=== PATIENT | male | born 1985 | race Caucasian/White ===

== ENCOUNTER 2016-10-23 11:15 | Emergency (ER) | payer OTHER ==
[~2016-10-23] VITALS: Ht 180.3 cm; Wt 77.6 kg
[2016-10-23 11:24] VITALS: BP 143/85; PULSE 116; TEMP 36.8; O2SAT 96; Ht 180.3 cm; Wt 77.6 kg
[2016-10-23] MEDS ORDERED: NVLGI/PEN SQ (11:38)
--- NOTE | 2016-10-23 12:49 | EMERGENCY ROOM VISIT NOTE ---
ED Visit Note First contact with patient: 12:10 31-year-old male with an abscess on the right side of his neck which has been draining. The patient was fully evaluated by Joe Almanzar PA-C. Please see his note. I also independently evaluated the patient. The abscess/cyst appears to be deflated. There is some persistent drainage. I do not believe it requires further I&D at this time. The patient has been on antibiotics. A culture was obtained. We will await results of the culture prior to starting another antibiotic. The patient should follow-up with ENT if it continues to drain or gets any bigger.
--- NOTE | 2016-10-23 17:57 | EMERGENCY ROOM VISIT NOTE ---
History First contact with patient: 12:10 Chief Complaint: BLEEDING Stated Complaint: BOIL/CYST WILL NOT STOP BLEEDING Nursing Triage Summary: Patient has an abcess, right side of neck. STarted draining approximately one week ago. [facility] Site draining purulent sangenous drainage. History of Present Illness The patient is a 31 year old white male who presents to the Emergency Room with complaints of a draining wound on his right lower neck. Patient states he has had a cyst over his right lower neck for at least 2 years. It was rather large. Last week it decompressed and was painful. He states he was seen at an urgent care clinic and was placed on Bactrim. The skin opened over the cyst and he states a large amount of pus drained from the area. At this point will not stop draining. He states he finished his antibiotics approximately one week ago. He was at work today and the wound would not stop draining. His boss sent him to the ED for evaluation and stated he could not work with a draining wound. He does work at a [employer]. No other complaints at this point. He has not seen any surgeon for excision. Review of Systems REVIEW OF SYSTEM: HEENT: No dizziness, visual problems, hearing loss, or tinnitus. There is no difficulty swallowing and no oral lesions are present. PULMONARY: No cough, shortness of breath, sputum production or hemoptysis. CARDIOVASCULAR: No chest pain, palpitations, shortness of breath or peripheral edema. GASTROINTESTINAL: No diarrhea, constipation, nausea, vomiting, or abdominal pain. GENITOURINARY: No dysuria, frequency, urgency or nocturia. NEUROLOGIC: No weakness, muscle tenderness, epilepsy or history of neurological problems. MUSCULOSKELETAL: No history of joint tenderness/swelling. No history of arthritis or arthralgias. SKIN: No rashes or lesions. PSYCHIATRIC: Positive history of depression ENDOCRINE: No history of thyroid disorders, or abnormal hair growth. Past Medical/Surgical History Medical Problems: (1) Dental Disorder Nos (2) Diabetes (3) Hypertension (4) Major depressive disorder, recurrent episode (5) Male Genital Dis Nos (6) Rectal & Anal Hemorrhage Family History Cancer Diabetes mellitus Heart disease Hypertension Kidney disease Kidney stones Seizures Social History Smoking Status: Current Every Day Smoker Smokeless Tobacco Use: No Drug Use: marijuana Marital Status: single Housing Status: lives with family Occupation Status: employed Current/Historical Medications Scheduled Insulin Aspart (Novolog Flexpen), Unknown Dose SQ TID Insulin Glargine (Lantus Solostar), 15 UNITS SQ AMPM Allergies Coded Allergies: Codeine (Verified Adverse Reaction, Intermediate, BECOMES VERY AGGRESSIVE , 10/23/16) Physical Exam Vital Signs Date Time Temp Pulse Resp B/P Pulse Ox O2 Delivery O2 Flow Rate FiO2 10/23/16 11:24 36.8 116 20 143/85 96 Room Air Pain Rating (0-10): 4.0 Physical Exam Gen.: Well-developed, well-nourished, young white male, in obvious discomfort. No acute distress. Laying on a bed. Alert and oriented. Skin:Warm and dry with good turgor. No rashes. No erythema. He has a punctate opening over his right lower neck. There is bloody purulent drainage oozing from the area. It is slowly expressible. There is induration of the skin around the opening. Mild ecchymosis as well. Cyst wall is palpable. The patient is not diaphoretic. No abrasions. Musculoskeletal: Patient has full range of motion of his neck and right shoulder. Medical Decision & Procedures ED Course Patient was educated regarding today's findings. Conservative care measures were discussed. The sebaceous cyst has ruptured. There is only a small amount of resistant drainage. A pressure dressing was applied. It is close to the carotid vasculature. He will likely require the cyst wall to be excised, but this will need to be done by general surgery or ENT. I do not think opening it up further in the ED is necessary at this point. He may continue to express the small amount of purulent drainage. He may return to work if he can keep the area covered and dry. I do not think antibiotics are necessary at this point as it is are draining, almost entirely decompressed, and he was on antibiotics last week. Wound culture was obtained to see if this is consistent with MRSA. Patient was seen in conjunction with Dr. Schultz, who also evaluated the patient and concurred with today's diagnosis and treatment plan. Medical Decision Possibility of sebaceous cyst, fistula, cellulitis, and retained foreign body were considered. Impression Primary Impression: Sebaceous cyst Departure Information Dispostion Home / Self-Care Condition GOOD Referrals Shereen Nieto M.D. Forms HOME CARE DOCUMENTATION FORM, MOTRIN USE, TYLENOL USE, IMPORTANT VISIT INFORMATION Patient Instructions My [facility] Additional Instructions Warm moist compresses to the neck several times per day to promote drainage Follow-up with ENT to discuss excision Tylenol and Motrin every 6 hours as needed for discomfort Patient may return to work today as long as the wound is covered and is no external drainage
[2016-12-11] MEDS ORDERED: NCDT21 TD (14:56)
[2016-12-11] MEDS ORDERED: NVLGIPEN SC (14:56)
[2017-04-02] MEDS ORDERED: INSDGIPEN SQ (11:38)
[2017-04-04] MEDS ORDERED: NICO21DI4 EXT (13:06)
[2017-04-04] MEDS ORDERED: NVLGI7030 SC (13:06)
== END 2016-10-23 13:13 | disposition home or self-care (01) ==
LOC: C.EDB 11:17 → C.EDC 13:13
DX: L72.3 Sebaceous cyst (principal); E11.9 Type 2 diabetes mellitus without complications; I10 Essential (primary) hypertension; F32.9 Major depressive disorder, single episode, unspecified; Z83.3 Family history of diabetes mellitus; Z82.49 Family history of ischemic heart disease and other diseases of the circulatory system; Z82.0 Family history of epilepsy and other diseases of the nervous system; F17.210 Nicotine dependence, cigarettes, uncomplicated; Z79.4 Long term (current) use of insulin

== ENCOUNTER 2016-12-09 20:33 | Inpatient (IN) | payer OTHER ==
[~2016-12-09] VITALS: Ht 180.3 cm; Wt 79.0 kg
[~2016-12-09 20:33] MED LIST: NVLGI/PEN SQ
[2016-12-09] MEDS ORDERED: SODIUM CHLORIDE 0.9% 1000ML 2,000 ML IV STA (20:52)
--- NOTE | 2016-12-09 21:12 | DIAGNOSTIC IMAGING REPORT ---
CHEST ONE VIEW PORTABLE CLINICAL HISTORY: Mood Disorder COMPARISON STUDY: 06/18/2016 FINDINGS: The cardiac and mediastinal contours are normal. There is no evidence of focal pulmonary consolidation. There is no evidence of failure. No pleural effusions are visualized.[ IMPRESSION: No active disease in the chest. Electronically signed by: Ramon Keyes M.D. 12/09/2016 9:11 PM Dictated Date/Time: 12/09/2016 9:10 PM
[2016-12-09] MEDS ORDERED: NVLGI/PEN SQ (21:16)
[2016-12-09 21:36] LABS: ISTAT CARBON DIOXIDE 23 mEq/l (24-31); ISTAT CHLORIDE 89 mEq/L (101-112); ISTAT CREATININE 1.1 mg/dl (0.6-1.3); ISTAT HEMATOCRIT 44 % (42-52); ISTAT IONIZED CALCIUM 1.14 mmol/l (1.12-1.32); ISTAT SODIUM 128 mEq/L (135-144)
[2016-12-09] MEDS ORDERED: INSULIN IV INFUSION PROTOCOL STA ×2 (21:46→22:58)
[2016-12-09 21:57] LABS: BUN/CREATININE RATIO 8.5 (10-20); CALCIUM 8.2 mg/dl (8.5-10.1); CREATININE 1.7 mg/dl (0.60-1.40); POTASSIUM 4.3 mmol/L (3.5-5.1); THYROID STIMULATING HORMONE 1.08 uIu/ml (0.300-4.500)
[2016-12-09] MEDS ORDERED: INSULIN IV INFUSION PROTOCOL SCH (22:00)
[2016-12-09] MEDS ORDERED: MODERATE STRESS LEVEL ONE (22:00)
[2016-12-09] MEDS ORDERED: INSULIN HUMAN REGULAR IV BOLUS 4 UNIT in SYRINGE 0 ML IV STA (22:02)
[2016-12-09] MEDS ORDERED: INSULIN REGULAR 250 UNITS in SODIUM CHLORIDE 0.9% 250ML 250 ML IV STA (22:03)
[2016-12-09 22:09] LABS: BETA-HYDROXYBUTYRATE 31.18 mg/dL (0.2-2.81)
[2016-12-09 22:13] LABS: URINE APPEARANCE CLEAR (CLEAR); URINE BILIRUBIN NEG (NEG); URINE COLOR YELLOW; URINE NITRITE NEG (NEG); URINE PH 5.5 (4.5-7.5); UROBILINOGEN NEG (NEG)
[2016-12-09 22:17] LABS: MANUAL MICROSCOPIC REQUIRED? NO; REVIEW REQ? NO
[2016-12-09 22:22] LABS: VEN BLD GAS O2 SATURATION < 60.0 %; VEN BLOOD GAS BASE EXCESS 0.1 mmol/L; VENOUS BLOOD GAS PCO2 51 mmHg (38.0-50.0); VENOUS BLOOD GAS PO2 22 mmHg
[2016-12-09 22:28] LABS: BENZODIAZEPINE, URINE NEG (NEG); COCAINE,URINE NEG (NEG); PHENCYCLIDINE, URINE NEG (NEG)
[2016-12-09] MEDS ORDERED: PENDING NSS+20mEq KCL IVF SCH (23:00)
[2016-12-09] MEDS ORDERED: DC ALL PREVIOUSLY ORDERED DIABETES MEDS ONE (23:00)
[2016-12-09] MEDS ORDERED: DKA GOAL RANGE 150-250 mg/dl 1 EA ONE (23:00)
[2016-12-09] MEDS ORDERED: PHARMACY GLYCEMIC MGMT CONSULT PRN (23:00)
[2016-12-09] MEDS ORDERED: SEVERE STRESS LEVEL ONE (23:00)
[2016-12-09] MEDS ORDERED: PENDING D5 1/2NS+20mEq KCL IVF SCH (23:00)
--- NOTE | 2016-12-09 23:02 | History and Physical ---
History & Physical Date & Time of Service: Dec 09, 2016 at 23:02 Chief Complaint: Doesn't Want To Live Anymore, Needs Help Primary Care Physician: Kylah Orellana D.O. History of Present Illness Source: patient this is 31 yo M with hx of Type 1 DM diagnosed approx 3 yrs back on Lantus and NovoLog insulin -poorly controlled BSG ( A1C ~13 ) hx of depression and anxiety disorder, presented to ED with suicidal ideation - severe depression " life is not worth living any more " pt has been going through very stressful times -having financial crisis as he is responsible to pay for child support of 5 young children mentions his Pay check has been Zero , has been able to visit the kids also could not asked for custody rights as he can not afford to pay for the court visits He has been feeling very down in past 2 weeks, having crying spells, stopped taking his insulins , binging on sugary food and drinks -in order to get into Diabetic Coma has been having nausea /vomiting , blurred vision , increased thirst , increased urination , severe acid reflux symptoms in the ED BSG elevated > 900 , with increased anion gap , acute renal failure , metabolic acidosis pt given iV fluids bolus , started on insulin gtt during my interview pt mentions of feeling much better -abdominal pain , cramps , nausea , headache has improved feels very depressed and hopeless, crying says that he tried to asencio his depression for past 2 weeks , now can not get out of it , does not feel there is any thing in life worth living for pt denies of any drug overdose , alcohol binging Past Medical/Surgical History Medical Problems: (1) Diabetes Status: Chronic (2) Hypertension Status: Chronic Family History Cancer Diabetes mellitus Heart disease Hypertension Kidney disease Kidney stones Seizures Social History Smoking Status: Never Smoker Drug Use: marijuana Marital Status: single Housing status: lives with family Occupational Status: employed Immunizations History of Influenza Vaccine: Unknown History of Tetanus Vaccine?: Unknown History of Pneumococcal: Unknown Multi-Drug Resistant Organisms History of MDRO: No Allergies Coded Allergies: Codeine (Verified Adverse Reaction, Intermediate, BECOMES VERY AGGRESSIVE , 12/09/16) Home Medications Scheduled Insulin Aspart (Novolog Flexpen), 1 DOSE SQ SLIDING SCALE Insulin Glargine (Lantus Solostar), 15 UNITS SQ AMPM Review of Systems Constitutional: + chills, + fatigue, + fever, + sweats, + weakness, + weight loss Eyes: + diplopia, + worsening of vision Respiratory: + dyspnea at rest, + dyspnea on exertion, + shortness of breath Cardiovascular: + chest pain, + palpitations Abdomen: + nausea, + pain, + vomiting Musculoskeletal: + calf pain, + joint pain, + muscle pain Genitourinary - Male: + urinary frequency Neurologic: + balance problems, + numbness/tingling, + vertigo, + weakness Psychiatric: + anhedonism, + anxiety, + depression symptoms, + insomnia, + problem reported (suicidial ideation ) Endocrine: + excessive thirst, + fatigue Physical Exam Vital Signs Date Time Temp Pulse Resp B/P Pulse Ox O2 Delivery O2 Flow Rate FiO2 12/09/16 22:34 61 18 130/72 98 Room Air 12/09/16 20:37 36.5 91 20 145/91 100 Room Air General Appearance: + moderate distress (depressed , very tearful ) Head: normocephalic, atraumatic Eyes: sclerae normal Neck: no JVD Respiratory/Chest: chest non-tender, lungs clear, normal breath sounds, no respiratory distress Cardiovascular: regular rate, rhythm Abdomen/GI: non tender, soft Extremities/Musculoskelatal: normal capillary refill, no pedal edema 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: alert, oriented x 3, + pertinent finding (depressed ) Skin: normal color, warm/dry, no rash Diagnostics Laboratory Results Results Past 24 Hours Test 12/09/16 20:09 12/09/16 20:49 12/09/16 21:10 12/09/16 21:22 Range/Units Sodium Level 128 136-145 mmol/L Potassium Level 4.3 3.5-5.1 mmol/L Chloride Level 89 98-107 mmol/L Carbon Dioxide Level 25 21-32 mmol/L Anion Gap 14.0 21.0 16-25 mmol/L Blood Urea Nitrogen 14 7-18 mg/dl Creatinine 1.70 0.60-1.40 mg/dl Est Creatinine Clear Calc Drug Dose 68.3 ml/min Estimated GFR () 61.8 Estimated GFR (Non- 53.3 BUN/Creatinine Ratio 8.5 10-20 Random Glucose 928 70-99 mg/dl Calcium Level 8.2 8.5-10.1 mg/dl Total Bilirubin 0.6 0.2-1 mg/dl Direct Bilirubin 0.1 0-0.2 mg/dl Aspartate Amino Transf (AST/SGOT) 12 15-37 U/L Alanine Aminotransferase (ALT/SGPT) 20 12-78 U/L Alkaline Phosphatase 96 45-117 U/L Total Protein 6.6 6.4-8.2 gm/dl Albumin 3.8 3.4-5.0 gm/dl Beta-Hydroxybutyric Acid 31.18 0.2-2.81 mg/dL Thyroid Stimulating Hormone (TSH) 1.080 0.300-4.500 uIu/ml Ethyl Alcohol mg/dL < 3.0 0-3 mg/dl Bedside Glucose > 600 70-99 mg/dl Urine Color YELLOW Urine Appearance CLEAR CLEAR Urine pH 5.5 4.5-7.5 Urine Specific [place] 1.030 1.000-1.030 Urine Protein NEG NEG Urine Glucose (UA) 3+ NEG Urine Ketones 1+ NEG Urine Occult Blood NEG NEG Urine Nitrite NEG NEG Urine Bilirubin NEG NEG Urine Urobilinogen NEG NEG Urine Leukocyte Esterase NEG NEG Urine Opiates Screen NEG NEG Urine Methadone, Qualitative NEG NEG Urine Barbiturates NEG NEG Urine Phencyclidine (PCP) Level NEG NEG Ur Amphetamine/Methamphetamine NEG NEG MDMA (Ecstasy) Screen NEG NEG Urine Benzodiazepines Screen NEG NEG Urine Cocaine Metabolite NEG NEG Urine Marijuana (THC) POS NEG Bedside Hemoglobin 15.0 14.0-18.0 g/dl Bedside Hematocrit 44 42-52 % Bedside Sodium 128 135-144 mEq/L Bedside Potassium 4.3 3.3-5.0 mEq/L Bedside Chloride 89 101-112 mEq/L Bedside Total CO2 23 24-31 mEq/l Bedside Blood Urea Nitrogen 15 7-18 mg/dl Bedside Creatinine 1.1 0.6-1.3 mg/dl Bedside Glucose (other) > 700 70-99 mg/dl Bedside Ionized Calcium (Andrwe) 1.14 1.12-1.32 mmol/l Test 12/09/16 22:08 12/09/16 22:15 Range/Units Venous Blood pH 7.34 7.36-7.41 Venous Blood Partial Pressure CO2 51 38.0-50.0 mmHg Venous Blood Partial Pressure O2 22 mmHg Venous Blood HCO3 27 mmol/L Venous Blood Oxygen Saturation < 60.0 % Venous Blood Base Excess 0.1 mmol/L Bedside Glucose > 600 70-99 mg/dl CXR normal Normal EKG Impression Assessment and Plan DKA /TYPE 1 DM VERY POORLY CONTROLLED has not been taking insulin intentionally for past 2 weeks eating and drinking food and drink with high sugar content -with intention to get into diabetic coma presented with DKA , elevated anion gap , elevated beta hydroxybutyrate , positive urine ketone , BSG > 900 started on IV insulin gtt IV fluid bolus given due to severe dehydration , vol loss cont IV fluid NSS with 20 Kcl to prevent hypokalemia with insulin infusion Lab work : PRP , MG. phos will be followed q 4hrs as per DKA protocol Hb A1 c > 13 ( showing baseline poor control ) recreational assistant consulted pharmacy consulted for glycemic management ACUTE KIDNEY INJURY : Due to above cont IVF follow PRP DEPRESSION /SUICIDAL IDEATION does not follow with psychiatry as out pt Psych consult requested pt will benefit with SSRI Tx will defer to Psychiatry if pt meets criteria for in patient psych admission FULL CODE Resuscitation Status FULL RESUSCITATION VTE Prophylaxis VTE Risk Assessment Done? Y/N: Yes Risk Level: Moderate Given or contraindicated: Unfractionated heparin SQ
[2016-12-09] MEDS ORDERED: ONDANSETRON INJ 2 MG/ML 2 ML VIAL IV PRN (23:15)
[2016-12-09] MEDS ORDERED: ACETAMINOPHEN 325 MG TAB PO PRN (23:15)
[2016-12-09] MEDS ORDERED: MAGNESIUM HYDROXIDE SUSP 30 ML UDC PO PRN (23:15)
[2016-12-09] MEDS ORDERED: POLYETHYLENE (MIRALAX) 17 GM PACK PO PRN (23:15)
[2016-12-09] MEDS ORDERED: ALUMINUM/MAGNESIUM/SIMETH (MAALOX MAX) 30 ML UDC PO PRN (23:15)
[2016-12-09] MEDS ORDERED: LORAZEPAM 2 MG/ML 1 ML VIAL IV PRN (23:15)
[2016-12-09 23:40] LABS: HEMATOCRIT 41.2 % (42-52); MEAN CELL VOLUME 87.7 fL (80-100); MEAN CORPUSCULAR HEMOGLOBIN 33.6 pg (25-34); MEAN CORPUSCULAR HGB CONC 38.3 g/dl (32-36); MEAN PLATELET VOLUME 9.6 fL (7.4-10.4); PLATELET COUNT 133 K/uL (130-400); WHITE BLOOD COUNT 2.64 K/uL (4.8-10.8)
[2016-12-09 23:47] LABS: BASO % 0.8 %; BASO ABS # 0.02 K/uL (0-0.2); COMPLETE YES; EOS % 2.3 %; LYMPH % 24.6 %; LYMPH ABS # 0.65 K/uL (1.2-3.4); MONO % 8.7 %; NEUT % 63.6 %
[2016-12-10 00:20] VITALS: BP 130/72; PULSE 90; TEMP 37; O2SAT 99; BMI 24.5
[2016-12-10] MEDS ORDERED: SODIUM CHLORIDE 0.9% 1000ML 1,000 ML IV SCH (00:30)
[2016-12-10] MEDS ORDERED: GLUCAGON FOR INJ 1 MG VIAL SQ PRN (00:45)
[2016-12-10] MEDS ORDERED: GLUCOSE 40% GEL 15 GM TUBE PO PRN (00:45)
[2016-12-10] MEDS ORDERED: DEXTROSE 50% 50 ML SYR IV PRN (00:45)
[2016-12-10] MEDS ORDERED: GLUCOSE 10 TABS/TUBE PO PRN (00:45)
--- NOTE | 2016-12-10 01:19 | EMERGENCY ROOM VISIT NOTE ---
History Report prepared by Jennifer: Shyann Mejia Under the Supervision of: Dr. Henrry Ch D.O. First contact with patient: 20:40 Chief Complaint: MENTAL HEALTH EVALUATION Stated Complaint: DOESN'T WANT TO LIVE ANYMORE, NEEDS HELP History of Present Illness The patient is a 31 year old male who presents to the Emergency Room with complaints of constant depression and suicidal thoughts beginning 2 weeks ago. The patient states that he has been dealing with depression for the last 10 years by himself and recently his depression has worsened and he has realized that he needs help dealing with it. He reports that he has not seen anyone for his depression since his dad when he was 14. He states that he is a type I diabetic and has been trying to put himself into a diabetic coma over the last 2 weeks. The patient notes that he is struggling with money and paying child support and does not have the money to buy test strips. He complains of chest pressure beginning this morning about 12 hours ago that lasted a short period of time. He notes that he has been having heart burn lately. He denies any visual or auditory hallucinations, headache, fevers, shortness of breath, nausea , vomiting, diarrhea, pain with urination, drug or alcohol use, and melena. He notes suicidal ideation. Source of History: patient Onset: 2 weeks Position: other (mental health) Quality: other (depression) Timing: constant Associated Symptoms: + chest pain, No SOB, No diarrhea, No fevers, No headache, No melena, No nausea, No urinary symptoms, No vomiting Note: Pt has suicidal ideation. He denies any visual or auditory hallucinations, drug or alcohol use. Review of Systems See HPI for pertinent positives & negatives. A total of 10 systems reviewed and were otherwise negative. Past Medical & Surgical Medical Problems: (1) Dental Disorder Nos (2) Diabetes (3) Hypertension (4) Major depressive disorder, recurrent episode (5) Male Genital Dis Nos (6) Rectal & Anal Hemorrhage Family History Cancer Diabetes mellitus Heart disease Hypertension Kidney disease Kidney stones Seizures Social History Smoking Status: Current Every Day Smoker Drug Use: marijuana Marital Status: single Housing Status: lives with family Occupation Status: employed Current/Historical Medications Scheduled Insulin Aspart (Novolog Flexpen), 1 DOSE SQ SLIDING SCALE Insulin Glargine (Lantus Solostar), 15 UNITS SQ AMPM Allergies Coded Allergies: Codeine (Verified Adverse Reaction, Intermediate, BECOMES VERY AGGRESSIVE , 12/09/16) Physical Exam Vital Signs Date Time Temp Pulse Resp B/P Pulse Ox O2 Delivery O2 Flow Rate FiO2 12/09/16 22:34 61 18 130/72 98 Room Air 12/09/16 20:37 36.5 91 20 145/91 100 Room Air Physical Exam GENERAL: sitting up in bed, alert, well appearing, well nourished, no distress, non-toxic EYE EXAM: normal conjunctiva OROPHARYNX: no exudate, no erythema, lips, buccal mucosa, and tongue normal and mucous membranes are moist NECK: supple, no nuchal rigidity, no adenopathy, non-tender LUNGS: Clear to auscultation. Normal chest wall mechanics HEART: no murmurs, S1 normal and S2 normal ABDOMEN: abdomen soft, non-tender, normo-active bowel sounds, no masses, no rebound or guarding. BACK: Back is symmetrical on inspection and there is no deformity, no midline tenderness, no CVA tenderness. SKIN: no rashes and no bruising UPPER EXTREMITIES: upper extremities are grossly normal. LOWER EXTREMITIES: No pitting edema. NEURO EXAM: Normal sensorium, cranial nerves II-XII grossly intact, normal speech, no gross weakness of arms, no gross weakness of legs. PSYCH: Admits to suicidal ideations with a plan, denies auditory and visual hallucinations Medical Decision & Procedures ER Provider Diagnostic Interpretation: Radiology results as stated below per my review and the radiologist's interpretation: CHEST ONE VIEW PORTABLE FINDINGS: The cardiac and mediastinal contours are normal. There is no evidence of focal pulmonary consolidation. There is no evidence of failure. No pleural effusions are visualized. IMPRESSION: No active disease in the chest. Electronically signed by: Ramon Keyes M.D. 12/09/2016 9:11 PM Dictated Date/Time: 12/09/2016 9:10 PM Laboratory Results 12/09/16 20:09 Red Blood Count 4.70, Mean Corpuscular Volume 87.7, Mean Corpuscular Hemoglobin 33.6, Mean Corpuscular Hemoglobin Concent 38.3, Mean Platelet Volume 9.6, Neutrophils (%) (Auto) 63.6, Lymphocytes (%) (Auto) 24.6, Monocytes (%) (Auto) 8.7, Eosinophils (%) (Auto) 2.3, Basophils (%) (Auto) 0.8, Neutrophils # (Auto) 1.68, Lymphocytes # (Auto) 0.65, Monocytes # (Auto) 0.23, Eosinophils # (Auto) 0.06, Basophils # (Auto) 0.02 Test 12/09/16 20:09 12/09/16 21:10 12/09/16 21:22 12/09/16 22:08 White Blood Count 2.64 K/uL (4.8-10.8) Red Blood Count 4.70 M/uL (4.7-6.1) Hemoglobin 15.8 g/dL (14.0-18.0) Hematocrit 41.2 % (42-52) Mean Corpuscular Volume 87.7 fL (80-100) Mean Corpuscular Hemoglobin 33.6 pg (25-34) Mean Corpuscular Hemoglobin Concent 38.3 g/dl (32-36) Platelet Count 133 K/uL (130-400) Mean Platelet Volume 9.6 fL (7.4-10.4) Neutrophils (%) (Auto) 63.6 % Lymphocytes (%) (Auto) 24.6 % Monocytes (%) (Auto) 8.7 % Eosinophils (%) (Auto) 2.3 % Basophils (%) (Auto) 0.8 % Neutrophils # (Auto) 1.68 K/uL (1.4-6.5) Lymphocytes # (Auto) 0.65 K/uL (1.2-3.4) Monocytes # (Auto) 0.23 K/uL (0.11-0.59) Eosinophils # (Auto) 0.06 K/uL (0-0.5) Basophils # (Auto) 0.02 K/uL (0-0.2) RDW Standard Deviation 40.6 fL (36.4-46.3) RDW Coefficient of Variation 12.6 % (11.5-14.5) Immature Granulocyte % (Auto) 0.0 % Immature Granulocyte # (Auto) 0.00 K/uL (0.00-0.02) Red Blood Cell Morphology Unremarkable Est Creatinine Clear Calc Drug Dose 68.3 ml/min Total Bilirubin 0.6 mg/dl (0.2-1) Direct Bilirubin 0.1 mg/dl (0-0.2) Aspartate Amino Transf (AST/SGOT) 12 U/L (15-37) Alanine Aminotransferase (ALT/SGPT) 20 U/L (12-78) Alkaline Phosphatase 96 U/L (45-117) Total Protein 6.6 gm/dl (6.4-8.2) Albumin 3.8 gm/dl (3.4-5.0) Beta-Hydroxybutyric Acid 31.18 mg/dL (0.2-2.81) Thyroid Stimulating Hormone (TSH) 1.080 uIu/ml (0.300-4.500) Ethyl Alcohol mg/dL < 3.0 mg/dl (0-3) Urine Color YELLOW Urine Appearance CLEAR (CLEAR) Urine pH 5.5 (4.5-7.5) Urine Specific [place] 1.030 (1.000-1.030) Urine Protein NEG (NEG) Urine Glucose (UA) 3+ (NEG) Urine Ketones 1+ (NEG) Urine Occult Blood NEG (NEG) Urine Nitrite NEG (NEG) Urine Bilirubin NEG (NEG) Urine Urobilinogen NEG (NEG) Urine Leukocyte Esterase NEG (NEG) Urine Opiates Screen NEG (NEG) Urine Methadone, Qualitative NEG (NEG) Urine Barbiturates NEG (NEG) Urine Phencyclidine (PCP) Level NEG (NEG) Ur Amphetamine/Methamphetamine NEG (NEG) MDMA (Ecstasy) Screen NEG (NEG) Urine Benzodiazepines Screen NEG (NEG) Urine Cocaine Metabolite NEG (NEG) Urine Marijuana (THC) POS (NEG) Bedside Hemoglobin 15.0 g/dl (14.0-18.0) Bedside Hematocrit 44 % (42-52) Bedside Sodium 128 mEq/L (135-144) Bedside Potassium 4.3 mEq/L (3.3-5.0) Bedside Chloride 89 mEq/L (101-112) Bedside Total CO2 23 mEq/l (24-31) Bedside Blood Urea Nitrogen 15 mg/dl (7-18) Bedside Creatinine 1.1 mg/dl (0.6-1.3) Bedside Glucose (other) > 700 mg/dl (70-99) Bedside Ionized Calcium (Andrew) 1.14 mmol/l (1.12-1.32) Venous Blood pH 7.34 (7.36-7.41) Venous Blood Partial Pressure CO2 51 mmHg (38.0-50.0) Venous Blood Partial Pressure O2 22 mmHg Venous Blood HCO3 27 mmol/L Venous Blood Oxygen Saturation < 60.0 % Venous Blood Base Excess 0.1 mmol/L Laboratory results per my review. Medications Administered Medications (Trade) Dose Ordered Sig/Isac Route Start Time Stop Time Status Last Admin Dose Admin Sodium Chloride 2,000 ml @ 999 mls/hr Q2H1M STAT IV 12/09/16 20:52 12/09/16 22:52 DC 12/09/16 20:52 999 MLS/HR Insulin Human Regular 4 unit/ Syringe 4 ml @ 1 mls/min NOW STAT IV 12/09/16 22:02 12/09/16 22:05 DC 12/09/16 22:18 1 MLS/MIN Insulin Human Regular/Sodium Chloride (novoLIN-R/Nss 250ml) 252.5 ml @ 0 mls/hr NOW STAT IV 12/09/16 22:03 12/09/16 22:04 DC 12/09/16 22:19 4 MLS/HR ED Course ED COURSE: Vital signs were reviewed and normal The patients medical record was reviewed The above diagnostic studies were performed and reviewed. ED treatments and interventions as stated above. 2039: The patient was evaluated in room A7. A complete history and physical examination was performed. 2051: Sodium Chloride 2000 ml @ 999 mls/hr IV. 2145: Insulin Human Regular 1 ea NA. 2158: I spoke to the patient and updated him. 2199: Insulin Human Regular 1 ea NA, Insulin Protocol Moderate Stress Level 1 ea NA, Insulin Human Regular 4 unit/Syringe 4ml @ 1mls/min IV, Insulin Human Regular 250units/Sodium Chloride 252.5 ml @ 0mls/hr. 5: I reviewed the patient's case with Dr. Abdi will evaluate the patient for further management. 0000: Upon reevaluation, the patient is hemodynamically stable.I discussed my findings with the patient and he understands and agrees with the treatment plan. Based on the patients age, coexisting illnesses, exam and lab findings the decision to treat as an inpatient was made. The patient remained stable while under my care. The patient will be evaluated for further management. Medical Decision Differential diagnosis: Etiologies such as mood disorder, infection, hypoglycemia, electrolyte abnormalities, cardiac sources, intracerebral event, toxicologic, neurologic, as well as others were entertained. Patient is a 31-year-old male who presents the ER with suicidal ideations and a plan to go into a diabetic coma. He is type I diabetic and stop taking his insulin yesterday. Labs show a leukocytosis of 2.6. BSG was greater than 700. Sodium is slightly low at 128 but corrected is normal. Potassium is normal at 4.3. Lab glucose was 900. Patient did have ketones in his urine. VBG shows a slight acidosis at 7.34. He was placed on a insulin drip and bolus and given 2 L normal saline. He was updated bedside. He is agreeable to admission and will need evaluation by psychiatry for his suicidal ideations. Consults Time Called: [phone] Consulting Physician: Dr. Jni England Returned Call: [phone] I reviewed the patient's case with Dr. Abdi of [facility]. She will evaluate the patient for further management. Impression Primary Impression: Suicidal ideation Additional Impression: Hyperglycemia Scribe Attestation The scribe's documentation has been prepared under my direction and personally reviewed by me in its entirety. I confirm that the note above accurately reflects all work, treatment, procedures, and medical decision making performed by me. Departure Information Dispostion Being Evaluated By Hospitalist Referrals Kylah Orellana D.O. (PCP) Patient Instructions [facility] Problem Qualifiers
[2016-12-10 01:31] LABS: BUN/CREATININE RATIO 15.1 (10-20); CALCIUM 8.1 mg/dl (8.5-10.1); CREATININE 1.1 mg/dl (0.60-1.40); PHOSPHORUS 3.1 mg/dl (2.5-4.9); POTASSIUM 3.3 mmol/L (3.5-5.1)
[2016-12-10] MEDS ORDERED: NSS + 20MEQ KCL 1000ML 1,000 ML IV SCH (02:00)
[2016-12-10] MEDS ORDERED: NURSING VERBAL MED ORDER ONE ×2 (02:00→03:30)
[2016-12-10 02:23] LABS: BETA-HYDROXYBUTYRATE 14.03 mg/dL (0.2-2.81)
[2016-12-10] MEDS: D5W AND 1/2NSS + 20MEQ KCL 1,000 ML IV SCH ×3 (03:37→19:27)
[2016-12-10 04:00] VITALS: BP 114/69; PULSE 73; TEMP 36.5; O2SAT 97
[2016-12-10 04:52] LABS: BUN/CREATININE RATIO 17.1 (10-20); CALCIUM 8.3 mg/dl (8.5-10.1); CREATININE 0.81 mg/dl (0.60-1.40); MAGNESIUM 1.9 mg/dl (1.8-2.4)
[2016-12-10 04:54] LABS: INR 0.9 (0.9-1.1); PROTHROMBIN TIME (PATIENT) 9.8 SECONDS (9.0-12.0)
[2016-12-10 04:58] LABS: BETA-HYDROXYBUTYRATE 11.68 mg/dL (0.2-2.81); CHOLESTEROL/HDL RATIO 6.7; PHOSPHORUS 3.8 mg/dl (2.5-4.9)
[2016-12-10 05:13] LABS: HEMATOCRIT 36.4 % (42-52); MEAN CELL VOLUME 84.5 fL (80-100); MEAN CORPUSCULAR HEMOGLOBIN 33.4 pg (25-34); MEAN CORPUSCULAR HGB CONC 39.6 g/dl (32-36); MEAN PLATELET VOLUME 8.9 fL (7.4-10.4); PLATELET COUNT 129 K/uL (130-400); RED BLOOD COUNT 4.31 M/uL (4.7-6.1); WHITE BLOOD COUNT 4.28 K/uL (4.8-10.8)
[2016-12-10 05:57] LABS: ESTIMATED AVERAGE GLUCOSE 329 mg/dl; HA1C FLAG Normal (Normal)
[2016-12-10] MEDS ORDERED: POTASSIUM CHLORIDE 10 MEQ TABCR PO STA (06:11)
[2016-12-10 08:00] VITALS: BP 114/69; PULSE 83; TEMP 37; O2SAT 100
[2016-12-10] MEDS ORDERED: PNEUMOCOCCAL POLYSACCHARIDES 25 MCG/0.5 ML VIAL/SYR IM. ONE (08:00)
[2016-12-10] MEDS ORDERED: PNEUMOCOCCAL ADMINISTRATION CHARGE ONE (08:00)
[2016-12-10] MEDS ORDERED: INSULIN ASPART 100 UNITS/ML 3 ML PEN SC SCH ×2 (08:00→09:00)
[2016-12-10] MEDS: INSULIN GLARGINE SOLOSTAR 100 UNITS/ML 3 ML PEN SC SCH ×2 (08:03→20:12)
[2016-12-10] MEDS: PANTOprazole SOD 40 MG TAB PO SCH (08:05)
[2016-12-10] MEDS ORDERED: HEPARIN SOD 5000 UNIT/0.5 ML CARP SQ SCH (09:00)
--- NOTE | 2016-12-10 09:10 | Pharmacy Progress Note ---
Glycemic Control Intl Consult Date of Service Dec 10, 2016. Scope Glycemic Pharmacist consulted by Dr Abdi on 12/09/16 for glycemic control and to write orders per [facility] inpatient glycemic control protocol Objective Weight (Kilograms): 79.000 Accuchecks BSG (last 24hrs): Test 12/09/16 20:09 12/09/16 20:49 12/09/16 22:15 12/09/16 23:21 Random Glucose 928 mg/dl (70-99) Bedside Glucose > 600 mg/dl (70-99) > 600 mg/dl (70-99) 567 mg/dl (70-99) Test 12/10/16 00:38 12/10/16 00:54 12/10/16 01:29 12/10/16 02:22 Bedside Glucose 377 mg/dl (70-99) 336 mg/dl (70-99) 291 mg/dl (70-99) Random Glucose 395 mg/dl (70-99) Test 12/10/16 03:21 12/10/16 04:27 12/10/16 05:24 12/10/16 06:23 Bedside Glucose 250 mg/dl (70-99) 151 mg/dl (70-99) 135 mg/dl (70-99) Random Glucose 191 mg/dl (70-99) Test 12/10/16 07:44 12/10/16 08:44 Bedside Glucose 171 mg/dl (70-99) Laboratory Data (last 24hrs) Test 12/09/16 20:09 12/09/16 21:22 12/10/16 00:54 12/10/16 04:27 Anion Gap 14.0 mmol/L 21.0 mmol/L 11.0 mmol/L 10.0 mmol/L BUN/Creatinine Ratio 8.5 15.1 17.1 Blood Urea Nitrogen 14 mg/dl 17 mg/dl 14 mg/dl Creatinine 1.70 mg/dl 1.10 mg/dl 0.81 mg/dl Hemoglobin A1c 13.1 % Potassium Level 4.3 mmol/L 3.3 mmol/L 3.0 mmol/L Sodium Level 128 mmol/L 137 mmol/L 141 mmol/L White Blood Count 2.64 K/uL 4.28 K/uL Red Blood Count 4.70 M/uL Hemoglobin 15.8 g/dL Hematocrit 41.2 % Mean Corpuscular Volume 87.7 fL Mean Corpuscular Hemoglobin 33.6 pg Mean Corpuscular Hemoglobin Concent 38.3 g/dl Platelet Count 133 K/uL Mean Platelet Volume 9.6 fL Neutrophils (%) (Auto) 63.6 % Lymphocytes (%) (Auto) 24.6 % Monocytes (%) (Auto) 8.7 % Eosinophils (%) (Auto) 2.3 % Basophils (%) (Auto) 0.8 % Neutrophils # (Auto) 1.68 K/uL Lymphocytes # (Auto) 0.65 K/uL Monocytes # (Auto) 0.23 K/uL Eosinophils # (Auto) 0.06 K/uL Basophils # (Auto) 0.02 K/uL Recent Pertinent Medications Outpatient Anti-diabetic Regimen: * NovoLog * Lantus 15 units SQ BID The patient is currently receiving: * IV insulin infusion * severe protocol * Goal range 150-250mg/dL * NovoLog PC and HS for coverage of meals Risk Factors for Insulin Resistance: * IVF: NSS --> NS+20mEq KCl --> D51/2NS+20mEq KCl * Diet: T2DM * Elevated A1c Assessment & Plan ASSESSMENT: * ADA & AACE recommend a goal blood sugar range 140-180 mg/dl for the majority of critically ill & non-critically ill patients. However, more stringent targets may be selected in individual cases. 12/10/16 * 31 y/o type I diabetic (x ~3 years) who also suffers from depression and anxiety. * Recently stopped taking insulins and eating poorly to induce diabetic coma. * A1c elevated * patient feels hypoglycemic when BSG 117mg/dL per RN * BSG on admit ~900mg/dL, anion gap open, BHA elevated * Insulin infusion began in ED * Currently, BSGs WNL and gap closed * Time to transition off of insulin and to SQ basal/bolus insulin - utilize both weight based dosing as well as home regimen for dose calculation PLAN FOR INPATIENT GLYCEMIC CONTROL: * Insulin infusion currently active * Decrease goal range to 140-180mg/dL until transition complete * Overlap insulin infusion and SQ insulin for ~6 hours * Begin Lantus SQ BID * 5 units if BSG is below 120mg/dL * 10 units if BSG is 120-160mg/dL * 15 units if BSG is above 160mg/dL * Begin NovoLog AC and HS * Correction factor: 30mg/dL/unit * Carb ratio: 1 unit per 10 g of CHO consumed * Goal range: 140-180mg/dL while in ICU and also for elevated A1c (lower BSG feels hypoglycemic) * A1c current * added to discharge instructions RECOMMENDATIONS FOR DISCHARGE: * awaited * Please note that the plan above was derived based on current level of insulin resistance and hospital stress. These recommendations are appropriate for inpatient admission only. Plan of care upon discharge will need to be reassessed to avoid potential outpatient hypo/hyperglycemia. Thank you.
[2016-12-10 09:22] LABS: BUN/CREATININE RATIO 15.3 (10-20); CALCIUM 8.1 mg/dl (8.5-10.1); CREATININE 0.79 mg/dl (0.60-1.40); MAGNESIUM 1.8 mg/dl (1.8-2.4); POTASSIUM 3.4 mmol/L (3.5-5.1)
[2016-12-10 10:20] VITALS: Ht 180.3 cm; Wt 79.0 kg
[2016-12-10] MEDS ORDERED: PANTOprazole INJ 40 MG in SYRINGE 0 ML IV SCH (11:00)
[2016-12-10] MEDS: INSULIN ASPART 100 UNITS/ML 3 ML PEN SC SCH ×3 (11:00→21:39)
[2016-12-10] MEDS ORDERED: INSULIN REGULAR 250 UNITS in SODIUM CHLORIDE 0.9% 250ML 250 ML IV SCH (11:30)
[2016-12-10 12:00] VITALS: BP 118/59; PULSE 93; O2SAT 95; O2SAT 97
[2016-12-10 12:39] LABS: BUN/CREATININE RATIO 11.6 (10-20); CALCIUM 8.4 mg/dl (8.5-10.1); CREATININE 0.9 mg/dl (0.60-1.40); PHOSPHORUS 3.8 mg/dl (2.5-4.9); POTASSIUM 4.2 mmol/L (3.5-5.1)
[2016-12-10] MEDS: HEPARIN SOD 5000 UNIT/0.5 ML CARP SQ SCH ×2 (15:09→20:15)
[2016-12-10 16:58] LABS: BUN/CREATININE RATIO 14.7 (10-20); CALCIUM 8.4 mg/dl (8.5-10.1); CREATININE 0.78 mg/dl (0.60-1.40); MAGNESIUM 1.9 mg/dl (1.8-2.4); POTASSIUM 3.8 mmol/L (3.5-5.1)
--- NOTE | 2016-12-10 17:00 | Psychiatric Consultation ---
Consultation Date of Consultation Dec 10, 2016. Identifying Data Yosvany Gonzalez is a 31-year-old male who currently lives with various friends in [place]. He was admitted to medical floor for significantly elevated blood glucose after purposely stopping his insulin and eating inappropriate foods as a suicide attempt. Chief Complaint "It's all still hopeless". History of Present Illness patient known to me from a previous consultation in June 2016. Stressors are essentially the same, unable to support himself/find stable housing on amount he is able to make working (now at a [employer]). He has admitted to multiple staff (302 petitioning statement from nurse informatics educator on chart) that he has been suicidal with plan to from uncontrolled diabetes. glucose >900 on presentation, HGbA1C historically >13. Past Psychiatric History Current OP Treatment: no current treatment ([facility] referral in fall, unclear follow through) Prior OP Treatment: no prior treatment Prior Psych Hospitalizations: other (while in (basic), see consult) Suicide Attempts: Yes (kife to throat but denies now attempt, states wanted out of when found out sib ) Past Medication Trials historically declines Past Medical/Surgical History (1) DKA (diabetic ketoacidoses) (2) GERD (gastroesophageal reflux disease) (3) Hypertension Allergies Allergies: Coded Allergies: Codeine (Verified Adverse Reaction, Intermediate, BECOMES VERY AGGRESSIVE , 12/09/16) Home Medications Scheduled Insulin Aspart (Novolog Flexpen), 1 DOSE SQ SLIDING SCALE Insulin Glargine (Lantus Solostar), 15 UNITS SQ AMPM Family History Cancer Diabetes mellitus Heart disease Hypertension Kidney disease Kidney stones Seizures History of Suicide: Yes (biological sister commited suicide in college, little details known) Alcohol Use Alcohol Use In Past 12 Months: Yes (denies recent but hx of binge drinking) Smoking Use Smoking Status: Current Every Day Smoker Substance History regular MJ use Personal History Lives in: [place] area Education: graduated from high school, other Work History: [employer] Children: 5 preschool age children from 4 different women (including twin girls ) Spiritual Affiliation: Riley Review of Systems Psych: denies symptoms other than stated above Constitutional: denied Cardiovascular: denied GI: denied Neurologic: denied Remainder of 10 body systems also reviewed and denied other than noted above. Examination Vital Signs Vital Signs Past 12 Hours Date Time Temp Pulse Resp B/P Pulse Ox O2 Delivery O2 Flow Rate FiO2 4/7/17 12:00 97 Room Air 12/10/16 12:00 93 20 118/59 95 Room Air 12/10/16 08:00 Room Air 12/10/16 08:00 37.0 83 16 114/69 100 Room Air Laboratory Results Last 24 Hours Test 12/09/16 20:09 12/09/16 20:49 12/09/16 21:10 12/09/16 21:22 White Blood Count 2.64 K/uL Red Blood Count 4.70 M/uL Hemoglobin 15.8 g/dL Hematocrit 41.2 % Mean Corpuscular Volume 87.7 fL Mean Corpuscular Hemoglobin 33.6 pg Mean Corpuscular Hemoglobin Concent 38.3 g/dl Platelet Count 133 K/uL Mean Platelet Volume 9.6 fL Neutrophils (%) (Auto) 63.6 % Lymphocytes (%) (Auto) 24.6 % Monocytes (%) (Auto) 8.7 % Eosinophils (%) (Auto) 2.3 % Basophils (%) (Auto) 0.8 % Neutrophils # (Auto) 1.68 K/uL Lymphocytes # (Auto) 0.65 K/uL Monocytes # (Auto) 0.23 K/uL Eosinophils # (Auto) 0.06 K/uL Basophils # (Auto) 0.02 K/uL RDW Standard Deviation 40.6 fL RDW Coefficient of Variation 12.6 % Immature Granulocyte % (Auto) 0.0 % Immature Granulocyte # (Auto) 0.00 K/uL Red Blood Cell Morphology Unremarkable Prothrombin Time 9.8 SECONDS Prothromb Time International Ratio 0.9 Sodium Level 128 mmol/L Potassium Level 4.3 mmol/L Chloride Level 89 mmol/L Carbon Dioxide Level 25 mmol/L Anion Gap 14.0 mmol/L 21.0 mmol/L Blood Urea Nitrogen 14 mg/dl Creatinine 1.70 mg/dl Est Creatinine Clear Calc Drug Dose 68.3 ml/min Estimated GFR () 61.8 Estimated GFR (Non- 53.3 BUN/Creatinine Ratio 8.5 Random Glucose 928 mg/dl Estimated Average Glucose 329 mg/dl Hemoglobin A1c 13.1 % Calcium Level 8.2 mg/dl Total Bilirubin 0.6 mg/dl Direct Bilirubin 0.1 mg/dl Aspartate Amino Transf (AST/SGOT) 12 U/L Alanine Aminotransferase (ALT/SGPT) 20 U/L Alkaline Phosphatase 96 U/L Total Protein 6.6 gm/dl Albumin 3.8 gm/dl Beta-Hydroxybutyric Acid 31.18 mg/dL Thyroid Stimulating Hormone (TSH) 1.080 uIu/ml Ethyl Alcohol mg/dL < 3.0 mg/dl Bedside Glucose > 600 mg/dl Urine Color YELLOW Urine Appearance CLEAR Urine pH 5.5 Urine Specific [place] 1.030 Urine Protein NEG Urine Glucose (UA) 3+ Urine Ketones 1+ Urine Occult Blood NEG Urine Nitrite NEG Urine Bilirubin NEG Urine Urobilinogen NEG Urine Leukocyte Esterase NEG Urine Opiates Screen NEG Urine Methadone, Qualitative NEG Urine Barbiturates NEG Urine Phencyclidine (PCP) Level NEG Ur Amphetamine/Methamphetamine NEG MDMA (Ecstasy) Screen NEG Urine Benzodiazepines Screen NEG Urine Cocaine Metabolite NEG Urine Marijuana (THC) POS Bedside Hemoglobin 15.0 g/dl Bedside Hematocrit 44 % Bedside Sodium 128 mEq/L Bedside Potassium 4.3 mEq/L Bedside Chloride 89 mEq/L Bedside Total CO2 23 mEq/l Bedside Blood Urea Nitrogen 15 mg/dl Bedside Creatinine 1.1 mg/dl Bedside Glucose (other) > 700 mg/dl Bedside Ionized Calcium (Andrew) 1.14 mmol/l Test 12/09/16 22:08 12/09/16 22:15 12/09/16 23:21 12/10/16 00:38 Venous Blood pH 7.34 Venous Blood Partial Pressure CO2 51 mmHg Venous Blood Partial Pressure O2 22 mmHg Venous Blood HCO3 27 mmol/L Venous Blood Oxygen Saturation < 60.0 % Venous Blood Base Excess 0.1 mmol/L Bedside Glucose > 600 mg/dl 567 mg/dl 377 mg/dl Test 12/10/16 00:54 12/10/16 01:29 12/10/16 02:22 12/10/16 03:21 Venous Blood pH 7.40 Sodium Level 137 mmol/L Potassium Level 3.3 mmol/L Chloride Level 99 mmol/L Carbon Dioxide Level 27 mmol/L Anion Gap 11.0 mmol/L Blood Urea Nitrogen 17 mg/dl Creatinine 1.10 mg/dl Est Creatinine Clear Calc Drug Dose 105.5 ml/min Estimated GFR () 104.6 Estimated GFR (Non- 90.2 BUN/Creatinine Ratio 15.1 Random Glucose 395 mg/dl Calcium Level 8.1 mg/dl Phosphorus Level 3.1 mg/dl Magnesium Level 2.0 mg/dl Beta-Hydroxybutyric Acid 14.03 mg/dL Chemistry Specimen Hemolysis Bedside Glucose 336 mg/dl 291 mg/dl 250 mg/dl Test 12/10/16 04:27 12/10/16 05:24 12/10/16 06:23 12/10/16 07:44 White Blood Count 4.28 K/uL Red Blood Count 4.31 M/uL Hemoglobin 14.4 g/dL Hematocrit 36.4 % Mean Corpuscular Volume 84.5 fL Mean Corpuscular Hemoglobin 33.4 pg Mean Corpuscular Hemoglobin Concent 39.6 g/dl RDW Standard Deviation 37.9 fL RDW Coefficient of Variation 12.3 % Platelet Count 129 K/uL Mean Platelet Volume 8.9 fL Venous Blood pH 7.41 Sodium Level 141 mmol/L Potassium Level 3.0 mmol/L Chloride Level 104 mmol/L Carbon Dioxide Level 27 mmol/L Anion Gap 10.0 mmol/L Blood Urea Nitrogen 14 mg/dl Creatinine 0.81 mg/dl Est Creatinine Clear Calc Drug Dose 143.2 ml/min Estimated GFR () 139.2 Estimated GFR (Non- 120.1 BUN/Creatinine Ratio 17.1 Random Glucose 191 mg/dl Calcium Level 8.3 mg/dl Phosphorus Level 3.8 mg/dl Magnesium Level 1.9 mg/dl Triglycerides Level 373 mg/dl Cholesterol Level 167 mg/dl HDL Cholesterol 25 mg/dl LDL Cholesterol, Calculated 67 mg/dl VLDL Cholesterol, Calculated 75 mg/dl Cholesterol/HDL Ratio 6.7 Beta-Hydroxybutyric Acid 11.68 mg/dL Bedside Glucose 151 mg/dl 135 mg/dl 171 mg/dl Test 12/10/16 08:44 12/10/16 09:09 12/10/16 09:56 12/10/16 10:36 Venous Blood pH 7.46 Sodium Level 140 mmol/L Potassium Level 3.4 mmol/L Chloride Level 104 mmol/L Carbon Dioxide Level 28 mmol/L Anion Gap 8.0 mmol/L Blood Urea Nitrogen 12 mg/dl Creatinine 0.79 mg/dl Est Creatinine Clear Calc Drug Dose 146.9 ml/min Estimated GFR () 140.6 Estimated GFR (Non- 121.3 BUN/Creatinine Ratio 15.3 Random Glucose 230 mg/dl Calcium Level 8.1 mg/dl Phosphorus Level 4.0 mg/dl Magnesium Level 1.8 mg/dl Beta-Hydroxybutyric Acid 1.47 mg/dL Bedside Glucose 174 mg/dl 117 mg/dl 85 mg/dl Test 12/10/16 11:03 12/10/16 11:30 12/10/16 11:59 12/10/16 12:03 Bedside Glucose 89 mg/dl 103 mg/dl 207 mg/dl Venous Blood pH 7.46 Sodium Level 141 mmol/L Potassium Level 4.2 mmol/L Chloride Level 104 mmol/L Carbon Dioxide Level 31 mmol/L Anion Gap 6.0 mmol/L Blood Urea Nitrogen 10 mg/dl Creatinine 0.90 mg/dl Est Creatinine Clear Calc Drug Dose 128.9 ml/min Estimated GFR () 133.3 Estimated GFR (Non- 115.0 BUN/Creatinine Ratio 11.6 Random Glucose 198 mg/dl Calcium Level 8.4 mg/dl Phosphorus Level 3.8 mg/dl Magnesium Level 2.0 mg/dl Beta-Hydroxybutyric Acid 1.70 mg/dL Test 12/10/16 13:04 12/10/16 14:56 12/10/16 16:04 12/10/16 16:16 Bedside Glucose 328 mg/dl 357 mg/dl 279 mg/dl Venous Blood pH 7.50 Mental Examination During interview pt is: alert and oriented Appearance: appropriately groomed Eye contact is: fair Motor behavior is: no abnormal motor movements Speech: normal in rate, rhythm & volume Affect: mood congruent, depressed Mood is: depressed Thought process: clear, coherent Thought content: reality based without delusions Suicidal thought are: present, Plan: present, Intent: present (though no intent here in hospital, wants help) Homicidal thoughts are: denied Hallucinations: denies auditory, denies visual Cognition: attention grossly intact, language grossly intact Intelligence estimated to be: average Insight: poor Judgement: poor Impression / Recommendations Impression 31 yo male with poorly controlled diabetes at baseline presents in DKA from purposely stopping insulin and altering diet as a suicide attempt Risk Factors Assessment Access to guns: No Recommendations (1) Major depressive disorder, recurrent episode inpatient psych admit is necessary when medically cleared, ideally at a hospital based facility for support for diabetes care consultation he is currently agreeable to a 201, there is a petitioning statement on chart and if he would attempt to leave AMA he should be held pending notification of [facility] for 302 proceedings
--- NOTE | 2016-12-10 17:31 | Progress Note ---
Medicine Progress Note Date & Time of Visit: Dec 10, 2016 at 17:11. Subjective Patient seen and examined. Requesting nicotine patch. Denies any complaints. Objective Last 8 Hrs Date Time Temp Pulse Resp B/P Pulse Ox O2 Delivery O2 Flow Rate FiO2 12/10/16 12:00 97 Room Air 12/10/16 12:00 93 20 118/59 95 Room Air Physical Exam: General-awake; alert; NAD Eyes-EOMI; no scleral icterus Neck-no stridor; trachea midline Lungs-CTA bilaterally; no wheezes/crackles Heart-RRR; no m/r/g Abdomen-soft; NTND; nBS Extremities-no c/c/e; no deformity Neuro-no focal deficits Laboratory Results: Last 24 Hours Test 12/09/16 20:09 12/09/16 20:49 12/09/16 21:10 12/09/16 21:22 White Blood Count 2.64 K/uL Red Blood Count 4.70 M/uL Hemoglobin 15.8 g/dL Hematocrit 41.2 % Mean Corpuscular Volume 87.7 fL Mean Corpuscular Hemoglobin 33.6 pg Mean Corpuscular Hemoglobin Concent 38.3 g/dl Platelet Count 133 K/uL Mean Platelet Volume 9.6 fL Neutrophils (%) (Auto) 63.6 % Lymphocytes (%) (Auto) 24.6 % Monocytes (%) (Auto) 8.7 % Eosinophils (%) (Auto) 2.3 % Basophils (%) (Auto) 0.8 % Neutrophils # (Auto) 1.68 K/uL Lymphocytes # (Auto) 0.65 K/uL Monocytes # (Auto) 0.23 K/uL Eosinophils # (Auto) 0.06 K/uL Basophils # (Auto) 0.02 K/uL RDW Standard Deviation 40.6 fL RDW Coefficient of Variation 12.6 % Immature Granulocyte % (Auto) 0.0 % Immature Granulocyte # (Auto) 0.00 K/uL Red Blood Cell Morphology Unremarkable Prothrombin Time 9.8 SECONDS Prothromb Time International Ratio 0.9 Sodium Level 128 mmol/L Potassium Level 4.3 mmol/L Chloride Level 89 mmol/L Carbon Dioxide Level 25 mmol/L Anion Gap 14.0 mmol/L 21.0 mmol/L Blood Urea Nitrogen 14 mg/dl Creatinine 1.70 mg/dl Est Creatinine Clear Calc Drug Dose 68.3 ml/min Estimated GFR () 61.8 Estimated GFR (Non- 53.3 BUN/Creatinine Ratio 8.5 Random Glucose 928 mg/dl Estimated Average Glucose 329 mg/dl Hemoglobin A1c 13.1 % Calcium Level 8.2 mg/dl Total Bilirubin 0.6 mg/dl Direct Bilirubin 0.1 mg/dl Aspartate Amino Transf (AST/SGOT) 12 U/L Alanine Aminotransferase (ALT/SGPT) 20 U/L Alkaline Phosphatase 96 U/L Total Protein 6.6 gm/dl Albumin 3.8 gm/dl Beta-Hydroxybutyric Acid 31.18 mg/dL Thyroid Stimulating Hormone (TSH) 1.080 uIu/ml Ethyl Alcohol mg/dL < 3.0 mg/dl Bedside Glucose > 600 mg/dl Urine Color YELLOW Urine Appearance CLEAR Urine pH 5.5 Urine Specific [place] 1.030 Urine Protein NEG Urine Glucose (UA) 3+ Urine Ketones 1+ Urine Occult Blood NEG Urine Nitrite NEG Urine Bilirubin NEG Urine Urobilinogen NEG Urine Leukocyte Esterase NEG Urine Opiates Screen NEG Urine Methadone, Qualitative NEG Urine Barbiturates NEG Urine Phencyclidine (PCP) Level NEG Ur Amphetamine/Methamphetamine NEG MDMA (Ecstasy) Screen NEG Urine Benzodiazepines Screen NEG Urine Cocaine Metabolite NEG Urine Marijuana (THC) POS Bedside Hemoglobin 15.0 g/dl Bedside Hematocrit 44 % Bedside Sodium 128 mEq/L Bedside Potassium 4.3 mEq/L Bedside Chloride 89 mEq/L Bedside Total CO2 23 mEq/l Bedside Blood Urea Nitrogen 15 mg/dl Bedside Creatinine 1.1 mg/dl Bedside Glucose (other) > 700 mg/dl Bedside Ionized Calcium (Andrew) 1.14 mmol/l Test 12/09/16 22:08 12/09/16 22:15 12/09/16 23:21 12/10/16 00:38 Venous Blood pH 7.34 Venous Blood Partial Pressure CO2 51 mmHg Venous Blood Partial Pressure O2 22 mmHg Venous Blood HCO3 27 mmol/L Venous Blood Oxygen Saturation < 60.0 % Venous Blood Base Excess 0.1 mmol/L Bedside Glucose > 600 mg/dl 567 mg/dl 377 mg/dl Test 12/10/16 00:54 12/10/16 01:29 12/10/16 02:22 12/10/16 03:21 Venous Blood pH 7.40 Sodium Level 137 mmol/L Potassium Level 3.3 mmol/L Chloride Level 99 mmol/L Carbon Dioxide Level 27 mmol/L Anion Gap 11.0 mmol/L Blood Urea Nitrogen 17 mg/dl Creatinine 1.10 mg/dl Est Creatinine Clear Calc Drug Dose 105.5 ml/min Estimated GFR () 104.6 Estimated GFR (Non- 90.2 BUN/Creatinine Ratio 15.1 Random Glucose 395 mg/dl Calcium Level 8.1 mg/dl Phosphorus Level 3.1 mg/dl Magnesium Level 2.0 mg/dl Beta-Hydroxybutyric Acid 14.03 mg/dL Chemistry Specimen Hemolysis Bedside Glucose 336 mg/dl 291 mg/dl 250 mg/dl Test 12/10/16 04:27 12/10/16 05:24 12/10/16 06:23 12/10/16 07:44 White Blood Count 4.28 K/uL Red Blood Count 4.31 M/uL Hemoglobin 14.4 g/dL Hematocrit 36.4 % Mean Corpuscular Volume 84.5 fL Mean Corpuscular Hemoglobin 33.4 pg Mean Corpuscular Hemoglobin Concent 39.6 g/dl RDW Standard Deviation 37.9 fL RDW Coefficient of Variation 12.3 % Platelet Count 129 K/uL Mean Platelet Volume 8.9 fL Venous Blood pH 7.41 Sodium Level 141 mmol/L Potassium Level 3.0 mmol/L Chloride Level 104 mmol/L Carbon Dioxide Level 27 mmol/L Anion Gap 10.0 mmol/L Blood Urea Nitrogen 14 mg/dl Creatinine 0.81 mg/dl Est Creatinine Clear Calc Drug Dose 143.2 ml/min Estimated GFR () 139.2 Estimated GFR (Non- 120.1 BUN/Creatinine Ratio 17.1 Random Glucose 191 mg/dl Calcium Level 8.3 mg/dl Phosphorus Level 3.8 mg/dl Magnesium Level 1.9 mg/dl Triglycerides Level 373 mg/dl Cholesterol Level 167 mg/dl HDL Cholesterol 25 mg/dl LDL Cholesterol, Calculated 67 mg/dl VLDL Cholesterol, Calculated 75 mg/dl Cholesterol/HDL Ratio 6.7 Beta-Hydroxybutyric Acid 11.68 mg/dL Bedside Glucose 151 mg/dl 135 mg/dl 171 mg/dl Test 12/10/16 08:44 12/10/16 09:09 12/10/16 09:56 12/10/16 10:36 Venous Blood pH 7.46 Sodium Level 140 mmol/L Potassium Level 3.4 mmol/L Chloride Level 104 mmol/L Carbon Dioxide Level 28 mmol/L Anion Gap 8.0 mmol/L Blood Urea Nitrogen 12 mg/dl Creatinine 0.79 mg/dl Est Creatinine Clear Calc Drug Dose 146.9 ml/min Estimated GFR () 140.6 Estimated GFR (Non- 121.3 BUN/Creatinine Ratio 15.3 Random Glucose 230 mg/dl Calcium Level 8.1 mg/dl Phosphorus Level 4.0 mg/dl Magnesium Level 1.8 mg/dl Beta-Hydroxybutyric Acid 1.47 mg/dL Bedside Glucose 174 mg/dl 117 mg/dl 85 mg/dl Test 12/10/16 11:03 12/10/16 11:30 12/10/16 11:59 12/10/16 12:03 Bedside Glucose 89 mg/dl 103 mg/dl 207 mg/dl Venous Blood pH 7.46 Sodium Level 141 mmol/L Potassium Level 4.2 mmol/L Chloride Level 104 mmol/L Carbon Dioxide Level 31 mmol/L Anion Gap 6.0 mmol/L Blood Urea Nitrogen 10 mg/dl Creatinine 0.90 mg/dl Est Creatinine Clear Calc Drug Dose 128.9 ml/min Estimated GFR () 133.3 Estimated GFR (Non- 115.0 BUN/Creatinine Ratio 11.6 Random Glucose 198 mg/dl Calcium Level 8.4 mg/dl Phosphorus Level 3.8 mg/dl Magnesium Level 2.0 mg/dl Beta-Hydroxybutyric Acid 1.70 mg/dL Test 12/10/16 13:04 12/10/16 14:56 12/10/16 16:04 12/10/16 16:16 Bedside Glucose 328 mg/dl 357 mg/dl 279 mg/dl Venous Blood pH 7.50 Sodium Level 138 mmol/L Potassium Level 3.8 mmol/L Chloride Level 102 mmol/L Carbon Dioxide Level 27 mmol/L Anion Gap 9.0 mmol/L Blood Urea Nitrogen 12 mg/dl Creatinine 0.78 mg/dl Est Creatinine Clear Calc Drug Dose 148.8 ml/min Estimated GFR () 141.4 Estimated GFR (Non- 122.0 BUN/Creatinine Ratio 14.7 Random Glucose 283 mg/dl Calcium Level 8.4 mg/dl Phosphorus Level 3.0 mg/dl Magnesium Level 1.9 mg/dl Date/Time Source Procedure Growth Status 12/10/16 00:00 Nasal MRSA DNA Surveillance Screen - Final Specimen Negative for MRSA by DNA Probe Complete Assessment & Plan DKA /TYPE 1 DM VERY POORLY CONTROLLED - patient had not been taking insulin intentionally - presented with DKA: elevated anion gap, elevated beta hydroxybutyrate, BSG > 900 - started on IV insulin gtt and IVF's - transition insulin gtt to sq - HbA1c > 13 - clinical nurse educator consulted - pharmacy consulted for glycemic management ACUTE KIDNEY INJURY - due to above - resolved DEPRESSION /SUICIDAL IDEATION - Psych consulted - plan for inpatient admission when medically stable TOBACCO ABUSE - nicotine patch - smoking cessation counseling DVT prophylaxis with heparin sq Consultants: Psychiatry Current Inpatient Medications: Current Inpatient Medications Medications (Trade) Dose Ordered Sig/Isac Route Start Time Stop Time Status Last Admin Dose Admin Miscellaneous Information (Consult Glycemic Management Pharmacy) 1 ea UD PRN N/A 12/09/16 23:00 01/08/17 22:59 Acetaminophen (Tylenol Tab) 650 mg Q4H PRN PO 12/09/16 23:15 01/08/17 23:14 Al Hydrox/Mg Hydrox/Simethicone (Maalox Max Susp) 15 ml Q4H PRN PO 12/09/16 23:15 01/08/17 23:14 Magnesium Hydroxide (Milk Of Magnesia Susp) 30 ml Q12H PRN PO 12/09/16 23:15 01/08/17 23:14 Ondansetron HCl (Zofran Inj) 4 mg Q6H PRN IV 12/09/16 23:15 01/08/17 23:14 Polyethylene 17 gm 17 gm DAILY PRN PO 12/09/16 23:15 01/08/17 23:14 Insulin Human Regular/Sodium Chloride (novoLIN-R/Nss 250ml) 252.5 ml @ 0 mls/hr DAILY@1130 IV 12/10/16 11:30 01/09/17 11:29 Glucose (Glucose 40% Gel) UD PRN PO 12/10/16 00:45 01/09/17 00:44 Glucose (Glucose Chew Tab) 1 tabs UD PRN PO 12/10/16 00:45 01/09/17 00:44 Dextrose (Dextrose 50% 50ML Syringe) 50 ml UD PRN IV 12/10/16 00:45 01/09/17 00:44 Glucagon 1 mg 1 mg UD PRN SQ 12/10/16 00:45 01/09/17 00:44 Potassium Chloride/Dextrose/ Sod Cl (D5W And 1/2nss + 20meq KCl) 1,000 ml @ 125 mls/hr Q8H IV 12/10/16 03:45 01/09/17 03:44 12/10/16 11:48 125 MLS/HR Insulin Glargine (Lantus Solostar Pen) SEE PROTOCOL BID SC 12/10/16 09:00 01/09/17 08:59 12/10/16 08:03 10 UNIT Pantoprazole Sodium (Protonix Tab) 40 mg QAM PO 12/10/16 09:00 01/09/17 08:59 12/10/16 08:05 40 MG Heparin Sodium (Porcine) (Heparin Sq 5000 Unit/0.5ml) 5,000 unit Q8 SQ 12/10/16 14:00 01/09/17 13:59 12/10/16 15:09 5,000 UNIT Insulin Aspart (novoLOG ASPART) SLIDING SCALE ACHS SC 12/10/16 11:00 01/09/17 10:59 12/10/16 16:10 4 UNITS Insulin Aspart (novoLOG ASPART) SLIDING SCALE 0000,0400 SC 12/11/16 00:00 01/10/17 00:00 Nicotine (Nicoderm Cq 21MG Patch) 1 patch QAM TD 12/10/16 17:00 01/09/17 16:59 Miscellaneous (Remove Nicoderm Patch) 1 ea HS N/A 12/10/16 21:00 01/09/17 20:59
[2016-12-10] MEDS: NICOTINE 21 MG/24 HR TDSY TD SCH (19:25)
[2016-12-10 20:33] LABS: BUN/CREATININE RATIO 16.6 (10-20); CALCIUM 8.3 mg/dl (8.5-10.1); CREATININE 0.73 mg/dl (0.60-1.40); MAGNESIUM 1.8 mg/dl (1.8-2.4); POTASSIUM 3.8 mmol/L (3.5-5.1)
[2016-12-10 20:34] LABS: PHOSPHORUS 3.1 mg/dl (2.5-4.9)
[2016-12-10 23:18] VITALS: BP_SYST 113; BP_SYST 117; BP_DIAS 76; BP_DIAS 77; PULSE 85; TEMP 36.7; O2SAT 96; O2SAT 98
[2016-12-11] MEDS: INSULIN ASPART 100 UNITS/ML 3 ML PEN SC SCH ×5 (00:27→17:34)
[2016-12-11] MEDS ORDERED: INSULIN REGULAR 5 UNITS in SYRINGE 0 ML IV SCH (05:00)
[2016-12-11] MEDS: HEPARIN SOD 5000 UNIT/0.5 ML CARP SQ SCH ×2 (05:55→13:40)
[2016-12-11 07:58] LABS: BUN/CREATININE RATIO 15.9 (10-20); CALCIUM 8.1 mg/dl (8.5-10.1); CREATININE 0.75 mg/dl (0.60-1.40); MAGNESIUM 1.9 mg/dl (1.8-2.4); POTASSIUM 3.4 mmol/L (3.5-5.1)
[2016-12-11 08:00] LABS: PHOSPHORUS 4.5 mg/dl (2.5-4.9)
[2016-12-11 08:08] VITALS: BP 125/82; PULSE 77; TEMP 36.4; O2SAT 99
[2016-12-11] MEDS: NICOTINE 21 MG/24 HR TDSY TD SCH (08:17)
[2016-12-11] MEDS: INSULIN GLARGINE SOLOSTAR 100 UNITS/ML 3 ML PEN SC SCH (08:17)
[2016-12-11 08:34] LABS: MEAN CELL VOLUME 86.8 fL (80-100); MEAN CORPUSCULAR HEMOGLOBIN 33.2 pg (25-34); MEAN CORPUSCULAR HGB CONC 38.3 g/dl (32-36); PLATELET COUNT 134 K/uL (130-400); RED BLOOD COUNT 4.61 M/uL (4.7-6.1); WHITE BLOOD COUNT 3.64 K/uL (4.8-10.8)
[2016-12-11] MEDS: PANTOprazole SOD 40 MG TAB PO SCH (08:49)
--- NOTE | 2016-12-11 10:07 | Pharmacy Progress Note ---
Glycemic Control: Progress Nt Date of Service Dec 11, 2016. Scope Glycemic Pharmacist consulted by Dr Abdi on 12/11/16 for glycemic control and to write orders per [facility] inpatient glycemic control protocol. Objective Accuchecks BSG (last 24hrs): Test 12/10/16 10:36 12/10/16 11:03 12/10/16 11:30 12/10/16 11:59 Bedside Glucose 85 mg/dl (70-99) 89 mg/dl (70-99) 103 mg/dl (70-99) 207 mg/dl (70-99) Test 12/10/16 12:03 12/10/16 13:04 12/10/16 14:56 12/10/16 16:04 Random Glucose 198 mg/dl (70-99) Bedside Glucose 328 mg/dl (70-99) 357 mg/dl (70-99) 279 mg/dl (70-99) Test 12/10/16 16:16 12/10/16 19:59 12/10/16 20:00 12/10/16 21:09 Random Glucose 283 mg/dl (70-99) 195 mg/dl (70-99) Bedside Glucose 192 mg/dl (70-99) 127 mg/dl (70-99) Test 12/11/16 00:16 12/11/16 04:51 12/11/16 06:49 12/11/16 07:49 Bedside Glucose 197 mg/dl (70-99) 371 mg/dl (70-99) 263 mg/dl (70-99) Random Glucose 294 mg/dl (70-99) Laboratory Data (last 24hrs) Test 12/10/16 12:03 12/10/16 16:16 12/10/16 19:59 12/11/16 06:49 Anion Gap 6.0 mmol/L 9.0 mmol/L 8.0 mmol/L 8.0 mmol/L BUN/Creatinine Ratio 11.6 14.7 16.6 15.9 Blood Urea Nitrogen 10 mg/dl 12 mg/dl 12 mg/dl 12 mg/dl Creatinine 0.90 mg/dl 0.78 mg/dl 0.73 mg/dl 0.75 mg/dl Potassium Level 4.2 mmol/L 3.8 mmol/L 3.8 mmol/L 3.4 mmol/L Sodium Level 141 mmol/L 138 mmol/L 141 mmol/L 141 mmol/L White Blood Count 3.64 K/uL HbA1c: Test 12/09/16 20:09 Hemoglobin A1c 13.1 % (4.5-5.6) H Recent Pertinent Medications Outpatient Anti-diabetic Regimen: * NovoLog * Lantus 15 units SQ BID Risk Factors for Insulin Resistance: * Diet: T2DM * Elevated A1c Assessment & Plan ASSESSMENT: * ADA & AACE recommend a goal blood sugar range 140-180 mg/dl for the majority of critically ill & non-critically ill patients. However, more stringent targets may be selected in individual cases. 12/10/16 * 31 y/o type I diabetic (x ~3 years) who also suffers from depression and anxiety. * Recently stopped taking insulins and eating poorly to induce diabetic coma. * A1c elevated * patient feels hypoglycemic when BSG 117mg/dL per RN * BSG on admit ~900mg/dL, anion gap open, BHA elevated * Insulin infusion began in ED * Currently, BSGs WNL and gap closed * Time to transition off of insulin and to SQ basal/bolus insulin - utilize both weight based dosing as well as home regimen for dose calculation 12/11/16 * Pt remains difficult to manage * During transition off of drip yesterday patient felt symptomatic at euglycemic BSGs * He then ate 2 trays for lunch which were not covered, and then insulin drip had to be turned back on * Overnight BSGs remained elevated and dextrose containing fluids were discontinued * At this point, I feel this patient's goal is to be <250 mg/dL * Fasting and Lunch BSG were the same, 263 mg/dL * Patient will receive increased doses of Lantus today and I will slightly tighten Novolog further * It will be important to not make adjustments too rapidly to avoid patient feeling hypoglycemic PLAN FOR INPATIENT GLYCEMIC CONTROL: * Continue Lantus SQ BID * 5 units if BSG is below 120mg/dL * 10 units if BSG is 120-160mg/dL * 15 units if BSG is above 160mg/dL * Tighten NovoLog AC and HS * Correction factor: 25 mg/dL/unit * Carb ratio: 1 unit per 9 g of CHO consumed * Goal range: 140-180mg/dL while in ICU and also for elevated A1c (lower BSG feels hypoglycemic) * A1c current * added to discharge instructions RECOMMENDATIONS FOR DISCHARGE: * awaited * Please note that the plan above was derived based on current level of insulin resistance and hospital stress. These recommendations are appropriate for inpatient admission only. Plan of care upon discharge will need to be reassessed to avoid potential outpatient hypo/hyperglycemia. Thank you.
[2016-12-11] MEDS ORDERED: NVLGIPEN SC (14:56)
[2016-12-11] MEDS ORDERED: NCDT21 TD (14:56)
--- NOTE | 2016-12-11 14:59 | Discharge Instructions ---
Discharge Instructions Date of Service Dec 11, 2016. Admission Reason for Admission: DKA Discharge Discharge Diagnosis / Problem: Diabetic ketoacidosis Discharge Goals Goal(s): Improve disease control Activity Recommendations Activity Level: Up Ad Sherron . Additional Information Patient informed of condition: Yes Advance Directives: No DNR: No Level of Care: Other (Inpatient mental health) Communicable Disease: No Prognosis: Improving Morrell Catheter: No Instructions / Follow-Up Instructions / Follow-Up Please follow up with Family Medicine Dr. Orellana within one week of discharge from the hospital. Patient's current goal glucose range is 150-250 given that his blood sugars have been uncontrolled for so long. Would recommend slowly improving glucose control with insulin titration over time as patient currently perceives "normal " glucoses as hypoglycemia. Current Hospital Diet Patient's current hospital diet: Diabetes Type 2 Diet Discharge Diet Recommended Diet: Diabetes Type 1 Diet Pending Studies Studies pending at discharge: no Laboratory Results Hemoglobin A1c Test 12/09/16 20:09 Range/Units Estimated Average Glucose 329 mg/dl Hemoglobin A1c 13.1 H 4.5-5.6 % Lipid Panel Test 12/10/16 04:27 Range/Units Triglycerides Level 373 H 0-150 mg/dl Cholesterol Level 167 0-200 mg/dl HDL Cholesterol 25 mg/dl Cholesterol/HDL Ratio 6.7 LDL Cholesterol, Calculated 67 mg/dl Medical Emergencies . Who to Call and When: Medical Emergencies: If at any time you feel your situation is an emergency, please call 911 immediately. . Non-Emergent Contact Non-Emergency issues call your: Primary Care Provider . . "Provider Documentation" section prepared by Donna Cohen. Core Measure Problem Core Measures: None
[2016-12-11 16:19] VITALS: BP 125/82; PULSE 77; TEMP 36.4; O2SAT 99
--- NOTE | 2016-12-11 18:43 | Discharge Summary ---
Discharge Summary Date of Service Dec 11, 2016. Discharge Summary Admission Date: Dec 09, 2016 at 22:58 Discharge Date: Dec 11, 2016 Discharge Disposition: Acute care mental health Principal Diagnosis: Type 1 DM with DKA Secondary Diagnoses/Problems: Depression Consultations: Psychiatry Medication Reconciliation New Medications: Insulin Aspart (Novolog Flexpen) 100 Units/Ml Inj 0 UNITS SC ACHS for 30 Days Goal 140 - 180 Correction Factor of 25 mg/dL/unit CHO ratio of 1 unit per 9 gm CHO Nicotine (Nicotine) 1 Patch Tdsy 1 PATCH TD QAM for 30 Days Continued Medications: Insulin Glargine (Lantus Solostar) 100 Unit/Ml Inj 15 UNITS SQ AMPM, PEN Discontinued Medications: Insulin Aspart (Novolog Flexpen) 100 Units/Ml Inj 1 DOSE SQ SLIDING SCALE Admission Information HPI (per Admitting provider): this is 31 yo M with hx of Type 1 DM diagnosed approx 3 yrs back on Lantus and NovoLog insulin -poorly controlled BSG ( A1C ~13 ) hx of depression and anxiety disorder, presented to ED with suicidal ideation - severe depression " life is not worth living any more " pt has been going through very stressful times -having financial crisis as he is responsible to pay for child support of 5 young children mentions his Pay check has been Zero , has been able to visit the kids also could not asked for custody rights as he can not afford to pay for the court visits He has been feeling very down in past 2 weeks, having crying spells, stopped taking his insulins , binging on sugary food and drinks -in order to get into Diabetic Coma has been having nausea /vomiting , blurred vision , increased thirst , increased urination , severe acid reflux symptoms in the ED BSG elevated > 900 , with increased anion gap , acute renal failure , metabolic acidosis pt given iV fluids bolus , started on insulin gtt during my interview pt mentions of feeling much better -abdominal pain , cramps , nausea , headache has improved feels very depressed and hopeless, crying says that he tried to asencio his depression for past 2 weeks , now can not get out of it , does not feel there is any thing in life worth living for pt denies of any drug overdose , alcohol binging Physical Exam (per Admitting): General Appearance: + moderate distress (depressed , very tearful ) Head: normocephalic, atraumatic Eyes: sclerae normal Neck: no JVD Respiratory/Chest: chest non-tender, lungs clear, normal breath sounds, no respiratory distress Cardiovascular: regular rate, rhythm Abdomen/GI: non tender, soft Extremities/Musculoskelatal: normal capillary refill, no pedal edema 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: alert, oriented x 3, + pertinent finding (depressed ) Skin: normal color, warm/dry, no rash Hospital Course Patient has a h/o poorly controlled type 1 DM and presented in DKA due to medication noncompliance. Patient was started on IVF's and insulin drip. This was transitioned to sq insulin. A1c was >13. educator senior clinical was consulted. For the time being, current glucose goal is 150-250 as patient symptomatically cannot tolerate lower glucoses. Over time glucose goal can be tightened. Patient had JESSIE on admission, due to DKA, that resolved with IVF's. Psychiatry was consulted for depression, suicidal ideation and planned for inpatient admission. Patient was given a nicotine patch and counseled on smoking cessation. Patient deemed medically stable for discharge to inpatient mental health. PE on discharge: General- awake; alert; NAD Eyes- EOMI; no scleral icterus Neck- no stridor; trachea midline Lungs- CTA bilaterally; no wheezes/crackles Heart- RRR; no m/r/g Abdomen- soft; NTND; nBS Back- no gross abnormalities Extremities- no c/c/e; no deformity Neuro- no focal deficits Skin- no appreciable rash or bruise . Total time spent on discharge = This includes examination of the patient, discharge planning, medication reconciliation, and communication with other providers. Discharge Instructions Discharge Instructions Date of Service Dec 11, 2016. Admission Reason for Admission: DKA Discharge Discharge Diagnosis / Problem: Diabetic ketoacidosis Discharge Goals Goal(s): Improve disease control Activity Recommendations Activity Level: Up Ad Sherron . Additional Information Patient informed of condition: Yes Advance Directives: No DNR: No Level of Care: Other (Inpatient mental health) Communicable Disease: No Prognosis: Improving Morrell Catheter: No Instructions / Follow-Up Instructions / Follow-Up Please follow up with Family Medicine Dr. Orellana within one week of discharge from the hospital. Patient's current goal glucose range is 150-250 given that his blood sugars have been uncontrolled for so long. Would recommend slowly improving glucose control with insulin titration over time as patient currently perceives "normal " glucoses as hypoglycemia. Current Hospital Diet Patient's current hospital diet: Diabetes Type 2 Diet Discharge Diet Recommended Diet: Diabetes Type 1 Diet Pending Studies Studies pending at discharge: no Laboratory Results Hemoglobin A1c Test 12/09/16 20:09 Range/Units Estimated Average Glucose 329 mg/dl Hemoglobin A1c 13.1 H 4.5-5.6 % Lipid Panel Test 12/10/16 04:27 Range/Units Triglycerides Level 373 H 0-150 mg/dl Cholesterol Level 167 0-200 mg/dl HDL Cholesterol 25 mg/dl Cholesterol/HDL Ratio 6.7 LDL Cholesterol, Calculated 67 mg/dl Medical Emergencies . Who to Call and When: Medical Emergencies: If at any time you feel your situation is an emergency, please call 911 immediately. . Non-Emergent Contact Non-Emergency issues call your: Primary Care Provider . . "Provider Documentation" section prepared by Donna Cohen. Core Measure Problem Core Measures: None Additional Copies To Kylah Orellana D.O.
[2017-04-02] MEDS ORDERED: INSDGIPEN SQ (11:38)
[2017-04-04] MEDS ORDERED: NICO21DI4 EXT (13:06)
[2017-04-04] MEDS ORDERED: NVLGI7030 SC (13:06)
== END 2016-12-11 17:40 | DRG 638 ==
LOC: ENRESERVTM → ENRESERVDT → C.EDB 20:34 → C.MSICU 22:58 → C.MS4W 12-10 19:06
PROVIDERS: ADMIT Hospitalist; ATTEND Internal Medicine
DX: E10.10 Type 1 diabetes mellitus with ketoacidosis without coma (principal); N17.9 Acute kidney failure, unspecified; F33.9 Major depressive disorder, recurrent, unspecified; R45.851 Suicidal ideations; E10.65 Type 1 diabetes mellitus with hyperglycemia; Z91.120 Patient's intentional underdosing of medication regimen due to financial hardship; F17.200 Nicotine dependence, unspecified, uncomplicated; Z83.3 Family history of diabetes mellitus; Z82.49 Family history of ischemic heart disease and other diseases of the circulatory system; Z84.1 Family history of disorders of kidney and ureter; Z82.0 Family history of epilepsy and other diseases of the nervous system

== ENCOUNTER 2017-04-02 15:06 | Inpatient (IN) | payer OTHER ==
[~2017-04-02] VITALS: Ht 180.3 cm; Wt 76.1 kg
[~2017-04-02 15:06] MED LIST changes: +INSDGIPEN SQ; +NCDT21 TD; -NVLGI/PEN SQ; +NVLGIPEN SC
[2017-04-02] MEDS ORDERED: ONDANSETRON INJ 2 MG/ML 2 ML VIAL IV STA (15:34)
[2017-04-02] MEDS ORDERED: SODIUM CHLORIDE 0.9% 1000ML 2,000 ML IV STA (15:34)
[2017-04-02 15:49] LABS: URINE APPEARANCE CLEAR (CLEAR); URINE BILIRUBIN NEG (NEG); URINE COLOR YELLOW; URINE NITRITE NEG (NEG); URINE SPECIFIC GRAVITY 1.035 (1.000-1.030); UROBILINOGEN NEG (NEG)
[2017-04-02 15:52] LABS: MANUAL MICROSCOPIC REQUIRED? NO; REVIEW REQ? NO
[2017-04-02 15:58] LABS: VEN BLOOD GAS BASE EXCESS -14.6 mmol/L
--- NOTE | 2017-04-02 16:01 | EMERGENCY ROOM VISIT NOTE ---
History Report prepared by Jennifer: Reina Nugent Under the Supervision of: Dr. Rufino Raymundo D.O. First contact with patient: 15:29 Chief Complaint: HYPERGLYCEMIA Stated Complaint: DIABETIC,HIGH BSG History of Present Illness The patient is a 31 year old male who presents to the Emergency Room with complaints of persistent hyperglycemia starting 2 weeks ago. The patient was diagnosed with diabetes 2 years ago. He has not had access to any insulin for the past 2 weeks as he waits for his insurance paperwork to be processed. His blood sugar today was in the 290s. He has been drinking a lot of water to try and flush his system. He reports some fever, chills, and nausea. He is feeling run down. He denies any vomiting. He does not have any other medical problems or previous surgeries. He admits to tobacco use. He denies any alcohol use. Source of History: patient Onset: 2 weeks ago Position: other (global) Symptom Intensity: blood sugar 290s Quality: other (hyperglycemia) Timing: other (persistent) Associated Symptoms: + fevers, + chills, + nausea, No vomiting Review of Systems See HPI for pertinent positives & negatives. A total of 10 systems reviewed and were otherwise negative. Past Medical & Surgical Medical Problems: (1) Dental Disorder Nos (2) Diabetes (3) Hypertension (4) Major depressive disorder, recurrent episode (5) Male Genital Dis Nos (6) Rectal & Anal Hemorrhage Family History Cancer Diabetes mellitus Heart disease Hypertension Kidney disease Kidney stones Seizures Social History Smoking Status: Current Every Day Smoker Drug Use: marijuana Marital Status: single Housing Status: lives with family Occupation Status: employed Current/Historical Medications Scheduled Insulin Aspart (Novolog Flexpen), 1 DOSE SC UD Insulin Glargine (Lantus Solostar), 15 UNITS SQ AMPM Allergies Coded Allergies: Codeine (Verified Adverse Reaction, Intermediate, BECOMES VERY AGGRESSIVE , 12/09/16) Physical Exam Vital Signs Date Time Temp Pulse Resp B/P (MAP) Pulse Ox O2 Delivery O2 Flow Rate FiO2 04/02/17 15:18 36.4 87 18 123/72 99 Room Air Physical Exam GENERAL: Patient is awake, alert, and in no acute distress. Patient is resting comfortably and showing no signs of anxiety EYES: The conjunctivae are clear. The pupils are round and reactive. EARS, NOSE, MOUTH AND THROAT: The nose is without any evidence of any deformity. Mucous membranes are moist tongue is midline NECK: The neck is nontender and supple. RESPIRATORY: Normal respiratory effort is noted there is no evidence of wheezing rhonchi or rales CARDIOVASCULAR: Tachycardic rate and regular rhythm noted there no murmurs rubs or gallops normal S1 normal S2 GASTROINTESTINAL: The abdomen is soft. Bowel sounds are present in all quadrants. Abdomen is nontender MUSCULOSKELETAL/EXTREMITIES: There is no evidence of gross deformity full range of motion is noted in the hips and shoulders SKIN: There is no obvious evidence of any rash. There are no petechiae, pallor or cyanosis noted. NEUROLOGIC: Patient is awake alert and oriented x3 strength is symmetric patellar reflexes are 2+ bilaterally Medical Decision & Procedures ER Provider Diagnostic Interpretation: X-ray results as stated below per interpretation by me and the radiologist. CHEST ONE VIEW PORTABLE CLINICAL HISTORY: ABDOMINAL PAIN/GI COMPARISON STUDY: Chest radiograph December 09, 2016. FINDINGS: Lung volumes are normal. No pneumothorax or pleural effusion is present. Cardiac size is normal. Mediastinal contours are normal. There is no evidence of pulmonary edema. IMPRESSION: No acute cardiopulmonary findings. Electronically signed by: Luiz Davey M.D. 04/02/2017 5:02 PM Dictated Date/Time: 04/02/2017 5:02 PM Laboratory Results 04/02/17 15:33 Red Blood Count 5.53, Mean Corpuscular Volume 91.0, Mean Corpuscular Hemoglobin 34.0, Mean Corpuscular Hemoglobin Concent 37.4, Neutrophils (%) (Auto) 66.3, Lymphocytes (%) (Auto) 21.2, Monocytes (%) (Auto) 8.6, Eosinophils (%) (Auto) 3.6, Basophils (%) (Auto) 0.0, Neutrophils # (Auto) 3.91, Lymphocytes # (Auto) 1.25, Monocytes # (Auto) 0.51, Eosinophils # (Auto) 0.21, Basophils # (Auto) 0.00 04/02/17 15:33 Test 04/02/17 15:33 04/02/17 15:35 04/02/17 15:41 White Blood Count 5.90 K/uL (4.8-10.8) Red Blood Count 5.53 M/uL (4.7-6.1) Hemoglobin 18.8 g/dL (14.0-18.0) Hematocrit 50.3 % (42-52) Mean Corpuscular Volume 91.0 fL (80-100) Mean Corpuscular Hemoglobin 34.0 pg (25-34) Mean Corpuscular Hemoglobin Concent 37.4 g/dl (32-36) Platelet Count 203 K/uL (130-400) Neutrophils (%) (Auto) 66.3 % Lymphocytes (%) (Auto) 21.2 % Monocytes (%) (Auto) 8.6 % Eosinophils (%) (Auto) 3.6 % Basophils (%) (Auto) 0.0 % Neutrophils # (Auto) 3.91 K/uL (1.4-6.5) Lymphocytes # (Auto) 1.25 K/uL (1.2-3.4) Monocytes # (Auto) 0.51 K/uL (0.11-0.59) Eosinophils # (Auto) 0.21 K/uL (0-0.5) Basophils # (Auto) 0.00 K/uL (0-0.2) Immature Granulocyte % (Auto) 0.3 % Immature Granulocyte # (Auto) 0.02 K/uL (0.00-0.02) Prothrombin Time 9.7 SECONDS (9.0-12.0) Prothromb Time International Ratio 0.9 (0.9-1.1) Anion Gap 18.0 mmol/L (3-11) Estimated GFR () 94.1 Estimated GFR (Non- 81.2 BUN/Creatinine Ratio 11.5 (10-20) Calcium Level 8.5 mg/dl (8.5-10.1) Total Bilirubin 1.0 mg/dl (0.2-1) Direct Bilirubin 0.2 mg/dl (0-0.2) Aspartate Amino Transf (AST/SGOT) 14 U/L (15-37) Alanine Aminotransferase (ALT/SGPT) 35 U/L (12-78) Alkaline Phosphatase 135 U/L (45-117) Total Protein 7.5 gm/dl (6.4-8.2) Albumin 4.2 gm/dl (3.4-5.0) Lipase 97 U/L (73-393) Beta-Hydroxybutyric Acid 101.50 mg/dL (0.2-2.81) Urine Color YELLOW Urine Appearance CLEAR (CLEAR) Urine pH 5.0 (4.5-7.5) Urine Specific [place] 1.035 (1.000-1.030) Urine Protein 1+ (NEG) Urine Glucose (UA) 3+ (NEG) Urine Ketones 4+ (NEG) Urine Occult Blood NEG (NEG) Urine Nitrite NEG (NEG) Urine Bilirubin NEG (NEG) Urine Urobilinogen NEG (NEG) Urine Leukocyte Esterase NEG (NEG) Urine WBC (Auto) 1-5 /hpf (0-5) Urine RBC (Auto) 0-4 /hpf (0-4) Urine Hyaline Casts (Auto) 1-5 /lpf (0-5) Urine Epithelial Cells (Auto) 5-10 /lpf (0-5) Urine Bacteria (Auto) NEG (NEG) Venous Blood pH 7.25 (7.36-7.41) Venous Blood Partial Pressure CO2 25 mmHg (38.0-50.0) Venous Blood Partial Pressure O2 80 mmHg Venous Blood HCO3 11 mmol/L Venous Blood Oxygen Saturation 95.0 % Venous Blood Base Excess -14.6 mmol/L Laboratory results per my review. Medications Administered Medications (Trade) Dose Ordered Sig/Isac Route Start Time Stop Time Status Last Admin Dose Admin Ondansetron HCl (Zofran Inj) 4 mg NOW STAT IV 04/02/17 15:34 04/02/17 15:35 DC 04/02/17 16:03 4 MG Sodium Chloride 2,000 ml @ 999 mls/hr Q2H1M STAT IV 04/02/17 15:34 04/02/17 17:34 DC 04/02/17 16:03 999 MLS/HR ED Course 1531: The patient was evaluated in room C2B. A complete history and physical examination were performed. 1534: NSS 2000 ml @ 999 mls/hr IV, Zofran Inj 4 mg IV. 1606: Upon reevaluation, the patient is resting comfortably. I discussed results and treatment plan with him. He verbalizes agreement and understanding. The patient will be evaluated for further management and care. 1609: I discussed the patient's case with Dr. Espinosa, [facility] hospitalist. The patient will be evaluated for further management. Medical Decision Prior records/ancillary studies reviewed and summarized above. Nursing notes reviewed. The patient's history was concerning for weakness. Differential diagnosis: Etiologies such as metabolic, infection, hypo/hyperglycemia, electrolyte abnormalities, cardiac sources, intracerebral event, toxicologic, neurologic, as well as others were entertained. The patient is a 31-year-old male who presented to the emergency department for an evaluation of elevated blood sugar. The patient has not been compliant with his insulin over the last 2 weeks because of concerns insurance issues. The patient has been trying to increase his fluid intake but appears to have laboratory values consistent with DKA. The patient was treated with IV fluids in the emergency department. I discussed the patient's laboratory and radiographic studies with him. I discussed his case with the on-call [facility] hospitalist. They've agreed to evaluate the patient in the emergency department for further management and disposition. Medication Reconcilliation Current Medication List: was personally reviewed by me Blood Pressure Screening Patient's blood pressure: Normal blood pressure Blood pressure disposition: Did not require urgent referral Consults Time Called: 1607 Consulting Physician: Dr. Espinosa, [facility]ist Returned Call: 1609 I discussed the patient's case with him. The patient will be evaluated for further management. Impression Primary Impression: DKA (diabetic ketoacidoses) Additional Impression: Noncompliance with medications Scribe Attestation The scribe's documentation has been prepared under my direction and personally reviewed by me in its entirety. I confirm that the note above accurately reflects all work, treatment, procedures, and medical decision making performed by me. Departure Information Dispostion Being Evaluated By Hospitalist Referrals Kylah Orellana D.O. (PCP) Patient Instructions My [facility] Problem Qualifiers Primary Impression: DKA (diabetic ketoacidoses) Diabetes mellitus type: type 1 Diabetes mellitus complication detail: without coma Qualified Codes: E10.10 - Type 1 diabetes mellitus with ketoacidosis without coma
[2017-04-02] MEDS ORDERED: NVLGI/PEN SC (16:03)
[2017-04-02 16:05] LABS: ALT/SGPT 35 U/L (12-78); AST/SGOT 14 U/L (15-37); BLOOD UREA NITROGEN 14 mg/dl (7-18); BUN/CREATININE RATIO 11.5 (10-20); CALCIUM 8.5 mg/dl (8.5-10.1); CARBON DIOXIDE 14 mmol/L (21-32); CHLORIDE 102 mmol/L (98-107); GLUCOSE 291 mg/dl (70-99); POTASSIUM 4.4 mmol/L (3.5-5.1); SODIUM 134 mmol/L (136-145)
[2017-04-02 16:07] LABS: ALKALINE PHOSPHATASE 135 U/L (45-117)
[2017-04-02 16:14] LABS: HEMATOCRIT 50.3 % (42-52); MEAN CORPUSCULAR HGB CONC 37.4 g/dl (32-36); PLATELET COUNT 203 K/uL (130-400); RED BLOOD COUNT 5.53 M/uL (4.7-6.1)
[2017-04-02 16:16] LABS: COMPLETE YES; EOS % 3.6 %; IG% 0.3 %; LYMPH % 21.2 %; LYMPH ABS # 1.25 K/uL (1.2-3.4); MONO % 8.6 %; NEUT % 66.3 %
[2017-04-02] MEDS ORDERED: PHARMACY GLYCEMIC MGMT CONSULT SCH (16:33)
[2017-04-02] MEDS ORDERED: INSULIN IV INFUSION PROTOCOL STA ×2 (16:36→16:41)
[2017-04-02] MEDS ORDERED: ACETAMINOPHEN 325 MG TAB PO PRN (16:45)
[2017-04-02] MEDS ORDERED: ONDANSETRON INJ 2 MG/ML 2 ML VIAL IV PRN (16:45)
[2017-04-02] MEDS ORDERED: MODERATE STRESS LEVEL ONE (16:45)
[2017-04-02] MEDS ORDERED: INSULIN PROTOCOL GOAL RANGE ONE (16:45)
[2017-04-02] MEDS ORDERED: PANTOprazole SOD 40 MG TAB PO ONE (16:51)
--- NOTE | 2017-04-02 17:03 | DIAGNOSTIC IMAGING REPORT ---
CHEST ONE VIEW PORTABLE CLINICAL HISTORY: ABDOMINAL PAIN/GI COMPARISON STUDY: Chest radiograph December 09, 2016. FINDINGS: Lung volumes are normal. No pneumothorax or pleural effusion is present. Cardiac size is normal. Mediastinal contours are normal. There is no evidence of pulmonary edema. IMPRESSION: No acute cardiopulmonary findings. Electronically signed by: Luiz Davey M.D. 04/02/2017 5:02 PM Dictated Date/Time: 04/02/2017 5:02 PM
[2017-04-02] MEDS ORDERED: INSULIN HUMAN REGULAR IV BOLUS 2 UNIT in SYRINGE 0 ML IV STA (17:22)
[2017-04-02] MEDS ORDERED: GLUCAGON FOR INJ 1 MG VIAL SQ PRN (17:30)
[2017-04-02] MEDS ORDERED: GLUCOSE 40% GEL 15 GM TUBE PO PRN (17:30)
[2017-04-02] MEDS ORDERED: DEXTROSE 50% 50 ML SYR IV PRN (17:30)
[2017-04-02] MEDS ORDERED: GLUCOSE 10 TABS/TUBE PO PRN (17:30)
[2017-04-02 17:41] LABS: INR 0.9 (0.9-1.1); PROTHROMBIN TIME (PATIENT) 9.7 SECONDS (9.0-12.0)
[2017-04-02] MEDS: INSULIN REGULAR 250 UNITS in SODIUM CHLORIDE 0.9% 250ML 250 ML IV SCH (17:55)
[2017-04-02] MEDS: INSULIN ASPART 100 UNITS/ML 3 ML PEN SC SCH ×2 (18:10→21:00)
--- NOTE | 2017-04-02 18:19 | HISTORY & PHYSICAL EXAMINATION ---
DATE OF ADMISSION: 04/02/2017 PRIMARY CARE PHYSICIAN: CHIEF COMPLAINT: Nausea and vomiting, polyuria, polydipsia for the last few days. HISTORY OF PRESENT COMPLAINT: He is 31-year-old male with significant past medical history of insulin-dependent diabetes, apparently ran out his insurance for the last 2 weeks and he has not been using his insulin for the last 2 weeks. He did not call his primary care doctor's office for these. He has been complaining of weakness, tiredness, polyuria, polydipsia, for the last few days and today he could not take it anymore. He did have some chills but no documented fever, nausea but no vomiting and no problem with his bowel habit. He did not have any numbness and/or tingling in the extremities, but he was so weak that he was feeling almost passing out at home. No chest pain, shortness of breath, palpitations. No cough or phlegm. In the ER, he was hemodynamically stable without fever and/or tachycardia or hypotension and his blood sugar noted to be 290 with a low bicarbonate of 14 and pH of 7.2. From that point, he was admitted to telemetry unit for continuation of care. PAST MEDICAL HISTORY: Significant for insulin-dependent diabetes. PAST SURGICAL HISTORY: Nothing significant. FAMILY HISTORY: Significant that maternal side does have diabetes. SOCIAL HISTORY: He is single. He has 5 children. He smokes about half a pack per day for the last many years. He does not drink and he has a fulltime work. ALLERGIES: CODEINE. MEDICATIONS: As per the Epic note, he has been on Tylenol 2 tablets 650 mg every 4 hours as needed, ibuprofen 600 mg every 6 hours as needed, insulin Lantus 15 units every night at bedtime and in the morning and NovoLog FlexPen 5 units 3 times daily. REVIEW OF SYSTEMS: Other systemic unremarkable except those are mentioned in H&P. PHYSICAL EXAMINATION: GENERAL: On examination in the Emergency Room, he was not having any acute distress. He was feeling thirsty and generally weak, in no apparent distress. VITAL SIGNS: Temperature 36.4, pulse was 87, blood pressure 132/72, saturation 99% on room air. HEENT: Unremarkable. NECK: Supple. No JVD, no bruit. CHEST: Clear to auscultation bilaterally. HEART: S1, S2 regular. ABDOMEN: Soft, benign, nontender, no organomegaly. Bowel sounds present. EXTREMITIES: Negative for any edema. MUSCULOSKELETAL: Did not show any acute arthritis involving any joint. CENTRAL NERVOUS SYSTEM: He is alert, awake, oriented x3. No focal sensory and/or motor deficit appreciated. LABORATORY DATA: Noted today white count was 5.90, H&H 18.8/50.3, platelets was 203; normal differential. Chemistry: Sodium 134, potassium 4.4, chloride 102, carbon dioxide 14, anion gap 18, BUN 14 and creatinine 1.2. LFTs unremarkable. Blood glucose 290 and beta hydroxybutyric acid was 101.50. UA examination - ketones 4+. IMAGING DATA: EKG pending. Chest x-ray unremarkable. Venous blood gas - pH 7.25, pCO2 25 and pO2 80. IMPRESSION AND PLAN: 1. Diabetic ketoacidosis. We will admit the patient to telemetry unit. He is not having any infective cause for diabetic ketoacidosis. He ran out his insulin and has not been taking for the last 2 weeks. Will start with intravenous insulin and give adequate fluid with an electrolyte replacement. We will check his PRP, magnesium and phosphate every 4 hours and go from there. I will restart his usual insulin from tomorrow. 2. Gastrointestinal prophylaxis with Protonix. 3. Deep venous thrombosis prophylaxis with subcutaneous heparin. 4. Code status: He will be a full code. In my clinical judgment, the beneficiary meets criteria as per CMS for 2-midnight stay in the hospital. Of note, his hemoglobin A1c noted in the Epic chart was 12.3, as of July of last year. RENEE
[2017-04-02 18:31] VITALS: BP 115/70; PULSE 85; TEMP 36.5; O2SAT 100; BMI 22.6
[2017-04-02] MEDS ORDERED: INSULIN ASPART 100 UNITS/ML 3 ML PEN SC SCH (19:00)
[2017-04-02 19:12] VITALS: BP 112/66; PULSE 79; TEMP 36.4; O2SAT 100
[2017-04-02] MEDS: NSS + 20MEQ KCL 1000ML 1,000 ML IV SCH (19:26)
--- NOTE | 2017-04-02 19:29 | Pharmacy Progress Note ---
Glycemic Control Intl Consult Date of Service Apr 02, 2017. Scope Glycemic Pharmacist consulted by Dr Espinosa on 04/02/17 for glycemic control and to write orders per [facility] inpatient glycemic control protocol Objective Weight (Kilograms): 73.500 Accuchecks BSG (last 24hrs): Test 04/02/17 15:24 04/02/17 15:33 04/02/17 17:09 04/02/17 18:19 Bedside Glucose 290 mg/dl (70-99) 267 mg/dl (70-99) 236 mg/dl (70-99) Random Glucose 291 mg/dl (70-99) Laboratory Data (last 24hrs) Test 04/02/17 15:33 Anion Gap 18.0 mmol/L BUN/Creatinine Ratio 11.5 Blood Urea Nitrogen 14 mg/dl Creatinine 1.20 mg/dl Potassium Level 4.4 mmol/L Sodium Level 134 mmol/L White Blood Count 5.90 K/uL Red Blood Count 5.53 M/uL Hemoglobin 18.8 g/dL Hematocrit 50.3 % Mean Corpuscular Volume 91.0 fL Mean Corpuscular Hemoglobin 34.0 pg Mean Corpuscular Hemoglobin Concent 37.4 g/dl Platelet Count 203 K/uL Neutrophils (%) (Auto) 66.3 % Lymphocytes (%) (Auto) 21.2 % Monocytes (%) (Auto) 8.6 % Eosinophils (%) (Auto) 3.6 % Basophils (%) (Auto) 0.0 % Neutrophils # (Auto) 3.91 K/uL Lymphocytes # (Auto) 1.25 K/uL Monocytes # (Auto) 0.51 K/uL Eosinophils # (Auto) 0.21 K/uL Basophils # (Auto) 0.00 K/uL HbA1c 13.1% 12/09/16 Recent Pertinent Medications Outpatient Anti-diabetic Regimen: * Lantus 15 units SQ BID * Novolog TID w/ meals * A1c = 13.1 % 12/09/16 Risk Factors for Insulin Resistance: * Diet: ordered Clear Liquid diet Assessment & Plan ASSESSMENT: 04/02/17 * Type 1 diabetic known to the Glycemic Service from prior admissions for DKA * He is admitted today with DKA secondary to losing insurance coverage and not taking his insulin therapy for ~ 2 weeks * Labs on admit: Glu 291, AG 18, Bicarb 14, BOHB 101.5, pH 7.25 * Discussed case w/ Hospitalist, the plan is to begin IV insulin drip per protocol: moderate stress, goal BSG 140 - 220mg/dL * Plan is to continue the insulin drip until ketoacidosis resolves and patient able to tolerate a diet * Will begin a reduced dose of Lantus this evening to allow for a smoother transition to SQ regimen when appropriate. This will be given with the insulin drip. DO NOT DISCONTINUE THE INSULIN DRIP UNTIL INSTRUCTED TO DO SO BY PHARMACY CONSULT PLEASE. * Of note, this patient has been difficult to control on prior admissions due to c/o hypoglycemic symptoms despite having BSGs in the non-hypoglycemic range. Will likely try to maintain BSGs in upper 100's. Will check A1c with next lab draw to determine where his BSGs typically reside. * If BSGs drop below 140 and insulin drip is on hold for > 1 hour, will likely need to add dextrose to maintenance IVFs to allow for continued insulin administration until ketoacidosis resolves. PLAN FOR INPATIENT GLYCEMIC CONTROL: * Starting IV insulin infusion per moderate stress protocol * Goal Range 140 - 220 mg/dl * Basal insulin with LANTUS 7 units SQ BID (continue this reduced dose with the insulin drip) * Prandial Insulin with NOVOLOG * Nutritional / Prandial insulin per carb ratio of 1 unit per 9 grams CHO consumed * Add dextrose to maintenance IVFs if insulin calculator instructs RN to hold insulin drip for more than 1 hr and ketoacidosis is not yet resolved * Please note that the plan above was derived based on current level of insulin resistance and hospital stress. These recommendations are appropriate for inpatient admission only. Plan of care upon discharge will need to be reassessed to avoid potential outpatient hypo/hyperglycemia. Thank you.
[2017-04-02 20:45] LABS: BUN/CREATININE RATIO 11.1 (10-20); CALCIUM 7.6 mg/dl (8.5-10.1); POTASSIUM 3.9 mmol/L (3.5-5.1)
[2017-04-02] MEDS: INSULIN GLARGINE SOLOSTAR 100 UNITS/ML 3 ML PEN SC SCH (21:00)
[2017-04-02] MEDS: HEPARIN SOD 5000 UNIT/0.5 ML CARP SQ SCH (22:00)
[2017-04-02 23:33] VITALS: BP 114/69; PULSE 74; TEMP 36.5; O2SAT 99
[2017-04-03 00:26] LABS: BUN/CREATININE RATIO 10.1 (10-20); CALCIUM 7.6 mg/dl (8.5-10.1); POTASSIUM 3.7 mmol/L (3.5-5.1)
[2017-04-03] MEDS: NSS + 20MEQ KCL 1000ML 1,000 ML IV SCH (01:10)
[2017-04-03 02:51] VITALS: BP 103/63; PULSE 71; TEMP 36.9; O2SAT 98
[2017-04-03] MEDS ORDERED: D5W AND 1/2NSS + 40MEQ KCL 1,000 ML IV SCH (03:45)
[2017-04-03 04:40] LABS: BUN/CREATININE RATIO 8.9 (10-20); CALCIUM 7.7 mg/dl (8.5-10.1); POTASSIUM 3.7 mmol/L (3.5-5.1)
[2017-04-03] MEDS: HEPARIN SOD 5000 UNIT/0.5 ML CARP SQ SCH ×3 (05:45→20:28)
[2017-04-03 06:34] LABS: BUN/CREATININE RATIO 9.5 (10-20); CREATININE 0.91 mg/dl (0.60-1.40); POTASSIUM 3.7 mmol/L (3.5-5.1)
[2017-04-03 07:39] VITALS: BP 116/79; PULSE 78; TEMP 36.7; O2SAT 99
[2017-04-03] MEDS: INSULIN REGULAR 250 UNITS in SODIUM CHLORIDE 0.9% 250ML 250 ML IV SCH ×4 (08:20→13:17)
[2017-04-03] MEDS: INSULIN GLARGINE SOLOSTAR 100 UNITS/ML 3 ML PEN SC SCH ×2 (08:58→20:45)
--- NOTE | 2017-04-03 08:58 | Pharmacy Progress Note ---
Glycemic Control Progress Note Date of Service Apr 03, 2017. Scope Glycemic Pharmacist consulted for glycemic control to write orders per [facility] inpatient glycemic control protocol. Objective Accuchecks BSG (last 24hrs): Test 04/02/17 15:24 04/02/17 15:33 04/02/17 17:09 04/02/17 18:19 Bedside Glucose 290 mg/dl (70-99) 267 mg/dl (70-99) 236 mg/dl (70-99) Random Glucose 291 mg/dl (70-99) Test 04/02/17 19:16 04/02/17 20:10 04/02/17 20:16 04/02/17 21:16 Bedside Glucose 249 mg/dl (70-99) 215 mg/dl (70-99) 190 mg/dl (70-99) Random Glucose 205 mg/dl (70-99) Test 04/02/17 22:20 04/02/17 23:41 04/03/17 00:18 04/03/17 02:22 Bedside Glucose 167 mg/dl (70-99) 155 mg/dl (70-99) 100 mg/dl (70-99) Random Glucose 142 mg/dl (70-99) Test 04/03/17 03:40 04/03/17 04:00 04/03/17 04:02 04/03/17 05:21 Bedside Glucose 87 mg/dl (70-99) 140 mg/dl (70-99) 150 mg/dl (70-99) Random Glucose 132 mg/dl (70-99) Test 04/03/17 05:47 04/03/17 06:29 04/03/17 08:19 Random Glucose 141 mg/dl (70-99) Bedside Glucose 157 mg/dl (70-99) 296 mg/dl (70-99) HbA1c: Test 04/03/17 04:00 Recent Pertinent Medications The patient is currently receiving: * Insulin drip per moderate stress protocol * Basal insulin: Lantus 7 units every 12 hours * Correctional Insulin: Novolog Correction per scale ACHS Goal Range: Low 140 mg/dL - High 220 mg/dL * Prandial insulin: Per carb ratio of 1 unit per 9 grams CHO consumed Outpatient Anti-Diabetic Meds Basal Insulin Bolus Insulin Assessment & Plan ASSESSMENT: * See progress note from 04/03/17 for more background info, in short: * 31 yo T1DM M known to pharmacy from prior admissions, in DKA admitted overnight due to loss of insurance coverage/not taking home insulin for ~2 weeks. * Pt receiving IV insulin drip + low dose SQ Lantus BID to aid in smoother transition * Labs look appropriate for transition to SQ insulin this AM and MD agrees: pt no longer with N/V, tolerating diet and looking to go home tomorrow * Plan to transition starting at 1000 today * D/C dextrose containing fluids * D/C insulin drip in 6 hours * Give additional dose of Lantus to = 15 units and continue dosing BID tonight * If BSGs do not respond appropriately, consider increasing to Lantus 18 units BID * Additional overnight checks given Type 1 diabetes and transition from drip PLAN FOR INPATIENT GLYCEMIC CONTROL: * Continue insulin drip per moderate stress protocol until ~1600 today * Goal Range 140 - 220 mg/dl * Basal insulin: Increase * Lantus 15 units BID * Consider 18 units BID if necessary * Bolus insulin * NovoLog per scale ACHS + 00,04 * Goal Range: Low 140 mg/dL - High 180 mg/dL * Correction Factor: 25 mg/dL/unit * Nutritional / Prandial insulin per carb ratio of 1 unit per 9 grams CHO consumed * If BSGs do not respond to regimen, consider CF20 and CR8 * Please note that the plan above was derived based on current level of insulin resistance and hospital stress. These recommendations are appropriate for inpatient admission only. Plan of care upon discharge will need to be reassessed to avoid potential outpatient hypo/hyperglycemia. Thank you.
[2017-04-03] MEDS: INSULIN ASPART 100 UNITS/ML 3 ML PEN SC SCH ×4 (09:37→20:44)
[2017-04-03] MEDS: PANTOprazole SOD 40 MG TAB PO SCH (09:37)
[2017-04-03] MEDS ORDERED: INSULIN GLARGINE SOLOSTAR 100 UNITS/ML 3 ML PEN SC ONE (10:15)
--- NOTE | 2017-04-03 10:29 | Progress Note ---
Internal Med Progress Note Date of Service: Apr 03, 2017. Provider Documentation: SUBJECTIVE: The patient was seen and examined Much improved Denies any Nausea,vomiting,No palpitation,sob Weakness is better and asking for solid food OBJECTIVE: Vital Signs-as noted below Exam: General-No distress at rest Eyes-Normal ENT-normal Neck-supple Lungs-clear to ausucltate bilaterally Heart-Regular,no murmur Abdomen-Benign,no masses,bowel sound present Extremities-No edema Neuro-AAOx3 Lab data as noted below. ASSESSMENT & PLAN: Diabetic ketoacidosis. Due to not taking Insulin for the last 2 weeks Presented with typical symptoms of DKA No Infection was noted Received Insulin drip and IVF with electrolytes replacement Clinically much better SQ Insulin solid food started Appreciate Pharmacy input Likely home tomorrow Gastrointestinal prophylaxis with Protonix. Deep venous thrombosis prophylaxis with subcutaneous heparin. Code status: He will be a full code. DISPOSITION Likely discharge tomorrow Vital Signs: Date Time Temp Pulse Resp B/P (MAP) Pulse Ox O2 Delivery O2 Flow Rate FiO2 04/03/17 07:39 36.7 78 17 116/79 (91) 99 Room Air 04/03/17 04:00 Room Air 04/03/17 02:51 36.9 71 16 103/63 (76) 98 Room Air 04/03/17 00:01 Room Air 04/02/17 23:33 36.5 74 19 114/69 (84) 99 Room Air 04/02/17 20:00 Room Air 04/02/17 19:12 36.4 79 18 112/66 (81) 100 Room Air 04/02/17 18:31 36.5 85 18 115/70 100 Room Air 04/02/17 18:12 36.4 78 18 126/77 99 04/02/17 18:12 78 18 126/77 99 Room Air 04/02/17 17:20 81 18 121/71 99 Room Air 04/02/17 15:18 36.4 87 18 123/72 99 Room Air Lab Results: Results Past 24 Hours Test 04/02/17 15:24 04/02/17 15:33 04/02/17 15:35 04/02/17 15:41 Range/Units Bedside Glucose 290 70-99 mg/dl White Blood Count 5.90 4.8-10.8 K/uL Red Blood Count 5.53 4.7-6.1 M/uL Hemoglobin 18.8 14.0-18.0 g/dL Hematocrit 50.3 42-52 % Mean Corpuscular Volume 91.0 80-100 fL Mean Corpuscular Hemoglobin 34.0 25-34 pg Mean Corpuscular Hemoglobin Concent 37.4 32-36 g/dl Platelet Count 203 130-400 K/uL Neutrophils (%) (Auto) 66.3 % Lymphocytes (%) (Auto) 21.2 % Monocytes (%) (Auto) 8.6 % Eosinophils (%) (Auto) 3.6 % Basophils (%) (Auto) 0.0 % Neutrophils # (Auto) 3.91 1.4-6.5 K/uL Lymphocytes # (Auto) 1.25 1.2-3.4 K/uL Monocytes # (Auto) 0.51 0.11-0.59 K/uL Eosinophils # (Auto) 0.21 0-0.5 K/uL Basophils # (Auto) 0.00 0-0.2 K/uL Immature Granulocyte % (Auto) 0.3 % Immature Granulocyte # (Auto) 0.02 0.00-0.02 K/uL Prothrombin Time 9.7 9.0-12.0 SECONDS Prothromb Time International Ratio 0.9 0.9-1.1 Sodium Level 134 136-145 mmol/L Potassium Level 4.4 3.5-5.1 mmol/L Chloride Level 102 98-107 mmol/L Carbon Dioxide Level 14 21-32 mmol/L Anion Gap 18.0 3-11 mmol/L Blood Urea Nitrogen 14 7-18 mg/dl Creatinine 1.20 0.60-1.40 mg/dl Estimated GFR () 94.1 Estimated GFR (Non- 81.2 BUN/Creatinine Ratio 11.5 10-20 Random Glucose 291 70-99 mg/dl Calcium Level 8.5 8.5-10.1 mg/dl Total Bilirubin 1.0 0.2-1 mg/dl Direct Bilirubin 0.2 0-0.2 mg/dl Aspartate Amino Transf (AST/SGOT) 14 15-37 U/L Alanine Aminotransferase (ALT/SGPT) 35 12-78 U/L Alkaline Phosphatase 135 45-117 U/L Total Protein 7.5 6.4-8.2 gm/dl Albumin 4.2 3.4-5.0 gm/dl Lipase 97 73-393 U/L Beta-Hydroxybutyric Acid 101.50 0.2-2.81 mg/dL Urine Color YELLOW Urine Appearance CLEAR CLEAR Urine pH 5.0 4.5-7.5 Urine Specific [place] 1.035 1.000-1.030 Urine Protein 1+ NEG Urine Glucose (UA) 3+ NEG Urine Ketones 4+ NEG Urine Occult Blood NEG NEG Urine Nitrite NEG NEG Urine Bilirubin NEG NEG Urine Urobilinogen NEG NEG Urine Leukocyte Esterase NEG NEG Urine WBC (Auto) 1-5 0-5 /hpf Urine RBC (Auto) 0-4 0-4 /hpf Urine Hyaline Casts (Auto) 1-5 0-5 /lpf Urine Epithelial Cells (Auto) 5-10 0-5 /lpf Urine Bacteria (Auto) NEG NEG Venous Blood pH 7.25 7.36-7.41 Venous Blood Partial Pressure CO2 25 38.0-50.0 mmHg Venous Blood Partial Pressure O2 80 mmHg Venous Blood HCO3 11 mmol/L Venous Blood Oxygen Saturation 95.0 % Venous Blood Base Excess -14.6 mmol/L Test 04/02/17 17:09 04/02/17 18:19 04/02/17 19:16 04/02/17 20:10 Range/Units Bedside Glucose 267 236 249 70-99 mg/dl Sodium Level 135 136-145 mmol/L Potassium Level 3.9 3.5-5.1 mmol/L Chloride Level 107 98-107 mmol/L Carbon Dioxide Level 17 21-32 mmol/L Anion Gap 11.0 3-11 mmol/L Blood Urea Nitrogen 11 7-18 mg/dl Creatinine 1.00 0.60-1.40 mg/dl Est Creatinine Clear Calc Drug Dose 113.3 ml/min Estimated GFR () 117.4 Estimated GFR (Non- 101.3 BUN/Creatinine Ratio 11.1 10-20 Random Glucose 205 70-99 mg/dl Calcium Level 7.6 8.5-10.1 mg/dl Test 04/02/17 20:16 04/02/17 21:16 04/02/17 22:20 04/02/17 23:41 Range/Units Bedside Glucose 215 190 167 70-99 mg/dl Sodium Level 139 136-145 mmol/L Potassium Level 3.7 3.5-5.1 mmol/L Chloride Level 108 98-107 mmol/L Carbon Dioxide Level 22 21-32 mmol/L Anion Gap 9.0 3-11 mmol/L Blood Urea Nitrogen 10 7-18 mg/dl Creatinine 1.00 0.60-1.40 mg/dl Est Creatinine Clear Calc Drug Dose 113.3 ml/min Estimated GFR () 117.4 Estimated GFR (Non- 101.3 BUN/Creatinine Ratio 10.1 10-20 Random Glucose 142 70-99 mg/dl Calcium Level 7.6 8.5-10.1 mg/dl Test 04/03/17 00:18 04/03/17 02:22 04/03/17 03:40 04/03/17 04:00 Range/Units Bedside Glucose 155 100 87 70-99 mg/dl Sodium Level 142 136-145 mmol/L Potassium Level 3.7 3.5-5.1 mmol/L Chloride Level 113 98-107 mmol/L Carbon Dioxide Level 23 21-32 mmol/L Anion Gap 6.0 3-11 mmol/L Blood Urea Nitrogen 9 7-18 mg/dl Creatinine 1.00 0.60-1.40 mg/dl Est Creatinine Clear Calc Drug Dose 113.3 ml/min Estimated GFR () 117.4 Estimated GFR (Non- 101.3 BUN/Creatinine Ratio 8.9 10-20 Random Glucose 132 70-99 mg/dl Calcium Level 7.7 8.5-10.1 mg/dl Test 04/03/17 04:02 04/03/17 05:21 04/03/17 05:47 04/03/17 06:29 Range/Units Bedside Glucose 140 150 157 70-99 mg/dl Sodium Level 141 136-145 mmol/L Potassium Level 3.7 3.5-5.1 mmol/L Chloride Level 112 98-107 mmol/L Carbon Dioxide Level 23 21-32 mmol/L Anion Gap 6.0 3-11 mmol/L Blood Urea Nitrogen 9 7-18 mg/dl Creatinine 0.91 0.60-1.40 mg/dl Est Creatinine Clear Calc Drug Dose 127.1 ml/min Estimated GFR () 131.5 Estimated GFR (Non- 113.5 BUN/Creatinine Ratio 9.5 10-20 Random Glucose 141 70-99 mg/dl Calcium Level 8.0 8.5-10.1 mg/dl Test 04/03/17 08:19 04/03/17 09:19 Range/Units Bedside Glucose 296 335 70-99 mg/dl
[2017-04-03 11:36] VITALS: BP 110/71; PULSE 77; TEMP 36.6; O2SAT 98
[2017-04-03] MEDS ORDERED: NURSING VERBAL MED ORDER ONE (13:00)
[2017-04-03 13:38] LABS: BUN/CREATININE RATIO 6.8 (10-20); CALCIUM 8.1 mg/dl (8.5-10.1); CREATININE 1.2 mg/dl (0.60-1.40); POTASSIUM 3.6 mmol/L (3.5-5.1)
[2017-04-03] MEDS: NICOTINE 21 MG/24 HR TDSY EXT SCH (13:46)
[2017-04-03 15:17] VITALS: BP 110/75; PULSE 78; TEMP 36.5; O2SAT 100
[2017-04-03] MEDS ORDERED: DC IV INSULIN INFUSION ONE (16:00)
[2017-04-03 19:20] VITALS: BP 115/76; PULSE 74; TEMP 36.6; O2SAT 99
[2017-04-04] VITALS: BP 100/65; PULSE 67; TEMP 36.4; O2SAT 96
[2017-04-04] MEDS: INSULIN ASPART 100 UNITS/ML 3 ML PEN SC SCH ×4 (00:03→11:29)
[2017-04-04 04:10] VITALS: BP 116/74; PULSE 70; TEMP 36.5; O2SAT 99
[2017-04-04] MEDS: HEPARIN SOD 5000 UNIT/0.5 ML CARP SQ SCH (05:19)
[2017-04-04 06:39] LABS: ESTIMATED AVERAGE GLUCOSE 326 mg/dl; HA1C FLAG Normal (Normal)
[2017-04-04 06:51] LABS: BUN/CREATININE RATIO 11.3 (10-20); CALCIUM 8.4 mg/dl (8.5-10.1); CREATININE 0.78 mg/dl (0.60-1.40); MAGNESIUM 1.8 mg/dl (1.8-2.4); PHOSPHORUS 3.9 mg/dl (2.5-4.9); POTASSIUM 3.1 mmol/L (3.5-5.1)
[2017-04-04 07:12] VITALS: BP 97/59; PULSE 80; TEMP 36.6; O2SAT 100
[2017-04-04] MEDS: PANTOprazole SOD 40 MG TAB PO SCH (07:35)
[2017-04-04] MEDS: NICOTINE 21 MG/24 HR TDSY EXT SCH (07:36)
[2017-04-04] MEDS: INSULIN GLARGINE SOLOSTAR 100 UNITS/ML 3 ML PEN SC SCH (08:08)
[2017-04-04] MEDS ORDERED: POTASSIUM CHLORIDE 10 MEQ TABCR PO ONE (08:45)
--- NOTE | 2017-04-04 10:17 | Pharmacy Progress Note ---
Glycemic: Assessment & Plan Date of Service Apr 04, 2017. Assessment & Plan ASSESSMENT: * 31 yo Type 1 diabetic male well known to pharmacy from previous admissions/ glycemic consults * Pt initiated on IV insulin infusion 04/02 for DKA and transitioned to SQ basal bolus 04/03. * Per previous admissions and last 24hr BSG data; pt seems to do well with ~ 60 units of insulin per day. * Ideally, we would like this to be in a 50%:50% distribution of basal: prandial insulin. However, pt has no insurance and will need most affordable insulin regimen possible. * [employer] brand insulin {ReliOn} comes in NPH, Regular, and mixed NPH/Regular in a 70/30 distribution * Recommend using the premixed insulin to help decrease cost and complexity of calculating meal coverage and mixing insulins prior to administration. DISCHARGE RECOMMENDATIONS: * ReliOn (NPH/Regular) 70/30 insulin as it is ~ $25/vial delgadillo sanchez. At dosing below patient should only require 2 vials/month. * Inject 40 units SQ daily with breakfast * Inject 20 units SQ daily with dinner * Patient will need Rx for: * ReliOn 70/30 insulin 40 units SQ daily in AM with breakfast and 20 units daily in PM with dinner * Insulin syringes * Test strips {corresponding to his meter} * Lancets * Please note that the plan above was derived based on current level of insulin resistance and hospital stress. These recommendations are appropriate for inpatient admission only. Plan of care upon discharge will need to be reassessed to avoid potential outpatient hypo/hyperglycemia.
--- NOTE | 2017-04-04 10:48 | Progress Note ---
Internal Med Progress Note Date of Service: Apr 04, 2017. Provider Documentation: SUBJECTIVE: The patient was seen and examined Much improved Denies any Nausea,vomiting,No palpitation,sob Weakness is better and asking for solid food Denies any symptoms Tolerating solid food and ambulating well Wants to go home today OBJECTIVE: Vital Signs-as noted below Exam: General-No distress at rest Eyes-Normal ENT-normal Neck-supple Lungs-clear to ausucltate bilaterally Heart-Regular,no murmur Abdomen-Benign,no masses,bowel sound present Extremities-No edema Neuro-AAOx3 Lab data as noted below. ASSESSMENT & PLAN: Diabetic ketoacidosis. Due to not taking Insulin for the last 2 weeks Presented with typical symptoms of DKA No Infection was noted Received Insulin drip and IVF with electrolytes replacement Clinically much better SQ Insulin as ordered and solid food started-04/03/17 Appreciate Pharmacy input and recommendation Medically stable to be discharged today Gastrointestinal prophylaxis with Protonix. Can try Tums as an OP Tobacco Use disorder Started on Nicotine Patch Advised to quit smoking Deep venous thrombosis prophylaxis with subcutaneous heparin. Code status: He will be a full code. DISPOSITION Discharge today Vital Signs: Date Time Temp Pulse Resp B/P (MAP) Pulse Ox O2 Delivery O2 Flow Rate FiO2 04/04/17 08:00 Room Air 04/04/17 07:12 36.6 80 18 97/59 (72) 100 Room Air 04/04/17 04:10 36.5 70 16 116/74 (88) 99 Room Air 04/04/17 04:00 Room Air 04/04/17 00:00 36.4 67 16 100/65 (77) 96 Room Air 04/03/17 23:59 Room Air 04/03/17 20:00 Room Air 04/03/17 19:20 36.6 74 16 115/76 (89) 99 Room Air 04/03/17 16:00 Room Air 04/03/17 15:17 36.5 78 17 110/75 (87) 100 Room Air 04/03/17 12:00 Room Air 04/03/17 11:36 36.6 77 18 110/71 (84) 98 Room Air Lab Results: Results Past 24 Hours Test 04/03/17 11:17 04/03/17 12:46 04/03/17 13:06 04/03/17 14:29 Range/Units Bedside Glucose 231 316 258 70-99 mg/dl Sodium Level 139 136-145 mmol/L Potassium Level 3.6 3.5-5.1 mmol/L Chloride Level 105 98-107 mmol/L Carbon Dioxide Level 25 21-32 mmol/L Anion Gap 9.0 3-11 mmol/L Blood Urea Nitrogen 8 7-18 mg/dl Creatinine 1.20 0.60-1.40 mg/dl Est Creatinine Clear Calc Drug Dose 96.4 ml/min Estimated GFR () 94.1 Estimated GFR (Non- 81.2 BUN/Creatinine Ratio 6.8 06-24 Random Glucose 267 70-99 mg/dl Calcium Level 8.1 8.5-10.1 mg/dl Test 04/03/17 15:38 04/03/17 20:24 04/03/17 23:01 04/04/17 00:02 Range/Units Bedside Glucose 196 215 207 195 70-99 mg/dl Test 04/04/17 04:26 04/04/17 05:49 04/04/17 06:57 Range/Units Bedside Glucose 159 193 70-99 mg/dl Sodium Level 143 136-145 mmol/L Potassium Level 3.1 3.5-5.1 mmol/L Chloride Level 109 98-107 mmol/L Carbon Dioxide Level 25 21-32 mmol/L Anion Gap 9.0 3-11 mmol/L Blood Urea Nitrogen 9 7-18 mg/dl Creatinine 0.78 0.60-1.40 mg/dl Est Creatinine Clear Calc Drug Dose 148.8 ml/min Estimated GFR () 141.4 Estimated GFR (Non- 122.0 BUN/Creatinine Ratio 11.3 06-24 Random Glucose 177 70-99 mg/dl Calcium Level 8.4 8.5-10.1 mg/dl Phosphorus Level 3.9 2.5-4.9 mg/dl Magnesium Level 1.8 1.8-2.4 mg/dl
[2017-04-04 11:30] VITALS: BP 111/70; PULSE 85; TEMP 36.5; O2SAT 97
[2017-04-04 11:45] VITALS: Ht 180.3 cm; Wt 76.1 kg
[2017-04-04] MEDS ORDERED: NVLGI7030 SC (13:06)
[2017-04-04] MEDS ORDERED: NICO21DI4 EXT (13:06)
--- NOTE | 2017-04-04 13:09 | Discharge Instructions ---
Discharge Instructions Date of Service Apr 04, 2017. Admission Reason for Admission: DKA Discharge Discharge Diagnosis / Problem: Diabetic Ketoacidosis Discharge Goals Goal(s): Prevent Disease Progression Activity Recommendations Activity Limitations: resume your previous activity . Instructions / Follow-Up Instructions / Follow-Up Dr Ellis on 04/07/17 at 12:45PM Current Hospital Diet Patient's current hospital diet: Diabetes Type 1 Diet Discharge Diet Recommended Diet: Diabetes Type 1 Diet Pending Studies Studies pending at discharge: no Laboratory Results Hemoglobin A1c Test 04/03/17 04:00 Range/Units Estimated Average Glucose 326 mg/dl Hemoglobin A1c 13.0 H 4.5-5.6 % Medical Emergencies . Who to Call and When: Medical Emergencies: If at any time you feel your situation is an emergency, please call 911 immediately. . Non-Emergent Contact Non-Emergency issues call your: Primary Care Provider . Past History Medical & Surgical History: (1) Tobacco abuse disorder (2) DKA (diabetic ketoacidoses) . "Provider Documentation" section prepared by Luisa Espinosa. . VTE Core Measure Inpt VTE Proph given/why not?: Unfractionated heparin SQ
[2017-04-04 13:25] VITALS: BP 111/70; PULSE 85; TEMP 36.5; O2SAT 97
--- NOTE | 2017-04-04 17:36 | Discharge Summary ---
Discharge Summary Date of Service Apr 04, 2017. Discharge Summary Admission Date: Apr 02, 2017 at 16:39 Discharge Date: Apr 04, 2017 Discharge Disposition: Home Principal Diagnosis: Diabetic Ketoacidosis, Insulin Dependent Diabetes Secondary Diagnoses/Problems: Please see H&P and Hospital Progress note Medication Reconciliation New Medications: Insulin Aspart 70/30 (Novolog Mix 70/30) Susp 0 SC UD for 30 Days, #1 BTL 40 Units in AM with Breakfast and 20units in PM with Dinner Nicotine (Nicoderm Cq) 21 Mg/24 Hr Dis 1 PATCH EXT QAM for 30 Days, #30 Discontinued Medications: Insulin Aspart (Novolog Flexpen) 100 Units/Ml Inj 1 DOSE SC UD CARBOHYDRATE COVERAGE DIRECTED BY SLIDING SCALE Insulin Glargine (Lantus Solostar) 100 Unit/Ml Inj 15 UNITS SQ AMPM, PEN Admission Information HPI (per Admitting provider): DATE OF ADMISSION: 04/02/2017 PRIMARY CARE PHYSICIAN: CHIEF COMPLAINT: Nausea and vomiting, polyuria, polydipsia for the last few days. HISTORY OF PRESENT COMPLAINT: He is 31-year-old male with significant past medical history of insulin-dependent diabetes, apparently ran out his insurance for the last 2 weeks and he has not been using his insulin for the last 2 weeks. He did not call his primary care doctor's office for these. He has been complaining of weakness, tiredness, polyuria, polydipsia, for the last few days and today he could not take it anymore. He did have some chills but no documented fever, nausea but no vomiting and no problem with his bowel habit. He did not have any numbness and/or tingling in the extremities, but he was so weak that he was feeling almost passing out at home. No chest pain, shortness of breath, palpitations. No cough or phlegm. In the ER, he was hemodynamically stable without fever and/or tachycardia or hypotension and his blood sugar noted to be 290 with a low bicarbonate of 14 and pH of 7.2. From that point, he was admitted to telemetry unit for continuation of care. PAST MEDICAL HISTORY: Significant for insulin-dependent diabetes. PAST SURGICAL HISTORY: Nothing significant. FAMILY HISTORY: Significant that maternal side does have diabetes. SOCIAL HISTORY: He is single. He has 5 children. He smokes about half a pack per day for the last many years. He does not drink and he has a fulltime work. ALLERGIES: CODEINE. MEDICATIONS: As per the Epic note, he has been on Tylenol 2 tablets 650 mg every 4 hours as needed, ibuprofen 600 mg every 6 hours as needed, insulin Lantus 15 units every night at bedtime and in the morning and NovoLog FlexPen 5 units 3 times daily. REVIEW OF SYSTEMS: Other systemic unremarkable except those are mentioned in H&P. PHYSICAL EXAMINATION: GENERAL: On examination in the Emergency Room, he was not having any acute distress. He was feeling thirsty and generally weak, in no apparent distress. VITAL SIGNS: Temperature 36.4, pulse was 87, blood pressure 132/72, saturation 99% on room air. HEENT: Unremarkable. NECK: Supple. No JVD, no bruit. CHEST: Clear to auscultation bilaterally. HEART: S1, S2 regular. ABDOMEN: Soft, benign, nontender, no organomegaly. Bowel sounds present. EXTREMITIES: Negative for any edema. MUSCULOSKELETAL: Did not show any acute arthritis involving any joint. CENTRAL NERVOUS SYSTEM: He is alert, awake, oriented x3. No focal sensory and/or motor deficit appreciated. LABORATORY DATA: Noted today white count was 5.90, H&H 18.8/50.3, platelets was 203; normal differential. Chemistry: Sodium 134, potassium 4.4, chloride 102, carbon dioxide 14, anion gap 18, BUN 14 and creatinine 1.2. LFTs unremarkable. Blood glucose 290 and beta hydroxybutyric acid was 101.50. UA examination - ketones 4+. IMAGING DATA: EKG pending. Chest x-ray unremarkable. Venous blood gas - pH 7.25, pCO2 25 and pO2 80. IMPRESSION AND PLAN: 1. Diabetic ketoacidosis. We will admit the patient to telemetry unit. He is not having any infective cause for diabetic ketoacidosis. He ran out his insulin and has not been taking for the last 2 weeks. Will start with intravenous insulin and give adequate fluid with an electrolyte replacement. We will check his PRP, magnesium and phosphate every 4 hours and go from there. I will restart his usual insulin from tomorrow. 2. Gastrointestinal prophylaxis with Protonix. 3. Deep venous thrombosis prophylaxis with subcutaneous heparin. 4. Code status: He will be a full code. In my clinical judgment, the beneficiary meets criteria as per CMS for 2-midnight stay in the hospital. Of note, his hemoglobin A1c noted in the Epic chart was 12.3, as of July of last year. Hospital Course Diabetic ketoacidosis. Due to not taking Insulin for the last 2 weeks Presented with typical symptoms of DKA No Infection was noted Received Insulin drip and IVF with electrolytes replacement Clinically much better SQ Insulin as ordered and solid food started-04/03/17 Appreciate Pharmacy input and recommendation Medically stable to be discharged today Gastrointestinal prophylaxis with Protonix. Can try Tums as an OP Tobacco Use disorder Started on Nicotine Patch Advised to quit smoking Deep venous thrombosis prophylaxis with subcutaneous heparin. Code status: He will be a full code. DISPOSITION Discharge today Total time spent on discharge = 35 minutes This includes examination of the patient, discharge planning, medication reconciliation, and communication with other providers. Discharge Instructions Date of Service Apr 04, 2017. Admission Reason for Admission: DKA Discharge Discharge Diagnosis / Problem: Diabetic Ketoacidosis Discharge Goals Goal(s): Prevent Disease Progression Activity Recommendations Activity Limitations: resume your previous activity . Instructions / Follow-Up Instructions / Follow-Up Dr Ellis on 04/07/17 at 12:45PM Current Hospital Diet Patient's current hospital diet: Diabetes Type 1 Diet Discharge Diet Recommended Diet: Diabetes Type 1 Diet Pending Studies Studies pending at discharge: no Laboratory Results Hemoglobin A1c Test 04/03/17 04:00 Range/Units Estimated Average Glucose 326 mg/dl Hemoglobin A1c 13.0 H 4.5-5.6 % Medical Emergencies . Who to Call and When: Medical Emergencies: If at any time you feel your situation is an emergency, please call 911 immediately. . Non-Emergent Contact Non-Emergency issues call your: Primary Care Provider . Past History Medical & Surgical History: (1) Tobacco abuse disorder (2) DKA (diabetic ketoacidoses) . "Provider Documentation" section prepared by Luisa Espinosa. . VTE Core Measure Inpt VTE Proph given/why not?: Unfractionated heparin SQ <Electronically signed by Luisa Espinosa M.D.> Signed: 04/04/17 4853 Additional Copies To Kylah Orellana D.O.
== END 2017-04-04 14:19 | disposition home or self-care (01) | DRG 639 ==
LOC: C.EDB 15:07 → C.2T 16:39 → ENRESERV 17:03
PROVIDERS: ADMIT Internal Medicine; ATTEND Internal Medicine
DX: E13.10 Other specified diabetes mellitus with ketoacidosis without coma (principal); I10 Essential (primary) hypertension; Z91.14 Patient's other noncompliance with medication regimen; Z79.4 Long term (current) use of insulin

== ENCOUNTER 2017-06-26 12:25 | Inpatient (IN) | payer OTHER ==
[~2017-06-26] VITALS: Ht 180.3 cm; Wt 79.1 kg
[~2017-06-26 12:25] MED LIST changes: -INSDGIPEN SQ; -NCDT21 TD; +NICO21DI4 EXT; -NVLGIPEN SC
[2017-06-26] MEDS ORDERED: ACETAMINOPHEN 500 MG TAB PO STA (13:33)
[2017-06-26] MEDS ORDERED: ONDANSETRON INJ 2 MG/ML 2 ML VIAL IV PRN ×2 (13:45→16:00)
[2017-06-26] MEDS ORDERED: SODIUM CHLORIDE 0.9% 1000ML 1,000 ML IV ONE ×2 (13:45)
--- NOTE | 2017-06-26 13:45 | EMERGENCY ROOM VISIT NOTE ---
History First contact with patient: 13:19 Chief Complaint: FLU LIKE SX Stated Complaint: FLU SYMPTOMS, VOMIT, COLD, ACHY History of Present Illness The patient is a 32 year old male who presents to the Emergency Room with complaints of flulike symptoms for the last 24 hours. The patient reports severe body aches, headache, and mild nonproductive cough and vomiting. He denies any abdominal pain or diarrhea. The patient is a late onset type I diabetic. His sugars have been running in the 300s for the last 24 hours. He did not receive a flu shot this year. He denies any significant sore throat. Review of Systems 10 system review performed and negative unless noted in HPI or below Past Medical/Surgical History Medical Problems: (1) Dental Disorder Nos (2) Diabetes (3) Hypertension (4) Major depressive disorder, recurrent episode (5) Male Genital Dis Nos (6) Rectal & Anal Hemorrhage (7) Tobacco abuse disorder Family History Cancer Diabetes mellitus Heart disease Hypertension Kidney disease Kidney stones Seizures Social History Smoking Status: Current Every Day Smoker Drug Use: marijuana Marital Status: single Housing Status: lives with family Occupation Status: employed Current/Historical Medications Scheduled Insulin Aspart (Novolog Flexpen), Unknown Dose SC TID Insulin Glargine (Lantus Solostar), Unknown Dose SC BID Physical Exam Vital Signs Date Time Temp Pulse Resp B/P (MAP) Pulse Ox O2 Delivery O2 Flow Rate FiO2 06/26/17 14:59 36.4 90 132/70 99 Room Air 06/26/17 14:51 87 20 139/70 99 Room Air 06/26/17 12:41 36.7 113 16 127/76 98 Room Air Physical Exam VITALS: Vitals are noted on the nurse's note and reviewed by myself. Vital signs stable. GENERAL: 32-year-old male, ill in appearance, nondiaphoretic, SKIN: The skin was warm and moist HEAD: Normocephalic atraumatic. EARS: External auditory canals clear, right tympanic membrane is erythematous. There is a purulent effusion noted. Left external auditory canal is erythematous. Left tympanic membrane is pearly swain without effusion. EYES: Pupils equal round and reactive to light and accommodation. Conjunctivae without injection, sclerae without icterus. Extraocular movements intact. MOUTH: Mucous membranes dry Tonsils are not enlarged. Pharynx mildly erythematous.. Uvula midline. Airway patent. Tongue does not deviate. NECK: Supple without nuchal rigidity. Lymphadenopathy noted in anterior cervical chain bilaterally. Cervical spine is nontender. No JVD. HEART: Tachycardic, regular rhythm without murmurs gallops or rubs. LUNGS: Clear to auscultation bilaterally without wheezes, rales or rhonchi. No accessory muscle use. ABDOMEN: Positive bowel sounds x 4.Soft, mild tenderness to palpation in the left upper quadrant, without organomegaly. No guarding or rebound tenderness. MUSCULOSKELETAL: No muscle atrophy, erythema, or edema noted. Strength 5/5 throughout. NEURO: Patient was alert and oriented to person place and time. Normal sensation to touch. No focal neurological deficits. Medical Decision & Procedures ER Provider Diagnostic Interpretation: CXR IMPRESSION: No active disease in the chest. Electronically signed by: Ramon Keyes M.D. 06/26/2017 2:31 PM Laboratory Results 06/26/17 13:35 Red Blood Count 5.32, Mean Corpuscular Volume 91.0, Mean Corpuscular Hemoglobin 33.5, Mean Corpuscular Hemoglobin Concent 36.8, Mean Platelet Volume 9.4, Neutrophils (%) (Auto) 77.9, Lymphocytes (%) (Auto) 8.9, Monocytes (%) (Auto) 11.3, Eosinophils (%) (Auto) 0.7, Basophils (%) (Auto) 0.7, Neutrophils # (Auto ) 4.55, Lymphocytes # (Auto) 0.52, Monocytes # (Auto) 0.66, Eosinophils # (Auto ) 0.04, Basophils # (Auto) 0.04 Test 06/26/17 13:35 06/26/17 13:45 06/26/17 13:49 06/26/17 15:30 White Blood Count 5.84 K/uL (4.8-10.8) Red Blood Count 5.32 M/uL (4.7-6.1) Hemoglobin 17.8 g/dL (14.0-18.0) Hematocrit 48.4 % (42-52) Mean Corpuscular Volume 91.0 fL (80-100) Mean Corpuscular Hemoglobin 33.5 pg (25-34) Mean Corpuscular Hemoglobin Concent 36.8 g/dl (32-36) Platelet Count 200 K/uL (130-400) Mean Platelet Volume 9.4 fL (7.4-10.4) Neutrophils (%) (Auto) 77.9 % Lymphocytes (%) (Auto) 8.9 % Monocytes (%) (Auto) 11.3 % Eosinophils (%) (Auto) 0.7 % Basophils (%) (Auto) 0.7 % Neutrophils # (Auto) 4.55 K/uL (1.4-6.5) Lymphocytes # (Auto) 0.52 K/uL (1.2-3.4) Monocytes # (Auto) 0.66 K/uL (0.11-0.59) Eosinophils # (Auto) 0.04 K/uL (0-0.5) Basophils # (Auto) 0.04 K/uL (0-0.2) RDW Standard Deviation 41.9 fL (36.4-46.3) RDW Coefficient of Variation 12.5 % (11.5-14.5) Immature Granulocyte % (Auto) 0.5 % Immature Granulocyte # (Auto) 0.03 K/uL (0.00-0.02) Magnesium Level 1.9 mg/dl (1.8-2.4) Total Bilirubin 0.9 mg/dl (0.2-1) Aspartate Amino Transf (AST/SGOT) 15 U/L (15-37) Alanine Aminotransferase (ALT/SGPT) 31 U/L (12-78) Alkaline Phosphatase 117 U/L (45-117) Total Protein 7.8 gm/dl (6.4-8.2) Albumin 4.3 gm/dl (3.4-5.0) Globulin 3.5 gm/dl (2.5-4.0) Albumin/Globulin Ratio 1.2 (0.9-2) Lipase 98 U/L (73-393) Lyme Disease IgG Antibody NEG (NEG) Lyme Disease IgM Antibody NEG (NEG) Influenza Type A (RT-PCR) Neg for Influ A (NEG) Influenza Type B (RT-PCR) Neg for Influ B (NEG) Venous Blood pH 7.25 (7.36-7.41) Venous Blood Partial Pressure CO2 28 mmHg (38.0-50.0) Venous Blood Partial Pressure O2 44 mmHg Venous Blood HCO3 12 mmol/L Venous Blood Oxygen Saturation 76.9 % Venous Blood Base Excess -13.7 mEq/L Urine Color YELLOW Urine Appearance CLEAR (CLEAR) Urine pH 5.0 (4.5-7.5) Urine Specific [place] 1.032 (1.000-1.030) Urine Protein 1+ (NEG) Urine Glucose (UA) 3+ (NEG) Urine Ketones 4+ (NEG) Urine Occult Blood NEG (NEG) Urine Nitrite NEG (NEG) Urine Bilirubin NEG (NEG) Urine Urobilinogen NEG (NEG) Urine Leukocyte Esterase NEG (NEG) Urine WBC (Auto) 1-5 /hpf (0-5) Urine RBC (Auto) 0-4 /hpf (0-4) Urine Hyaline Casts (Auto) 0 /lpf (0-5) Urine Epithelial Cells (Auto) 10-20 /lpf (0-5) Urine Bacteria (Auto) NEG (NEG) Medications Administered Medications (Trade) Dose Ordered Sig/Isac Route Start Time Stop Time Status Last Admin Dose Admin Acetaminophen (Tylenol Tab) 1,000 mg NOW STAT PO 06/26/17 13:33 06/26/17 13:39 DC 06/26/17 13:50 1,000 MG Sodium Chloride 1,000 ml @ 999 mls/hr Q1H1M ONCE IV 06/26/17 13:45 06/26/17 14:45 DC 06/26/17 13:49 999 MLS/HR Sodium Chloride 1,000 ml @ 999 mls/hr Q1H1M ONCE IV 06/26/17 13:45 06/26/17 14:45 DC 06/26/17 14:00 999 MLS/HR Ondansetron HCl (Zofran Inj) 4 mg Q2H PRN IV 06/26/17 13:45 06/26/17 18:08 DC 06/26/17 13:49 4 MG Insulin Human Regular (novoLIN-R U-100 PER UNIT) 8 units NOW STAT IV 06/26/17 14:36 06/26/17 14:38 DC 06/26/17 15:01 8 UNITS ED Course Patient was seen and examined Vital signs including blood pressure were reviewed medications list was verified with patient Labs were obtained, and a saline lock was established the patient was given Zofran 4 mg IV and Tylenol 1 g po. He was hydrated with 2 L of normal saline bolus The patient was given insulin 8 units IV. The patient was reassessed and slightly more comfortable. The nausea was better. We discussed the results of his workup. He voiced understanding and was in agreement with admission. [facility] to [facility] the patient for further workup and treatment. Medical Decision Differential diagnosis: Bronchitis, pneumonia, strep pharyngitis, viral pharyngitis, influenza , DKA, otitis media, other viral syndrome This patient is a 32-year-old male that presents to emergency department with complaints of body aches, mild cough and vomiting. On exam, he does appear ill. His workup revealed no leukocytosis. Chest x-ray was clear. He does appear to be in DKA with his blood sugars being over 400, and anion gap and metabolic acidosis. The patient was hydrated with 2 L of normal saline in the emergency department. He was also given IV insulin. I do not think that he is stable enough to be discharged home. He will need to be admitted for further workup and treatment. This chart was completed in part utilizing [employer] Speech Voice Recognition software. Attempts were made to minimize the grammatical errors, random word insertions, pronoun errors and incomplete sentences. Any formal questions or concerns about the content, text or information contained within the body of this dictation should be directly addressed to the provider for clarification. Medication Reconcilliation Current Medication List: was personally reviewed by me Impression Primary Impression: DKA (diabetic ketoacidoses) Departure Information Referrals Kylah Orellana D.O. (PCP) Patient Instructions [facility]
[2017-06-26 13:53] LABS: BASO % 0.7 %; BASO ABS # 0.04 K/uL (0-0.2); COMPLETE YES; EOS % 0.7 %; HEMATOCRIT 48.4 % (42-52); IG% 0.5 %; LYMPH % 8.9 %; LYMPH ABS # 0.52 K/uL (1.2-3.4); MEAN CORPUSCULAR HEMOGLOBIN 33.5 pg (25-34); MEAN CORPUSCULAR HGB CONC 36.8 g/dl (32-36); MEAN PLATELET VOLUME 9.4 fL (7.4-10.4); MONO % 11.3 %; NEUT % 77.9 %; PLATELET COUNT 200 K/uL (130-400); RED BLOOD COUNT 5.32 M/uL (4.7-6.1); WHITE BLOOD COUNT 5.84 K/uL (4.8-10.8)
[2017-06-26 14:09] LABS: VEN BLD GAS O2 SATURATION 76.9 %; VEN BLOOD GAS BASE EXCESS -13.7 mEq/L
[2017-06-26 14:32] LABS: ALB/GLOB RATIO 1.2 (0.9-2); BUN/CREATININE RATIO 9.6 (10-20); CALCIUM 8.5 mg/dl (8.5-10.1); CREATININE 1.32 mg/dl (0.60-1.40); MAGNESIUM 1.9 mg/dl (1.8-2.4); POTASSIUM 4.7 mmol/L (3.5-5.1)
--- NOTE | 2017-06-26 14:33 | DIAGNOSTIC IMAGING REPORT ---
CHEST 2 VIEWS ROUTINE CLINICAL HISTORY: cough FLULIKE SYMPTOMS. VOMITING. MAY LEADS. COMPARISON STUDY: 04/02/2017 FINDINGS: The cardiac and mediastinal contours are normal. There is no evidence of focal pulmonary consolidation. There is no evidence of failure. No pleural effusions are visualized.[ IMPRESSION: No active disease in the chest. Electronically signed by: Ramon Keyes M.D. 06/26/2017 2:31 PM Dictated Date/Time: 06/26/2017 2:31 PM
[2017-06-26] MEDS ORDERED: NVLGI/PEN SC (14:35)
[2017-06-26] MEDS ORDERED: INSDGIPEN SC (14:35)
[2017-06-26] MEDS ORDERED: NovoLIN-R INSULIN PER UNIT CHARGE IV STA (14:36)
[2017-06-26 14:59] LABS: BETA-HYDROXYBUTYRATE 104.79 mg/dL (0.2-2.81)
[2017-06-26 15:44] LABS: URINE APPEARANCE CLEAR (CLEAR); URINE BILIRUBIN NEG (NEG); URINE COLOR YELLOW; URINE NITRITE NEG (NEG); URINE SPECIFIC GRAVITY 1.032 (1.000-1.030); UROBILINOGEN NEG (NEG)
[2017-06-26 15:45] LABS: INFLUENZA A PCR Neg for Influ A (NEG); INFLUENZA B PCR Neg for Influ B (NEG)
[2017-06-26] MEDS ORDERED: SODIUM CHLORIDE 0.9% 1000ML 1,000 ML IV SCH (15:47)
[2017-06-26 15:49] LABS: MANUAL MICROSCOPIC REQUIRED? NO; REVIEW REQ? NO
--- NOTE | 2017-06-26 15:57 | History and Physical ---
History & Physical Date & Time of Service: Jun 26, 2017 at 15:57 Chief Complaint: Flu Symptoms, Vomit, Cold, Achy Primary Care Physician: No Doctor, Assigned History of Present Illness Source: patient 32 yo M with hx of Type 1 DM . poorly compliant with insulin regimen , presents to ED with complain of nausea , vomiting , abdominal pain , generalized body ache pt is a very poor historian -mentions he has been following instructions for low carb diet, taking his insulin yesterday morning he felt -nauseated, weak , having abdominal pain , fatigue - had to go to work , thinks that he took his insulin ( takes Lantus 10-15 U BID and Novolog 1: 10 unit could not tell me the range of the sliding scale ) checked his Blood sugar it was in 280 this morning -he felt worse , having generalized abdominal pain , nausea . vomiting , chills , severe fatigue . body ache arrived to ED , found to be in DKA , BSG > 350 with elevated anion gap of 22 , Beta Hydroxybutyrate > 100 pt started on IV insulin gtt , given IV fluid 1 liter bolus and continued IV Fluid resuscitation per DKA protocol repeat Lab shows: improved AG to 18 . BSG improved ~200 ; bicarb level improved 11-> 13 pt feels much better ,nausea has resolved, minimum abdominal discomfort finished dinner no fever or chills no complains of generalized body ache or pain Past Medical/Surgical History Medical Problems: (1) Diabetes Status: Chronic (2) Hypertension Status: Chronic Family History Cancer Diabetes mellitus Heart disease Hypertension Kidney disease Kidney stones Seizures Social History Smoking Status: Current Every Day Smoker Drug Use: marijuana Marital Status: single Housing status: lives with family Occupational Status: employed Immunizations History of Influenza Vaccine: Unknown History of Tetanus Vaccine?: Unknown History of Pneumococcal: Unknown Multi-Drug Resistant Organisms History of MDRO: No Allergies Coded Allergies: Methyl Salicylate (Unverified Allergy, Unknown, HIVES, "FEELS LIKE FIRE ON MY SKIN", 06/26/17) Codeine (Verified Adverse Reaction, Intermediate, BECOMES VERY AGGRESSIVE , 06/26/17) Home Medications Scheduled Insulin Aspart (Novolog Flexpen), Unknown Dose SC TID Insulin Glargine (Lantus Solostar), Unknown Dose SC BID Review of Systems Constitutional: + chills, + sweats, + weakness, + fatigue Abdomen: + pain, + nausea, + vomiting Musculoskeletal: + joint pain, + muscle pain Neurologic: + weakness, + numbness/tingling, + vertigo Physical Exam Vital Signs Date Time Temp Pulse Resp B/P (MAP) Pulse Ox O2 Delivery O2 Flow Rate FiO2 06/26/17 14:59 36.4 90 132/70 99 Room Air 06/26/17 14:51 87 20 139/70 99 Room Air 06/26/17 12:41 36.7 113 16 127/76 98 Room Air General Appearance: no apparent distress Head: normocephalic, atraumatic Eyes: normal inspection, PERRL, EOMI, sclerae normal ENT: hearing grossly normal, TMs normal Neck: supple, no adenopathy, thyroid normal, no carotid bruits, trachea midline Respiratory/Chest: chest non-tender, lungs clear, normal breath sounds, no respiratory distress Cardiovascular: regular rate, rhythm, no edema Abdomen/GI: normal bowel sounds, non tender, soft Extremities/Musculoskelatal: normal capillary refill, no pedal edema, normal range of motion 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: no motor/sensory deficits, alert, normal mood/affect, oriented x 3 Skin: normal color, warm/dry, no rash Diagnostics Laboratory Results Results Past 24 Hours Test 06/26/17 12:47 06/26/17 13:35 06/26/17 13:45 06/26/17 13:49 Range/Units Bedside Glucose 396 70-99 mg/dl White Blood Count 5.84 4.8-10.8 K/uL Red Blood Count 5.32 4.7-6.1 M/uL Hemoglobin 17.8 14.0-18.0 g/dL Hematocrit 48.4 42-52 % Mean Corpuscular Volume 91.0 80-100 fL Mean Corpuscular Hemoglobin 33.5 25-34 pg Mean Corpuscular Hemoglobin Concent 36.8 32-36 g/dl Platelet Count 200 130-400 K/uL Mean Platelet Volume 9.4 7.4-10.4 fL Neutrophils (%) (Auto) 77.9 % Lymphocytes (%) (Auto) 8.9 % Monocytes (%) (Auto) 11.3 % Eosinophils (%) (Auto) 0.7 % Basophils (%) (Auto) 0.7 % Neutrophils # (Auto) 4.55 1.4-6.5 K/uL Lymphocytes # (Auto) 0.52 1.2-3.4 K/uL Monocytes # (Auto) 0.66 0.11-0.59 K/uL Eosinophils # (Auto) 0.04 0-0.5 K/uL Basophils # (Auto) 0.04 0-0.2 K/uL RDW Standard Deviation 41.9 36.4-46.3 fL RDW Coefficient of Variation 12.5 11.5-14.5 % Immature Granulocyte % (Auto) 0.5 % Immature Granulocyte # (Auto) 0.03 0.00-0.02 K/uL Sodium Level 129 136-145 mmol/L Potassium Level 4.7 3.5-5.1 mmol/L Chloride Level 96 98-107 mmol/L Carbon Dioxide Level 11 21-32 mmol/L Anion Gap 22.0 3-11 mmol/L Blood Urea Nitrogen 13 7-18 mg/dl Creatinine 1.32 0.60-1.40 mg/dl Est Creatinine Clear Calc Drug Dose 85.6 ml/min Estimated GFR () 83.3 Estimated GFR (Non- 71.9 BUN/Creatinine Ratio 9.6 10-20 Random Glucose 377 70-99 mg/dl Calcium Level 8.5 8.5-10.1 mg/dl Magnesium Level 1.9 1.8-2.4 mg/dl Total Bilirubin 0.9 0.2-1 mg/dl Aspartate Amino Transf (AST/SGOT) 15 15-37 U/L Alanine Aminotransferase (ALT/SGPT) 31 12-78 U/L Alkaline Phosphatase 117 45-117 U/L Total Protein 7.8 6.4-8.2 gm/dl Albumin 4.3 3.4-5.0 gm/dl Globulin 3.5 2.5-4.0 gm/dl Albumin/Globulin Ratio 1.2 0.9-2 Lipase 98 73-393 U/L Beta-Hydroxybutyric Acid 104.79 0.2-2.81 mg/dL Influenza Type A (RT-PCR) Neg for Influ A NEG Influenza Type B (RT-PCR) Neg for Influ B NEG Venous Blood pH 7.25 7.36-7.41 Venous Blood Partial Pressure CO2 28 38.0-50.0 mmHg Venous Blood Partial Pressure O2 44 mmHg Venous Blood HCO3 12 mmol/L Venous Blood Oxygen Saturation 76.9 % Venous Blood Base Excess -13.7 mEq/L Test 06/26/17 15:30 06/26/17 15:46 06/26/17 15:47 Range/Units Urine Color YELLOW Urine Appearance CLEAR CLEAR Urine pH 5.0 4.5-7.5 Urine Specific [place] 1.032 1.000-1.030 Urine Protein 1+ NEG Urine Glucose (UA) 3+ NEG Urine Ketones 4+ NEG Urine Occult Blood NEG NEG Urine Nitrite NEG NEG Urine Bilirubin NEG NEG Urine Urobilinogen NEG NEG Urine Leukocyte Esterase NEG NEG Urine WBC (Auto) 1-5 0-5 /hpf Urine RBC (Auto) 0-4 0-4 /hpf Urine Hyaline Casts (Auto) 0 0-5 /lpf Urine Epithelial Cells (Auto) 10-20 0-5 /lpf Urine Bacteria (Auto) NEG NEG CXR normal Impression Assessment and Plan DKA : hx of type 1 DM with poor compliance presented with weakness, fatigue , generalized body ache found to be in DKA with BSG > 400 with elevated anion gap given IV Insulin in ER pt will be started on on IV insulin infusion cont to monitor PRP /Mg/phos /VBG check q 4 hrs till DKA /anion gap resolved pharmacy consulted for glycemic management peer educator consulted METABOLIC ACIDOSIS : due to above cont IV insulin gtt IVF monitor electrolytes Q 4hrs till Metabolic acidosis /anion gap corrected HYPONATREMIA : due to elevated blood sugar cont correction of DKA with IV insulin infusion IVF with NSS TOBACCO ABUSE DISORDER : Smokes 1/2 pk cig a day since age 18 pt is counselled regarding risk for early NC /stroke, end stage renal failure with Type 1 DM and smoking pt verbalized understanding planning to quit nicotine patch ordered FULL CODE DVT PROPHYLAXIS : sub q heparin DISPOSITION : expected to be discharged home when medically stable Level of Care Telemetry Resuscitation Status FULL RESUSCITATION VTE Prophylaxis VTE Risk Assessment Done? Y/N: Yes Risk Level: Moderate Given or contraindicated: Unfractionated heparin SQ Additional Copies To Kylah Orellana D.O.
[2017-06-26] MEDS ORDERED: PENDING NSS+20mEq KCL IVF SCH (16:00)
[2017-06-26] MEDS ORDERED: SEVERE STRESS LEVEL ONE (16:00)
[2017-06-26] MEDS ORDERED: ALUMINUM/MAGNESIUM/SIMETH (MAALOX MAX) 30 ML UDC PO PRN (16:00)
[2017-06-26] MEDS ORDERED: ACETAMINOPHEN 325 MG TAB PO PRN (16:00)
[2017-06-26] MEDS ORDERED: PENDING D5NS+20mEq KCL IVF SCH (16:00)
[2017-06-26] MEDS ORDERED: DKA GOAL RANGE 150-250 mg/dl 1 EA ONE (16:00)
[2017-06-26] MEDS ORDERED: MAGNESIUM HYDROXIDE SUSP 30 ML UDC PO PRN (16:00)
[2017-06-26 16:20] VITALS: BMI 22.8
[2017-06-26 16:44] LABS: LYME DISEASE AB IGM NEG (NEG)
[2017-06-26 16:45] LABS: LYME DISEASE AB IGG NEG (NEG)
[2017-06-26] MEDS ORDERED: GLUCOSE 10 TABS/TUBE PO PRN ×2 (17:00→19:45)
[2017-06-26] MEDS ORDERED: DEXTROSE 50% 50 ML SYR IV PRN ×2 (17:00→19:45)
[2017-06-26] MEDS ORDERED: GLUCAGON FOR INJ 1 MG VIAL SQ PRN ×2 (17:00→19:45)
[2017-06-26] MEDS ORDERED: INSULIN IV INFUSION PROTOCOL SCH (17:00)
[2017-06-26] MEDS ORDERED: GLUCOSE 40% GEL 15 GM TUBE PO PRN ×2 (17:00→19:45)
[2017-06-26 17:40] VITALS: BP 122/73; PULSE 92; TEMP 36.6; O2SAT 98
[2017-06-26 18:16] VITALS: O2SAT 98
[2017-06-26] MEDS ORDERED: PHARMACY GLYCEMIC MGMT CONSULT PRN (18:23)
[2017-06-26] MEDS ORDERED: INSULIN HUMAN REGULAR IV BOLUS 3 UNIT in SYRINGE 0 ML IV ONE (18:30)
[2017-06-26] MEDS ORDERED: INSULIN HUMAN REGULAR IV BOLUS 2 UNIT in SYRINGE 0 ML IV ONE (18:30)
[2017-06-26 18:32] LABS: BUN/CREATININE RATIO 8.9 (10-20); CALCIUM 7.9 mg/dl (8.5-10.1); CREATININE 1.15 mg/dl (0.60-1.40); PHOSPHORUS 2.1 mg/dl (2.5-4.9)
[2017-06-26] MEDS: INSULIN REGULAR 250 UNITS in SODIUM CHLORIDE 0.9% 250ML 250 ML IV SCH ×2 (18:42→21:50)
[2017-06-26 19:43] LABS: INR 0.9 (0.9-1.1)
[2017-06-26 19:54] VITALS: BP 118/75; PULSE 97; TEMP 36.7; O2SAT 98
[2017-06-26 20:00] VITALS: O2SAT 98
[2017-06-26 20:45] LABS: BUN/CREATININE RATIO 8.6 (10-20); CALCIUM 7.4 mg/dl (8.5-10.1); CREATININE 1.2 mg/dl (0.60-1.40); POTASSIUM 3.8 mmol/L (3.5-5.1)
[2017-06-26] MEDS ORDERED: INSULIN HUMAN REGULAR SC SCH (21:00)
[2017-06-26] MEDS: HEPARIN SOD 5000 UNIT/0.5 ML CARP SQ SCH (21:00)
[2017-06-26] MEDS: POT PHOSPHATE MONOBASIC W/ SOD TAB PO SCH ×2 (21:00→21:07)
[2017-06-26] MEDS: NICOTINE 21 MG/24 HR TDSY TD SCH (21:09)
[2017-06-26] MEDS: D5NSS + 20MEQ KCL 1,000 ML IV SCH (21:42)
[2017-06-26 22:52] VITALS: BP 102/62; PULSE 88; TEMP 36.8; O2SAT 98
[2017-06-27] VITALS (10 sets, daily range): BP systolic 112–125; BP diastolic 66–81; PULSE 83–193; TEMP 36.6–36.9; O2SAT 96–99; Ht 180.3 cm; Wt 79.1 kg
[2017-06-27 00:24] LABS: BUN/CREATININE RATIO 7.5 (10-20); CALCIUM 7.5 mg/dl (8.5-10.1); CREATININE 1.25 mg/dl (0.60-1.40); POTASSIUM 3.8 mmol/L (3.5-5.1)
[2017-06-27] MEDS: D5NSS + 20MEQ KCL 1,000 ML IV SCH ×3 (04:38→18:23)
[2017-06-27 04:51] LABS: BUN/CREATININE RATIO 8.4 (10-20); CALCIUM 7.7 mg/dl (8.5-10.1); CREATININE 1.27 mg/dl (0.60-1.40); POTASSIUM 3.7 mmol/L (3.5-5.1)
[2017-06-27 04:52] LABS: BETA-HYDROXYBUTYRATE 22.96 mg/dL (0.2-2.81)
[2017-06-27] MEDS: HEPARIN SOD 5000 UNIT/0.5 ML CARP SQ SCH ×2 (07:38→21:00)
[2017-06-27 07:49] LABS: ESTIMATED AVERAGE GLUCOSE 318 mg/dl; HA1C FLAG Normal (Normal)
[2017-06-27] MEDS: NICOTINE 21 MG/24 HR TDSY TD SCH (07:49)
[2017-06-27] MEDS: POT PHOSPHATE MONOBASIC W/ SOD TAB PO SCH ×4 (07:49→21:43)
[2017-06-27] MEDS: INSULIN ASPART 100 UNITS/ML 3 ML PEN SC SCH ×5 (07:52→21:00)
[2017-06-27 08:45] LABS: BUN/CREATININE RATIO 8.9 (10-20); CREATININE 1.2 mg/dl (0.60-1.40); POTASSIUM 3.6 mmol/L (3.5-5.1)
[2017-06-27 12:46] LABS: CALCIUM 8.1 mg/dl (8.5-10.1); CREATININE 1.15 mg/dl (0.60-1.40); POTASSIUM 3.5 mmol/L (3.5-5.1)
[2017-06-27] MEDS ORDERED: INSULIN GLARGINE SOLOSTAR 100 UNITS/ML 3 ML PEN SC ONE (14:15)
--- NOTE | 2017-06-27 14:52 | Pharmacy Progress Note ---
Glycemic Control Intl Consult Date of Service Jun 27, 2017. Scope Glycemic Pharmacist consulted by Dr Abdi on 06/26/17 for glycemic control and to write orders per [facility] inpatient glycemic control protocol. Objective Weight (Kilograms): 79.100 Accuchecks BSG (last 24hrs): Test 06/26/17 14:58 06/26/17 16:11 06/26/17 17:50 06/26/17 18:04 Bedside Glucose 297 mg/dl (70-99) 265 mg/dl (70-99) 235 mg/dl (70-99) Random Glucose 244 mg/dl (70-99) Test 06/26/17 19:49 06/26/17 20:19 06/26/17 20:45 06/26/17 21:41 Bedside Glucose 236 mg/dl (70-99) 248 mg/dl (70-99) 203 mg/dl (70-99) Random Glucose 246 mg/dl (70-99) Test 06/26/17 22:49 06/26/17 23:44 06/26/17 23:59 06/27/17 00:45 Bedside Glucose 213 mg/dl (70-99) 221 mg/dl (70-99) 217 mg/dl (70-99) Random Glucose 233 mg/dl (70-99) Test 06/27/17 02:30 06/27/17 04:25 06/27/17 04:28 06/27/17 06:33 Bedside Glucose 219 mg/dl (70-99) 214 mg/dl (70-99) 218 mg/dl (70-99) Random Glucose 226 mg/dl (70-99) Test 06/27/17 08:05 06/27/17 08:59 06/27/17 10:07 06/27/17 10:55 Random Glucose 276 mg/dl (70-99) Bedside Glucose 332 mg/dl (70-99) 233 mg/dl (70-99) 189 mg/dl (70-99) Test 06/27/17 12:00 06/27/17 12:05 06/27/17 13:12 06/27/17 14:11 Random Glucose 195 mg/dl (70-99) Bedside Glucose 221 mg/dl (70-99) 209 mg/dl (70-99) 174 mg/dl (70-99) Laboratory Data (last 24hrs) Test 06/26/17 18:04 06/26/17 20:19 06/26/17 23:59 06/27/17 04:25 Anion Gap 18.0 mmol/L 17.0 mmol/L 15.0 mmol/L 12.0 mmol/L BUN/Creatinine Ratio 8.9 8.6 7.5 8.4 Blood Urea Nitrogen 10 mg/dl 10 mg/dl 9 mg/dl 11 mg/dl Creatinine 1.15 mg/dl 1.20 mg/dl 1.25 mg/dl 1.27 mg/dl Potassium Level 4.0 mmol/L 3.8 mmol/L 3.8 mmol/L 3.7 mmol/L Sodium Level 133 mmol/L 136 mmol/L 138 mmol/L 141 mmol/L Test 06/27/17 08:05 06/27/17 12:00 Anion Gap 8.0 mmol/L 7.0 mmol/L BUN/Creatinine Ratio 8.9 9.0 Blood Urea Nitrogen 11 mg/dl 10 mg/dl Creatinine 1.20 mg/dl 1.15 mg/dl Potassium Level 3.6 mmol/L 3.5 mmol/L Sodium Level 139 mmol/L 139 mmol/L HbA1c Test 06/26/17 13:35 Hemoglobin A1c 12.7 % (4.5-5.6) H Recent Pertinent Medications Outpatient Anti-diabetic Regimen: * Lantus 10-15 units SQ BID (depending on fasting BSG) * Novolog TID sliding scale (for BSG > 250mg/dL, carb ratio 1:10) * A1c = 12.7 % (06/26/17) Risk Factors for Insulin Resistance: * IVF: D5NS + 20mEq KCl @ 150mL/hr * Diet: Type 1 diabetic diet Assessment & Plan ASSESSMENT: * Patient is a 32yo diabetic male, known to pharmacy glycemic management service from past admissions. * Patient was diagnosed w/ Type 1 DM ~2-3 years ago. This is his 3rd admission this year for DKA. * Patient's labs have improved since admission last evening: * A --> 8 mmoL/L * CO2: 11 --> 24 mmoL/L * pH: 7.28 --> 7.4 * BHBA: 105 --> 23 mg/dL * Although labs are improved, patient remains hyperglycemic on the drip, at rates of 2.5-3 units/hr. * Lantus dose ordered, but expect that patient may need to continue on drip overnight until BSGs are consistently within goal range. PLAN FOR INPATIENT GLYCEMIC CONTROL: * Continue IV insulin infusion -- will begin to add Lantus now to make the transition to SQ insulin easier, when appropriate * Goal Range 110 - 180 mg/dl * LANTUS 10 units SQ x1 dose now * When BSGs have improved enough to stop insulin infusion (i.e. BSGs consistently within goal range) - Lantus 10-15 units SQ BID * Correctional Insulin with NOVOLOG per scale ACHS or Q6hrs while NPO * As per insulin infusion adjustment calculator * When converted to SQ insulin: - Goal Range: Low 110 mg/dL - High 150 mg/dL - Correction Factor: 25 mg/dL/unit - Nutritional / Prandial insulin per carb ratio of 1 unit per 8 grams CHO consumed * Please note that the plan above was derived based on current level of insulin resistance and hospital stress. These recommendations are appropriate for inpatient admission only. Plan of care upon discharge will need to be reassessed to avoid potential outpatient hypo/hyperglycemia. Thank you.
[2017-06-27 14:56] LABS: URINE APPEARANCE CLEAR (CLEAR); URINE BILIRUBIN NEG (NEG); URINE COLOR YELLOW; URINE NITRITE NEG (NEG); URINE SPECIFIC GRAVITY 1.031 (1.000-1.030); UROBILINOGEN NEG (NEG); ZZUR CULT IF INDIC CLEAN CATCH NO
[2017-06-27 15:08] LABS: MANUAL MICROSCOPIC REQUIRED? NO; REVIEW REQ? NO
--- NOTE | 2017-06-27 17:49 | Progress Note ---
Internal Med Progress Note Date of Service: Jun 27, 2017. Provider Documentation: SUBJECTIVE: no complain of nausea , vomiting no abdominal pain or discomfort feel fine . tolerating diet well on IV insulin gtt OBJECTIVE: Vital Signs-as noted below Exam: General-no sign of distress Eyes-sclera non icteric ENT-nad Neck-no thyromegaly , no carotid bruit , neck supple Lungs-CTA ,no wheeze or rales Heart-regular s1/S2 Abdomen-soft, non tender Extremities-macular rash in torso and back -no itching , no bullous lesion noted Neuro-AAO x3, no focal deficit Lab data as noted below. ASSESSMENT & PLAN: DKA /TYPE 1 DM hx of type 1 DM with poor compliance presented with weakness, fatigue , generalized body ache found to be in DKA with BSG > 400 with elevated anion gap symptom improved with IV insulin infusion and IV fluid Hb A1 C > 12 -showing poor compliance pharmacy consulted for glycemic management -appreciate input senior health educator consulted pt will benefit with out pt diabetic clinic and endocrine clinic follow up METABOLIC ACIDOSIS : due to above resolved with IV insulin gtt SKIN RASH : has macular , pain less rash in abdomen and back can not tell the duration of the rash no itching or drainage ,no bullous lesion noted pt very anxious for the rash dermatology eval requested HYPONATREMIA : due to elevated blood sugar resolved TOBACCO ABUSE DISORDER : Smokes 1/2 pk cig a day since age 18 pt is counselled regarding risk for early [place] /stroke, end stage renal failure with Type 1 DM and smoking pt verbalized understanding planning to quit nicotine patch ordered FULL CODE DVT PROPHYLAXIS : sub q heparin DISPOSITION : expected to be discharged home when medically stable Vital Signs: Date Time Temp Pulse Resp B/P (MAP) Pulse Ox O2 Delivery O2 Flow Rate FiO2 06/27/17 17:36 98 06/27/17 17:33 36.6 193 18 123/81 (95) 98 Room Air 06/27/17 16:47 36.6 93 16 96 06/27/17 16:00 Room Air 06/27/17 15:00 36.6 93 16 120/74 (89) 96 Room Air 06/27/17 12:00 Room Air 06/27/17 11:26 36.7 85 16 117/78 (91) 98 06/27/17 08:00 Room Air 06/27/17 07:36 36.9 83 18 116/66 (83) 97 06/27/17 04:00 97 Room Air 06/27/17 03:19 36.9 84 19 125/71 (89) 97 Room Air 06/27/17 00:00 98 Room Air 06/26/17 22:52 36.8 88 19 102/62 (75) 98 Room Air 06/26/17 20:00 98 Room Air 06/26/17 19:54 36.7 97 18 118/75 (89) 98 Room Air Lab Results: Results Past 24 Hours Test 06/26/17 19:49 06/26/17 20:19 06/26/17 20:45 06/26/17 21:41 Range/Units Bedside Glucose 236 248 203 70-99 mg/dl Venous Blood pH 7.34 7.36-7.41 Sodium Level 136 136-145 mmol/L Potassium Level 3.8 3.5-5.1 mmol/L Chloride Level 105 98-107 mmol/L Carbon Dioxide Level 14 21-32 mmol/L Anion Gap 17.0 3-11 mmol/L Blood Urea Nitrogen 10 7-18 mg/dl Creatinine 1.20 0.60-1.40 mg/dl Est Creatinine Clear Calc Drug Dose 94.2 ml/min Estimated GFR () 93.5 Estimated GFR (Non- 80.7 BUN/Creatinine Ratio 8.6 10-20 Random Glucose 246 70-99 mg/dl Calcium Level 7.4 8.5-10.1 mg/dl Test 06/26/17 22:49 06/26/17 23:44 06/26/17 23:59 06/27/17 00:45 Range/Units Bedside Glucose 213 221 217 70-99 mg/dl Venous Blood pH 7.35 7.36-7.41 Sodium Level 138 136-145 mmol/L Potassium Level 3.8 3.5-5.1 mmol/L Chloride Level 105 98-107 mmol/L Carbon Dioxide Level 18 21-32 mmol/L Anion Gap 15.0 3-11 mmol/L Blood Urea Nitrogen 9 7-18 mg/dl Creatinine 1.25 0.60-1.40 mg/dl Est Creatinine Clear Calc Drug Dose 90.4 ml/min Estimated GFR () 89.0 Estimated GFR (Non- 76.8 BUN/Creatinine Ratio 7.5 10-20 Random Glucose 233 70-99 mg/dl Calcium Level 7.5 8.5-10.1 mg/dl Test 06/27/17 02:30 06/27/17 04:25 06/27/17 04:28 06/27/17 06:33 Range/Units Bedside Glucose 219 214 218 70-99 mg/dl Venous Blood pH 7.36 7.36-7.41 Sodium Level 141 136-145 mmol/L Potassium Level 3.7 3.5-5.1 mmol/L Chloride Level 108 98-107 mmol/L Carbon Dioxide Level 21 21-32 mmol/L Anion Gap 12.0 3-11 mmol/L Blood Urea Nitrogen 11 7-18 mg/dl Creatinine 1.27 0.60-1.40 mg/dl Est Creatinine Clear Calc Drug Dose 89.0 ml/min Estimated GFR () 87.3 Estimated GFR (Non- 75.3 BUN/Creatinine Ratio 8.4 10-20 Random Glucose 226 70-99 mg/dl Calcium Level 7.7 8.5-10.1 mg/dl Beta-Hydroxybutyric Acid 22.96 0.2-2.81 mg/dL Test 06/27/17 08:05 06/27/17 08:59 06/27/17 10:00 06/27/17 10:07 Range/Units Venous Blood pH 7.40 7.36-7.41 Sodium Level 139 136-145 mmol/L Potassium Level 3.6 3.5-5.1 mmol/L Chloride Level 108 98-107 mmol/L Carbon Dioxide Level 24 21-32 mmol/L Anion Gap 8.0 3-11 mmol/L Blood Urea Nitrogen 11 7-18 mg/dl Creatinine 1.20 0.60-1.40 mg/dl Est Creatinine Clear Calc Drug Dose 94.2 ml/min Estimated GFR () 93.5 Estimated GFR (Non- 80.7 BUN/Creatinine Ratio 8.9 10-20 Random Glucose 276 70-99 mg/dl Calcium Level 8.0 8.5-10.1 mg/dl Bedside Glucose 332 233 70-99 mg/dl Urine Color YELLOW Urine Appearance CLEAR CLEAR Urine pH 6.0 4.5-7.5 Urine Specific [place] 1.031 1.000-1.030 Urine Protein NEG NEG Urine Glucose (UA) 3+ NEG Urine Ketones 2+ NEG Urine Occult Blood NEG NEG Urine Nitrite NEG NEG Urine Bilirubin NEG NEG Urine Urobilinogen NEG NEG Urine Leukocyte Esterase NEG NEG Test 06/27/17 10:55 06/27/17 12:00 06/27/17 12:05 06/27/17 13:12 Range/Units Bedside Glucose 189 221 209 70-99 mg/dl Venous Blood pH 7.46 7.36-7.41 Sodium Level 139 136-145 mmol/L Potassium Level 3.5 3.5-5.1 mmol/L Chloride Level 106 98-107 mmol/L Carbon Dioxide Level 26 21-32 mmol/L Anion Gap 7.0 3-11 mmol/L Blood Urea Nitrogen 10 7-18 mg/dl Creatinine 1.15 0.60-1.40 mg/dl Est Creatinine Clear Calc Drug Dose 98.3 ml/min Estimated GFR () 98.4 Estimated GFR (Non- 84.9 BUN/Creatinine Ratio 9.0 10-20 Random Glucose 195 70-99 mg/dl Calcium Level 8.1 8.5-10.1 mg/dl Test 06/27/17 14:11 06/27/17 15:03 06/27/17 16:02 06/27/17 18:01 Range/Units Bedside Glucose 174 161 164 166 70-99 mg/dl
[2017-06-27] MEDS: INSULIN REGULAR 250 UNITS in SODIUM CHLORIDE 0.9% 250ML 250 ML IV SCH ×2 (20:11→22:26)
[2017-06-28] MEDS: INSULIN REGULAR 250 UNITS in SODIUM CHLORIDE 0.9% 250ML 250 ML IV SCH ×7 (00:15→14:09)
[2017-06-28] MEDS: D5NSS + 20MEQ KCL 1,000 ML IV SCH ×2 (01:21→07:51)
[2017-06-28 07:16] VITALS: BP 106/71; PULSE 78; TEMP 36.6; O2SAT 99
[2017-06-28 07:20] LABS: BLOOD UREA NITROGEN 9 mg/dl (7-18); BUN/CREATININE RATIO 16.1 (10-20); CALCIUM 7.9 mg/dl (8.5-10.1); CARBON DIOXIDE 27 mmol/L (21-32); CHLORIDE 111 mmol/L (98-107); CREATININE 0.55 mg/dl (0.60-1.40); GLUCOSE 129 mg/dl (70-99); PHOSPHORUS 3.9 mg/dl (2.5-4.9); POTASSIUM 3.2 mmol/L (3.5-5.1); SODIUM 145 mmol/L (136-145)
[2017-06-28 07:43] VITALS: O2SAT 99
[2017-06-28] MEDS: HEPARIN SOD 5000 UNIT/0.5 ML CARP SQ SCH (07:51)
[2017-06-28] MEDS: POT PHOSPHATE MONOBASIC W/ SOD TAB PO SCH ×3 (07:51→17:04)
[2017-06-28] MEDS: NICOTINE 21 MG/24 HR TDSY TD SCH (07:52)
[2017-06-28] MEDS ORDERED: INSULIN GLARGINE SOLOSTAR 100 UNITS/ML 3 ML PEN SC ONE (08:00)
[2017-06-28] MEDS: INSULIN ASPART 100 UNITS/ML 3 ML PEN SC SCH ×2 (08:32→12:19)
[2017-06-28 11:03] VITALS: BP 169/81; PULSE 101; TEMP 37.5; O2SAT 95
[2017-06-28 11:19] VITALS: BP 126/79; PULSE 76; TEMP 36.5; O2SAT 98
--- NOTE | 2017-06-28 12:49 | Pharmacy Progress Note ---
Glycemic: Assessment & Plan Date of Service Jun 28, 2017. Assessment & Plan Outpatient Anti-diabetic Regimen: * Lantus 10-15 units SQ BID (depending on fasting BSG) * Novolog TID sliding scale (for BSG > 250mg/dL, carb ratio 1:10) * A1c = 12.7 % (06/26/17) * As evidenced w/ A1c, patient is poorly compliant with outpatient regimen ASSESSMENT: * Lantus was initiated yesterday, with drip continuation. Drip continues at ~ 1.4 units/hr, even after a couple of Lantus doses. * Will continue the drip until it is held per the infusion adjustment calculator. * Once drip is off, nursing to notify pharmacy. * Would recommend switching IVF to a non-dextrose containing formula once insulin infusion is discontinued. PLAN FOR INPATIENT GLYCEMIC CONTROL: * Continue IV insulin infusion, until instructed to HOLD by calculator * Goal Range 110 - 180 mg/dl * LANTUS 15 units SQ BID * give 1/2 dose for BSG less than 110mg/dL * Correctional Insulin with NOVOLOG per scale ACHS or Q6hrs while NPO * As per insulin infusion adjustment calculator * When converted to SQ insulin: - Goal Range: Low 110 mg/dL - High 150 mg/dL - Correction Factor: 25 mg/dL/unit - Nutritional / Prandial insulin per carb ratio of 1 unit per 8 grams CHO consumed * Please note that the plan above was derived based on current level of insulin resistance and hospital stress. These recommendations are appropriate for inpatient admission only. Plan of care upon discharge will need to be reassessed to avoid potential outpatient hypo/hyperglycemia. Thank you.
[2017-06-28] MEDS ORDERED: POTASSIUM CHLORIDE 10 MEQ TABCR PO ONE (13:15)
[2017-06-28] MEDS ORDERED: hydrOXYzine HCL 25 MG TAB PO STA (14:17)
[2017-06-28] MEDS ORDERED: SODIUM CHLOR 0.45% + 20MEQ KCL 1,000 ML IV SCH (14:30)
[2017-06-28 15:24] VITALS: BP 116/78; PULSE 82; TEMP 36.4; O2SAT 99
[2017-06-28] MEDS ORDERED: INSULIN ASPART 100 UNITS/ML 3 ML PEN SC SCH (16:30)
--- NOTE | 2017-06-28 17:40 | Progress Note ---
Subjective Date of Service: Jun 28, 2017. Subjective Pt evaluation today including: conversation w/ patient, physical exam, lab review, review of studies, review of inpatient medication list Saw/examined the patient in room 262 Very eager to go home States his symptoms have resolved; he is now eating with no nausea, which was the symptom that brought him in He states he has been under a lot of stress recently and because of that, he feels like his sugars are not controlled States he will stay compliant with his regimen Problem List Medical Problems: (1) DKA (diabetic ketoacidoses) Status: Acute (2) Noncompliance with medication regimen Status: Acute (3) Noncompliance with medications Status: Acute (4) Sebaceous cyst Status: Acute Review of Systems Constitutional: No fever, No chills Respiratory: No cough, No sputum, No shortness of breath Cardiac: No chest pain Abdomen: No pain, No nausea (resolved), No vomiting, No diarrhea Heme: No abnormal bleeding/bruising Medications Current Inpatient Medications Medications (Trade) Dose Ordered Sig/Isac Route Start Time Stop Time Status Last Admin Dose Admin Miscellaneous Information (Consult Glycemic Management Pharmacy) 1 ea UD PRN N/A 06/26/17 18:23 07/26/17 18:22 Heparin Sodium (Porcine) (Heparin Sq 5000 Unit/0.5ml) 5,000 unit Q12 SQ 06/26/17 21:00 07/26/17 20:59 Acetaminophen (Tylenol Tab) 650 mg Q4H PRN PO 06/26/17 16:00 07/26/17 15:59 Al Hydrox/Mg Hydrox/Simethicone (Maalox Max Susp) 15 ml Q4H PRN PO 06/26/17 16:00 07/26/17 15:59 Magnesium Hydroxide (Milk Of Magnesia Susp) 30 ml Q12H PRN PO 06/26/17 16:00 07/26/17 15:59 Ondansetron HCl (Zofran Inj) 4 mg Q6H PRN IV 06/26/17 16:00 07/26/17 15:59 Glucose (Glucose 40% Gel) 15-30 GRAMS 15 GRAMS... UD PRN PO 06/26/17 17:00 07/26/17 16:59 Glucose (Glucose Chew Tab) 4-8 Tablets 4 Tabl... UD PRN PO 06/26/17 17:00 07/26/17 16:59 Dextrose (Dextrose 50% 50ML Syringe) 25-50ML OF 50% DW IV FOR... UD PRN IV 06/26/17 17:00 07/26/17 16:59 Glucagon (Glucagon Inj) 1 mg UD PRN SQ 06/26/17 17:00 07/26/17 16:59 Potassium/ Phosphorus/Sodium (Phospha 250 Neutral 155-852-130 Mg) 1 tab QID PO 06/26/17 19:00 07/26/17 18:59 06/28/17 17:04 1 TAB Nicotine (Nicoderm Cq 21MG Patch) 1 patch QAM TD 06/26/17 19:45 07/26/17 19:44 06/28/17 07:52 1 PATCH Miscellaneous (Remove Nicoderm Patch) 1 ea HS N/A 06/27/17 21:00 07/27/17 20:59 06/27/17 21:09 1 EA Insulin Glargine (Lantus Solostar Pen) 15 units BID SC 06/28/17 21:00 07/28/17 20:59 Potassium Chloride/Sodium Chloride 1,000 ml @ 125 mls/hr Q8H IV 06/28/17 14:30 07/28/17 14:29 06/28/17 14:41 125 MLS/HR Insulin Aspart (novoLOG ASPART) SLIDING SCALE ACHS DE 06/28/17 16:30 07/28/17 16:29 06/28/17 17:06 2 UNITS Insulin Aspart (novoLOG ASPART) SLIDING SCALE DAILY@0000,0400 DE 06/29/17 00:00 07/29/17 00:00 Objective Vital Signs Date Time Temp Pulse Resp B/P (MAP) Pulse Ox O2 Delivery O2 Flow Rate FiO2 06/28/17 16:00 Room Air 06/28/17 15:24 36.4 82 18 116/78 (91) 99 06/28/17 11:19 36.5 76 15 126/79 (95) 98 Room Air 06/28/17 11:03 37.5 101 27 169/81 (110) 95 Nasal Cannula 3.0 06/28/17 08:00 Room Air 06/28/17 07:43 99 Room Air 06/28/17 07:16 36.6 78 16 106/71 (83) 99 Room Air 06/28/17 00:00 Room Air 06/27/17 23:19 36.7 94 20 112/75 (87) 99 Room Air 06/27/17 17:36 98 06/27/17 17:33 36.6 193 18 123/81 (95) 98 Room Air Physical Exam General Appearance: no apparent distress Respiratory/Chest: chest non-tender, lungs clear, normal breath sounds, no respiratory distress, no accessory muscle use Cardiovascular: regular rate, rhythm, no edema, no murmur Abdomen: normal bowel sounds, non tender, soft Extremities: normal inspection, no pedal edema 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iatric: no motor/sensory deficits, alert, normal mood/affect Laboratory Results Last 24 Hours Test 06/27/17 18:01 06/27/17 20:08 06/27/17 21:03 06/27/17 22:23 Bedside Glucose 166 mg/dl 187 mg/dl 166 mg/dl 140 mg/dl Test 06/27/17 23:05 06/28/17 00:05 06/28/17 01:09 06/28/17 02:03 Bedside Glucose 145 mg/dl 191 mg/dl 220 mg/dl 154 mg/dl Test 06/28/17 03:00 06/28/17 04:09 06/28/17 05:05 06/28/17 06:30 Bedside Glucose 141 mg/dl 138 mg/dl 133 mg/dl Sodium Level 145 mmol/L Potassium Level 3.2 mmol/L Chloride Level 111 mmol/L Carbon Dioxide Level 27 mmol/L Anion Gap 7.0 mmol/L Blood Urea Nitrogen 9 mg/dl Creatinine 0.55 mg/dl Est Creatinine Clear Calc Drug Dose 209.1 ml/min Estimated GFR () > 150.0 Estimated GFR (Non- 139.8 BUN/Creatinine Ratio 16.1 Random Glucose 129 mg/dl Calcium Level 7.9 mg/dl Phosphorus Level 3.9 mg/dl Magnesium Level 2.0 mg/dl Test 06/28/17 07:02 06/28/17 08:59 06/28/17 10:05 06/28/17 11:11 Bedside Glucose 124 mg/dl 212 mg/dl 152 mg/dl 141 mg/dl Test 06/28/17 11:49 06/28/17 13:05 06/28/17 14:02 06/28/17 14:58 Bedside Glucose 121 mg/dl 187 mg/dl 200 mg/dl 172 mg/dl Test 06/28/17 16:01 Bedside Glucose 128 mg/dl Assessment and Plan This is a 32 year old male with a PMH of Type 1 DM, tobacco use disorder presents with diabetic ketoacidosis DKA in the setting of DM1 seems to have a hx. of non-compliance Ha1c >12% given IV insulin infusion, IVFs now transitioned back to home regimen, Lantus 15 units BID and Novolog urged to stay compliant with medications close outpatient PCP follow-up should have an hub lead as outpatient Skin Rash possibly fungal in nature will try ketoconazole cream for now outpatient PCP follow-up Hyponatremia - resolved improved with IVFs Tobacco Use Disorder counseled on cessation nicotine patch DVT ppx subq heparin FULL CODE
[2017-06-28 17:42] VITALS: BP 116/78; PULSE 82; TEMP 36.4; O2SAT 99
[2017-06-28] MEDS ORDERED: INSDGIPEN SC (17:43)
[2017-06-28] MEDS ORDERED: NICO21DI4 TD (17:43)
[2017-06-28] MEDS ORDERED: NZRCR EXT (17:43)
[2017-06-28] MEDS ORDERED: KETOCONAZOLE 2% CR 15 GM TUBE EXT PRN (17:45)
--- NOTE | 2017-06-28 17:47 | Discharge Instructions ---
Discharge Instructions Date of Service Jun 28, 2017. Admission Reason for Admission: Dka (Diabetic Ketoacidoses) Discharge Discharge Diagnosis / Problem: DKA, Type 1 diabetes Discharge Goals Goal(s): Decrease discomfort, Improve function, Diagnostic testing, Therapeutic intervention Activity Recommendations Activity Limitations: resume your previous activity . Instructions / Follow-Up Instructions / Follow-Up Please follow-up with your primary care physician - you will get a phone call with a date/time * You will be on Lantus 15 units twice a day and continue the Novolog carb ratio you were already doing * Please stop smoking - you are given a script for a nicotine patch if you need it Current Hospital Diet Patient's current hospital diet: Diabetes Type 1 Diet Discharge Diet Recommended Diet: Diabetes Type 1 Diet Pending Studies Studies pending at discharge: no Laboratory Results Hemoglobin A1c Test 06/26/17 13:35 Range/Units Estimated Average Glucose 318 mg/dl Hemoglobin A1c 12.7 H 4.5-5.6 % Medical Emergencies . Who to Call and When: Medical Emergencies: If at any time you feel your situation is an emergency, please call 911 immediately. . Non-Emergent Contact Non-Emergency issues call your: Primary Care Provider . . "Provider Documentation" section prepared by Markus Mancia. . VTE Core Measure Inpt VTE Proph given/why not?: Unfractionated heparin SQ
--- NOTE | 2017-06-28 17:50 | Discharge Summary ---
Discharge Summary Date of Service Jun 28, 2017. Discharge Summary Admission Date: Jun 26, 2017 at 15:44 Discharge Date: Jun 28, 2017 Discharge Disposition: Home Principal Diagnosis: DKA Type 1 Diabetes, uncontrolled Tobacco use disorder Medication Reconciliation New Medications: Insulin Glargine (Lantus Solostar) 100 Unit/Ml Inj 15 UNITS SC BID for 30 Days, #5 PEN Ketoconazole (Ketoconazole) 45 Appln/15 Gm Cr 1 APPLN EXT BID PRN for rash for 30 Days, #1 TUBE Nicotine (Nicoderm Cq) 21 Mg/24 Hr Dis 21 MG TD QAM for 30 Days, #1 BOX Continued Medications: Insulin Aspart (Novolog Flexpen) 100 Units/Ml Inj Unknown Dose SC TID PER SLIDING SCALE, 10:1 Discontinued Medications: Insulin Glargine (Lantus Solostar) 100 Unit/Ml Inj Unknown Dose SC BID, PEN PER SC, 10:1 Admission Information HPI (per Admitting provider): 32 yo M with hx of Type 1 DM . poorly compliant with insulin regimen , presents to ED with complain of nausea , vomiting , abdominal pain , generalized body ache pt is a very poor historian -mentions he has been following instructions for low carb diet, taking his insulin yesterday morning he felt -nauseated, weak , having abdominal pain , fatigue - had to go to work , thinks that he took his insulin ( takes Lantus 10-15 U BID and Novolog 1: 10 unit could not tell me the range of the sliding scale ) checked his Blood sugar it was in 280 this morning -he felt worse , having generalized abdominal pain , nausea . vomiting , chills , severe fatigue . body ache arrived to ED , found to be in DKA , BSG > 350 with elevated anion gap of 22 , Beta Hydroxybutyrate > 100 pt started on IV insulin gtt , given IV fluid 1 liter bolus and continued IV Fluid resuscitation per DKA protocol repeat Lab shows: improved AG to 18 . BSG improved ~200 ; bicarb level improved 11-> 13 pt feels much better ,nausea has resolved, minimum abdominal discomfort finished dinner no fever or chills no complains of generalized body ache or pain Physical Exam (per Admitting): General Appearance: no apparent distress Head: normocephalic, atraumatic Eyes: normal inspection, PERRL, EOMI, sclerae normal ENT: hearing grossly normal, TMs normal Neck: supple, no adenopathy, thyroid normal, no carotid bruits, trachea midline Respiratory/Chest: chest non-tender, lungs clear, normal breath sounds, no respiratory distress Cardiovascular: regular rate, rhythm, no edema Abdomen/GI: normal bowel sounds, non tender, soft Extremities/Musculoskelatal: normal capillary refill, no pedal edema, normal range of motion 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: no motor/sensory deficits, alert, normal mood/affect, oriented x 3 Skin: normal color, warm/dry, no rash Hospital Course This is a 32 year old male with a PMH of Type 1 DM, tobacco use disorder presents with diabetic ketoacidosis DKA in the setting of DM1 seems to have a hx. of non-compliance Ha1c >12% given IV insulin infusion, IVFs now transitioned back to home regimen, Lantus 15 units BID and Novolog urged to stay compliant with medications close outpatient PCP follow-up should have an crop duster helper as outpatient Skin Rash possibly fungal in nature will try ketoconazole cream for now outpatient PCP follow-up Hyponatremia - resolved improved with IVFs Tobacco Use Disorder counseled on cessation nicotine patch DVT ppx subq heparin FULL CODE Total time spent on discharge = 35 minutes This includes examination of the patient, discharge planning, medication reconciliation, and communication with other providers. Discharge Instructions Please follow-up with your primary care physician - you will get a phone call with a date/time * You will be on Lantus 15 units twice a day and continue the Novolog carb ratio you were already doing * Please stop smoking - you are given a script for a nicotine patch if you need it
--- NOTE | 2017-06-28 19:39 | DERMATOLOGY CONSULTATION ---
DATE OF CONSULTATION: 06/28/2017 CHIEF COMPLAINT: Rash. HISTORY OF PRESENT ILLNESS: The patient is a pleasant 32-year-old male with a history of type 1 diabetes, who was admitted from the Emergency Department to [facility] for diabetic ketoacidosis. He had an unrelated complaint while admitted, which was a red scaly rash in his abdomen that they also found on his back. It is asymptomatic. Speaking to patient, it has been present about 6 months. He has been asymptomatic for that course. He was unaware that it was even on his back and he has not used any medications to treat it. The patient is currently doing better from his diabetes standpoint and is due to be discharged shortly. PAST MEDICAL HISTORY: Type 1 diabetes, hypertension. FAMILY HISTORY: Diabetes, heart disease, hypertension, kidney disease, kidney stones, and seizures. SOCIAL HISTORY: Smoking status, every day smoker. Occasional marijuana use. Single, lives with family and he is employed at [employer]. ALLERGIES: METHYL SALICYLATE AND CODEINE. HOME MEDICATIONS: NovoLog insulin and Lantus insulin. REVIEW OF SYSTEMS: The patient currently feels well overall without any systemic complaints. He is due to go home shortly. The rash is asymptomatic, not itchy, not stinging. PHYSICAL EXAMINATION GENERAL: Well-appearing male in no acute distress, oriented x3, good mood. SKIN: Limited skin exam performed per patient request of face, neck, chest, back, abdomen, upper extremities bilaterally including arms, forearms, hands, fingers. He has type 1-2 skin. He has pinkish scaly patches on his upper chest, his abdomen and on the V of his back consistent with tinea versicolor. IMPRESSION AND PLAN: Tinea versicolor, discussed with patient. Printed out information for him to take home on this disorder. I spoke to his primary team and recommend they send him home with ketaconazole cream and after use twice a day to involve all of these areas for the next 2 weeks. I did discuss this can be recurrent and he may wish to use Selsun Blue as a body wash during the treatment time and then once a week to prevent recurrence. I will sign off for now. Thank you for the consultation. Please do not hesitate to call me with any further questions. RENEE
[2017-06-28] MEDS ORDERED: INSULIN GLARGINE SOLOSTAR 100 UNITS/ML 3 ML PEN SC SCH (21:00)
[2017-06-29] MEDS ORDERED: INSULIN ASPART 100 UNITS/ML 3 ML PEN SC SCH
== END 2017-06-28 18:34 | disposition home or self-care (01) | DRG 638 ==
LOC: C.EDB 12:26 → C.2T 15:44 → CANBEDREQ 16:14 → ENRESERV 17:07 → C.MS2W 06-27 17:25
PROVIDERS: ADMIT Hospitalist; ATTEND Hospitalist
DX: E10.10 Type 1 diabetes mellitus with ketoacidosis without coma (principal); E87.1 Hypo-osmolality and hyponatremia; B36.0 Pityriasis versicolor; I10 Essential (primary) hypertension; F17.210 Nicotine dependence, cigarettes, uncomplicated; Z91.14 Patient's other noncompliance with medication regimen; Z83.3 Family history of diabetes mellitus; Z82.49 Family history of ischemic heart disease and other diseases of the circulatory system; Z84.1 Family history of disorders of kidney and ureter

== ENCOUNTER 2017-08-08 12:55 | Emergency (ER) | payer OTHER ==
[~2017-08-08] VITALS: Ht 180.3 cm; Wt 79.0 kg
[~2017-08-08 12:55] MED LIST changes: +INSDGIPEN SC; -NICO21DI4 EXT; +NICO21DI4 TD; +NVLGI/PEN SC; +NZRCR EXT
[2017-08-08 12:57] VITALS: TEMP 36.7; Ht 180.3 cm; Wt 79.0 kg
[2017-08-08] MEDS ORDERED: SODIUM CHLORIDE 0.9% 1000ML 2,000 ML IV STA (13:41)
--- NOTE | 2017-08-08 13:55 | EMERGENCY ROOM VISIT NOTE ---
History First contact with patient: 13:24 Chief Complaint: VOMITING Stated Complaint: VOMITING - DIARRHEA Nursing Triage Summary: pt reports he is a diabetic out of diabetic supplies no script until seen on . has tea having dioarrhea and vomiting for past 3 days , vomiting has now stopped but diarrhea continues History of Present Illness The patient is a 32 year old male who presents to the Emergency Room with complaints of vomiting, diarrhea, and body aches for the past 3 days. He states his vomiting has somewhat improved and he has been able to tolerate oral fluids, but he continues to have diarrhea several times a day. He reports chills, but no known fevers. He is a type I diabetic diagnosed proximally 3 years ago, and states that he recently ran out of his insulin 4 days ago. He states that he was trying to get an appointment with his PCP, but was not able to get in until 08/22, and states that they did not give him refills on his insulin. Patient was recently admitted to the hospital for []DKA at the end of June, and states that he was supposed to have a follow-up appointment in July, but he was unable to get off of work and so he missed that appointment. He does report some possible sick contacts at work with similar symptoms. He denies any headaches, vision changes, confusion, chest pain, shortness of breath, cough, sore throat, back pain, abdominal pain, blood in his vomit or stool, dysuria or hematuria. He states he has been peeing frequently, states he has been trying to push fluids to stay hydrated. Review of Systems A complete 10 point review of systems was reviewed with the patient with pertinent positives and negatives as per history of present illness. All else were negative. Past Medical/Surgical History Medical Problems: (1) Dental Disorder Nos (2) Diabetes (3) Hypertension (4) Major depressive disorder, recurrent episode (5) Male Genital Dis Nos (6) Rectal & Anal Hemorrhage (7) Tobacco abuse disorder Family History Cancer Diabetes mellitus Heart disease Hypertension Kidney disease Kidney stones Seizures Social History Smoking Status: Current Every Day Smoker Drug Use: marijuana Marital Status: single Housing Status: lives with family Occupation Status: employed Current/Historical Medications Scheduled Insulin Aspart (Novolog Flexpen), Unknown Dose SC TID Insulin Glargine (Lantus Solostar), 15 UNITS SC BID Mirtazapine (Remeron), 0.5 TAB PO QPM Allergies Reviewed in chart Physical Exam Vital Signs Date Time Temp Pulse Resp B/P (MAP) Pulse Ox O2 Delivery O2 Flow Rate FiO2 08/08/17 17:45 80 18 122/69 96 08/08/17 15:42 87 18 125/63 96 Room Air 08/08/17 14:11 90 08/08/17 12:57 36.7 108 18 119/79 96 Room Air Physical Exam CONSTITUTIONAL: No acute distress, nontoxic appearing. Dehydrated. Alert and oriented X 4 with normal affect. HEENT: Normocephalic, atraumatic. Pupils equal, round and reactive to light, EOMI. TMs normal. Pharynx normal. Dry mucous membranes. NECK: Supple, full active range of motion without discomfort. No cervical adenopathy. RESPIRATORY: Clear to auscultation bilaterally with no wheezing, crackles, rhonchi or stridor. Equal expansion bilaterally. CARDIOVASCULAR: Tachycardic. Regular rhythm with no murmurs, rubs or gallops. Normal peripheral perfusion. No edema. GASTROINTESTINAL: Soft, nontender, nondistended. Hyperactive bowel sounds present in all quadrants. MUSCULOSKELETAL: Full range of motion of all joints without discomfort. INTEGUMENTARY: No rash or other significant dermatologic conditions noted. NEUROLOGIC: Cranial nerves II-XII grossly intact. No focal neurologic deficits noted. Normal strength, normal sensation, normal speech, normal gait, normal balance. Medical Decision & Procedures ER Provider Diagnostic Interpretation: CHEST 2 VIEWS ROUTINE CLINICAL HISTORY: Diabetic ketoacidosis. Vomiting and diarrhea. COMPARISON STUDY: Chest radiograph June 26, 2017. FINDINGS: Lung volumes are normal. There is no consolidation or evidence of pulmonary edema. No pneumothorax or pleural effusion is noted. Cardiomediastinal silhouette is normal. IMPRESSION: No acute cardiopulmonary findings. Laboratory Results 08/08/17 13:50 Red Blood Count 4.77, Mean Corpuscular Volume 89.5, Mean Corpuscular Hemoglobin 34.4, Mean Corpuscular Hemoglobin Concent 38.4, Neutrophils (%) (Auto) 65.4, Lymphocytes (%) (Auto) 18.5, Monocytes (%) (Auto) 12.7, Eosinophils (%) (Auto) 2.6, Basophils (%) (Auto) 0.6, Neutrophils # (Auto) 3.03, Lymphocytes # (Auto) 0.86, Monocytes # (Auto) 0.59, Eosinophils # (Auto) 0.12, Basophils # (Auto) 0.03 08/08/17 13:50 08/08/17 15:36 Test 08/08/17 13:50 08/08/17 14:10 08/08/17 15:36 08/08/17 16:35 White Blood Count 4.64 K/uL (4.8-10.8) Red Blood Count 4.77 M/uL (4.7-6.1) Hemoglobin 16.4 g/dL (14.0-18.0) Hematocrit 42.7 % (42-52) Mean Corpuscular Volume 89.5 fL (80-100) Mean Corpuscular Hemoglobin 34.4 pg (25-34) Mean Corpuscular Hemoglobin Concent 38.4 g/dl (32-36) Platelet Count 141 K/uL (130-400) Neutrophils (%) (Auto) 65.4 % Lymphocytes (%) (Auto) 18.5 % Monocytes (%) (Auto) 12.7 % Eosinophils (%) (Auto) 2.6 % Basophils (%) (Auto) 0.6 % Neutrophils # (Auto) 3.03 K/uL (1.4-6.5) Lymphocytes # (Auto) 0.86 K/uL (1.2-3.4) Monocytes # (Auto) 0.59 K/uL (0.11-0.59) Eosinophils # (Auto) 0.12 K/uL (0-0.5) Basophils # (Auto) 0.03 K/uL (0-0.2) Immature Granulocyte % (Auto) 0.2 % Immature Granulocyte # (Auto) 0.01 K/uL (0.00-0.02) Red Blood Cell Morphology Unremarkable Urine Color YELLOW Urine Appearance CLEAR (CLEAR) Urine pH 5.0 (4.5-7.5) Urine Specific [employer] 1.040 (1.000-1.030) Urine Protein NEG (NEG) Urine Glucose (UA) 3+ (NEG) Urine Ketones 1+ (NEG) Urine Occult Blood NEG (NEG) Urine Nitrite NEG (NEG) Urine Bilirubin NEG (NEG) Urine Urobilinogen NEG (NEG) Urine Leukocyte Esterase NEG (NEG) Anion Gap 10.0 mmol/L (3-11) Est Creatinine Clear Calc Drug Dose 111.6 ml/min Estimated GFR () 112.5 Estimated GFR (Non- 97.0 BUN/Creatinine Ratio 17.6 (10-20) Calcium Level 8.1 mg/dl (8.5-10.1) Total Bilirubin 0.9 mg/dl (0.2-1) Alanine Aminotransferase (ALT/SGPT) 30 U/L (12-78) Alkaline Phosphatase 114 U/L (45-117) Total Protein 6.5 gm/dl (6.4-8.2) Albumin 3.6 gm/dl (3.4-5.0) Lipase 135 U/L (73-393) Venous Blood pH 7.37 (7.36-7.41) Venous Blood Partial Pressure CO2 48 mmHg (38.0-50.0) Venous Blood Partial Pressure O2 47 mmHg Venous Blood HCO3 27 mmol/L Venous Blood Oxygen Saturation 81.6 % Venous Blood Base Excess 1.1 mEq/L Lactic Acid Level 0.5 mmol/L (0.4-2.0) Direct Bilirubin 0.1 mg/dl (0-0.2) Aspartate Amino Transf (AST/SGOT) 14 U/L (15-37) Beta-Hydroxybutyric Acid 43.54 mg/dL (0.2-2.81) Bedside Glucose 511 mg/dl (70-99) Medications Administered Medications (Trade) Dose Ordered Sig/Isac Route Start Time Stop Time Status Last Admin Dose Admin Sodium Chloride 2,000 ml @ 999 mls/hr Q2H1M STAT IV 08/08/17 13:41 08/08/17 15:41 DC 08/08/17 14:00 999 MLS/HR Insulin Human Regular (novoLIN-R) 10 units NOW STAT SC 08/08/17 14:56 08/08/17 14:59 DC 08/08/17 15:40 10 UNITS Insulin Human Regular (novoLIN-R U-100 PER UNIT) 6 units NOW ONCE SQ 08/08/17 16:42 08/08/17 17:09 DC 08/08/17 17:18 6 UNITS Medical Decision CC: Patient presenting with complaint of vomiting, diarrhea, body aches Interpretation of Labs: No leukocytosis, no anemia, significant hyperglycemia, hyponatremia most likely secondary to the hyperglycemia, no other significant electrolyte abnormalities, normal renal function, normal liver enzymes and lipase. Serum ketones mildly elevated. Lactic acid within normal limits. VBG shows pH within normal limits. UA specific gravity and positive for small ketones, no infection. Differential Diagnosis: Includes, but not limited to DKA, hyperglycemia, dehydration, other electrolyte abnormality, UTI, gastroenteritis, food poisoning , among others. Medication Reconciliation: I attest that I have personally reviewed the patient' s current medication list. Vital signs review: I reviewed the patient's vital signs and interpret them as follows: T: Afebrile; BP: Normotensive; HR: Tachycardic; RR: Within normal limits; Pulse Ox: Within normal limits on room air. Blood pressure screening: The patient was found to have normal blood pressure on screening and does not require follow-up for repeat blood pressure check. Summary: Patient was evaluated at bedside, history and physical exam performed. Patient is alert and oriented, in no acute distress, resting calmly in the stretcher. Patient appears moderately dehydrated and is noted to be tachycardic. Bedside glucose measurement too high to read. Orders were placed at bedside for labs, UA and culture, IV fluid bolus, EKG, chest x-ray to evaluate for DKA. Patient discussed with Dr. Caro, who agrees with my assessment and plan. Labs reviewed as above, significant hyperglycemia and evidence of dehydration, but no acidosis or significant ketosis. EKG normal sinus rhythm with no acute ischemic changes and no peaked T waves. Chest x-ray unremarkable. Patient was given subcutaneous insulin, with some improvement and downtrending of his blood glucose. He has not had any persistent vomiting or diarrhea while in the emergency department. He is tolerating PO fluids well. His vitals have remained stable. Given how well the patient is appearing and is relatively stable lab values, I feel that he can be safely discharged home. Leslie with case management was involved, and was able to arrange sooner follow- up appointment for the patient in 2 days. He was strongly urged to keep this appointment to establish care and continue management of his diabetes, as well as get refills of his insulin. The patient verbalizes understanding of this plan, and was comfortable with discharge. Patient was also given return precautions should his symptoms worsen, he verbalized understanding. Patient was discharged home in stable condition and ambulatory. Head Trauma GCS Score: 15 Medication Reconcilliation Current Medication List: was personally reviewed by me Blood Pressure Screening Patient's blood pressure: Normal blood pressure Impression Primary Impression: Hyperglycemia Additional Impression: Nausea, vomiting, and diarrhea Departure Information Dispostion Home / Self-Care Condition GOOD Referrals No Doctor, Assigned (PCP) Patient Instructions ED Dehydration, ED Diet Vomiting Diarrhea, ED Hyperglycemia Diabetic, My [facility] Additional Instructions You have been treated in the Emergency Department today for Dehydration. Laboratory results have ruled out any emergent reasons for further evaluation or admission. It is ESSENTIAL that you maintain adequate hydration with oral fluids, especially while you are having diarrhea and increased amounts of urination. Water is the ideal replacement for lost fluids. You should initially sip at the water to help facilitate increased intestinal absorption rate and to decrease the possibility of nausea/vomiting. Avoid foods and drinks that are high in sugar, as this will make her blood sugar levels or worse. You have been scheduled for an appointment on August 10 at 12: 45PM. Please keep this appointment to follow up on management of your diabetes and have refills of your medications. Return to the Emergency Department if your current symptoms worsen, including abdominal pain, severe vomiting or diarrhea, fevers >101.5, increased thirst, weakness, dizziness or passing out, confusion, sluggishness, or decreased urine output. Work Instructions Return To Work: 1 day [employer]
[2017-08-08 14:18] LABS: URINE APPEARANCE CLEAR (CLEAR); URINE BILIRUBIN NEG (NEG); URINE COLOR YELLOW; URINE NITRITE NEG (NEG); UROBILINOGEN NEG (NEG)
[2017-08-08 14:22] LABS: MANUAL MICROSCOPIC REQUIRED? NO; REVIEW REQ? NO
[2017-08-08] MEDS ORDERED: MIRT15TA3 PO (14:41)
[2017-08-08 14:42] LABS: VEN BLD GAS O2 SATURATION 81.6 %; VEN BLOOD GAS BASE EXCESS 1.1 mEq/L
[2017-08-08 14:52] LABS: HEMATOCRIT 42.7 % (42-52); MEAN CELL VOLUME 89.5 fL (80-100); MEAN CORPUSCULAR HEMOGLOBIN 34.4 pg (25-34); MEAN CORPUSCULAR HGB CONC 38.4 g/dl (32-36); PLATELET COUNT 141 K/uL (130-400); RED BLOOD COUNT 4.77 M/uL (4.7-6.1); WHITE BLOOD COUNT 4.64 K/uL (4.8-10.8)
[2017-08-08] MEDS ORDERED: INSULIN HUMAN REGULAR SC STA ×2 (14:56→16:42)
--- NOTE | 2017-08-08 15:13 | DIAGNOSTIC IMAGING REPORT ---
CHEST 2 VIEWS ROUTINE CLINICAL HISTORY: Diabetic ketoacidosis. Vomiting and diarrhea. COMPARISON STUDY: Chest radiograph June 26, 2017. FINDINGS: Lung volumes are normal. There is no consolidation or evidence of pulmonary edema. No pneumothorax or pleural effusion is noted. Cardiomediastinal silhouette is normal. IMPRESSION: No acute cardiopulmonary findings. Electronically signed by: Luiz Davey M.D. 08/08/2017 3:11 PM Dictated Date/Time: 08/08/2017 3:11 PM
[2017-08-08 15:24] LABS: ALKALINE PHOSPHATASE 114 U/L (45-117); ALT/SGPT 30 U/L (12-78); BLOOD UREA NITROGEN 18 mg/dl (7-18); BUN/CREATININE RATIO 17.6 (10-20); CALCIUM 8.1 mg/dl (8.5-10.1); CARBON DIOXIDE 26 mmol/L (21-32); CHLORIDE 90 mmol/L (98-107); CREATININE 1.03 mg/dl (0.60-1.40); GLUCOSE 664 mg/dl (70-99); SODIUM 126 mmol/L (136-145)
[2017-08-08] MEDS ORDERED: NovoLIN-R INSULIN PER UNIT CHARGE ONE (15:38)
[2017-08-08 15:41] LABS: BASO % 0.6 %; BASO ABS # 0.03 K/uL (0-0.2); COMPLETE YES; EOS % 2.6 %; IG% 0.2 %; LYMPH % 18.5 %; LYMPH ABS # 0.86 K/uL (1.2-3.4); MONO % 12.7 %; NEUT % 65.4 %
[2017-08-08 16:36] LABS: POTASSIUM 4.2 mmol/L (3.5-5.1)
[2017-08-08 16:42] LABS: BETA-HYDROXYBUTYRATE 43.54 mg/dL (0.2-2.81)
[2017-08-08] MEDS ORDERED: NovoLIN-R INSULIN PER UNIT CHARGE SQ ONE (16:42)
[2017-08-08 17:45] VITALS: BP 122/69; PULSE 80; O2SAT 96
== END 2017-08-08 18:02 | disposition home or self-care (01) ==
LOC: C.EDB 12:56 → C.EDA 18:02
DX: E10.65 Type 1 diabetes mellitus with hyperglycemia (principal); R11.2 Nausea with vomiting, unspecified; R19.7 Diarrhea, unspecified; R52 Pain, unspecified; E10.9 Type 1 diabetes mellitus without complications; Z91.138 Patient's unintentional underdosing of medication regimen for other reason; R35.0 Frequency of micturition; I10 Essential (primary) hypertension; F32.9 Major depressive disorder, single episode, unspecified; Z79.899 Other long term (current) drug therapy; Z87.19 Personal history of other diseases of the digestive system; Z82.0 Family history of epilepsy and other diseases of the nervous system; Z82.49 Family history of ischemic heart disease and other diseases of the circulatory system; Z83.3 Family history of diabetes mellitus; Z84.1 Family history of disorders of kidney and ureter; F17.200 Nicotine dependence, unspecified, uncomplicated

== ENCOUNTER 2017-09-17 20:50 | Inpatient (IN) | payer OTHER ==
[~2017-09-17] VITALS: Ht 180.3 cm; Wt 80.9 kg
[~2017-09-17 20:50] MED LIST changes: +MIRT15TA3 PO; -NICO21DI4 TD; -NZRCR EXT
[2017-09-17] MEDS ORDERED: ONDANSETRON INJ 2 MG/ML 2 ML VIAL IV STA (21:22)
[2017-09-17] MEDS ORDERED: SODIUM CHLORIDE 0.9% 1000ML 2,000 ML IV STA (21:22)
--- NOTE | 2017-09-17 21:24 | EMERGENCY ROOM VISIT NOTE ---
History Report prepared by [place]: Maryann Luis Under the Supervision of: Dr. Rufino Raymundo D.O. First contact with patient: 21:17 Chief Complaint: ABDOMINAL PAIN Stated Complaint: PAIN IN JOINTS,STOMACH MOSTLY ON LEFT Nursing Triage Summary: pt c/o constipation, took mag citrate feels dehydrated, all joint hurt and abd pain thinks he is in dka bsg was 243 History of Present Illness The patient is a 32 year old male who presents to the Emergency Room with complaints of persistent abdominal pain for the past 5 days. He rates his discomfort as an 8/10. He reports he had been taking an antidepressant that made him "extremely constipated" recently. He drank a bottle of Magnesium Citrate and the next morning woke up with severe abdominal pain. The patient admits to a history of type 1 diabetes. His last BSG was 243. He has been nauseous for the past few days, but has not vomited. He has never undergone abdominal surgery before. He also complains of back pain. 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 A total of 10 systems reviewed and were otherwise negative. Past Medical & Surgical Medical Problems: (1) Dental Disorder Nos (2) Diabetes (3) Hypertension (4) Major depressive disorder, recurrent episode (5) Male Genital Dis Nos (6) Rectal & Anal Hemorrhage (7) Tobacco abuse disorder Family History Cancer Diabetes mellitus Heart disease Hypertension Kidney disease Kidney stones Seizures Social History Smoking Status: Current Every Day Smoker Drug Use: marijuana Marital Status: single Housing Status: lives with family Occupation Status: employed Current/Historical Medications Scheduled Insulin Aspart (Novolog Flexpen), 1 DOSE SC TIDM Insulin Glargine (Basaglar Kwikpen), 15 UNITS SC AMPM Trazodone Hcl (Trazodone), 50 MG PO HS Allergies Coded Allergies: Methyl Salicylate (Unverified Allergy, Unknown, HIVES, "FEELS LIKE FIRE ON MY SKIN", 08/08/17) Codeine (Verified Adverse Reaction, Intermediate, BECOMES VERY AGGRESSIVE , 08/08/17) Physical Exam Vital Signs Date Time Temp Pulse Resp B/P (MAP) Pulse Ox O2 Delivery O2 Flow Rate FiO2 09/17/17 22:34 83 18 142/83 99 Room Air 09/17/17 21:05 36.4 92 18 128/85 99 Room Air Physical Exam GENERAL: Patient is awake, alert, very anxious appearing and appears to be in significant pain. EYES: The conjunctivae are clear. The pupils are round and reactive. EARS, NOSE, MOUTH AND THROAT: The nose is without any evidence of any deformity. Mucous membranes are dry, tongue is midline NECK: The neck is nontender and supple. RESPIRATORY: Normal respiratory effort is noted there is no evidence of wheezing rhonchi or rales CARDIOVASCULAR: Heart sounds are tachycardic but regular. No definite murmur noted to auscultation. GASTROINTESTINAL: The abdomen is moderately distended and diffusely tender. No specific guarding or rigidity noted. PELVIS: The Pelvis is stable. No tenderness to palpation is noted. BACK: Bilateral CVA tenderness to percussion. No midline tenderness noted. ROM appeared intact. MUSCULOSKELETAL/EXTREMITIES: There is no evidence of gross deformity full range of motion is noted in the hips and shoulders SKIN: There is no obvious evidence of any rash. There are no petechiae, pallor or cyanosis noted. NEUROLOGIC: Patient is awake alert and oriented x3 strength is symmetric patellar reflexes are 2+ bilaterally Medical Decision & Procedures ER Provider Diagnostic Interpretation: Radiology results as stated below per my review and radiologist interpretation: CHEST ONE VIEW PORTABLE CLINICAL HISTORY: ABDOMINAL PAIN/GI pain COMPARISON STUDY: No previous studies for comparison. FINDINGS: The bones soft tissues and hemidiaphragms are normal. The cardiomediastinal silhouette is normal. The lungs are clear. The pulmonary vasculature is normal. IMPRESSION: Negative chest. The above report was generated using voice recognition software. It may contain grammatical, syntax or spelling errors. Electronically signed by: Milo Souza M.D. 09/17/2017 9:50 PM ABD/PELVIS NO IV OR ORAL CONT CT DOSE: 367.54 mGy.cm HISTORY: Pain lower pain, flank pain TECHNIQUE: Multiaxial CT images of the abdomen and pelvis were performed without contrast. A dose lowering technique was utilized adhering to the principles of ALARA. COMPARISON STUDY: None. FINDINGS: Lung bases are clear. Liver spleen and pancreas appear unremarkable. There is an increase in gastric content. Kidneys are negative for calcification or hydronephrosis. Small bowel is complex fluid filled. The colonic pattern is unremarkable. There is no free fluid within the pelvic cul-de-sac. Bladder is midline. The appendix is normal IMPRESSION: 1. Mild small bowel enteritis. 2. Otherwise negative study. The above report was generated using voice recognition software. It may contain grammatical, syntax or spelling errors. Electronically signed by: Milo Souza M.D. 09/17/2017 10:04 PM Laboratory Results 09/17/17 21:10 Red Blood Count 5.14, Mean Corpuscular Volume 86.6, Mean Corpuscular Hemoglobin 33.9, Mean Corpuscular Hemoglobin Concent 39.1, Mean Platelet Volume 9.6, Neutrophils (%) (Auto) 68.9, Lymphocytes (%) (Auto) 18.7, Monocytes (%) (Auto) 10.7, Eosinophils (%) (Auto) 1.2, Basophils (%) (Auto) 0.3, Neutrophils # (Auto ) 4.01, Lymphocytes # (Auto) 1.09, Monocytes # (Auto) 0.62, Eosinophils # (Auto ) 0.07, Basophils # (Auto) 0.02 09/17/17 21:10 Test 09/17/17 21:10 09/17/17 21:20 09/17/17 21:34 09/17/17 22:05 White Blood Count 5.82 K/uL (4.8-10.8) Red Blood Count 5.14 M/uL (4.7-6.1) Hemoglobin 17.4 g/dL (14.0-18.0) Hematocrit 44.5 % (42-52) Mean Corpuscular Volume 86.6 fL (80-100) Mean Corpuscular Hemoglobin 33.9 pg (25-34) Mean Corpuscular Hemoglobin Concent 39.1 g/dl (32-36) Platelet Count 175 K/uL (130-400) Mean Platelet Volume 9.6 fL (7.4-10.4) Neutrophils (%) (Auto) 68.9 % Lymphocytes (%) (Auto) 18.7 % Monocytes (%) (Auto) 10.7 % Eosinophils (%) (Auto) 1.2 % Basophils (%) (Auto) 0.3 % Neutrophils # (Auto) 4.01 K/uL (1.4-6.5) Lymphocytes # (Auto) 1.09 K/uL (1.2-3.4) Monocytes # (Auto) 0.62 K/uL (0.11-0.59) Eosinophils # (Auto) 0.07 K/uL (0-0.5) Basophils # (Auto) 0.02 K/uL (0-0.2) RDW Standard Deviation 37.5 fL (36.4-46.3) RDW Coefficient of Variation 11.8 % (11.5-14.5) Immature Granulocyte % (Auto) 0.2 % Immature Granulocyte # (Auto) 0.01 K/uL (0.00-0.02) Red Blood Cell Morphology Unremarkable Anion Gap 12.0 mmol/L (3-11) Est Creatinine Clear Calc Drug Dose 91.7 ml/min Estimated GFR () 89.0 Estimated GFR (Non- 76.8 BUN/Creatinine Ratio 11.7 (10-20) Calcium Level 8.5 mg/dl (8.5-10.1) Total Bilirubin 0.9 mg/dl (0.2-1) Direct Bilirubin 0.1 mg/dl (0-0.2) Aspartate Amino Transf (AST/SGOT) 11 U/L (15-37) Alanine Aminotransferase (ALT/SGPT) 19 U/L (12-78) Alkaline Phosphatase 92 U/L (45-117) Total Protein 6.7 gm/dl (6.4-8.2) Albumin 3.8 gm/dl (3.4-5.0) Lipase 122 U/L (73-393) Beta-Hydroxybutyric Acid 34.15 mg/dL (0.2-2.81) Bedside Glucose > 600 mg/dl (70-99) Venous Blood pH 7.40 (7.36-7.41) Venous Blood Partial Pressure CO2 36 mmHg (38.0-50.0) Venous Blood Partial Pressure O2 46 mmHg Venous Blood HCO3 22 mmol/L Venous Blood Oxygen Saturation 83.2 % Venous Blood Base Excess -2.7 mEq/L Urine Color YELLOW Urine Appearance CLEAR (CLEAR) Urine pH 5.5 (4.5-7.5) Urine Specific [place] 1.036 (1.000-1.030) Urine Protein NEG (NEG) Urine Glucose (UA) 3+ (NEG) Urine Ketones 2+ (NEG) Urine Occult Blood NEG (NEG) Urine Nitrite NEG (NEG) Urine Bilirubin NEG (NEG) Urine Urobilinogen NEG (NEG) Urine Leukocyte Esterase NEG (NEG) Laboratory results per my review. Medications Administered Medications (Trade) Dose Ordered Sig/Isac Route Start Time Stop Time Status Last Admin Dose Admin Ondansetron HCl (Zofran Inj) 4 mg NOW STAT IV 09/17/17 21:22 09/17/17 21:23 DC 09/17/17 21:30 4 MG Sodium Chloride 2,000 ml @ 999 mls/hr Q2H1M STAT IV 09/17/17 21:22 09/17/17 23:22 DC 09/17/17 21:30 999 MLS/HR Ketorolac Tromethamine (Toradol Inj) 30 mg NOW STAT IV 09/17/17 22:21 09/17/17 22:22 DC 09/17/17 22:29 30 MG Acetaminophen (Tylenol Tab) 1,000 mg NOW STAT PO 09/17/17 22:21 09/17/17 22:22 DC 09/17/17 22:29 1,000 MG Insulin Human Regular (novoLIN-R U-100 PER UNIT) 4 units NOW STAT IV 09/17/17 22:50 09/17/17 22:51 DC 09/17/17 23:06 4 UNITS ED Course 2118: The patient was evaluated in room B2. A complete history and physical examination were performed. 2121: NSS 200 ml @ 999 mls/hr IV, Zofran 4 mg IV. 2220: Nursing informed me the patient would like more medication for pain. 2221: Tylenol 1000 mg PO, Toradol 30 mg IV. 2250: Novolin-R 100 per unit 4 units IV. 2332: I discussed the patients case with Dr. Kim, [facility] Hospitalist. The patient will be further evaluated. Medical Decision Prior records/ancillary studies reviewed. Triage Nursing notes reviewed. The patient's history was concerning for abdominal pain. Differential diagnosis: Etiologies such as appendicitis, diverticulitis, PUD, biliary pathology, UTI, pancreatitis, obstruction, mesenteric ischemia, aortic pathology, infections, inflammatory bowel disease, renal colic, as well as others were entertained. The patient is a 32-year-old male who has a history of insulin-dependent diabetes who presented to the emergency department for an evaluation of abdominal pain. The patient was found have hyperglycemia with a significant level of beta hydroxybutyrate. The patient does not have acidosis at this time. The patient was treated with IV fluids and IV insulin. The patient was reevaluated multiple times. His condition appears to be significantly improved however he does have continued abdominal pain and I'm concerned that he would not be over manage this episode of hyperglycemia at home. He does have a history of diabetic ketoacidosis and I feel that if he were to try to manage this at home he may return in worsening condition and in DKA. I discussed the patient's laboratory and radiographic studies with him. I also discussed his case with the on-call [facility] [address] hospitalist. They've agreed to evaluate the patient in the emergency department for further management and disposition. Medication Reconcilliation Current Medication List: was personally reviewed by me Blood Pressure Screening Patient's blood pressure: Elevated blood pressure Blood pressure disposition: Elevated BP felt to be situational Consults Time Called: 2331 [facility]ing Phys[facility] Returned Call: [phone] I discussed the patients case with Carmel Prather. The patient will be further evaluated. Impression Primary Impression: Hyperglycemia Additional Impressions: Abdominal pain Dehydration Scribe Attestation The scribe's documentation has been prepared under my direction and personally reviewed by me in its entirety. I confirm that the note above accurately reflects all work, treatment, procedures, and medical decision making performed by me. Departure Information Dispostion Being Evaluated By Hospitalist Referrals Kylah Orellana D.O. (PCP) Patient Instructions My [facility] Problem Qualifiers
[2017-09-17] MEDS ORDERED: TRAZ50TA35 PO (21:41)
[2017-09-17] MEDS ORDERED: INSU100I23 SC (21:41)
--- NOTE | 2017-09-17 21:51 | DIAGNOSTIC IMAGING REPORT ---
CHEST ONE VIEW PORTABLE CLINICAL HISTORY: ABDOMINAL PAIN/GI pain COMPARISON STUDY: No previous studies for comparison. FINDINGS: The bones soft tissues and hemidiaphragms are normal. The cardiomediastinal silhouette is normal. The lungs are clear. The pulmonary vasculature is normal. IMPRESSION: Negative chest. The above report was generated using voice recognition software. It may contain grammatical, syntax or spelling errors. Electronically signed by: Milo Souza M.D. 09/17/2017 9:50 PM Dictated Date/Time: 09/17/2017 9:50 PM
[2017-09-17 21:58] LABS: ALBUMIN 3.8 gm/dl (3.4-5.0); CALCIUM 8.5 mg/dl (8.5-10.1); CREATININE 1.25 mg/dl (0.60-1.40); POTASSIUM 4.4 mmol/L (3.5-5.1); TOTAL PROTEIN 6.7 gm/dl (6.4-8.2)
--- NOTE | 2017-09-17 22:05 | DIAGNOSTIC IMAGING REPORT ---
ABD/PELVIS NO IV OR ORAL CONT CT DOSE: 367.54 mGy.cm HISTORY: Pain lower pain, flank pain TECHNIQUE: Multiaxial CT images of the abdomen and pelvis were performed without contrast. A dose lowering technique was utilized adhering to the principles of ALARA. COMPARISON STUDY: None. FINDINGS: Lung bases are clear. Liver spleen and pancreas appear unremarkable. There is an increase in gastric content. Kidneys are negative for calcification or hydronephrosis. Small bowel is complex fluid filled. The colonic pattern is unremarkable. There is no free fluid within the pelvic cul-de-sac. Bladder is midline. The appendix is normal IMPRESSION: 1. Mild small bowel enteritis. 2. Otherwise negative study. The above report was generated using voice recognition software. It may contain grammatical, syntax or spelling errors. Electronically signed by: Milo Souza M.D. 09/17/2017 10:04 PM Dictated Date/Time: 09/17/2017 10:01 PM
[2017-09-17] MEDS ORDERED: ACETAMINOPHEN 500 MG TAB PO STA (22:21)
[2017-09-17] MEDS ORDERED: KETOROLAC TROMETHAMINE 30 MG/ML VIAL IV STA (22:21)
[2017-09-17] MEDS ORDERED: NovoLIN-R INSULIN PER UNIT CHARGE IV STA (22:50)
[2017-09-17 23:14] LABS: HEMATOCRIT 44.5 % (42-52); HEMOGLOBIN 17.4 g/dL (14.0-18.0); MEAN CELL VOLUME 86.6 fL (80-100); MEAN CORPUSCULAR HEMOGLOBIN 33.9 pg (25-34); MEAN CORPUSCULAR HGB CONC 39.1 g/dl (32-36); MEAN PLATELET VOLUME 9.6 fL (7.4-10.4); PLATELET COUNT 175 K/uL (130-400); RED CELL DISTRIBUTION WIDTH CV 11.8 % (11.5-14.5); RED CELL DISTRIBUTION WIDTH SD 37.5 fL (36.4-46.3); WHITE BLOOD COUNT 5.82 K/uL (4.8-10.8)
[2017-09-17 23:16] LABS: BASO % 0.3 %; BASO ABS # 0.02 K/uL (0-0.2); EOS % 1.2 %; EOS ABS # 0.07 K/uL (0-0.5); IG# 0.01 K/uL (0.00-0.02); LYMPH % 18.7 %; LYMPH ABS # 1.09 K/uL (1.2-3.4); MONO % 10.7 %; MONO ABS # 0.62 K/uL (0.11-0.59); NEUT % 68.9 %; NEUT ABS # 4.01 K/uL (1.4-6.5)
[2017-09-18] VITALS (7 sets, daily range): BP systolic 110–139; BP diastolic 69–83; PULSE 81–90; TEMP 36.4–37; O2SAT 96–99; BMI 24.8
[2017-09-18] MEDS ORDERED: PHARMACY GLYCEMIC MGMT CONSULT PRN (00:06)
[2017-09-18] MEDS ORDERED: INSULIN IV INFUSION PROTOCOL STA (00:12)
[2017-09-18] MEDS ORDERED: SENNA 8.6 MG TAB PO STA (00:14)
[2017-09-18] MEDS ORDERED: DOCUSATE SODIUM 100 MG CAP PO ONE (00:15)
[2017-09-18] MEDS ORDERED: MODERATE STRESS LEVEL STA (00:20)
--- NOTE | 2017-09-18 00:21 | History and Physical ---
History & Physical Date & Time of Service: Sep 18, 2017 at 00:15 Chief Complaint: Pain In Joints,Stomach Mostly On Left Primary Care Physician: Kylah Orellana D.O. History of Present Illness Source: patient 32 year old M who reports of late onset Type 1 diabetes made last year, with FH of diabetes Type 2 of his mother, who presents to the ED with abdominal pain and found to have serum glucose over 600. Patient was given 4 units Regular insulin IV and presented to hospitalist physician for admission of hyperglycemia with lab evidence of mild DKA. Patient seen and examined at bedside. Generally well appearing. Speaking in full sentences. Reports of having constipation x 3 days. Reports pain of lower abdomen towards bladder. Denies dysuria. Past Medical/Surgical History Medical Problems: (1) Diabetes Status: Chronic (2) Hypertension Status: Chronic Family History Cancer Diabetes mellitus Heart disease Hypertension Kidney disease Kidney stones Seizures Social History Smoking Status: Current Every Day Smoker Drug Use: marijuana Marital Status: single Housing status: lives with family Occupational Status: employed Immunizations History of Influenza Vaccine: Unknown History of Tetanus Vaccine?: Unknown History of Pneumococcal: Unknown Multi-Drug Resistant Organisms History of MDRO: No Allergies Coded Allergies: Methyl Salicylate (Unverified Allergy, Unknown, HIVES, "FEELS LIKE FIRE ON MY SKIN", 08/08/17) Codeine (Verified Adverse Reaction, Intermediate, BECOMES VERY AGGRESSIVE , 08/08/17) Home Medications Scheduled Insulin Aspart (Novolog Flexpen), 1 DOSE SC TIDM Insulin Glargine (Basaglar Kwikpen), 15 UNITS SC AMPM Trazodone Hcl (Trazodone), 50 MG PO HS Review of Systems Constitutional: No fever, No weakness Eyes: No worsening of vision, No eye pain ENT: No hearing loss, No nasal symptoms, No sore throat, No trouble swallowing Respiratory: No cough, No sputum, No wheezing, No shortness of breath, No dyspnea on exertion, No dyspnea at rest, No hemoptysis, No problem reported Cardiovascular: No chest pain, No edema, No palpitations Abdomen: + pain, + constipation, No nausea, No vomiting, No diarrhea Musculoskeletal: No joint pain, No muscle pain, No swelling, No calf pain, No problem reported Genitourinary - Male: No dysuria Neurologic: No paralysis, No numbness/tingling Endocrine: No fatigue Hematologic / Lymphatic: No abnormal bleeding/bruising Integumentary: No rash, No itch Physical Exam Vital Signs Date Time Temp Pulse Resp B/P (MAP) Pulse Ox O2 Delivery O2 Flow Rate FiO2 09/17/17 22:34 83 18 142/83 99 Room Air 09/17/17 21:05 36.4 92 18 128/85 99 Room Air General Appearance: WD/WN, no apparent distress Head: normocephalic, atraumatic Eyes: normal inspection, EOMI, sclerae normal ENT: normal ENT inspection, hearing grossly normal, pharynx normal Neck: supple, no adenopathy, no JVD, trachea midline Respiratory/Chest: chest non-tender, lungs clear, normal breath sounds, no respiratory distress, no accessory muscle use Cardiovascular: regular rate, rhythm, no edema, no JVD, no murmur, normal peripheral pulses Abdomen/GI: normal bowel sounds, soft, no organomegaly, no pulsatile mass, + pertinent finding (no acute tenderness on palpation but patient reports lower abdomen feels some discomfort when palpated) Back: normal inspection, no muscle spasm, normal range of motion Extremities/Musculoskelatal: normal inspection, no calf tenderness, no pedal edema, normal range of motion, non-tender 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: writing tutor II-XII nml as tested, no motor/sensory deficits, alert, normal mood/affect, oriented x 3 Skin: normal color, warm/dry, no rash Diagnostics Laboratory Results Results Past 24 Hours Test 09/17/17 21:10 09/17/17 21:20 09/17/17 21:34 09/17/17 22:05 Range/Units White Blood Count 5.82 4.8-10.8 K/uL Red Blood Count 5.14 4.7-6.1 M/uL Hemoglobin 17.4 14.0-18.0 g/dL Hematocrit 44.5 42-52 % Mean Corpuscular Volume 86.6 80-100 fL Mean Corpuscular Hemoglobin 33.9 25-34 pg Mean Corpuscular Hemoglobin Concent 39.1 32-36 g/dl Platelet Count 175 130-400 K/uL Mean Platelet Volume 9.6 7.4-10.4 fL Neutrophils (%) (Auto) 68.9 % Lymphocytes (%) (Auto) 18.7 % Monocytes (%) (Auto) 10.7 % Eosinophils (%) (Auto) 1.2 % Basophils (%) (Auto) 0.3 % Neutrophils # (Auto) 4.01 1.4-6.5 K/uL Lymphocytes # (Auto) 1.09 1.2-3.4 K/uL Monocytes # (Auto) 0.62 0.11-0.59 K/uL Eosinophils # (Auto) 0.07 0-0.5 K/uL Basophils # (Auto) 0.02 0-0.2 K/uL RDW Standard Deviation 37.5 36.4-46.3 fL RDW Coefficient of Variation 11.8 11.5-14.5 % Immature Granulocyte % (Auto) 0.2 % Immature Granulocyte # (Auto) 0.01 0.00-0.02 K/uL Red Blood Cell Morphology Unremarkable Sodium Level 127 136-145 mmol/L Potassium Level 4.4 3.5-5.1 mmol/L Chloride Level 94 98-107 mmol/L Carbon Dioxide Level 21 21-32 mmol/L Anion Gap 12.0 3-11 mmol/L Blood Urea Nitrogen 15 7-18 mg/dl Creatinine 1.25 0.60-1.40 mg/dl Est Creatinine Clear Calc Drug Dose 91.7 ml/min Estimated GFR () 89.0 Estimated GFR (Non- 76.8 BUN/Creatinine Ratio 11.7 10-20 Random Glucose 637 70-99 mg/dl Calcium Level 8.5 8.5-10.1 mg/dl Total Bilirubin 0.9 0.2-1 mg/dl Direct Bilirubin 0.1 0-0.2 mg/dl Aspartate Amino Transf (AST/SGOT) 11 15-37 U/L Alanine Aminotransferase (ALT/SGPT) 19 12-78 U/L Alkaline Phosphatase 92 45-117 U/L Total Protein 6.7 6.4-8.2 gm/dl Albumin 3.8 3.4-5.0 gm/dl Lipase 122 73-393 U/L Beta-Hydroxybutyric Acid 34.15 0.2-2.81 mg/dL Bedside Glucose > 600 70-99 mg/dl Venous Blood pH 7.40 7.36-7.41 Venous Blood Partial Pressure CO2 36 38.0-50.0 mmHg Venous Blood Partial Pressure O2 46 mmHg Venous Blood HCO3 22 mmol/L Venous Blood Oxygen Saturation 83.2 % Venous Blood Base Excess -2.7 mEq/L Urine Color YELLOW Urine Appearance CLEAR CLEAR Urine pH 5.5 4.5-7.5 Urine Specific [place] 1.036 1.000-1.030 Urine Protein NEG NEG Urine Glucose (UA) 3+ NEG Urine Ketones 2+ NEG Urine Occult Blood NEG NEG Urine Nitrite NEG NEG Urine Bilirubin NEG NEG Urine Urobilinogen NEG NEG Urine Leukocyte Esterase NEG NEG Impression Assessment and Plan Hyperglycemia / DKA due to history of Type 1 diabetes (as per patient was late onset) -admission serum glucose > 600 -given 4 units regular insulin IV in the ER -pharmacy glycemic consult requested to start IV insulin -IV fluids -q2 hour fingerstick glucose for now -recheck electrolytes if need to replete serum potassium while patient is on IV insulin therapy -patient reports that at home he is on short acting insulin 15 to 20 units with his meals on average and usually takes long acting insulin 15 units in the AM and 15 units at night -likely will need adjustments to home medication regimen upon discharge Constipation / Abdominal pain -Mild small bowel enteritis on CT abdomen -give senna/colace -abdominal pain may improve when glucose controlled and constipation improves History of Depression -Patient is no longer taking Venlafaxine 37.5 mg because he believes this medication for causing constipation - hold Venlafaxine Patient reports he takes Trazodone for sleep - continue for now Patient reports allergy to codeine which makes him combative Patient denies recent substance use, used marijuana in the past but no longer DVT ppx Full Code PCP: Dr. Nelson Telemetry monitoring for now. Can discontinue telemetry once glucose is controlled and no gross electrolyte abnormalities or cardiac events Level of Care Telemetry Resuscitation Status FULL RESUSCITATION VTE Prophylaxis VTE Risk Assessment Done? Y/N: Yes Risk Level: Moderate
[2017-09-18] MEDS ORDERED: GLUCOSE 10 TABS/TUBE PO PRN (00:30)
[2017-09-18] MEDS ORDERED: GLUCOSE 40% GEL 15 GM TUBE PO PRN (00:30)
[2017-09-18] MEDS ORDERED: DEXTROSE 50% 50 ML SYR IV PRN (00:30)
[2017-09-18] MEDS ORDERED: GLUCAGON FOR INJ 1 MG VIAL SQ PRN (00:30)
[2017-09-18] MEDS ORDERED: ACETAMINOPHEN 325 MG TAB PO PRN (01:00)
[2017-09-18] MEDS: INSULIN REGULAR 250 UNITS in SODIUM CHLORIDE 0.9% 250ML 250 ML IV SCH ×7 (01:52→13:37)
[2017-09-18 02:32] LABS: CREATININE 0.97 mg/dl (0.60-1.40)
[2017-09-18 02:33] LABS: ALBUMIN 3.2 gm/dl (3.4-5.0); CALCIUM 7.5 mg/dl (8.5-10.1); TOTAL PROTEIN 5.8 gm/dl (6.4-8.2)
[2017-09-18] MEDS ORDERED: DKA GOAL RANGE 150-250 mg/dl 1 EA ONE (02:45)
[2017-09-18] MEDS ORDERED: SODIUM CHLORIDE 0.9% 1000ML 1,000 ML IV SCH (03:00)
[2017-09-18 08:41] LABS: ALBUMIN 3.1 gm/dl (3.4-5.0); CREATININE 0.86 mg/dl (0.60-1.40); POTASSIUM 3.2 mmol/L (3.5-5.1)
[2017-09-18 08:44] LABS: TOTAL PROTEIN 5.8 gm/dl (6.4-8.2)
[2017-09-18] MEDS: INSULIN ASPART 100 UNITS/ML 3 ML PEN SC SCH ×4 (08:56→20:54)
[2017-09-18] MEDS ORDERED: INSULIN PROTOCOL GOAL RANGE ONE (09:00)
[2017-09-18] MEDS: SENNA 8.6 MG TAB PO SCH (09:00)
[2017-09-18] MEDS: DOCUSATE SODIUM 100 MG CAP PO SCH ×2 (09:00→20:02)
[2017-09-18 09:28] LABS: HEMATOCRIT 42.5 % (42-52); HEMOGLOBIN 15.7 g/dL (14.0-18.0); MEAN CELL VOLUME 87.3 fL (80-100); MEAN CORPUSCULAR HEMOGLOBIN 32.2 pg (25-34); MEAN CORPUSCULAR HGB CONC 36.9 g/dl (32-36); PLATELET COUNT 165 K/uL (130-400); WHITE BLOOD COUNT 4.31 K/uL (4.8-10.8)
[2017-09-18 09:31] LABS: BASO % 0.2 %; BASO ABS # 0.01 K/uL (0-0.2); EOS % 5.3 %; EOS ABS # 0.23 K/uL (0-0.5); IG# 0.02 K/uL (0.00-0.02); LYMPH % 36.9 %; LYMPH ABS # 1.59 K/uL (1.2-3.4); MONO % 11.1 %; MONO ABS # 0.48 K/uL (0.11-0.59); NEUT ABS # 1.98 K/uL (1.4-6.5)
--- NOTE | 2017-09-18 10:02 | Pharmacy Progress Note ---
Glycemic Control Intl Consult Date of Service Sep 18, 2017. Scope Glycemic Pharmacist consulted for glycemic control and to write orders per [facility] inpatient glycemic control protocol Objective Weight (Kilograms): 80.700 Accuchecks BSG (last 24hrs): Test 09/17/17 21:10 09/17/17 21:20 09/17/17 22:45 09/18/17 01:36 Random Glucose 637 mg/dl (70-99) 416 mg/dl (70-99) Bedside Glucose > 600 mg/dl (70-99) 559 mg/dl (70-99) Test 09/18/17 02:30 09/18/17 03:36 09/18/17 04:30 09/18/17 05:33 Bedside Glucose 383 mg/dl (70-99) 354 mg/dl (70-99) 289 mg/dl (70-99) 275 mg/dl (70-99) Test 09/18/17 06:33 09/18/17 07:00 09/18/17 07:33 09/18/17 08:42 Bedside Glucose 266 mg/dl (70-99) 194 mg/dl (70-99) 307 mg/dl (70-99) Random Glucose 222 mg/dl (70-99) Laboratory Data (last 24hrs) Test 09/17/17 21:10 09/18/17 01:36 09/18/17 07:00 Anion Gap 12.0 mmol/L 11.0 mmol/L 8.0 mmol/L BUN/Creatinine Ratio 11.7 16.7 14.9 Blood Urea Nitrogen 15 mg/dl 16 mg/dl 13 mg/dl Creatinine 1.25 mg/dl 0.97 mg/dl 0.86 mg/dl Potassium Level 4.4 mmol/L 4.0 mmol/L 3.2 mmol/L Sodium Level 127 mmol/L 132 mmol/L 137 mmol/L White Blood Count 5.82 K/uL 4.31 K/uL Red Blood Count 5.14 M/uL 4.87 M/uL Hemoglobin 17.4 g/dL 15.7 g/dL Hematocrit 44.5 % 42.5 % Mean Corpuscular Volume 86.6 fL 87.3 fL Mean Corpuscular Hemoglobin 33.9 pg 32.2 pg Mean Corpuscular Hemoglobin Concent 39.1 g/dl 36.9 g/dl Platelet Count 175 K/uL 165 K/uL Mean Platelet Volume 9.6 fL Neutrophils (%) (Auto) 68.9 % 46.0 % Lymphocytes (%) (Auto) 18.7 % 36.9 % Monocytes (%) (Auto) 10.7 % 11.1 % Eosinophils (%) (Auto) 1.2 % 5.3 % Basophils (%) (Auto) 0.3 % 0.2 % Neutrophils # (Auto) 4.01 K/uL 1.98 K/uL Lymphocytes # (Auto) 1.09 K/uL 1.59 K/uL Monocytes # (Auto) 0.62 K/uL 0.48 K/uL Eosinophils # (Auto) 0.07 K/uL 0.23 K/uL Basophils # (Auto) 0.02 K/uL 0.01 K/uL HbA1c * A1c = 12.7 % (06/26/17) Recent Pertinent Medications Outpatient Anti-diabetic Regimen: * Lantus 10-15 units SQ BID (depending on fasting BSG) * Novolog TID sliding scale (for BSG > 250mg/dL, carb ratio 1:10) * Questionable compliance with the above regimen The patient is currently receiving: * IV insulin infusion per protocol. * Goal range = 150 - 250 mg/dl for DKA * Prandial insulin: Per carb ratio as determined by IV insulin infusion drip rate Assessment & Plan ASSESSMENT: * Type 1 diabetic (vs NYDIA?) known to the Glycemic Service from prior admissions , recurrent DKA * Patient was diagnosed w/ Type 1 DM in November 2014 when he was 29 years old. After his diagnosis he has had 5 admissions to [facility] for DKA; 4 of which have been in the last year. * Patient admitted with mild DKA and abdominal pain last evening * Patient's labs have improved since admission last evening: * A --> 8 mmoL/L * CO2: 21 --> 25 mmoL/L * pH: 7.4 --> not repeated, WNL * BHBA: 34.15 --> N/A (resolved) * K+ 4.4 --> 4 --> 3.2 L Will change fluids to incorporate potassium to prevent further drop in K+. Will add 40meq KCL to IVF * NA+ 127 L --> 132 L --> 137 Will change fluids to 1/2 NSS * Plan is to continue the insulin drip until ketoacidosis resolves and patient able to tolerate a diet * Will initiate SQ basal bolus insulin regimen similar to previous admissions and titrate based on BSG trends. * Will overlap IV insulin infusion and SQ Lantus until drip held per calculator or 6 hours after the first lantus dose is given, whichever happens sooner. * Of note, this patient has been difficult to control on prior admissions due to c/o hypoglycemic symptoms despite having BSGs in the non-hypoglycemic range. Will likely try to maintain BSGs in upper 100's. Last A1c was 06/26/17. Will check A1c with next lab draw to determine where his BSGs typically reside. PLAN FOR INPATIENT GLYCEMIC CONTROL: * Change fluids to 1/2 NSS + 40meq KCL @ 100 ml/hr * Since Potassium replacement is necessary, it is preferred to use 0.45% NaCl, if possible, to maintain isotonic solution (hypertonic fluid will not correct hyperosmolality) * Pt is tolerating PO - may not need to add dextrose to IVF. Will reassess if D5 needed based on lab trends and IV insulin infusion rate. D5W is necessary to allow continued insulin administration until ketonemia is controlled while at the same time avoiding hypoglycemia * Start to transition off of IV insulin infusion per protocol * Lower Goal Range from 150 - 250 to 140 - 180 mg/dl. * Basal insulin * Lantus 30 units SQ x 1 dose with lunch {this is the full 24hr dose}, then, continue outpatient dosing of Lantus 15 units SQ BID * Will use "scale" based Lantus dose for this evening to prevent under/ overdosage. * Bolus insulin * NovoLog per scale ACHS or Q6hrs while NPO * Goal Range: Low 120 mg/dL - High 150 mg/dL * Correction Factor: 20 mg/dL/unit * Nutritional / Prandial insulin per carb ratio of 1 unit per 7 grams CHO consumed * Please note that the plan above was derived based on current level of insulin resistance and hospital stress. These recommendations are appropriate for inpatient admission only. Plan of care upon discharge will need to be reassessed to avoid potential outpatient hypo/hyperglycemia. Thank you.
[2017-09-18] MEDS: POTASSIUM CHLORIDE INJ 40 MEQ in SODIUM CHLORIDE 0.45% 1000ML 1,000 ML IV SCH ×2 (10:11→20:02)
[2017-09-18] MEDS ORDERED: INSULIN GLARGINE SOLOSTAR 100 UNITS/ML 3 ML PEN SC SCH ×3 (11:00→21:00)
[2017-09-18] MEDS ORDERED: DC IV INSULIN INFUSION ONE (17:00)
[2017-09-18] MEDS ORDERED: TRAZODONE HCL 50 MG TAB PO SCH (21:00)
--- NOTE | 2017-09-18 23:29 | Progress Note ---
Medicine Progress Note Date & Time of Visit: Sep 18, 2017 at 16:30 . Subjective CC: Follow-up visit for DKA. HPI: Admitted last night with blood sugar of 637 + DKA. Placed on insulin infusion. Pharmacy consulted for glycemic management. Feels today. Blood sugars improved. Abdominal pain improved; no nausea, vomiting. ROS: General- no fever, no chills Resp- no cough; no shortness of breath Cardiac- no chest pain, no edema GI- as noted above in HPI - no dysuria . Objective Last 8 Hrs Date Time Temp Pulse Resp B/P (MAP) Pulse Ox O2 Delivery O2 Flow Rate FiO2 09/18/17 18:58 37.0 82 18 128/70 (89) 99 Room Air 09/18/17 16:00 Room Air 09/18/17 15:01 37.0 83 18 130/83 (99) 98 Room Air 09/18/17 12:00 Room Air 09/18/17 11:49 36.9 81 16 139/79 (99) 98 Room Air Physical Exam: General- no distress Lungs- clear Cardiovascular- RRR, no gallop; no JVD; no pretibial edema Abdomen- + BS, soft, nontender Extremities- no cyanosis; no calf tenderness Neuro- alert . Laboratory Results: Last 24 Hours Test 09/17/17 21:10 09/17/17 21:20 09/17/17 21:34 09/17/17 22:05 White Blood Count 5.82 K/uL Red Blood Count 5.14 M/uL Hemoglobin 17.4 g/dL Hematocrit 44.5 % Mean Corpuscular Volume 86.6 fL Mean Corpuscular Hemoglobin 33.9 pg Mean Corpuscular Hemoglobin Concent 39.1 g/dl Platelet Count 175 K/uL Mean Platelet Volume 9.6 fL Neutrophils (%) (Auto) 68.9 % Lymphocytes (%) (Auto) 18.7 % Monocytes (%) (Auto) 10.7 % Eosinophils (%) (Auto) 1.2 % Basophils (%) (Auto) 0.3 % Neutrophils # (Auto) 4.01 K/uL Lymphocytes # (Auto) 1.09 K/uL Monocytes # (Auto) 0.62 K/uL Eosinophils # (Auto) 0.07 K/uL Basophils # (Auto) 0.02 K/uL RDW Standard Deviation 37.5 fL RDW Coefficient of Variation 11.8 % Immature Granulocyte % (Auto) 0.2 % Immature Granulocyte # (Auto) 0.01 K/uL Red Blood Cell Morphology Unremarkable Sodium Level 127 mmol/L Potassium Level 4.4 mmol/L Chloride Level 94 mmol/L Carbon Dioxide Level 21 mmol/L Anion Gap 12.0 mmol/L Blood Urea Nitrogen 15 mg/dl Creatinine 1.25 mg/dl Est Creatinine Clear Calc Drug Dose 91.7 ml/min Estimated GFR () 89.0 Estimated GFR (Non- 76.8 BUN/Creatinine Ratio 11.7 Random Glucose 637 mg/dl Calcium Level 8.5 mg/dl Total Bilirubin 0.9 mg/dl Direct Bilirubin 0.1 mg/dl Aspartate Amino Transf (AST/SGOT) 11 U/L Alanine Aminotransferase (ALT/SGPT) 19 U/L Alkaline Phosphatase 92 U/L Total Protein 6.7 gm/dl Albumin 3.8 gm/dl Lipase 122 U/L Beta-Hydroxybutyric Acid 34.15 mg/dL Bedside Glucose > 600 mg/dl Venous Blood pH 7.40 Venous Blood Partial Pressure CO2 36 mmHg Venous Blood Partial Pressure O2 46 mmHg Venous Blood HCO3 22 mmol/L Venous Blood Oxygen Saturation 83.2 % Venous Blood Base Excess -2.7 mEq/L Urine Color YELLOW Urine Appearance CLEAR Urine pH 5.5 Urine Specific Power 1.036 Urine Protein NEG Urine Glucose (UA) 3+ Urine Ketones 2+ Urine Occult Blood NEG Urine Nitrite NEG Urine Bilirubin NEG Urine Urobilinogen NEG Urine Leukocyte Esterase NEG Test 09/17/17 22:45 09/18/17 01:36 09/18/17 02:30 09/18/17 03:36 Bedside Glucose 559 mg/dl 383 mg/dl 354 mg/dl Sodium Level 132 mmol/L Potassium Level 4.0 mmol/L Chloride Level 101 mmol/L Carbon Dioxide Level 20 mmol/L Anion Gap 11.0 mmol/L Blood Urea Nitrogen 16 mg/dl Creatinine 0.97 mg/dl Est Creatinine Clear Calc Drug Dose 118.1 ml/min Estimated GFR () 120.9 Estimated GFR (Non- 104.3 BUN/Creatinine Ratio 16.7 Random Glucose 416 mg/dl Calcium Level 7.5 mg/dl Total Bilirubin 0.5 mg/dl Aspartate Amino Transf (AST/SGOT) 11 U/L Alanine Aminotransferase (ALT/SGPT) 18 U/L Alkaline Phosphatase 84 U/L Total Protein 5.8 gm/dl Albumin 3.2 gm/dl Globulin 2.6 gm/dl Albumin/Globulin Ratio 1.2 Beta-Hydroxybutyric Acid 36.17 mg/dL Test 09/18/17 04:30 09/18/17 05:33 09/18/17 06:33 09/18/17 07:00 Bedside Glucose 289 mg/dl 275 mg/dl 266 mg/dl White Blood Count 4.31 K/uL Red Blood Count 4.87 M/uL Hemoglobin 15.7 g/dL Hematocrit 42.5 % Mean Corpuscular Volume 87.3 fL Mean Corpuscular Hemoglobin 32.2 pg Mean Corpuscular Hemoglobin Concent 36.9 g/dl Platelet Count 165 K/uL Neutrophils (%) (Auto) 46.0 % Lymphocytes (%) (Auto) 36.9 % Monocytes (%) (Auto) 11.1 % Eosinophils (%) (Auto) 5.3 % Basophils (%) (Auto) 0.2 % Neutrophils # (Auto) 1.98 K/uL Lymphocytes # (Auto) 1.59 K/uL Monocytes # (Auto) 0.48 K/uL Eosinophils # (Auto) 0.23 K/uL Basophils # (Auto) 0.01 K/uL Immature Granulocyte % (Auto) 0.5 % Immature Granulocyte # (Auto) 0.02 K/uL Red Blood Cell Morphology Unremarkable Sodium Level 137 mmol/L Potassium Level 3.2 mmol/L Chloride Level 104 mmol/L Carbon Dioxide Level 25 mmol/L Anion Gap 8.0 mmol/L Blood Urea Nitrogen 13 mg/dl Creatinine 0.86 mg/dl Est Creatinine Clear Calc Drug Dose 133.7 ml/min Estimated GFR () 134.9 Estimated GFR (Non- 116.4 BUN/Creatinine Ratio 14.9 Random Glucose 222 mg/dl Calcium Level 8.0 mg/dl Magnesium Level 2.0 mg/dl Total Bilirubin 0.4 mg/dl Aspartate Amino Transf (AST/SGOT) 6 U/L Alanine Aminotransferase (ALT/SGPT) 16 U/L Alkaline Phosphatase 74 U/L Total Protein 5.8 gm/dl Albumin 3.1 gm/dl Globulin 2.7 gm/dl Albumin/Globulin Ratio 1.2 Test 09/18/17 07:33 09/18/17 08:42 09/18/17 09:32 09/18/17 10:32 Bedside Glucose 194 mg/dl 307 mg/dl 331 mg/dl 240 mg/dl Test 09/18/17 11:34 09/18/17 12:36 09/18/17 13:34 09/18/17 14:37 Bedside Glucose 196 mg/dl 208 mg/dl 164 mg/dl 124 mg/dl Test 09/18/17 14:55 09/18/17 15:12 09/18/17 15:30 09/18/17 15:45 Bedside Glucose 99 mg/dl 113 mg/dl 114 mg/dl 116 mg/dl Test 09/18/17 16:02 09/18/17 16:20 Bedside Glucose 135 mg/dl 140 mg/dl Assessment & Plan DM TYPE 1 / DKA Blood sugars improving with insulin infusion. Precipitating etiology uncertain. Pharmacy consulted for management. Anticipate transition to SQ insulin later. Ongoing education / support. ABDOMINAL PAIN Resolved. VTE PROPHYLAXIS Not indicated. Very low risk of VTE per IMPROVE VTE risk model. Ambulate. DISPOSITION Expected discharge to home. Family Medicine follow-up with Dr. Orellana. . Current Inpatient Medications: Current Inpatient Medications Medications (Trade) Dose Ordered Sig/Isac Route Start Time Stop Time Status Last Admin Dose Admin Miscellaneous Information (Consult Glycemic Management Pharmacy) 1 ea DAILY PRN N/A 09/18/17 00:06 10/18/17 00:05 Senna (Senokot Tab) 8.6 mg QAM PO 09/18/17 09:00 10/18/17 08:59 Docusate Sodium (coLACE CAP) 100 mg BID PO 09/18/17 09:00 10/18/17 08:59 Glucose (Glucose 40% Gel) 15-30 GRAMS 15 GRAMS... UD PRN PO 09/18/17 00:30 10/18/17 00:29 Glucose (Glucose Chew Tab) 4-8 Tablets 4 Tabl... UD PRN PO 09/18/17 00:30 10/18/17 00:29 Dextrose (Dextrose 50% 50ML Syringe) 25-50ML OF 50% DW IV FOR... UD PRN IV 09/18/17 00:30 10/18/17 00:29 Glucagon (Glucagon Inj) 1 mg UD PRN SQ 09/18/17 00:30 10/18/17 00:29 Trazodone HCl (Desyrel Tab) 50 mg HS PO 09/18/17 21:00 10/18/17 20:59 Acetaminophen (Tylenol Tab) 325 mg Q4H PRN PO 09/18/17 01:00 10/18/17 00:59 Potassium Chloride 40 meq/ Sodium Chloride 1,020 ml @ 100 mls/hr [id number] IV 09/18/17 09:30 10/18/17 09:29 09/18/17 10:11 100 MLS/HR Insulin Aspart (novoLOG ASPART) SLIDING SCALE ACHS NE 09/18/17 16:30 10/18/17 16:29 09/18/17 17:13 5 UNITS Insulin Glargine (Lantus Solostar Pen) see protocol text TODAY@2100 NE 09/18/17 21:00 09/18/17 23:59 Insulin Aspart (novoLOG ASPART) SLIDING SCALE TODAY@0000,0400 NE 09/19/17 00:00 09/19/17 04:01
[2017-09-19] MEDS: INSULIN ASPART 100 UNITS/ML 3 ML PEN SC SCH ×4 (04:00→12:55)
[2017-09-19 04:36] VITALS: BP 124/75; PULSE 72; TEMP 36.5; O2SAT 96
[2017-09-19] MEDS: POTASSIUM CHLORIDE INJ 40 MEQ in SODIUM CHLORIDE 0.45% 1000ML 1,000 ML IV SCH (05:12)
[2017-09-19 06:33] LABS: CALCIUM 8.2 mg/dl (8.5-10.1); CREATININE 0.75 mg/dl (0.60-1.40); POTASSIUM 3.3 mmol/L (3.5-5.1)
[2017-09-19 06:53] VITALS: BP 125/75; PULSE 73; TEMP 36.8; O2SAT 96
[2017-09-19 07:09] LABS: HEMOGLOBIN A1C 10.7 % (4.5-5.6)
[2017-09-19 08:00] VITALS: O2SAT 96
[2017-09-19] MEDS ORDERED: POLYETHYLENE (MIRALAX) 17 GM PACK PO PRN (08:00)
[2017-09-19] MEDS: SENNA 8.6 MG TAB PO SCH (08:22)
[2017-09-19] MEDS: DOCUSATE SODIUM 100 MG CAP PO SCH (08:22)
[2017-09-19] MEDS ORDERED: INSULIN GLARGINE SOLOSTAR 100 UNITS/ML 3 ML PEN SC SCH (09:00)
--- NOTE | 2017-09-19 10:07 | Pharmacy Progress Note ---
Pharmacy Glycemic Short Note 2 Date of Service Sep 19, 2017. OUTPATIENT ANTIDIABETIC REGIMEN: * Lantus 10-15 units SQ BID (depending on fasting BSG) * Novolog TID sliding scale (for BSG > 250mg/dL, carb ratio 1:10) * Questionable compliance with the above regimen Item Value Date Time Insulin Dosing Bedside Glucose 275 mg/dl H 09/18/17 0533 IV insulin infusion Bedside Glucose 266 mg/dl H 09/18/17 0633 IV insulin infusion Bedside Glucose 194 mg/dl H 09/18/17 0733 IV insulin infusion Bedside Glucose 307 mg/dl H 09/18/17 0842 IV insulin infusion + 6 units Novolog CHO Coverage Bedside Glucose 331 mg/dl H 09/18/17 0932 IV insulin infusion Bedside Glucose 240 mg/dl H 09/18/17 1032 IV insulin infusion Bedside Glucose 196 mg/dl H 09/18/17 1134 Lantus 30 units + IV insulin infusion Bedside Glucose 208 mg/dl H 09/18/17 1236 IV insulin infusion + 3 units Novolog CHO Coverage Bedside Glucose 164 mg/dl H 09/18/17 1334 IV insulin infusion Bedside Glucose 124 mg/dl H 09/18/17 1437 HOLD/STOP IV insulin infusion per calc Bedside Glucose 99 mg/dl 09/18/17 1455 Bedside Glucose 113 mg/dl H 09/18/17 1512 Bedside Glucose 114 mg/dl H 09/18/17 1530 Bedside Glucose 116 mg/dl H 09/18/17 1545 Bedside Glucose 135 mg/dl H 09/18/17 1602 Bedside Glucose 140 mg/dl H 09/18/17 1620 5 units Novolog CHO Coverage Bedside Glucose 187 mg/dl H 09/18/17 1958 Lantus 10 units + 2 units Novolog CHO Coverage Bedside Glucose 166 mg/dl H 09/19/17 0009 Bedside Glucose 121 mg/dl H 09/19/17 0412 Bedside Glucose 151 mg/dl H 09/19/17 0709 Lantus 30 units + 2 units Novolog CHO Coverage ASSESSMENT: * Type 1 diabetic (vs NYDIA?) known to the Glycemic Service from prior admissions , recurrent DKA * Patient was diagnosed w/ Type 1 DM in November 2014 when he was 29 years old. After his diagnosis he has had 5 admissions to [facility] for DKA; 4 of which have been in the last year. * Patient admitted with mild DKA and abdominal pain ---> DKA now resolved with IV insulin infusion with transition to SQ basal bolus regimen 09/18/17 * Patient has received 56 units of SQ insulin + IV insulin infusion over the past 24hrs * 40 units of basal insulin --> increased dose needed for increase insulin resistance with DKA * 16 units of prandial coverage * Typically patient does well with ~ 60 units of insulin per day * Of note, this patient has been difficult to control on prior admissions due to c/o hypoglycemic symptoms despite having BSGs in the non-hypoglycemic range. Will likely try to maintain BSGs in upper 100's. PLAN FOR INPATIENT GLYCEMIC CONTROL: SQ basal bolus based on an estimated total daily dose of ~ 60 units/day * Basal insulin * Lantus 30 units SQ daily in AM * Will try to keep dosing Q24hrs rather than Q12hrs to help simplify insulin regimen and possibly increase outpatient compliance * Bolus insulin * NovoLog per scale ACHS or Q6hrs while NPO * Goal Range: Low 120 mg/dL - High 150 mg/dL * Correction Factor: 20 mg/dL/unit * Nutritional / Prandial insulin per carb ratio of 1 unit per 7 grams CHO consumed PLAN FOR DISCHARGE: * A1c slightly improved from 12.7% in June to 10.7% yesterday. * Recommend continuing SQ basal bolus insulin regimen with Lantus + Novolog per total daily dose ~ 60 units * Lantus 30 units SQ daily in AM * NovoLog 10 units with meals three times daily - Only give 2-5 units with a meal if it is a "low carb meal" i.e. less than 20g Carbohydrate
[2017-09-19 12:00] VITALS: O2SAT 96; Ht 180.3 cm; Wt 80.9 kg
[2017-09-19] MEDS ORDERED: POTASSIUM CHLORIDE 20 MEQ TABCR PO ONE (12:15)
[2017-09-19 15:12] VITALS: BP 128/79; PULSE 86; TEMP 36.8; O2SAT 96
[2017-09-19] MEDS ORDERED: INSU32MI13 (15:29)
[2017-09-19] MEDS ORDERED: POTA-65 PO (15:29)
--- NOTE | 2017-09-19 15:39 | Discharge Instructions ---
Discharge Instructions Date of Service Sep 19, 2017. Admission Reason for Admission: DKA . Discharge Discharge Diagnosis / Problem: DKA Discharge Goals Goal(s): Improve disease control Activity Recommendations Activity Limitations: resume your previous activity . Instructions / Follow-Up Instructions / Follow-Up APPOINTMENTS: [facility] 09/22/2017 6:15 PM [facility] 10/10/2017 9:20 AM Kylah Orellana, DO OTHER INSTRUCTIONS: Prescription for needles sent to your Pharmacy. Continue Lantus or Basaglar 15 units twice a day. NovoLog 10 units with regular meals 2-5 units with low carb meals (less than 20 grams of carb0. MiraLax 2-3 times a day as needed for constipation. Your potassium level was low. Take potassium chloride pills twice a day for 3 days. Seek medical attention if you have: * blood sugars that are consistently too high or too low * blurred vision * extreme thirst, increased urination * temperature above 101 * chest pain or trouble breathing * abdominal pain, nausea, vomiting, diarrhea * any unanswered questions or concerns Call 911 if symptoms are severe. Call if you have any questions or problems. My cell # is [phone]. You can also reach a [facility] hospitalist on duty at [facility] 24 hours a day by calling [phone]. Please take good care of yourself. Cornelius Kelsey . Current Hospital Diet Patient's current hospital diet: Diabetes Type 1 Diet Discharge Diet Recommended Diet: Diabetes Type 1 Diet Pending Studies Studies pending at discharge: no Laboratory Results Hemoglobin A1c Test 09/19/17 05:44 Range/Units Estimated Average Glucose 260 mg/dl Hemoglobin A1c 10.7 H 4.5-5.6 % Medical Emergencies . Who to Call and When: Medical Emergencies: If at any time you feel your situation is an emergency, please call 911 immediately. . Non-Emergent Contact Non-Emergency issues call your: Primary Care Provider, Hospital Doctor . . "Provider Documentation" section prepared by Cornelius Kelsey. . VTE Core Measure Inpt VTE Proph given/why not?: Treatment not indicated
[2017-09-19 15:43] VITALS: BP 128/79; PULSE 86; TEMP 36.8; O2SAT 96
--- NOTE | 2017-09-19 20:30 | Progress Note ---
Medicine Progress Note Date & Time of Visit: Sep 19, 2017 at 15:21 . Subjective Feels much better. Blood sugars improved. Transitioned to SQ insulin. Spent time with Diabetes Team discussing optimal management. Abdominal pain, constipation resolved. . Objective Last 8 Hrs Date Time Temp Pulse Resp B/P (MAP) Pulse Ox O2 Delivery O2 Flow Rate FiO2 09/19/17 15:12 36.8 86 20 128/79 (95) 96 Room Air 09/19/17 12:00 96 Room Air 09/19/17 08:00 96 Room Air Physical Exam: General- no distress Lungs- clear Cardiovascular- RRR, no gallop; no JVD; no pretibial edema Abdomen- + BS, soft, nontender Extremities- no cyanosis; no calf tenderness Neuro- alert . Laboratory Results: Last 24 Hours Test 09/18/17 15:30 09/18/17 15:45 09/18/17 16:02 09/18/17 16:20 Bedside Glucose 114 mg/dl 116 mg/dl 135 mg/dl 140 mg/dl Test 09/18/17 19:58 09/19/17 00:09 09/19/17 04:12 09/19/17 05:44 Bedside Glucose 187 mg/dl 166 mg/dl 121 mg/dl Sodium Level 140 mmol/L Potassium Level 3.3 mmol/L Chloride Level 106 mmol/L Carbon Dioxide Level 31 mmol/L Anion Gap 3.0 mmol/L Blood Urea Nitrogen 9 mg/dl Creatinine 0.75 mg/dl Est Creatinine Clear Calc Drug Dose 153.3 ml/min Estimated GFR () 142.7 Estimated GFR (Non- 123.1 BUN/Creatinine Ratio 12.4 Random Glucose 130 mg/dl Estimated Average Glucose 260 mg/dl Hemoglobin A1c 10.7 % Calcium Level 8.2 mg/dl Test 09/19/17 07:09 09/19/17 11:39 Bedside Glucose 151 mg/dl 208 mg/dl Assessment & Plan DM TYPE 1 / DKA Presented with random glucose of 637, BHB 34, AG 12. Experiencing abdominal pain and constipation. No other apparent precipitating factors. Hgb A1C 10.7 (high, but improved since 06/26/17 when it was 12.7). DKA managed per protocol with insulin infusion and IV fluids / electrolytes. Pharmacy consulted to assist with management. Blood sugars improved. Transitioned from IV to SQ insulin. Ongoing education / support. ABDOMINAL PAIN Resolved. VTE PROPHYLAXIS Not indicated. Very low risk of VTE per IMPROVE VTE risk model. Ambulate. DISPOSITION Discharge to home. Follow-up with [facility]. Family Medicine follow-up with Dr. Orellana. . Current Inpatient Medications: Current Inpatient Medications Medications (Trade) Dose Ordered Sig/Isac Route Start Time Stop Time Status Last Admin Dose Admin Miscellaneous Information (Consult Glycemic Management Pharmacy) 1 ea DAILY PRN N/A 09/18/17 00:06 10/18/17 00:05 Senna (Senokot Tab) 8.6 mg QAM PO 09/18/17 09:00 10/18/17 08:59 Docusate Sodium (coLACE CAP) 100 mg BID PO 09/18/17 09:00 10/18/17 08:59 Glucose (Glucose 40% Gel) 15-30 GRAMS 15 GRAMS... UD PRN PO 09/18/17 00:30 10/18/17 00:29 Glucose (Glucose Chew Tab) 4-8 Tablets 4 Tabl... UD PRN PO 09/18/17 00:30 10/18/17 00:29 Dextrose (Dextrose 50% 50ML Syringe) 25-50ML OF 50% DW IV FOR... UD PRN IV 09/18/17 00:30 10/18/17 00:29 Glucagon (Glucagon Inj) 1 mg UD PRN SQ 09/18/17 00:30 10/18/17 00:29 Trazodone HCl (Desyrel Tab) 50 mg HS PO 09/18/17 21:00 10/18/17 20:59 09/18/17 20:51 50 MG Acetaminophen (Tylenol Tab) 325 mg Q4H PRN PO 09/18/17 01:00 10/18/17 00:59 Insulin Aspart (novoLOG ASPART) SLIDING SCALE ACHS SC 09/18/17 16:30 10/18/17 16:29 09/19/17 12:55 6 UNITS Insulin Glargine (Lantus Solostar Pen) 30 units DAILY SC 09/19/17 09:00 10/19/17 08:59 09/19/17 08:26 30 UNITS Polyethylene (Miralax Powder Packet) 17 gm TID PRN PO 09/19/17 08:00 10/19/17 07:59
--- NOTE | 2017-09-20 03:41 | Discharge Summary ---
Discharge Summary Date of Service Sep 20, 2017. Discharge Summary Admission Date: Sep 17, 2017 at 23:53 Discharge Date: Sep 19, 2017 Discharge Disposition: Home Principal Diagnosis: diabetes ketoacidosis OTHER ACUTE DIAGNOSES: dehydration hyponatremia (pseudohyponatremia) hypokalemia . Secondary Diagnoses/Problems: Chronic Medical Problems: (1) Diabetes mellitus type 1 Status: Chronic (2) Hypertension Status: Chronic . Procedures: CT abdomen and pelvis . Consultations: Pharmacy / Diabetes Education . Pending Studies/Follow-Up: Please check basic metabolic profile at time of f/u clinic visit. . Medication Reconciliation New Medications: Insulin Pen Needle (Bd Pen Needle/Mirtha/Ultra) 1 Mis Mis BOX UD, #1 12 Refills BD mirtha insulin pen needles. Potassium Chloride (Potassium Chloride ER) 20 Meq Tab 20 MEQ PO BID, #6 TAB Continued Medications: Insulin Aspart (Novolog Flexpen) 100 Units/Ml Inj 1 DOSE SC TIDM New dose 09/19/17: 10 units with normal meal. 2-5 units with low carb meal. Insulin Glargine (Basaglar Kwikpen) 100 Unit/Ml Inj 15 UNITS SC AMPM Trazodone Hcl (Trazodone) 50 Mg Tab 50 MG PO HS, TAB Admission Information HPI (per Admitting provider): 32 year old M who reports of late onset Type 1 diabetes made last year, with FH of diabetes Type 2 of his mother, who presents to the ED with abdominal pain and found to have serum glucose over 600. Patient was given 4 units Regular insulin IV and presented to hospitalist physician for admission of hyperglycemia with lab evidence of mild DKA. Patient seen and examined at bedside. Generally well appearing. Speaking in full sentences. Reports of having constipation x 3 days. Reports pain of lower abdomen towards bladder. Denies dysuria. . Physical Exam (per Admitting): General Appearance: WD/WN, no apparent distress Head: normocephalic, atraumatic Eyes: normal inspection, EOMI, sclerae normal ENT: normal ENT inspection, hearing grossly normal, pharynx normal Neck: supple, no adenopathy, no JVD, trachea midline Respiratory/Chest: chest non-tender, lungs clear, normal breath sounds, no respiratory distress, no accessory muscle use Cardiovascular: regular rate, rhythm, no edema, no JVD, no murmur, normal peripheral pulses Abdomen/GI: normal bowel sounds, soft, no organomegaly, no pulsatile mass, + pertinent finding (no acute tenderness on palpation but patient reports lower abdomen feels some discomfort when palpated) Back: normal inspection, no muscle spasm, normal range of motion Extremities/Musculoskelatal: normal inspection, no calf tenderness, no pedal edema, normal range of motion, non-tender 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: sustainability specialist II-XII nml as tested, no motor/sensory deficits, alert , normal mood/affect, oriented x 3 Skin: normal color, warm/dry, no rash Hospital Course DM TYPE 1 / DKA Presented with random glucose of 637, BHB 34, AG 12. Experiencing abdominal pain and constipation. No other apparent precipitating factors. Hgb A1C 10.7 (high, but improved since 06/26/17 when it was 12.7). DKA managed per protocol with insulin infusion and IV fluids / electrolytes. Pharmacy consulted to assist with management. Blood sugars improved. Transitioned from IV to SQ insulin. Insulin regimen adjusted as noted. Ongoing education / support. DEHYDRATION Secondary to DKA. Received IV fluids. HYPONATREMIA Serum Na 127 at time of admission. Na corrected for hyperglycemia = 135. Therefore, hyponatremia was pseudohyponatremia due to hyperglycemia. Na day of discharge was 140. HYPOKALEMIA Serum K as low as 3.2 secondary to DKA / insulin infusion. Received IV and oral replacement. Recheck in clinic. ABDOMINAL PAIN Patient experiencing constipation at home and was taking mag citrate. Had abdominal pain at time of admission. CT demonstrated "mild small bowel enteritis." Symptoms resolved by discharge. VTE PROPHYLAXIS Not indicated. Very low risk of VTE per IMPROVE VTE risk model. Ambulate. DISPOSITION Discharge to home. Follow-up with [facility]. Family Medicine follow-up with Dr. Orellana. . Total time spent on discharge = 40 min. This includes examination of the patient, discharge planning, medication reconciliation, and communication with other providers. . Discharge Instructions Date of Service Sep 19, 2017. Admission Reason for Admission: DKA . Discharge Discharge Diagnosis / Problem: DKA Discharge Goals Goal(s): Improve disease control Activity Recommendations Activity Limitations: resume your previous activity . Instructions / Follow-Up Instructions / Follow-Up APPOINTMENTS: [facility] 09/22/2017 6:15 PM [facility] 10/10/2017 9:20 AM Kylah Orellana, DO OTHER INSTRUCTIONS: Prescription for needles sent to your Pharmacy. Continue Lantus or Basaglar 15 units twice a day. NovoLog 10 units with regular meals 2-5 units with low carb meals (less than 20 grams of carb0. MiraLax 2-3 times a day as needed for constipation. Your potassium level was low. Take potassium chloride pills twice a day for 3 days. Seek medical attention if you have: * blood sugars that are consistently too high or too low * blurred vision * extreme thirst, increased urination * temperature above 101 * chest pain or trouble breathing * abdominal pain, nausea, vomiting, diarrhea * any unanswered questions or concerns Call 911 if symptoms are severe. Call if you have any questions or problems. My cell # is [phone]. You can also reach a [facility] hospitalist on duty at [facility] 24 hours a day by calling [phone]. Please take good care of yourself. Cornelius Kelsey . Current Hospital Diet Patient's current hospital diet: Diabetes Type 1 Diet Discharge Diet Recommended Diet: Diabetes Type 1 Diet Pending Studies Studies pending at discharge: no Laboratory Results Hemoglobin A1c Test 09/19/17 05:44 Range/Units Estimated Average Glucose 260 mg/dl Hemoglobin A1c 10.7 H 4.5-5.6 % Medical Emergencies . Who to Call and When: Medical Emergencies: If at any time you feel your situation is an emergency, please call 911 immediately. . Non-Emergent Contact Non-Emergency issues call your: Primary Care Provider, Hospital Doctor . . "Provider Documentation" section prepared by Cornelius Kelsey. . VTE Core Measure Inpt VTE Proph given/why not?: Treatment not indicated .
== END 2017-09-19 16:52 | disposition home or self-care (01) | DRG 639 ==
LOC: C.EDB 20:52 → UNDOADMIN 23:49 → C.MED 23:49 → ENRESERV 09-18 01:16
PROVIDERS: ADMIT Hospitalist; ATTEND Hospitalist
DX: E10.10 Type 1 diabetes mellitus with ketoacidosis without coma (principal); E86.0 Dehydration; E87.6 Hypokalemia; I10 Essential (primary) hypertension; K59.00 Constipation, unspecified; Z79.4 Long term (current) use of insulin; Z79.899 Other long term (current) drug therapy; F17.200 Nicotine dependence, unspecified, uncomplicated; Z88.5 Allergy status to narcotic agent; Z83.3 Family history of diabetes mellitus

== ENCOUNTER 2018-01-20 14:02 | Emergency (ER) | payer OTHER ==
[~2018-01-20] VITALS: Ht 180.3 cm; Wt 77.0 kg
[~2018-01-20 14:02] MED LIST changes: -INSDGIPEN SC; +INSU100I23 SC; +INSU32MI13; -MIRT15TA3 PO; +POTA-65 PO; +TRAZ50TA35 PO
[2018-01-20 14:05] VITALS: TEMP 36.3; Ht 180.3 cm; Wt 77.0 kg
[2018-01-20] MEDS ORDERED: KETOROLAC TROMETHAMINE 30 MG/ML VIAL IV STA (14:13)
[2018-01-20] MEDS ORDERED: SODIUM CHLORIDE 0.9% 1000ML 2,000 ML IV STA (14:13)
--- NOTE | 2018-01-20 14:23 | EMERGENCY ROOM VISIT NOTE ---
History Report prepared by Jennifer: Evan Purdy Under the Supervision of: Dr. Doug Rico M.D. First contact with patient: 14:09 Chief Complaint: SHORTNESS OF BREATH Stated Complaint: CHEST PAIN,SOB, PAIN RADIATING DOWN ARM History of Present Illness The patient is a 32 year old male who presents to the Emergency Room with complaints of constant chest pain beginning this morning. The patient states that he woke up with chest pain at 0830. He notes that he felt fine last night before he went to sleep. He also complains of SOB and lightheadedness. He reports that his pain worsens when he lies down. He denies any fever, chills, cough, nausea, vomiting, diarrhea, and urinary symptoms. The patient states that he has not experienced similar symptoms in the past. He notes that he has a history of type 1 diabetes and has been having difficulty keeping his blood sugar below 300 for the last week. He reports that his ketones were also elevated a few days ago but has since normalized. The patient states that he has been in DKA in the past, and notes that his current symptoms do not feel similar. He reports that he takes insulin and trazodone. The patient states that he has no history of blood clots. He notes that he has a family history of heart attacks. He reports that he smokes half a pack of cigarettes a day but does not drink alcohol. The patient states that he also goes through a half a gram of marijuana a week and only smokes every 2-3 days. [place] Source of History: patient Onset: this morning at 0830 Position: chest Timing: constant Modifying Factors (Worsening): other (lying down) Associated Symptoms: + SOB, No fevers, No chills, No cough, No nausea, No vomiting, No diarrhea, No urinary symptoms Note: The patient also complains of lightheadedness. Review of Systems See HPI for pertinent positives and negatives. A total of ten systems were reviewed and were otherwise negative. Past Medical & Surgical Medical Problems: (1) Dental Disorder Nos (2) Diabetes (3) Hypertension (4) Major depressive disorder, recurrent episode (5) Male Genital Dis Nos (6) Rectal & Anal Hemorrhage (7) Tobacco abuse disorder Family History Cancer Diabetes mellitus FH: heart attack Heart disease Hypertension Kidney disease Kidney stones Seizures Social History Smoking Status: Current Every Day Smoker Alcohol Use: none Drug Use: marijuana Marital Status: single Housing Status: lives with family Occupation Status: employed Current/Historical Medications Scheduled Insulin Aspart (Novolog Flexpen), 1 DOSE SC TIDM Insulin Glargine (Basaglar Kwikpen), 15 UNITS SC AMPM Potassium Chloride (Potassium Chloride ER), 20 MEQ PO BID Trazodone Hcl (Trazodone), 50 MG PO HS Scheduled PRN Ibuprofen Tab (Motrin), 800 MG PO Q8H PRN for Pain Durable Medical Equipment Insulin Pen Needle (Bd Pen Needle/Cyndi/Ultra), BOX UD Allergies Coded Allergies: Methyl Salicylate (Unverified Allergy, Unknown, HIVES, "FEELS LIKE FIRE ON MY SKIN", 01/20/18) Codeine (Verified Adverse Reaction, Intermediate, BECOMES VERY AGGRESSIVE , 01/20/18) Physical Exam Vital Signs Date Time Temp Pulse Resp B/P (MAP) Pulse Ox O2 Delivery O2 Flow Rate FiO2 01/20/18 19:07 75 16 125/72 98 Room Air 01/20/18 17:59 88 16 143/91 98 Room Air 01/20/18 16:00 76 16 132/76 98 Room Air 01/20/18 15:11 98 Room Air 01/20/18 15:02 80 16 124/82 98 Room Air 01/20/18 14:51 87 01/20/18 14:46 99 Room Air 01/20/18 14:05 36.3 101 16 124/72 100 Room Air Physical Exam GENERAL: Awake, alert, fatigued appearing, uncomfortable appearing, in no distress HENT: Normocephalic, atraumatic. Oropharynx unremarkable. Dry cracked mucous membranes. EYES: Normal conjunctiva. Sclera non-icteric. NECK: Supple. No nuchal rigidity. FROM. No JVD. RESPIRATORY: Clear to auscultation. CARDIAC: Regular rate, normal rhythm. Extremities warm and well perfused. Pulses equal. ABDOMEN: Soft, non-distended. No rebound or guarding. No masses. Mild epigastric discomfort but no discrete tenderness. RECTAL: Deferred. MUSCULOSKELETAL: Chest examination reveals no tenderness. The back is symmetrical on inspection without obvious abnormality. There is no CVA tenderness to palpation. No joint edema. LOWER EXTREMITIES: Calves are equal size bilaterally and non-tender. No edema. No discoloration. NEURO: Normal sensorium. No sensory or motor deficits noted. SKIN: No rash or jaundice noted. Medical Decision & Procedures ER Provider Diagnostic Interpretation: Radiology results as stated below per my review and radiologist interpretation: CHEST ONE VIEW PORTABLE FINDINGS: The lungs are clear. Cardiac silhouette is normal in size. No pleural effusions. No pneumothorax. IMPRESSION: No acute process. Electronically signed by: Wesley Valdez M.D. 01/20/2018 2:36 PM Laboratory Results 01/20/18 14:29 Red Blood Count 5.06, Mean Corpuscular Volume 86.4, Mean Corpuscular Hemoglobin 32.4, Mean Corpuscular Hemoglobin Concent 37.5, Neutrophils (%) (Auto) 60.8, Lymphocytes (%) (Auto) 26.4, Monocytes (%) (Auto) 9.8, Eosinophils (%) (Auto) 2.4, Basophils (%) (Auto) 0.3, Neutrophils # (Auto) 2.24, Lymphocytes # (Auto) 0.97, Monocytes # (Auto) 0.36, Eosinophils # (Auto) 0.09, Basophils # (Auto) 0.01 01/20/18 17:56 Test 01/20/18 14:29 01/20/18 14:36 01/20/18 15:58 01/20/18 16:49 White Blood Count 3.68 K/uL (4.8-10.8) Red Blood Count 5.06 M/uL (4.7-6.1) Hemoglobin 16.4 g/dL (14.0-18.0) Hematocrit 43.7 % (42-52) Mean Corpuscular Volume 86.4 fL (80-100) Mean Corpuscular Hemoglobin 32.4 pg (25-34) Mean Corpuscular Hemoglobin Concent 37.5 g/dl (32-36) Platelet Count 181 K/uL (130-400) Neutrophils (%) (Auto) 60.8 % Lymphocytes (%) (Auto) 26.4 % Monocytes (%) (Auto) 9.8 % Eosinophils (%) (Auto) 2.4 % Basophils (%) (Auto) 0.3 % Neutrophils # (Auto) 2.24 K/uL (1.4-6.5) Lymphocytes # (Auto) 0.97 K/uL (1.2-3.4) Monocytes # (Auto) 0.36 K/uL (0.11-0.59) Eosinophils # (Auto) 0.09 K/uL (0-0.5) Basophils # (Auto) 0.01 K/uL (0-0.2) Immature Granulocyte % (Auto) 0.3 % Immature Granulocyte # (Auto) 0.01 K/uL (0.00-0.02) Red Blood Cell Morphology Unremarkable Prothrombin Time 10.0 SECONDS (9.0-12.0) Prothromb Time International Ratio 1.0 (0.9-1.1) Total Bilirubin 1.6 mg/dl (0.2-1) Direct Bilirubin 0.3 mg/dl (0-0.2) Aspartate Amino Transf (AST/SGOT) 12 U/L (15-37) Alanine Aminotransferase (ALT/SGPT) 18 U/L (12-78) Alkaline Phosphatase 80 U/L (45-117) Troponin I < 0.015 ng/ml (0-0.045) Total Protein 7.2 gm/dl (6.4-8.2) Albumin 4.3 gm/dl (3.4-5.0) Lipase 81 U/L (73-393) Beta-Hydroxybutyric Acid 56.50 mg/dL (0.2-2.81) Ethyl Alcohol mg/dL < 3.0 mg/dl (0-3) Bedside Hemoglobin 16.0 g/dl (14.0-18.0) Bedside Hematocrit 47 % (42-52) Bedside Sodium 133 mEq/L (135-144) Bedside Potassium 4.5 mEq/L (3.3-5.0) Bedside Chloride 97 mEq/L (101-112) Bedside Total CO2 18 mEq/l (24-31) Bedside Blood Urea Nitrogen 16 mg/dl (7-18) Bedside Creatinine 0.8 mg/dl (0.6-1.3) Bedside Glucose (other) 362 mg/dl (70-99) Bedside Ionized Calcium (Andrew) 1.10 mmol/l (1.12-1.32) Urine Color YELLOW Urine Appearance CLEAR (CLEAR) Urine pH 5.5 (4.5-7.5) Urine Specific [place] 1.036 (1.000-1.030) Urine Protein NEG (NEG) Urine Glucose (UA) 3+ (NEG) Urine Ketones 4+ (NEG) Urine Occult Blood NEG (NEG) Urine Nitrite NEG (NEG) Urine Bilirubin NEG (NEG) Urine Urobilinogen NEG (NEG) Urine Leukocyte Esterase NEG (NEG) Bedside Glucose 319 mg/dl (70-99) Test 01/20/18 17:56 Venous Blood pH 7.36 (7.36-7.41) Venous Blood Partial Pressure CO2 43 mmHg (38.0-50.0) Venous Blood Partial Pressure O2 29 mmHg Venous Blood HCO3 24 mmol/L Venous Blood Oxygen Saturation < 60.0 % Venous Blood Base Excess -1.6 mEq/L Anion Gap 10.0 mmol/L (3-11) Est Creatinine Clear Calc Drug Dose 121.0 ml/min Estimated GFR () 124.0 Estimated GFR (Non- 107.0 BUN/Creatinine Ratio 14.8 (10-20) Calcium Level 7.6 mg/dl (8.5-10.1) Laboratory results reviewed by me Medications Administered Medications (Trade) Dose Ordered Sig/Isac Route Start Time Stop Time Status Last Admin Dose Admin Sodium Chloride 2,000 ml @ 999 mls/hr Q2H1M STAT IV 01/20/18 14:13 01/20/18 16:13 DC 01/20/18 15:02 999 MLS/HR Ketorolac Tromethamine (Toradol Inj) 15 mg NOW STAT IV 01/20/18 14:13 01/20/18 14:20 DC 01/20/18 14:45 15 MG Sodium Chloride 1,000 ml @ 999 mls/hr Q1H1M STAT IV 01/20/18 16:41 01/20/18 17:41 DC 01/20/18 16:51 999 MLS/HR Insulin Aspart (novoLOG ASPART) 10 units NOW STAT SC 01/20/18 17:02 01/20/18 17:03 DC 01/20/18 17:02 10 UNITS ECG Per My Interpretation Indication: chest pain Rate (beats per minute): 78 Rhythm: normal sinus Findings: no acute ischemic change, other (Normal axis, diffuse early repolarization) Comparison ECG Date: 08/08/2017 Change: no significant change Change: EKG #2: Normal sinus, 81, normal axis, diffuse early repolarization, no acute ischemia. ED Course 1412: The patient was evaluated in room B9. A complete history and physical exam was performed. Medical Decision I reviewed the patient's past medical history, medications, and the nursing notes as described above. Differential diagnosis: Etiologies such as appendicitis, diverticulitis, PUD, biliary pathology, UTI, pancreatitis, obstruction, mesenteric ischemia, aortic pathology, infections, inflammatory bowel disease, renal colic, cardiac ischemia, aortic dissection, pulmonary embolism, pneumonia, pneumothorax, musculoskeletal, pericarditis, myocarditis, esophageal rupture, gastrointestinal, as well as others were entertained. The patient is a 32-year-old gentleman with a past medical history of insulin- dependent diabetes who presents emergency department with constant chest pain since this morning per hpi. Denies any recent viral symptoms. While the patient is in no acute distress, afebrile stable vital signs. He has mild epigastric discomfort but no discrete tenderness. Does report increased pressure when he lies flat there is improved when he sits up. EKG demonstrates diffuse early repolarization with question Spodick's sign that could be consistent with pericarditis however repeat EKG and review of prior EKGs demonstrate similar morphology. Bedside echo unremarkable with no pericardial effusion and grossly normal LV and RV function. Chest x-ray negative. Initial labs demonstrate mild alkalemia likely from the patient's hyperventilation on arrival. Bicarb 18 anion gap was 17 in the setting of glucose in the 350s with ketones in the 50s. However, despite the patient's hyperglycemia appears to have ketosis without ketoacidosis. Patient feeling improved with resolution of chest pain after initial IV fluids and Toradol. Discussed with the patient the option for admission or if repeat lab work is reassuring we could consider outpatient management. Patient preferred the latter. Given subcu insulin and additional IV fluids. Repeat VBG reassuring with pH of 7.35 and CO2 of 43 with no base deficit. Repeat BMP also reassuring with Agap cleared and bicarb 22. Glucose 280. Patient feeling additionally improved. While patient's symptoms of CP did appear positional he denied any burning sensation. Moreover, given his EKG appears unchanged from his baseline and his symptoms completed resolved with IVF and single dose of toradol, pericarditis less likely. Patient's symptoms most likely related to dehydration with ketosis provoked by his recently elevated glucose. Findings and plan for follow-up reviewed with patient. Patient agreeable and d/c'd per discharge instructions. Medication Reconcilliation Current Medication List: was personally reviewed by me Blood Pressure Screening Patient's blood pressure: Elevated blood pressure Blood pressure disposition: Elevated BP felt to be situational Impression Primary Impression: Hyperglycemia, unspecified Additional Impressions: Dehydration Chest pain Scribe Attestation The scribe's documentation has been prepared under my direction and personally reviewed by me in its entirety. I confirm that the note above accurately reflects all work, treatment, procedures, and medical decision making performed by me. Departure Information Dispostion Home / Self-Care Prescriptions Ibuprofen Tab (MOTRIN) 800 Mg Tab 800 MG PO Q8H Y for Pain for 7 Days, #21 TAB Prov: Doug Rico M.D. 01/20/18 Referrals Kylah Orellana D.O. (PCP) Patient Instructions ED Chest Pain Atypical Unkn Cause, ED Chest Pain Pericarditis, ED Dehydration, ED Hyperglycemia Diabetic, My [facility] Additional Instructions Please follow up with your primary care physician in the next 1-3 days for re- evaluation to discuss improved glucose control. Your symptoms are most likely due to dehydration likely provoked by your recently elevated glucose. While pericarditis was considered, this seems unlikely given your resolution of symptoms with hydration. Otherwise, your exam, EKG, chest xray, and lab results did not show signs of an emergent condition at this time. Acetaminophen or ibuprofen for pain and fevers as needed. Drink plenty of fluids to ensure hydration. Return to the emergency department for worsening symptoms as described in the accompanying instructions. Problem Qualifiers
--- NOTE | 2018-01-20 14:37 | DIAGNOSTIC IMAGING REPORT ---
CHEST ONE VIEW PORTABLE HISTORY: Atypical CHEST PAIN COMPARISON: Chest 09/17/2017. FINDINGS: The lungs are clear. Cardiac silhouette is normal in size. No pleural effusions. No pneumothorax. IMPRESSION: No acute process. Electronically signed by: Wesley Valdez M.D. 01/20/2018 2:36 PM Dictated Date/Time: 01/20/2018 2:33 PM
[2018-01-20 14:50] LABS: ISTAT CREATININE 0.8 mg/dl (0.6-1.3); ISTAT IONIZED CALCIUM 1.1 mmol/l (1.12-1.32); ISTAT POTASSIUM 4.5 mEq/L (3.3-5.0)
[2018-01-20 15:11] VITALS: O2SAT 98
[2018-01-20 15:45] LABS: HEMATOCRIT 43.7 % (42-52); HEMOGLOBIN 16.4 g/dL (14.0-18.0); MEAN CELL VOLUME 86.4 fL (80-100); MEAN CORPUSCULAR HEMOGLOBIN 32.4 pg (25-34); MEAN CORPUSCULAR HGB CONC 37.5 g/dl (32-36); PLATELET COUNT 181 K/uL (130-400); WHITE BLOOD COUNT 3.68 K/uL (4.8-10.8)
[2018-01-20 15:47] LABS: BASO % 0.3 %; BASO ABS # 0.01 K/uL (0-0.2); EOS % 2.4 %; EOS ABS # 0.09 K/uL (0-0.5); IG# 0.01 K/uL (0.00-0.02); LYMPH % 26.4 %; LYMPH ABS # 0.97 K/uL (1.2-3.4); MONO % 9.8 %; MONO ABS # 0.36 K/uL (0.11-0.59); NEUT % 60.8 %; NEUT ABS # 2.24 K/uL (1.4-6.5)
[2018-01-20 15:55] LABS: ALBUMIN 4.3 gm/dl (3.4-5.0); ALKALINE PHOSPHATASE 80 U/L (45-117); ALT/SGPT 18 U/L (12-78); AST/SGOT 12 U/L (15-37); BLOOD UREA NITROGEN 15 mg/dl (7-18); CARBON DIOXIDE 18 mmol/L (21-32); CREATININE 1.03 mg/dl (0.60-1.40); GLUCOSE 359 mg/dl (70-99); LIPASE 81 U/L (73-393); POTASSIUM 4.3 mmol/L (3.5-5.1); SODIUM 132 mmol/L (136-145); TOTAL PROTEIN 7.2 gm/dl (6.4-8.2)
[2018-01-20] MEDS ORDERED: SODIUM CHLORIDE 0.9% 1000ML 1,000 ML IV STA (16:41)
[2018-01-20] MEDS ORDERED: INSULIN ASPART 100 UNITS/ML 3 ML PEN SC STA (17:02)
[2018-01-20] MEDS ORDERED: NovoLOG PER UNIT CHARGE ONE (17:17)
[2018-01-20 19:05] LABS: CALCIUM 7.6 mg/dl (8.5-10.1); CREATININE 0.95 mg/dl (0.60-1.40); POTASSIUM 4.3 mmol/L (3.5-5.1)
[2018-01-20 19:07] VITALS: BP 125/72; PULSE 75; O2SAT 98
[2018-01-20] MEDS ORDERED: IBUP-1451 PO (19:22)
== END 2018-01-20 19:44 | disposition home or self-care (01) ==
LOC: C.EDB 14:04
DX: E10.65 Type 1 diabetes mellitus with hyperglycemia (principal); E86.0 Dehydration; R07.9 Chest pain, unspecified; Z79.4 Long term (current) use of insulin; Z79.899 Other long term (current) drug therapy; Z82.49 Family history of ischemic heart disease and other diseases of the circulatory system; F17.210 Nicotine dependence, cigarettes, uncomplicated; F12.90 Cannabis use, unspecified, uncomplicated; I10 Essential (primary) hypertension; F32.9 Major depressive disorder, single episode, unspecified; Z80.9 Family history of malignant neoplasm, unspecified; Z83.3 Family history of diabetes mellitus; Z84.1 Family history of disorders of kidney and ureter; Z82.0 Family history of epilepsy and other diseases of the nervous system; Z88.5 Allergy status to narcotic agent; Z88.8 Allergy status to other drugs, medicaments and biological substances

== ENCOUNTER 2018-04-15 08:18 | Emergency (ER) | payer OTHER ==
[~2018-04-15] VITALS: Ht 180.3 cm; Wt 81.1 kg
[2018-04-15 08:20] VITALS: TEMP 37; Ht 180.3 cm; Wt 81.1 kg
[2018-04-15 09:29] LABS: CALCIUM 8.6 mg/dl (8.5-10.1); CREATININE 1.04 mg/dl (0.60-1.40); POTASSIUM 4.4 mmol/L (3.5-5.1)
[2018-04-15] MEDS ORDERED: NovoLIN-R INSULIN PER UNIT CHARGE IV STA (10:16)
[2018-04-15] MEDS ORDERED: SODIUM CHLORIDE 0.9% 1000ML 1,000 ML IV ONE (10:30)
--- NOTE | 2018-04-15 11:34 | DIAGNOSTIC IMAGING REPORT ---
CT SCAN OF THE BRAIN WITHOUT IV CONTRAST CLINICAL HISTORY: Hyperglycemia. Facial palsy. COMPARISON STUDY: No priors. TECHNIQUE: Unenhanced axial CT scan of the brain is performed from the vertex to the skull base. A dose lowering technique was utilized adhering to the principles of ALARA. CT DOSE: 537.48 mGy.cm FINDINGS: Brain parenchyma: The brain parenchyma is normal in appearance. There is no hemorrhage, mass effect, or evidence of acute territorial ischemia by CT criteria. Dietz-white matter is preserved. No extra-axial fluid collection is seen. Ventricles, sulci, cisterns: Normal in configuration. Intracranial vasculature: The visualized intracranial vasculature at the skull base is normal in appearance. Calvarium: Unremarkable. Sinuses and mastoids: The visualized paranasal sinuses are clear. The mastoid air cells are well pneumatized. Orbits: The bony orbits are grossly intact. A metallic foreign body/BB is seen posterior to the right orbit in the right maxillary antrum. IMPRESSION: 1. No acute intracranial abnormality. 2. A metallic foreign body/BB is seen posterior to the right orbit/right maxillary antrum. Electronically signed by: Beltran Lema M.D. 04/15/2018 11:32 AM Dictated Date/Time: 04/15/2018 11:30 AM
[2018-04-15] MEDS ORDERED: VALA1TAB31 PO (13:14)
[2018-04-15 13:32] VITALS: BP 132/85; PULSE 85; O2SAT 100
--- NOTE | 2018-04-15 18:10 | EMERGENCY ROOM VISIT NOTE ---
ED Visit Note First contact with patient: 08:25 Chief Complaint: Left ear pain. History of Present Illness: Mr. Moscoso is a 32-year-old white male who ambulates into the ED complaining of left ear pain and left-sided facial paralysis. Historically patient reports she is a type I diabetic for many years. Looking at his previous medical record he is not well controlled. Patient reports he has been having ongoing left ear pain for approximately 1 month. He reports during this time he noted some mild decrease in hearing so he felt his ear was impacted. He has been cleaning out his ears with Q-tips on a daily basis. Then approximately 1.5 days ago he started noticing that his tongue was having tingling sensations on the left. Then yesterday when he awoke he noted a he had difficulty closing his eyes and blinking, a left-sided facial droop at the level of the mouth. Currently he is complaining of left ear pain as a throbbing sensation. He rates his discomfort 5/10. Initially his pain was radiating in the postauricular area but now it is rating down the lateral neck inferior to the ear. He has not identified any aggravating or alleviating factors related to the pain. He has not taken any medication for his pain or facial paralysis. Additionally he reports she remembers approximately 5 months ago he had an embedded in his skin which he took out with tweezers. He denies fevers, chills, sweats, skin eruptions, skin color changes, headache, dizziness, lightheadedness, ear drainage, visual changes, hearing changes, difficulty speaking, difficulty swallowing, sore throat, painful talking, drooling, neck pain/stiffness, cough, wheezing, shortness of breath, nausea, vomiting, extremity weakness/numbness/tingling. Review of Systems: As noted above in history of present illness. All body systems were reviewed and found to be negative as noted above. Past Medical History: As previously noted and hypertension Current Medications: Trazodone, insulin. Allergies to Medications: Codeine, methyl salicylate. Social History: Patient is currently employed; he feels safe in his home environment; he admits to tobacco use and denies alcohol use. Physical Examination: Vital Signs: Date Time Temp Pulse Resp B/P (MAP) Pulse Ox O2 Delivery O2 Flow Rate FiO2 04/15/18 13:32 85 18 132/85 100 04/15/18 11:36 74 18 128/86 100 Room Air 04/15/18 09:53 78 16 133/83 99 Room Air 04/15/18 08:20 37.0 96 18 148/90 100 Room Air GENERAL: 32-year-old female in mild distress due to symptoms, nontoxic-appearing , afebrile and hemodynamically stable. NEUROLOGICAL: Awake, alert and oriented to person, place and time. Answering questions appropriately and following commands. Normal gait. Good hand eye coordination. SKIN: Warm, dry and pink. No soft tissue eruptions or trauma noted. HEENT: Atraumatic and normocephalic. Inability to wrinkle his forehead on the left side of his face, left eyelid is drooping and he cannot hold it shut against resistance, left sided facial droop of the mouth. PERRLA. EOMI without nystagmus. Sclera white and conjunctiva pink. No external ear tenderness. No tragal tenderness. Auditory canal is mildly erythematous and edematous. Tympanic membranes were completely visualized and there was no sign erythema or edema. He was able to distinguish light sensations to all dermatomes of the face. No drainage from naris. No malocclusion. No intraoral trauma. No deviation of the tongue. No obvious signs of dental disease. Airway is patent. Speech is clear. No cervical lymphadenopathy. No carotid bruits. Trachea midline. No jugular venous distention. BACK: No tenderness over the bony cervical length spine. Full range of motion of the cervical spine. THORAX: Lungs sounds are clear to auscultation and equal bilaterally with symmetrical chest wall. No crepitus, tenderness, subcutaneous air or deformities noted. ABDOMEN: Flat, soft and nontender. Positive bowel sounds in all quadrants. No guarding, rigidity or organomegaly. EXTREMITIES: Moves all extremities well on command and with purpose. All distal neurovascular statuses are intact and equal bilaterally. ED Course: Patient is assessed as noted above. Patient's medication list was reviewed. Laboratory Testing: Test 04/15/18 08:54 04/15/18 08:55 04/15/18 11:35 04/15/18 12:16 Range/Units Bedside Glucose 428 192 138 70-99 mg/dl Sodium Level 135 136-145 mmol/L Potassium Level 4.4 3.5-5.1 mmol/L Chloride Level 103 98-107 mmol/L Carbon Dioxide Level 28 21-32 mmol/L Anion Gap 5.0 3-11 mmol/L Blood Urea Nitrogen 15 7-18 mg/dl Creatinine 1.04 0.60-1.40 mg/dl Est Creatinine Clear Calc Drug Dose 110.6 ml/min Estimated GFR () 111.1 Estimated GFR (Non- 95.9 BUN/Creatinine Ratio 14.4 10-20 Random Glucose 422 70-99 mg/dl Calcium Level 8.6 8.5-10.1 mg/dl Beta-Hydroxybutyric Acid 0.61 0.2-2.81 mg/dL Lyme Disease IgG Antibody NEG NEG Lyme Disease IgM Antibody NEG NEG Test 04/15/18 13:04 Range/Units Bedside Glucose 126 70-99 mg/dl Head CT: Was reviewed by myself and read by the radiologist and shows no acute intracranial abnormalities and a metal foreign body; BB posterior to the right orbit. An IV lock was initiated and patient received a liter of fluid and 7 units of regular insulin for his hyperglycemia. Patient was reassessed multiple times during his stay in the emergency department. Patient's case was reviewed with Dr. Silver, we agreed on diagnostic approach, treatment, disposition and plan. Patient and family members were educated about today's findings and instructed on his treatment plan; he verbalized understanding and agreement with this plan. Clinical Impression: Garcia's palsy. Hyperglycemia. Decision-Making: Initially my differential diagnosis I considered Garcia's palsy, CVA, TIA, facial nerve paralysis, Lyme's disease exacerbation and other causes. Disposition: Patient discharged home in stable condition accompanied by multiple family members; prior to departure he was reassessed and subjectively reported he was feeling much better. Plan: Patient was encouraged to continue his current medications as prescribed and to check his blood sugar daily for 5 times a day. Patient was given a prescription for Valtrex 1 g 3 times a day for 7 days. Patient was encouraged to follow-up with his PCP on Tuesday. Patient was encouraged if he went to bed and could not completely close his eyes he should moisten his eyes shut. Patient was encouraged return the ED for worsening/uncontrolled symptoms, fevers , uncontrolled blood sugars or any new/concerning symptoms.
== END 2018-04-15 13:33 | disposition home or self-care (01) ==
LOC: C.EDB 08:20 → C.EDA 13:33
DX: G51.0 Bell's palsy (principal); E10.65 Type 1 diabetes mellitus with hyperglycemia; Z79.4 Long term (current) use of insulin; I10 Essential (primary) hypertension; F17.200 Nicotine dependence, unspecified, uncomplicated; Z88.4 Allergy status to anesthetic agent; Z88.8 Allergy status to other drugs, medicaments and biological substances; Z79.899 Other long term (current) drug therapy

== ENCOUNTER 2019-04-27 13:12 | Inpatient (IN) ==
[2019-04-27] MEDS ORDERED: HYDROmorphone INJ 0.5 MG/0.5 ML SYR IV PRN ×2 (14:07→23:00)
[2019-04-27] MEDS ORDERED: ONDANSETRON INJ 2 MG/ML 2 ML VIAL IV STA ×2 (14:07→19:00)
[2019-04-27] MEDS ORDERED: SODIUM CHLORIDE 0.9% 1000ML 1,000 ML IV SCH ×3 (14:15→23:00)
[2019-04-27 15:18] LABS: Albumin Globulin Ratio 1.2 (0.9-2); Albumin Level 4.7 gm/dl (3.4-5.0); BUN Creatinine Ratio 10.8 (10-20); Bilirubin,Total 0.9 mg/dl (0.2-1); Calcium 9.8 mg/dl (8.5-10.1); Creatinine Clr Calc Pharmacy 70.7 ml/min; Est GFR (African American) 68.7; Est GFR (Non-African American) 59.3; Globulin 3.9 gm/dl (2.5-4.0); Total Protein 8.6 gm/dl (6.4-8.2)
[2019-04-27 16:07] LABS: Potassium 3.9 mmol/L (3.5-5.1)
[2019-04-27 16:09] LABS: Basophils # (auto) 0.02 K/uL (0-0.2); Basophils % (auto) 0.2 %; Eosinophils # (auto) 0.01 K/uL (0-0.5); Eosinophils % (auto) 0.1 %; Hematocrit (blood only) 52.2 % (42-52); Hemoglobin 19.9 g/dL (14.0-18.0); Immature Granulocytes # (auto) 0.03 K/uL (0.00-0.02); Immature Granulocytes % (auto) 0.3 %; Lymphocytes # (auto) 0.59 K/uL (1.2-3.4); Lymphocytes % (auto) 5.6 %; Mean Corpuscular Hemoglobin 32.8 pg (25-34); Mean Corpuscular Hgb Conc 38.1 g/dL (32-36); Monocytes # (auto) 0.47 K/uL (0.11-0.59); Monocytes % (auto) 4.4 %; Neutrophils # (auto) 9.51 K/uL (1.4-6.5); Neutrophils % (auto) 89.4 %; Platelet Count 230 K/uL (130-400); RBC Morphology Unremarkable; Red Blood Count 6.07 M/uL (4.7-6.1); White Blood Count 10.63 K/uL (4.8-10.8)
[2019-04-27] MEDS ORDERED: SODIUM CHLORIDE 0.9% 1000ML 1,000 ML IV ONE (16:11)
[2019-04-27] MEDS ORDERED: IOVERSOL 100ml IV PRN (16:26)
[2019-04-27 16:33] LABS: Appearance Urine Clear (Clear); Bacteria Urine Automated Negative (Negative); Bilirubin Urine Negative (Negative); Blood Urine Negative (Negative); Color Urine Yellow; Glucose Urine UA 3+ (Negative); Leukocyte Esterase Urine Negative (Negative); Nitrite Urine Negative (Negative); Protein Urine 1+ (Negative); RBC Urine Automated 0-4 /hpf (0-4); Specific Gravity Urine 1.034 (1.000-1.030); Urobilinogen Urine Negative (Negative)
[2019-04-27 16:35] LABS: Ketones Urine 4+ (Negative)
--- NOTE | 2019-04-27 16:49 | CT Scan Report ---
CT OF THE ABDOMEN AND PELVIS WITH CONTRAST CLINICAL HISTORY: nausea, vomiting, low abdominal pain, diabetic COMPARISON STUDY: CT of the abdomen and pelvis January 28, 2019. TECHNIQUE: Following IV administration of 93 mL of Optiray-320, axial images of the abdomen and pelvi s were obtained from the lung bases to the proximal femurs. Images were reviewed in the axial, sagitt al, and coronal planes. IV contrast was administered without complication. Automated exposure contro l was utilized for the study. A dose lowering technique was utilized adhering to the principles of A LEYDI. CT DOSE: 308.45 mGy.cm FINDINGS: Lung bases are clear. There is mild circumferential distal esophageal wall thickening. Ther e is suspected trace adjacent pneumomediastinum. Of note, the pneumomediastinum is only partially jade ged on this exam. No pneumatosis, free air or portal venous gas is present. The liver, spleen, adrena l glands, kidneys and pancreas are normal with exception of a subcentimeter suspected cyst within the lower pole of the right kidney. There is no hydronephrosis. There is no biliary or pancreatic ductal dilatation. No peripancreatic or pericholecystic infiltration is present. Major vasculature is paten t. The appendix is normal. Apparent colonic wall thickening is likely due to underdistention. There i s no ascites or lymphadenopathy. No suspicious osseous lesion is noted. IMPRESSION: 1. No acute process within the abdomen or pelvis. Normal appendix. No bowel obstruction. 2. Mild circumferential distal esophageal wall thickening which may reflect esophagitis. Suspected tr niels adjacent pneumomediastinum. A chest CT with water-soluble oral contrast is recommended to evaluat e for an esophageal tear. Findings discussed with Dr. Barnard at time of dictation. Electronically signed by: Luiz Davey M.D. 04/27/2019 4:48 PM
--- NOTE | 2019-04-27 17:49 | CT Scan Report ---
CT OF THE CHEST WITHOUT IV CONTRAST CLINICAL HISTORY: possible pneumomediastinum, give 30ml po contrast. COMPARISON STUDY: CT of the abdomen and pelvis performed earlier today. Chest radiograph April 08 CT DOSE: 296.65 mGy.cm TECHNIQUE: Axial images of the chest were obtained without IV contrast. Water soluble oral contrast was administered immediately prior to the CT scan. Images were reviewed in the axial, sagittal, and c oronal planes. IV contrast was not administered for this examination. Automated exposure control was utilized for the study. A dose lowering technique was utilized adhering to the principles of ALARA. FINDINGS: Oral contrast within the esophagus and stomach is noted. There is distal esophageal wall th ickening. Moderate pneumomediastinum is noted. This is predominantly within the mid to inferior poste rior mediastinum. No extraluminal oral contrast is noted. There is no mediastinal fluid. No pleural e ffusion is noted. There is no pneumothorax. Lungs are clear. There is no consolidation to suggest pne umonia. Central airways are patent. Bony thorax and upper abdomen are unremarkable. IMPRESSION: Moderate pneumomediastinum, the etiology of which is not entirely clear on this exam. No oral contrast extravasation. Distal esophageal wall thickening is noted and an occult tear may refle ct the source for pneumomediastinum. Close clinical follow up is recommended. Electronically signed by: Luiz Davey M.D. 04/27/2019 5:47 PM
[2019-04-27] MEDS ORDERED: PIPERACILLIN/TAZOBACTAM 4.5 GM/120 ML BAG IV ONE (18:46)
[2019-04-27] MEDS ORDERED: PIPERACILL/TAZOBAC CONSULT ACTIVE PRN ×2 (18:46→23:00)
[2019-04-27] MEDS ORDERED: DKA GOAL RANGE 150-250 mg/dl ONE ×2 (18:59→19:00)
[2019-04-27] MEDS ORDERED: INSULIN REGULAR 250 UNITS in SODIUM CHLORIDE 0.9% 247.5 ML IV SCH (19:00)
[2019-04-27] MEDS ORDERED: DC ALL PREVIOUSLY ORDERED DIABETES MEDS ONE ×2 (19:00→23:00)
[2019-04-27] MEDS ORDERED: DEXTROSE 50% 50 ML SYRINGE IV PRN (19:30)
[2019-04-27] MEDS ORDERED: GLUCOSE 40% GEL 15 GM TUBE PO PRN (19:30)
[2019-04-27] MEDS ORDERED: NovoLIN-R BOLUS FROM BAG IV ONE ×2 (19:30→20:30)
[2019-04-27] MEDS ORDERED: GLUCOSE 10 TABS/TUBE PO PRN (19:30)
[2019-04-27] MEDS ORDERED: CARBOHYDRATES FOR HYPOGLYCEMIA PO PRN (19:30)
[2019-04-27] MEDS ORDERED: GLUCAGON FOR INJ 1 MG VIAL IM PRN (19:30)
[2019-04-27] MEDS ORDERED: PROMETHAZINE 25 MG/51 ML BAG IV STA (20:02)
[2019-04-27] MEDS ORDERED: INSULIN ASPART 100 UNITS/ML 3 ML PEN SC SCH (21:00)
[2019-04-27] MEDS ORDERED: PIPERACILLIN/TAZOBACTAM 4.5 GM in DEXTROSE 5% 100 ML IV SCH (23:00)
[2019-04-27] MEDS ORDERED: NITROGLYCERIN SL 0.4 MG/TAB TAB SL PRN (23:00)
[2019-04-27] MEDS ORDERED: PENDING D5 1/2NS+20mEq KCL IVF SCH (23:00)
[2019-04-27] MEDS: INSULIN REGULAR 250 UNITS in SODIUM CHLORIDE 0.9% 247.5 ML IV SCH (23:00)
[2019-04-27] MEDS ORDERED: INSULIN PROTOCOL GOAL RANGE ONE (23:00)
--- NOTE | 2019-04-27 23:26 | History and Physical Report ---
DATE OF ADMISSION: 04/27/2019 CHIEF COMPLAINT: Nausea, vomiting and abdominal pain. HISTORY OF PRESENT ILLNESS: This patient is a 34-year-old male with past medical history significant for type 1 diabetes, generalized anxiety disorder and depression who presents with nausea and vomiting since today morning and abdominal pain, says was vomiting every 15minutes, no blood in the vomitus. Because of abdominal pain and his sugars were running high, s he came in to the hospital where he was found to be in diabetic ketoacidosis and also pneumomediastinum , but currently, the patient is hemodynamically stable. He has some pain in his throat and his esophagus. Denies any chest pain. Denies shortness of breath. He has some occasional dry cough. No fevers. Feeling somewhat cold. He has some headache. No dizziness. No blurred visions. He has some sore throat from nausea and vomiting. Currently, no abdominal pain. He has some episode of diarrhea today. No burning micturition. No blood in the urine. No rash. Currently resting comfortably and hemodynamically stable. ALLERGIES: codeine PAST MEDICAL HISTORY: As mentioned above. PAST SURGICAL HISTORY: Dental surgery. MEDICATIONS: The patient is on NovoLog t.i.d. and insulin glargine 25 units in a.m. and 30 units in p.m. FAMILY HISTORY: Significant for mother had breast cancer and depression with multiple psychiatric issues. Sister with suicide. SOCIAL HISTORY: Single. Smoke a half a pack a day. Alcohol rarely. No drug use. Hx of marijuana use as per records.. REVIEW OF SYMPTOMS: As per HPI. Rest of review of systems negative. PHYSICAL EXAMINATION: GENERAL: The patient is of moderate build, not in acute distress. VITAL SIGNS: Temperature 36.7, pulse 100, respiratory rate 18, blood pressure 122/69 and oxygen 100% on room air. HEENT: No pallor. No icterus. Pupils are equal, round and reactive to light. NECK: No JVD. No neck masses. No carotid bruits. CARDIOVASCULAR: S1, S2 heard. Regular rate and rhythm. No murmur. No gallop. RESPIRATORY SYSTEM: Normal AP diameter. No accessory muscle use. No wheezing. No crackles. ABDOMEN: Soft. Bowel sounds present. Nontender. No distention. CENTRAL NERVOUS SYSTEM: Cranial nerves II through XII grossly intact. Nonfocal. EXTREMITIES: No edema. No erythema. LABORATORY DATA: WBC 10.6, hemoglobin 19, hematocrit 42.2 and platelets 230. Sodium 136, potassium 3.9, chloride 99, bicarbonate 16, anion gap 21, BUN 17, creatinine 1.53, serum glucose 372, calcium 9.8, total bilirubin 0.9, AST 30, ALT 31, alkaline phosphatase 141 and lipase 58. Urinalysis positive for glucose and ketones. CTA of abdomen and pelvis shows no acute process. No blurred vision. Normal appendix. No bowel obstruction. Mild circumferential distal esophageal wall thickening which may reflect esophagitis , suspected trace adjacent pneumomediastinum. Chest CT is recommended . CT chest :Moderate pneumomediastinum though etiology of which is not entirely clear on this examination. No oral contrast extravasation. Distal esophagus wall thickness noted and an occult tear may reflect the source of pneumomediastinum. Close clinical followup is recommended. ASSESSMENT AND PLAN: This is a 34-year-old male who presents with nausea, vomiting and found to be in diabetic ketoacidosis and also pneumomediastinum. 1. Pneumomediastinum probably from oesophageal tear from significant nausea and vomiting. CAT scan shows no obvious source. We will monitor in tele floor. Currently hemodynamically stable.CT surgery was notified by ER. Advice for close monitor and to start on iv Zosyn. 2. Diabetic ketoacidosis type 1 diabetes since the age of 30. He is on long acting insulin sliding scale. We will place him on diabetic ketoacidosis protocol with I.V. insulin drip, aggressive fluids and closely follow up the laboratories and closely monitor in tele floor. Pharmacy consult and diabetic education consult. 3. History of depression and generalized anxiety disorder, currently not on any medications. 4. Deep vein thrombosis prophylaxis, sequential compression devices. DISPOSITION: Closely monitor in tele floor. Level 1 full code. MTDD
[2019-04-27] MEDS ORDERED: PHARMACY GLYCEMIC MGMT CONSULT PRN (23:37)
[2019-04-27 23:40] LABS: BUN Creatinine Ratio 8.3 (10-20); Calcium 8.5 mg/dl (8.5-10.1); Creatinine Clr Calc Pharmacy 73.8 ml/min; Est GFR (African American) 73.9; Est GFR (Non-African American) 63.8; Magnesium 1.9 mg/dl (1.8-2.4); Potassium 4.2 mmol/L (3.5-5.1)
[2019-04-27 23:41] LABS: Phosphorus 3.4 mg/dl (2.5-4.9)
--- NOTE | 2019-04-27 23:54 | Emergency Department Note ---
Entered by Lis Lynn acting as a scribe for ED Provider Note CHIEF COMPLAINT: Abdominal pain HISTORY OF PRESENT ILLNESS: The patient is a 34 year old male who presents to the Emergency Room with complaints of persistent lower abdominal pain that began at about 0800 this morning, about 6 hours prior to arrival. The patient rates his pain at a 9/10. He reports nausea and vomiting during this time. The patient states that he has had some bilateral ear pain recently. The patient states that he has not eaten anything unusual or been around anyone else with similar symptoms. He denies any history of abdominal surgeries. The patient reports a history of diabetes. Pt denies LOC, headache, fevers, chills, diaphoresis, visual changes, neck pain, palpitations, chest pain, breathing difficulties, back pain, leg swelling, melena, hematochezia, urinary symptoms, numbness, weakness, lymphadenopathy, rash, or other complaints. REVIEW OF SYSTEMS: See HPI for pertinent positives and negatives. A total of ten systems were reviewed and were otherwise negative. PMHx/PSHx: Diabetes GERD HTN SOCIAL HISTORY: Patient lives at home. PHYSICAL EXAM: GENERAL: Awake, alert, uncomfortable-appearing, in mild distress HENT: Normocephalic, atraumatic. TMs normal bilaterally. Oropharynx u nremarkable. EYES: PERRL. Normal conjunctiva. Sclera non-icteric. NECK: Inspection normal. Non-tender. Supple. No nuchal rigidity. FROM. No masses. RESPIRATORY: Clear to auscultation. No wheezes. No rales. Normal respiratory effort. CARDIAC: Borderline tachycardic rate. Normal rhythm. No murmurs. No rubs. Extremities warm and well perfused. Pulses equal. No JVD. GI: Soft, non-distended. Epigastric tenderness with palpation. No rebound or guarding. No masses. RECTAL: Deferred. MUSCULOSKELETAL: Atraumatic. Chest examination reveals no tenderness. The back is symmetrical on inspection without obvious abnormality. There is no CVA tenderness to palpation. No joint edema. LOWER EXTREMITIES: Calves are equal size bilaterally and non-tender. No edema. No discoloration. NEURO: Normal sensorium. No sensory or motor deficits noted. SKIN: No rash or jaundice noted. EMERGENCY DEPARTMENT COURSE: 1407: Past medical records reviewed. The patient was evaluated in room C6, and a complete history and physical examination were performed. 1506: I reevaluated and updated the patient. He states that he is feeling better. 1645: I discussed the case with Dr. Reyes who states that the patient's CT scan showed an abnormal appearing esophagus with some pneumomediastinum. He recommends the patient getting a chest CT. 1655: I updated the patient on all results and the new chest CT that will be ordered. 1815: I discussed the case with Dr. Reyes who states that the patient's CT is positive for pneumomediastinum but shows no contrast extravasation. 1839: I discussed the case with Dr. Hua-Thoracic Surgery who states to put in a consult for the thoracic team who will see the patient. He recommends NPO, IV Zosyn, and further evaluation by the medicine team. 1846: Upon reevaluation, the patient is resting comfortably and feeling better. 1854: We will repeat the BSG. The patient states that he is currently nauseous. 2005: [facility] MEDICAL DECISION MAKING: C6 Prior records/ancillary studies reviewed. Patient was recently here for nonsustained SVT. He is diabetic Triage Nursing notes reviewed and agree them. The patient's history was concerning for nausea, vomiting, and abdominal pain. Differential diagnosis: Etiologies such as gastroenteritis, food borne illness, infections, appendicitis, diverticulitis, inflammatory bowel disease, GI bleed, biliary pathology, as well as others were entertained. Physical examination findings: As above. Patient was very nauseated, uncomfortable and had epigastric tenderness. ER treatment provided: IV hydration 1 L NSS. IV Zofran IV Dilaudid On reassessment the patient felt better. IV insulin drip IV Zofran IV Phenergan IV Zosyn Diagnostics interpretation by me: The labs revealed an unremarkable CBC except for an elevated hemoglobin level concerning for hemoconcentration. Chemistry panel was concerning for DKA with hyperglycemia, anion gap, and acidosis. Imaging studies: CT scan abdomen pelvis with IV contrast was performed. There was concerns about possible esophageal abnormality and pneumomediastinum. CT scan of the chest with oral contrast was performed and this revealed pneumomediastinum. Consultation: A consultation was placed with Dr. Hua of thoracic surgery. He recommended n.p.o., IV antibiotics and medical admission. A consultation was placed with the [facility] hospitalist, Dr. Hernandez. A consultation was placed with the hospitalist. The case was discussed and diagnostics were reviewed. The patient was evaluated in the ER for further treatment. CRITICAL CARE: I have personally spent 45 minutes of critical care time in the direct management of this patient. This includes bedside care, interpretation of diagnostic studies, and testing, discussion with consultants, patient, and family members, and other required patient management activities. This 45 minutes is in excess of all separately billable procedures. IMPRESSION: DKA Esophageal perforation Vomiting Upper abdominal pain PLAN: Admission The scribe's documentation has been prepared under my direction and personally reviewed by me in its entirety. I confirm that the note above accurately reflects all work, treatment, procedures, and medical decision making performed by me. Impression & Plan DKA (diabetic ketoacidoses), Esophageal perforation, Vomiting, Upper abdominal pain Past Med/Surg History Medical History DKA (diabetic ketoacidoses) (Acute) Epigastric pain (Acute) GERD (gastroesophageal reflux disease) (Acute) Diabetes (Chronic) Hypertension (Chronic) Major depressive disorder, recurrent episode Sebaceous cyst (Acute) Suicidal ideation (Acute) Tobacco abuse disorder Hx of psoriasis Surgical History No pertinent past surgical history Family History Other No significant family history Social History Preferred Language: Georgian Communication Ability: Effective Beliefs That Will Affect Care: None marital status: Single Current Living Situation: Alone current occupational status: employed Feels Safe at Home: Yes Safety Concerns: Feels Safe At This Time Smoking Status: Current every day smoker Tobacco Type: cigarettes ; Tobacco Cessation Education Requested by Patient: No Hx Alcohol Use: No Hx Substance Use: No Results & Data Vital Signs Vital Signs - 24 hr 04/27/19 13:15 04/27/19 14:26 04/27/19 14:31 Temperature 36.7 C Temperature Source Oral Sepsis Recent Fever Within 48 Hours No Sepsis New/Unexplained Change in Mental Status No Sepsis Action Taken by Nursing No Action Required Pulse Rate 104 H Pulse Rate [Apical] 77 Pulse Rhythm Regular Pulse Strength Normal Respiratory Rate 20 18 Respiratory Effort / Characteristics Non-Labored Spontaneous Respiratory Depth Normal Normal Respiratory Pattern Regular Blood Pressure 138/88 Blood Pressure [Left Arm] 142/85 H Blood Pressure Mean 104 Blood Pressure Mean [Left Arm] 104 Blood Pressure Position Sitting Pulse Oximetry 100 95 99 Oxygen Delivery Method Room Air Room Air Room Air 04/27/19 15:30 04/27/19 18:02 04/27/19 20:34 Temperature Temperature Source Sepsis Recent Fever Within 48 Hours Sepsis New/Unexplained Change in Mental Status Sepsis Action Taken by Nursing Pulse Rate Pulse Rate [Apical] 87 97 H 100 H Pulse Rhythm Pulse Strength Respiratory Rate 18 18 18 Respiratory Effort / Characteristics Respiratory Depth Respiratory Pattern Blood Pressure Blood Pressure [Left Arm] 135/73 137/73 122/69 Blood Pressure Mean Blood Pressure Mean [Left Arm] 93 94 86 Blood Pressure Position Pulse Oximetry 98 100 100 Oxygen Delivery Method Room Air Room Air Room Air Home Medications Current Medication List: was personally reviewed by me Laboratory Data Attestation: I reviewed the patient's lab results. Result diagrams: 04/27/19 14:14 04/27/19 23:13 Lab Results 04/27/19 04/27/19 04/27/19 Range/Units 14:14 14:14 15:35 WBC 10.63 (4.8-10.8) K/uL RBC 6.07 (4.7-6.1) M/uL Hgb 19.9 H (14.0-18.0) g/dL Hct 52.2 H (42-52) % MCV 86.0 (80-100) fL MCH 32.8 (25-34) pg MCHC 38.1 H (32-36) g/dL Plt Count 230 (130-400) K/uL Immature Gran % (Auto) 0.3 % Neut % (Auto) 89.4 % Lymph % (Auto) 5.6 % [place] % (Auto) 4.4 % Eos % (Auto) 0.1 % Baso % (Auto) 0.2 % Immature Gran # (Auto) 0.03 H (0.00-0.02) K/uL Neut # (Auto) 9.51 H (1.4-6.5) K/uL Lymph # (Auto) 0.59 L (1.2-3.4) K/uL [place] # (Auto) 0.47 (0.11-0.59) K/uL Eos # (Auto) 0.01 (0-0.5) K/uL Baso # (Auto) 0.02 (0-0.2) K/uL RBC Morphology Unremarkable Sodium 136 (136-145) mmol/L Potassium 3.9 (3.5-5.1) mmol/L Chloride 99 (98-107) mmol/L Carbon Dioxide 16 L (21-32) mmol/L Anion Gap 21.0 H (3-11) BUN 17 (7-18) mg/dl Creatinine 1.53 H (0.6-1.4) mg/dl Est Cr Clr Drug Dosing 70.7 ml/min Est GFR ( Amer) 68.7 Est GFR (Non-Af Amer) 59.3 BUN/Creatinine Ratio 10.8 (10-20) Glucose 299 H (70-99) mg/dl POC Glucose (70-99) Calcium 9.8 (8.5-10.1) mg/dl Total Bilirubin 0.9 (0.2-1) mg/dl AST 13 L (15-37) U/L ALT 31 (12-78) U/L Alkaline Phosphatase 141 H (45-117) U/L Total Protein 8.6 H (6.4-8.2) gm/dl Albumin 4.7 (3.4-5.0) gm/dl Globulin 3.9 (2.5-4.0) gm/dl Albumin/Globulin Ratio 1.2 (0.9-2) Lipase 58 L (73-393) U/L Urine Color Urine Appearance (Clear) Urine pH (4.5-7.5) Ur Specific Math[place] (1.000-1.030) Urine Protein (Negative) Urine Glucose (UA) (Negative) Urine Ketones (Negative) Urine Blood (Negative) Urine Nitrite (Negative) Urine Bilirubin (Negative) Urine Urobilinogen (Negative) Ur Leukocyte Esterase (Negative) Urine WBC (Auto) (0-5) /hpf Urine RBC (Auto) (0-4) /hpf U Hyaline Cast (Auto) (0-5) /lpf U Epithel Cells (Auto) (0-5) /lpf Urine Bacteria (Auto) (Negative) 04/27/19 04/27/19 04/27/19 Range/Units 16:00 18:50 21:34 WBC (4.8-10.8) K/uL RBC (4.7-6.1) M/uL Hgb (14.0-18.0) g/dL Hct (42-52) % MCV (80-100) fL MCH (25-34) pg MCHC (32-36) g/dL Plt Count (130-400) K/uL Immature Gran % (Auto) % Neut % (Auto) % Lymph % (Auto) % [place] % (Auto) % Eos % (Auto) % Baso % (Auto) % Immature Gran # (Auto) (0.00-0.02) K/uL Neut # (Auto) (1.4-6.5) K/uL Lymph # (Auto) (1.2-3.4) K/uL [place] # (Auto) (0.11-0.59) K/uL Eos # (Auto) (0-0.5) K/uL Baso # (Auto) (0-0.2) K/uL RBC Morphology Sodium (136-145) mmol/L Potassium (3.5-5.1) mmol/L Chloride (98-107) mmol/L Carbon Dioxide (21-32) mmol/L Anion Gap (3-11) BUN (7-18) mg/dl Creatinine (0.6-1.4) mg/dl Est Cr Clr Drug Dosing ml/min Est GFR ( Amer) Est GFR (Non-Af Amer) BUN/Creatinine Ratio (10-20) Glucose (70-99) mg/dl POC Glucose 372 H* 333 H* (70-99) Calcium (8.5-10.1) mg/dl Total Bilirubin (0.2-1) mg/dl AST (15-37) U/L ALT (12-78) U/L Alkaline Phosphatase (45-117) U/L Total Protein (6.4-8.2) gm/dl Albumin (3.4-5.0) gm/dl Globulin (2.5-4.0) gm/dl Albumin/Globulin Ratio (0.9-2) Lipase (73-393) U/L Urine Color Yellow Urine Appearance Clear (Clear) Urine pH 5.0 (4.5-7.5) Ur Specific [place] 1.034 H (1.000-1.030) Urine Protein 1+ H (Negative) Urine Glucose (UA) 3+ H (Negative) Urine Ketones 4+ H (Negative) Urine Blood Negative (Negative) Urine Nitrite Negative (Negative) Urine Bilirubin Negative (Negative) Urine Urobilinogen Negative (Negative) Ur Leukocyte Esterase Negative (Negative) Urine WBC (Auto) 1-5 (0-5) /hpf Urine RBC (Auto) 0-4 (0-4) /hpf U Hyaline Cast (Auto) 1-5 (0-5) /lpf U Epithel Cells (Auto) 10-20 H (0-5) /lpf Urine Bacteria (Auto) Negative (Negative) Administered Medications Sodium Chloride (Nss 1000ml) 1,000 mls @ 200 mls/hr IV .Q5H [facility] Stop: 05/27/19 22:59 Last Admin: 04/27/19 23:54 Dose: 200 mls/hr Documented by: [id number] Insulin Human Regular 250 (units/ Sodium Chloride) 250 mls @ 1.8 mls/hr IV .Q24H GIL; Protocol Stop: 05/27/19 22:59 Last Admin: 04/27/19 23:00 Dose: 1.8 units/hr, 1.8 mls/hr Documented by: [id number] Cosigned by: [id number] Discontinued Medications Hydromorphone HCl (Dilaudid) 0.5 mg IV Q15M PRN PRN Reason: Pain Stop: 05/11/19 14:06 Last Admin: 04/27/19 14:29 Dose: 0.5 mg Documented by: [id number] Sodium Chloride (Nss 1000ml) 1,000 mls @ 999 mls/hr IV .Q1H1M GIL Stop: 04/27/19 15:15 Last Infusion: 04/27/19 16:01 Dose: 0 mls/hr Documented by: [id number] Admin: 04/27/19 14:29 Dose: 999 mls/hr Documented by: [id number] Sodium Chloride (Nss 1000ml) 1,000 mls @ 999 mls/hr IV .Q1H1M ONE Stop: 04/27/19 17:11 Last Infusion: 04/27/19 23:36 Dose: 0 mls/hr Documented by: [id number] Admin: 04/27/19 16:59 Dose: 999 mls/hr Documented by: [id number] Piperacillin Sod/Tazobactam Sod (Zosyn) 4.5 gm in 120 mls @ 240 mls/hr IV NOW ONE Stop: 04/27/19 19:15 Last Infusion: 04/27/19 23:36 Dose: 0 mls/hr Documented by: [id number] Admin: 04/27/19 19:14 Dose: 240 mls/hr Documented by: [id number] Insulin Human Regular 250 (units/ Sodium Chloride) 250 mls @ 1.8 mls/hr IV .Q24H GIL; Protocol Stop: 05/27/19 18:59 Last Admin: 04/27/19 20:32 Dose: 1.8 unit/hr, 1.8 mls/hr Documented by: [id number] Cosigned by: [id number] Promethazine HCl (Phenergan) 25 mg in 51 mls @ 204 mls/hr IV NOW STA Stop: 04/27/19 20:16 Last Infusion: 04/27/19 23:36 Dose: 0 mls/hr Documented by: [id number] Admin: 04/27/19 20:10 Dose: 204 mls/hr Documented by: [id number] Insulin Human Regular (Novolin R Bolus From Bag) 7 units IV ONE ONE Stop: 04/27/19 19:31 Last Admin: 04/27/19 21:35 Dose: Not Given Documented by: [id number] Insulin Human Regular (Novolin R Bolus From Bag) 2 units IV ONE ONE Stop: 04/27/19 20:31 Last Admin: 04/27/19 20:32 Dose: 2 units Documented by: [id number] Cosigned by: [id number] Ioversol (Optiray 320 100ml) 93 ml IV ONCE PRN PRN Reason: Interaction Checking Stop: 05/01/19 16:25 Last Admin: 04/27/19 16:27 Dose: 93 ml Documented by: [id number] Miscellaneous (Insulin Protocol Dka Goal Range) 1 ea N/A ONE ONE Stop: 04/27/19 19:00 Last Admin: 04/27/19 21:45 Dose: Not Given Documented by: [id number] Miscellaneous (Insulin Protocol Dka Goal Range) 1 ea N/A ONE ONE Stop: 04/27/19 19:01 Last Admin: 04/27/19 21:46 Dose: Not Given Documented by: [id number] Miscellaneous Information (Dc All Previously Ordered Diabetes Meds) 1 ea N/A ONE ONE Stop: 04/27/19 19:01 Last Admin: 04/27/19 21:45 Dose: Not Given Documented by: [id number] Ondansetron HCl (Zofran) 4 mg IV NOW STA Stop: 04/27/19 14:08 Last Admin: 04/27/19 14:29 Dose: 4 mg Documented by: [id number] Ondansetron HCl (Zofran) 4 mg IV NOW STA Stop: 04/27/19 19:01 Last Admin: 04/27/19 19:15 Dose: 4 mg Documented by: [id number] Imaging Data Radiologist's Impression: Radiology results as stated below per my review and the radiologist's interpretation: CT OF THE ABDOMEN AND PELVIS WITH CONTRAST CLINICAL HISTORY: nausea, vomiting, low abdominal pain, diabetic COMPARISON STUDY: CT of the abdomen and pelvis January 28, 2019. TECHNIQUE: Following IV administration of 93 mL of Optiray-320, axial images of the abdomen and pelvis were obtained from the lung bases to the proximal femurs. Images were reviewed in the axial, sagittal, and coronal planes. IV contrast was administered without complication. Automated exposure control was utilized for the study. A dose lowering technique was utilized adhering to the principles of ALARA. CT DOSE: 308.45 mGy.cm FINDINGS: Lung bases are clear. There is mild circumferential distal esophageal wall thickening. There is suspected trace adjacent pneumomediastinum. Of note, the pneumomediastinum is only partially imaged on this exam. No pneumatosis, free air or portal venous gas is present. The liver, spleen, adrenal glands, kidneys and pancreas are normal with exception of a subcentimeter suspected cyst within the lower pole of the right kidney. There is no hydronephrosis. There is no biliary or pancreatic ductal dilatation. No peripancreatic or pericholecystic infiltration is present. Major vasculature is patent. The appendix is normal. Apparent colonic wall thickening is likely due to underdistention. There is no ascites or lymphadenopathy. No suspicious osseous lesion is noted. IMPRESSION: 1. No acute process within the abdomen or pelvis. Normal appendix. No bowel o bstruction. 2. Mild circumferential distal esophageal wall thickening which may reflect esophagitis. Suspected trace adjacent pneumomediastinum. A chest CT with water- soluble oral contrast is recommended to evaluate for an esophageal tear. Findings discussed with Dr. Barnard at time of dictation. Electronically signed by: Luiz Davey M.D. 04/27/2019 4:[address] OF THE CHEST WITHOUT IV CONTRAST CLINICAL HISTORY: possible pneumomediastinum, give 30ml po contrast. COMPARISON STUDY: CT of the abdomen and pelvis performed earlier today. Chest radiograph April 08, 2019 CT DOSE: 296.65 mGy.cm TECHNIQUE: Axial images of the chest were obtained without IV contrast. Water soluble oral contrast was administered immediately prior to the CT scan. Images were reviewed in the axial, sagittal, and coronal planes. IV contrast was not administered for this examination. Automated exposure control was utilized for the study. A dose lowering technique was utilized adhering to the principles of ALARA. FINDINGS: Oral contrast within the esophagus and stomach is noted. There is distal esophageal wall thickening. Moderate pneumomediastinum is noted. This is predominantly within the mid to inferior posterior mediastinum. No extraluminal oral contrast is noted. There is no mediastinal fluid. No pleural effusion is noted. There is no pneumothorax. Lungs are clear. There is no consolidation to suggest pneumonia. Central airways are patent. Bony thorax and upper abdomen are unremarkable. IMPRESSION: Moderate pneumomediastinum, the etiology of which is not entirely clear on this exam. No oral contrast extravasation. Distal esophageal wall thickening is noted and an occult tear may reflect the source for pneumomediastinum. Close clinical follow up is recommended. Electronically signed by: Luiz Davey M.D. 04/27/2019 5:47 PM Discharge Plan Visit Data *Final* Discharge Date/Time: 04/27/19 22:45 Chief Complaint: Vomiting Stated Complaint: VOMITING ED Provider: Cornelius Barnard Discharge Problem: DKA (diabetic ketoacidoses), Esophageal perforation, Vomiting, Upper abdominal pain Patient Disposition: Admitted As Inpatient Discharge Instructions Interventions: ED Discharge Assessment Last Done: 04/27/19 22:45 Discharge Problem: DKA (diabetic ketoacidoses) Qualifiers: Diabetes mellitus type: type 1 Diabetes mellitus complication detail: without coma Qualified Code(s): E10.10 - Type 1 diabetes mellitus with ketoacidosis without coma Vomiting Qualifiers: Vomiting type: unspecified Vomiting Intractability: non-intractable Nausea presence: with nausea Qualified Code(s): R11.2 - Nausea with vomiting, unspecified The scribe's documentation has been prepared under my direction and personally reviewed by me in its entirety. I confirm that the note above accurately reflects all work, treatment, procedures, and medical decision making performed by me.
[2019-04-27] MEDS: FAMOTIDINE 20 MG in SYRINGE 3 ML IV SCH (23:57)
[2019-04-28] MEDS: D5W AND 1/2NSS + 20MEQ KCL 20 MEQ/1,000 ML BAG IV SCH ×5 (00:51→20:54)
[2019-04-28] MEDS: ONDANSETRON INJ 2 MG/ML 2 ML VIAL IV PRN ×2 (01:30→07:50)
[2019-04-28] MEDS: PIPERACILLIN/TAZOBACTAM 3.375 GM in DEXTROSE 5% 100 ML IV SCH ×3 (01:39→16:55)
[2019-04-28 03:39] LABS: BUN Creatinine Ratio 7.8 (10-20); Est GFR (African American) 77.8; Est GFR (Non-African American) 67.2; Magnesium 1.9 mg/dl (1.8-2.4); Potassium 4.2 mmol/L (3.5-5.1)
[2019-04-28 03:43] LABS: Phosphorus 2.7 mg/dl (2.5-4.9)
[2019-04-28] MEDS ORDERED: GLUCAGON FOR INJ 1 MG VIAL SQ PRN (05:00)
[2019-04-28] MEDS ORDERED: GLUCOSE 10 TABS/TUBE PO PRN (05:00)
[2019-04-28] MEDS ORDERED: GLUCOSE 40% GEL 15 GM TUBE PO PRN (05:00)
[2019-04-28] MEDS ORDERED: CARBOHYDRATES FOR HYPOGLYCEMIA PO PRN (05:00)
[2019-04-28] MEDS ORDERED: DEXTROSE 50% 50 ML SYRINGE IV PRN (05:00)
[2019-04-28 06:54] LABS: Estimated Average Glucose 280 mg/dl; Hemoglobin A1C 11.4 % (4.5-5.6)
[2019-04-28 07:03] LABS: BUN Creatinine Ratio 6.2 (10-20); Calcium 8.1 mg/dl (8.5-10.1); Creatinine Clr Calc Pharmacy 72.7 ml/min; Est GFR (African American) 72.7; Est GFR (Non-African American) 62.7; Potassium 4.1 mmol/L (3.5-5.1)
[2019-04-28 07:11] LABS: Phosphorus 2.1 mg/dl (2.5-4.9)
[2019-04-28 07:16] LABS: Hematocrit (blood only) 42.6 % (42-52); Hemoglobin 16.2 g/dL (14.0-18.0); Mean Corpuscular Volume 86.8 fL (80-100); Platelet Count 176 K/uL (130-400); Red Blood Count 4.91 M/uL (4.7-6.1)
--- NOTE | 2019-04-28 07:16 | XRay Report ---
XR chest 1V portable CLINICAL HISTORY: pneumomediastinum COMPARISON STUDY: Chest CT April 27, 2019. FINDINGS: Lung volumes are normal. Lungs are clear. There is no pneumothorax or pleural effusion. Car diac size is normal. Mediastinal contours are normal. There is no evidence for pulmonary edema. Pneum omediastinum shown on chest CT of April 27, 2019 is not evident by radiography. IMPRESSION: 1. No acute cardiopulmonary findings. 2. No pneumomediastinum identified by radiography. Electronically signed by: Luiz Davey M.D. 04/28/2019 7:15 AM
[2019-04-28 07:17] LABS: Basophils # (auto) 0.02 K/uL (0-0.2); Basophils % (auto) 0.2 %; Immature Granulocytes # (auto) 0.02 K/uL (0.00-0.02); Immature Granulocytes % (auto) 0.2 %; Lymphocytes # (auto) 0.78 K/uL (1.2-3.4); Lymphocytes % (auto) 7.7 %; Monocytes # (auto) 0.89 K/uL (0.11-0.59); Monocytes % (auto) 8.8 %; Neutrophils # (auto) 8.39 K/uL (1.4-6.5); Neutrophils % (auto) 83.1 %
[2019-04-28] MEDS: FAMOTIDINE 20 MG in SYRINGE 3 ML IV SCH ×2 (07:40→20:54)
[2019-04-28] MEDS: INSULIN ASPART 100 UNITS/ML 3 ML PEN SC SCH ×4 (07:41→20:56)
--- NOTE | 2019-04-28 08:02 | Consultation Report ---
DATE OF CONSULTATION: 04/28/2019 REASON FOR CONSULTATION: Pneumomediastinum. HISTORY OF PRESENT ILLNESS: This is a 34-year-old male I evaluated in room 230 at approximately 7:30 this morning. The patient says that he has a known history of diabetes and he says his sugars usually run anywhere from 120-180 exhibiting a reasonable control. The patient says he was in his usual state of health until yesterday morning, he woke up with what he describes as an acidic taste in his mouth and then he began having nausea, vomiting on several occasions. The patient says following his nausea, vomiting, he developed some pain in the epigastric area of his abdomen as well as some pain just under his sternum, so because of this, he came into the Emergency Department. In the Emergency Department, the patient did have diagnostic studies performed including labs where his CBC revealed a white blood cell count within the normal range. The patient's hemoglobin was 19.9 and hematocrit was 52.2, his platelet count was noted to be within the normal range. The patient was noted to be hyperglycemic and felt to be in DKA, so plans were timely made to admit the patient to the hospital. Imaging studies were performed including a CT scan of the abdomen and pelvis which showed no acute process in the abdomen or pelvis, specifically no appendicitis or bowel obstruction. There was some circumferential distal esophageal wall thickening, felt to possibly represent esophagitis, but there was some trace pneumomediastinum adjacent to the esophagus noted, and because of this, a CT scan of the chest was performed. This did show some moderate pneumomediastinum; however, oral contrast that was given for this study did not exhibit any extravasation. Distal esophageal wall thickening was noted. I did question the patient on numerous symptoms. He has not had any recent falls, head injuries and he denies visual changes, tinnitus. He does not have any sore throat. Currently, he denies any chest pain. He is not short of breath. He said that he has not had any further nausea, vomiting since admission to the hospital. I did question him on his nausea, vomiting and he believes that he did vomit some blood. At the present time, he does not have any abdominal pain. He has not had any fever, shakes, or chills. He denies dysuria. He has no history of DVT or PE. He says he does have some anxiety. At the time of my exam, the patient was resting comfortably in bed. DICTATION ENDS HERE
--- NOTE | 2019-04-28 08:08 | Consultation Report ---
DATE OF CONSULTATION: 04/28/2019 At the time of my exam, the patient is resting comfortably in bed without complaints. PAST MEDICAL HISTORY: Includes the followin. Diabetes, for which the patient takes insulin. 2. Anxiety. 3. Depression. PAST SURGICAL HISTORY: Includes wisdom teeth extractions. ALLERGIES: None. HOME MEDICATIONS: Include: 1. NovoLog insulin. 2. Lantus insulin. CURRENT MEDICATIONS: Include: 1. Pepcid 20 mg twice daily. 2. Insulin drip. 3. Intravenous fluids with potassium supplement. 4. Intravenous Zosyn. SOCIAL HISTORY: The patient has smoked for at least 16 years up to half pack of cigarettes per day. He denies alcohol use. FAMILY HISTORY: He says heart disease runs in his family. REVIEW OF SYSTEMS: As noted above. PHYSICAL EXAMINATION: VITAL SIGNS: The patient's blood pressure is 130/73, pulse is 90 and regular, respirations are 16 and unlabored, temperature is afebrile with temperature of 36.8, his pulse ox 98% on room air. GENERAL: He is alert. He is oriented x3. He is in no distress. HEENT: Head is atraumatic, normocephalic. Eyes: Pupils equal, round, reactive to light and accommodation. Extraocular motions are intact. Ears: Auditory acuity is grossly intact. Nose: Nasal patency was intact. Sinuses are nontender. His mouth is moist without exudates. NECK: Supple. There is no tracheal shift or stridor. There is no subcutaneous emphysema or crepitus noted in the soft tissue of his neck. CARDIOVASCULAR: Regular rate and rhythm. LUNGS: Clear to auscultation without rales, rhonchi or wheezing. His chest wall was palpated. There is no crepitus noted in the soft tissue of his chest wall. ABDOMEN: Soft, nontender, nondistended. There is no pain with palpation. There is no crepitus or subcutaneous emphysema noted in the soft tissue of his abdomen. EXTREMITIES: Revealed no cyanosis, clubbing, or edema. He had palpable radial and DP pulses bilaterally. NEUROLOGIC: Revealed cranial nerves II-XII are grossly intact. No focal deficits are noted. DIAGNOSTIC DATA: As noted above. IMPRESSION: A 34-year-old male with pneumomediastinum. PLAN: I discussed the case with my attending, Dr. Whitlark. It does appear that this may be a Doris-Piedra tear with microperforation esophagus causing the pneumomediastinum. The patient did have labs repeated this morning which showed that he does not have a leukocytosis, his white blood cell count is within the normal range. A chest x-ray was also performed today that did not show any pneumomediastinum on plain chest x-ray. There is no pleural effusion. As the patient's exam is benign, does not have leukocytosis, he is afebrile, his imaging this morning is benign, we will keep the patient n.p.o., maintain him on IV Zosyn. We will plan on getting a swallowing study on 04/30/2019, and if the swallowing study does not show any contrast extravasation or other concerning findings, we may repeat a CT scan of his chest and then if these studies did not reveal any concerning findings, may consider allowing the patient to begin taking oral intake at that time. I did discuss with the patient the importance of keeping him n.p.o. to allow any potential microperforation of esophagus heal properly. He did express his understanding. I also discussed this with the primary medical service. Further recommendations will be made based on his clinical course as it unfolds and his care for his other medical conditions, specifically his diabetes will be directed by the medical service.
[2019-04-28] MEDS ORDERED: INSULIN GLARGINE SOLOSTAR 100 UNITS/ML 3 ML PEN SC STA (10:06)
--- NOTE | 2019-04-28 10:22 | Pharmacy Report ---
Glycemic Control Consultation - Date of Service April 28, 2019 - Scope Scope: Glycemic Pharmacist consulted by Dr Hernandez on 04/27/19 for glycemic control and to write orders per [facility] inpatient glycemic control protocol - Objective Weight: 70.8 kg Accuchecks BSG (last 24hrs): 04/27/19 04/27/19 04/27/19 14:14 18:50 21:34 Glucose 299 H POC Glucose 372 H* 333 H* 04/27/19 04/27/19 04/27/19 22:25 22:28 23:13 Glucose 260 H POC Glucose 339 H* 327 H* 04/27/19 04/28/19 04/28/19 23:33 00:29 01:32 Glucose POC Glucose 283 H 213 H 241 H 04/28/19 04/28/19 04/28/19 02:37 03:00 03:32 Glucose 291 H POC Glucose 276 H 263 H 04/28/19 04/28/19 04/28/19 04:34 05:31 06:14 Glucose 295 H POC Glucose 290 H 401 H* 04/28/19 04/28/19 04/28/19 06:32 07:27 08:36 Glucose POC Glucose 285 H 272 H 249 H 04/28/19 09:29 Glucose POC Glucose 254 H Laboratory Data (last 24hrs): 04/27/19 04/27/19 04/27/19 14:14 15:35 23:13 Potassium 3.9 4.2 Carbon Dioxide 16 L 13 L Anion Gap 21.0 H 21.0 H Creatinine 1.53 H 1.44 H Est Cr Clr Drug Dosing 70.7 73.8 04/28/19 04/28/19 03:00 06:14 Potassium 4.2 4.1 Carbon Dioxide 14 L 18 L Anion Gap 17.0 H 14.0 H Creatinine 1.38 1.46 H Est Cr Clr Drug Dosing 77.0 72.7 HbA1c: Hemoglobin A1c 11.4 % (4.5-5.6) H 04/28/19 03:00 - Recent Pertinent Medications Outpatient Anti-diabetic Regimen: * Lantus 25u Qam, 30u Qpm, Novolog SSI * A1c = 11.4 % 04/28/19 - Assessment & Plan Assessment & Plan: ASSESSMENT: * Pt is a 34yo type 1 diabetic p/w DKA. Started on an insulin infsn overnight, he remains on the infsn. Currently he is still acidotic. CO2=18, AG=14. At this juncture he is not ready to come off the gtt. However, we will start to formulate an infsn --> basal/bolus conversion. Will watch q4 PRP. * NPO status will continue. If he is ready to come off the gtt tonight: starting with wt/stress II for correctional would be reasonable. PLAN FOR INPATIENT GLYCEMIC CONTROL: * Starting IV insulin infusion per moderate stress protocol * Goal Range 120 - 200 mg/dl * Indicated in the setting of DKA * Basal insulin * Lantus 25 units to be given this AM. Will add HS scale tonight. See MAR for further details. * Bolus insulin * NovoLog per scale ACHS or Q6hrs while NPO * per insulin calculator * Please note that the plan above was derived based on current level of insulin resistance and hospital stress. These recommendations are appropriate for inpatient admission only. Plan of care upon discharge will need to be reassessed to avoid potential outpatient hypo/hyperglycemia. Thank you.
[2019-04-28 11:23] LABS: BUN Creatinine Ratio 5.8 (10-20); Calcium 8.2 mg/dl (8.5-10.1); Creatinine Clr Calc Pharmacy 81.7 ml/min; Est GFR (African American) 83.7; Est GFR (Non-African American) 72.2; Magnesium 1.9 mg/dl (1.8-2.4); Phosphorus 1.8 mg/dl (2.5-4.9); Potassium 3.8 mmol/L (3.5-5.1)
[2019-04-28] MEDS ORDERED: POTASSIUM PHOS 3 MMOL/1 ML INFUSION IV STA (13:38)
[2019-04-28] MEDS ORDERED: POTASSIUM PHOSPHATE 9 MMOL in SODIUM CHLORIDE 0.9% 250 ML IV SCH (13:45)
[2019-04-28 15:26] LABS: BUN Creatinine Ratio 5.4 (10-20); Calcium 8.2 mg/dl (8.5-10.1); Creatinine Clr Calc Pharmacy 81.1 ml/min; Est GFR (African American) 82.9; Est GFR (Non-African American) 71.5; Magnesium 1.9 mg/dl (1.8-2.4); Phosphorus 1.6 mg/dl (2.5-4.9); Potassium 3.3 mmol/L (3.5-5.1)
[2019-04-28] MEDS ORDERED: AMOXICILLIN/CLAVULANATE 875 MG TAB PO SCH (17:00)
--- NOTE | 2019-04-28 17:18 | Hospitalist Progress Note ---
Date of Service April 28, 2019 Assessment & Plan (1) DKA (diabetic ketoacidoses): This is a 34-year-old male with history of type 1 diabetes, (diagnosed at age 30) Presented with intractable nausea vomiting Presented with DKA with hyperglycemia, metabolic acidosis with high anion gap Patient started with IV insulin drip per moderate stress protocol Appreciate input from pharmacy for glycemic management Goal range blood sugar [id number] (2) Upper abdominal pain: Possible for intractable nausea vomiting precipitated by DKA leading to Doris-Piedra tear CT of abdomen pelvis shows no acute process Mild circumferential distal esophageal wall thickening which may reflect esophagitis Suspected trace adjacent pneumomediastinum Patient does not have any complaint of nausea vomiting or abdominal pain Symptoms resolved after started with IV insulin infusion and IV fluid resuscitation Patient is continue to keep n.p.o. for possible esophageal tear (3) Vomiting: (4) Esophageal perforation: Secondary to intractable nausea and vomiting precipitated by DKA CT chest: Shows moderate pneumomediastinum to etiology of which is not entirely clear on the exam No oral contrast extravasation Distal esophageal wall thickness noted: An occult tear may reflect the source of pneumomediastinum Cardiothoracic surgery team consulted Appreciate input Recommends conservative management only Strict n.p.o. Empiric IV antibiotic with Zosyn Recommend barium swallow testing done on Tuesday If no indication of barium contrast noted Repeat CT chest could be done to assess resolution of pneumomediastinum Continue to monitor closely (5) Type 1 diabetes mellitus: Type 1 diabetes diagnosed age 30 Does not have very good control Mentions of a prior episodes of DKA Follows with [facility] glycemic pharmacy at [facility] At baseline poorly controlled diabetes A1c 11.4 Home antidiabetic regimen: Lantus 25 units a.m./30 units p.m. NovoLog sliding scale Presents with DKA, on IV insulin drip (6) Left otitis media with effusion: Patient mentions he has been compliant with his insulin regimen, Has been feeling tired and fatigued for the past 2 to 3 days Thinks that he had left ear infection: Had ongoing left ear ache with radiation down to left jaw Arthroscopic exam of left ear: Showed marked erythema of left ear canal, with dullness and fluid level at the tympanic members Right ear: Normal finding Ordered for Ciprodex eardrop Patient is already on broad-spectrum antibiotic Zosyn Subjective Complains of mild epigastric discomfort, No nausea vomiting Afebrile, vitals remains stable On IV insulin protocol for DKA No hypoxia no shortness of breath or dyspnea on exertion noted Reports of having left ear ache for some time Thinks he is DKA possibly precipitated by ear infection Review of Systems Review of Systems: All systems reviewed & are unremarkable except as noted in HPI & below Physical Exam Constitutional: WD/WN, vitals as above no acute distress Eyes: + anicteric sclerae ENMT: Ears: + TM abnormality (Otoscopic exam: Left ear canal: Redness noted, with dullness on tympanic membrane,/right ear: Normal finding); no hearing imp airment Neck: trachea midline, no thyromegaly Respiratory: normal respiratory effort, lungs clear to auscultation Cardiovascular: RRR, no murmur, no edema Gastrointestinal (Abdomen): normal bowel sounds, soft, nontender, no hepatosplenomegaly Percussion/Palpation: + abdomen tender (Epigastric tenderness) and abdomen soft Musculoskeletal: no cyanosis or clubbing, extremities motor strength 5/5 Skin: no rashes, warm and dry Neurologic: PERRL, EOMI, accommodation nl, no face palsy, no dysarthria Psychiatric: A+Ox3, euthymic affect Results & Data Vital Signs (Past 12 Hours) Vital Signs Temp Pulse Resp BP BP Pulse Ox 04/28/19 15:04 36.5 C 81 19 115/74 99 04/28/19 11:46 36.9 C 76 18 111/66 98 04/28/19 07:44 36.5 C 91 H 18 130/88 100 (1) DKA (diabetic ketoacidoses) Diabetes mellitus complication detail: without coma Diabetes mellitus type: type 1 Qualified Code(s): E10.10 - Type 1 diabetes mellitus with ketoacidosis without coma (2) Vomiting Nausea presence: with nausea Vomiting Intractability: non-intractable Vomiting type: unspecified Qualified Code(s): R11.2 - Nausea with vomiting, unspecified (3) Type 1 diabetes mellitus Diabetes mellitus complication status: with hyperglycemia Qualified Code(s): E10.65 - Type 1 diabetes mellitus with hyperglycemia
[2019-04-28] MEDS: CIPRO 0.2%/HYDROCORTISONE 1% OTIC SUSP 10 ML BTL OT SCH (18:43)
[2019-04-28 19:45] LABS: BUN Creatinine Ratio 5.2 (10-20); Calcium 8.2 mg/dl (8.5-10.1); Creatinine Clr Calc Pharmacy 93.2 ml/min; Est GFR (African American) 98.1; Est GFR (Non-African American) 84.6; Magnesium 1.9 mg/dl (1.8-2.4); Potassium 3.4 mmol/L (3.5-5.1)
[2019-04-28 19:46] LABS: Phosphorus 2.1 mg/dl (2.5-4.9)
[2019-04-28] MEDS ORDERED: INSULIN GLARGINE SOLOSTAR 100 UNITS/ML 3 ML PEN SC SCH (21:00)
[2019-04-29] MEDS: CIPRO 0.2%/HYDROCORTISONE 1% OTIC SUSP 10 ML BTL OT SCH ×3 (00:11→20:53)
[2019-04-29] MEDS: NICOTINE 21 MG/24 HR TDSY TD SCH ×2 (00:12→16:49)
[2019-04-29] MEDS: PIPERACILLIN/TAZOBACTAM 3.375 GM in DEXTROSE 5% 100 ML IV SCH ×3 (01:20→16:32)
[2019-04-29] MEDS: INSULIN REGULAR 250 UNITS in SODIUM CHLORIDE 0.9% 247.5 ML IV SCH (02:43)
[2019-04-29] MEDS: PENDING 1/2NSS+20mEq KCL IVF SCH ×7 (02:45→02:51)
[2019-04-29] MEDS ORDERED: SODIUM CHLORIDE 0.9% 1000ML 1,000 ML IV SCH (02:45)
[2019-04-29] MEDS: D5W AND 1/2NSS + 20MEQ KCL 20 MEQ/1,000 ML BAG IV SCH (02:46)
[2019-04-29] MEDS ORDERED: INSULIN ASPART 100 UNITS/ML 3 ML PEN SC SCH ×2 (04:00→06:00)
[2019-04-29 07:06] LABS: Basophils # (auto) 0.01 K/uL (0-0.2); Basophils % (auto) 0.2 %; Eosinophils % (auto) 1.8 %; Immature Granulocytes # (auto) 0.01 K/uL (0.00-0.02); Immature Granulocytes % (auto) 0.2 %; Lymphocytes # (auto) 1.28 K/uL (1.2-3.4); Lymphocytes % (auto) 23.3 %; Mean Corpuscular Hemoglobin 32.5 pg (25-34); Mean Corpuscular Volume 86.6 fL (80-100); Mean Platelet Volume 8.9 fL (7.4-10.4); Monocytes # (auto) 0.69 K/uL (0.11-0.59); Monocytes % (auto) 12.6 %; Neutrophils % (auto) 61.9 %; Platelet Count 136 K/uL (130-400); RDW Coefficient of Variation 13.1 % (11.5-14.5); RDW Standard Deviation 41.8 fL (36.4-46.3); Red Blood Count 4.62 M/uL (4.7-6.1); White Blood Count 5.49 K/uL (4.8-10.8)
[2019-04-29 07:10] LABS: Mean Corpuscular Hgb Conc 37.5 g/dL (32-36)
[2019-04-29] MEDS: FAMOTIDINE 20 MG in SYRINGE 3 ML IV SCH ×2 (07:46→21:07)
[2019-04-29 07:53] LABS: BUN Creatinine Ratio 5.3 (10-20); Calcium 8.1 mg/dl (8.5-10.1); Creatinine Clr Calc Pharmacy 99.3 ml/min; Est GFR (African American) 104.7; Est GFR (Non-African American) 90.3; Potassium 3.1 mmol/L (3.5-5.1)
[2019-04-29] MEDS ORDERED: POTASSIUM PHOS 3 MMOL/1 ML INFUSION IV STA (08:05)
[2019-04-29] MEDS ORDERED: NSS + 20MEQ KCL 20 MEQ/1,000 ML BAG IV SCH (08:15)
[2019-04-29] MEDS ORDERED: POTASSIUM PHOSPHATE 6 MMOL in 0.9 % SODIUM CHLORIDE 100 ML IV ONE (08:15)
[2019-04-29] MEDS: POTASSIUM CHLORIDE / WTR 10 MEQ/100 ML PLCT IV SCH ×3 (08:28→12:07)
--- NOTE | 2019-04-29 10:02 | Surgery Progress Note ---
Date of Service April 29, 2019 Assessment & Plan (1) Pneumomediastinum: -from history this may be related to Doris-Piedra tear due to vomiting/retching prior to admission -imaging has not shown an y pneumothorax, pleural effusions, or contrast extravasation -pt. has improved clinically -no leukocytosis noted -will continue IV antibiotics (zosyn) -continue NPO status -will plan on barium swallow tomorrow -if swallow study looks good may consider repeat CT scan Subjective Pt. denies CP or SOB. No abdominal pain. No fevers, shakes, chills. Physical Exam Constitutional: well developed and well nourished; no acute distress Neck: trachea midline no crepitus noted in soft tissue Respiratory: normal respiratory effort, lungs clear to auscultation no crepitus noted in soft tissue of chest wall Cardiovascular: Rate/Rhythm: regular rate and regular rhythm Gastrointestinal (Abdomen): normal bowel sounds, soft, nontender, no hepato splenomegaly Results & Data Vital Signs (Past 12 Hours) Vital Signs Temp Pulse Resp BP Pulse Ox 04/29/19 07:48 36.7 C 70 18 119/76 99 04/29/19 02:50 36.4 C L 80 16 108/67 97 04/28/19 23:43 36.6 C 67 20 122/77 99
[2019-04-29] MEDS: INSULIN ASPART 100 UNITS/ML 3 ML PEN SC SCH ×2 (12:09→18:14)
[2019-04-29] MEDS ORDERED: INSULIN GLARGINE SOLOSTAR 100 UNITS/ML 3 ML PEN SC ONE (12:15)
--- NOTE | 2019-04-29 13:38 | Hospitalist Progress Note ---
Date of Service April 29, 2019 Assessment & Plan (1) DKA (diabetic ketoacidoses): This is a 34-year-old male with history of type 1 diabetes, (diagnosed at age 30) Presented with intractable nausea vomiting Presented with DKA with hyperglycemia, metabolic acidosis with high anion gap Patient started with IV insulin drip per moderate stress protocol Appreciate input from pharmacy for glycemic management Goal range blood sugar [id number] 04/29/2019 DKA resolved, resolution of metabolic acidosis, normal anion gap, normal bicarb level Patient is transition to basal Lantus insulin sliding scale BSG has been stable, No nausea vomiting, no abdominal discomfort Patient is kept n.p.o. due to esophageal Doris-Piedra tear- Evaluated by cardiothoracic surgery Plan for barium swallow tomorrow, and possible repeat CT chest for evaluation of resolution of pneumomediastinum (2) Upper abdominal pain: Has resolved, No nausea vomiting, no abdominal pain Kept n.p.o. concern of Doris Piedra tear of esophagus (3) Vomiting: Symptom has resolved (4) Esophageal perforation: Secondary to intractable nausea and vomiting precipitated by DKA CT chest: Shows moderate pneumomediastinum to etiology of which is not entirely clear on the exam No oral contrast extravasation Distal esophageal wall thickness noted: An occult tear may reflect the source of pneumomediastinum Cardiothoracic surgery team consulted Appreciate input Recommends conservative management only Strict n.p.o. Empiric IV antibiotic with Zosyn Ordered for barium swallow testing tomorrow If no indication of barium contrast noted Repeat CT chest could be done to assess resolution of pneumomediastinum Continue to monitor closely (5) Type 1 diabetes mellitus: Type 1 diabetes diagnosed age 30 Does not have very good control Mentions of a prior episodes of DKA Follows with [place] glycemic pharmacy at [facility] At baseline poorly controlled diabetes A1c 11.4 Home antidiabetic regimen: Lantus 25 units a.m./30 units p.m. 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 intake is established Antibiotic can be changed to p.o. Augmentin, to complete total 7 days of treatment Subjective Had an uneventful night, No fever or chills, No complaint of left ear Ache Denies of any abdominal pain, no nausea vomiting Has been off IV insulin, DKA resolved On subcu insulin and basal Lantus Plan for barium swallow study tomorrow Physical Exam Constitutional: WD/WN, vitals as above no acute distress Eyes: + anicteric sclerae ENMT: Ears: + TM abnormality (Otoscopic exam: Left ear canal: Redness noted, with dullness on tympanic membrane,/right ear: Normal finding); no hearing impairment Neck: trachea midline, no thyromegaly Respiratory: normal respiratory effort, lungs clear to auscultation Cardiovascular: RRR, no murmur, no edema Gastrointestinal (Abdomen): normal bowel sounds, soft, nontender, no hepatosplenomegaly Percussion/Palpation: abdomen soft; abdomen nontender Musculoskeletal: no cyanosis or clubbing, extremities motor strength 5/5 Skin: no rashes, warm and dry Neurologic: PERRL, EOMI, accommodation nl, no face palsy, no dysarthria Psychiatric: A+Ox3, euthymic affect Results & Data Vital Signs (Past 12 Hours) Vital Signs Temp Pulse Resp BP Pulse Ox 04/29/19 11:24 36.9 C 77 20 124/83 100 04/29/19 07:48 36.7 C 70 18 119/76 99 04/29/19 02:50 36.4 C L 80 16 108/67 97 (1) DKA (diabetic ketoacidoses) Diabetes mellitus complication detail: without coma Diabetes mellitus type: type 1 Qualified Code(s): E10.10 - Type 1 diabetes mellitus with ketoacidosis without coma (2) Vomiting Nausea presence: with nausea Vomiting Intractability: non-intractable Vomiting type: unspecified Qualified Code(s): R11.2 - Nausea with vomiting, unspecified (3) Type 1 diabetes mellitus Diabetes mellitus complication status: with hyperglycemia Qualified Code(s): E10.65 - Type 1 diabetes mellitus with hyperglycemia
--- NOTE | 2019-04-29 14:48 | Pharmacy Report ---
Glycemic Control Progress Note - Date of Service April 29, 2019 - Scope Glycemic Pharmacist consulted for glycemic control to write orders per [facility] inpatient glycemic control protocol. - Objective Accuchecks BSG(last 24 hours):: 04/28/19 04/28/19 04/28/19 15:01 15:32 16:32 Glucose 157 H POC Glucose 146 H 121 H 04/28/19 04/28/19 04/28/19 17:37 18:42 19:13 Glucose 130 H POC Glucose 131 H 130 H 04/28/19 04/28/19 04/28/19 19:45 20:45 21:37 Glucose POC Glucose 125 H 136 H 143 H 04/28/19 04/29/19 04/29/19 23:34 00:44 04:03 Glucose POC Glucose 112 H 117 H 130 H 04/29/19 04/29/19 04/29/19 06:55 06:57 11:50 Glucose 114 H POC Glucose 98 161 H HbA1c:: Hemoglobin A1c 11.4 % (4.5-5.6) H 04/28/19 03:00 - Recent Pertinent Medications The patient is currently receiving: * Basal insulin: Lantus 25 units X 1 THEN 10-35 UNITS HS * Correctional Insulin: Novolog Correction per scale ACHS Goal Range: Low 120 mg/dL - High 160 mg/dL Correction Factor: 35 mg/dL/unit * Prandial insulin: Per carb ratio of 1 unit per 11 grams CHO consumed * Oral Agents: - Outpatient Anti-Diabetic Meds LANTUS 25 UNITS IN THE MORNING AND 30 UNITS IN THE PM - Assessment & Plan ASSESSMENT: * See progress note from 04/28/19 for more background info, in short: * Pt receiving SQ basal bolus insulin regimen for hyperglycemia secondary to baseline DM (outpatient regimen on hold). patient currently NPO for barium swallow tomorrow. Patient originally admitted for DKA - transitioned off insulin infusion around 1600 yesterday. * Patient is currently receiving an average of 50 units of insulin per day + insulin infusion * 50 units of basal insulin * -- units of prandial/correctional insulin * BSGs ranging 112 - 272 mg/dl over the past 24hrs * Changes needed to insulin regimen: * AM Fasting BSG = 98 mg/dl. This is below goal range for patient based on inpatient targets and co-morbidities. This was slightly concerning since patient is NPO until tomorrow HOWEVER patient trended upwards to 161 mg/dL at lunch. Gave 25 units like yesterday. Scale for this evening. 50 units daily may be too much so maximum today will be 45 units. * Post-prandial BSGs are controlled. Continue weight-based stress of 2 dosing * Total daily dose = 45 units ... when patient begins to eat this will increase. PLAN FOR INPATIENT GLYCEMIC CONTROL: * Changing Lantus to 25 units SQ x 1 then 10-20 units HS * Lantus 10 units if blood sugar less than 120 mg/dL * Lantus 15 units if blood sugar 120-180 mg/dL * Lantus 20 units if blood sugar greater than 180 mg/dL * Continuing correction factor of 35 mg/dl/unit * Continuing carb ratio to 1 unit per 11 grams CHO consumed * Continuing goal range of Low 120 mg/dL - High 160 mg/dL RECOMMENDATIONS FOR DISCHARGE: * Patient has poor outpatient control. Recommend following up with endocrinology. * Please note that the plan above was derived based on current level of insulin resistance and hospital stress. These recommendations are appropriate for inpatient admission only. Plan of care upon discharge will need to be reassessed to avoid potential outpatient hypo/hyperglycemia. Thank you.
[2019-04-29] MEDS: D5NSS + 20MEQ KCL 20 MEQ/1,000 ML BAG IV SCH (15:15)
[2019-04-29 19:18] LABS: Amphetamines+Metham, Urine Neg (Neg); Barbiturates, Urine Neg (Neg); Benzodiazepine, Urine Neg (Neg); Cocaine, Urine Neg (Neg); MDMA (Ecstacy), Urine Neg (Neg); Methadone, Urine Neg (Neg); Opiate, Urine Neg (Neg); Phencyclidine, Urine Neg (Neg)
[2019-04-29] MEDS: INSULIN GLARGINE SOLOSTAR 100 UNITS/ML 3 ML PEN SC SCH (20:52)
[2019-04-30] MEDS: INSULIN ASPART 100 UNITS/ML 3 ML PEN SC SCH ×5 (00:02→20:39)
[2019-04-30] MEDS: D5NSS + 20MEQ KCL 20 MEQ/1,000 ML BAG IV SCH ×2 (00:03→06:37)
[2019-04-30] MEDS: PIPERACILLIN/TAZOBACTAM 3.375 GM in DEXTROSE 5% 100 ML IV SCH ×2 (00:05→09:06)
[2019-04-30 06:20] LABS: BUN Creatinine Ratio 6.4 (10-20); Calcium 7.7 mg/dl (8.5-10.1); Creatinine Clr Calc Pharmacy 127.7 ml/min; Est GFR (African American) 134.3; Est GFR (Non-African American) 115.9; Magnesium 1.5 mg/dl (1.8-2.4); Potassium 3.4 mmol/L (3.5-5.1)
[2019-04-30 06:22] LABS: Phosphorus 3.3 mg/dl (2.5-4.9)
[2019-04-30] MEDS ORDERED: INSULIN GLARGINE SOLOSTAR 100 UNITS/ML 3 ML PEN SC SCH (09:00)
[2019-04-30] MEDS: CIPRO 0.2%/HYDROCORTISONE 1% OTIC SUSP 10 ML BTL OT SCH ×2 (09:07→20:37)
[2019-04-30] MEDS: FAMOTIDINE 20 MG in SYRINGE 3 ML IV SCH (09:07)
--- NOTE | 2019-04-30 09:38 | Fluoroscopy Report ---
FL barium swallow CLINICAL HISTORY: pneumomediastinum; ?esoph perforation COMPARISON STUDY: Chest CT 04/27/2019. FLUOROSCOPY TIME: 0.6 minutes. 12 fluoroscopic spot images submitted. FINDINGS: Initial study was performed with water-soluble contrast. The esophagus is normal in course and caliber. No extraluminal contrast to suggest a leak. This is followed by a barium contrast study which also demonstrated the esophagus to be normal in course and caliber. No extraluminal contrast to suggest a leak. No hiatus hernia. No gastroesophageal reflux demonstrated. IMPRESSION: Normal esophagus. No extraluminal contrast to suggest a leak/perforation. Electronically signed by: Wesley Valdez M.D. 04/30/2019 9:37 AM
--- NOTE | 2019-04-30 10:46 | Pharmacy Report ---
Pharmacy Glycemic Short Note 2 - Date of Service April 30, 2019 - Glycemic Short BSG Results (Last 24 hours): 04/29/19 04/29/19 04/29/19 11:50 17:57 20:40 Glucose POC Glucose 161 H 170 H 184 H 04/29/19 04/30/19 04/30/19 23:49 05:30 05:36 Glucose 194 H POC Glucose 165 H 189 H 04/30/19 08:59 Glucose POC Glucose 233 H ASSESSMENT: * FBS elevated this AM, 233mg/dL. Will revert back to a more aggressive HS lantus scale. His diet is now being advanced. NPO --> full liquid. Zosyn continues. PLAN FOR INPATIENT GLYCEMIC CONTROL: * Basal insulin - increase HS lantus scale * Lantus continue 25u QAM, see below for adjusted HS lantus scale * BSGs <120 give 10u, BSGs 120-180 give 15u, BSGs>180 give 25units (not 20u) * Bolus insulin * NovoLog per scale ACHS - full liquid * Goal Range: Low 120 mg/dL - High 160 mg/dL * Correction Factor: 35 mg/dL/unit * Nutritional / Prandial insulin per carb ratio of 1 unit per 11 grams CHO consumed
[2019-04-30] MEDS ORDERED: POTASSIUM CHLORIDE 20 MEQ TABCR PO STA (11:00)
[2019-04-30] MEDS: MAGNESIUM SULFATE / D5W 1 GM/100 ML BAG IV SCH (12:51)
--- NOTE | 2019-04-30 17:28 | Progress Note ---
DATE: 04/30/2019 Mr. Gonzalez was seen today on 04/30/2019. This 34-year-old male with diabetes, is interesting. The most the patient weighed was 285 pounds in high school. He now weighs about 170. The patient presented after retching and was found to have some air in his lower mediastinum. I closely reviewed this and the CT scan with contrast in the esophagus looked quite good. I saw no evidence of a leak. In addition, this patient has not spiked a fever. He has not had an elevated white count. We had a long talk about this and he underwent a barium swallow today. This showed no evidence of a leak. Given the fact that he has no clinical signs and has no other radiographic evidence other than some lower mediastinal air which actually is around the lower trachea and actually comes up above the right mainstem bronchus is probably due to a pneumomediastinum, which is a benign condition. At this point, we allowed him to have clear liquids. I would follow him for another day to make sure that he does not spike a fever or have any other problems with this. I am also a bit concerned about his heart rate. Back on 04/08/2019, he was up to the 160s and it is 118, this afternoon. I do not think that this patient has a perforation, but we will continue to follow him. RENEE
[2019-04-30] MEDS: AMOXICILLIN/CLAVULANATE 875 MG TAB PO SCH (17:37)
--- NOTE | 2019-04-30 18:00 | Hospitalist Progress Note ---
Date of Service April 30, 2019 Assessment & Plan (1) DKA (diabetic ketoacidoses): This is a 34-year-old male with history of type 1 diabetes, (diagnosed at age 30) Presented with intractable nausea vomiting Presented with DKA with hyperglycemia, metabolic acidosis with high anion gap Patient started with IV insulin drip per moderate stress protocol Appreciate input from pharmacy for glycemic management Goal range blood sugar [id number] 04/29/2019 DKA resolved, resolution of metabolic acidosis, normal anion gap, normal bicarb level Patient is transition to basal Lantus insulin sliding scale BSG has been stable, No nausea vomiting, no abdominal discomfort Patient was kept n.p.o. due to esophageal Doris-Piedra tear- Evaluated by cardiothoracic surgery Status post barium swallow today Shows no sign of extravasation of Gastrografin or barium No evidence of esophageal perforation or leak Started on clear liquid diet, has been tolerating well Diet will be advanced slowly as tolerated (2) Upper abdominal pain: Has resolved, No nausea vomiting, no abdominal pain Diet advanced to clears today as barium swallow shows no evidence of esophageal tear (3) Vomiting: Symptom has resolved (4) Esophageal perforation: Secondary to intractable nausea and vomiting precipitated by DKA CT chest: Shows moderate pneumomediastinum to etiology of which is not entirely clear on the exam No oral contrast extravasation Distal esophageal wall thickness noted: An occult tear may reflect the source of pneumomediastinum Cardiothoracic surgery team consulted barium swallow -shows no evidence of contrast extravasation Clear liquid diet, advance as tolerated (5) Type 1 diabetes mellitus: Type 1 diabetes diagnosed age 30 Does not have very good control Mentions of a prior episodes of DKA Follows with [facility] At baseline poorly controlled diabetes A1c 11.4 Home antidiabetic regimen: Lantus 25 units a.m./30 units p.m. NovoLog sliding scale Presents with DKA, on IV insulin drip Resolved, He is on Lantus and insulin sliding scale resume special educator consult appreciated Patient reports of being noncompliance with insulin regimen secondary to insurance issues (lost medical insurance after losing job) On process of getting Medicaid Patient mentions that he was using [employer] brand rely on 70/30 insulin sporadically-to control his blood sugar Has not been able to follow-up with diabetic clinic secondary to lack of insurance But willing to get back on track as soon as his medical assistance is approved Counseling provided per patient to close follow-up with outpatient providers for better glycemic management (6) Left otitis media with effusion: On presentation complaint of left ear infection: Had ongoing left ear ache with radiation down to left jaw Arthroscopic exam of left ear: Showed marked erythema of left ear canal, with dullness and fluid level at the tympanic members Right ear: Normal finding Ordered for Ciprodex eardrop-patient reports improvement of ear ache Patient is already on broad-spectrum antibiotic Zosyn which will be continued Antibiotic changed to p.o. Augmentin to complete total 7 days of course CODE STATUS: Full code Disposition: Expected to be discharged home in next 1 to 2 days if remains medically stable Subjective Feels fine, No fever chills no cough no abdominal pain no nausea vomiting Barium swallow today shows no evidence of esophageal leak appreciate input from cardiothoracic surgeon, Patient been started on clear liquid diet has been tolerating well Blood sugar has been stable on subcu insulin regimen Physical Exam Constitutional: WD/WN, vitals as above no acute distress Eyes: + anicteric sclerae ENMT: Ears: + TM abnormality (Otoscopic exam: Left ear canal: Redness noted, with dullness on tympanic membrane,/right ear: Normal finding); no hearing impairment Neck: trachea midline, no thyromegaly Respiratory: normal respiratory effort, lungs clear to auscultation Cardiovascular: RRR, no murmur, no edema Gastrointestinal (Abdomen): normal bowel sounds, soft, nontender, no hepatosplenomegaly Percussion/Palpation: abdomen soft; abdomen nontender Musculoskeletal: no cyanosis or clubbing, extremities motor strength 5/5 Skin: no rashes, warm and dry Neurologic: PERRL, EOMI, accommodation nl, no face palsy, no dysarthria Psychiatric: A+Ox3, euthymic affect Results & Data Vital Signs (Past 12 Hours) Vital Signs Temp Pulse Resp BP BP Pulse Ox 04/30/19 15:06 36.6 C 118 H 20 130/86 96 04/30/19 12:08 36.6 C 65 16 132/88 100 04/30/19 07:00 36.4 C L 68 16 138/87 100 (1) DKA (diabetic ketoacidoses) Diabetes mellitus complication detail: without coma Diabetes mellitus type: type 1 Qualified Code(s): E10.10 - Type 1 diabetes mellitus with ketoacidosis without coma (2) Vomiting Nausea presence: with nausea Vomiting Intractability: non-intractable Vom iting type: unspecified Qualified Code(s): R11.2 - Nausea with vomiting, unspecified (3) Type 1 diabetes mellitus Diabetes mellitus complication status: with hyperglycemia Qualified Code(s): E10.65 - Type 1 diabetes mellitus with hyperglycemia
[2019-04-30] MEDS: INSULIN GLARGINE SOLOSTAR 100 UNITS/ML 3 ML PEN SC SCH (20:39)
[2019-04-30] MEDS: NICOTINE 21 MG/24 HR TDSY TD SCH (21:15)
[2019-05-01 08:00] LABS: Est GFR (African American) 144.7
[2019-05-01 08:01] LABS: BUN Creatinine Ratio 7.5 (10-20); Calcium 8.2 mg/dl (8.5-10.1); Creatinine Clr Calc Pharmacy 161.4 ml/min; Est GFR (Non-African American) 124.9
[2019-05-01 08:03] LABS: Phosphorus 4.8 mg/dl (2.5-4.9)
[2019-05-01] MEDS: CIPRO 0.2%/HYDROCORTISONE 1% OTIC SUSP 10 ML BTL OT SCH (08:17)
[2019-05-01] MEDS: AMOXICILLIN/CLAVULANATE 875 MG TAB PO SCH (08:18)
[2019-05-01] MEDS: INSULIN ASPART 100 UNITS/ML 3 ML PEN SC SCH ×2 (08:19→12:36)
[2019-05-01] MEDS ORDERED: INSULIN GLARGINE SOLOSTAR 100 UNITS/ML 3 ML PEN SC STA (08:59)
[2019-05-01] MEDS ORDERED: POTASSIUM CHLORIDE 20 MEQ TABCR PO STA (12:49)
--- NOTE | 2019-05-01 13:10 | Pharmacy Report ---
Pharmacy Glycemic Short Note 2 - Date of Service May 01, 2019 - Glycemic Short BSG Results (Last 24 hours): 04/30/19 04/30/19 05/01/19 17:13 20:26 06:57 Glucose 69 L POC Glucose 95 74 05/01/19 05/01/19 08:18 11:40 Glucose POC Glucose 82 208 H Discharge Recs ReliOn 70/30 insulin: 30 units with breakfast, 15 units with dinner.
--- NOTE | 2019-05-01 17:47 | Discharge Summary ---
Date of Service May 01, 2019 Admission HPI Per Admitting Provider DICTATED BY: Moises Hernandez MD DATE OF ADMISSION: 04/27/2019 CHIEF COMPLAINT: Nausea, vomiting and abdominal pain. HISTORY OF PRESENT ILLNESS: This patient is a 34-year-old male with past medical history significant for type 1 diabetes, generalized anxiety disorder and depression who presents with nausea and vomiting since today morning and abdominal pain, says was vomiting every 15minutes, no blood in the vomitus. Because of abdominal pain and his sugars were running high, s he came in to the hospital where he was found to be in diabetic ketoacidosis and also pneumomediastinum , but currently, the patient is hemodynamically stable. He has some pain in his throat and his esophagus. Denies any chest pain. Denies shortness of breath. He has some occasional dry cough. No fevers. Feeling somewhat cold. He has some headache. No dizziness. No blurred visions. He has some sore throat from nausea and vomiting. Currently, no abdominal pain. He has some episode of diarrhea today. No burning micturition. No blood in the urine. No rash. Currently resting comfortably and hemodynamically stable. Principal Diagnosis DKAtype 1 diabetes/severe nausea vomiting,/possible Doris-Piedra tear Discharge Exam Constitutional WD/WN, vitals as above no acute distress Eyes + anicteric sclerae ENMT Ears: + TM abnormality (Otoscopic exam: Left ear canal: Redness noted, with dullness on tympanic membrane,/right ear: Normal finding); no hearing impairment Neck trachea midline, no thyromegaly Respiratory normal respiratory effort, lungs clear to auscultation Cardiovascular RRR, no murmur, no edema Gastrointestinal (Abdomen) normal bowel sounds, soft, nontender, no hepatosplenomegaly Percussion/Palpation: abdomen soft; abdomen nontender Musculoskeletal no cyanosis or clubbing, extremities motor strength 5/5 Skin no rashes, warm and dry Neurologic PERRL, EOMI, accommodation nl, no face palsy, no dysarthria Psychiatric A+Ox3, euthymic affect Discharge Data Allergies Allergy/AdvReac Type Severity Reaction Status Date / Time methyl salicylate Allergy Unknown HIVES, Unverified 04/27/19 14:35 "FEELS LIKE FIRE ON MY SKIN" codeine AdvReac Intermediate BECOMES Verified 04/27/19 14:35 VERY AGGRESSIVE Consultations 04/27/19 20:02 ED Decision to Admit Stat 04/28/19 08:00 Consult Thoracic Surgery Routine Ordered Studies 04/27/19 14:07 CT abd pelvis IV con only Stat 04/27/19 16:54 CT chest wo con Stat 04/30/19 09:30 [place] barium swallow Urgent Hospital Course (1) DKA (diabetic ketoacidoses): This is a 34-year-old male with history of type 1 diabetes, (diagnosed at age 30) Presented with intractable nausea vomiting Presented with DKA with hyperglycemia, metabolic acidosis with high anion gap Patient started with IV insulin drip per moderate stress protocol Appreciate input from pharmacy for glycemic management Goal range blood sugar [id number] 04/29/2019 DKA resolved, resolution of metabolic acidosis, normal anion gap, normal bicarb level Patient is transition to basal Lantus insulin sliding scale BSG has been stable, No nausea vomiting, no abdominal discomfort Patient was kept n.p.o. due to esophageal Doris-Piedra tear- Evaluated by cardiothoracic surgery Status post barium swallow Shows no sign of extravasation of Gastrografin or barium No evidence of esophageal perforation or leak Diet advanced to solid, tolerating well, 05/01/2019 BSG has been stable, Patient medically stable to be discharged home Patient admits that he has not been using basal Lantus and short acting insulin as per diabetic clinic, as he could not afford insulin supply for lack of insurance Has not been following with the diabetic clinic for the same reason Has been using [employer] brand rely on 70/30 insulin, self treating himself randomly, Patient mentions he is in the process of getting medical assistance, Will resume Lantus and NovoLog insulin once Medicaid is established Appreciate input from tobacco prevention health educator Patient is given instruction to utilize insulin 70/30, 30 units before breakfast, 15 units before dinner Asked to check blood sugar at least 3 times daily (2) Upper abdominal pain: Has resolved, secondary to DKA No nausea vomiting, no abdominal pain Symptoms resolved after BSG good control barium swallow shows no evidence of esophageal tear Diet advanced to solid tolerating well (3) Vomiting: Due to DKA developed Doris-Piedra tear secondary to intractable vomiting symptom has resolved Barium swallow shows no evidence of esophageal tear or perforation (4) Esophageal perforation: Secondary to intractable nausea and vomiting precipitated by DKA CT chest: Shows moderate pneumomediastinum to etiology of which is not entirely clear on the exam No oral contrast extravasation Distal esophageal wall thickness noted: An occult tear may reflect the source of pneumomediastinum Cardiothoracic surgery team consulted barium swallow -shows no evidence of contrast extravasation Diet advanced, tolerating well, no further treatment or testing indicated (5) Type 1 diabetes mellitus: Type 1 diabetes diagnosed age 30 Does not have very good control Mentions of a prior episodes of DKA Follows with [facility] glycemic pharmacy at [facility] Has not been following with diabetic clinic as patient lost his insurance At baseline poorly controlled diabetes A1c 11.4 Home antidiabetic regimen: Lantus 25 units a.m./30 units p.m. has not been taking as could not afford insulin without insurance NovoLog sliding scale Has been utilizing [employer] rely on 70/30, self dosing randomly Presents with DKA, on IV insulin drip DKA resolved, certified adapted physical educator consult appreciated Patient reports of being noncompliance with insulin regimen secondary to insurance issues (lost medical insurance after losing job) On process of getting Medicaid Patient mentions that he was using [employer] brand rely on 70/30 insulin sporadically-to control his blood sugar Has not been able to follow-up with diabetic clinic secondary to lack of insurance But willing to get back on track as soon as his medical assistance is approved Counseling provided per patient to close follow-up with outpatient providers for better glycemic management Instructions given to use insulin 70/30 30 units before breakfast, 15 units before dinner (6) Left otitis media with effusion: On presentation complaint of left ear infection: Had ongoing left ear ache with radiation down to left jaw Arthroscopic exam of left ear: Showed marked erythema of left ear canal, with dullness and fluid level at the tympanic members Right ear: Normal finding Ordered for Ciprodex eardrop-patient reports improvement of ear ache Patient is already on broad-spectrum antibiotic Zosyn which will be continued Antibiotic changed to p.o. Augmentin to complete total 7 days of course CODE STATUS: Full code Disposition: Stable to be discharged home today Total Time Total Time Spent Total Time Spent (In Minutes): Approximately 40 minutes Total Time Includes: Examination of the Patient, Discharge Planning and Medication Reconciliation Discharge Plan Discharge Items Patient Disposition: Home - Self-Care Reason For Visit: N/V Discharge Diagnosis: DKAtype 1 diabetes/severe nausea vomiting,/possible Doris-Piedra tear Discharge Goals: Decrease discomfort Activity: Resume your previous activity Non-emergency contact: Primary Care Provider Call non-emergency contact if: you have any medication questions Follow-up/Referrals: Kylah Orellana DO [Primary Care Provider] - 05/03/19 12:45 pm Diet: Carb Count or DM1 Addtl Provider Instructions: Hospital follow-up with Dr. Nelson at [facility] on at 12:45 PM INSULIN RELION 70/30 TAKE 30 UNITS BEFORE BREAKFAST/15 UNITS BEFORE DINNER YOU CAN CHANGE BACK TO BASAL INSULIN AND ASPART ONCE INSURANCE IS APPROVED Please check your blood sugar at least 4 times daily: Before breakfast (fasting)/before lunch/before dinner/at bedtime Please keep a log of the blood sugars, and bring with your next physician Please follow-up with diabetic clinic at [facility] IS VERY IMPORTANT FOR YOU TO QUIT SMOKING: HIGH RISK FOR HEART DISEASE, HEART ATTACK/KIDNEY DAMAGE-KIDNEY FAILURE/STROKE Prescriptions: New Cipro HC 0.2-1 % Drops,Suspension 4 drp otic (ear) BID 5 Days Qty: 1 RF: 0 amoxicillin-pot clavulanate 875-125 mg Tablet 1 tab PO BIDM 3 Days Qty: 6 RF: 0 Continued insulin aspart U-100 100 unit/mL insulin pen 1 - 10 unit subcut TIDM RF: 0 insulin glargine 100 unit/mL (3 mL) insulin pen 25 unit subcut QAM RF: 0 Basaglar KwikPen U-100 Insulin 100 unit/mL (3 mL) insulin pen 30 unit subcut QPM RF: 0 Stand-Alone Forms: [employer]/Other Patient Handouts: Diabetes Heart Disease, Diabetes Chalk Molding Machine Operator Complications, Diabetes Type 1 Coping, Diabetes Healthy Meals, Diabetes Carbs, Diabetes Exercise Benefits, Diabetes Exercise Get Started, Diabetes Activity Tips Discharge Orders: Discharge Order (Routine); Ordered 05/01/19 Ordered By: Mary Abdi Admission Data Admit Date/Time: 04/27/19 22:04 Attending Provider: Mary Abdi Admit Provider: Moises Hernandez Primary Care Provider: Kylah Orellana Other Providers: Moises Hernandez ; Erick Hua Service: Medical Other Interventions: Discharge Summary Assessment (RN) Last Done: 05/01/19 13:51 DC Date/Time DO NOT enter until pt leaves facility: 05/01/19 17:01
--- NOTE | 2019-05-01 19:34 | Progress Note ---
DATE: 05/01/2019 Mr. Gonzalez looks great. He is tolerating liquids very well. Again, I do not believe this patient has an esophageal perforation. At this point, I would allow him to eat liberally. If there are any questions, I would be glad to see him in the office; however, I do not think that he is going to require followup.
== END 2019-05-01 17:01 | disposition home or self-care (01) | DRG 637 ==
LOC: ED 13:12 → 2S 22:04 → 2N 04-29 12:14 → 4W 04-30 21:39

== ENCOUNTER 2019-05-21 18:14 | Inpatient (IN) ==
[2019-05-21] MEDS ORDERED: FAMOTIDINE 20MG IV PUSH 20 MG/5 ML SYR IV STA (18:24)
[2019-05-21] MEDS ORDERED: PROCHLORPERAZINE 2 ML IV ONE (18:24)
[2019-05-21] MEDS ORDERED: ACETAMINOPHEN 1,000 MG/100 ML VIAL IV STA (18:24)
[2019-05-21] MEDS ORDERED: SODIUM CHLORIDE 0.9% 1000ML 2,000 ML IV ONE (18:24)
--- NOTE | 2019-05-21 18:47 | XRay Report ---
XR chest 1V portable CLINICAL HISTORY: Atypical chest pain COMPARISON STUDY: 04/28/2019 FINDINGS: The cardiac and mediastinal contours are normal. There is no evidence of focal pulmonary co nsolidation. There is no evidence of failure. No pleural effusions are visualized.[No pneumothorax is visualized. IMPRESSION: No active disease in the chest. Electronically signed by: Ramon Keyes M.D. 05/21/2019 6:44 PM
[2019-05-21 18:58] LABS: Base Excess VBG -16.4 mEq/L; Oxygen Saturation VBG 76.8 %; pH VBG 7.16 (7.36-7.41)
[2019-05-21 19:04] LABS: iSTAT Creatinine 0.9 mg/dl (0.6-1.3); iSTAT Ionized Calcium 1.1 mmol/l (1.12-1.32); iSTAT Potassium 4.3 mEq/L (3.3-5.0)
[2019-05-21 19:17] LABS: Appearance Urine Clear (Clear); Bacteria Urine Automated Negative (Negative); Bilirubin Urine Negative (Negative); Blood Urine Negative (Negative); Cast Urine Automated 0 /lpf (0-5); Color Urine Yellow; Glucose Urine UA 3+ (Negative); Leukocyte Esterase Urine Negative (Negative); Nitrite Urine Negative (Negative); Protein Urine 1+ (Negative); RBC Urine Automated 0-4 /hpf (0-4); Specific Gravity Urine 1.033 (1.000-1.030); Urobilinogen Urine Negative (Negative)
[2019-05-21 19:17] LABS: Alanine Aminotransferase 33 U/L (12-78); Albumin Globulin Ratio 1.2 (0.9-2); Albumin Level 4.4 gm/dl (3.4-5.0); Alkaline Phosphatase 143 U/L (45-117); Aspartate Aminotransferase 22 U/L (15-37); BUN Creatinine Ratio 8.7 (10-20); Bilirubin Direct 0.2 mg/dl (0-0.2); Bilirubin,Total 0.9 mg/dl (0.2-1); Blood Urea Nitrogen 14 mg/dl (7-18); Calcium 8.6 mg/dl (8.5-10.1); Carbon Dioxide 10 mmol/L (21-32); Chloride 99 mmol/L (98-107); Est GFR (African American) 63.7; Est GFR (Non-African American) 54.9; Globulin 3.8 gm/dl (2.5-4.0); Glucose 370 mg/dl (70-99); Lipase 55 U/L (73-393); Magnesium 2.1 mg/dl (1.8-2.4); Phosphorus 3.7 mg/dl (2.5-4.9); Sodium 135 mmol/L (136-145); Total Protein 8.2 gm/dl (6.4-8.2); Troponin I < 0.015 ng/ml (0-0.045)
[2019-05-21] MEDS ORDERED: DKA GOAL RANGE 150-250 mg/dl ONE (19:23)
[2019-05-21 19:25] LABS: Ketones Urine 4+ (Negative)
[2019-05-21] MEDS ORDERED: POTASSIUM CHLORIDE / WTR 10 MEQ/100 ML PLCT IV STA (19:25)
[2019-05-21] MEDS ORDERED: SODIUM CHLORIDE 0.9% 1000ML 1,000 ML IV STA (19:25)
[2019-05-21] MEDS ORDERED: INSULIN REGULAR 250 UNITS in SODIUM CHLORIDE 0.9% 247.5 ML IV SCH (19:30)
[2019-05-21 20:17] LABS: Beta-Hydroxybutyrate 93.95 mg/dl (0.2-2.81)
[2019-05-21] MEDS ORDERED: LACTATED RINGER'S 1,000 ML IV ONE (20:30)
[2019-05-21 20:38] LABS: Hematocrit (blood only) 53.9 % (42-52); Hemoglobin 19.5 g/dL (14.0-18.0); Mean Corpuscular Hemoglobin 32.5 pg (25-34); Mean Corpuscular Hgb Conc 36.2 g/dL (32-36); Mean Corpuscular Volume 89.8 fL (80-100); Mean Platelet Volume 9.7 fL (7.4-10.4); Platelet Count 243 K/uL (130-400); RDW Coefficient of Variation 12.8 % (11.5-14.5); RDW Standard Deviation 41.7 fL (36.4-46.3); White Blood Count 16.23 K/uL (4.8-10.8)
--- NOTE | 2019-05-21 21:03 | History & Physical Report ---
Date of Service May 21, 2019 Assessment & Plan (1) DKA (diabetic ketoacidoses): Secondary to missed medication History DM1 Suboptimal control as of recent outpatient hemoglobin A1c of 11.08 April 2019 Increasing pneumomediastinum, esophagitis on CT Recent admission 3 weeks ago for issue ARF secondary to illness Depression, although suboptimal patient prefers to avoid medications Ongoing tobacco abuse Medical telemetry IV insulin, Pharmacy glycemic control consult Monitor creatinine response to IV fluids N.p.o. RE pneumomediastinum IV PPI for esophagitis CT surgery consult RE increasing pneumomediastinum Nicotine patch DVT prophylaxis. SCDs given propensity for U GIB from esophagitis causing pneumomediastinum Full code Total critical time was 45 minutes. History of Present Illness Chief Complaint: Chest/abdominal pain, shortness of breath, sugars might be high Primary Care Provider: Kylah Orellana, History obtained from patient, family, and records. Medical history significant for DM 1,, anxiety/mood disorder, history pneumomediastinum as per records ongoing tobacco abuse. Recent confinement 3 weeks ago for DKA, possible Doris-Piedra tear from emesis. CAT scan showed moderate pneumomediastinum. Patient evaluated by CT surgery. No surgical intervention. Last night patient went to bed feeling down because of personal stressors, denies suicidality. Woke up in the morning feeling weak, was not able to take insulin, patient suspected blood sugar to be high. Patient later noted pleuritic left-sided chest pain/upper abdominal pain with shortness of breath, nausea, emesis symptoms. No hematemesis, no melena. No cough symptoms. Medical History as above Surgical History : Dental surgery Family History : Breast cancer, psychiatric illness Personal/Social history : Half pack daily, occasional EtOH intake, prior work at the [employer] Allergies Allergy/AdvReac Type Severity Reaction Status Date / Time methyl salicylate Allergy Unknown HIVES, Unverified 05/21/19 19:54 "FEELS LIKE FIRE ON MY SKIN" codeine AdvReac Intermediate BECOMES Verified 05/21/19 19:54 VERY AGGRESSIVE Home Medications Home Medications Medication Instructions Recorded Confirmed Type insulin aspart U-100 1 - 10 unit SUBCUT TIDM 08/09/18 05/21/19 History insulin glargine 25 unit SUBCUT QAM 08/09/18 05/21/19 History Basaglar KwikPen U-100 Insulin 30 unit SUBCUT QPM 01/28/19 05/21/19 History Past Med/Surg History Medical History DKA (diabetic ketoacidoses) (Acute) Epigastric pain (Acute) GERD (gastroesophageal reflux disease) (Acute) Diabetes (Chronic) Hypertension (Chronic) Major depressive disorder, recurrent episode Sebaceous cyst (Acute) Suicidal ideation (Acute) Tobacco abuse disorder Hx of psoriasis Surgical History No pertinent past surgical history Family History Other No significant family history Social History Preferred Language: Swiss Communication Ability: Effective Beliefs That Will Affect Care: None marital status: Single Current Living Situation: Spouse current occupational status: employed Feels Safe at Home: Yes Safety Concerns: Feels Safe At This Time Smoking Status: Current every day smoker Tobacco Type: cigarettes ; Cigarettes Per Day: 1ppd ; Do You Dip or Chew Tobacco: No ; Hx Alcohol Use: No Hx Substance Use: No Review of Systems Review of Systems: As per HPI, all 10 systems reviewed, all other ROS negative Physical Exam Physical Exam: GENERAL: Slightly uncomfortable, wane, no respiratory distress SKIN: Normal color, warm HEENT: [place] palpebral conjunctivae, no ptosis, dry buccal mucosa NECK : Supple, no tenderness CHEST : CTA, no tenderness HEART : Tachycardic, no obvious murmurs ABDOMEN: Flat, minimal epigastric tenderness EXTREMITIES : No LE swelling/tenderness, no other conspicuous deformities noted NEUROLOGIC : Coherent, no facial asymmetry, no other gross focality Results & Data Vital Signs (Past 12 Hours) Vital Signs Temp Pulse Resp BP Pulse Ox 05/21/19 20:30 99 H 22 99 05/21/19 20:00 115 H 20 98 05/21/19 19:30 98 H 17 100 05/21/19 19:00 121 H 20 05/21/19 18:30 112 H 20 100 05/21/19 18:25 115 H 22 100 05/21/19 18:24 122 H 26 H 98 05/21/19 18:23 37.0 C 108 H 26 H 133/109 H 98 05/21/19 18:22 114 H 19 133/109 H 100 Laboratory Results Laboratory Results WBC 16.23 K/uL (4.8-10.8) H 05/21/19 18:45 RBC 6.00 M/uL (4.7-6.1) 05/21/19 18:45 Hgb 19.5 g/dL (14.0-18.0) H 05/21/19 18:45 POC Hgb 18.0 g/dl (14.0-18.0) 05/21/19 18:44 Hct 53.9 % (42-52) H 05/21/19 18:45 POC Hct 53 % (42-52) H 05/21/19 18:44 MCV 89.8 fL (80-100) 05/21/19 18:45 MCH 32.5 pg (25-34) 05/21/19 18:45 MCHC 36.2 g/dL (32-36) H 05/21/19 18:45 RDW Std Deviation 41.7 fL (36.4-46.3) 05/21/19 18:45 RDW Coeff of Bhavik 12.8 % (11.5-14.5) 05/21/19 18:45 Plt Count 243 K/uL (130-400) 05/21/19 18:45 MPV 9.7 fL (7.4-10.4) 05/21/19 18:45 VBG pH 7.16 (7.36-7.41) L 05/21/19 18:35 VBG pCO2 31 mmHg (38-50) L 05/21/19 18:35 VBG pO2 45 mmHg 05/21/19 18:35 VBG HCO3 11 mmol/L 05/21/19 18:35 VBG O2 Saturation 76.8 % 05/21/19 18:35 VBG Base Excess -16.4 mEq/L 05/21/19 18:35 Barometric Pressure 732.8 mm/Hg 05/21/19 18:35 POC Sodium 134 mEq/L (135-144) L 05/21/19 18:44 Sodium 135 mmol/L (136-145) L 05/21/19 18:45 POC Potassium 4.3 mEq/L (3.3-5.0) 05/21/19 18:44 Potassium 4.0 mmol/L (3.5-5.1) 05/21/19 18:45 POC Chloride 102 mEq/L (101-112) 05/21/19 18:44 Chloride 99 mmol/L (98-107) 05/21/19 18:45 Carbon Dioxide 10 mmol/L (21-32) L 05/21/19 18:45 POC Total CO2 12 mEq/l (24-31) L 05/21/19 18:44 Anion Gap 26.0 (3-11) H 05/21/19 18:45 POC Anion Gap 25.0 mmol/L (16-25) 05/21/19 18:44 POC BUN 14 mg/dl (7-18) 05/21/19 18:44 BUN 14 mg/dl (7-18) 05/21/19 18:45 Creatinine 1.63 mg/dl (0.6-1.4) H 05/21/19 18:45 POC Creatinine 0.9 mg/dl (0.6-1.3) 05/21/19 18:44 Est Cr Clr Drug Dosing 46.0 ml/min 05/21/19 18:45 Est GFR ( Amer) 63.7 05/21/19 18:45 Est GFR (Non-Af Amer) 54.9 05/21/19 18:45 BUN/Creatinine Ratio 8.7 (10-20) L 05/21/19 18:45 Glucose 370 mg/dl (70-99) H* 05/21/19 18:45 POC Glucose 248 (70-99) H 05/21/19 20:03 POC Glucose (other) 394 mg/dl (70-99) H* 05/21/19 18:44 Osmolality 319 mOsm/kg (280-300) H 05/21/19 18:45 Calcium 8.6 mg/dl (8.5-10.1) 05/21/19 18:45 POC Ioniz Calcium Andrew 1.10 mmol/l (1.12-1.32) L 05/21/19 18:44 Phosphorus 3.7 mg/dl (2.5-4.9) 05/21/19 18:45 Magnesium 2.1 mg/dl (1.8-2.4) 05/21/19 18:45 Total Bilirubin 0.9 mg/dl (0.2-1) 05/21/19 18:45 Direct Bilirubin 0.2 mg/dl (0-0.2) 05/21/19 18:45 AST 22 U/L (15-37) 05/21/19 18:45 ALT 33 U/L (12-78) 05/21/19 18:45 Alkaline Phosphatase 143 U/L (45-117) H 05/21/19 18:45 Troponin I < 0.015 ng/ml (0-0.045) 05/21/19 18:45 Total Protein 8.2 gm/dl (6.4-8.2) 05/21/19 18:45 Albumin 4.4 gm/dl (3.4-5.0) 05/21/19 18:45 Globulin 3.8 gm/dl (2.5-4.0) 05/21/19 18:45 Albumin/Globulin Ratio 1.2 (0.9-2) 05/21/19 18:45 Lipase 55 U/L (73-393) L 05/21/19 18:45 Beta-Hydroxybutyric Acd 93.95 mg/dl (0.2-2.81) H 05/21/19 18:45 TSH 0.415 uIu/ml (0.300-4.500) 05/21/19 18:45 Urine Color Yellow 05/21/19 19:00 Urine Appearance Clear (Clear) 05/21/19 19:00 Urine pH 5.0 (4.5-7.5) 05/21/19 19:00 Ur Specific [place] 1.033 (1.000-1.030) H 05/21/19 19:00 Urine Protein 1+ (Negative) H 05/21/19 19:00 Urine Glucose (UA) 3+ (Negative) H 05/21/19 19:00 Urine Ketones 4+ (Negative) H 05/21/19 19:00 Urine Blood Negative (Negative) 05/21/19 19:00 Urine Nitrite Negative (Negative) 05/21/19 19:00 Urine Bilirubin Negative (Negative) 05/21/19 19:00 Urine Urobilinogen Negative (Negative) 05/21/19 19:00 Ur Leukocyte Esterase Negative (Negative) 05/21/19 19:00 Urine WBC (Auto) 1-5 /hpf (0-5) 05/21/19 19:00 Urine RBC (Auto) 0-4 /hpf (0-4) 05/21/19 19:00 U Hyaline Cast (Auto) 0 /lpf (0-5) 05/21/19 19:00 U Epithel Cells (Auto) 10-20 /lpf (0-5) H 05/21/19 19:00 Urine Bacteria (Auto) Negative (Negative) 05/21/19 19:[address] chest: 1. No evidence of acute pulmonary embolism 2. No evidence of focal pulmonary consolidation. 3. Increasing pneumomediastinum 4. Moderate mid to lower esophageal wall thickening. CT abdomen pelvis: 1. Moderate distal esophageal wall thickening 2. No evidence of bowel obstruction. No evidence of free air 3. No acute inflammatory changes within the abdomen. EKG as per my interpretation : rate 115, sinus tachycardia, normal axis, LAE, T wave flattening lateral leads (1) DKA (diabetic ketoacidoses) Diabetes mellitus complication detail: without coma Diabetes mellitus type: type 1 Qualified Code(s): E10.10 - Type 1 diabetes mellitus with ketoacidosis without coma
[2019-05-21] MEDS ORDERED: INSULIN GLARGINE SOLOSTAR 100 UNITS/ML 3 ML PEN SQ STA ×2 (21:04→21:08)
[2019-05-21 21:15] LABS: Basophils # (auto) 0.03 K/uL (0-0.2); Basophils % (auto) 0.2 %; Eosinophils # (auto) 0.04 K/uL (0-0.5); Eosinophils % (auto) 0.2 %; Immature Granulocytes # (auto) 0.07 K/uL (0.00-0.02); Immature Granulocytes % (auto) 0.4 %; Lymphocytes # (auto) 1.44 K/uL (1.2-3.4); Lymphocytes % (auto) 8.9 %; Monocytes # (auto) 0.31 K/uL (0.11-0.59); Monocytes % (auto) 1.9 %; Neutrophils # (auto) 14.34 K/uL (1.4-6.5); Neutrophils % (auto) 88.4 %; RBC Morphology Unremarkable
[2019-05-21] MEDS: NICOTINE 14 MG/24 HR PATCH TD SCH (21:54)
[2019-05-21] MEDS: LACTATED RINGER'S 1,000 ML IV SCH ×2 (21:54→23:46)
[2019-05-21 21:59] LABS: Base Excess VBG -7.7 mEq/L; HCO3 VBG 18 mmol/L; Oxygen Saturation VBG < 60.0 %; PCO2 VBG 37 mmHg (38-50); PO2 VBG 26 mmHg
[2019-05-21 22:04] LABS: BUN Creatinine Ratio 9.3 (10-20); Calcium 8.5 mg/dl (8.5-10.1); Creatinine Clr Calc Pharmacy 55.1 ml/min; Est GFR (African American) 79.2; Est GFR (Non-African American) 68.4; Potassium 3.9 mmol/L (3.5-5.1)
[2019-05-21] MEDS ORDERED: OPTIRAY 320 125ml IV PRN (22:48)
--- NOTE | 2019-05-21 22:56 | CT Scan Report ---
CT ANGIOGRAM OF THE CHEST CLINICAL HISTORY: Atypical chest pain and shortness of breath COMPARISON STUDY: Noncontrast chest CT dated 04/27/2019 TECHNIQUE: Following the IV administration of 118 mL of Optiray-320, CT angiogram of the thorax was p erformed from the thoracic inlet to the lung bases utilizing the pulmonary embolus protocol. Images a re reviewed in the axial, sagittal, and coronal planes. IV contrast was administered without complica tion. MIP imaging was performed. A dose lowering technique was utilized adhering to the principles o f ALARA. CT DOSE: 673.84 mGy.cm FINDINGS: No pathologically enlarged axillary mediastinal or hilar lymph nodes were visualized. There was no evidence of thoracic aortic dilatation. There were no pulmonary artery filling defects to indicate acute pulmonary embolism. No pleural effusions are visualized. There is no pneumothorax. There is no focal pulmonary consolidation. There is a pneumomediastinum. Th ere is moderate mid to lower esophageal wall thickening.. IMPRESSION: 1. No evidence of acute pulmonary embolism 2. No evidence of focal pulmonary consolidation. 3. Increasing pneumomediastinum 4. Moderate mid to lower esophageal wall thickening. Electronically signed by: Ramon Keyes M.D. 05/21/2019 10:55 PM
--- NOTE | 2019-05-21 22:59 | CT Scan Report ---
CT abd pelvis IV con only CLINICAL HISTORY: Abdominal pain. COMPARISON STUDY: April 27, 2019 TECHNIQUE: The patient was scanned in a dynamic helical fashion during intravenous administration of 1 18 cc of Optiray 320. A dose lowering technique was utilized adhering to the principles of ALARA. CT DOSE: FINDINGS: Lower chest: There is moderate distal esophageal wall thickening. There are no pleural effusions. Liver: The contrast-enhanced liver is normal in size, contour, and attenuation. There is no intrahepa tic biliary ductal dilatation. The hepatic veins and portal veins are patent. Gallbladder: Unremarkable. Spleen: Normal in size and attenuation. Pancreas: Unremarkable. Adrenal glands: Unremarkable. Kidneys: There is a tiny lower pole right renal cyst. There is no hydronephrosis. Bowel: Bowel evaluation is limited due to the possibility of intra-abdominal fat and the lack of oral ly administered contrast. There are no transition zones indicate bowel obstruction. There is no evide nce of acute diverticulitis. The appendix is not visualized with certainty Peritoneum: There is no intraperitoneal free air or abdominal ascites. Vasculature: The abdominal aorta is normal in course and caliber. Adenopathy: None. Pelvic viscera: The bladder, and pelvic viscera are unremarkable. Skeletal structures: No destructive osseous lesions are seen. IMPRESSION: 1. Moderate distal esophageal wall thickening 2. No evidence of bowel obstruction. No evidence of free air 3. No acute inflammatory changes within the abdomen. Electronically signed by: Ramon Keyes M.D. 05/21/2019 10:58 PM
[2019-05-21] MEDS ORDERED: LORazepam 0.25 MG/0.5 ML VIAL IV PRN (23:02)
[2019-05-21] MEDS ORDERED: ACETAMINOPHEN 325 MG TAB PO PRN (23:02)
[2019-05-21] MEDS ORDERED: PROMETHAZINE HCL 12.5 MG in SODIUM CHLORIDE 0.9% 50 ML IV PRN (23:02)
[2019-05-21] MEDS ORDERED: HYDROmorphone INJ 0.5 MG/0.5 ML SYR IV PRN (23:02)
[2019-05-21] MEDS ORDERED: ACETAMINOPHEN 65 ML IV PRN (23:45)
[2019-05-21] MEDS ORDERED: AMPICILLIN/SULBACTAM SOD 3,000 MG in 0.9 % SODIUM CHLORIDE 100 ML IV STA (23:54)
[2019-05-21] MEDS ORDERED: CONSULT PHARMACY STA (23:54)
[2019-05-22] MEDS ORDERED: LACTATED RINGER'S 1,000 ML IV ONE
[2019-05-22] MEDS ORDERED: PHARMACY GLYCEMIC MGMT CONSULT PRN (00:06)
[2019-05-22] MEDS ORDERED: GLUCOSE 40% GEL 15 GM TUBE PO PRN (00:45)
[2019-05-22] MEDS ORDERED: GLUCAGON FOR INJ 1 MG VIAL SQ PRN (00:45)
[2019-05-22] MEDS ORDERED: GLUCOSE 10 TABS/TUBE PO PRN (00:45)
[2019-05-22] MEDS ORDERED: INSULIN ASPART 100 UNITS/ML 3 ML PEN SC SCH ×2 (00:45→12:00)
[2019-05-22] MEDS ORDERED: DEXTROSE 50% 50 ML SYRINGE IV PRN (00:45)
[2019-05-22] MEDS ORDERED: CARBOHYDRATES FOR HYPOGLYCEMIA PO PRN (00:45)
[2019-05-22] MEDS ORDERED: LACTATED RINGER'S 1,000 ML IV SCH ×2 (02:00→06:00)
[2019-05-22] MEDS: PIPERACILLIN/TAZOBACTAM 3.375 GM in DEXTROSE 5% 100 ML IV SCH ×2 (02:35→12:04)
[2019-05-22 04:33] LABS: BUN Creatinine Ratio 8.4 (10-20); Calcium 7.9 mg/dl (8.5-10.1); Creatinine Clr Calc Pharmacy 91.2 ml/min; Est GFR (African American) 100.2; Est GFR (Non-African American) 86.5; Potassium 4.3 mmol/L (3.5-5.1)
[2019-05-22 04:46] LABS: pH VBG 7.28 (7.36-7.41)
[2019-05-22] MEDS ORDERED: SODIUM CHLORIDE 0.9% 1000ML 1,000 ML IV STA (05:05)
[2019-05-22] MEDS ORDERED: INSULIN HUMAN REGULAR PER UNIT 3 UNITS in SYRINGE 2.97 ML IV ONE (05:15)
[2019-05-22] MEDS ORDERED: INSULIN ASPART 100 UNITS/ML 3 ML PEN SC ONE (05:15)
[2019-05-22] MEDS ORDERED: INSULIN HUMAN REGULAR PER UNIT 5 UNITS in SYRINGE 4.95 ML IV ONE (05:45)
[2019-05-22] MEDS ORDERED: HEPARIN SOD 5,000 UNIT/0.5 ML VIAL SQ SCH (06:00)
--- NOTE | 2019-05-22 06:00 | Emergency Department Note ---
Entered by Shannen Gallagher acting as a scribe for Doug Rico MD History of Present Illness General Chief complaint: Vomiting Stated complaint: CHEST & AB PAIN Time Seen by Provider: 05/21/19 18:18 Source: patient Mode of arrival: EMS History of Present Illness Onset (ago): day(s) 1 Location: abdomen Severity: similar to prior episodes Maximum Pain Intensity: 6 Current Pain Intensity: 6 Associated symptoms: + nausea/vomiting Treatments prior to arrival: other (Zofran) The patient is a 34 year old male with a history of diabetes who presents to the Emergency Room with complaints of nausea and vomiting that began last night. The patient reports he was very agitated last night due to family problems, which is when his symptoms started. He notes that he did take his insulin before he went to bed, and that he has been taking it regularly each day. However, he was still upset this morning and states that he never got out of bed to take his insulin, and his symptoms continued to worsen. The patient has been admitted to the hospital before for DKA. Upon arrival, his sugar was in the high 400s. He reports smoking cigarettes, and denies alcohol or drug abuse. The patient received Zofran in the ambulance. Home Medications Home Medications Medication Instructions Recorded Confirmed Type insulin aspart U-100 1 - 10 unit SUBCUT TIDM 08/09/18 05/21/19 History insulin glargine 25 unit SUBCUT QAM 08/09/18 05/21/19 History Basaglar KwikPen U-100 Insulin 30 unit SUBCUT QPM 01/28/19 05/21/19 History Allergies Allergy/AdvReac Type Severity Reaction Status Date / Time methyl salicylate Allergy Unknown HIVES, Unverified 05/21/19 19:54 "FEELS LIKE FIRE ON MY SKIN" codeine AdvReac Intermediate BECOMES Verified 05/21/19 19:54 VERY AGGRESSIVE Past Med/Surg History Medical History DKA (diabetic ketoacidoses) (Acute) Epigastric pain (Acute) GERD (gastroesophageal reflux disease) (Acute) Diabetes (Chronic) Hypertension (Chronic) Major depressive disorder, recurrent episode Sebaceous cyst (Acute) Suicidal ideation (Acute) Tobacco abuse disorder Hx of psoriasis Surgical History No pertinent past surgical history Family History Other No significant family history Social History Preferred Language: [place] Communication Ability: Effective Beliefs That Will Affect Care: None marital status: Single Current Living Situation: Spouse current occupational status: employed Feels Safe at Home: Yes Safety Concerns: Feels Safe At This Time Smoking Status: Current every day smoker Tobacco Type: cigarettes ; Cigarettes Per Day: 1ppd ; Do You Dip or Chew Tobacco: No ; Hx Alcohol Use: No Hx Substance Use: No Review of Systems See HPI for pertinent positives & negatives. and A total of 10 systems reviewed and were otherwise negative Physical Exam Vital Signs Vital Signs - 24 hr 05/21/19 18:22 05/21/19 18:23 05/21/19 18:24 Temperature 37.0 C Temperature Source Oral Sepsis Recent Fever Within 48 Hours No Sepsis New/Unexplained Change in Mental Status No Sepsis Action Taken by Nursing No Action Required Pulse Rate 114 H 108 H 122 H Pulse Rate from SpO2 Sensor 112 H Pulse Rhythm Regular Respiratory Rate 19 26 H 26 H Blood Pressure 133/109 H 133/109 H Blood Pressure Mean 117 117 Blood Pressure Position Sitting Pulse Oximetry 100 98 98 Oxygen Delivery Method Room Air 05/21/19 18:25 05/21/19 18:30 05/21/19 19:00 Temperature Temperature Source Sepsis Recent Fever Within 48 Hours Sepsis New/Unexplained Change in Mental Status Sepsis Action Taken by Nursing Pulse Rate 115 H 112 H 121 H Pulse Rate from SpO2 Sensor 116 H 111 H Pulse Rhythm Respiratory Rate 22 20 20 Blood Pressure Blood Pressure Mean Blood Pressure Position Pulse Oximetry 100 100 Oxygen Delivery Method 05/21/19 19:30 05/21/19 20:00 05/21/19 20:30 Temperature Temperature Source Sepsis Recent Fever Within 48 Hours Sepsis New/Unexplained Change in Mental Status Sepsis Action Taken by Nursing Pulse Rate 98 H 115 H 99 H Pulse Rate from SpO2 Sensor 99 H 115 H 98 H Pulse Rhythm Respiratory Rate 17 20 22 Blood Pressure Blood Pressure Mean Blood Pressure Position Pulse Oximetry 100 98 99 Oxygen Delivery Method 05/21/19 21:00 Temperature Temperature Source Sepsis Recent Fever Within 48 Hours Sepsis New/Unexplained Change in Mental Status Sepsis Action Taken by Nursing Pulse Rate 108 H Pulse Rate from SpO2 Sensor 106 H Pulse Rhythm Respiratory Rate 17 Blood Pressure Blood Pressure Mean Blood Pressure Position Pulse Oximetry 98 Oxygen Delivery Method GENERAL: Awake, alert, uncomfortable and anxious appearing. HENT: Normocephalic, atraumatic. Oropharynx with dry mucous membranes and otherwise unremarkable. EYES: Normal conjunctiva. Sclera non-icteric. NECK: Supple. No nuchal rigidity. FROM. No JVD. RESPIRATORY: CTAB CARDIAC: Tachycardic, normal rhythm. Extremities warm and well perfused. Pulses equal. ABDOMEN: Soft, non-distended. Mild epigastric discomfort with no discrete tenderness. No rebound or guarding. No masses. RECTAL: Deferred. MUSCULOSKELETAL: Chest examination reveals no tenderness. The back is symmetrical on inspection without obvious abnormality. There is no CVA tenderness to palpation. No joint edema. LOWER EXTREMITIES: Calves are equal size bilaterally and non-tender. No edema. No discoloration. NEURO: Normal sensorium. No sensory or motor deficits noted. SKIN: No rash or jaundice noted. Course 1820: Past medical records reviewed. The patient was evaluated in room B06. A complete history and physical exam was performed. 193: I spoke to Fermin Villagran, [facility] hospitalist, regarding the patient. He agreed to take over care of the patient for further evaluation and treatment. Administered Medications Piperacillin Sod/Tazobactam (Sod 3.375 gm/ Dextrose) 115 mls @ 28.75 mls/hr IV Q8H GIL; Protocol Stop: 05/29/19 01:59 Last Admin: 05/22/19 02:35 Dose: 28.8 mls/hr Documented by: [id number] Sodium Chloride (Nss 1000ml) 1,000 mls @ 999 mls/hr IV .Q1H1M STA Stop: 05/22/19 06:05 Last Admin: 05/22/19 05:17 Dose: 999 mls/hr Documented by: [id number] Ioversol (Optiray 320 125ml) 125 ml IV ONCE PRN PRN Reason: Interaction Checking Stop: 05/25/19 22:47 Last Admin: 05/21/19 22:49 Dose: 118 ml Documented by: [id number] Nicotine (Nicoderm Cq) 14 mg TD HS GIL Stop: 06/20/19 21:04 Last Admin: 05/21/19 21:54 Dose: 14 mg Documented by: [id number] Discontinued Medications Famotidine (Pepcid 20mg Iv Push) 20 mg in 5 mls @ 2.5 mls/min IV NOW STA Stop: 05/21/19 18:25 Last Admin: 05/21/19 18:57 Dose: 2.5 mls/min Documented by: [id number] Acetaminophen (Ofirmev) 1,000 mg in 100 mls @ 400 mls/hr IV NOW STA Stop: 05/21/19 18:38 Last Infusion: 05/21/19 19:12 Dose: 0 mls/hr Documented by: [id number] Admin: 05/21/19 18:57 Dose: 400 mls/hr Documented by: [id number] Prochlorperazine (Compazine) 2 mls @ 1 mls/min IV ONE ONE Stop: 05/21/19 18:25 Last Admin: 05/21/19 18:57 Dose: 1 mls/min Documented by: [id number] Sodium Chloride (Nss 1000ml) 2,000 mls @ 999 mls/hr IV .Q2H1M ONE Stop: 05/21/19 20:24 Last Infusion: 05/21/19 20:15 Dose: 0 mls/hr Documented by: [id number] Admin: 05/21/19 18:57 Dose: 999 mls/hr Documented by: [id number] Insulin Human Regular 250 (units/ Sodium Chloride) 250 mls @ 5 mls/hr IV .Q24H [facility]; Protocol Stop: 06/20/19 19:29 Last Admin: 05/21/19 22:08 Dose: Not Given Documented by: [id number] Potassium Chloride (K Brant / Wtr) 10 meq in 100 mls @ 100 mls/hr IV Q2H STA Stop: 05/21/19 20:24 Last Infusion: 05/21/19 21:46 Dose: 0 mls/hr Documented by: [id number] Admin: 05/21/19 20:21 Dose: 100 mls/hr Documented by: [id number] Sodium Chloride (Nss 1000ml) 1,000 mls @ 250 mls/hr IV .Q4H STA Stop: 05/21/19 23:24 Last Admin: 05/21/19 20:26 Dose: Not Given Documented by: [id number] Lactated Ringer's (Lr) 1,000 mls @ 500 mls/hr IV .Q2H ONE Stop: 05/21/19 22:29 Last Infusion: 05/21/19 22:22 Dose: 0 mls/hr Documented by: [id number] Admin: 05/21/19 20:21 Dose: 500 mls/hr Documented by: [id number] Lactated Ringer's (Lr) 1,000 mls @ 250 mls/hr IV .Q4H GIL Stop: 06/20/19 21:29 Last Infusion: 05/22/19 00:37 Dose: 0 mls/hr Documented by: [id number] Admin: 05/21/19 23:46 Dose: 250 mls/hr Documented by: [id number] Ampicillin Sodium/Sulbactam Sodium 3,000 mg/ Sodium Chloride 108 mls @ 200 m ls/hr IV NOW STA Stop: 05/22/19 00:26 Last Infusion: 05/22/19 01:18 Dose: 0 mls/hr Documented by: [id number] Infusion: 05/22/19 00:43 Dose: 200 mls/hr Documented by: [id number] Infusion: 05/22/19 00:33 Dose: 0 mls/hr Documented by: [id number] Admin: 05/22/19 00:32 Dose: 200 mls/hr Documented by: [id number] Lactated Ringer's (Lr) 1,000 mls @ 500 mls/hr IV .Q2H ONE Stop: 05/22/19 01:59 Last Infusion: 05/22/19 02:36 Dose: 0 mls/hr Documented by: [id number] Admin: 05/22/19 00:32 Dose: 500 mls/hr Documented by: [id number] Lactated Ringer's (Lr) 1,000 mls @ 250 mls/hr IV .Q4H GIL Stop: 06/21/19 01:59 Last Infusion: 05/22/19 05:25 Dose: 0 mls/hr Documented by: [id number] Admin: 05/22/19 02:36 Dose: 250 mls/hr Documented by: [id number] Insulin Aspart (Novolog Flexpen) 0 units SC Q6 GIL Stop: 06/21/19 00:44 Last Admin: 05/22/19 01:11 Dose: 1 units Documented by: [id number] Cosigned by: [id number] Insulin Glargine (Lantus Solostar Pen) 10 units SQ NOW STA Stop: 05/21/19 21:05 Last Admin: 05/21/19 21:04 Dose: Not Given Documented by: [id number] Cosigned by: [id number] Insulin Glargine (Lantus Solostar Pen) 20 units SQ NOW STA Stop: 05/21/19 21:09 Last Admin: 05/21/19 22:19 Dose: Not Given Documented by: [id number] Cosigned by: [id number] Miscellaneous (Insulin Protocol Dka Goal Range) 1 ea N/A ONE ONE Stop: 05/21/19 19:24 Last Admin: 05/21/19 19:53 Dose: Not Given Documented by: [id number] Medical Decision Making Differential Diagnosis Differential diagnosis includes: appendicitis, diverticulitis, PUD, biliary pathology, UTI, pancreatitis, obstruction, mesenteric ischemia, aortic pathology, infections, inflammatory bowel disease, renal colic, as well as other s were entertained. Medical Records Attestation: I reviewed the patient's medical records. The patient has a history of diabetes and has prior hospital admittance for DKA. Home Medications Current Medication List: was personally reviewed by me Laboratory Data Attestation: I reviewed the patient's lab results. Result diagrams: 05/21/19 18:45 05/22/19 04:03 Lab Results 05/21/19 05/21/19 05/21/19 Range/Units 18:35 18:44 18:45 WBC 16.23 H (4.8-10.8) K/uL RBC 6.00 (4.7-6.1) M/uL Hgb 19.5 H (14.0-18.0) g/dL POC Hgb 18.0 (14.0-18.0) g/dl Hct 53.9 H (42-52) % POC Hct 53 H (42-52) % MCV 89.8 (80-100) fL MCH 32.5 (25-34) pg MCHC 36.2 H (32-36) g/dL RDW Std Deviation 41.7 (36.4-46.3) fL RDW Coeff of Bhavik 12.8 (11.5-14.5) % Plt Count 243 (130-400) K/uL MPV 9.7 (7.4-10.4) fL Immature Gran % (Auto) 0.4 % Neut % (Auto) 88.4 % Lymph % (Auto) 8.9 % Bertie % (Auto) 1.9 % Eos % (Auto) 0.2 % Baso % (Auto) 0.2 % Immature Gran # (Auto) 0.07 H (0.00-0.02) K/uL Neut # (Auto) 14.34 H (1.4-6.5) K/uL Lymph # (Auto) 1.44 (1.2-3.4) K/uL Bertie # (Auto) 0.31 (0.11-0.59) K/uL Eos # (Auto) 0.04 (0-0.5) K/uL Baso # (Auto) 0.03 (0-0.2) K/uL RBC Morphology Unremarkable VBG pH 7.16 L (7.36-7.41) VBG pCO2 31 L (38-50) mmHg VBG pO2 45 mmHg VBG HCO3 11 mmol/L VBG O2 Saturation 76.8 % VBG Base Excess -16.4 mEq/L Barometric Pressure 732.8 mm/Hg POC Sodium 134 L (135-144) mEq/L Sodium (136-145) mmol/L POC Potassium 4.3 (3.3-5.0) mEq/L Potassium (3.5-5.1) mmol/L POC Chloride 102 (101-112) mEq/L Chloride (98-107) mmol/L Carbon Dioxide (21-32) mmol/L POC Total CO2 12 L (24-31) mEq/l Anion Gap (3-11) POC Anion Gap 25.0 (16-25) mmol/L POC BUN 14 (7-18) mg/dl BUN (7-18) mg/dl Creatinine (0.6-1.4) mg/dl POC Creatinine 0.9 (0.6-1.3) mg/dl Est Cr Clr Drug Dosing ml/min Est GFR ( Amer) Est GFR (Non-Af Amer) BUN/Creatinine Ratio (10-20) Glucose (70-99) mg/dl POC Glucose (70-99) POC Glucose (other) 394 H* (70-99) mg/dl Osmolality (280-300) mOsm/kg Calcium (8.5-10.1) mg/dl POC Ioniz Calcium Andrew 1.10 L (1.12-1.32) mmol/l Phosphorus (2.5-4.9) mg/dl Magnesium (1.8-2.4) mg/dl Total Bilirubin (0.2-1) mg/dl Direct Bilirubin (0-0.2) mg/dl AST (15-37) U/L ALT (12-78) U/L Alkaline Phosphatase (45-117) U/L Troponin I (0-0.045) ng/ml Total Protein (6.4-8.2) gm/dl Albumin (3.4-5.0) gm/dl Globulin (2.5-4.0) gm/dl Albumin/Globulin Ratio (0.9-2) Lipase (73-393) U/L Beta-Hydroxybutyric Acd (0.2-2.81) mg/dl TSH (0.300-4.500) uIu/ml Urine Color Urine Appearance (Clear) Urine pH (4.5-7.5) Ur Specific [place] (1.000-1.030) Urine Protein (Negative) Urine Glucose (UA) (Negative) Urine Ketones (Negative) Urine Blood (Negative) Urine Nitrite (Negative) Urine Bilirubin (Negative) Urine Urobilinogen (Negative) Ur Leukocyte Esterase (Negative) Urine WBC (Auto) (0-5) /hpf Urine RBC (Auto) (0-4) /hpf U Hyaline Cast (Auto) (0-5) /lpf U Epithel Cells (Auto) (0-5) /lpf Urine Bacteria (Auto) (Negative) 05/21/19 05/21/19 05/21/19 Range/Units 18:45 18:45 18:45 WBC (4.8-10.8) K/uL RBC (4.7-6.1) M/uL Hgb (14.0-18.0) g/dL POC Hgb (14.0-18.0) g/dl Hct (42-52) % POC Hct (42-52) % MCV (80-100) fL MCH (25-34) pg MCHC (32-36) g/dL RDW Std Deviation (36.4-46.3) fL RDW Coeff of Bhavik (11.5-14.5) % Plt Count (130-400) K/uL MPV (7.4-10.4) fL Immature Gran % (Auto) % Neut % (Auto) % Lymph % (Auto) % Bertie % (Auto) % Eos % (Auto) % Baso % (Auto) % Immature Gran # (Auto) (0.00-0.02) K/uL Neut # (Auto) (1.4-6.5) K/uL Lymph # (Auto) (1.2-3.4) K/uL Bertie # (Auto) (0.11-0.59) K/uL Eos # (Auto) (0-0.5) K/uL Baso # (Auto) (0-0.2) K/uL RBC Morphology VBG pH (7.36-7.41) VBG pCO2 (38-50) mmHg VBG pO2 mmHg VBG HCO3 mmol/L VBG O2 Saturation % VBG Base Excess mEq/L Barometric Pressure mm/Hg POC Sodium (135-144) mEq/L Sodium 135 L (136-145) mmol/L POC Potassium (3.3-5.0) mEq/L Potassium 4.0 (3.5-5.1) mmol/L POC Chloride (101-112) mEq/L Chloride 99 (98-107) mmol/L Carbon Dioxide 10 L (21-32) mmol/L POC Total CO2 (24-31) mEq/l Anion Gap 26.0 H (3-11) POC Anion Gap (16-25) mmol/L POC BUN (7-18) mg/dl BUN 14 (7-18) mg/dl Creatinine 1.63 H (0.6-1.4) mg/dl POC Creatinine (0.6-1.3) mg/dl Est Cr Clr Drug Dosing 46.0 ml/min Est GFR ( Amer) 63.7 Est GFR (Non-Af Amer) 54.9 BUN/Creatinine Ratio 8.7 L (10-20) Glucose 370 H* (70-99) mg/dl POC Glucose (70-99) POC Glucose (other) (70-99) mg/dl Osmolality 319 H (280-300) mOsm/kg Calcium 8.6 (8.5-10.1) mg/dl POC Ioniz Calcium Andrew (1.12-1.32) mmol/l Phosphorus 3.7 (2.5-4.9) mg/dl Magnesium 2.1 (1.8-2.4) mg/dl Total Bilirubin 0.9 (0.2-1) mg/dl Direct Bilirubin 0.2 (0-0.2) mg/dl AST 22 (15-37) U/L ALT 33 (12-78) U/L Alkaline Phosphatase 143 H (45-117) U/L Troponin I < 0.015 (0-0.045) ng/ml Total Protein 8.2 (6.4-8.2) gm/dl Albumin 4.4 (3.4-5.0) gm/dl Globulin 3.8 (2.5-4.0) gm/dl Albumin/Globulin Ratio 1.2 (0.9-2) Lipase 55 L (73-393) U/L Beta-Hydroxybutyric Acd 93.95 H (0.2-2.81) mg/dl TSH 0.415 (0.300-4.500) uIu/ml Urine Color Urine Appearance (Clear) Urine pH (4.5-7.5) Ur Specific [place] (1.000-1.030) Urine Protein (Negative) Urine Glucose (UA) (Negative) Urine Ketones (Negative) Urine Blood (Negative) Urine Nitrite (Negative) Urine Bilirubin (Negative) Urine Urobilinogen (Negative) Ur Leukocyte Esterase (Negative) Urine WBC (Auto) (0-5) /hpf Urine RBC (Auto) (0-4) /hpf U Hyaline Cast (Auto) (0-5) /lpf U Epithel Cells (Auto) (0-5) /lpf Urine Bacteria (Auto) (Negative) 05/21/19 05/21/19 Range/Units 19:00 20:03 WBC (4.8-10.8) K/uL RBC (4.7-6.1) M/uL Hgb (14.0-18.0) g/dL POC Hgb (14.0-18.0) g/dl Hct (42-52) % POC Hct (42-52) % MCV (80-100) fL MCH (25-34) pg MCHC (32-36) g/dL RDW Std Deviation (36.4-46.3) fL RDW Coeff of Bhavik (11.5-14.5) % Plt Count (130-400) K/uL MPV (7.4-10.4) fL Immature Gran % (Auto) % Neut % (Auto) % Lymph % (Auto) % Bertie % (Auto) % Eos % (Auto) % Baso % (Auto) % Immature Gran # (Auto) (0.00-0.02) K/uL Neut # (Auto) (1.4-6.5) K/uL Lymph # (Auto) (1.2-3.4) K/uL Bertie # (Auto) (0.11-0.59) K/uL Eos # (Auto) (0-0.5) K/uL Baso # (Auto) (0-0.2) K/uL RBC Morphology VBG pH (7.36-7.41) VBG pCO2 (38-50) mmHg VBG pO2 mmHg VBG HCO3 mmol/L VBG O2 Saturation % VBG Base Excess mEq/L Barometric Pressure mm/Hg POC Sodium (135-144) mEq/L Sodium (136-145) mmol/L POC Potassium (3.3-5.0) mEq/L Potassium (3.5-5.1) mmol/L POC Chloride (101-112) mEq/L Chloride (98-107) mmol/L Carbon Dioxide (21-32) mmol/L POC Total CO2 (24-31) mEq/l Anion Gap (3-11) POC Anion Gap (16-25) mmol/L POC BUN (7-18) mg/dl BUN (7-18) mg/dl Creatinine (0.6-1.4) mg/dl POC Creatinine (0.6-1.3) mg/dl Est Cr Clr Drug Dosing ml/min Est GFR ( Amer) Est GFR (Non-Af Amer) BUN/Creatinine Ratio (10-20) Glucose (70-99) mg/dl POC Glucose 248 H (70-99) POC Glucose (other) (70-99) mg/dl Osmolality (280-300) mOsm/kg Calcium (8.5-10.1) mg/dl POC Ioniz Calcium Andrew (1.12-1.32) mmol/l Phosphorus (2.5-4.9) mg/dl Magnesium (1.8-2.4) mg/dl Total Bilirubin (0.2-1) mg/dl Direct Bilirubin (0-0.2) mg/dl AST (15-37) U/L ALT (12-78) U/L Alkaline Phosphatase (45-117) U/L Troponin I (0-0.045) ng/ml Total Protein (6.4-8.2) gm/dl Albumin (3.4-5.0) gm/dl Globulin (2.5-4.0) gm/dl Albumin/Globulin Ratio (0.9-2) Lipase (73-393) U/L Beta-Hydroxybutyric Acd (0.2-2.81) mg/dl TSH (0.300-4.500) uIu/ml Urine Color Yellow Urine Appearance Clear (Clear) Urine pH 5.0 (4.5-7.5) Ur Specific [place] 1.033 H (1.000-1.030) Urine Protein 1+ H (Negative) Urine Glucose (UA) 3+ H (Negative) Urine Ketones 4+ H (Negative) Urine Blood Negative (Negative) Urine Nitrite Negative (Negative) Urine Bilirubin Negative (Negative) Urine Urobilinogen Negative (Negative) Ur Leukocyte Esterase Negative (Negative) Urine WBC (Auto) 1-5 (0-5) /hpf Urine RBC (Auto) 0-4 (0-4) /hpf U Hyaline Cast (Auto) 0 (0-5) /lpf U Epithel Cells (Auto) 10-20 H (0-5) /lpf Urine Bacteria (Auto) Negative (Negative) Imaging Data Radiologist's Impression: Radiology results as stated below per my review and the radiologist's interpretation: XR chest 1V portable CLINICAL HISTORY: Atypical chest pain COMPARISON STUDY: 04/28/2019 FINDINGS: The cardiac and mediastinal contours are normal. There is no evidence of focal pulmonary consolidation. There is no evidence of failure. No pleural effusions are visualized.[No pneumothorax is visualized. IMPRESSION: No active disease in the chest. Electronically signed by: Ramon Keyes M.D. ECG Data Attestation: I personally reviewed and interpreted this ECG as follows: Indication: abdominal pain Rate (beats per minute): 116 Rhythm: sinus tachycardia Findings: + other (normal axis); no acute ischemic change Blood Pressure Blood Pressure Findings: Elevated blood pressure Blood Pressure Disposition: further management by hospitalist RODRICK Narrative The patient is a pleasant 34 y/o gentleman with a pmhx of IDDM1 who presents to the emergency department with chest/abdominal pain and body aches that began today per HPI. Of note, patient was admitted at the end of April for DKA. Today, symptoms occur in the setting of having family barbecue where he ate [employer] and patient's partner admits that he is not diligent with adjusting his insulin for carbs. He later received upsetting news regarding custody discussions with the mother of his children and was feeling depressed. This morning he felt sick and so he did not take his insulin and progressively felt more ill. On arrival the patient is uncomfortable appearing in NAD, AF, HR 110s and otherwise VSS. Patient appears clinically dry. Mild epigastric discomfort without discrete ttp. EKG without acute ischemia. CXR negative PNA or free air. WBC 16, nonspecific. H/H 19.5/53.9 and platelets 243. Overall CBC appears hemoconcentrated and c/w patient's clinically dry appearance. Bicarb 10 with Agap 26. Cr. 1.6. Glc 370. Osm 319. BHB 93 and pH 7.16 on VBG. Findings c/w DKA. BSG improving with IVF hydration. Patient improved after IV pepcid, compazine, apap. Insulin gtt ordered. NSS with KCL ordered. Case was discussed with Dr. Villagran, [facility]ist, who will evaluate the patient for admission. Impression & Plan DKA (diabetic ketoacidoses), Dehydration Critical Care Time Critical Care Time: Yes Total Critical Care Time: 65 I have personally spent greater than 65 minutes of critical care time in the direct management of this patient. This includes bedside care, interpretation of diagnostic studies, and testing, discussion with consultants, patient, and family members, and other required patient management activities. This 65 minutes is in excess of all separately billable procedures. Discharge Plan Visit Data *Final* Discharge Date/Time: 05/21/19 22:30 Chief Complaint: Vomiting Stated Complaint: CHEST & AB PAIN ED Provider: Doug Rico Discharge Problem: DKA (diabetic ketoacidoses), Dehydration Patient Disposition: Admitted As Inpatient Discharge Instructions Interventions: ED Discharge Assessment Last Done: 05/21/19 22:30 Discharge Problem: DKA (diabetic ketoacidoses) Qualifiers: Diabetes mellitus type: type 1 Diabetes mellitus complication detail: without coma Qualified Code(s): E10.10 - Type 1 diabetes mellitus with ketoacidosis without coma The scribe's documentation has been prepared under my direction and personally reviewed by me in its entirety. I confirm that the note above accurately reflects all work, treatment, procedures, and medical decision making performed by me.
[2019-05-22 06:18] LABS: Amphetamines+Metham, Urine Neg (Neg); Barbiturates, Urine Neg (Neg); Benzodiazepine, Urine Neg (Neg); Cocaine, Urine Neg (Neg); MDMA (Ecstacy), Urine Neg (Neg); Methadone, Urine Neg (Neg); Opiate, Urine Neg (Neg); Phencyclidine, Urine Neg (Neg)
[2019-05-22 07:42] LABS: Basophils # (auto) 0.02 K/uL (0-0.2); Basophils % (auto) 0.2 %; Eosinophils # (auto) 0.03 K/uL (0-0.5); Eosinophils % (auto) 0.2 %; Hematocrit (blood only) 40.2 % (42-52); Hemoglobin 15.2 g/dL (14.0-18.0); Immature Granulocytes # (auto) 0.05 K/uL (0.00-0.02); Immature Granulocytes % (auto) 0.4 %; Lymphocytes # (auto) 1.12 K/uL (1.2-3.4); Lymphocytes % (auto) 8.8 %; Mean Corpuscular Hemoglobin 33.3 pg (25-34); Mean Corpuscular Hgb Conc 37.8 g/dL (32-36); Mean Corpuscular Volume 88.2 fL (80-100); Monocytes # (auto) 1.36 K/uL (0.11-0.59); Monocytes % (auto) 10.7 %; Neutrophils # (auto) 10.14 K/uL (1.4-6.5); Neutrophils % (auto) 79.7 %; Platelet Count 191 K/uL (130-400); Red Blood Count 4.56 M/uL (4.7-6.1); White Blood Count 12.72 K/uL (4.8-10.8)
[2019-05-22] MEDS ORDERED: INSULIN GLARGINE SOLOSTAR 100 UNITS/ML 3 ML PEN SC SCH (08:00)
[2019-05-22 08:22] LABS: Base Excess VBG -10.1 mEq/L; Oxygen Saturation VBG 96.1 %; pH VBG 7.35 (7.36-7.41)
[2019-05-22] MEDS ORDERED: INSULIN REGULAR 250 UNITS in SODIUM CHLORIDE 0.9% 247.5 ML IV SCH (08:30)
[2019-05-22] MEDS ORDERED: PANTOprazole 40 MG in SYRINGE 0 ML IV SCH ×2 (08:30→11:00)
[2019-05-22 08:44] LABS: BUN Creatinine Ratio 6.9 (10-20); Calcium 7.9 mg/dl (8.5-10.1); Creatinine Clr Calc Pharmacy 83.1 ml/min; Est GFR (African American) 89.5; Est GFR (Non-African American) 77.2; Potassium 3.8 mmol/L (3.5-5.1)
[2019-05-22 08:50] LABS: Phosphorus 1.6 mg/dl (2.5-4.9)
[2019-05-22] MEDS ORDERED: SODIUM PHOSPHATE 3 MMOL/1 ML INFUSION IV STA (08:55)
[2019-05-22] MEDS ORDERED: AMPICILLIN/SULBACTAM CONSULT ACTIVE PRN (09:00)
[2019-05-22] MEDS ORDERED: DKA GOAL RANGE 150-250 mg/dl ONE (09:00)
[2019-05-22] MEDS ORDERED: PIPERACILL/TAZOBAC CONSULT ACTIVE PRN (09:00)
[2019-05-22] MEDS ORDERED: SODIUM PHOSPHATE 15 MMOL in SODIUM CHLORIDE 0.9% 250 ML IV ONE (09:15)
[2019-05-22] MEDS: D5W AND 1/2NSS + 20MEQ KCL 20 MEQ/1,000 ML BAG IV SCH ×2 (09:58→13:52)
--- NOTE | 2019-05-22 12:06 | Surgery Consultation ---
Date of Consultation May 22, 2019 Assessment & Plan (1) Pneumomediastinum: I had a long talk with Mr. Moscoso. This is a benign process. I would not work it up anymore. I would allow him to eat. I would not do another barium swallow. I believe this is due to his retching. I believe this is related to his lungs. He has no evidence of a pneumothorax. This should resolve. We will follow along. For asking us to see this very nice patient. Present on Admission?: Yes History of Present Illness Attending Physician: Prem Livingston MD History of Present Illness All who has poorly controlled juvenile onset diabetes mellitus. Patient missed his medication presented with diabetic ketoacidosis. Patient presented with a pneumomediastinum about 3-1/2 weeks ago. He was noted to have the pneumomediastinum on CT scan. I was not impressed however as his clinical course certainly did not suggest an esophageal perforation. He got better from this and I was scheduled to see him in the office although we did did not see him before this readmission. Patient underwent another CT scan of his chest and abdomen was found to have persistent new mediastinum in the upper part of his chest. This is not around his esophagus. This is much less than he had back in April. Clinically he seems quite good. He has no subcutaneous emphysema I can palpate. Aeration is good. Has comment on this pneumomediastinum. He has no hemoptysis. He has been vomiting. He is not hypoxic. He is not toxic. Allergies Allergy/AdvReac Type Severity Reaction Status Date / Time methyl salicylate Allergy Unknown HIVES, Unverified 05/21/19 19:54 "FEELS LIKE FIRE ON MY SKIN" codeine AdvReac Intermediate BECOMES Verified 05/21/19 19:54 VERY AGGRESSIVE Home Medications Home Medications Medication Instructions Recorded Confirmed Type insulin aspart U-100 1 - 10 unit SUBCUT TIDM 08/09/18 05/21/19 History insulin glargine 25 unit SUBCUT QAM 08/09/18 05/21/19 History Basaglar KwikPen U-100 Insulin 30 unit SUBCUT QPM 01/28/19 05/21/19 History Patient History Medical History DKA (diabetic ketoacidoses) (Acute) Epigastric pain (Acute) GERD (gastroesophageal reflux disease) (Acute) Diabetes (Chronic) Hypertension (Chronic) Major depressive disorder, recurrent episode Sebaceous cyst (Acute) Suicidal ideation (Acute) Tobacco abuse disorder Hx of psoriasis Surgical History No pertinent past surgical history Family History Other No significant family history Social History Preferred Language: Serbian Communication Ability: Effective Beliefs That Will Affect Care: None marital status: Single Current Living Situation: Spouse current occupational status: employed Feels Safe at Home: Yes Safety Concerns: Feels Safe At This Time Smoking Status: Current every day smoker Tobacco Type: cigarettes ; Cigarettes Per Day: 1ppd ; Do You Dip or Chew Tobacco: No ; Hx Alcohol Use: No Hx Substance Use: No Review of Systems Review of Systems: All systems reviewed & are unremarkable except as noted in HPI & below Patient's blood sugars have been poorly controlled with hemoglobin A1c over 11. I would have to disagree that he has increasing pneumomediastinum. I am not very impressed. Patient continues to smoke cigarettes. He denies a productive cough however he does have shortness of breath. He denies hemoptysis. He did not take his insulin as he felt that his blood sugars were high. He denied hematemesis or hemoptysis. He did have some upper abdominal pain with some left-sided chest pain which is pleuritic in nature and began vomiting. He had no other pulmonary symptoms. Denies any wound breakdown. He said no palpitations. He has had no hearing or visual changes. He had no peripheral edema. He feels much better this morning. Physical Exam Physical Exam: I actually believe Mr. Moscoso looks better than he did a month ago. He appears to have gained some weight and states that he feels that he has. His skin is warm and dry. He has no diaphoresis. He is awake alert and oriented. He is on room air. He has good saturations. He is conversant and does not appear to be in any distress. His extra documents are intact. Sclera are pale but anicteric. He has been a little funny. Tongue is midline. His neck supple. He has no supra clavicular cervical lymphadenopathy. Lungs are clear. Has regular rate and rhythm of his heart. His abdomen is soft and is no peripheral edema. He has no joint effusions. He has no skin breakdown. He has excellent peripheral pulses. Neurologically is completely intact. He has very mild tenderness in the subxiphoid area. Results & Data Vital Signs (Past 12 Hours) Vital Signs Temp Pulse Resp BP BP Pulse Ox 05/22/19 11:24 36.8 C 97 H 18 118/74 98 05/22/19 07:49 36.4 C L 102 H 20 125/67 98 05/22/19 04:32 37.1 C 111 H 18 120/64 97 PG Care Time/CCT Total # of Minutes Spent Total Time Spent with Patient: Total time spent is greater than 50% in coordination of care (as documented) at patient's floor/unit and/or counseling patient:
[2019-05-22 12:07] LABS: Base Excess VBG -2.6 mEq/L; Oxygen Saturation VBG 86.2 %; pH VBG 7.41 (7.36-7.41)
[2019-05-22] MEDS: PENDING D5 1/2NS+20mEq KCL IVF SCH ×2 (12:28→12:29)
[2019-05-22] MEDS: PENDING 1/2NSS+20mEq KCL IVF SCH ×3 (12:29→15:21)
[2019-05-22 12:30] LABS: BUN Creatinine Ratio 5.4 (10-20); Calcium 7.5 mg/dl (8.5-10.1); Creatinine Clr Calc Pharmacy 80.5 ml/min; Est GFR (African American) 86.1; Est GFR (Non-African American) 74.3; Potassium 3.5 mmol/L (3.5-5.1)
--- NOTE | 2019-05-22 15:33 | Hospitalist Progress Note ---
Date of Service May 22, 2019 Assessment & Plan (1) DKA (diabetic ketoacidoses): DKA SIRS--No obvious source of infection Non compliance due to Insurance issues H/O Type I DM Hb A1C:11.4 Continue IV insulin infusion Continue IV fluids Anion gap closed Acidosis corrected Monitor electrolytes and replace as needed Appreciate glycemic pharmacy consult Transition to SQ Insulin as able Advance diet as tolerated Increasing pneumomediastinum Likely due to esophagitis from severe retching Appreciate CT surgery Input Continue PPI Acute Kidney Injury Likely prerenal due to DKA Resolved with IV fluids Continue IV fluids Monitor renal function Avoid nephrotoxic agents as able Depression Patient prefers to avoid medications Ongoing tobacco abuse Counseled to quit smoking Nicotine patch DVT Px: SCDs Encourage to ambulate Code Status Full Code Disposition: Expect to discharge home in stable Consulted case management for insurance issues Subjective Patient is seen and examined at bedside Complains of epigastric, left parasternal tenderness Also reports left ear infection Denies any shortness of breath, dizziness, nausea Admits to being noncompliant with insulin therapy secondary to insurance and financial issues. Offers no other complaints Review of Systems Review of Systems: All systems reviewed & are unremarkable except as noted in HPI & below Physical Exam Physical Exam: Physical Exam: Vitals signs as noted above General Appearance:Thin, no apparent distress Head: normocephalic, Atraumatic Eyes: normal inspection, EOMI Neck: supple, Trachea midline Respiratory/Chest: Normal breath sounds, CTA, mild left parasternal tender Cardiovascular: S1, S2, No murmur Abdomen/GI:Soft, epigastric tender, Bowel sounds present Extremities/Musculoskelatal:normal inspection, no edema 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:AAOX3, grossly no focal neurological deficits Skin: normal color, warm Results & Data Vital Signs (Past 12 Hours) Vital Signs Temp Pulse Resp BP BP Pulse Ox 05/22/19 11:24 36.8 C 97 H 18 118/74 98 05/22/19 07:49 36.4 C L 102 H 20 125/67 98 05/22/19 04:32 37.1 C 111 H 18 120/64 97 Laboratory Results Short CBC 05/21/19 05/22/19 Range/Units 18:45 04:03 WBC 16.23 H 12.72 H (4.8-10.8) K/uL Hgb 19.5 H 15.2 D (14.0-18.0) g/dL Hct 53.9 H 40.2 L (42-52) % Plt Count 243 191 (130-400) K/uL BMP 05/21/19 05/21/19 05/22/19 18:45 21:30 04:03 Sodium 135 L 137 135 L Potassium 4.0 3.9 4.3 Chloride 99 104 101 Carbon Dioxide 10 L 17 L 13 L BUN 14 13 9 Creatinine 1.63 H 1.36 1.12 Glucose 370 H* 176 H 286 H Calcium 8.6 8.5 7.9 L 05/22/19 05/22/19 08:04 11:52 Sodium 135 L 138 Potassium 3.8 3.5 Chloride 105 107 Carbon Dioxide 13 L 23 BUN 9 7 Creatinine 1.23 1.27 Glucose 229 H 163 H Calcium 7.9 L 7.5 L Cardiac Enzymes 05/21/19 05/22/19 Range/Units 18:45 04:03 Total Creatine Kinase 49 (39-308) U/L Troponin I < 0.015 (0-0.045) ng/ml Liver Function 05/21/19 Range/Units 18:45 Total Bilirubin 0.9 (0.2-1) mg/dl Direct Bilirubin 0.2 (0-0.2) mg/dl AST 22 (15-37) U/L ALT 33 (12-78) U/L Alkaline Phosphatase 143 H (45-117) U/L Albumin 4.4 (3.4-5.0) gm/dl Urine 05/21/19 Range/Units 19:00 Urine Color Yellow Urine Appearance Clear (Clear) Urine pH 5.0 (4.5-7.5) Ur Specific [place] 1.033 H (1.000-1.030) Urine Protein 1+ H (Negative) Urine Glucose (UA) 3+ H (Negative) (1) DKA (diabetic ketoacidoses) Diabetes mellitus complication detail: without coma Diabetes mellitus type: type 1 Qualified Code(s): E10.10 - Type 1 diabetes mellitus with ketoacidosis without coma
--- NOTE | 2019-05-22 15:46 | Pharmacy Report ---
Glycemic Control Consultation - Date of Service May 22, 2019 - Scope Scope: Glycemic Pharmacist consulted by Dr [] on [date] for glycemic control and to write orders per [facility] inpatient glycemic control protocol - Objective Weight: 68.13 kg Accuchecks BSG (last 24hrs): 05/21/19 05/21/19 05/21/19 18:44 18:45 20:03 Glucose 370 H* POC Glucose 248 H POC Glucose (other) 394 H* 05/21/19 05/21/19 05/22/19 21:30 21:43 00:32 Glucose 176 H POC Glucose 175 H 175 H POC Glucose (other) 05/22/19 05/22/19 05/22/19 04:03 05:34 05:36 Glucose 286 H POC Glucose 305 H* 329 H* POC Glucose (other) 05/22/19 05/22/19 05/22/19 06:41 07:22 08:04 Glucose 229 H POC Glucose 279 H 271 H POC Glucose (other) 05/22/19 05/22/19 05/22/19 09:26 10:30 11:47 Glucose POC Glucose 206 H 201 H 171 H POC Glucose (other) 05/22/19 05/22/19 05/22/19 11:52 12:30 14:29 Glucose 163 H POC Glucose 174 H 153 H POC Glucose (other) Laboratory Data (last 24hrs): 05/21/19 05/21/19 05/21/19 18:45 18:45 21:30 Potassium 4.0 3.9 Carbon Dioxide 10 L 17 L Anion Gap 26.0 H 16.0 H Creatinine 1.63 H 1.36 Est Cr Clr Drug Dosing 46.0 55.1 Osmolality 319 H Beta-Hydroxybutyric Acd 93.95 H 05/22/19 05/22/19 05/22/19 04:03 08:04 11:52 Potassium 4.3 3.8 3.5 Carbon Dioxide 13 L 13 L 23 Anion Gap 21.0 H 17.0 H 8.0 Creatinine 1.12 1.23 1.27 Est Cr Clr Drug Dosing 91.2 83.1 80.5 Osmolality Beta-Hydroxybutyric Acd HbA1c: 11.4% on 04/28/19 - Recent Pertinent Medications Outpatient Anti-diabetic Regimen: * Lantus 25 units SQ AM + 30 units SQ PM * Aspart 1-10 units SQ TIDM * NON-COMPLIANCE with this regimen above; patient usually requires ~ 60 units of insulin per day total daily dose- split 50% basal : 50% prandial The patient is currently receiving: * IV insulin infusion per DKA protocol * Goal range = 150-250mg/dl * Rate constant at 5.4 units/hr - Assessment & Plan Assessment & Plan: ASSESSMENT: * 34yo T1DM male known to pharmacy from previous admissions. * Pt with poor outpatient control secondary to frequent missed insulin dosing * Pt admitted with moderate DKA based on admission labs * BSG improved with fluids and one time IV bolus of insulin therefore infusion was not started on admission. * However, DKA is not related to BSG --> it is an insulin deficiency. IV insulin infusion re-ordered this morning based on labs (bicarb low, AG elevated, BSG elevated) * Pt given Lantus 30 units SQ x 1 dose this morning at the time that the infusion was started. This dose has worked well in previous admissions. * IV insulin infusion continued for 8+ hrs which is c/w average DKA resolution time of 6-14 hrs. * 1200 PRP all WNL. IV insulin infusion running constantly at 5.4 units/hr x 4 hrs. Started transition process from IV to SQ basal bolus * Discussed fluids with provider --> initially this morning changed from LR @ 250ml/hr to D51/2NS+20KCl to maintain the IV insulin infusion and prevent hypoglycemia. Now, diet is being advanced and drip transitioning off. Change to LR @ 100 ml/hr. Patient received 6+ liters of fluid over the last 24hrs. Typical fluid losses in DKA is = 3 to 6 liters PLAN FOR INPATIENT GLYCEMIC CONTROL: * Re-started IV insulin infusion per DKA protocol this morning at 0830 AM * Goal Range 150 - 250 mg/dl * Pt met criteria to transition off per 1200 PRP and now that diet is advancing. * Transition off of IV inulin infusion. * Lantus 30 units SQ given this morning at the time the drip was initiated. * CHange fluids from D51/2NS+20Kcl to LR @ 100ml/hr * Diet advanced from NPO to clear liquids (RN may advance to T1DM diet if liquids are tolerated) * RN may stop IV insulin infusion when both of the following criteria are met: 1. BSG < 180 mg/dl x 1 AND IV insulin infusion rate is 1 unit/hr or below. * Additional Lantus 10 units SQ will be given at HS if BSG > 180 * Bolus insulin * NovoLog per scale ACHS or Q6hrs while NPO * Goal Range: Low 120 mg/dL - High 150 mg/dL {slightly higher goal range based on elevated A1c} * Correction Factor: 30 mg/dL/unit * Nutritional / Prandial insulin per carb ratio of 1 unit per 10 grams CHO consumed * Please note that the plan above was derived based on current level of insulin resistance and hospital stress. These recommendations are appropriate for inpatient admission only. Plan of care upon discharge will need to be reassessed to avoid potential outpatient hypo/hyperglycemia. Thank you.
[2019-05-22] MEDS: LACTATED RINGER'S 1,000 ML IV SCH (16:06)
[2019-05-22] MEDS: INSULIN ASPART 100 UNITS/ML 3 ML PEN SC SCH ×2 (17:43→21:16)
[2019-05-22] MEDS: DC IV INSULIN INFUSION 1 EA DEVI SCH ×2 (17:43→18:56)
[2019-05-22] MEDS ORDERED: CIPRO 0.3%/DEXAMETHASONE 0.1% OTIC SUSP 7.5ML OT SCH (21:00)
[2019-05-22] MEDS ORDERED: INSULIN GLARGINE SOLOSTAR 100 UNITS/ML 3 ML PEN SC ONE ×2 (21:00)
[2019-05-22] MEDS: CIPRO 0.3%/DEXAMETHASONE 0.1% OTIC SUSP 7.5ML OTL SCH (21:16)
[2019-05-22] MEDS: NICOTINE 14 MG/24 HR PATCH TD SCH (21:23)
--- NOTE | 2019-05-22 22:36 | Hospitalist Progress Note ---
Date of Service May 22, 2019 Subjective Patient complaining of GERD symptoms despite a.m. PPI dose for esophagitis. AP Intractable GERD Esophagitis on CT PPI twice daily dosing for now. Consult GI if symptoms still uncontrolled. Results & Data Vital Signs (Past 12 Hours) Vital Signs Temp Pulse Resp BP BP Pulse Ox 05/22/19 19:59 36.5 C 81 18 117/72 99 05/22/19 15:50 36.8 C 91 H 19 113/71 99 05/22/19 11:24 36.8 C 97 H 18 118/74 98
[2019-05-22] MEDS ORDERED: ACETAMINOPHEN 325 MG TAB PO PRN (23:10)
[2019-05-22] MEDS ORDERED: TRAMADOL HCL 50 MG TABLET PO PRN (23:10)
[2019-05-22] MEDS: PANTOprazole 40 MG TAB PO SCH (23:52)
[2019-05-23] MEDS: INSULIN ASPART 100 UNITS/ML 3 ML PEN SC SCH ×6 (00:37→20:52)
[2019-05-23] MEDS: LACTATED RINGER'S 1,000 ML IV SCH ×3 (01:31→20:06)
[2019-05-23 04:15] LABS: Hematocrit (blood only) 36.5 % (42-52); Hemoglobin 13.7 g/dL (14.0-18.0); Mean Corpuscular Hemoglobin 32.9 pg (25-34); Mean Corpuscular Hgb Conc 37.5 g/dL (32-36); Mean Corpuscular Volume 87.7 fL (80-100); Mean Platelet Volume 8.6 fL (7.4-10.4); Platelet Count 145 K/uL (130-400); RDW Coefficient of Variation 12.8 % (11.5-14.5); RDW Standard Deviation 41.3 fL (36.4-46.3); Red Blood Count 4.16 M/uL (4.7-6.1); White Blood Count 5.07 K/uL (4.8-10.8)
[2019-05-23 04:35] LABS: Calcium 7.9 mg/dl (8.5-10.1); Creatinine Clr Calc Pharmacy 111.1 ml/min; Est GFR (African American) 127.1; Est GFR (Non-African American) 109.7; Phosphorus 2.7 mg/dl (2.5-4.9); Potassium 3.2 mmol/L (3.5-5.1)
[2019-05-23] MEDS ORDERED: POTASSIUM CHLORIDE 20 MEQ TABCR PO STA (08:44)
[2019-05-23] MEDS ORDERED: INSULIN GLARGINE SOLOSTAR 100 UNITS/ML 3 ML PEN SC ONE (09:00)
[2019-05-23] MEDS: CIPRO 0.3%/DEXAMETHASONE 0.1% OTIC SUSP 7.5ML OTL SCH ×2 (09:06→20:05)
[2019-05-23] MEDS: PANTOprazole 40 MG TAB PO SCH ×2 (09:07→20:06)
--- NOTE | 2019-05-23 09:11 | Pharmacy Report ---
Pharmacy Glycemic Short Note 2 - Date of Service May 23, 2019 - Glycemic Short BSG Results (Last 24 hours): 05/22/19 05/22/19 05/22/19 09:26 10:30 11:47 Glucose POC Glucose 206 H 201 H 171 H 05/22/19 05/22/19 05/22/19 11:52 12:30 14:29 Glucose 163 H POC Glucose 174 H 153 H 05/22/19 05/22/19 05/22/19 15:56 19:34 21:02 Glucose POC Glucose 113 H 137 H 138 H 05/22/19 05/23/19 05/23/19 23:49 03:50 03:58 Glucose 106 H POC Glucose 118 H 105 H 05/23/19 08:22 Glucose POC Glucose 178 H OUTPATIENT ANTIDIABETIC REGIMEN: * Lantus 25 units SQ AM + 30 units SQ PM * Aspart 1-10 units SQ TIDM * NON-COMPLIANCE with this regimen above; patient usually requires ~ 60 units of insulin per day total daily dose- split 50% basal : 50% prandial ASSESSMENT: See 05/22 note for background information 05/23 * Patient received 30 units of basal insulin plus insulin drip yesterday, now transitioned off insulin drip * Fasting BSG this AM 178 mg/dL - BSG taken later, per nurse patient had started eating when taken. Therefore will continue with Lantus 30 units daily * BSGs yesterday w/in range 113-138-118 mg/dL - however now trending up at lunch - will tighten CF/CR PLAN FOR INPATIENT GLYCEMIC CONTROL: * Transition off of IV inulin infusion yesterday * Continue with Lantus 30 units daily * Bolus insulin - tighten * NovoLog per scale ACHS or Q6hrs while NPO * Goal Range: Low 120 mg/dL - High 150 mg/dL {slightly higher goal range based on elevated A1c} * Correction Factor: 25 mg/dL/unit * Nutritional / Prandial insulin per carb ratio of 1 unit per 8 grams CHO consumed
[2019-05-23] MEDS: AMOXICILLIN/CLAVULANATE 875 MG TAB PO SCH ×2 (11:59→16:11)
--- NOTE | 2019-05-23 16:20 | Hospitalist Progress Note ---
Date of Service May 23, 2019 Assessment & Plan (1) DKA (diabetic ketoacidoses): repeated admissions for DKA recent admission 3 weeks back pt is a type 1 diabetic , with poorly compliant with insulin poorly controlled DM Hb A1c was 11.4 on 04/2019 ongoing marijuana use admitted with DKA -elevated anion gap metabolic acidosis /hyperglycemia /elevated beta hydroxy butyrate DKA resolved with Iv insulin infusion , Iv fluid off insulin drip now transitioned to SC insulin basal Lantus /Novolog pt is counselled repeatedly importance of better glycemia control PNEUMOMEDIASTINUM : seen in last admission as well due to persisted retching , nausea /vomiting -sofie najera tear in a setting of DKA /marijuana use no pluritic chest pain , no hypoxia stable appreciate input from ct surgery , no intervention indicated pt is counselled repeatedly to avoid Marijuana ACUTE RENAL FAILURE due to vol depletion , DKA resolved after aggressive Iv hydration follow PRP avoid NSAId's contrast studies HYPOKALEMIA : possible due to rapid intracellular shift while on IV insulin no evidence of GI loss -no vomiting or diarrhea replaced with PO K dur follow PRP FULL CODE DISPOSITION ; expected to be discharged home when medically stable Subjective no complain of nausea /vomiting BSG improved , off from insulin gtt no cough , no chest pain or AVERY has been afebrile , offers no complain of pain or discomfort voiced concern for unable to have medical access /can not afford insulin - leading him recurrent DKA Review of Systems Review of Systems: All systems reviewed & are unremarkable except as noted in HPI & below Physical Exam Physical Exam: GENERAL: No sign of distress, HEENT: Sclera nonicteric, pink-purple bilateral equal reactive to light extraocular muscle intact Normal oral mucosa, neck: No JVD, no thyromegaly, trachea midline Lungs: Clear to auscultate, no wheeze or rales Cardiovascular: Regular S1 and S2, no murmur or gallop, no JVD, no lower extremity edema Abdomen: Soft, nontender, bowel sounds active, no hepatosplenomegaly Extremities: No rash or deformity, normal joint, Neuro: No focal neurological deficit, no dysarthria, no facial droop Psych: Alert awake oriented x3: Euthymic Skin: No rash LYMPH NODES: No cervical lymphadenopathy Results & Data Vital Signs (Past 12 Hours) Vital Signs Temp Pulse Pulse Pulse Resp BP Pulse Ox 09/18/19 15:40 84 05/23/19 15:19 36.8 C 94 H 12 131/87 96 05/23/19 15:08 36.6 C 90 113/68 95 05/23/19 11:35 36.4 C L 75 12 124/81 99 05/23/19 07:16 36.8 C 86 12 131/82 97 05/23/19 04:31 36.6 C 70 18 122/61 96 (1) DKA (diabetic ketoacidoses) Diabetes mellitus complication detail: without coma Diabetes mellitus type: type 1 Qualified Code(s): E10.10 - Type 1 diabetes mellitus with ketoacidosis without coma
--- NOTE | 2019-05-23 18:09 | Progress Note ---
DATE: 05/23/2019 Mr. Gonzalez was seen today on 05/23/2019. White count today was 5070. He has no abdominal pain. 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 I would repeat an x-ray in the next day or two, but otherwise he looks and sounds good. I believe the problem is with his diabetic ketoacidosis and his vomiting. I am not concerned about esophageal or pharyngeal perforation.
[2019-05-23] MEDS: NICOTINE 14 MG/24 HR PATCH TD SCH (20:06)
[2019-05-24 07:07] LABS: BUN Creatinine Ratio 5.6 (10-20); Creatinine Clr Calc Pharmacy 141.2 ml/min; Est GFR (Non-African American) 118.2; Potassium 3.2 mmol/L (3.5-5.1)
[2019-05-24] MEDS: AMOXICILLIN/CLAVULANATE 875 MG TAB PO SCH ×2 (07:37→16:49)
[2019-05-24] MEDS: CIPRO 0.3%/DEXAMETHASONE 0.1% OTIC SUSP 7.5ML OTL SCH ×2 (07:37→20:08)
[2019-05-24] MEDS: PANTOprazole 40 MG TAB PO SCH ×2 (07:37→20:08)
[2019-05-24] MEDS ORDERED: POTASSIUM CHLORIDE 20 MEQ TABCR PO STA (08:09)
[2019-05-24] MEDS: INSULIN ASPART 100 UNITS/ML 3 ML PEN SC SCH ×4 (08:41→20:26)
[2019-05-24] MEDS ORDERED: INSULIN GLARGINE SOLOSTAR 100 UNITS/ML 3 ML PEN SC SCH (09:00)
[2019-05-24] MEDS: LACTATED RINGER'S 1,000 ML IV SCH (10:42)
--- NOTE | 2019-05-24 15:04 | Pharmacy Report ---
Pharmacy Glycemic Short Note 2 - Date of Service May 24, 2019 - Glycemic Short BSG Results (Last 24 hours): 05/23/19 05/23/19 05/23/19 16:14 20:15 22:34 Glucose POC Glucose 137 H 75 172 H 05/24/19 05/24/19 05/24/19 00:53 06:04 07:47 Glucose 186 H POC Glucose 190 H 215 H 05/24/19 11:54 Glucose POC Glucose 167 H OUTPATIENT ANTIDIABETIC REGIMEN: * Lantus 25 units SQ AM + 30 units SQ PM * Aspart 1-10 units SQ TIDM * NON-COMPLIANCE with this regimen above; patient usually requires ~ 60 units of insulin per day total daily dose- split 50% basal : 50% prandial ASSESSMENT: * 34yo T1DM male known to pharmacy from previous admissions. * Pt with poor outpatient control secondary to frequent missed insulin dosing and insurance/cost issues. Pt met with diabetes educators and has agreed to use [employer] premixed 70/30 insulin--> will convert current inpatient regimen to outpatient regimen with 70/30 insulin * Pt is currently receiving a total daily dose of 50 units of insulin per day with near-adequate control * AM fasting BSG is slightly elevated indicating more basal insulin is warranted * Post-prandial BSGs drop throughout the day indicating too much CHO coverage on board. Will loosen CR * With these adjustments above --> will change to total daily dose of ~ 55units/day. Premixed 70/30 insulin will work well since the current split of his regimen is ~ 70%/30% basal/prandial PLAN FOR INPATIENT GLYCEMIC CONTROL: * Basal insulin * Lantus 35 units SQ daily - last dose will be today; then will switch to premixed insulin tomorrow morning * Bolus insulin - loosen CR today and then dc CR tomorrow when premixed insulin started * NovoLog per scale ACHS or Q6hrs while NPO * Goal Range: Low 120 mg/dL - High 150 mg/dL {slightly higher goal range based on elevated A1c} * Correction Factor: 25 mg/dL/unit * Nutritional / Prandial insulin per carb ratio of 1 unit per 10 grams CHO consumed * Starting 05/25/19: * Novolin 70/30 premixed insulin 35 units SQ daily in AM with breakfast + 20 units SQ daily in PM with dinner * patient to continue this at discharge.
--- NOTE | 2019-05-24 17:21 | Hospitalist Progress Note ---
Date of Service May 24, 2019 Assessment & Plan (1) DKA (diabetic ketoacidoses): Has resolved, blood sugar remains reasonably controlled with subcu insulin Appreciate input from pharmacy for glycemic management Patient has very poorly compliance of outpatient insulin dosing, frequent missed dose at a could not afford /cost issues and her lack of insurance Will be able to use [employer] brand ReliOn 70/30 insulin(cost $25 per vial) Patient willing to utilize [employer] brand as it will be cost effective for him At present patient is on basal Lantus 35 units, NovoLog sliding scale Patient will be switched to Novolin 70/30 premixed insulin 35 units subcu daily in the morning before breakfast and 20 units subcu daily in the evening before dinner Prescription for insulin will be sent to [facility] pharmacy per patient's preference Multiple readmission with poorly controlled diabetes hyperglycemia DKA recent admission 3 weeks back pt is a type 1 diabetic , compliant with diabetic diet, insulin poorly controlled DM Hb A1c was 11.4 on 04/2019 ongoing marijuana use admitted on 05/21/2019 with with DKA -elevated anion gap (16)metabolic acidosis /hyperglycemia /elevated beta hydroxybutyric acid 93.9 DKA resolved with Iv insulin infusion , Iv fluid -leading to resolution of anion gap, metabolic acidosis, hyperglycemia off insulin drip now transitioned to SC insulin basal Lantus /Novolog pt is counselled repeatedly importance of better glycemia control Patient input from sort operations supervisor PNEUMOMEDIASTINUM : seen in last admission as well due to possible persisted retching , nausea /vomiting -Doris-Piedra tear in a setting of DKA /marijuana use Patient remains completely asymptomatic, no hypoxia no shortness of breath or cough appreciate input from cardiothoracic surgery , no intervention indicated pt is counselled repeatedly to avoid Marijuana ACUTE RENAL FAILURE due to vol depletion , DKA resolved after aggressive Iv hydration follow PRP avoid NSAId's contrast studies HYPOKALEMIA : possible due to rapid intracellular shift while on IV insulin no evidence of GI loss -no vomiting or diarrhea replaced with PO K dur follow PRP FULL CODE DISPOSITION ; Possible discharge home tomorrow, pt will need ongoing medical care for type 1 diabetes, Has not been able to see any family physician for lack of insurance information given to [facility] establish care Patient should be able to obtain free insulin from [facility] once established with Subjective pt says he feels " fantastic " no nausea , vomiting no abdominal pain appetite and energy back to baseline willing to switch to insulin 70/30 [employer] Reli On brand as he will be able to afford it Physical Exam Physical Exam: GENERAL: No sign of distress, HEENT: Sclera nonicteric, pink-purple bilateral equal reactive to light extraocular muscle intact Normal oral mucosa, neck: No JVD, no thyromegaly, trachea midline Lungs: Clear to auscultate, no wheeze or rales Cardiovascular: Regular S1 and S2, no murmur or gallop, no JVD, no lower extremity edema Abdomen: Soft, nontender, bowel sounds active, no hepatosplenomegaly Extremities: No rash or deformity, normal joint, Neuro: No focal neurological deficit, no dysarthria, no facial droop Psych: Alert awake oriented x3: Euthymic Skin: No rash LYMPH NODES: No cervical lymphadenopathy Results & Data Vital Signs (Past 12 Hours) Vital Signs Temp Pulse Pulse Pulse Resp BP BP 05/24/19 16:24 36.7 C 75 16 121/84 05/24/19 15:42 69 05/24/19 12:08 36.7 C 68 18 131/87 05/24/19 07:51 36.6 C 59 L 17 133/85 05/24/19 05:40 36.4 C L 64 16 125/79 Pulse Ox 05/24/19 16:24 99 05/24/19 15:42 05/24/19 12:08 99 05/24/19 07:51 99 05/24/19 05:40 99 (1) DKA (diabetic ketoacidoses) Diabetes mellitus complication detail: without coma Diabetes mellitus type: type 1 Qualified Code(s): E10.10 - Type 1 diabetes mellitus with ketoacidosis without coma
[2019-05-24] MEDS: NICOTINE 14 MG/24 HR PATCH TD SCH (20:08)
[2019-05-25 07:15] LABS: BUN Creatinine Ratio 10.8 (10-20); Calcium 8.5 mg/dl (8.5-10.1); Creatinine Clr Calc Pharmacy 139.4 ml/min; Est GFR (African American) 136.3; Est GFR (Non-African American) 117.6; Potassium 3.6 mmol/L (3.5-5.1)
[2019-05-25] MEDS ORDERED: INSULIN HUMAN 70% NPH/30% REGULAR SC SCH ×2 (07:30→16:30)
[2019-05-25] MEDS: PANTOprazole 40 MG TAB PO SCH (08:45)
[2019-05-25] MEDS: AMOXICILLIN/CLAVULANATE 875 MG TAB PO SCH (08:45)
[2019-05-25] MEDS: CIPRO 0.3%/DEXAMETHASONE 0.1% OTIC SUSP 7.5ML OTL SCH (08:45)
[2019-05-25] MEDS: INSULIN ASPART 100 UNITS/ML 3 ML PEN SC SCH ×2 (08:48→12:54)
--- NOTE | 2019-05-25 09:31 | XRay Report ---
XR chest 2V routine CLINICAL HISTORY: pneumomediastinum COMPARISON STUDY: Chest radiograph and chest CT May 21, 2019. FINDINGS: Lung volumes are normal. Lungs are clear. There is no pneumothorax or pleural effusion. Car diac size is normal. Mediastinal contours are normal. There is no evidence for pulmonary edema. No pn eumomediastinum is evident by radiography. IMPRESSION: No acute cardiopulmonary findings. No pneumomediastinum identified. Electronically signed by: Luiz Davey M.D. 05/25/2019 9:29 AM
--- NOTE | 2019-05-25 16:06 | Discharge Summary ---
Date of Service May 25, 2019 Admission HPI Per Admitting Provider History obtained from patient, family, and records. Medical history significant for DM 1,, anxiety/mood disorder, history pneumomediastinum as per records ongoing tobacco abuse. Recent confinement 3 weeks ago for DKA, possible Doris-Piedra tear from emesis. CAT scan showed moderate pneumomediastinum. Patient evaluated by CT surgery. No surgical intervention. Last night patient went to bed feeling down because of personal stressors, denies suicidality. Woke up in the morning feeling weak, was not able to take insulin, patient suspected blood sugar to be high. Patient later noted pleuritic left-sided chest pain/upper abdominal pain with shortness of breath, nausea, emesis symptoms. No hematemesis, no melena. No cough symptoms. Medical History as above Surgical History : Dental surgery Family History : Breast cancer, psychiatric illness Personal/Social history : Half pack daily, occasional EtOH intake, prior work at the [employer] Principal Diagnosis With ketoacidosis, poorly controlled type 1 diabetes, acute renal failure, metabolic acidosis Discharge Data Allergies Allergy/AdvReac Type Severity Reaction Status Date / Time methyl salicylate Allergy Unknown HIVES, Unverified 05/21/19 19:54 "FEELS LIKE FIRE ON MY SKIN" codeine AdvReac Intermediate BECOMES Verified 05/21/19 19:54 VERY AGGRESSIVE Consultations 05/21/19 19:25 ED Decision to Admit Stat 05/21/19 23:58 Consult Thoracic Surgery Routine 05/22/19 12:25 Consult Case Management - Discharge Planning Routine Ordered Studies 05/21/19 21:00 CT abd pelvis IV con only Urgent CT angio chest PE protocol Stat Hospital Course (1) DKA (diabetic ketoacidoses): Has resolved, blood sugar remains reasonably controlled with subcu insulin Appreciate input from pharmacy for glycemic management Patient has very poorly compliance of outpatient insulin dosing, frequent missed dose at a could not afford /cost issues and her lack of insurance Will be able to use [employer] brand ReliOn 70/30 insulin(cost $25 per vial) Patient willing to utilize [employer] brand as it will be cost effective for him Patient is discharged on Novolin 70/30 premixed insulin 35 units subcu daily in the morning before breakfast and 20 units subcu daily in the evening before dinner Prescription for insulin will be sent to [facility] pharmacy Sabrina Morrow per patient's preference Multiple readmission with poorly controlled diabetes hyperglycemia DKA recent admission 3 weeks back pt is a type 1 diabetic , compliant with diabetic diet, insulin poorly controlled DM Hb A1c was 11.4 on 04/2019 ongoing marijuana use admitted on 05/21/2019 with with DKA -elevated anion gap (16)metabolic acidosis /hyperglycemia /elevated beta hydroxybutyric acid 93.9 DKA resolved with Iv insulin infusion , Iv fluid -leading to resolution of anion gap, metabolic acidosis, hyperglycemia transitioned to SC insulin basal Lantus /Novolog pt is counselled repeatedly importance of better glycemia control Patient input from peer educator PNEUMOMEDIASTINUM : seen in last admission as well due to possible persisted retching , nausea /vomiting -Doris-Piedra tear in a setting of DKA /marijuana use Patient remains completely asymptomatic, no hypoxia no shortness of breath or cough appreciate input from cardiothoracic surgery , no intervention indicated pt is counselled repeatedly to avoid Marijuana ACUTE RENAL FAILURE due to vol depletion , DKA resolved after aggressive Iv hydration follow PRP avoid NSAId's contrast studies HYPOKALEMIA : possible due to rapid intracellular shift while on IV insulin no evidence of GI loss -no vomiting or diarrhea replaced with PO K dur FULL CODE DISPOSITION ; Possible discharge home tomorrow, pt will need ongoing medical care for type 1 diabetes, Has not been able to see any family physician for lack of insurance information given to [facility] establish care Patient should be able to obtain free insulin from [facility] once established with Total Time Total Time Spent Total Time Spent (In Minutes): Oximetry 45 minutes Total Time Includes: Examination of the Patient, Discharge Planning and Medication Reconciliation Discharge Plan Discharge Items Patient Disposition: Home - Self-Care Reason For Visit: DKA Discharge Diagnosis: With ketoacidosis, poorly controlled type 1 diabetes, acute renal failure, metabolic acidosis Activity: Resume your previous activity Non-emergency contact: Primary Care Provider Call non-emergency contact if: you have any medication questions Follow-up/Referrals: Kylah Orellana DO [Primary Care Provider] - Diet: Carb Count or DM1 Addtl Attending Provider Instructions: Please establish care at [facility] for ongoing medical needs/diabetes management Address: [address] [place] [address] [address], [place] [address] Phone number # Insulin: [employer] brand ReliON 70/30 : Take 35 units morning before breakfast and 20 units in the evening before dinner It is very important for you to quit smoking tobacco and marijuana, stop them can cause severe change damage to your kidneys, heart vessels causing renal failure, premature heart attack, and stroke Pending Studies at Discharge: No Stand-Alone Forms: My Dina Chappell [facility], Work/School Release (Inpt) Medications and DC Order Prescriptions: New amoxicillin-pot clavulanate 875-125 mg Tablet 1 tab PO BIDM 3 Days Qty: 6 RF: 0 Novolin 70/30 U-100 Insulin 100 unit/mL (70-30) suspension 35 units SQ QAM Qty: 10 RF: 4 Novolin 70/30 U-100 Insulin 100 unit/mL (70-30) suspension 20 units SQ DAILY Qty: 10 RF: 0 Discontinued insulin aspart U-100 100 unit/mL insulin pen 1 - 10 unit subcut TIDM RF: 0 insulin glargine 100 unit/mL (3 mL) insulin pen 25 unit subcut QAM RF: 0 Basaglar KwikPen U-100 Insulin 100 unit/mL (3 mL) insulin pen 30 unit subcut QPM RF: 0 Discharge Orders: Discharge Order (Routine); Ordered 05/25/19 Ordered By: Mary Mason/Other Patient Handouts: Diabetic Retinopathy Risk Factors, Diabetes Heart Disease, Diabetes Halfway Complications, Diabetes Resources, Diabetes Type 1 Coping, Diabetes Type 1 Get Active Admission Data Admit Date/Time: 05/21/19 21:08 Attending Provider: Mary Abdi Admit Provider: Erick Villagran Primary Care Provider: Kylah Orellana Other Providers: Mary Abdi ; Erick Hua Other Interventions: Discharge Summary Assessment (RN) Last Done: 05/25/19 13:26 DC Date/Time DO NOT enter until pt leaves facility: 05/25/19 14:28
--- NOTE | 2019-05-30 12:10 | Coding Query ---
CODING QUERY To promote full compliance with coding requirements relating to patient care, provider participation is requested in all cases of information coder uncertainty. Please assist us with the question(s) below: Coding Question(s): There is documentation under the Pneumomediastinum diagnosis on Discharge Summary of due to possible retching, nausea/vomiting - Doris Piedra tear in setting of DKA/marijuana use. The thoracic surgery Progress Note on 05/23 documents, "I am not concerned about esophageal or pharyngeal perforation.". Please clarify below, in your clinical opinion, regarding the possible Doris Piedra tear. ( x) Possible Doris Piedra tear (Doris-Piedra Syndrome/Gastro-esophageal laceration-hemorrhage syndrome) ( ) No Doris Piedra tear (Doris-Piedra Syndrome/Gastro-esophageal laceration- hemorrhage syndrome) - this is ruled-out ( ) Other: Please Specify Physician's Response(s): Thank you Anusha Hatfield Principal Diagnosis: "that condition established after study, to be chiefly responsible for occasioning the admission of the patient to the hospital for care." Co-Existing Principal Diagnosis: "when two or more diagnoses equally meet the criteria for principal diagnosis as determined by the circumstances of admission, diagnostic work up, and/or therapy provided, and the Alphabetic Index, Tabular List, or another coding guideline does not provide sequencing direction, any one of the diagnoses may be sequenced first." "When the physician has documented what appears to be a current diagnosis in the body of the record, but has not included the diagnosis in the final diagnostic statement, the physician should be asked whether the diagnosis should be added." (Source Coding [facility] 2 QTR90. p3-4) RENEE
== END 2019-05-25 14:28 | disposition home or self-care (01) | DRG 637 ==
LOC: ED 18:14 → 2N 21:08 → SUATTDRO 21:08 → 2N 22:30

== ENCOUNTER 2021-01-31 15:45 | Inpatient (IN) ==
[2021-01-31] MEDS ORDERED: ONDANSETRON INJ 2 MG/ML 2 ML VIAL ONE (16:00)
[2021-01-31] MEDS ORDERED: SODIUM CHLORIDE 0.9% 1000ML 2,000 ML IV ONE (16:03)
[2021-01-31 16:28] LABS: Basophils # (auto) 0.04 K/uL (0-0.2); Basophils % (auto) 0.3 %; Eosinophils # (auto) 0.07 K/uL (0-0.5); Eosinophils % (auto) 0.6 %; Hematocrit (blood only) 51.9 % (42-52); Hemoglobin 19.6 g/dL (14.0-18.0); Immature Granulocytes # (auto) 0.02 K/uL (0.00-0.02); Immature Granulocytes % (auto) 0.2 %; Lymphocytes % (auto) 7.6 %; Mean Corpuscular Hemoglobin 33.8 pg (25-34); Mean Corpuscular Hgb Conc 37.8 g/dL (32-36); Mean Corpuscular Volume 89.5 fL (80-100); Mean Platelet Volume 10.2 fL (7.4-10.4); Monocytes # (auto) 0.63 K/uL (0.11-0.59); Monocytes % (auto) 5.3 %; Neutrophils # (auto) 10.25 K/uL (1.4-6.5); Platelet Count 271 K/uL (130-400); RDW Coefficient of Variation 12.2 % (11.5-14.5); RDW Standard Deviation 40.2 fL (36.4-46.3); White Blood Count 11.91 K/uL (4.8-10.8)
[2021-01-31 16:33] LABS: iSTAT Creatinine 0.9 mg/dl (0.6-1.3); iSTAT Hemoglobin 19.4 g/dl (14.0-18.0); iSTAT Ionized Calcium 1.17 mmol/l (1.12-1.32); iSTAT Potassium 4.4 mmol/L (3.3-5.0)
[2021-01-31 16:35] LABS: Appearance Urine Clear (Clear); Bilirubin Urine Negative (Negative); Blood Urine Negative (Negative); Color Urine Yellow; Glucose Urine UA 3+ (Negative); Ketones Urine 4+ (Negative); Leukocyte Esterase Urine Negative (Negative); Nitrite Urine Negative (Negative); Protein Urine Negative (Negative); Specific Gravity Urine 1.034 (1.000-1.030); Urobilinogen Urine Negative (Negative)
--- NOTE | 2021-01-31 16:46 | XRay Report ---
XR chest 1V portable CLINICAL HISTORY: dka COMPARISON STUDY: Chest radiograph July 08, 2020. FINDINGS: Lung volumes are normal. Lungs are clear. There is no pneumothorax or pleural effusion. Car diac size is normal. Mediastinal contours are normal. There is pulmonary vascular congestion without overt pulmonary edema. IMPRESSION: Pulmonary vascular congestion without overt pulmonary edema. ACT 112: Negative or not required by law. Electronically signed by: Luiz Davey M.D. 01/31/2021 4:45 PM
[2021-01-31 16:50] LABS: Base Excess VBG -4.3 mEq/L; HCO3 VBG 22 mmol/L; PCO2 VBG 44 mmHg (38-50); PO2 VBG 20 mmHg; pH VBG 7.32 (7.36-7.41)
[2021-01-31 16:52] LABS: Oxygen Saturation VBG < 60.0 %
[2021-01-31 17:02] LABS: Alanine Aminotransferase 47 U/L (12-78); Albumin Globulin Ratio 1.2 (0.9-2); Albumin Level 4.6 gm/dl (3.4-5.0); Alkaline Phosphatase 148 U/L (45-117); BUN Creatinine Ratio 13.2 (10-20); Bilirubin,Total 1.3 mg/dl (0.2-1); Blood Urea Nitrogen 21 mg/dl (7-18); Calcium 9.5 mg/dl (8.5-10.1); Carbon Dioxide 21 mmol/L (21-32); Chloride 93 mmol/L (98-107); Creatinine Clr Calc Pharmacy 72.2 ml/min; Est GFR (African American) 67.2 ml/min; Glucose 504 mg/dl (70-99); Lipase 76 U/L (73-393); Phosphorus 3.8 mg/dl (2.5-4.9); Total Protein 8.6 gm/dl (6.4-8.2); Troponin I < 0.015 ng/ml (0-0.045)
[2021-01-31] MEDS ORDERED: ED DKA INSULIN DRIP ONE (17:10)
[2021-01-31] MEDS ORDERED: DEXTROSE 50% 50 ML SYRINGE IV PRN (17:10)
[2021-01-31] MEDS ORDERED: CARBOHYDRATES FOR HYPOGLYCEMIA PO PRN (17:10)
[2021-01-31] MEDS ORDERED: STAT IV Infusion **Titration per Protocol STA (17:10)
[2021-01-31] MEDS ORDERED: GLUCAGON FOR INJ 1 MG VIAL SQ PRN (17:10)
[2021-01-31] MEDS ORDERED: GLUCOSE 40% GEL 15 GM TUBE PO PRN (17:10)
[2021-01-31] MEDS ORDERED: DKA GOAL RANGE 150-250 mg/dl ONE ×2 (17:10→20:46)
[2021-01-31] MEDS ORDERED: GLUCOSE 10 TABS/TUBE PO PRN (17:10)
[2021-01-31] MEDS ORDERED: NovoLIN-R BOLUS FROM BAG IV ONE (17:15)
[2021-01-31] MEDS ORDERED: INSULIN REGULAR 250 UNITS in SODIUM CHLORIDE 0.9% 247.5 ML IV SCH (17:15)
[2021-01-31 17:26] LABS: Aspartate Aminotransferase 20 U/L (15-37); Magnesium 2.5 mg/dl (1.8-2.4); Potassium 4.6 mmol/L (3.5-5.1); Sodium 131 mmol/L (136-145)
[2021-01-31 17:50] LABS: Beta-Hydroxybutyrate 51.65 mg/dl (0.2-2.81)
--- NOTE | 2021-01-31 18:44 | History & Physical Report ---
Date of Service January 31, 2021 Assessment & Plan (1) DKA (diabetic ketoacidoses): (2) Type 1 diabetes mellitus: Pt is 35 y/o M with PMH DM I with insulin pump, depression presented to ER with complaint of nausea and vomiting and insulin pump falling off last night. edema, rashes, urinary symptoms. In ER patient afebrile, P: 115, BP: 163/99, R: 20, O2 sat: 99 on RA. Glucose 504, beta hydroxybutyric acid: 51, K: 4.6, ma.5, CO2: 21, anion gap: 18, VBG pH: 7.3 In ER was given to L NSS and insulin drip was started with repeat BSG of 350 IVF, Insulin Drip pharmacy glycemic consult Repeat BMP, phosphorus and magnesium labs NPO until acidosis resolved Pt will need to keep outpatient glycemic pharmacy follow up for insulin pump management (3) Elevated lactic acid level: lactate 5, UA unremarkable for infection, CXR: No infiltrate Probable secondary to DKA, dehydration Repeat lactate 3.2 IVF Trend lactic acid Obtain CT abdomen/pelvis secondary to diarrhea (4) JESSIE (acute kidney injury): Cr: 1.5. GFR: 58. Baseline Cr: 1.0 with GFR>60 Probable secondary to dehydration IV fluids Monitor renal functions, avoid nephrotoxic agents when possible (5) Diarrhea: Reports 10 or more episodes of loose stools for the past year Obtain C. difficile, stool culture, ova parasites, Giardia Start probiotic CT abdomen pelvis pending May need GI consult or outpatient GI follow-up DVT Prophylaxis -SCDs Full Code Follows with Dr Orellana for routine care Pt was seen and care coordinated with Dr Luther. See addendum History of Present Illness Chief Complaint: N/V, insulin pump fell off Primary Care Provider: Kylah Orellana, DO Pt is 35 y/o M with PMH DM I with insulin pump, depression presented to ER with complaint of nausea and vomiting and insulin pump falling off. Patient reports his been having trouble with his insulin pump and has been working outpatient and actually received new one in the mail however has not had it set up yet. Reports last week had episode of his insulin pump being ripped off. States this morning he woke up and his insulin pump must of fallen off during the night. Today he has had nausea and multiple episodes of vomiting. Patient also reports 10 or more episodes of loose stools for the past year. Summer 2019 patient states was treated for C. difficile however he continues to still have 10 loose stools daily. He states that he did not follow back up with his GI provider. Patient denies abdominal pain. Denies any noted fevers. States today after he would vomit would feel chilled. Denies hematemesis, melena, hematochezia, ROBERTS, dizziness, vision changes, neck pain, CP, SOB, orthopnea, palpitations, cough, sore throat, choking, otalgia, rhinorrhea, abdominal pain, paresthesias, weakness, extremity edema, rashes, urinary symptoms. In ER patient found to have BSG 504, beta hydroxybutyric acid: 51, K: 4.6, ma.5, CO2: 21, anion gap: 18, VBG pH: 7.3, BUN: 21, Cr: 1.5, lactate 5, UA unremarkable for infection, CXR: No infiltrate. In ER was given to Anthony OVIEDO and insulin drip was started. Allergies Allergy/AdvReac Type Severity Reaction Status Date / Time methyl salicylate Allergy Unknown HIVES, Verified 01/31/21 17:27 "FEELS LIKE FIRE ON MY SKIN" codeine AdvReac Intermediate BECOMES Verified 01/31/21 17:27 VERY AGGRESSIVE Home Medications Medication Instructions Recorded Confirmed Type dicyclomine 10 mg PO Q6H PRN 04/14/20 01/31/21 History insulin aspart U-100 See Rx Instructions .ROUTE .COMPLEX 07/08/20 01/31/21 History tadalafil 5 mg PO QAM 01/31/21 01/31/21 History Past Med/Surg History Medical History Diabetes Disorder of male genital organs, unspecified DKA (diabetic ketoacidoses) Epigastric pain GERD (gastroesophageal reflux disease) Hx of psoriasis Hypertension Major depressive disorder, recurrent episode Rectal/anal hemorrhage Sebaceous cyst Suicidal ideation Tobacco abuse disorder Surgical History No pertinent past surgical history Family History Father Cardiovascular disease Diabetes Mother Diabetes Other No significant family history Social History Smoking Status: Current every day smoker Tobacco Type: Cigarettes Do You Dip or Chew Tobacco: No; Tobacco Cessation Education Requested by Patient: No Hx Alcohol Use: Yes Hx Substance Use: Yes Non-Prescribed Medications: Marijuana Preferred Language: Kinyarwanda Communication Ability: Effective Leave Specialist Required: No Beliefs That Will Affect Care: None marital status: Single Current Living Situation: Significant Other current occupational status: employed Other Information That Helps Us Care for You: No Feels Safe at Home: Yes Safety Concerns: Feels Safe At This Time Assistive Devices: None Assistive Devices Comment: insulin pump Review of Systems Review of Systems: All systems reviewed & are unremarkable except as noted in HPI & below Physical Exam Constitutional: WD/WN, vitals as above no acute distress Eyes: PERRL, conjunctivae normal, anicteric sclerae ENMT: external ear and nose normal, oropharynx normal Neck: trachea midline, no thyromegaly Respiratory: normal respiratory effort, lungs clear to auscultation Cardiovascular: RRR, no murmur, no edema Chest (Breasts): Chest: normal inspection of chest Gastrointestinal (Abdomen): Inspection/Auscultation: abdomen normal to inspection and normal bowel sounds; abdomen not distended Percussion/Palpation: abdomen soft; no guarding and abdomen not rigid Musculoskeletal: no cyanosis or clubbing, extremities motor strength 5/5 Skin: no rashes, warm and dry Neurologic: PERRL, EOMI, accommodation nl, no face palsy, no dysarthria Psychiatric: A+Ox3, euthymic affect Results & Data Results & Data ([facility]) Vital Signs (Past 12 Hours) Vital Signs Temp Pulse Pulse Resp BP BP Pulse Ox 01/31/21 16:18 87 87 20 141/105 H 99 01/31/21 15:48 36 C L 115 H 20 163/99 H 100 Laboratory Results Short CBC 01/31/21 01/31/21 Range/Units 16:07 16:07 WBC 11.91 H (4.8-10.8) K/uL Hgb 19.6 H (14.0-18.0) g/dL Hct 51.9 (42-52) % Plt Count 271 (130-400) K/uL Creatinine 1.55 H (0.6-1.4) mg/dl BMP 01/31/21 16:07 Sodium 131 L Potassium 4.6 Chloride 93 L Carbon Dioxide 21 BUN 21 H Creatinine 1.55 H Glucose 504 H* Calcium 9.5 Cardiac Enzymes 01/31/21 Range/Units 16:07 Troponin I < 0.015 (0-0.045) ng/ml Liver Function 01/31/21 Range/Units 16:07 Total Bilirubin 1.3 H (0.2-1) mg/dl AST 20 (15-37) U/L ALT 47 (12-78) U/L Alkaline Phosphatase 148 H (45-117) U/L Albumin 4.6 (3.4-5.0) gm/dl Urine 01/31/21 Range/Units 16:06 Urine Color Yellow Urine Appearance Clear (Clear) Urine pH 5.0 (4.5-7.5) Ur Specific Zachary 1.034 H (1.000-1.030) Urine Protein Negative (Negative) Urine Glucose (UA) 3+ H (Negative) Diagnostic Findings Chest X-Ray 01/31/21 16:05 XR chest 1V portable CLINICAL HISTORY: dka COMPARISON STUDY: Chest radiograph July 08, 2020. FINDINGS: Lung volumes are normal. Lungs are clear. There is no pneumothorax or pleural effusion. Cardiac size is normal. Mediastinal contours are normal. There is pulmonary vascular congestion without overt pulmonary edema. IMPRESSION: Pulmonary vascular congestion without overt pulmonary edema. ACT 112: Negative or not required by law. Electronically signed by: Luiz Davey M.D. 01/31/2021 4:45 PM Supervising Physician Co-Signing Physician Notes Patient seen and examined by me, care coordinated with ISABELLE Calle, please refer to her note above for further detail. Patient is a 35-year-old male, with history of type 1 diabetes mellitus, on insulin pump, which is now malfunctioning. Presents with nausea vomiting, found to be in DKA in the emergency room. Currently on IV fluids and IV insulin, feeling better. He is alert and oriented and answering questions appropriately. I edited my physical exam in the note above. Lungs are overall clear to auscultation b/l, heart sounds are regular, abdomen is soft and nontender to palpation. He is moving extremities spontaneously and w/o difficulty. Skin is warm and dry. We will continue current treatment with IV insulin, and IV fluids we will replace electrolytes as needed. Glycemic pharmacy on board. BMP q4hrs. Currently n.p.o. Reports ongoing diarrhea since the summer, and history of C. difficile colitis. We will test stool and will also obtain CT abdomen pelvis for further evaluation. Oswaldo Luther MD (1) DKA (diabetic ketoacidoses) Diabetes mellitus complication detail: without coma Diabetes mellitus type: t ype 1 Qualified Code(s): E10.10 - Type 1 diabetes mellitus with ketoacidosis without coma (2) Type 1 diabetes mellitus Diabetes mellitus complication status: with hyperglycemia Qualified Code(s): E10.65 - Type 1 diabetes mellitus with hyperglycemia
--- NOTE | 2021-01-31 19:41 | CT Scan Report ---
CT OF THE ABDOMEN AND PELVIS WITHOUT CONTRAST CLINICAL HISTORY: Diarrhea. COMPARISON STUDY: CT of the abdomen and pelvis May 21, 2019. TECHNIQUE: Axial images of the abdomen and pelvis were obtained without IV contrast. Images were revi ewed in the axial, sagittal, and coronal planes. Automated exposure control was utilized for the tierney dy. A dose lowering technique was utilized adhering to the principles of ALARA. FINDINGS: Lung bases are unremarkable. No pneumatosis, free air or portal venous gas is present. No r enal, ureteral or bladder calculi are present. There is no hydronephrosis or hydroureter. Evaluation of the remainder of the abdomen and pelvis is suboptimal on this unenhanced exam. The liver, spleen, adrenal glands and pancreas are unremarkable. There is no biliary or pancreatic ductal dilatation. Th ere is no evidence for a bowel obstruction. The appendix is normal. A few colonic diverticula are not ed without evidence for acute diverticulitis. No lymphadenopathy or ascites. No acute fracture or lisa picious lesion is identified within the visualized skeletal structures. IMPRESSION: 1. No urinary calculi or hydronephrosis. 2. Normal appendix. No bowel obstruction. A few colonic diverticula without evidence for acute divert iculitis. ACT 112: Negative or not required by law. Electronically signed by: Luiz Davey M.D. 01/31/2021 7:39 PM
--- NOTE | 2021-01-31 19:50 | Emergency Department Note ---
History of Present Illness General Chief complaint: Hyperglycemia Stated complaint: VOMITING, HIGH SUGAR Time Seen by Provider: 01/31/21 15:52 Source: patient Mode of arrival: ambulatory Limitations: no limitations History of Present Illness Maximum Pain Intensity: 0 This patient is a 35-year-old male who presents to the emergency department for evaluation of vomiting and high blood sugar. Patient states that his pump has been malfunctioning for the past month. His pump became disconnected last night and he did not receive insulin all night. He did receive a new pump today but has not hooked it up yet. He started vomiting 3 to 4 hours prior to arrival. He checked his sugar prior to arrival and it was in the 500s. He reports upper abdominal pain rated a 5/10. Denies chest pain or shortness of breath. Patient was diagnosed with adult onset type 1 diabetes at age 30. He does report a history of DKA. He denies any recent fever/chills or other infectious symptoms. Home Medications Medication Instructions Recorded Confirmed Type dicyclomine 10 mg PO Q6H PRN 04/14/20 01/31/21 History insulin aspart U-100 See Rx Instructions .ROUTE .COMPLEX 07/08/20 01/31/21 History tadalafil 5 mg PO QAM 01/31/21 01/31/21 History Allergies Allergy/AdvReac Type Severity Reaction Status Date / Time methyl salicylate Allergy Unknown HIVES, Verified 01/31/21 17:27 "FEELS LIKE FIRE ON MY SKIN" codeine AdvReac Intermediate BECOMES Verified 01/31/21 17:27 VERY AGGRESSIVE Past Med/Surg History Medical History Diabetes Disorder of male genital organs, unspecified DKA (diabetic ketoacidoses) Epigastric pain GERD (gastroesophageal reflux disease) Hx of psoriasis Hypertension Major depressive disorder, recurrent episode Rectal/anal hemorrhage Sebaceous cyst Suicidal ideation Tobacco abuse disorder Surgical History No pertinent past surgical history Family History Father Cardiovascular disease Diabetes Mother Diabetes Other No significant family history Social History Smoking Status: Current every day smoker Tobacco Type: Cigarettes Hx Alcohol Use: No Hx Substance Use: Yes Non-Prescribed Medications: Marijuana Preferred Language: Yi Communication Ability: Effective Beliefs That Will Affect Care: None marital status: Single Current Living Situation: Spouse current occupational status: employed Feels Safe at Home: Yes Assistive Devices: None Review of Systems A total of 10 systems reviewed and were otherwise negative Physical Exam Vital Signs Vital Signs - 24 hr 01/31/21 15:48 01/31/21 16:16 01/31/21 16:18 Temperature 36 C L Temperature Source Temporal Artery Scan Pulse Rate 115 H 86 87 Pulse Rate [Apical] 87 Respiratory Rate 20 12 20 Respiratory Effort / Characteristics Non-Labored Respiratory Depth Normal Blood Pressure 163/99 H 149/105 H Blood Pressure [Left Arm] 141/105 H Blood Pressure Mean 120 119 Blood Pressure Mean [Left Arm] 117 Pulse Oximetry 100 99 Oxygen Delivery Method Room Air Sepsis Recent Fever Within 48 Hours No Sepsis New/Unexplained Change in Mental Status No Sepsis Action Taken by Nursing No Action Required 01/31/21 16:30 01/31/21 17:00 01/31/21 17:31 Temperature Temperature Source Pulse Rate 76 94 H 102 H Pulse Rate [Apical] Respiratory Rate 19 18 17 Respiratory Effort / Characteristics Respiratory Depth Blood Pressure 143/113 H 134/89 140/89 Blood Pressure [Left Arm] Blood Pressure Mean 123 104 106 Blood Pressure Mean [Left Arm] Pulse Oximetry Oxygen Delivery Method Sepsis Recent Fever Within 48 Hours Sepsis New/Unexplained Change in Mental Status Sepsis Action Taken by Nursing 01/31/21 18:00 01/31/21 18:30 01/31/21 19:00 Temperature Temperature Source Pulse Rate 91 H 103 H 100 H Pulse Rate [Apical] Respiratory Rate 12 22 13 Respiratory Effort / Characteristics Respiratory Depth Blood Pressure 143/83 H 143/85 H 136/87 Blood Pressure [Left Arm] Blood Pressure Mean 103 104 103 Blood Pressure Mean [Left Arm] Pulse Oximetry Oxygen Delivery Method Sepsis Recent Fever Within 48 Hours Sepsis New/Unexplained Change in Mental Status Sepsis Action Taken by Nursing VITALS: Vitals are noted on the nurse's note and reviewed by myself. / GENERAL: This is a 35-year-old male, actively vomiting, acutely ill-appearing. SKIN: The skin was without rashes. HEAD: Normocephalic atraumatic. EARS: External auditory canals clear, tympanic membranes pearly swain without erythema or effusion bilaterally. EYES: Pupils equal round and reactive to light and accommodation. NOSE: Patent, turbinates without inflammation or discharge. MOUTH: Mucous membranes dry. Tonsils are not enlarged. Pharynx without erythema or exudate. NECK: Supple without nuchal rigidity. No lymphadenopathy. HEART: Regular rate and rhythm without murmurs gallops or rubs. LUNGS: Clear to auscultation bilaterally without wheezes, rales or rhonchi. ABDOMEN: Positive bowel sounds x 4. Soft, mild epigastric tenderness to palpation. NEURO: Patient was alert and oriented to person place and time. Course Consultations Consultation #1: Sofi Carrizales PA-C - [facility] hospitalist Administered Medications Insulin Human Regular 250 (units/ Sodium Chloride) 250 mls @ 0 mls/hr IV .Q0M [facility]; Protocol Stop: 03/02/21 17:14 Last Titration: 01/31/21 19:17 Dose: 0 units/hr, 0 mls/hr Documented by: [id number] Cosigned by: [id number] Admin: 01/31/21 17:52 Dose: 7.6 units/hr, 7.6 mls/hr Documented by: [id number] Cosigned by: [id number] Discontinued Medications Sodium Chloride (Nss 1000ml) 2,000 mls @ 999 mls/hr IV .Q2H1M ONE Stop: 01/31/21 18:03 Last Infusion: 01/31/21 18:38 Dose: 0 mls/hr Documented by: [id number] Admin: 01/31/21 16:17 Dose: 999 mls/hr Documented by: [id number] Insulin Human Regular (Novolin-R Bolus From Bag) 7.6 units IV ONE ONE Stop: 01/31/21 17:16 Last Admin: 01/31/21 17:59 Dose: 7.6 units Documented by: [id number] Cosigned by: [id number] Ondansetron HCl (Ondansetron Inj 2 Mg/Ml 2 Ml Vial) Confirm Administered Dose 4 mg .ROUTE .STK-MED ONE Stop: 01/31/21 16:01 Last Admin: 01/31/21 16:17 Dose: 4 mg Documented by: [id number] Critical Care Time Critical Care Time: Yes Total Critical Care Time: 40 I have personally spent greater than 40 minutes of critical care time in the direct management of this patient. This includes bedside care, interpretation of diagnostic studies, and testing, discussion with consultants, patient, and family members, and other required patient management activities. This 40 minutes is in excess of all separately billable procedures. Medical Decision Making Differential Diagnosis Gastroenteritis, food borne illness, infections, appendicitis, diverticulitis, inflammatory bowel disease, obstruction, GI bleed, biliary pathology, volvulus, as well as other pathologies. Home Medications Current Medication List: was personally reviewed by me Laboratory Data Attestation: I reviewed the patient's lab results. Result diagrams: 01/31/21 16:07 01/31/21 16:07 Lab Results 01/31/21 01/31/21 01/31/21 Range/Units 16:06 16:06 16:06 WBC (4.8-10.8) K/uL RBC (4.7-6.1) M/uL Hgb (14.0-18.0) g/dL POC Hgb (14.0-18.0) g/dl Hct (42-52) % POC Hct (42-52) % MCV (80-100) fL MCH (25-34) pg MCHC (32-36) g/dL RDW Std Deviation (36.4-46.3) fL RDW Coeff of Bhavik (11.5-14.5) % Plt Count (130-400) K/uL MPV (7.4-10.4) fL Immature Gran % (Auto) % Neut % (Auto) % Lymph % (Auto) % Benzie % (Auto) % Eos % (Auto) % Baso % (Auto) % Neut # (Auto) (1.4-6.5) K/uL Lymph # (Auto) (1.2-3.4) K/uL Benzie # (Auto) (0.11-0.59) K/uL Eos # (Auto) (0-0.5) K/uL Baso # (Auto) (0-0.2) K/uL Immature Gran # (Auto) (0.00-0.02) K/uL VBG pH (7.36-7.41) VBG pCO2 (38-50) mmHg VBG pO2 mmHg VBG HCO3 mmol/L VBG O2 Saturation % VBG Base Excess mEq/L Barometric Pressure mm/Hg POC Sodium (135-144) mmol/L Sodium (136-145) mmol/L POC Potassium (3.3-5.0) mmol/L Potassium (3.5-5.1) mmol/L POC Chloride (101-112) mmol/L Chloride (98-107) mmol/L Carbon Dioxide (21-32) mmol/L POC Total CO2 (24-31) mmol/L Anion Gap (3-11) POC Anion Gap (16-25) mmol/L POC BUN (7-18) mg/dl BUN (7-18) mg/dl Creatinine (0.6-1.4) mg/dl POC Creatinine (0.6-1.3) mg/dl Est Cr Clr Drug Dosing ml/min Est GFR ( Amer) ml/min Est GFR (Non-Af Amer) ml/min BUN/Creatinine Ratio (10-20) Glucose (70-99) mg/dl POC Glucose (70-99) mg/dl POC Glucose (other) (70-99) mg/dl Lactate (0.4-2.0) mmol/L Calcium (8.5-10.1) mg/dl POC Ioniz Calcium Andrew (1.12-1.32) mmol/l Phosphorus (2.5-4.9) mg/dl Magnesium (1.8-2.4) mg/dl Total Bilirubin (0.2-1) mg/dl AST (15-37) U/L ALT (12-78) U/L Alkaline Phosphatase (45-117) U/L Troponin I (0-0.045) ng/ml Total Protein (6.4-8.2) gm/dl Albumin (3.4-5.0) gm/dl Globulin (2.5-4.0) gm/dl Albumin/Globulin Ratio (0.9-2) Lipase (73-393) U/L Beta-Hydroxybutyric Acd (0.2-2.81) mg/dl Urine Color Yellow Urine Appearance Clear (Clear) Urine pH 5.0 (4.5-7.5) Ur Specific [place] 1.034 H (1.000-1.030) Urine Protein Negative (Negative) Urine Glucose (UA) 3+ H (Negative) Urine Ketones 4+ H (Negative) Urine Blood Negative (Negative) Urine Nitrite Negative (Negative) Urine Bilirubin Negative (Negative) Urine Urobilinogen Negative (Negative) Ur Leukocyte Esterase Negative (Negative) COVID-19 Eval Order Covid19 at [facility] SARS-CoV-2 (PCR) NEGATIVE (Negative) 01/31/21 01/31/21 01/31/21 Range/Units 16:07 16:07 16:07 WBC 11.91 H (4.8-10.8) K/uL RBC 5.80 (4.7-6.1) M/uL Hgb 19.6 H (14.0-18.0) g/dL POC Hgb (14.0-18.0) g/dl Hct 51.9 (42-52) % POC Hct (42-52) % MCV 89.5 (80-100) fL MCH 33.8 (25-34) pg MCHC 37.8 H (32-36) g/dL RDW Std Deviation 40.2 (36.4-46.3) fL RDW Coeff of Bhavik 12.2 (11.5-14.5) % Plt Count 271 (130-400) K/uL MPV 10.2 (7.4-10.4) fL Immature Gran % (Auto) 0.2 % Neut % (Auto) 86.0 % Lymph % (Auto) 7.6 % Benzie % (Auto) 5.3 % Eos % (Auto) 0.6 % Baso % (Auto) 0.3 % Neut # (Auto) 10.25 H (1.4-6.5) K/uL Lymph # (Auto) 0.90 L (1.2-3.4) K/uL Benzie # (Auto) 0.63 H (0.11-0.59) K/uL Eos # (Auto) 0.07 (0-0.5) K/uL Baso # (Auto) 0.04 (0-0.2) K/uL Immature Gran # (Auto) 0.02 (0.00-0.02) K/uL VBG pH (7.36-7.41) VBG pCO2 (38-50) mmHg VBG pO2 mmHg VBG HCO3 mmol/L VBG O2 Saturation % VBG Base Excess mEq/L Barometric Pressure mm/Hg POC Sodium (135-144) mmol/L Sodium 131 L (136-145) mmol/L POC Potassium (3.3-5.0) mmol/L Potassium 4.6 (3.5-5.1) mmol/L POC Chloride (101-112) mmol/L Chloride 93 L (98-107) mmol/L Carbon Dioxide 21 (21-32) mmol/L POC Total CO2 (24-31) mmol/L Anion Gap 18.0 H (3-11) POC Anion Gap (16-25) mmol/L POC BUN (7-18) mg/dl BUN 21 H (7-18) mg/dl Creatinine 1.55 H (0.6-1.4) mg/dl POC Creatinine (0.6-1.3) mg/dl Est Cr Clr Drug Dosing 72.2 ml/min Est GFR ( Amer) 67.2 ml/min Est GFR (Non-Af Amer) 58.0 ml/min BUN/Creatinine Ratio 13.2 (10-20) Glucose 504 H* (70-99) mg/dl POC Glucose (70-99) mg/dl POC Glucose (other) (70-99) mg/dl Lactate 5.2 H* (0.4-2.0) mmol/L Calcium 9.5 (8.5-10.1) mg/dl POC Ioniz Calcium Andrew (1.12-1.32) mmol/l Phosphorus 3.8 (2.5-4.9) mg/dl Magnesium 2.5 H (1.8-2.4) mg/dl Total Bilirubin 1.3 H (0.2-1) mg/dl AST 20 (15-37) U/L ALT 47 (12-78) U/L Alkaline Phosphatase 148 H (45-117) U/L Troponin I < 0.015 (0-0.045) ng/ml Total Protein 8.6 H (6.4-8.2) gm/dl Albumin 4.6 (3.4-5.0) gm/dl Globulin 4.0 (2.5-4.0) gm/dl Albumin/Globulin Ratio 1.2 (0.9-2) Lipase 76 (73-393) U/L Beta-Hydroxybutyric Acd 51.65 H (0.2-2.81) mg/dl Urine Color Urine Appearance (Clear) Urine pH (4.5-7.5) Ur Specific [place] (1.000-1.030) Urine Protein (Negative) Urine Glucose (UA) (Negative) Urine Ketones (Negative) Urine Blood (Negative) Urine Nitrite (Negative) Urine Bilirubin (Negative) Urine Urobilinogen (Negative) Ur Leukocyte Esterase (Negative) COVID-19 Eval Order SARS-CoV-2 (PCR) (Negative) 01/31/21 01/31/21 01/31/21 Range/Units 16:18 16:29 17:31 WBC (4.8-10.8) K/uL RBC (4.7-6.1) M/uL Hgb (14.0-18.0) g/dL POC Hgb 19.4 H (14.0-18.0) g/dl Hct (42-52) % POC Hct 57 H (42-52) % MCV (80-100) fL MCH (25-34) pg MCHC (32-36) g/dL RDW Std Deviation (36.4-46.3) fL RDW Coeff of Bhavik (11.5-14.5) % Plt Count (130-400) K/uL MPV (7.4-10.4) fL Immature Gran % (Auto) % Neut % (Auto) % Lymph % (Auto) % Benzie % (Auto) % Eos % (Auto) % Baso % (Auto) % Neut # (Auto) (1.4-6.5) K/uL Lymph # (Auto) (1.2-3.4) K/uL Benzie # (Auto) (0.11-0.59) K/uL Eos # (Auto) (0-0.5) K/uL Baso # (Auto) (0-0.2) K/uL Immature Gran # (Auto) (0.00-0.02) K/uL VBG pH 7.32 L (7.36-7.41) VBG pCO2 44 (38-50) mmHg VBG pO2 20 mmHg VBG HCO3 22 mmol/L VBG O2 Saturation < 60.0 % VBG Base Excess -4.3 mEq/L Barometric Pressure 733.6 mm/Hg POC Sodium 134 L (135-144) mmol/L Sodium (136-145) mmol/L POC Potassium 4.4 (3.3-5.0) mmol/L Potassium (3.5-5.1) mmol/L POC Chloride 93 L (101-112) mmol/L Chloride (98-107) mmol/L Carbon Dioxide (21-32) mmol/L POC Total CO2 19 L (24-31) mmol/L Anion Gap (3-11) POC Anion Gap 28.0 H (16-25) mmol/L POC BUN 21 H (7-18) mg/dl BUN (7-18) mg/dl Creatinine (0.6-1.4) mg/dl POC Creatinine 0.9 (0.6-1.3) mg/dl Est Cr Clr Drug Dosing ml/min Est GFR ( Amer) ml/min Est GFR (Non-Af Amer) ml/min BUN/Creatinine Ratio (10-20) Glucose (70-99) mg/dl POC Glucose 349 H* (70-99) mg/dl POC Glucose (other) 510 H* (70-99) mg/dl Lactate (0.4-2.0) mmol/L Calcium (8.5-10.1) mg/dl POC Ioniz Calcium Andrew 1.17 (1.12-1.32) mmol/l Phosphorus (2.5-4.9) mg/dl Magnesium (1.8-2.4) mg/dl Total Bilirubin (0.2-1) mg/dl AST (15-37) U/L ALT (12-78) U/L Alkaline Phosphatase (45-117) U/L Troponin I (0-0.045) ng/ml Total Protein (6.4-8.2) gm/dl Albumin (3.4-5.0) gm/dl Globulin (2.5-4.0) gm/dl Albumin/Globulin Ratio (0.9-2) Lipase (73-393) U/L Beta-Hydroxybutyric Acd (0.2-2.81) mg/dl Urine Color Urine Appearance (Clear) Urine pH (4.5-7.5) Ur Specific [place] (1.000-1.030) Urine Protein (Negative) Urine Glucose (UA) (Negative) Urine Ketones (Negative) Urine Blood (Negative) Urine Nitrite (Negative) Urine Bilirubin (Negative) Urine Urobilinogen (Negative) Ur Leukocyte Esterase (Negative) COVID-19 Eval Order SARS-CoV-2 (PCR) (Negative) 01/31/21 01/31/2101/31/21 Range/Units 17:55 17:59 19:04 WBC (4.8-10.8) K/uL RBC (4.7-6.1) M/uL Hgb (14.0-18.0) g/dL POC Hgb (14.0-18.0) g/dl Hct (42-52) % POC Hct (42-52) % MCV (80-100) fL MCH (25-34) pg MCHC (32-36) g/dL RDW Std Deviation (36.4-46.3) fL RDW Coeff of Bhavik (11.5-14.5) % Plt Count (130-400) K/uL MPV (7.4-10.4) fL Immature Gran % (Auto) % Neut % (Auto) % Lymph % (Auto) % Benzie % (Auto) % Eos % (Auto) % Baso % (Auto) % Neut # (Auto) (1.4-6.5) K/uL Lymph # (Auto) (1.2-3.4) K/uL Benzie # (Auto) (0.11-0.59) K/uL Eos # (Auto) (0-0.5) K/uL Baso # (Auto) (0-0.2) K/uL Immature Gran # (Auto) (0.00-0.02) K/uL VBG pH (7.36-7.41) VBG pCO2 (38-50) mmHg VBG pO2 mmHg VBG HCO3 mmol/L VBG O2 Saturation % VBG Base Excess mEq/L Barometric Pressure mm/Hg POC Sodium (135-144) mmol/L Sodium (136-145) mmol/L POC Potassium (3.3-5.0) mmol/L Potassium (3.5-5.1) mmol/L POC Chloride (101-112) mmol/L Chloride (98-107) mmol/L Carbon Dioxide (21-32) mmol/L POC Total CO2 (24-31) mmol/L Anion Gap (3-11) POC Anion Gap (16-25) mmol/L POC BUN (7-18) mg/dl BUN (7-18) mg/dl Creatinine (0.6-1.4) mg/dl POC Creatinine (0.6-1.3) mg/dl Est Cr Clr Drug Dosing ml/min Est GFR ( Amer) ml/min Est GFR (Non-Af Amer) ml/min BUN/Creatinine Ratio (10-20) Glucose (70-99) mg/dl POC Glucose 350 H* 164 H (70-99) mg/dl POC Glucose (other) (70-99) mg/dl Lactate 3.2 H* (0.4-2.0) mmol/L Calcium (8.5-10.1) mg/dl POC Ioniz Calcium Andrew (1.12-1.32) mmol/l Phosphorus (2.5-4.9) mg/dl Magnesium (1.8-2.4) mg/dl Total Bilirubin (0.2-1) mg/dl AST (15-37) U/L ALT (12-78) U/L Alkaline Phosphatase (45-117) U/L Troponin I (0-0.045) ng/ml Total Protein (6.4-8.2) gm/dl Albumin (3.4-5.0) gm/dl Globulin (2.5-4.0) gm/dl Albumin/Globulin Ratio (0.9-2) Lipase (73-393) U/L Beta-Hydroxybutyric Acd (0.2-2.81) mg/dl Urine Color Urine Appearance (Clear) Urine pH (4.5-7.5) Ur Specific [place] (1.000-1.030) Urine Protein (Negative) Urine Glucose (UA) (Negative) Urine Ketones (Negative) Urine Blood (Negative) Urine Nitrite (Negative) Urine Bilirubin (Negative) Urine Urobilinogen (Negative) Ur Leukocyte Esterase (Negative) COVID-19 Eval Order SARS-CoV-2 (PCR) (Negative) Imaging Data Attestation: I personally reviewed and interpreted this imaging study as follows: Radiologist's Impression: Chest X-Ray 01/31/21 16:05 XR chest 1V portable CLINICAL HISTORY: dka COMPARISON STUDY: Chest radiograph July 08, 2020. FINDINGS: Lung volumes are normal. Lungs are clear. There is no pneumothorax or pleural effusion. Cardiac size is normal. Mediastinal contours are normal. There is pulmonary vascular congestion without overt pulmonary edema. IMPRESSION: Pulmonary vascular congestion without overt pulmonary edema. ACT 112: Negative or not required by law. Electronically signed by: Luiz Davey M.D. 01/31/2021 4:45 PM ECG Data Attestation: I personally reviewed and interpreted this ECG as follows: Indication: + vomiting Rate (beats per minute): 80 Rhythm: + sinus with SA ECG Intervals/blocks: + Normal QRS ECG ST segments: + Normal ST segments Change: no significant change MDM Narrative Continuous surveillance system monitor: Order was placed for continuous surveillance system monitor. Patient was placed on the surveillance system monitor. Patient was noted to be in sinus tachycardia at an initial rate of 115 bpm. The patient is a 35-year-old male who presents today complaining of vomiting and high blood sugar. Patient found to be in DKA with glucose 510, anion gap 18 and VBG with acidosis. Patient has an acute kidney injury with creatinine of 1.55. Mild leukocytosis and elevated H&H, consistent with hemoconcentration. Lactate elevated at 5 which I suspect is due to dehydration. Patient clinically appears dehydrated and was given 2 L normal saline on arrival. 2 peripheral IVs were placed. [facility] an [facility]p [facility]. The patient's case was discussed with Dr. Tsang, who agreed with my evaluation and treatment plan. Impression & Plan DKA (diabetic ketoacidosis), Elevated lactic acid level, JESSIE (acute kidney injury) Discharge Plan Visit Data Chief Complaint: Hyperglycemia Stated Complaint: VOMITING, HIGH SUGAR ED Provider: Tristan Tsang ED Midlevel Provider: Lizett Ortiz Discharge Problem: DKA (diabetic ketoacidosis), Elevated lactic acid level, JESSIE (acute kidney injury) Forms Stand Alone Forms: My [facility]Blue Prescriptions Prescriptions: No Action dicyclomine 10 mg capsule 10 mg PO Q6H PRN (Reason: IBS) RF: 0 insulin aspart U-100 100 unit/mL solution See Rx Instructions .ROUTE .COMPLEX RF: 0 tadalafil 5 mg tablet 5 mg PO QAM RF: 0 Discharge Problem: DKA (diabetic ketoacidosis) Qualifiers: Diabetes mellitus type: type 1 Diabetes mellitus complication detail: without coma Qualified Code(s): E10.10 - Type 1 diabetes mellitus with ketoacidosis without coma
[2021-01-31] MEDS ORDERED: SODIUM CHLORIDE 0.9% 1000ML 1,000 ML IV SCH (20:46)
[2021-01-31] MEDS ORDERED: PENDING 1/2NSS+20mEq KCL IVF SCH (20:46)
[2021-01-31] MEDS ORDERED: ACETAMINOPHEN 325 MG TAB PO PRN (20:46)
[2021-01-31] MEDS ORDERED: PHARMACY GLYCEMIC MGMT CONSULT PRN (20:52)
[2021-01-31] MEDS: D5W AND 1/2NSS + 20MEQ KCL 20 MEQ/1,000 ML BAG IV SCH (21:25)
[2021-01-31] MEDS: INSULIN ASPART 100 UNITS/ML 3 ML PEN SC SCH (21:59)
[2021-01-31 22:12] LABS: BUN Creatinine Ratio 15.6 (10-20); Creatinine Clr Calc Pharmacy 108.6 ml/min; Est GFR (African American) 110.1 ml/min; Phosphorus 2.2 mg/dl (2.5-4.9)
[2021-01-31] MEDS ORDERED: diphenhydrAMINE Capsule 25 MG CAP PO PRN (23:36)
[2021-02-01 00:28] LABS: Calcium 8.3 mg/dl (8.5-10.1); Creatinine Clr Calc Pharmacy 106.6 ml/min; Est GFR (African American) 107.6 ml/min; Est GFR (Non-African American) 92.8 ml/min; Magnesium 1.9 mg/dl (1.8-2.4); Phosphorus 2.5 mg/dl (2.5-4.9); Potassium 3.9 mmol/L (3.5-5.1)
[2021-02-01] MEDS: D5W AND 1/2NSS + 20MEQ KCL 20 MEQ/1,000 ML BAG IV SCH (05:22)
[2021-02-01 06:43] LABS: BUN Creatinine Ratio 15.3 (10-20); Calcium 8.5 mg/dl (8.5-10.1); Creatinine Clr Calc Pharmacy 117.8 ml/min; Est GFR (African American) 121.4 ml/min; Est GFR (Non-African American) 104.8 ml/min; Potassium 3.9 mmol/L (3.5-5.1)
[2021-02-01 06:44] LABS: Phosphorus 3.3 mg/dl (2.5-4.9)
--- NOTE | 2021-02-01 07:36 | Hospitalist Progress Note ---
Date of Service February 01, 2021 Assessment & Plan (1) DKA (diabetic ketoacidoses): (2) Type 1 diabetes mellitus: Pt is a 35 y/o M with PMH DM I with insulin pump, depression presented to ER with complaint of nausea and vomiting and insulin pump falling off last night. edema, rashes, urinary symptoms. In ER patient afebrile, P: 115, BP: 163/99, R: 20, O2 sat: 99 on RA. Glucose 504, beta hydroxybutyric acid: 51, K: 4.6, ma.5, CO2: 21, anion gap: 18, VBG pH: 7.3 In ER was given 2 L NSS and insulin drip was started with repeat BSG of 350 IVF, Insulin Drip pharmacy glycemic consult Repeat BMP, phosphorus and magnesium labs NPO until acidosis resolved Pt will need to keep outpatient glycemic pharmacy follow up for insulin pump management 02/01 Currently patient is feeling much better, on IV fluids and IV insulin, however anion gap is closed, and will start patient on subcu insulin, and clear liquid diet. Clinically much improved, without any nausea or vomiting. His new pump was also programmed by a pharmacist. (3) Elevated lactic acid level: lactate 5, UA unremarkable for infection, CXR: No infiltrate Probable secondary to DKA, dehydration Repeat lactate 3.2 -> 1.[address] abdomen/pelvis secondary to diarrhea IMPRESSION: 1. No urinary calculi or hydronephrosis. 2. Normal appendix. No bowel obstruction. A few colonic diverticula without evidence for acute diverticulitis. Elevated lactic acid resolved (4) JESSIE (acute kidney injury): Cr: 1.5. GFR: 58. Baseline Cr: 1.0 with GFR>60 - secondary to dehydration IV fluids Monitor renal functions, avoid nephrotoxic agents when possible JESSIE now resolved Cr 0.98 (5) Diarrhea: Reports 10 or more episodes of loose stools/day (on a good day) for the past year Obtain C. difficile, stool culture, ova parasites, Giardia Start probiotic CT abdomen pelvis unremarkable May need GI consult or outpatient GI follow-up Patient was unable to provide stool sample since admission, will start diet, and hopefully obtain sample Depression - on admission identified as high risk/history of suicidal ideations/suicidal attempts -Was seen by psychiatry nurse overnight, psychiatry consulted DVT Prophylaxis -SCDs Full Code Follows with Dr Orellana for routine care Admission and Anticipated Discharge Date Admission Date: January 31, 2021 Subjective Patient seen in follow-up of DKA Currently he is feeling much better, reports feeling hungry denies any more nausea vomiting Anion gap closed, will start him on clear liquid diet Patient on admission reported frequent diarrhea, he did not have any bowel movement since admission though Currently denies any fevers, chills, chest pain, shortness of breath, abdominal pain Reports that the pharmacist was able to program his new pump Overnight patient was seen by psychiatry liaison, for high risk /suicidal ideation. Psychiatry was consulted. Review of Systems Review of Systems: All systems reviewed & are unremarkable except as noted in HPI & below Constitutional: no fever and no chills Respiratory: no cough and no dyspnea Cardiovascular: no chest pain and no palpitations Gastrointestinal: no abdominal pain, no nausea and no vomiting Physical Exam Constitutional: WD/WN, vitals as above no acute distress Eyes: PERRL, conjunctivae normal, anicteric sclerae ENMT: external ear and nose normal, oropharynx normal Neck: trachea midline, no thyromegaly Respiratory: normal respiratory effort, lungs clear to auscultation Cardiovascular: RRR, no murmur, no edema Chest (Breasts): Chest: normal inspection of chest Gastrointestinal (Abdomen): Inspection/Auscultation: abdomen normal to inspection and normal bowel sounds; abdomen not distended Percussion/Palpation: abdomen soft; no guarding and abdomen not rigid Musculoskeletal: no cyanosis or clubbing, extremities motor strength 5/5 Skin: no rashes, warm and dry Neurologic: PERRL, EOMI, accommodation nl, no face palsy, no dysarthria Psychiatric: A+Ox3, euthymic affect Results & Data Results & Data ([facility]) Vital Signs (Past 12 Hours) Vital Signs Temp Pulse Resp BP BP Pulse Ox 02/01/21 03:47 36.8 C 106 H 18 133/68 97 01/31/21 23:31 36.8 C 100 H 16 129/72 96 01/31/21 20:48 37 C 107 H 16 142/87 H 98 Laboratory Results 02/01/21 02/01/21 02/01/21 Range/Units 06:34 05:45 05:35 WBC (4.8-10.8) K/uL RBC (4.7-6.1) M/uL Hgb (14.0-18.0) g/dL POC Hgb (14.0-18.0) g/dl Hct (42-52) % POC Hct (42-52) % MCV (80-100) fL MCH (25-34) pg MCHC (32-36) g/dL RDW Std Deviation (36.4-46.3) fL RDW Coeff of Bhavik (11.5-14.5) % Plt Count (130-400) K/uL MPV (7.4-10.4) fL Immature Gran % (Auto) % Neut % (Auto) % Lymph % (Auto) % [place] % (Auto) % Eos % (Auto) % Baso % (Auto) % Neut # (Auto) (1.4-6.5) K/uL Lymph # (Auto) (1.2-3.4) K/uL [place] # (Auto) (0.11-0.59) K/uL Eos # (Auto) (0-0.5) K/uL Baso # (Auto) (0-0.2) K/uL Immature Gran # (Auto) (0.00-0.02) K/uL VBG pH (7.36-7.41) VBG pCO2 (38-50) mmHg VBG pO2 mmHg VBG HCO3 mmol/L VBG O2 Saturation % VBG Base Excess mEq/L Barometric Pressure mm/Hg POC Sodium (135-144) mmol/L Sodium 136 (136-145) mmol/L POC Potassium (3.3-5.0) mmol/L Potassium 3.9 (3.5-5.1) mmol/L POC Chloride (101-112) mmol/L Chloride 103 (98-107) mmol/L Carbon Dioxide 27 (21-32) mmol/L POC Total CO2 (24-31) mmol/L Anion Gap 6.0 (3-11) POC Anion Gap (16-25) mmol/L POC BUN (7-18) mg/dl BUN 15 (7-18) mg/dl Creatinine 0.95 (0.6-1.4) mg/dl POC Creatinine (0.6-1.3) mg/dl Est Cr Clr Drug Dosing 117.8 ml/min Est GFR ( Amer) 121.4 ml/min Est GFR (Non-Af Amer) 104.8 ml/min BUN/Creatinine Ratio 15.3 (10-20) Glucose 222 H (70-99) mg/dl POC Glucose 205 H 211 H (70-99) mg/dl POC Glucose (other) (70-99) mg/dl Estimat Average Glucose Hemoglobin A1c Lactate (0.4-2.0) mmol/L Calcium 8.5 (8.5-10.1) mg/dl POC Ioniz Calcium Andrew (1.12-1.32) mmol/l Phosphorus 3.3 (2.5-4.9) mg/dl Magnesium 2.0 (1.8-2.4) mg/dl Total Bilirubin (0.2-1) mg/dl AST (15-37) U/L ALT (12-78) U/L Alkaline Phosphatase (45-117) U/L Troponin I (0-0.045) ng/ml Total Protein (6.4-8.2) gm/dl Albumin (3.4-5.0) gm/dl Globulin (2.5-4.0) gm/dl Albumin/Globulin Ratio (0.9-2) Lipase (73-393) U/L Beta-Hydroxybutyric Acd (0.2-2.81) mg/dl Urine Color Urine Appearance (Clear) Urine pH (4.5-7.5) Ur Specific [place] (1.000-1.030) Urine Protein (Negative) Urine Glucose (UA) (Negative) Urine Ketones (Negative) Urine Blood (Negative) Urine Nitrite (Negative) Urine Bilirubin (Negative) Urine Urobilinogen (Negative) Ur Leukocyte Esterase (Negative) COVID-19 Eval Order SARS-CoV-2 (PCR) (Negative) 02/01/21 02/01/21 02/01/21 Range/Units 04:36 03:43 02:36 WBC (4.8-10.8) K/uL RBC (4.7-6.1) M/uL Hgb (14.0-18.0) g/dL POC Hgb (14.0-18.0) g/dl Hct (42-52) % POC Hct (42-52) % MCV (80-100) fL MCH (25-34) pg MCHC (32-36) g/dL RDW Std Deviation (36.4-46.3) fL RDW Coeff of Bhavik (11.5-14.5) % Plt Count (130-400) K/uL MPV (7.4-10.4) fL Immature Gran % (Auto) % Neut % (Auto) % Lymph % (Auto) % [place] % (Auto) % Eos % (Auto) % Baso % (Auto) % Neut # (Auto) (1.4-6.5) K/uL Lymph # (Auto) (1.2-3.4) K/uL [place] # (Auto) (0.11-0.59) K/uL Eos # (Auto) (0-0.5) K/uL Baso # (Auto) (0-0.2) K/uL Immature Gran # (Auto) (0.00-0.02) K/uL VBG pH (7.36-7.41) VBG pCO2 (38-50) mmHg VBG pO2 mmHg VBG HCO3 mmol/L VBG O2 Saturation % VBG Base Excess mEq/L Barometric Pressure mm/Hg POC Sodium (135-144) mmol/L Sodium (136-145) mmol/L POC Potassium (3.3-5.0) mmol/L Potassium (3.5-5.1) mmol/L POC Chloride (101-112) mmol/L Chloride (98-107) mmol/L Carbon Dioxide (21-32) mmol/L POC Total CO2 (24-31) mmol/L Anion Gap (3-11) POC Anion Gap (16-25) mmol/L POC BUN (7-18) mg/dl BUN (7-18) mg/dl Creatinine (0.6-1.4) mg/dl POC Creatinine (0.6-1.3) mg/dl Est Cr Clr Drug Dosing ml/min Est GFR ( Amer) ml/min Est GFR (Non-Af Amer) ml/min BUN/Creatinine Ratio (10-20) Glucose (70-99) mg/dl POC Glucose 243 H 176 H 116 H (70-99) mg/dl POC Glucose (other) (70-99) mg/dl Estimat Average Glucose Hemoglobin A1c Lactate (0.4-2.0) mmol/L Calcium (8.5-10.1) mg/dl POC Ioniz Calcium Andrew (1.12-1.32) mmol/l Phosphorus (2.5-4.9) mg/dl Magnesium (1.8-2.4) mg/dl Total Bilirubin (0.2-1) mg/dl AST (15-37) U/L ALT (12-78) U/L Alkaline Phosphatase (45-117) U/L Troponin I (0-0.045) ng/ml Total Protein (6.4-8.2) gm/dl Albumin (3.4-5.0) gm/dl Globulin (2.5-4.0) gm/dl Albumin/Globulin Ratio (0.9-2) Lipase (73-393) U/L Beta-Hydroxybutyric Acd (0.2-2.81) mg/dl Urine Color Urine Appearance (Clear) Urine pH (4.5-7.5) Ur Specific [place] (1.000-1.030) Urine Protein (Negative) Urine Glucose (UA) (Negative) Urine Ketones (Negative) Urine Blood (Negative) Urine Nitrite (Negative) Urine Bilirubin (Negative) Urine Urobilinogen (Negative) Ur Leukocyte Esterase (Negative) COVID-19 Eval Order SARS-CoV-2 (PCR) (Negative) 02/01/21 02/01/21 02/01/21 Range/Units 02:20 01:19 00:31 WBC (4.8-10.8) K/uL RBC (4.7-6.1) M/uL Hgb (14.0-18.0) g/dL POC Hgb (14.0-18.0) g/dl Hct (42-52) % POC Hct (42-52) % MCV (80-100) fL MCH (25-34) pg MCHC (32-36) g/dL RDW Std Deviation (36.4-46.3) fL RDW Coeff of Bhavik (11.5-14.5) % Plt Count (130-400) K/uL MPV (7.4-10.4) fL Immature Gran % (Auto) % Neut % (Auto) % Lymph % (Auto) % [place] % (Auto) % Eos % (Auto) % Baso % (Auto) % Neut # (Auto) (1.4-6.5) K/uL Lymph # (Auto) (1.2-3.4) K/uL [place] # (Auto) (0.11-0.59) K/uL Eos # (Auto) (0-0.5) K/uL Baso # (Auto) (0-0.2) K/uL Immature Gran # (Auto) (0.00-0.02) K/uL VBG pH (7.36-7.41) VBG pCO2 (38-50) mmHg VBG pO2 mmHg VBG HCO3 mmol/L VBG O2 Saturation % VBG Base Excess mEq/L Barometric Pressure mm/Hg POC Sodium (135-144) mmol/L Sodium (136-145) mmol/L POC Potassium (3.3-5.0) mmol/L Potassium (3.5-5.1) mmol/L POC Chloride (101-112) mmol/L Chloride (98-107) mmol/L Carbon Dioxide (21-32) mmol/L POC Total CO2 (24-31) mmol/L Anion Gap (3-11) POC Anion Gap (16-25) mmol/L POC BUN (7-18) mg/dl BUN (7-18) mg/dl Creatinine (0.6-1.4) mg/dl POC Creatinine (0.6-1.3) mg/dl Est Cr Clr Drug Dosing ml/min Est GFR ( Amer) ml/min Est GFR (Non-Af Amer) ml/min BUN/Creatinine Ratio (10-20) Glucose (70-99) mg/dl POC Glucose 111 H 135 H 131 H (70-99) mg/dl POC Glucose (other) (70-99) mg/dl Estimat Average Glucose Hemoglobin A1c Lactate (0.4-2.0) mmol/L Calcium (8.5-10.1) mg/dl POC Ioniz Calcium Andrew (1.12-1.32) mmol/l Phosphorus (2.5-4.9) mg/dl Magnesium (1.8-2.4) mg/dl Total Bilirubin (0.2-1) mg/dl AST (15-37) U/L ALT (12-78) U/L Alkaline Phosphatase (45-117) U/L Troponin I (0-0.045) ng/ml Total Protein (6.4-8.2) gm/dl Albumin (3.4-5.0) gm/dl Globulin (2.5-4.0) gm/dl Albumin/Globulin Ratio (0.9-2) Lipase (73-393) U/L Beta-Hydroxybutyric Acd (0.2-2.81) mg/dl Urine Color Urine Appearance (Clear) Urine pH (4.5-7.5) Ur Specific [place] (1.000-1.030) Urine Protein (Negative) Urine Glucose (UA) (Negative) Urine Ketones (Negative) Urine Blood (Negative) Urine Nitrite (Negative) Urine Bilirubin (Negative) Urine Urobilinogen (Negative) Ur Leukocyte Esterase (Negative) COVID-19 Eval Order SARS-CoV-2 (PCR) (Negative) 01/31/21 01/31/21 01/31/21 Range/Units 23:32 23:14 23:12 WBC (4.8-10.8) K/uL RBC (4.7-6.1) M/uL Hgb (14.0-18.0) g/dL POC Hgb (14.0-18.0) g/dl Hct (42-52) % POC Hct (42-52) % MCV (80-100) fL MCH (25-34) pg MCHC (32-36) g/dL RDW Std Deviation (36.4-46.3) fL RDW Coeff of Bhavik (11.5-14.5) % Plt Count (130-400) K/uL MPV (7.4-10.4) fL Immature Gran % (Auto) % Neut % (Auto) % Lymph % (Auto) % [place] % (Auto) % Eos % (Auto) % Baso % (Auto) % Neut # (Auto) (1.4-6.5) K/uL Lymph # (Auto) (1.2-3.4) K/uL [place] # (Auto) (0.11-0.59) K/uL Eos # (Auto) (0-0.5) K/uL Baso # (Auto) (0-0.2) K/uL Immature Gran # (Auto) (0.00-0.02) K/uL VBG pH (7.36-7.41) VBG pCO2 (38-50) mmHg VBG pO2 mmHg VBG HCO3 mmol/L VBG O2 Saturation % VBG Base Excess mEq/L Barometric Pressure mm/Hg POC Sodium (135-144) mmol/L Sodium 136 (136-145) mmol/L POC Potassium (3.3-5.0) mmol/L Potassium 3.9 (3.5-5.1) mmol/L POC Chloride (101-112) mmol/L Chloride 104 (98-107) mmol/L Carbon Dioxide 26 (21-32) mmol/L POC Total CO2 (24-31) mmol/L Anion Gap 6.0 (3-11) POC Anion Gap (16-25) mmol/L POC BUN (7-18) mg/dl BUN 16 (7-18) mg/dl Creatinine 1.05 (0.6-1.4) mg/dl POC Creatinine (0.6-1.3) mg/dl Est Cr Clr Drug Dosing 106.6 ml/min Est GFR ( Amer) 107.6 ml/min Est GFR (Non-Af Amer) 92.8 ml/min BUN/Creatinine Ratio 15.0 (10-20) Glucose 158 H (70-99) mg/dl POC Glucose 156 H (70-99) mg/dl POC Glucose (other) (70-99) mg/dl Estimat Average Glucose Hemoglobin A1c Lactate 1.5 (0.4-2.0) mmol/L Calcium 8.3 L (8.5-10.1) mg/dl POC Ioniz Calcium Andrew (1.12-1.32) mmol/l Phosphorus 2.5 (2.5-4.9) mg/dl Magnesium 1.9 (1.8-2.4) mg/dl Total Bilirubin (0.2-1) mg/dl AST (15-37) U/L ALT (12-78) U/L Alkaline Phosphatase (45-117) U/L Troponin I (0-0.045) ng/ml Total Protein (6.4-8.2) gm/dl Albumin (3.4-5.0) gm/dl Globulin (2.5-4.0) gm/dl Albumin/Globulin Ratio (0.9-2) Lipase (73-393) U/L Beta-Hydroxybutyric Acd (0.2-2.81) mg/dl Urine Color Urine Appearance (Clear) Urine pH (4.5-7.5) Ur Specific [place] (1.000-1.030) Urine Protein (Negative) Urine Glucose (UA) (Negative) Urine Ketones (Negative) Urine Blood (Negative) Urine Nitrite (Negative) Urine Bilirubin (Negative) Urine Urobilinogen (Negative) Ur Leukocyte Esterase (Negative) COVID-19 Eval Order SARS-CoV-2 (PCR) (Negative) 01/31/21 01/31/21 01/31/21 Range/Units 22:17 21:32 21:32 WBC (4.8-10.8) K/uL RBC (4.7-6.1) M/uL Hgb (14.0-18.0) g/dL POC Hgb (14.0-18.0) g/dl Hct (42-52) % POC Hct (42-52) % MCV (80-100) fL MCH (25-34) pg MCHC (32-36) g/dL RDW Std Deviation (36.4-46.3) fL RDW Coeff of Bhavik (11.5-14.5) % Plt Count (130-400) K/uL MPV (7.4-10.4) fL Immature Gran % (Auto) % Neut % (Auto) % Lymph % (Auto) % [place] % (Auto) % Eos % (Auto) % Baso % (Auto) % Neut # (Auto) (1.4-6.5) K/uL Lymph # (Auto) (1.2-3.4) K/uL [place] # (Auto) (0.11-0.59) K/uL Eos # (Auto) (0-0.5) K/uL Baso # (Auto) (0-0.2) K/uL Immature Gran # (Auto) (0.00-0.02) K/uL VBG pH (7.36-7.41) VBG pCO2 (38-50) mmHg VBG pO2 mmHg VBG HCO3 mmol/L VBG O2 Saturation % VBG Base Excess mEq/L Barometric Pressure mm/Hg POC Sodium (135-144) mmol/L Sodium 136 (136-145) mmol/L POC Potassium (3.3-5.0) mmol/L Potassium 4.0 (3.5-5.1) mmol/L POC Chloride (101-112) mmol/L Chloride 101 (98-107) mmol/L Carbon Dioxide 25 (21-32) mmol/L POC Total CO2 (24-31) mmol/L Anion Gap 9.0 (3-11) POC Anion Gap (16-25) mmol/L POC BUN (7-18) mg/dl BUN 16 (7-18) mg/dl Creatinine 1.03 (0.6-1.4) mg/dl POC Creatinine (0.6-1.3) mg/dl Est Cr Clr Drug Dosing 108.6 ml/min Est GFR ( Amer) 110.1 ml/min Est GFR (Non-Af Amer) 95.0 ml/min BUN/Creatinine Ratio 15.6 (10-20) Glucose 190 H (70-99) mg/dl POC Glucose 206 H (70-99) mg/dl POC Glucose (other) (70-99) mg/dl Estimat Average Glucose Hemoglobin A1c Lactate 2.2 H* (0.4-2.0) mmol/L Calcium 9.0 (8.5-10.1) mg/dl POC Ioniz Calcium Andrew (1.12-1.32) mmol/l Phosphorus 2.2 L D (2.5-4.9) mg/dl Magnesium 2.0 (1.8-2.4) mg/dl Total Bilirubin (0.2-1) mg/dl AST (15-37) U/L ALT (12-78) U/L Alkaline Phosphatase (45-117) U/L Troponin I (0-0.045) ng/ml Total Protein (6.4-8.2) gm/dl Albumin (3.4-5.0) gm/dl Globulin (2.5-4.0) gm/dl Albumin/Globulin Ratio (0.9-2) Lipase (73-393) U/L Beta-Hydroxybutyric Acd (0.2-2.81) mg/dl Urine Color Urine Appearance (Clear) Urine pH (4.5-7.5) Ur Specific [place] (1.000-1.030) Urine Protein (Negative) Urine Glucose (UA) (Negative) Urine Ketones (Negative) Urine Blood (Negative) Urine Nitrite (Negative) Urine Bilirubin (Negative) Urine Urobilinogen (Negative) Ur Leukocyte Esterase (Negative) COVID-19 Eval Order SARS-CoV-2 (PCR) (Negative) 01/31/21 01/31/21 01/31/21 Range/Units 21:13 20:27 19:54 WBC (4.8-10.8) K/uL RBC (4.7-6.1) M/uL Hgb (14.0-18.0) g/dL POC Hgb (14.0-18.0) g/dl Hct (42-52) % POC Hct (42-52) % MCV (80-100) fL MCH (25-34) pg MCHC (32-36) g/dL RDW Std Deviation (36.4-46.3) fL RDW Coeff of Bhavik (11.5-14.5) % Plt Count (130-400) K/uL MPV (7.4-10.4) fL Immature Gran % (Auto) % Neut % (Auto) % Lymph % (Auto) % [place] % (Auto) % Eos % (Auto) % Baso % (Auto) % Neut # (Auto) (1.4-6.5) K/uL Lymph # (Auto) (1.2-3.4) K/uL [place] # (Auto) (0.11-0.59) K/uL Eos # (Auto) (0-0.5) K/uL Baso # (Auto) (0-0.2) K/uL Immature Gran # (Auto) (0.00-0.02) K/uL VBG pH (7.36-7.41) VBG pCO2 (38-50) mmHg VBG pO2 mmHg VBG HCO3 mmol/L VBG O2 Saturation % VBG Base Excess mEq/L Barometric Pressure mm/Hg POC Sodium (135-144) mmol/L Sodium (136-145) mmol/L POC Potassium (3.3-5.0) mmol/L Potassium (3.5-5.1) mmol/L POC Chloride (101-112) mmol/L Chloride (98-107) mmol/L Carbon Dioxide (21-32) mmol/L POC Total CO2 (24-31) mmol/L Anion Gap (3-11) POC Anion Gap (16-25) mmol/L POC BUN (7-18) mg/dl BUN (7-18) mg/dl Creatinine (0.6-1.4) mg/dl POC Creatinine (0.6-1.3) mg/dl Est Cr Clr Drug Dosing ml/min Est GFR ( Amer) ml/min Est GFR (Non-Af Amer) ml/min BUN/Creatinine Ratio (10-20) Glucose (70-99) mg/dl POC Glucose 167 H 158 H 119 H (70-99) mg/dl POC Glucose (other) (70-99) mg/dl Estimat Average Glucose Hemoglobin A1c Lactate (0.4-2.0) mmol/L Calcium (8.5-10.1) mg/dl POC Ioniz Calcium Anderw (1.12-1.32) mmol/l Phosphorus (2.5-4.9) mg/dl Magnesium (1.8-2.4) mg/dl Total Bilirubin (0.2-1) mg/dl AST (15-37) U/L ALT (12-78) U/L Alkaline Phosphatase (45-117) U/L Troponin I (0-0.045) ng/ml Total Protein (6.4-8.2) gm/dl Albumin (3.4-5.0) gm/dl Globulin (2.5-4.0) gm/dl Albumin/Globulin Ratio (0.9-2) Lipase (73-393) U/L Beta-Hydroxybutyric Acd (0.2-2.81) mg/dl Urine Color Urine Appearance (Clear) Urine pH (4.5-7.5) Ur Specific [place] (1.000-1.030) Urine Protein (Negative) Urine Glucose (UA) (Negative) Urine Ketones (Negative) Urine Blood (Negative) Urine Nitrite (Negative) Urine Bilirubin (Negative) Urine Urobilinogen (Negative) Ur Leukocyte Esterase (Negative) COVID-19 Eval Order SARS-CoV-2 (PCR) (Negative) 01/31/21 01/31/21 01/31/21 Range/Units 19:04 17:59 17:55 WBC (4.8-10.8) K/uL RBC (4.7-6.1) M/uL Hgb (14.0-18.0) g/dL POC Hgb (14.0-18.0) g/dl Hct (42-52) % POC Hct (42-52) % MCV (80-100) fL MCH (25-34) pg MCHC (32-36) g/dL RDW Std Deviation (36.4-46.3) fL RDW Coeff of Bhavik (11.5-14.5) % Plt Count (130-400) K/uL MPV (7.4-10.4) fL Immature Gran % (Auto) % Neut % (Auto) % Lymph % (Auto) % [place] % (Auto) % Eos % (Auto) % Baso % (Auto) % Neut # (Auto) (1.4-6.5) K/uL Lymph # (Auto) (1.2-3.4) K/uL [place] # (Auto) (0.11-0.59) K/uL Eos # (Auto) (0-0.5) K/uL Baso # (Auto) (0-0.2) K/uL Immature Gran # (Auto) (0.00-0.02) K/uL VBG pH (7.36-7.41) VBG pCO2 (38-50) mmHg VBG pO2 mmHg VBG HCO3 mmol/L VBG O2 Saturation % VBG Base Excess mEq/L Barometric Pressure mm/Hg POC Sodium (135-144) mmol/L Sodium (136-145) mmol/L POC Potassium (3.3-5.0) mmol/L Potassium (3.5-5.1) mmol/L POC Chloride (101-112) mmol/L Chloride (98-107) mmol/L Carbon Dioxide (21-32) mmol/L POC Total CO2 (24-31) mmol/L Anion Gap (3-11) POC Anion Gap (16-25) mmol/L POC BUN (7-18) mg/dl BUN (7-18) mg/dl Creatinine (0.6-1.4) mg/dl POC Creatinine (0.6-1.3) mg/dl Est Cr Clr Drug Dosing ml/min Est GFR ( Amer) ml/min Est GFR (Non-Af Amer) ml/min BUN/Creatinine Ratio (10-20) Glucose (70-99) mg/dl POC Glucose 164 H 350 H* (70-99) mg/dl POC Glucose (other) (70-99) mg/dl Estimat Average Glucose Hemoglobin A1c Lactate 3.2 H* (0.4-2.0) mmol/L Calcium (8.5-10.1) mg/dl POC Ioniz Calcium Andrew (1.12-1.32) mmol/l Phosphorus (2.5-4.9) mg/dl Magnesium (1.8-2.4) mg/dl Total Bilirubin (0.2-1) mg/dl AST (15-37) U/L ALT (12-78) U/L Alkaline Phosphatase (45-117) U/L Troponin I (0-0.045) ng/ml Total Protein (6.4-8.2) gm/dl Albumin (3.4-5.0) gm/dl Globulin (2.5-4.0) gm/dl Albumin/Globulin Ratio (0.9-2) Lipase (73-393) U/L Beta-Hydroxybutyric Acd (0.2-2.81) mg/dl Urine Color Urine Appearance (Clear) Urine pH (4.5-7.5) Ur Specific [place] (1.000-1.030) Urine Protein (Negative) Urine Glucose (UA) (Negative) Urine Ketones (Negative) Urine Blood (Negative) Urine Nitrite (Negative) Urine Bilirubin (Negative) Urine Urobilinogen (Negative) Ur Leukocyte Esterase (Negative) COVID-19 Eval Order SARS-CoV-2 (PCR) (Negative) 01/31/21 01/31/21 01/31/21 Range/Units 17:31 16:29 16:18 WBC (4.8-10.8) K/uL RBC (4.7-6.1) M/uL Hgb (14.0-18.0) g/dL POC Hgb 19.4 H (14.0-18.0) g/dl Hct (42-52) % POC Hct 57 H (42-52) % MCV (80-100) fL MCH (25-34) pg MCHC (32-36) g/dL RDW Std Deviation (36.4-46.3) fL RDW Coeff of Bhavik (11.5-14.5) % Plt Count (130-400) K/uL MPV (7.4-10.4) fL Immature Gran % (Auto) % Neut % (Auto) % Lymph % (Auto) % [place] % (Auto) % Eos % (Auto) % Baso % (Auto) % Neut # (Auto) (1.4-6.5) K/uL Lymph # (Auto) (1.2-3.4) K/uL [place] # (Auto) (0.11-0.59) K/uL Eos # (Auto) (0-0.5) K/uL Baso # (Auto) (0-0.2) K/uL Immature Gran # (Auto) (0.00-0.02) K/uL VBG pH 7.32 L (7.36-7.41) VBG pCO2 44 (38-50) mmHg VBG pO2 20 mmHg VBG HCO3 22 mmol/L VBG O2 Saturation < 60.0 % VBG Base Excess -4.3 mEq/L Barometric Pressure 733.6 mm/Hg POC Sodium 134 L (135-144) mmol/L Sodium (136-145) mmol/L POC Potassium 4.4 (3.3-5.0) mmol/L Potassium (3.5-5.1) mmol/L POC Chloride 93 L (101-112) mmol/L Chloride (98-107) mmol/L Carbon Dioxide (21-32) mmol/L POC Total CO2 19 L (24-31) mmol/L Anion Gap (3-11) POC Anion Gap 28.0 H (16-25) mmol/L POC BUN 21 H (7-18) mg/dl BUN (7-18) mg/dl Creatinine (0.6-1.4) mg/dl POC Creatinine 0.9 (0.6-1.3) mg/dl Est Cr Clr Drug Dosing ml/min Est GFR ( Amer) ml/min Est GFR (Non-Af Amer) ml/min BUN/Creatinine Ratio (10-20) Glucose (70-99) mg/dl POC Glucose 349 H* (70-99) mg/dl POC Glucose (other) 510 H* (70-99) mg/dl Estimat Average Glucose Hemoglobin A1c Lactate (0.4-2.0) mmol/L Calcium (8.5-10.1) mg/dl POC Ioniz Calcium Andrew 1.17 (1.12-1.32) mmol/l Phosphorus (2.5-4.9) mg/dl Magnesium (1.8-2.4) mg/dl Total Bilirubin (0.2-1) mg/dl AST (15-37) U/L ALT (12-78) U/L Alkaline Phosphatase (45-117) U/L Troponin I (0-0.045) ng/ml Total Protein (6.4-8.2) gm/dl Albumin (3.4-5.0) gm/dl Globulin (2.5-4.0) gm/dl Albumin/Globulin Ratio (0.9-2) Lipase (73-393) U/L Beta-Hydroxybutyric Acd (0.2-2.81) mg/dl Urine Color Urine Appearance (Clear) Urine pH (4.5-7.5) Ur Specific [place] (1.000-1.030) Urine Protein (Negative) Urine Glucose (UA) (Negative) Urine Ketones (Negative) Urine Blood (Negative) Urine Nitrite (Negative) Urine Bilirubin (Negative) Urine Urobilinogen (Negative) Ur Leukocyte Esterase (Negative) COVID-19 Eval Order SARS-CoV-2 (PCR) (Negative) 01/31/21 01/31/21 01/31/21 Range/Units 16:07 16:07 16:07 WBC 11.91 H (4.8-10.8) K/uL RBC 5.80 (4.7-6.1) M/uL Hgb 19.6 H (14.0-18.0) g/dL POC Hgb (14.0-18.0) g/dl Hct 51.9 (42-52) % POC Hct (42-52) % MCV 89.5 (80-100) fL MCH 33.8 (25-34) pg MCHC 37.8 H (32-36) g/dL RDW Std Deviation 40.2 (36.4-46.3) fL RDW Coeff of Bhavik 12.2 (11.5-14.5) % Plt Count 271 (130-400) K/uL MPV 10.2 (7.4-10.4) fL Immature Gran % (Auto) 0.2 % Neut % (Auto) 86.0 % Lymph % (Auto) 7.6 % [place] % (Auto) 5.3 % Eos % (Auto) 0.6 % Baso % (Auto) 0.3 % Neut # (Auto) 10.25 H (1.4-6.5) K/uL Lymph # (Auto) 0.90 L (1.2-3.4) K/uL [place] # (Auto) 0.63 H (0.11-0.59) K/uL Eos # (Auto) 0.07 (0-0.5) K/uL Baso # (Auto) 0.04 (0-0.2) K/uL Immature Gran # (Auto) 0.02 (0.00-0.02) K/uL VBG pH (7.36-7.41) VBG pCO2 (38-50) mmHg VBG pO2 mmHg VBG HCO3 mmol/L VBG O2 Saturation % VBG Base Excess mEq/L Barometric Pressure mm/Hg POC Sodium (135-144) mmol/L Sodium (136-145) mmol/L POC Potassium (3.3-5.0) mmol/L Potassium (3.5-5.1) mmol/L POC Chloride (101-112) mmol/L Chloride (98-107) mmol/L Carbon Dioxide (21-32) mmol/L POC Total CO2 (24-31) mmol/L Anion Gap (3-11) POC Anion Gap (16-25) mmol/L POC BUN (7-18) mg/dl BUN (7-18) mg/dl Creatinine (0.6-1.4) mg/dl POC Creatinine (0.6-1.3) mg/dl Est Cr Clr Drug Dosing ml/min Est GFR ( Amer) ml/min Est GFR (Non-Af Amer) ml/min BUN/Creatinine Ratio (10-20) Glucose (70-99) mg/dl POC Glucose (70-99) mg/dl POC Glucose (other) (70-99) mg/dl Estimat Average Glucose Pending Hemoglobin A1c Pending Lactate 5.2 H* (0.4-2.0) mmol/L Calcium (8.5-10.1) mg/dl POC Ioniz Calcium Andrew (1.12-1.32) mmol/l Phosphorus (2.5-4.9) mg/dl Magnesium (1.8-2.4) mg/dl Total Bilirubin (0.2-1) mg/dl AST (15-37) U/L ALT (12-78) U/L Alkaline Phosphatase (45-117) U/L Troponin I (0-0.045) ng/ml Total Protein (6.4-8.2) gm/dl Albumin (3.4-5.0) gm/dl Globulin (2.5-4.0) gm/dl Albumin/Globulin Ratio (0.9-2) Lipase (73-393) U/L Beta-Hydroxybutyric Acd (0.2-2.81) mg/dl Urine Color Urine Appearance (Clear) Urine pH (4.5-7.5) Ur Specific [place] (1.000-1.030) Urine Protein (Negative) Urine Glucose (UA) (Negative) Urine Ketones (Negative) Urine Blood (Negative) Urine Nitrite (Negative) Urine Bilirubin (Negative) Urine Urobilinogen (Negative) Ur Leukocyte Esterase (Negative) COVID-19 Eval Order SARS-CoV-2 (PCR) (Negative) 01/31/21 01/31/21 01/31/21 Range/Units 16:07 16:06 16:06 WBC (4.8-10.8) K/uL RBC (4.7-6.1) M/uL Hgb (14.0-18.0) g/dL POC Hgb (14.0-18.0) g/dl Hct (42-52) % POC Hct (42-52) % MCV (80-100) fL MCH (25-34) pg MCHC (32-36) g/dL RDW Std Deviation (36.4-46.3) fL RDW Coeff of Bhavik (11.5-14.5) % Plt Count (130-400) K/uL MPV (7.4-10.4) fL Immature Gran % (Auto) % Neut % (Auto) % Lymph % (Auto) % [place] % (Auto) % Eos % (Auto) % Baso % (Auto) % Neut # (Auto) (1.4-6.5) K/uL Lymph # (Auto) (1.2-3.4) K/uL [place] # (Auto) (0.11-0.59) K/uL Eos # (Auto) (0-0.5) K/uL Baso # (Auto) (0-0.2) K/uL Immature Gran # (Auto) (0.00-0.02) K/uL VBG pH (7.36-7.41) VBG pCO2 (38-50) mmHg VBG pO2 mmHg VBG HCO3 mmol/L VBG O2 Saturation % VBG Base Excess mEq/L Barometric Pressure mm/Hg POC Sodium (135-144) mmol/L Sodium 131 L (136-145) mmol/L POC Potassium (3.3-5.0) mmol/L Potassium 4.6 (3.5-5.1) mmol/L POC Chloride (101-112) mmol/L Chloride 93 L (98-107) mmol/L Carbon Dioxide 21 (21-32) mmol/L POC Total CO2 (24-31) mmol/L Anion Gap 18.0 H (3-11) POC Anion Gap (16-25) mmol/L POC BUN (7-18) mg/dl BUN 21 H (7-18) mg/dl Creatinine 1.55 H (0.6-1.4) mg/dl POC Creatinine (0.6-1.3) mg/dl Est Cr Clr Drug Dosing 72.2 ml/min Est GFR ( Amer) 67.2 ml/min Est GFR (Non-Af Amer) 58.0 ml/min BUN/Creatinine Ratio 13.2 (10-20) Glucose 504 H* (70-99) mg/dl POC Glucose (70-99) mg/dl POC Glucose (other) (70-99) mg/dl Estimat Average Glucose Hemoglobin A1c Lactate (0.4-2.0) mmol/L Calcium 9.5 (8.5-10.1) mg/dl POC Ioniz Calcium Andrew (1.12-1.32) mmol/l Phosphorus 3.8 (2.5-4.9) mg/dl Magnesium 2.5 H (1.8-2.4) mg/dl Total Bilirubin 1.3 H (0.2-1) mg/dl AST 20 (15-37) U/L ALT 47 (12-78) U/L Alkaline Phosphatase 148 H (45-117) U/L Troponin I < 0.015 (0-0.045) ng/ml Total Protein 8.6 H (6.4-8.2) gm/dl Albumin 4.6 (3.4-5.0) gm/dl Globulin 4.0 (2.5-4.0) gm/dl Albumin/Globulin Ratio 1.2 (0.9-2) Lipase 76 (73-393) U/L Beta-Hydroxybutyric Acd 51.65 H (0.2-2.81) mg/dl Urine Color Urine Appearance (Clear) Urine pH (4.5-7.5) Ur Specific [place] (1.000-1.030) Urine Protein (Negative) Urine Glucose (UA) (Negative) Urine Ketones (Negative) Urine Blood (Negative) Urine Nitrite (Negative) Urine Bilirubin (Negative) Urine Urobilinogen (Negative) Ur Leukocyte Esterase (Negative) COVID-19 Eval Order Covid19 at [facility] SARS-CoV-2 (PCR) NEGATIVE (Negative) 01/31/21 Range/Units 16:06 WBC (4.8-10.8) K/uL RBC (4.7-6.1) M/uL Hgb (14.0-18.0) g/dL POC Hgb (14.0-18.0) g/dl Hct (42-52) % POC Hct (42-52) % MCV (80-100) fL MCH (25-34) pg MCHC (32-36) g/dL RDW Std Deviation (36.4-46.3) fL RDW Coeff of Bhavik (11.5-14.5) % Plt Count (130-400) K/uL MPV (7.4-10.4) fL Immature Gran % (Auto) % Neut % (Auto) % Lymph % (Auto) % [place] % (Auto) % Eos % (Auto) % Baso % (Auto) % Neut # (Auto) (1.4-6.5) K/uL Lymph # (Auto) (1.2-3.4) K/uL [place] # (Auto) (0.11-0.59) K/uL Eos # (Auto) (0-0.5) K/uL Baso # (Auto) (0-0.2) K/uL Immature Gran # (Auto) (0.00-0.02) K/uL VBG pH (7.36-7.41) VBG pCO2 (38-50) mmHg VBG pO2 mmHg VBG HCO3 mmol/L VBG O2 Saturation % VBG Base Excess mEq/L Barometric Pressure mm/Hg POC Sodium (135-144) mmol/L Sodium (136-145) mmol/L POC Potassium (3.3-5.0) mmol/L Potassium (3.5-5.1) mmol/L POC Chloride (101-112) mmol/L Chloride (98-107) mmol/L Carbon Dioxide (21-32) mmol/L POC Total CO2 (24-31) mmol/L Anion Gap (3-11) POC Anion Gap (16-25) mmol/L POC BUN (7-18) mg/dl BUN (7-18) mg/dl Creatinine (0.6-1.4) mg/dl POC Creatinine (0.6-1.3) mg/dl Est Cr Clr Drug Dosing ml/min Est GFR ( Amer) ml/min Est GFR (Non-Af Amer) ml/min BUN/Creatinine Ratio (10-20) Glucose (70-99) mg/dl POC Glucose (70-99) mg/dl POC Glucose (other) (70-99) mg/dl Estimat Average Glucose Hemoglobin A1c Lactate (0.4-2.0) mmol/L Calcium (8.5-10.1) mg/dl POC Ioniz Calcium Andrew (1.12-1.32) mmol/l Phosphorus (2.5-4.9) mg/dl Magnesium (1.8-2.4) mg/dl Total Bilirubin (0.2-1) mg/dl AST (15-37) U/L ALT (12-78) U/L Alkaline Phosphatase (45-117) U/L Troponin I (0-0.045) ng/ml Total Protein (6.4-8.2) gm/dl Albumin (3.4-5.0) gm/dl Globulin (2.5-4.0) gm/dl Albumin/Globulin Ratio (0.9-2) Lipase (73-393) U/L Beta-Hydroxybutyric Acd (0.2-2.81) mg/dl Urine Color Yellow Urine Appearance Clear (Clear) Urine pH 5.0 (4.5-7.5) Ur Specific [place] 1.034 H (1.000-1.030) Urine Protein Negative (Negative) Urine Glucose (UA) 3+ H (Negative) Urine Ketones 4+ H (Negative) Urine Blood Negative (Negative) Urine Nitrite Negative (Negative) Urine Bilirubin Negative (Negative) Urine Urobilinogen Negative (Negative) Ur Leukocyte Esterase Negative (Negative) COVID-19 Eval Order SARS-CoV-2 (PCR) (Negative) Medications Administered Current Inpatient Medications Acetaminophen (Acetaminophen 325 Mg Tab) 650 mg PO Q4H PRN PRN Reason: Pain or Fever Stop: 03/02/21 20:45 Dextrose (Dextrose 50% 50 Ml Syringe) 25 - 50 ml IV UD PRN; Protocol PRN Reason: Hypoglycemia Protocol Stop: 03/02/21 17:09 Last Admin: 01/31/21 20:14 Dose: 25 ml Documented by: Diphenhydramine HCl (Diphenhydramine Capsule 25 Mg Cap) 25 mg PO HS PRN PRN Reason: Insomnia Stop: 03/02/21 23:35 Glucagon (Glucagon For Inj 1 Mg Vial) 1 mg SQ UD PRN; Protocol PRN Reason: Hypoglycemia Protocol Stop: 03/02/21 17:09 Glucose (Glucose 10 Tabs/Tube) 4 - 8 tabs PO UD PRN; Protocol PRN Reason: Hypoglycemia Protocol Stop: 03/02/21 17:09 Glucose (Glucose 40% Gel 15 Gm Tube) 15 - 30 gm PO UD PRN; Protocol PRN Reason: Hypoglycemia Protocol Stop: 03/02/21 17:09 Insulin Human Regular 250 (units/ Sodium Chloride) 250 mls @ 1.8 mls/hr IV .Q24H GIL; Protocol Stop: 03/02/21 17:14 Last Titration: 02/01/21 03:53 Dose: 1.8 units/hr, 1.8 mls/hr Documented by: Potassium Chloride/Dextrose/Sod Cl (D5w And 1/2nss + 20meq Kcl) 20 meq in 1,000 mls @ 125 mls/hr IV .Q8H GIL Stop: 03/02/21 20:59 Last Admin: 02/01/21 05:22 Dose: 125 mls/hr Documented by: Insulin Aspart (Insulin Aspart 100 Units/Ml 3 Ml Pen) 0 units SC ACHS GIL Stop: 03/02/21 20:59 Last Admin: 01/31/21 21:59 Dose: Not Given Documented by: Miscellaneous (Carbohydrates For Hypoglycemia ) 15 - 30 gm PO UD PRN PRN Reason: Hypoglycemia Protocol Stop: 03/02/21 17:09 Miscellaneous Information (Pharmacy Glycemic Mgmt Consult) 1 ea N/A UD PRN PRN Reason: Consult Stop: 03/02/21 20:51 Saccharomyces Boulardii (Saccharomyces Boulardii 250 Mg Cap) 250 mg PO DAILY [facility] Stop: 03/03/21 08:59 (1) DKA (diabetic ketoacidoses) Diabetes mellitus complication detail: without coma Diabetes mellitus type: type 1 Qualified Code(s): E10.10 - Type 1 diabetes mellitus with ketoacidosis without coma (2) Type 1 diabetes mellitus Diabetes mellitus complication status: with hyperglycemia Qualified Code(s): E10.65 - Type 1 diabetes mellitus with hyperglycemia
[2021-02-01] MEDS: INSULIN ASPART 100 UNITS/ML 3 ML PEN SC SCH ×4 (07:37→20:54)
[2021-02-01] MEDS: SACCHAROMYCES BOULARDII 250 MG CAP PO SCH (08:17)
[2021-02-01] MEDS: SODIUM CHLOR 0.45% + 20MEQ KCL 20 MEQ/1,000 ML BAG IV SCH ×2 (08:43→16:57)
[2021-02-01 08:52] LABS: BUN Creatinine Ratio 14.2 (10-20); Calcium 8.5 mg/dl (8.5-10.1); Creatinine Clr Calc Pharmacy 114.2 ml/min; Est GFR (African American) 116.9 ml/min; Est GFR (Non-African American) 100.9 ml/min; Potassium 3.9 mmol/L (3.5-5.1)
[2021-02-01 08:53] LABS: Phosphorus 2.4 mg/dl (2.5-4.9)
[2021-02-01] MEDS ORDERED: INSULIN GLARGINE SOLOSTAR 100 UNITS/ML 3 ML PEN SC ONE ×2 (09:30)
--- NOTE | 2021-02-01 10:24 | Pharmacy Report ---
Pharmacy Glycemic Short Note 2 - Date of Service February 01, 2021 - Glycemic Short BSG Results (Last 24 hours): 01/31/21 01/31/21 01/31/21 16:07 16:18 17:31 Glucose 504 H* POC Glucose 349 H* POC Glucose (other) 510 H* 01/31/21 01/31/21 01/31/21 17:55 19:04 19:54 Glucose POC Glucose 350 H* 164 H 119 H POC Glucose (other) 01/31/21 01/31/21 01/31/21 20:27 21:13 21:32 Glucose 190 H POC Glucose 158 H 167 H POC Glucose (other) 01/31/21 01/31/21 01/31/21 22:17 23:12 23:32 Glucose 158 H POC Glucose 206 H 156 H POC Glucose (other) 02/01/21 02/01/21 02/01/21 00:31 01:19 02:20 Glucose POC Glucose 131 H 135 H 111 H POC Glucose (other) 02/01/21 02/01/21 02/01/21 02:36 03:43 04:36 Glucose POC Glucose 116 H 176 H 243 H POC Glucose (other) 02/01/21 02/01/21 02/01/21 05:35 05:45 06:34 Glucose 222 H POC Glucose 211 H 205 H POC Glucose (other) 02/01/21 02/01/21 02/01/21 07:33 08:20 08:36 Glucose 219 H POC Glucose 262 H 218 H POC Glucose (other) 02/01/21 09:28 Glucose POC Glucose 198 H POC Glucose (other) OUTPATIENT ANTIDIABETIC REGIMEN: * Novolog insulin pump * Basal rate: 1 unit/hr (24 units/day) * Sensitivity factor: 50 * Carb ratio: 11 * HbA1c pending ASSESSMENT: * RANDA is a 35 year old male with T1DM who presented on 01/31 with DKA secondary to insulin pump failure * Per patient, he has been having issues with insulin pump and just recently acquired new pump. The plan is to transition to new pump as soon as possible. * This will likely need to be done with managing provider in outpatient setting upon discharge ([facility] in [place]) * May require discharge with temporary SC basal/bolus until pump can be set up * Labs much improved overnight with IV insulin infusion and IV fluids * A -> 6 * CO2: 19 -> 27 * Given resolution of DKA, will likely transition off insulin infusion this afternoon/evening * Diet ordered this morning - will add fixed carb ratio of 11 based on pump settings PLAN FOR INPATIENT GLYCEMIC CONTROL: * director of safety and security able to program new insulin pump for patient - will plan to restart pump tomorrow morning * Basal insulin * Lantus 30 units SQ x 1 this morning * Bolus insulin - once IV insulin infusion discontinued, will utilize fixed carb ratio described below while on infusion * NovoLog per scale ACHS or Q6hrs while NPO * Goal Range: Low 90 mg/dL - High 140 mg/dL * Correction Factor: 50 mg/dL/unit * Nutritional / Prandial insulin per carb ratio of 1 unit per 11 grams CHO consumed PLAN FOR DISCHARGE: * Patient to be transitioned to new insulin pump prior to discharge * [facility]
--- NOTE | 2021-02-01 10:36 | Electrocardiogram Report ---
Test Reason : Blood Pressure : / mmHG Vent. Rate : 080 BPM Atrial Rate : 080 BPM P-R Int : 150 ms QRS Dur : 084 ms QT Int : 392 ms P-R-T Axes : 064 083 065 degrees QTc Int : 452 ms Poor data quality, interpretation may be adversely affected Sinus rhythm with marked sinus arrhythmia Otherwise normal ECG When compared with ECG of 08-JUL-2020 15:53, No significant change was found Confirmed by Randy Bray ([id number]) on 02/01/2021 10:36:02 AM Referred By: REFERRED SELF Confirmed By:Randy Bray
[2021-02-01] MEDS: NICOTINE 14 MG/24 HR PATCH TD SCH (13:47)
--- NOTE | 2021-02-01 14:25 | Psychiatric Consultation ---
Date of Consultation February 01, 2021 Impression / Recommendations Impression Patient was spoken to about his potential ADHD diagnosis. Provided with outpatient resources as well as information on the diagnosis. Patient adamantly denies any suicidal or homicidal ideation. No further psychiatric management necessary at this time. Risk Factors Assessment Male: Yes : Yes Previous Attempt: Yes Hopelessness: No Protective Factors Assessment Amish Beliefs: Yes : Yes Responsible for Young Children: Yes Stable Relationships: Yes Supportive Family: Yes Good Rapport with Provider: Yes Psych History Chief Complaint "I think I have ADHD". History of Present Illness As per psychiatric liaison notes " Met with patient after receiving notification of need for suicide risk assessment. Patient cooperative, pleasant and very talkative. Patient reports having increased stress in the past "6 months". Patient lives with his fiance in an apartment in [place]. They recently moved (within the last few days) after being evicted from their previous apartment in [place]. Patient reports the landlord was failing to fix several issues therefore, patient was not paying rent. This went to court and the mop machine operator rolled in the landlords favor, patient had to move within 10 days. Patient's fiance's grandfather (who raised her) during the time of their housing issues; this has caused some stress in their relationship. He was diagnosed with type 1 diabetes at age 30, which has been stressful. Patient reports being raised as Jehovah Witness, father at age 14. He reports relationship discord with his mother, r/t him not practicing as a Jehovah Witness. Patient has 4 daughters (1 set of twins) and 1 son, the oldest being 9. He only has contact with his 9 year old daughter. He endorses increased energy, high anxiety, depression, difficulty sleeping, poor focus/concentration (trouble completing tasks), and difficulty with memory at times. Patient denies active SI, has passive wishes at times, no plan/intent. He does have a history of "numerous" suicide attempts by hanging. History of inpatient treatment x 2 at [facility], last in 2018. Patient does not recall his psychiatric diagnosis and is convinced he has ADHD and possibly au tism. He attributes these thoughts to his oldest daughters recent diagnosis of Autism, stating "everything that my daughter's mother describes, is me to a oh, since a young child. When my teachers had a meeting with my mom, she refused to treat it". Patient denies having psych providers and is interested in referrals. He reports reaching out to his PCP @ [facility] without response. He is undecided about medication recommendations d/t past trials causing "terrible side effects". However, he expressed interested in speaking with the psychiatrist here. Patient reports self medicating with marijuana - frequent, almost daily use. Reports helping with anxiety and sleep. Denies other substance use. Rounded on patient, provided purple resource book for outpatient providers. He reports that he has never been diagnosed with ADHD, states he is convinced that he has this since his daughter was diagnosed and displays the same symptoms. His previous admission at [facility] he was given diagnosis of anxiety and verbalized disappointment that the psychiatrist would not discuss the possibility of ADHD. He reports that he is also looking to find a new PCP due to lack of help with his diagnosis . He has been trying to get established with a psychiatrist to seek treatment for this. He denies needing anything else from our service at this time, encouraged to reach out with any questions/concerns." Patient evaluated this afternoon. Adamantly denying any suicidal or homicidal ideation. No psychosis evident at this time. No manic behavior evident at this time. Patient is complaining of potential ADHD diagnosis, was informed of the lengthy evaluation necessary for such diagnosis as well as the ability for him to seek treatment for any potential ADHD on an outpatient basis. Patient in [facility]. Patient was also provided resources for outpatient psychiatry, and educated as to how marijuana use may affect his current symptoms. Allergies Allergy/AdvReac Type Severity Reaction Status Date / Time methyl salicylate Allergy Unknown HIVES, Verified 01/31/21 17:27 "FEELS LIKE FIRE ON MY SKIN" codeine AdvReac Intermediate BECOMES Verified 01/31/21 17:27 VERY AGGRESSIVE Home Medications Medication Instructions Recorded Confirmed Type dicyclomine 10 mg PO Q6H PRN 04/14/20 01/31/21 History insulin aspart U-100 See Rx Instructions .ROUTE .COMPLEX 07/08/20 01/31/21 History tadalafil 5 mg PO QAM 01/31/21 01/31/21 History Personal History Beliefs That Will Affect Care: None Patient History Medical History Diabetes Disorder of male genital organs, unspecified DKA (diabetic ketoacidoses) Epigastric pain GERD (gastroesophageal reflux disease) Hx of psoriasis Hypertension Major depressive disorder, recurrent episode Rectal/anal hemorrhage Sebaceous cyst Suicidal ideation Tobacco abuse disorder Surgical History No pertinent past surgical history Family History Father Cardiovascular disease Diabetes Mother Diabetes Other No significant family history Social History Smoking Status: Current every day smoker Tobacco Type: Cigarettes Do You Dip or Chew Tobacco: No; Tobacco Cessation Education Requested by Patient: No Hx Alcohol Use: Yes Hx Substance Use: Yes Non-Prescribed Medications: Marijuana Preferred Language: Cymro Communication Ability: Effective Intermediate Accountant Required: No Beliefs That Will Affect Care: None marital status: Single Current Living Situation: Significant Other current occupational status: employed Other Information That Helps Us Care for You: No Feels Safe at Home: Yes Safety Concerns: Feels Safe At This Time Assistive Devices: None Assistive Devices Comment: insulin pump Physical Exam Psychiatric: Orientation: alert and oriented x 3 Apperance: appropriately dressed Eye Contact: good eye contact Motor Behavior: no abnormal motor movements Speech: normal rate/rhythm/volume of speech Affect: euthymic affect Mood: no depressed mood Thought Process: goal directed thought process Thought Content: no delusions and no ideas of reference Suicidal Thoughts: denies suicidal thoughts Homicidal Thoughts: denies homicidal thoughts Hallucinations: no auditory hallucinations Cognition: recent memory grossly intact Estimated Intelligence: average estimated intelligence Insight: + fair insight Judgement: + fair judgement Vital Signs (Past 24 Hours): Last Vital Signs Temp 36.9 C 02/01/21 11:39 Pulse 93 H 02/01/21 11:39 Resp 16 02/01/21 11:39 BP 119/74 02/01/21 11:39 Pulse Ox 97 02/01/21 11:39 Review of Systems All systems reviewed & are unremarkable except as noted in HPI & below Results & Data (PSY) Medications Administered Dextrose (Dextrose 50% 50 Ml Syringe) 25 - 50 ml IV UD PRN; Protocol PRN Reason: Hypoglycemia Protocol Stop: 03/02/21 17:09 Last Admin: 01/31/21 20:14 Dose: 25 ml Documented by: [id number] Insulin Human Regular 250 (units/ Sodium Chloride) 250 mls @ 2 mls/hr IV .Q24H GIL; Protocol Stop: 03/02/21 17:14 Last Titration: 02/01/21 13:00 Dose: 2 units/hr, 2 mls/hr Documented by: [id number] Cosigned by: [id number] Titration: 02/01/21 12:13 Dose: 1 units/hr, 1 mls/hr Documented by: [id number] Cosigned by: [id number] Titration: 02/01/21 11:30 Dose: 0 units/hr, 0 mls/hr Documented by: [id number] Cosigned by: [id number] Titration: 02/01/21 10:33 Dose: 2.6 units/hr, 2.6 mls/hr Documented by: [id number] Cosigned by: [id number] Titration: 02/01/21 09:30 Dose: 2.6 units/hr, 2.6 mls/hr Documented by: [id number] Cosigned by: [id number] Titration: 02/01/21 08:37 Dose: 2.6 units/hr, 2.6 mls/hr Documented by: [id number] Cosigned by: [id number] Titration: 02/01/21 07:37 Dose: 2.6 units/hr, 2.6 mls/hr Documented by: [id number] Cosigned by: [id number] Titration: 02/01/21 03:53 Dose: 1.8 units/hr, 1.8 mls/hr Documented by: [id number] Cosigned by: [id number] Titration: 02/01/21 02:20 Dose: 0 units/hr, 0 mls/hr Documented by: [id number] Cosigned by: [id number] Titration: 02/01/21 00:32 Dose: 3 units/hr, 3 mls/hr Documented by: [id number] Cosigned by: [id number] Titration: 01/31/21 23:40 Dose: 3.7 units/hr, 3.7 mls/hr Documented by: [id number] Cosigned by: [id number] Titration: 01/31/21 21:25 Dose: 4.6 units/hr, 4.6 mls/hr Documented by: [id number] Cosigned by: [id number] Titration: 01/31/21 20:00 Dose: 0 units/hr, 0 mls/hr Documented by: [id number] Cosigned by: [id number] Titration: 01/31/21 19:47 Dose: 4.6 units/hr, 4.6 mls/hr Documented by: [id number] Cosigned by: [id number] Titration: 01/31/21 19:17 Dose: 0 units/hr, 0 mls/hr Documented by: [id number] Cosigned by: [id number] Admin: 01/31/21 17:52 Dose: 7.6 units/hr, 7.6 mls/hr Documented by: [id number] Cosigned by: [id number] Potassium Chloride/Sodium Chloride (1/2 Nss + 20meq Kcl 1000ml) 20 meq in 1,000 mls @ 125 mls/hr IV .Q8H GIL Stop: 03/03/21 07:59 Last Admin: 02/01/21 08:43 Dose: 125 mls/hr Documented by: [id number] Insulin Aspart (Insulin Aspart 100 Units/Ml 3 Ml Pen) 0 units SC ACHS GIL Stop: 03/02/21 20:59 Last Admin: 02/01/21 12:21 Dose: 6 units Documented by: [id number] Cosigned by: [id number] Admin: 02/01/21 07:37 Dose: Not Given Documented by: [id number] Admin: 01/31/21 21:59 Dose: Not Given Documented by: [id number] Nicotine (Nicotine 14 Mg/24 Hr Patch) 14 mg TD QAM GIL Stop: 03/03/21 13:14 Last Admin: 02/01/21 13:47 Dose: 14 mg Documented by: [id number] Saccharomyces Boulardii (Saccharomyces Boulardii 250 Mg Cap) 250 mg PO DAILY GIL Stop: 03/03/21 08:59 Last Admin: 02/01/21 08:17 Dose: 250 mg Documented by: [id number] Coding Level of Care Code 60000 U Intl Hosp Care Lvl 2
[2021-02-01] MEDS ORDERED: DC IV INSULIN INFUSION 1 EA DEVI ONE (16:00)
[2021-02-02] MEDS: SODIUM CHLOR 0.45% + 20MEQ KCL 20 MEQ/1,000 ML BAG IV SCH ×2 (00:25→07:41)
[2021-02-02] MEDS: INSULIN ASPART 100 UNITS/ML 3 ML PEN SC SCH ×2 (00:25→04:27)
[2021-02-02 07:13] LABS: Hemoglobin 15.7 g/dL (14.0-18.0); Mean Corpuscular Hemoglobin 32.1 pg (25-34); Mean Corpuscular Hgb Conc 36.5 g/dL (32-36); Mean Corpuscular Volume 87.9 fL (80-100); Mean Platelet Volume 9.5 fL (7.4-10.4); Platelet Count 164 K/uL (130-400); RDW Coefficient of Variation 12.4 % (11.5-14.5); RDW Standard Deviation 39.7 fL (36.4-46.3); Red Blood Count 4.89 M/uL (4.7-6.1); White Blood Count 5.05 K/uL (4.8-10.8)
[2021-02-02 07:22] LABS: Estimated Average Glucose 255 mg/dl; Hemoglobin A1C 10.5 % (4.5-5.6)
[2021-02-02] MEDS ORDERED: Nursing to Pharmacy Communication ONE (07:30)
[2021-02-02] MEDS ORDERED: INSULIN ASPART 100 UNITS/ML VIAL SC PRN (07:30)
[2021-02-02] MEDS: NovoLOG INSULIN PUMP SCH ×3 (07:40→16:55)
[2021-02-02] MEDS: NICOTINE 14 MG/24 HR PATCH TD SCH (07:42)
[2021-02-02] MEDS: SACCHAROMYCES BOULARDII 250 MG CAP PO SCH (07:42)
--- NOTE | 2021-02-02 08:33 | Hospitalist Progress Note ---
Date of Service February 02, 2021 Assessment & Plan (1) DKA (diabetic ketoacidoses): (2) Type 1 diabetes mellitus: Pt is a 35 y/o M with PMH DM I with insulin pump, depression presented to ER with complaint of nausea and vomiting and insulin pump falling off last night. edema, rashes, urinary symptoms. In ER patient afebrile, P: 115, BP: 163/99, R: 20, O2 sat: 99 on RA. Glucose 504, beta hydroxybutyric acid: 51, K: 4.6, ma.5, CO2: 21, anion gap: 18, VBG pH: 7.3 In ER was given 2 L NSS and insulin drip was started with repeat BSG of 350 IVF, Insulin Drip pharmacy glycemic consult Repeat BMP, phosphorus and magnesium labs NPO until acidosis resolved Pt will need to keep outpatient glycemic pharmacy follow up for insulin pump management 02/01 Currently patient is feeling much better, on IV fluids and IV insulin, however anion gap is closed, and will start patient on subcu insulin, and clear liquid diet. Clinically much improved, without any nausea or vomiting. His new pump was also programmed by a pharmacist. 02/02 Patient's new pump was hooked up however his blood sugars are now again elevated. We will try to change the site for the pump. Patient wants to be discharged later today regardless if his new pump is fully functional or not. He has insulin at home. He will be also getting insulin pens from the hospital that he has been using. Glycemic pharmacy aware. Patient will need to follow-up closely with [facility] after discharge, patient is in full agreement with that. (3) Elevated lactic acid level: lactate 5, UA unremarkable for infection, CXR: No infiltrate Probable secondary to DKA, dehydration Repeat lactate 3.2 -> 1.[address] abdomen/pelvis secondary to diarrhea IMPRESSION: 1. No urinary calculi or hydronephrosis. 2. Normal appendix. No bowel obstruction. A few colonic diverticula without evidence for acute diverticulitis. Elevated lactic acid resolved (4) JESSIE (acute kidney injury): Cr: 1.5. GFR: 58. Baseline Cr: 1.0 with GFR>60 - secondary to dehydration IV fluids Monitor renal functions, avoid nephrotoxic agents when possible JESSIE now resolved Cr 0.98 (5) Diarrhea: Reports 10 or more episodes of loose stools/day (on a good day) for the past year Obtain C. difficile, stool culture, ova parasites, Giardia Start probiotic CT abdomen pelvis unremarkable May need GI consult or outpatient GI follow-up Patient was unable to provide stool sample on admission initially. After he started diet yesterday, patient had a bowel movement, 1 bowel movement also overnight when he was sleeping. C. difficile is negative. Other stool studies are pending. Discussed in detail that he will need to follow-up closely with GI/family me urmila after discharge. Patient is in full agreement with that. Depression - on admission identified as high risk/history of suicidal ideations/suicidal attempts -Was seen by psychiatry nurse overnight, psychiatry consulted - list of providers was given to the patient -Patient interested ADHD testing, may be done as outpatient DVT Prophylaxis -SCDs Full Code Follows with Dr Orellana for routine care Admission and Anticipated Discharge Date Admission Date: January 31, 2021 Subjective Patient seen in follow-up of DKA Patient feels well, no fevers chills, chest pain shortness of breath, abdominal pain, nausea or vomiting Patient's new pump was hooked up this morning, however his blood sugars are now elevated again Plan for changing site for the pump Patient does want to be discharged later today regardless if his pump is working or not. He has insulin at home. Discussed that we will try to have his new pump working properly and if we continue to have difficulties, he will need to then use his home insulin. He will also get insulin pens that he was using here in the hospital. Discussed in detail close follow-up with [facility] clinic which he is in full agreement with. Patient on admission reported frequent diarrhea, he did not have any bowel movement initially on admission though. After he started eating yesterday, he did have a bowel movement also 1 overnight when he was sleeping. C. difficile is negative. Other stool studies are still pending. Patient was informed about that. Close follow-up with GI/family medicine strongly recommended, and patient is in agreement. Review of Systems Review of Systems: All systems reviewed & are unremarkable except as noted in HPI & below Constitutional: no fever and no chills Respiratory: no cough and no dyspnea Cardiovascular: no chest pain and no palpitations Gastrointestinal: no abdominal pain, no nausea and no vomiting Physical Exam Constitutional: WD/WN, vitals as above no acute distress Eyes: PERRL, conjunctivae normal, anicteric sclerae ENMT: external ear and nose normal, oropharynx normal Neck: trachea midline, no thyromegaly Respiratory: normal respiratory effort, lungs clear to auscultation Cardiovascular: RRR, no murmur, no edema Chest (Breasts): Chest: normal inspection of chest Gastrointestinal (Abdomen): Inspection/Auscultation: abdomen normal to inspection and normal bowel sounds; abdomen not distended Percussion/Palpation: abdomen soft; no guarding and abdomen not rigid Musculoskeletal: no cyanosis or clubbing, extremities motor strength 5/5 Skin: no rashes, warm and dry Neurologic: PERRL, EOMI, accommodation nl, no face palsy, no dysarthria Psychiatric: A+Ox3, euthymic affect Results & Data Results & Data ([facility]) Vital Signs (Past 12 Hours) Vital Signs Temp Pulse Resp BP Pulse Ox 02/02/21 07:50 36.3 C L 89 20 121/82 98 02/02/21 03:43 37.4 C 79 18 135/80 97 02/01/21 23:12 37.0 C 81 17 124/80 96 Laboratory Results 02/02/21 02/02/21 02/02/21 Range/Units 07:33 06:23 04:04 WBC 5.05 (4.8-10.8) K/uL RBC 4.89 (4.7-6.1) M/uL Hgb 15.7 D (14.0-18.0) g/dL Hct 43.0 (42-52) % MCV 87.9 (80-100) fL MCH 32.1 (25-34) pg MCHC 36.5 H (32-36) g/dL RDW Std Deviation 39.7 (36.4-46.3) fL RDW Coeff of Bhavik 12.4 (11.5-14.5) % Plt Count 164 (130-400) K/uL MPV 9.5 (7.4-10.4) fL Sodium (136-145) mmol/L Potassium (3.5-5.1) mmol/L Chloride (98-107) mmol/L Carbon Dioxide (21-32) mmol/L Anion Gap (3-11) BUN (7-18) mg/dl Creatinine (0.6-1.4) mg/dl Est Cr Clr Drug Dosing ml/min Est GFR ( Amer) ml/min Est GFR (Non-Af Amer) ml/min BUN/Creatinine Ratio (10-20) Glucose (70-99) mg/dl POC Glucose 284 H 220 H (70-99) mg/dl Estimat Average Glucose mg/dl Hemoglobin A1c (4.5-5.6) % Calcium (8.5-10.1) mg/dl Phosphorus (2.5-4.9) mg/dl Magnesium (1.8-2.4) mg/dl 02/02/21 02/01/21 02/01/21 Range/Units 00:01 23:58 20:22 WBC (4.8-10.8) K/uL RBC (4.7-6.1) M/uL Hgb (14.0-18.0) g/dL Hct (42-52) % MCV (80-100) fL MCH (25-34) pg MCHC (32-36) g/dL RDW Std Deviation (36.4-46.3) fL RDW Coeff of Bhavik (11.5-14.5) % Plt Count (130-400) K/uL MPV (7.4-10.4) fL Sodium (136-145) mmol/L Potassium (3.5-5.1) mmol/L Chloride (98-107) mmol/L Carbon Dioxide (21-32) mmol/L Anion Gap (3-11) BUN (7-18) mg/dl Creatinine (0.6-1.4) mg/dl Est Cr Clr Drug Dosing ml/min Est GFR ( Amer) ml/min Est GFR (Non-Af Amer) ml/min BUN/Creatinine Ratio (10-20) Glucose (70-99) mg/dl POC Glucose 224 H 237 H 194 H (70-99) mg/dl Estimat Average Glucose mg/dl Hemoglobin A1c (4.5-5.6) % Calcium (8.5-10.1) mg/dl Phosphorus (2.5-4.9) mg/dl Magnesium (1.8-2.4) mg/dl 02/01/21 02/01/21 02/01/21 Range/Units 16:14 14:58 14:08 WBC (4.8-10.8) K/uL RBC (4.7-6.1) M/uL Hgb (14.0-18.0) g/dL Hct (42-52) % MCV (80-100) fL MCH (25-34) pg MCHC (32-36) g/dL RDW Std Deviation (36.4-46.3) fL RDW Coeff of Bhavik (11.5-14.5) % Plt Count (130-400) K/uL MPV (7.4-10.4) fL Sodium (136-145) mmol/L Potassium (3.5-5.1) mmol/L Chloride (98-107) mmol/L Carbon Dioxide (21-32) mmol/L Anion Gap (3-11) BUN (7-18) mg/dl Creatinine (0.6-1.4) mg/dl Est Cr Clr Drug Dosing ml/min Est GFR ( Amer) ml/min Est GFR (Non-Af Amer) ml/min BUN/Creatinine Ratio (10-20) Glucose (70-99) mg/dl POC Glucose 99 156 H 199 H (70-99) mg/dl Estimat Average Glucose mg/dl Hemoglobin A1c (4.5-5.6) % Calcium (8.5-10.1) mg/dl Phosphorus (2.5-4.9) mg/dl Magnesium (1.8-2.4) mg/dl 02/01/21 02/01/21 02/01/21 Range/Units 13:01 13:00 12:00 WBC (4.8-10.8) K/uL RBC (4.7-6.1) M/uL Hgb (14.0-18.0) g/dL Hct (42-52) % MCV (80-100) fL MCH (25-34) pg MCHC (32-36) g/dL RDW Std Deviation (36.4-46.3) fL RDW Coeff of Bhavik (11.5-14.5) % Plt Count (130-400) K/uL MPV (7.4-10.4) fL Sodium (136-145) mmol/L Potassium (3.5-5.1) mmol/L Chloride (98-107) mmol/L Carbon Dioxide (21-32) mmol/L Anion Gap (3-11) BUN (7-18) mg/dl Creatinine (0.6-1.4) mg/dl Est Cr Clr Drug Dosing ml/min Est GFR ( Amer) ml/min Est GFR (Non-Af Amer) ml/min BUN/Creatinine Ratio (10-20) Glucose (70-99) mg/dl POC Glucose 276 H 273 H 164 H (70-99) mg/dl Estimat Average Glucose mg/dl Hemoglobin A1c (4.5-5.6) % Calcium (8.5-10.1) mg/dl Phosphorus (2.5-4.9) mg/dl Magnesium (1.8-2.4) mg/dl 02/01/21 02/01/21 02/01/21 Range/Units 11:27 10:30 09:28 WBC (4.8-10.8) K/uL RBC (4.7-6.1) M/uL Hgb (14.0-18.0) g/dL Hct (42-52) % MCV (80-100) fL MCH (25-34) pg MCHC (32-36) g/dL RDW Std Deviation (36.4-46.3) fL RDW Coeff of Bhavik (11.5-14.5) % Plt Count (130-400) K/uL MPV (7.4-10.4) fL Sodium (136-145) mmol/L Potassium (3.5-5.1) mmol/L Chloride (98-107) mmol/L Carbon Dioxide (21-32) mmol/L Anion Gap (3-11) BUN (7-18) mg/dl Creatinine (0.6-1.4) mg/dl Est Cr Clr Drug Dosing ml/min Est GFR ( Amer) ml/min Est GFR (Non-Af Amer) ml/min BUN/Creatinine Ratio (10-20) Glucose (70-99) mg/dl POC Glucose 122 H 173 H 198 H (70-99) mg/dl Estimat Average Glucose mg/dl Hemoglobin A1c (4.5-5.6) % Calcium (8.5-10.1) mg/dl Phosphorus (2.5-4.9) mg/dl Magnesium (1.8-2.4) mg/dl 05/02/01/21 01/31/21 Range/Units 08:36 08:20 16:07 WBC (4.8-10.8) K/uL RBC (4.7-6.1) M/uL Hgb (14.0-18.0) g/dL Hct (42-52) % MCV (80-100) fL MCH (25-34) pg MCHC (32-36) g/dL RDW Std Deviation (36.4-46.3) fL RDW Coeff of Bhavik (11.5-14.5) % Plt Count (130-400) K/uL MPV (7.4-10.4) fL Sodium 136 (136-145) mmol/L Potassium 3.9 (3.5-5.1) mmol/L Chloride 104 (98-107) mmol/L Carbon Dioxide 25 (21-32) mmol/L Anion Gap 7.0 (3-11) BUN 14 (7-18) mg/dl Creatinine 0.98 (0.6-1.4) mg/dl Est Cr Clr Drug Dosing 114.2 ml/min Est GFR ( Amer) 116.9 ml/min Est GFR (Non-Af Amer) 100.9 ml/min BUN/Creatinine Ratio 14.2 (10-20) Glucose 219 H (70-99) mg/dl POC Glucose 218 H (70-99) mg/dl Estimat Average Glucose 255 mg/dl Hemoglobin A1c 10.5 H (4.5-5.6) % Calcium 8.5 (8.5-10.1) mg/dl Phosphorus 2.4 L (2.5-4.9) mg/dl Magnesium 2.0 (1.8-2.4) mg/dl Medications Administered Current Inpatient Medications Acetaminophen (Acetaminophen 325 Mg Tab) 650 mg PO Q4H PRN PRN Reason: Pain or Fever Stop: 03/02/21 20:45 Dextrose (Dextrose 50% 50 Ml Syringe) 25 - 50 ml IV UD PRN; Protocol PRN Reason: Hypoglycemia Protocol Stop: 03/02/21 17:09 Last Admin: 01/31/21 20:14 Dose: 25 ml Documented by: Diphenhydramine HCl (Diphenhydramine Capsule 25 Mg Cap) 25 mg PO HS PRN PRN Reason: Insomnia Stop: 03/02/21 23:35 Glucagon (Glucagon For Inj 1 Mg Vial) 1 mg SQ UD PRN; Protocol PRN Reason: Hypoglycemia Protocol Stop: 03/02/21 17:09 Glucose (Glucose 10 Tabs/Tube) 4 - 8 tabs PO UD PRN; Protocol PRN Reason: Hypoglycemia Protocol Stop: 03/02/21 17:09 Glucose (Glucose 40% Gel 15 Gm Tube) 15 - 30 gm PO UD PRN; Protocol PRN Reason: Hypoglycemia Protocol Stop: 03/02/21 17:09 Potassium Chloride/Sodium Chloride (1/2 Nss + 20meq Kcl 1000ml) 20 meq in 1,000 mls @ 125 mls/hr IV .Q8H [facility] Stop: 03/03/21 07:59 Last Admin: 02/02/21 07:41 Dose: 125 mls/hr Documented by: Insulin Aspart (Novolog Insulin Pump) 1 ea N/A ACHS [facility]; Protocol Stop: 03/04/21 07:29 Insulin Aspart (Insulin Aspart 100 Units/Ml Vial) 0 units SC PRN PRN PRN Reason: PUMP REFILL Stop: 03/04/21 07:29 Miscellaneous (Carbohydrates For Hypoglycemia ) 15 - 30 gm PO UD PRN PRN Reason: Hypoglycemia Protocol Stop: 03/02/21 17:09 Miscellaneous (Remove Nicoderm Patch) 1 ea N/A DAILY@[id number] [facility] Stop: 03/04/21 08:58 Last Admin: 02/02/21 07:46 Dose: 1 ea Documented by: Miscellaneous Information (Pharmacy Glycemic Mgmt Consult) 1 ea N/A UD PRN PRN Reason: Consult Stop: 03/02/21 20:51 Nicotine (Nicotine 14 Mg/24 Hr Patch) 14 mg TD QAM [facility] Stop: 03/03/21 13:14 Last Admin: 02/02/21 07:42 Dose: 14 mg Documented by: Saccharomyces Boulardii (Saccharomyces Boulardii 250 Mg Cap) 250 mg PO DAILY [facility] Stop: 03/03/21 08:59 Last Admin: 02/02/21 07:42 Dose: 250 mg Documented by: (1) DKA (diabetic ketoacidoses) Diabetes mellitus complication detail: without coma Diabetes mellitus type: type 1 Qualified Code(s): E10.10 - Type 1 diabetes mellitus with ketoacidosis without coma (2) Type 1 diabetes mellitus Diabetes mellitus complication status: with hyperglycemia Qualified Code(s): E10.65 - Type 1 diabetes mellitus with hyperglycemia
--- NOTE | 2021-02-02 10:37 | Pharmacy Report ---
Pharmacy Glycemic Short Note 2 - Date of Service February 02, 2021 - Glycemic Short BSG Results (Last 24 hours): 02/01/21 02/01/21 02/01/21 11:27 12:00 13:00 POC Glucose 122 H 164 H 273 H 02/01/21 02/01/21 02/01/21 13:01 14:08 14:58 POC Glucose 276 H 199 H 156 H 02/01/21 02/01/21 02/01/21 16:14 20:22 23:58 POC Glucose 99 194 H 237 H 02/02/21 02/02/21 02/02/21 00:01 04:04 07:33 POC Glucose 224 H 220 H 284 H OUTPATIENT ANTIDIABETIC REGIMEN: * Novolog insulin pump * Basal rate: 1 unit/hr (24 units/day) * Sensitivity factor: 50 * Carb ratio: 11 * HbA1c pending ASSESSMENT: 02/02 * Pt met with DM educator yesterday - She was able to update his insulin pump with his new settings. * Pt had received his total daily basal insulin with Lantus yesterday morning therefore resuming pump deferred to this morning * Pt agreeable to resuming his insulin pump 02/01 * MC is a 35 year old male with T1DM who presented on 01/31 with DKA secondary to insulin pump failure * Per patient, he has been having issues with insulin pump and just recently acquired new pump. The plan is to transition to new pump as soon as possible. * This will likely need to be done with managing provider in outpatient setting upon discharge ([facility] in [place]) * May require discharge with temporary SC basal/bolus until pump can be set up * Labs much improved overnight with IV insulin infusion and IV fluids * A -> 6 * CO2: 19 -> 27 * Given resolution of DKA, will likely transition off insulin infusion this afternoon/evening * Diet ordered this morning - will add fixed carb ratio of 11 based on pump settings PLAN FOR INPATIENT GLYCEMIC CONTROL: Pt is to manage BSGs with insulin pump per outpatient settings. * RN will have patient read and sign agreement [id number] Insulin Pump Therapy Patient Agreement. * RN will provide and explain form [id number] Flowsheet for Patient * Patient will document their insulin dose given on [id number] which is kept at the bedside, available to caregivers upon request, and which becomes part of the permanent medical record. If at any time the patients condition evidences that he/she is not able to manage the insulin pump (i.e. frequent hypo/hyperglycemia) Pharmacy will assume glycemic control by discontinuing the pump & managing with SQ basal bolus insulin regimen for the interim. PLAN FOR DISCHARGE: * Patient to be transitioned to new insulin pump prior to discharge * Ensure prompt follow-up with [facility]
[2021-02-02 11:00] LABS: BUN Creatinine Ratio 10.9 (10-20); Calcium 8.5 mg/dl (8.5-10.1); Creatinine Clr Calc Pharmacy 124.3 ml/min; Est GFR (African American) 129.6 ml/min; Est GFR (Non-African American) 111.8 ml/min; Potassium 4.3 mmol/L (3.5-5.1)
[2021-02-02] MEDS ORDERED: INSULIN ASPART 100 UNITS/ML 3 ML PEN SC ONE ×2 (12:00→14:30)
--- NOTE | 2021-02-02 18:26 | Discharge Summary ---
Date of Service February 02, 2021 Admission HPI Per Admitting Provider Pt is 35 y/o M with PMH DM I with insulin pump, depression presented to ER with complaint of nausea and vomiting and insulin pump falling off. Patient reports his been having trouble with his insulin pump and has been working outpatient and actually received new one in the mail however has not had it set up yet. Reports last week had episode of his insulin pump being ripped off. States this morning he woke up and his insulin pump must of fallen off during the night. Today he has had nausea and multiple episodes of vomiting. Patient also reports 10 or more episodes of loose stools for the past year. Summer 2019 patient states was treated for C. difficile however he continues to still have 10 loose stools daily. He states that he did not follow back up with his GI provider. Patient denies abdominal pain. Denies any noted fevers. States today after he would vomit would feel chilled. Denies hematemesis, melena, hematochezia, ROBERTS, dizziness, vision changes, neck pain, CP, SOB, orthopnea, palpitations, cough, sore throat, choking, otalgia, rhinorrhea, abdominal pain, paresthesias, weakness, extremity edema, rashes, urinary symptoms. In ER patient found to have BSG 504, beta hydroxybutyric acid: 51, K: 4.6, ma.5, CO2: 21, anion gap: 18, VBG pH: 7.3, BUN: 21, Cr: 1.5, lactate 5, UA unremarkable for infection, CXR: No infiltrate. In ER was given to L NSS and insulin drip was started. Admission Exam Per Admitting Provider Constitutional: WD/WN, vitals as above no acute distress Eyes: PERRL, conjunctivae normal, anicteric sclerae ENMT: external ear and nose normal, oropharynx normal Neck: trachea midline, no thyromegaly Respiratory: normal respiratory effort, lungs clear to auscultation Cardiovascular: RRR, no murmur, no edema Chest (Breasts): Chest: normal inspection of chest Gastrointestinal (Abdomen): Inspection/Auscultation: abdomen normal to inspection and normal bowel sounds; abdomen not distended Percussion/Palpation: abdomen soft; no guarding and abdomen not rigid Musculoskeletal: no cyanosis or clubbing, extremities motor strength 5/5 Skin: no rashes, warm and dry Neurologic: PERRL, EOMI, accommodation nl, no face palsy, no dysarthria Psychiatric: A+Ox3, euthymic affect Principal Diagnosis Diabetic ketoacidosis in the setting of diabetes mellitus type 1 Anion gap metabolic acidosis Elevated lactic acid Acute kidney injury Diarrhea Depression Discharge Exam Constitutional WD/WN, vitals as above no acute distress Eyes PERRL, conjunctivae normal, anicteric sclerae ENMT external ear and nose normal, oropharynx normal Neck trachea midline, no thyromegaly Respiratory normal respiratory effort, lungs clear to auscultation Cardiovascular RRR, no murmur, no edema Chest (Breasts) Chest: normal inspection of chest Gastrointestinal (Abdomen) Inspection/Auscultation: abdomen normal to inspection and normal bowel sounds; abdomen not distended Percussion/Palpation: abdomen soft; no guarding and abdomen not rigid Musculoskeletal no cyanosis or clubbing, extremities motor strength 5/5 Skin no rashes, warm and dry Neurologic PERRL, EOMI, accommodation nl, no face palsy, no dysarthria Psychiatric A+Ox3, euthymic affect Discharge Data Allergies Allergy/AdvReac Type Severity Reaction Status Date / Time methyl salicylate Allergy Unknown HIVES, Verified 01/31/21 17:27 "FEELS LIKE FIRE ON MY SKIN" codeine AdvReac Intermediate BECOMES Verified 01/31/21 17:27 VERY AGGRESSIVE Consultations 01/31/21 17:41 ED Decision to Admit Stat 01/31/21 22:00 Consult Behavioral Health Liaison Routine 02/01/21 08:00 Consult Psychiatry Routine Ordered Studies 01/31/21 18:32 CT abd pelvis wo con Urgent FINDINGS: Lung bases are unremarkable. No pneumatosis, free air or portal venous gas is present. No renal, ureteral or bladder calculi are present. There is no hydronephrosis or hydroureter. Evaluation of the remainder of the abdomen and pelvis is suboptimal on this unenhanced exam. The liver, spleen, adrenal glands and pancreas are unremarkable. There is no biliary or pancreatic ductal dilatation. There is no evidence for a bowel obstruction. The appendix is normal. A few colonic diverticula are noted without evidence for acute dive rticulitis. No lymphadenopathy or ascites. No acute fracture or suspicious lesion is identified within the visualized skeletal structures. IMPRESSION: 1. No urinary calculi or hydronephrosis. 2. Normal appendix. No bowel obstruction. A few colonic diverticula without evidence for acute diverticulitis. Diabetes Follow up Diabetes Follow-up Needed for HgbA1c >9% Hospital Course (1) DKA (diabetic ketoacidoses): (2) Type 1 diabetes mellitus: Pt is a 35 y/o M with PMH DM I with insulin pump, depression presented to ER with complaint of nausea and vomiting and insulin pump falling off last night. edema, rashes, urinary symptoms. In ER patient afebrile, P: 115, BP: 163/99, R: 20, O2 sat: 99 on RA. Glucose 504, beta hydroxybutyric acid: 51, K: 4.6, ma.5, CO2: 21, anion gap: 18, VBG pH: 7.3 In ER was given 2 L NSS and insulin drip was started with repeat BSG of 350 IVF, Insulin Drip pharmacy glycemic consult Repeat BMP, phosphorus and magnesium labs NPO until acidosis resolved Pt will need to keep outpatient glycemic pharmacy follow up for insulin pump management 02/01 Currently patient is feeling much better, on IV fluids and IV insulin, however anion gap is closed, and will start patient on subcu insulin, and clear liquid diet. Clinically much improved, without any nausea or vomiting. His new pump was also programmed by a pharmacist. 02/02 Patient's new pump was hooked up however his blood sugars are now again elevated. We will try to change the site for the pump. Patient wants to be discharged later today regardless if his new pump is fully functional or not. He has insulin at home. He will be also getting insulin pens from the hospital that he has been using. Glycemic pharmacy aware. Patient will need to follow-up closely with [facility] after discharge, patient is in full agreement with that. (3) Elevated lactic acid level: lactate 5, UA unremarkable for infection, CXR: No infiltrate Probable secondary to DKA, dehydration Repeat lactate 3.2 -> 1.[address] abdomen/pelvis secondary to diarrhea IMPRESSION: 1. No urinary calculi or hydronephrosis. 2. Normal appendix. No bowel obstruction. A few colonic diverticula without evidence for acute diverticulitis. Elevated lactic acid resolved (4) JESSIE (acute kidney injury): Cr: 1.5. GFR: 58. Baseline Cr: 1.0 with GFR>60 - secondary to dehydration IV fluids Monitor renal functions, avoid nephrotoxic agents when possible JESSIE now resolved Cr 0.98 (5) Diarrhea: Reports 10 or more episodes of loose stools/day (on a good day) for the past year Obtain C. difficile, stool culture, ova parasites, Giardia Start probiotic CT abdomen pelvis unremarkable May need GI consult or outpatient GI follow-up Patient was unable to provide stool sample on admission initially. After he started diet yesterday, patient had a bowel movement, 1 bowel movement also overnight when he was sleeping. C. difficile is negative. Other stool studies are pending. Discussed in detail that he will need to follow-up closely with GI/family medicine after discharge. Patient is in full agreement with that. Depression - on admission identified as high risk/history of suicidal ideations/suicidal attempts -Was seen by psychiatry nurse overnight, psychiatry consulted - list of providers was given to the patient -Patient interested ADHD testing, may be done as outpatient Follows with Dr Orellana for routine care Total Time Total Time Spent Total Time Spent (In Minutes): 40 Total Time Includes: Examination of the Patient, Discharge Planning, Medication Reconciliation and Communication With Other Providers Discharge Plan Discharge Items Patient Disposition: Home - Self-Care Reason For Visit: DKA Discharge Diagnosis: Diabetic ketoacidosis in the setting of diabetes mellitus type 1 Anion gap metabolic acidosis Elevated lactic acid Acute kidney injury Diarrhea Depression Activity: Per Instructions section Non-emergency contact: Primary Care Provider, Specialist and Breast Surgeon Call non-emergency contact if: you have any medication questions and your symptoms worsen Follow-up/Referrals: Kylah Orellana, [Primary Care Provider] - Diet: Carb Count or DM1 Addtl Attending Provider Instructions: As discussed, it is crucial that you follow-up closely with [facility] for your diabetes/insulin pump, a family medicine physician and possibly also gastroenterology. Your new insulin pump was programmed here, it is crucial that you follow-up with your [place] glycemic pharmacist for any further adjustments. In the meantime, make sure that you continue to monitor your blood sugars, if there is concern for another insulin pump malfunction, and your blood sugars are elevated, you should switch back to your regular insulin pens until seen by your physician or [facility] clinic provider. While you are in the hospital, you were started on probiotics, prescription was sent to your pharmacy. You can also obtain probiotics in any pharmacy [id number]. Final stool studies are still pending, results will be available at your next appointment with your healthcare providers. It is recommended that you quit/decrease smoking. Here you were using nicotine patches. Consider calling [facility] now, the free smoking cessation line, as they can provide you with support and also possibly free nicotine patches/products, to help you quit smoking. Pending Studies at Discharge: Yes Studies:: stool studies, stool cultx final blood cultx Stand-Alone Forms: [facility], Smoking Cessation Medications and DC Order Prescriptions: New Saccharomyces boulardii [Florastor] 250 mg Capsule 250 mg PO DAILY Qty: 30 RF: 0 Continued dicyclomine 10 mg capsule 10 mg PO Q6H PRN (Reason: IBS) RF: 0 insulin aspart U-100 100 unit/mL solution See Rx Instructions .ROUTE .COMPLEX RF: 0 tadalafil 5 mg tablet 5 mg PO QAM RF: 0 Discharge Orders: Discharge Order (Routine); Ordered 02/02/21 Ordered By: Luis Luther Admission Data Admit Date/Time: 01/31/21 19:00 Attending Provider: Luis Lutehr Admit Provider: Luis Luther Primary Care Provider: Kylah Orellana Other Providers: Nilesh Fortune ; Luis Luther
== END 2021-02-02 19:34 | disposition home or self-care (01) | DRG 638 ==
LOC: ED 15:45 → 2S 19:00

== ENCOUNTER 2022-03-08 20:12 | Inpatient (IN) ==
[2022-03-08] MEDS ORDERED: SODIUM CHLORIDE 0.9% 1000ML 2,000 ML IV ONE (20:55)
[2022-03-08 21:05] LABS: Basophils # (auto) 0.02 K/uL (0-0.2); Basophils % (auto) 0.3 %; Eosinophils # (auto) 0.08 K/uL (0-0.5); Eosinophils % (auto) 1.3 %; Hematocrit (blood only) 41.1 % (42-52); Hemoglobin 15.3 g/dL (14.0-18.0); Immature Granulocytes # (auto) 0.01 K/uL (0.00-0.02); Immature Granulocytes % (auto) 0.2 %; Lymphocytes # (auto) 1.01 K/uL (1.2-3.4); Lymphocytes % (auto) 16.3 %; Mean Corpuscular Hemoglobin 33.3 pg (25-34); Mean Corpuscular Hgb Conc 37.2 g/dL (32-36); Mean Corpuscular Volume 89.3 fL (80-100); Mean Platelet Volume 10.1 fL (7.4-10.4); Monocytes # (auto) 0.61 K/uL (0.11-0.59); Monocytes % (auto) 9.9 %; Neutrophils # (auto) 4.46 K/uL (1.4-6.5); Platelet Count 196 K/uL (130-400); RDW Coefficient of Variation 12.5 % (11.5-14.5); RDW Standard Deviation 40.7 fL (36.4-46.3); White Blood Count 6.19 K/uL (4.8-10.8)
[2022-03-08 21:29] LABS: Albumin Level 4.2 gm/dl (3.4-5.0); BUN Creatinine Ratio 17.1 (10-20); Bilirubin Direct 0.4 mg/dl (0-0.2); Calcium 8.6 mg/dl (8.5-10.1); Creatinine Clr Calc Pharmacy 94.4 ml/min; Est GFR (African American) 99.9 ml/min; Est GFR (Non-African American) 86.2 ml/min; Potassium 4.9 mmol/L (3.5-5.1); Total Protein 6.6 gm/dl (6.0-8.3)
[2022-03-08] MEDS ORDERED: STAT INSULIN DRIP STA (21:44)
[2022-03-08] MEDS ORDERED: CARBOHYDRATES FOR HYPOGLYCEMIA PO PRN (21:44)
[2022-03-08] MEDS ORDERED: GLUCAGON FOR INJ 1 MG VIAL SQ PRN (21:44)
[2022-03-08] MEDS ORDERED: GLUCOSE 40% GEL 15 GM TUBE PO PRN (21:44)
[2022-03-08] MEDS ORDERED: GLUCOSE 10 TAB/TUBE PO PRN (21:44)
[2022-03-08] MEDS ORDERED: INSULIN REGULAR 250 UNITS in SODIUM CHLORIDE 0.9% 247.5 ML IV SCH (21:45)
[2022-03-08] MEDS ORDERED: LACTATED RINGER'S 1,000 ML IV ONE (22:00)
[2022-03-08 22:48] LABS: Adenovirus F 40/41 PCR Not Detected (NotDetected); Astrovirus PCR Not Detected (NotDetected); Campylobacter PCR Not Detected (NotDetected); Clostridium diff Toxin A/B PCR Not Detected (NotDetected); Cryptosporidium PCR Not Detected (NotDetected); Cyclospora cayetanensis PCR Not Detected (NotDetected); Entamoeba histolytica PCR Not Detected (NotDetected); Enteroaggregative E.coli(EAEC) Not Detected (NotDetected); Enteropathogenic E.coli (EPEC) Not Detected (NotDetected); Enterotoxigenic E.coli (ETEC) Not Detected (NotDetected); Giardia lamblia PCR Not Detected (NotDetected); Norovirus GI/GII PCR Not Detected (NotDetected); Plesiomonas shigelloides PCR Not Detected (NotDetected); Rotavirus A PCR Not Detected (NotDetected); Salmonella PCR Not Detected (NotDetected); Sapovirus PCR Not Detected (NotDetected); Shiga-like Toxin E.coli (STEC) Not Detected (NotDetected); Shigella/Enteroinvasive E.coli Not Detected (NotDetected); Vibrio cholerae PCR Not Detected (NotDetected); Vibrio species PCR Not Detected (NotDetected); Yersinia enterocolitica PCR Not Detected (NotDetected)
--- NOTE | 2022-03-09 00:04 | History & Physical Report ---
Date of Service March 08, 2022 (LATE ENTRY) Assessment & Plan (1) Hyperglycemic crisis in diabetes mellitus: Plan: DKA/HHS History DM1 on insulin pump Suboptimal control as of recent outpatient hemoglobin A1c of 8.11 September 2021 Precipitated by secondary to missed medication (patient ran out of prescribed insulin aspart for his insulin pump and was utilizing leftover Novolin insulin) poor follow-up with [facility] pharmacy as per records Worsening chronic diarrhea Outpatient pathogen testing from months ago negative. Depression, although suboptimal patient prefers to avoid medications Ongoing tobacco abuse GMF IV insulin, Pharmacy glycemic control consult Update hemoglobin A1c Repeat stool pathogen work-up GI consult Re: Worsening chronic diarrhea Nicotine patch DVT prophylaxis. Lovenox subcu Full code Text document was generated using [employer] voice recognition software. It may contain grammatical or spelling errors. Kindly contact undersigned for clarification of any documentation item in question. History of Present Illness Chief Complaint: High sugars, worsening abdominal pain, diarrhea Primary Care Provider: Kylah Orellana DO History obtained from patient, family, and records. Medical history significant for DM 1,, anxiety/mood disorder, history pneumomediastinum as per records, chronic diarrhea, ongoing tobacco abuse. Last confinement January 2021 for DKA. Last week, patient ran out of prescribed insulin aspart for his insulin pump. No refills given inability to follow-up with [facility] [address] pharmacy. Patient used leftover NovoLog. Blood sugars noted to be 700s the last 2 days. Patient under a lot of stress with his girlfriend having a recent accident. Worsening of achy abdominal pain and chronic diarrhea symptoms which she has had for the last 9 months. Colonoscopy still has to be scheduled as per patient. No fever, no chills. No unusual chest pain, SOB. BSG 700s upon arrival at the ER IV insulin initiated at the ER. Medical Historyas above Surgical History : Dental surgery Family History : Breast cancer, psychiatric illness Personal/Social history : Half pack daily, occasional EtOH intake, prior work at the [employer] Allergies Allergy/AdvReac Type Severity Reaction Status Date / Time methyl salicylate Allergy Intermediate HIVES, Verified 03/08/22 21:22 "FEELS LIKE FIRE ON MY SKIN" codeine AdvReac Intermediate BECOMES Verified 03/08/22 21:22 VERY AGGRESSIVE Home Medications Medication Instructions Recorded Confirmed Type dicyclomine 10 mg capsule 10 mg PO Q6H PRN 04/14/20 03/08/22 History insulin aspart U-100 100 unit/mL 0 unit CONTINUOUS SUBCUTANEOUS 07/08/20 03/08/22 History subcutaneous solution INFUSION CONTINOUS Past Med/Surg History Medical History Diabetes Disorder of male genital organs, unspecified DKA (diabetic ketoacidoses) Epigastric pain GERD (gastroesophageal reflux disease) Hx of psoriasis Hypertension Major depressive disorder, recurrent episode Rectal/anal hemorrhage Sebaceous cyst Suicidal ideation Tobacco abuse disorder Surgical History No pertinent past surgical history Family History Father Cardiovascular disease Diabetes Mother Diabetes Other No significant family history Social History Smoking Status: Current every day smoker Tobacco Type: Cigarettes Cigarettes Per Day: 1 PPD; Do You Dip or Chew Tobacco: No; Hx Alcohol Use: No Hx Substance Use: No Preferred Language: Ethiopian Communication Ability: Effective Sanitizer Required: No Beliefs That Will Affect Care: None marital status: Single Current Living Situation: Significant Other current occupational status: employed Other Information That Helps Us Care for You: No Feels Safe at Home: Yes Safety Concerns: Feels Safe At This Time Assistive Devices: Glasses Review of Systems Review of Systems: As per HPI, all other systems reviewed and negative Physical Exam Physical Exam: GENERAL: uncomfortable, anxious, older than stated age, no respiratory distress SKIN: Normal color, warm HEENT: Bespectacled, [place] palpebral conjunctivae, no ptosis, dry buccal mucosa NECK : Supple, no tenderness CHEST : CTA, no tenderness HEART : RRR, no obvious murmurs ABDOMEN: Flat, central abdominal tenderness EXTREMITIES : No LE swelling/tenderness, no other conspicuous deformities noted NEUROLOGIC : Coherent, no facial asymmetry, no other gross focality Results & Data Results & Data ([facility]) Vital Signs (Past 12 Hours) Vital Signs Temp Pulse Resp BP Pulse Ox 03/08/22 21:09 86 24 99 03/08/22 20:17 36.8 C 98 H 16 123/75 96 Laboratory Results Laboratory Results WBC 6.19 K/uL (4.8-10.8) 03/08/22 20:40 RBC 4.60 M/uL (4.7-6.1) L 03/08/22 20:40 Hgb 15.3 g/dL (14.0-18.0) 03/08/22 20:40 Hct 41.1 % (42-52) L 03/08/22 20:40 MCV 89.3 fL (80-100) 03/08/22 20:40 MCH 33.3 pg (25-34) 03/08/22 20:40 MCHC 37.2 g/dL (32-36) H 03/08/22 20:40 RDW Std Deviation 40.7 fL (36.4-46.3) 03/08/22 20:40 RDW Coeff of Bhavik 12.5 % (11.5-14.5) 03/08/22 20:40 Plt Count 196 K/uL (130-400) 03/08/22 20:40 MPV 10.1 fL (7.4-10.4) 03/08/22 20:40 Immature Gran % (Auto) 0.2 % 03/08/22 20:40 Neut % (Auto) 72.0 % 03/08/22 20:40 Lymph % (Auto) 16.3 % 03/08/22 20:40 [place] % (Auto) 9.9 % 03/08/22 20:40 Eos % (Auto) 1.3 % 03/08/22 20:40 Baso % (Auto) 0.3 % 03/08/22 20:40 Neut # (Auto) 4.46 K/uL (1.4-6.5) 03/08/22 20:40 Lymph # (Auto) 1.01 K/uL (1.2-3.4) L 03/08/22 20:40 [place] # (Auto) 0.61 K/uL (0.11-0.59) H 03/08/22 20:40 Eos # (Auto) 0.08 K/uL (0-0.5) 03/08/22 20:40 Baso # (Auto) 0.02 K/uL (0-0.2) 03/08/22 20:40 Immature Gran # (Auto) 0.01 K/uL (0.00-0.02) 03/08/22 20:40 Sodium 125 mmol/L (136-145) L 03/08/22 20:40 Potassium 4.9 mmol/L (3.5-5.1) 03/08/22 20:40 Chloride 92 mmol/L (98-107) L 03/08/22 20:40 Carbon Dioxide 19 mmol/L (21-32) L 03/08/22 20:40 Anion Gap 14 (3-11) H 03/08/22 20:40 BUN 19 mg/dl (6-23) 03/08/22 20:40 Creatinine 1.11 mg/dl (0.6-1.4) 03/08/22 20:40 Est Cr Clr Drug Dosing 94.4 ml/min 03/08/22 20:40 Est GFR ( Amer) 99.9 ml/min 03/08/22 20:40 Est GFR (Non-Af Amer) 86.2 ml/min 03/08/22 20:40 BUN/Creatinine Ratio 17.1 (10-20) 03/08/22 20:40 Glucose 722 mg/dl (70-99(Fasting)) H* 03/08/22 20:40 POC Glucose 512 mg/dl (70-99) H* 03/08/22 21:52 Osmolality 307 mOsm/kg (280-300) H 03/08/22 20:40 Calcium 8.6 mg/dl (8.5-10.1) 03/08/22 20:40 Magnesium 1.9 mg/dl (1.7-2.4) 03/08/22 20:40 Total Bilirubin 2.0 mg/dl (0.2-1.0) H 03/08/22 20:40 Direct Bilirubin 0.4 mg/dl (0-0.2) H 03/08/22 20:40 AST 18 U/L (13-39) 03/08/22 20:40 ALT 21 U/L (7-52) 03/08/22 20:40 Alkaline Phosphatase 85 U/L (34-104) 03/08/22 20:40 Total Protein 6.6 gm/dl (6.0-8.3) 03/08/22 20:40 Albumin 4.2 gm/dl (3.4-5.0) 03/08/22 20:40 Lipase 37 U/L (11-82) 03/08/22 20:40 TSH 0.443 uIu/ml (0.300-4.500) 03/08/22 20:40 Stl C. cayetanensis PCR Not Detected (NotDetected) 03/08/22 Unknown Stool Rotavirus A PCR Not Detected (NotDetected) 03/08/22 Unknown Stl Adenov F 40/41 PCR Not Detected (NotDetected) 03/08/22 Unknown Stool Astrovirus (PCR) Not Detected (NotDetected) 03/08/22 Unknown Stool Campylobacter PCR Not Detected (NotDetected) 03/08/22 Unknown Stl C. diff Tox A/B PCR Not Detected (NotDetected) 03/08/22 Unknown Stool Cryptosporidium PCR Not Detected (NotDetected) 03/08/22 Unknown Stl E.coli Shiga Tox PCR Not Detected (NotDetected) 03/08/22 Unknown Stl Enterotoxigenic E PCR Not Detected (NotDetected) 03/08/22 Unknown Stool EPEC (PCR) Not Detected (NotDetected) 03/08/22 Unknown Stool EAEC (PCR) Not Detected (NotDetected) 03/08/22 Unknown Stl E. histolytica PCR Not Detected (NotDetected) 03/08/22 Unknown Stool Giardia Lamblia PCR Not Detected (NotDetected) 03/08/22 Unknown Stool Salmonella PCR Not Detected (NotDetected) 03/08/22 Unknown Stool Sapovirus (PCR) Not Detected (NotDetected) 03/08/22 Unknown Stl P. shigelloides PCR Not Detected (NotDetected) 03/08/22 Unknown Stl Shigella/EIEC PCR Not Detected (NotDetected) 03/08/[address]enterocolitica PCR Not Detected (NotDetected) 03/08/22 Unknown Stool Vibrio (PCR) Not Detected (NotDetected) 03/08/22 Unknown Stl Vibrio cholerae PCR Not Detected (NotDetected) 03/08/22 Unknown Stl Norovirus GI/GII PCR Not Detected (NotDetected) 03/08/22 Unknown SARS-CoV-2, RNA, NAAT NEGATIVE (NEGATIVE) 03/08/[address] abdomen pelvis initial read: Evaluation limited bylack of oral contrast, bowel underdistention and paucityof intra-abdominal fat. Question mural thickening of sigmoid colon/rectumand there is probable perirectal edema, suspicious for proctitis in the appropriate clinical setting. There mayalso be some mural thickening of small bowel loops, suggesting possible enteritis. No free air or free fluid. No bowel obstruction. Small right lower pole renal cyst. Solid organs otherwise unremarkable Code Status & VTE Plan VTE Prophylaxis Plan VTE Prophylaxis will be ordered: Yes
--- NOTE | 2022-03-09 00:44 | Emergency Department Note ---
History of Present Illness General Chief complaint: Hyperglycemia Stated complaint: DIARRHEA, IS DIABETIC Time Seen by Provider: 03/08/22 20:41 History of Present Illness Provider complaint: Diarrhea abdominal pain Onset (ago): day(s) 2 Location: abdomen Radiation: non-radiation Maximum Pain Intensity: 6 Quality: + aching Relieved By: + none Exacerbated By: + none Associated symptoms: + malaise; no chest pain, no cough, no fever/chills, no headaches, no nausea/vomiting or no shortness of breath 36-year-old insulin-dependent diabetic male presents to the emergency department with diarrhea and abdominal pain. Patient reports he has been under a lot of stress and has been having diarrhea. No melena or hematochezia. No nausea vomiting or diarrhea. Patient states he feels dehydrated and worried is worried that this threw him into DKA. He states he ran out of his normal insulin aspart. No fevers. Home Medications Medication Instructions Recorded Confirmed Type dicyclomine 10 mg capsule 10 mg PO Q6H PRN 04/14/20 03/08/22 History insulin aspart U-100 100 unit/mL 0 unit CONTINUOUS SUBCUTANEOUS 07/08/2012/25 History subcutaneous solution INFUSION CONTINOUS Allergies Allergy/AdvReac Type Severity Reaction Status Date / Time methyl salicylate Allergy Intermediate HIVES, Verified 03/08/22 21:22 "FEELS LIKE FIRE ON MY SKIN" codeine AdvReac Intermediate BECOMES Verified 03/08/22 21:22 VERY AGGRESSIVE Past Med/Surg History Medical History Diabetes Disorder of male genital organs, unspecified DKA (diabetic ketoacidoses) Epigastric pain GERD (gastroesophageal reflux disease) Hx of psoriasis Hypertension Major depressive disorder, recurrent episode Rectal/anal hemorrhage Sebaceous cyst Suicidal ideation Tobacco abuse disorder Surgical History No pertinent past surgical history Family History Father Cardiovascular disease Diabetes Mother Diabetes Other No significant family history Social History Smoking Status: Current every day smoker Tobacco Type: Cigarettes Hx Alcohol Use: Yes Hx Substance Use: Yes Non-Prescribed Medications: Marijuana Preferred Language: Ethiopian Communication Ability: Effective [employer] Worker Required: No Beliefs That Will Affect Care: None marital status: Single Current Living Situation: Significant Other current occupational status: employed Feels Safe at Home: Yes Assistive Devices: None Review of Systems A total of 10 systems reviewed and were otherwise negative Physical Exam Vital Signs Vital Signs - 24 hr 03/08/22 20:17 03/08/22 21:09 03/08/22 22:45 Temperature 36.8 C Temperature Source Temporal Artery Scan Pulse Rate 98 H 86 Pulse Rate [Left Finger] 94 H Respiratory Rate 16 24 18 Respiratory Effort / Characteristics Non-Labored Spontaneous Respiratory Depth Normal Blood Pressure 123/75 Blood Pressure [Right Arm] 141/90 H Blood Pressure Mean 91 Blood Pressure Mean [Right Arm] 107 Blood Pressure Position Sitting Pulse Oximetry 96 99 98 Oxygen Delivery Method Room Air Room Air Sepsis Recent Fever Within 48 Hours No Sepsis New/Unexplained Change in Mental Status N/A Sepsis Action Taken by Nursing No Action Required Physical Exam GENERAL: He is oriented to person, place, and time. He appears well-developed and well-nourished. He does not appear distressed. HENT: Exam performed. - Head: Normocephalic and atraumatic. - Right Ear: External ear normal. No mastoid tenderness. - Left Ear: External ear normal. No mastoid tenderness. - Mouth/Throat: The oropharynx is clear and moist. No trismus in the jaw. No dental abscesses or uvula swelling. No oropharyngeal exudate or tonsillar abscesses. EYES: Conjunctivae and EOM are normal. Pupils are equal, round, and reactive to light. Right eye exhibits no discharge. Left eye exhibits no discharge. No scleral icterus. NECK: Normal range of motion. Neck supple. No JVD present. No spinous process t enderness present. No carotid bruit present. No rigidity. No tracheal deviation and normal range of motion present. No Brudzinski's sign and no Kernig's sign noted. CV: Normal rate, regular rhythm, normal heart sounds and intact distal pulses. There is no peripheral edema. Palpable radial pulses bue. PULM/CHEST: Effort normal and breath sounds normal. No respiratory distress. No stridor. He has no wheezes. He has no rales. - Chest Wall: He exhibits no tenderness. ABD: The abdomen is soft. Bowel sounds are normal. He has no distension. No mass is present. There is no tenderness. There is no rebound, no guarding, no Ramon's sign and no tenderness at McBurney's point. Rovsig negative. Insulin pump in place MUSC/SKEL: Normal range of motion. There is no peripheral edema, tenderness or deformity. LYMPH: No cervical adenopathy. NEURO: He is alert and oriented to person, place, and time. He has normal strength. No cranial nerve deficit or sensory deficit. Coordination and gait normal. GCS eye subscore is 4. GCS verbal subscore is 5. GCS motor subscore is 6. Cerebellar tests wnl. SKIN: Skin is warm and dry. He is not diaphoretic. PSYCH: He has a normal mood and affect. Behavior is normal. Judgment and thought content normal. Course Course 2040: The patient was evaluated in room C8. A complete history and physical exam was performed Cardiac monitoring: An order was placed for continuous cardiac monitoring. The monitor shows a rate of 90 with sinus rhythm Patient's Accu-Chek is reading greater than 600 insulin pump disconnected. 2144: Vital signs stable. Labs show a sodium of 125 glucose of 722, anion gap 14. Patient will be started on insulin drip 0.1 units per codon per hour. Status post 2 L IV fluids patient's Accu-Chek improved to 512. [facility] Dr. Ahn notified. Administered Medications Insulin Human Regular 250 (units/ Sodium Chloride) 250 mls @ 7 mls/hr IV .Q24H [facility]; Protocol Stop: 04/07/22 21:44 Last Titration: 03/08/22 23:25 Dose: 8.4 units/hr, 8.4 mls/hr Documented by: [id number] Cosigned by: [id number] Admin: 03/08/22 22:08 Dose: 7 units/hr, 7 mls/hr Documented by: [id number] Cosigned by: [id number] Discontinued Medications Sodium Chloride (Nss 1000ml) 2,000 mls @ 999 mls/hr IV .Q2H1M ONE Stop: 03/08/22 22:55 Last Infusion: 03/09/22 00:32 Dose: 0 mls/hr Documented by: [id number] Admin: 03/08/22 21:07 Dose: 999 mls/hr Documented by: [id number] Lactated Ringer's (Lr) 1,000 mls @ 500 mls/hr IV .Q2H ONE Stop: 03/08/22 23:59 Last Infusion: 03/09/22 00:31 Dose: 0 mls/hr Documented by: [id number] Admin: 03/08/22 22:45 Dose: 500 mls/hr Documented by: [id number] Critical Care Time Critical Care Time: Yes Total Critical Care Time: 43 I have personally spent greater than 43 minutes of critical care time in the direct management of this patient. This includes bedside care, interpretation of diagnostic studies, and testing, discussion with consultants, patient, and family members, and other required patient management activities. This 43 minutes is in excess of all separately billable procedures. Medical Decision Making Laboratory Data Result diagrams: 03/08/22 20:40 03/08/22 20:40 Lab Results 03/08/22 03/08/22 03/08/22 Range/Units 20:40 20:40 20:40 WBC 6.19 (4.8-10.8) K/uL RBC 4.60 L (4.7-6.1) M/uL Hgb 15.3 (14.0-18.0) g/dL Hct 41.1 L (42-52) % MCV 89.3 (80-100) fL MCH 33.3 (25-34) pg MCHC 37.2 H (32-36) g/dL RDW Std Deviation 40.7 (36.4-46.3) fL RDW Coeff of Bhavik 12.5 (11.5-14.5) % Plt Count 196 (130-400) K/uL MPV 10.1 (7.4-10.4) fL Immature Gran % (Auto) 0.2 % Neut % (Auto) 72.0 % Lymph % (Auto) 16.3 % [place] % (Auto) 9.9 % Eos % (Auto) 1.3 % Baso % (Auto) 0.3 % Neut # (Auto) 4.46 (1.4-6.5) K/uL Lymph # (Auto) 1.01 L (1.2-3.4) K/uL [place] # (Auto) 0.61 H (0.11-0.59) K/uL Eos # (Auto) 0.08 (0-0.5) K/uL Baso # (Auto) 0.02 (0-0.2) K/uL Immature Gran # (Auto) 0.01 (0.00-0.02) K/uL Sodium 125 L (136-145) mmol/L Potassium 4.9 (3.5-5.1) mmol/L Chloride 92 L (98-107) mmol/L Carbon Dioxide 19 L (21-32) mmol/L Anion Gap 14 H (3-11) BUN 19 (6-23) mg/dl Creatinine 1.11 (0.6-1.4) mg/dl Est Cr Clr Drug Dosing 94.4 ml/min Est GFR ( Amer) 99.9 ml/min Est GFR (Non-Af Amer) 86.2 ml/min BUN/Creatinine Ratio 17.1 (10-20) Glucose 722 H* (70-99(Fasting)) mg/dl POC Glucose (70-99) mg/dl Osmolality 307 H (280-300) mOsm/kg Calcium 8.6 (8.5-10.1) mg/dl Magnesium (1.7-2.4) mg/dl Total Bilirubin 2.0 H (0.2-1.0) mg/dl Direct Bilirubin 0.4 H (0-0.2) mg/dl AST 18 (13-39) U/L ALT 21 (7-52) U/L Alkaline Phosphatase 85 (34-104) U/L Total Protein 6.6 (6.0-8.3) gm/dl Albumin 4.2 (3.4-5.0) gm/dl Lipase 37 (11-82) U/L TSH (0.300-4.500) uIu/ml Stl C. cayetanensis PCR (NotDetected) Stool Rotavirus A PCR (NotDetected) Stl Adenov F 40/41 PCR (NotDetected) Stool Astrovirus (PCR) (NotDetected) Stool Campylobacter PCR (NotDetected) Stl C. diff Tox A/B PCR (NotDetected) Stool Cryptosporidium PCR (NotDetected) Stl E.coli Shiga Tox PCR (NotDetected) Stl Enterotoxigenic E PCR (NotDetected) Stool EPEC (PCR) (NotDetected) Stool EAEC (PCR) (NotDetected) Stl E. histolytica PCR (NotDetected) Stool Giardia Lamblia PCR (NotDetected) Stool Salmonella PCR (NotDetected) Stool Sapovirus (PCR) (NotDetected) Stl P. shigelloides PCR (NotDetected) Stl Shigella/EIEC PCR (NotDetected) St Y.enterocolitica PCR (NotDetected) Stool Vibrio (PCR) (NotDetected) Stl Vibrio cholerae PCR (NotDetected) Stl Norovirus GI/GII PCR (NotDetected) SARS-CoV-2, RNA, NAAT (NEGATIVE) 03/08/22 03/08/22 03/08/22 Range/Units 20:40 20:40 20:52 WBC (4.8-10.8) K/uL RBC (4.7-6.1) M/uL Hgb (14.0-18.0) g/dL Hct (42-52) % MCV (80-100) fL MCH (25-34) pg MCHC (32-36) g/dL RDW Std Deviation (36.4-46.3) fL RDW Coeff of Bhavik (11.5-14.5) % Plt Count (130-400) K/uL MPV (7.4-10.4) fL Immature Gran % (Auto) % Neut % (Auto) % Lymph % (Auto) % [place] % (Auto) % Eos % (Auto) % Baso % (Auto) % Neut # (Auto) (1.4-6.5) K/uL Lymph # (Auto) (1.2-3.4) K/uL [place] # (Auto) (0.11-0.59) K/uL Eos # (Auto) (0-0.5) K/uL Baso # (Auto) (0-0.2) K/uL Immature Gran # (Auto) (0.00-0.02) K/uL Sodium (136-145) mmol/L Potassium (3.5-5.1) mmol/L Chloride (98-107) mmol/L Carbon Dioxide (21-32) mmol/L Anion Gap (3-11) BUN (6-23) mg/dl Creatinine (0.6-1.4) mg/dl Est Cr Clr Drug Dosing ml/min Est GFR ( Amer) ml/min Est GFR (Non-Af Amer) ml/min BUN/Creatinine Ratio (10-20) Glucose (70-99(Fasting)) mg/dl POC Glucose > 600 H* (70-99) mg/dl Osmolality (280-300) mOsm/kg Calcium (8.5-10.1) mg/dl Magnesium 1.9 (1.7-2.4) mg/dl Total Bilirubin (0.2-1.0) mg/dl Direct Bilirubin (0-0.2) mg/dl AST (13-39) U/L ALT (7-52) U/L Alkaline Phosphatase (34-104) U/L Total Protein (6.0-8.3) gm/dl Albumin (3.4-5.0) gm/dl Lipase (11-82) U/L TSH 0.443 (0.300-4.500) uIu/ml Stl C. cayetanensis PCR (NotDetected) Stool Rotavirus A PCR (NotDetected) Stl Adenov F 40/41 PCR (NotDetected) Stool Astrovirus (PCR) (NotDetected) Stool Campylobacter PCR (NotDetected) Stl C. diff Tox A/B PCR (NotDetected) Stool Cryptosporidium PCR (NotDetected) Stl E.coli Shiga Tox PCR (NotDetected) Stl Enterotoxigenic E PCR (NotDetected) Stool EPEC (PCR) (NotDetected) Stool EAEC (PCR) (NotDetected) Stl E. histolytica PCR (NotDetected) Stool Giardia Lamblia PCR (NotDetected) Stool Salmonella PCR (NotDetected) Stool Sapovirus (PCR) (NotDetected) Stl P. shigelloides PCR (NotDetected) Stl Shigella/EIEC PCR (NotDetected) St Y.enterocolitica PCR (NotDetected) Stool Vibrio (PCR) (NotDetected) Stl Vibrio cholerae PCR (NotDetected) Stl Norovirus GI/GII PCR (NotDetected) SARS-CoV-2, RNA, NAAT (NEGATIVE) 03/08/22 03/08/22 03/08/22 Range/Units 21:52 Unknown Unknown WBC (4.8-10.8) K/uL RBC (4.7-6.1) M/uL Hgb (14.0-18.0) g/dL Hct (42-52) % MCV (80-100) fL MCH (25-34) pg MCHC (32-36) g/dL RDW Std Deviation (36.4-46.3) fL RDW Coeff of Bhavik (11.5-14.5) % Plt Count (130-400) K/uL MPV (7.4-10.4) fL Immature Gran % (Auto) % Neut % (Auto) % Lymph % (Auto) % [place] % (Auto) % Eos % (Auto) % Baso % (Auto) % Neut # (Auto) (1.4-6.5) K/uL Lymph # (Auto) (1.2-3.4) K/uL [place] # (Auto) (0.11-0.59) K/uL Eos # (Auto) (0-0.5) K/uL Baso # (Auto) (0-0.2) K/uL Immature Gran # (Auto) (0.00-0.02) K/uL Sodium (136-145) mmol/L Potassium (3.5-5.1) mmol/L Chloride (98-107) mmol/L Carbon Dioxide (21-32) mmol/L Anion Gap (3-11) BUN (6-23) mg/dl Creatinine (0.6-1.4) mg/dl Est Cr Clr Drug Dosing ml/min Est GFR ( Amer) ml/min Est GFR (Non-Af Amer) ml/min BUN/Creatinine Ratio (10-20) Glucose (70-99(Fasting)) mg/dl POC Glucose 512 H* (70-99) mg/dl Osmolality (280-300) mOsm/kg Calcium (8.5-10.1) mg/dl Magnesium (1.7-2.4) mg/dl Total Bilirubin (0.2-1.0) mg/dl Direct Bilirubin (0-0.2) mg/dl AST (13-39) U/L ALT (7-52) U/L Alkaline Phosphatase (34-104) U/L Total Protein (6.0-8.3) gm/dl Albumin (3.4-5.0) gm/dl Lipase (11-82) U/L TSH (0.300-4.500) uIu/ml Stl C. cayetanensis PCR Not Detected (NotDetected) Stool Rotavirus A PCR Not Detected (NotDetected) Stl Adenov F 40/41 PCR Not Detected (NotDetected) Stool Astrovirus (PCR) Not Detected (NotDetected) Stool Campylobacter PCR Not Detected (NotDetected) Stl C. diff Tox A/B PCR Not Detected (NotDetected) Stool Cryptosporidium PCR Not Detected (NotDetected) Stl E.coli Shiga Tox PCR Not Detected (NotDetected) Stl Enterotoxigenic E PCR Not Detected (NotDetected) Stool EPEC (PCR) Not Detected (NotDetected) Stool EAEC (PCR) Not Detected (NotDetected) Stl E. histolytica PCR Not Detected (NotDetected) Stool Giardia Lamblia PCR Not Detected (NotDetected) Stool Salmonella PCR Not Detected (NotDetected) Stool Sapovirus (PCR) Not Detected (NotDetected) Stl P. shigelloides PCR Not Detected (NotDetected) Stl Shigella/EIEC PCR Not Detected (NotDetected) St Y.enterocolitica PCR Not Detected (NotDetected) Stool Vibrio (PCR) Not Detected (NotDetected) Stl Vibrio cholerae PCR Not Detected (NotDetected) Stl Norovirus GI/GII PCR Not Detected (NotDetected) SARS-CoV-2, RNA, NAAT NEGATIVE (NEGATIVE) [facility] Narrative 2040: The patient was evaluated in room C8. A complete history and physical exam was performed Cardiac monitoring: An order was placed for continuous cardiac monitoring. The monitor shows a rate of 90 with sinus rhythm Patient's Accu-Chek is reading greater than 600 insulin pump disconnected. 2144: Vital signs stable. Labs show a sodium of 125 glucose of 722, anion gap 14. Patient will be started on insulin drip 0.1 units per codon per hour. Status post 2 L IV fluids patient's Accu-Chek improved to 512. Patient will be [facility] team Dr. Ahn notified. Impression & Plan DKA (diabetic ketoacidoses) Discharge Plan Visit Data Chief Complaint: Hyperglycemia Stated Complaint: DIARRHEA, IS DIABETIC Discharge Problem: DKA (diabetic ketoacidoses) Patient Disposition: Admitted As Inpatient Forms Stand Alone Forms: [facility] Prescriptions Prescriptions: No Action dicyclomine 10 mg capsule 10 mg PO Q6H PRN (Reason: IBS) RF: 0 insulin aspart U-100 100 unit/mL solution 0 unit continuous subcutaneous infusion CONTINOUS RF: 0 Referrals Referrals: Kylah Orellana DO [Primary Care Provider] -
[2022-03-09] MEDS ORDERED: LACTATED RINGER'S 1,000 ML IV ONE (00:45)
[2022-03-09] MEDS ORDERED: OPTIRAY 320 100ml IV ONE (00:55)
[2022-03-09 01:31] LABS: BUN Creatinine Ratio 22.5 (10-20); Est GFR (African American) 135.1 ml/min; Est GFR (Non-African American) 116.6 ml/min; Potassium 3.8 mmol/L (3.5-5.1)
[2022-03-09] MEDS ORDERED: oxyCODONE HCL IR 5 MG TAB (IMMEDIATE RELEASE) PO PRN (01:36)
[2022-03-09] MEDS ORDERED: NICOTINE 21 MG/24 HR TDSY TD STA (01:36)
[2022-03-09] MEDS ORDERED: STAT IV Infusion **Titration per Protocol STA (01:36)
[2022-03-09] MEDS ORDERED: PHARMACY GLYCEMIC MGMT CONSULT PRN (01:36)
[2022-03-09] MEDS ORDERED: ACETAMINOPHEN 325 MG TAB PO PRN (01:36)
[2022-03-09] MEDS ORDERED: PROMETHAZINE HCL 6.25 MG in SODIUM CHLORIDE 0.9% 50 ML IV PRN (01:36)
[2022-03-09] MEDS ORDERED: LORazepam 0.25 MG in SYRINGE 0.25 ML IV PRN (01:36)
[2022-03-09] MEDS ORDERED: DKA GOAL RANGE 150-250 mg/dl ONE (01:36)
[2022-03-09 03:42] LABS: Appearance Urine Clear (Clear); Bacteria Urine Automated Negative (Negative); Bilirubin Urine Negative (Negative); Blood Urine Negative (Negative); Cast Urine Automated 0 /lpf (0-5); Color Urine Yellow; Glucose Urine UA 2+ (Negative); Ketones Urine Trace (Negative); Leukocyte Esterase Urine Trace (Negative); Nitrite Urine Negative (Negative); Protein Urine Negative (Negative); RBC Urine Automated 0-4 /hpf (0-4); Specific Gravity Urine 1.026 (1.000-1.030); Urobilinogen Urine Negative (Negative)
[2022-03-09 06:36] LABS: Estimated Average Glucose 212 mg/dl
[2022-03-09 07:05] LABS: Hematocrit (blood only) 38.6 % (42-52); Hemoglobin 14.4 g/dL (14.0-18.0); Mean Corpuscular Hemoglobin 31.8 pg (25-34); Mean Corpuscular Hgb Conc 37.3 g/dL (32-36); Mean Corpuscular Volume 85.2 fL (80-100); Mean Platelet Volume 9.9 fL (7.4-10.4); Platelet Count 191 K/uL (130-400); RDW Coefficient of Variation 12.8 % (11.5-14.5); RDW Standard Deviation 39.6 fL (36.4-46.3); Red Blood Count 4.53 M/uL (4.7-6.1); White Blood Count 5.81 K/uL (4.8-10.8)
[2022-03-09 07:09] LABS: BUN Creatinine Ratio 16.9 (10-20); Calcium 8.4 mg/dl (8.5-10.1); Creatinine Clr Calc Pharmacy 136.9 ml/min; Est GFR (African American) 137.2 ml/min; Est GFR (Non-African American) 118.4 ml/min; Potassium 4.1 mmol/L (3.5-5.1)
[2022-03-09 07:30] LABS: Basophils # (auto) 0.02 K/uL (0-0.2); Basophils % (auto) 0.3 %; Echinocytes 1+; Eosinophils # (auto) 0.26 K/uL (0-0.5); Eosinophils % (auto) 4.5 %; Immature Granulocytes # (auto) 0.01 K/uL (0.00-0.02); Immature Granulocytes % (auto) 0.2 %; Lymphocytes # (auto) 1.52 K/uL (1.2-3.4); Lymphocytes % (auto) 26.2 %; Monocytes # (auto) 0.67 K/uL (0.11-0.59); Monocytes % (auto) 11.5 %; Neutrophils # (auto) 3.33 K/uL (1.4-6.5); Neutrophils % (auto) 57.3 %
[2022-03-09] MEDS: INSULIN ASPART PER UNIT SC SCH ×4 (08:30→21:57)
[2022-03-09] MEDS: ENOXAPARIN INJ 40 MG/0.4 ML SYR SQ SCH (08:39)
--- NOTE | 2022-03-09 09:30 | CT Scan Report ---
CT abd pelvis IV con only CLINICAL HISTORY: abd pain TECHNIQUE: Helical axial images of the abdomen and pelvis were obtained and displayed. Automated dose lowering techniques and/or adjustment according to patient size were utilized for this exam. This e xam was performed with intravenous contrast. CT DOSE: 287.14 mGy.cm COMPARISON: None available at the time of this dictation. FINDINGS: Lower chest: No acute abnormality Liver: Unremarkable. No focal lesions are seen. Gallbladder and biliary tree: No calcified gallstones. Normal caliber wall. No intra- or extrahepatic biliary ductal dilation. Pancreas: Unremarkable, no focal lesions. Spleen: Unremarkable. Adrenals: Unremarkable. Kidneys and ureters: Subcentimeter hypodensities are too small to characterize. Bladder: Unremarkable. Reproductive organs: Unremarkable. Bowel: Mucosal thickening is seen in the rectum, although evaluation is limited by a paucity of intra -abdominal fat. Lymph nodes Retroperitoneal: Unremarkable. Mesenteric: Unremarkable. Pelvic: Unremarkable. Peritoneum: Normal. Vessels: Unremarkable. Abdominal wall: Unremarkable. Bones: Degenerative changes in the visualized spine. IMPRESSION: Possible wall thickening in the rectum, clinical correlation for proctitis is recommended. Otherwise no acute abnormalities are seen. ACT 112: Negative or not required by law. Electronically signed by: Mahin Corrales M.D. 03/09/2022 9:28 AM
[2022-03-09] MEDS: NICOTINE 14 MG/24 HR PATCH TD SCH (10:03)
[2022-03-09] MEDS: LOPERAMIDE HCL 2 MG CAP PO PRN ×2 (10:03→18:39)
[2022-03-09] MEDS ORDERED: LORazepam 0.25 MG in SYRINGE 0.125 ML IV PRN (12:15)
[2022-03-09] MEDS ORDERED: LANTUS PER UNIT CHARGE SQ ONE (12:30)
--- NOTE | 2022-03-09 12:44 | Pharmacy Report ---
Pharmacy Glycemic Short Note 2 - Date of Service March 09, 2022 - Glycemic Short BSG Results (Last 24 hours): 03/08/22 03/08/22 03/08/22 20:40 20:52 21:52 Glucose 722 H* POC Glucose > 600 H* 512 H* 03/08/22 03/08/22 03/09/22 23:01 23:51 00:51 Glucose POC Glucose 496 H* 317 H* 296 H 03/09/22 03/09/22 03/09/22 01:01 02:02 03:05 Glucose 312 H* POC Glucose 201 H 192 H 03/09/22 03/09/22 03/09/22 04:02 04:28 04:44 Glucose POC Glucose 144 H 124 H 115 H 03/09/22 03/09/22 03/09/22 05:00 05:15 05:31 Glucose POC Glucose 120 H 139 H 125 H 03/09/22 03/09/22 03/09/22 06:08 06:28 07:34 Glucose 158 H POC Glucose 171 H 166 H 03/09/22 03/09/22 08:34 10:38 Glucose POC Glucose 171 H 162 H OUTPATIENT ANTIDIABETIC REGIMEN: * Novolog pump ASSESSMENT: * 36 year old admitted with DKA, started on insulin infusion last evening. Insulin drip rate at 2.4 unit/hr since 0600 this morning. Per notes, patient had run out of novolog insulin for pump at home. * Labs improving this morning, reasonable to transition off insulin drip. Patient does not have tubing for insulin pump with him, therefore will use SQ basal/bolus insulin for now. Notified provider. * Drip at 2.4 units/hr for last several hours, equivalent to ~58 units/day - will split 50/50 with basal bolus - plan to give Lantus 30 units x 1 now to he lp with drip transition * Lunch BSG trending down to 90 mg/dL - will have RN use looser CR for lunch coverage since now prompted to hold insulin drip. Patient already eating clear diet. Will have her recheck in an hour to ensure stable and likely will need to resume insulin drip for a couple hours while Lantus absorbed PLAN FOR INPATIENT GLYCEMIC CONTROL: * Hold outpatient oral diabetes medications * Basal insulin * Lantus 30 units x 1 (to overlap with insulin drip) * Continue insulin drip for now - likely could hold drip after a few hours of overlap with basal insulin / pending order entered * Bolus insulin - to be started after insulin drip stopped * NovoLog per scale ACHS or Q6hrs while NPO * Goal Range: Low 110 mg/dL - High 140 mg/dL * Correction Factor: 30 mg/dL/unit * Nutritional / Prandial insulin per carb ratio of 1 unit per 11 grams CHO consumed
[2022-03-09] MEDS: DEXTROSE 50% 50 ML SYRINGE IV PRN ×2 (12:46→13:02)
[2022-03-09] MEDS ORDERED: PENDING ORDER - INSULIN DRIP SCH (17:00)
--- NOTE | 2022-03-09 19:56 | Hospitalist Progress Note ---
Date of Service March 09, 2022 Assessment & Plan (1) Hyperglycemic crisis in diabetes mellitus: Plan: Diabetes type 1 DKA (diabetic ketoacidoses): Present on admission with abdominal pain, diarrhea with glucose above 700 Pt said that he was given the wrong insulin that was not working to keep his sugar down On admission Glucose was 722, Sodium of 125 and anion gap 14. Received IVF and started on IV insulin drip in the ER Anion gap closed Pharmacy on board for glycemic management most recent hab1c 9 Spoke to pharmacy about to transition to insulin pump, but Patient does not have tubing for insulin pump with him, will continue to use subq basal insulin certified diabetes educator on board Pt will need Rx for Aspart insulin ( not novolog as same is not on formulary) up to 50 units a day via insulin pump with refills. Continue monitor closely Chronic Diarrhea Stool biofire negative Will review outpatient chart to check if patient had any work up for celiac disease done Pt said that he supposed to get a colonoscopy done but in the past he can't ever get the prep done Continue monitor closely Depression Anxiety ADHD Last times pt refused to start on any psych meds (prefer to avoid medication) Might consider psych eval Behavior health liaison consult for now Ongoing tobacco abuse Counseled to quit smoking Nicotine patch DVT Px: Lovenox Code Status Full Code Admission and Anticipated Discharge Date Admission Date: March 08, 2022 Subjective Pt was seen and examined for follow up of DKA Lying in bed with no acute distress Pt said that he was given the wrong insulin that was not working to keep his sugar low he would like his diet to advance He said that he has been under alot of stress Denies any chest pain, palpitation, dizziness and sob Review of Systems Review of Systems: All systems reviewed & are unremarkable except as noted in Subjective Physical Exam Physical Exam: General- No acute distress Head- atraumatic Eyes- PERRL, EOMI, ENT- oropharynx clear Neck- supple, no JVD Lungs- clear to auscultation Heart- regular rhythm; no murmur Abdomen- normal bowel sounds, soft, +tenderness Extremities- no calf tenderness Neuro- alert, oriented x 3; PERRL, EOMI; no facial palsy; no dysarthria Skin- warm & dry Results & Data Results & Data ([facility]) Vital Signs (Past 12 Hours) Vital Signs Temp Pulse Resp BP Pulse Ox 03/09/22 15:33 36.7 C 71 16 120/78 98 03/09/22 08:19 36.6 C 86 16 119/72 96
[2022-03-10] MEDS: INSULIN ASPART PER UNIT SC SCH ×6 (00:22→20:57)
[2022-03-10 07:06] LABS: Hematocrit (blood only) 39.7 % (42-52); Hemoglobin 14.8 g/dL (14.0-18.0); Mean Corpuscular Hemoglobin 32.3 pg (25-34); Mean Corpuscular Hgb Conc 37.3 g/dL (32-36); Mean Corpuscular Volume 86.7 fL (80-100); Mean Platelet Volume 9.5 fL (7.4-10.4); Platelet Count 167 K/uL (130-400); RDW Coefficient of Variation 12.9 % (11.5-14.5); RDW Standard Deviation 41.1 fL (36.4-46.3); Red Blood Count 4.58 M/uL (4.7-6.1)
[2022-03-10 07:21] LABS: Creatinine Clr Calc Pharmacy 122.6 ml/min; Est GFR (African American) 131.1 ml/min; Est GFR (Non-African American) 113.1 ml/min; Potassium 3.5 mmol/L (3.5-5.1)
--- NOTE | 2022-03-10 08:42 | Pharmacy Report ---
Pharmacy Glycemic Short Note 2 - Date of Service March 10, 2022 - Glycemic Short BSG Results (Last 24 hours): 03/09/22 03/09/22 03/09/22 01:01 08:34 10:38 Glucose 312 H* POC Glucose 171 H 162 H 03/09/22 03/09/22 03/09/22 12:29 13:19 13:21 Glucose POC Glucose 90 317 H* 284 H 03/09/22 03/09/22 03/09/22 14:58 16:03 16:58 Glucose POC Glucose 248 H 213 H 191 H 03/09/22 03/09/22 03/09/22 18:31 19:30 21:47 Glucose POC Glucose 153 H 77 114 H 03/09/22 03/10/22 03/10/22 23:58 03:52 06:27 Glucose 214 H POC Glucose 212 H 192 H 03/10/22 07:54 Glucose POC Glucose 194 H OUTPATIENT ANTIDIABETIC REGIMEN: * Novolog pump - 3211-0095 : 1.1 unit/hr 5860-1889 : 1.2 unit/hr = ~27.2 basal total daily / CF 50 / CR 11 ASSESSMENT: 03/10 * Patient received total of 47 units of insulin + insulin drip yesterday. Insulin drip stopped yesterday evening * Fasting BSG 194 mg/dL - had received 30 units of basal yesterday. Will continue same basal today, may consider small titration tomorrow if fasting still >180 * Will continue with stress of 2 dosing for novolog which is similar to home insulin pump settings (tighter CF) 03/09 * 36 year old admitted with DKA, started on insulin infusion last evening. Insulin drip rate at 2.4 unit/hr since 0600 this morning. Per notes, patient had run out of novolog insulin for pump at home. * Labs improving this morning, reasonable to transition off insulin drip. Patient does not have tubing for insulin pump with him, therefore will use SQ basal/bolus insulin for now. Notified provider. * Drip at 2.4 units/hr for last several hours, equivalent to ~58 units/day - will split 50/50 with basal bolus - plan to give Lantus 30 units x 1 now to help with drip transition * Lunch BSG trending down to 90 mg/dL - will have RN use looser CR for lunch coverage since now prompted to hold insulin drip. Patient already eating clear diet. Will have her recheck in an hour to ensure stable and likely will need to resume insulin drip for a couple hours while Lantus absorbed PLAN FOR INPATIENT GLYCEMIC CONTROL: * Hold outpatient oral diabetes medications * Basal insulin * Lantus 30 units daily * Bolus insulin - to be started after insulin drip stopped * NovoLog per scale ACHS or Q6hrs while NPO * Goal Range: Low 110 mg/dL - High 140 mg/dL * Correction Factor: 30 mg/dL/unit * Nutritional / Prandial insulin per carb ratio of 1 unit per 11 grams CHO consumed
[2022-03-10] MEDS ORDERED: LANTUS PER UNIT CHARGE SQ SCH (09:00)
[2022-03-10] MEDS: NICOTINE 14 MG/24 HR PATCH TD SCH (09:08)
[2022-03-10] MEDS: ENOXAPARIN INJ 40 MG/0.4 ML SYR SQ SCH (09:09)
--- NOTE | 2022-03-10 11:10 | Gastrointestinal Consultation ---
Date of Consultation March 10, 2022 Assessment & Plan (1) Chronic diarrhea: (2) DKA (diabetic ketoacidosis): (3) Type 1 diabetes mellitus: This is a 36-year-old male with history of type 1 diabetes, admitted with DKA, hyperglycemia, and we are consulted for worsening diarrhea. Blood sugars have improved with treatment. Unfortunately, has been dealing with ongoing diarrhea multiple times per day for the last several months. Patient states outpatient colonoscopies have been attempted but unable to be completed as his blood sugar runs too high. On exam, abdomen is soft and nontender. Tolerated regular breakfast today. Labs are stable, vital signs stable. We will defer management of his DKA and hyperglycemia to his primary team Would recommend outpatient EGD and colonoscopy, can try to arrange GoLytely prep rather than MiraLAX prep which may avoid the hyperglycemia Consider endocrine referral for help with managing his diabetes GI will sign off, please call with questions Thank you for allowing us to participate in the care of this patient. Please call with any acute changes, questions or concerns. Please see addendum below with additional recommendation from my supervising physician. Supervising Physician Co-Signing Physician Notes I saw and evaluated the patient. We were asked to provide comment with regard to the patient's history of chronic diarrhea. The patient was previously seen by our office in the past and is to be scheduled for outpatient colonoscopy. The patient was admitted for complications related to his diabetes and what appears to be drug abuse. Physical examination Thin male in no obvious distress Impression: Patient with longstanding symptoms of diarrhea, given the history I wonder if this could be related to his longstanding diabetes. Would certainly recommend further evaluation as an outpatient with upper endoscopy in addition to colonoscopy to assess for underlying celiac disease or perhaps microscopic colitis. The patient reports that he had some difficulty with toleration of a MiraLAX bowel preparation in the past. Given this we would recommend that the patient have an outpatient Colyte bowel preparation as this is less likely to ca use blood sugar elevations. Patient also may benefit from further intensive management of his blood sugars with a anger control counselor prior to scheduling his procedures. Call with any additional questions or concerns History of Present Illness Reason for Consultation: wosrening diarrhea Requesting Physician: Dr. Villagran Attending Physician: Zahida Ahumada MD History of Present Illness This is a 36-year-old male with history of DM1, anxiety and mood disorder, history of chronic diarrhea, ongoing tobacco abuse. He is admitted with DKA, blood sugars have been 700 at home. He is being evaluated and treated for that, blood sugar better today, in the 200s. He tolerated a regular breakfast today. We are consulted for worsening chronic diarrhea. On arrival, CT with suggestion of possible rectal wall thickening. Labs with no leukocytosis, anemia, renal insufficiency. Stool culture was negative, C. difficile negative. Patient has been dealing with diarrhea daily for approximately 9 months. He has multiple loose, liquid brown BMs per day. Outpatient evaluation including infectious work-up, celiac testing has been negative. Imaging without colitis. He states he has been scheduled for colonoscopy multiple times, however, each time, he completes the prep, but due to elevated blood sugar, he is unable to have this performed. He is frustrated about this. Denies abdominal pain, fevers or chills, nausea vomiting, melena or hematochezia, chest pain or shortness of breath Allergies Allergy/AdvReac Type Severity Reaction Status Date / Time methyl salicylate Allergy Intermediate HIVES, Verified 03/08/22 21:22 "FEELS LIKE FIRE ON MY SKIN" codeine AdvReac Intermediate BECOMES Verified 03/08/22 21:22 VERY AGGRESSIVE Home Medications Medication Instructions Recorded Confirmed Type dicyclomine 10 mg capsule 10 mg PO Q6H PRN 04/14/20 03/08/22 History insulin aspart U-100 100 unit/mL 0 unit CONTINUOUS SUBCUTANEOUS 07/08/20 03/08/22 History subcutaneous solution INFUSION CONTINOUS Patient History Medical History Diabetes Disorder of male genital organs, unspecified DKA (diabetic ketoacidoses) Epigastric pain GERD (gastroesophageal reflux disease) Hx of psoriasis Hypertension Major depressive disorder, recurrent episode Rectal/anal hemorrhage Sebaceous cyst Suicidal ideation Tobacco abuse disorder Surgical History No pertinent past surgical history Family History Father Cardiovascular disease Diabetes Mother Diabetes Other No significant family history Social History Smoking Status: Current every day smoker Tobacco Type: Cigarettes Cigarettes Per Day: 1 PPD; Do You Dip or Chew Tobacco: No; Hx Alcohol Use: No Hx Substance Use: No Preferred Language: Liberian Communication Ability: Effective Twist Maker Required: No Beliefs That Will Affect Care: None marital status: Single Current Living Situation: Significant Other current occupational status: employed Other Information That Helps Us Care for You: No Feels Safe at Home: No Is there a partner from a previous relationship who is making you feel unsafe now?: No Any Concerns about Your Family Situation: No Would You Like to Speak to Someone About Your Situation: No Safety Concerns: Feels Safe At This Time Assistive Devices: None Review of Systems Review of Systems: All systems reviewed & are unremarkable except as noted in HPI & below Physical Exam Constitutional: WD/WN, vitals as above Eyes: PERRL, conjunctivae normal, anicteric sclerae ENMT: external ear and nose normal, oropharynx normal Respiratory: normal respiratory effort, lungs clear to auscultation Cardiovascular: RRR, no murmur, no edema Gastrointestinal (Abdomen): normal bowel sounds, soft, nontender, no hepato splenomegaly Skin: no rashes, warm and dry Psychiatric: A+Ox3, euthymic affect Results & Data ([facility]) Vital Signs (Past 12 Hours) Vital Signs Temp Pulse Resp BP Pulse Ox 03/10/22 08:19 36.5 C 70 16 134/85 99 Laboratory Results 03/10/22 03/10/22 03/10/22 Range/Units 07:54 06:27 06:27 WBC 4.90 (4.8-10.8) K/uL RBC 4.58 L (4.7-6.1) M/uL Hgb 14.8 (14.0-18.0) g/dL Hct 39.7 L (42-52) % MCV 86.7 (80-100) fL MCH 32.3 (25-34) pg MCHC 37.3 H (32-36) g/dL RDW Std Deviation 41.1 (36.4-46.3) fL RDW Coeff of Bhavik 12.9 (11.5-14.5) % Plt Count 167 (130-400) K/uL MPV 9.5 (7.4-10.4) fL Sodium 137 (136-145) mmol/L Potassium 3.5 (3.5-5.1) mmol/L Chloride 104 (98-107) mmol/L Carbon Dioxide 30 (21-32) mmol/L Anion Gap 3 (3-11) BUN 12 (6-23) mg/dl Creatinine 0.86 (0.6-1.4) mg/dl Est Cr Clr Drug Dosing 122.6 ml/min Est GFR ( Amer) 131.1 ml/min Est GFR (Non-Af Amer) 113.1 ml/min BUN/Creatinine Ratio 14.0 (10-20) Glucose 214 H (70-99(Fasting)) mg/dl POC Glucose 194 H (70-99) mg/dl Calcium 8.0 L (8.5-10.1) mg/dl 03/10/22 03/09/22 03/09/22 Range/Units 03:52 23:58 21:47 WBC (4.8-10.8) K/uL RBC (4.7-6.1) M/uL Hgb (14.0-18.0) g/dL Hct (42-52) % MCV (80-100) fL MCH (25-34) pg MCHC (32-36) g/dL RDW Std Deviation (36.4-46.3) fL RDW Coeff of Bhavik (11.5-14.5) % Plt Count (130-400) K/uL MPV (7.4-10.4) fL Sodium (136-145) mmol/L Potassium (3.5-5.1) mmol/L Chloride (98-107) mmol/L Carbon Dioxide (21-32) mmol/L Anion Gap (3-11) BUN (6-23) mg/dl Creatinine (0.6-1.4) mg/dl Est Cr Clr Drug Dosing ml/min Est GFR ( Amer) ml/min Est GFR (Non-Af Amer) ml/min BUN/Creatinine Ratio (10-20) Glucose (70-99(Fasting)) mg/dl POC Glucose 192 H 212 H 114 H (70-99) mg/dl Calcium (8.5-10.1) mg/dl 03/09/22 03/09/22 03/09/22 Range/Units 19:30 18:31 16:58 WBC (4.8-10.8) K/uL RBC (4.7-6.1) M/uL Hgb (14.0-18.0) g/dL Hct (42-52) % MCV (80-100) fL MCH (25-34) pg MCHC (32-36) g/dL RDW Std Deviation (36.4-46.3) fL RDW Coeff of Bhavik (11.5-14.5) % Plt Count (130-400) K/uL MPV (7.4-10.4) fL Sodium (136-145) mmol/L Potassium (3.5-5.1) mmol/L Chloride (98-107) mmol/L Carbon Dioxide (21-32) mmol/L Anion Gap (3-11) BUN (6-23) mg/dl Creatinine (0.6-1.4) mg/dl Est Cr Clr Drug Dosing ml/min Est GFR ( Amer) ml/min Est GFR (Non-Af Amer) ml/min BUN/Creatinine Ratio (10-20) Glucose (70-99(Fasting)) mg/dl POC Glucose 77 153 H 191 H (70-99) mg/dl Calcium (8.5-10.1) mg/dl 03/09/22 03/09/22 03/09/22 Range/Units 16:03 14:58 13:21 WBC (4.8-10.8) K/uL RBC (4.7-6.1) M/uL Hgb (14.0-18.0) g/dL Hct (42-52) % MCV (80-100) fL MCH (25-34) pg MCHC (32-36) g/dL RDW Std Deviation (36.4-46.3) fL RDW Coeff of Bhavik (11.5-14.5) % Plt Count (130-400) K/uL MPV (7.4-10.4) fL Sodium (136-145) mmol/L Potassium (3.5-5.1) mmol/L Chloride (98-107) mmol/L Carbon Dioxide (21-32) mmol/L Anion Gap (3-11) BUN (6-23) mg/dl Creatinine (0.6-1.4) mg/dl Est Cr Clr Drug Dosing ml/min Est GFR ( Amer) ml/min Est GFR (Non-Af Amer) ml/min BUN/Creatinine Ratio (10-20) Glucose (70-99(Fasting)) mg/dl POC Glucose 213 H 248 H 284 H (70-99) mg/dl Calcium (8.5-10.1) mg/dl 03/09/22 03/09/22 03/09/22 Range/Units 13:19 12:29 01:01 WBC (4.8-10.8) K/uL RBC (4.7-6.1) M/uL Hgb (14.0-18.0) g/dL Hct (42-52) % MCV (80-100) fL MCH (25-34) pg MCHC (32-36) g/dL RDW Std Deviation (36.4-46.3) fL RDW Coeff of Bhavik (11.5-14.5) % Plt Count (130-400) K/uL MPV (7.4-10.4) fL Sodium (136-145) mmol/L Potassium (3.5-5.1) mmol/L Chloride (98-107) mmol/L Carbon Dioxide (21-32) mmol/L Anion Gap (3-11) BUN (6-23) mg/dl Creatinine (0.6-1.4) mg/dl Est Cr Clr Drug Dosing ml/min Est GFR ( Amer) ml/min Est GFR (Non-Af Amer) ml/min BUN/Creatinine Ratio (10-20) Glucose 312 H* (70-99(Fasting)) mg/dl POC Glucose 317 H* 90 (70-99) mg/dl Calcium (8.5-10.1) mg/dl Diagnostic Findings CTAP: Lower chest: No acute abnormality Liver: Unremarkable. No focal lesions are seen. Gallbladder and biliary tree: No calcified gallstones. Normal caliber wall. No intra- or extrahepatic biliary ductal dilation. Pancreas: Unremarkable, no focal lesions. Spleen: Unremarkable. Adrenals: Unremarkable. Kidneys and ureters: Subcentimeter hypodensities are too small to characterize. Bladder: Unremarkable. Reproductive organs: Unremarkable. Bowel: Mucosal thickening is seen in the rectum, although evaluation is limited by a paucity of intra-abdominal fat. Lymph nodes Retroperitoneal: Unremarkable. Mesenteric: Unremarkable. Pelvic: Unremarkable. Peritoneum: Normal. Vessels: Unremarkable. Abdominal wall: Unremarkable. Bones: Degenerative changes in the visualized spine. IMPRESSION: Possible wall thickening in the rectum, clinical correlation for proctitis is recommended. Otherwise no acute abnormalities are seen. (1) DKA (diabetic ketoacidosis) Diabetes mellitus complication detail: without coma Diabetes mellitus type: other specified (including ABE) Qualified Code(s): E13.10 - Other specified d iabetes mellitus with ketoacidosis without coma (2) Type 1 diabetes mellitus Diabetes mellitus complication status: with hyperglycemia Qualified Code(s): E10.65 - Type 1 diabetes mellitus with hyperglycemia
--- NOTE | 2022-03-10 14:32 | Hospitalist Progress Note ---
Date of Service March 10, 2022 Assessment & Plan (1) Hyperglycemic crisis in diabetes mellitus: Plan: Diabetes type 1 DKA (diabetic ketoacidoses): Present on admission with abdominal pain, diarrhea with glucose above 700 Pt said that he was given the wrong insulin that was not working to keep his sugar down On admission Glucose was 722, Sodium of 125 and anion gap 14. Received IVF and started on IV insulin drip in the ER Anion gap closed Insulin drip transitioned to sq Pharmacy on board for glycemic management Most recent hab1c 9 Spoke to pharmacist today. Patient to have someone bring his insulin pump supplies so we can refill and start it prior to dc tomorrow special educator on board Pt will need Rx for Aspart insulin ( not novolog as same is not on formulary) via insulin pump with refills. Continue monitor closely Needs MTM DM on discharge Chronic Diarrhea Stool biofire negative Reports his c-scope had had to be canceled 3x due to bowel prep causing his blood glucose to go out of control GI recs noted. GI will plan to do prep with one that does not affect blood glucose as much I also counseled patient that whenever it is scheduled next, he needs to coordinate with MTM DM so that blood glucose is well controlled with prep Depression Anxiety ADHD Patient stated he will like to talk to someone in psych about this prior to dc Behavior health liaison consult f Ongoing tobacco abuse Counseled to quit smoking Nicotine patch DVT Px: Lovenox Code Status Full Code Admission and Anticipated Discharge Date Admission Date: March 08, 2022 Subjective Patient seen and examined Reports some abd discomfort, chronic diarrhea Denied any fevers, chills, nausea, vomiting Denied dysuria, freq, urgency, hematuria, Reports anxiety and sometimes depression. Denied suicidal/homicidal ideation Review of Systems Review of Systems: All systems reviewed & are unremarkable except as noted in Subjective Physical Exam Constitutional: + well hydrated; no acute distress Eyes: PERRL, conjunctivae normal, anicteric sclerae ENMT: external ear and nose normal, oropharynx normal Respiratory: normal respiratory effort, lungs clear to auscultation Cardiovascular: RRR, no murmur, no edema Gastrointestinal (Abdomen): normal bowel sounds, soft, nontender, no hepatosplenomegaly Musculoskeletal: no cyanosis or clubbing, extremities motor strength 5/5 Neurologic: PERRL, EOMI, accommodation nl, no face palsy, no dysarthria Psychiatric: A+Ox3, euthymic affect Results & Data Results & Data ([facility]) Vital Signs (Past 12 Hours) Vital Signs Temp Pulse Resp BP Pulse Ox 03/10/22 08:19 36.5 C 70 16 134/85 99 Laboratory Results Abnormal lab results 03/09/22 03/09/22 03/09/22 Range/Units 16:58 18:31 21:47 RBC (4.7-6.1) M/uL Hct (42-52) % MCHC (32-36) g/dL Glucose (70-99(Fasting)) mg/dl POC Glucose 191 H 153 H 114 H (70-99) mg/dl Calcium (8.5-10.1) mg/dl 03/09/22 03/10/22 03/10/22 Range/Units 23:58 03:52 06:27 RBC 4.58 L (4.7-6.1) M/uL Hct 39.7 L (42-52) % MCHC 37.3 H (32-36) g/dL Glucose (70-99(Fasting)) mg/dl POC Glucose 212 H 192 H (70-99) mg/dl Calcium (8.5-10.1) mg/dl 03/10/22 03/10/22 03/10/22 Range/Units 06:27 07:54 12:04 RBC (4.7-6.1) M/uL Hct (42-52) % MCHC (32-36) g/dL Glucose 214 H (70-99(Fasting)) mg/dl POC Glucose 194 H 236 H (70-99) mg/dl Calcium 8.0 L (8.5-10.1) mg/dl
[2022-03-10] MEDS: LOPERAMIDE HCL 2 MG CAP PO PRN (21:04)
[2022-03-11] MEDS: LOPERAMIDE HCL 2 MG CAP PO PRN (04:39)
[2022-03-11 08:06] LABS: BUN Creatinine Ratio 17.2 (10-20); Calcium 8.1 mg/dl (8.5-10.1); Creatinine Clr Calc Pharmacy 164.7 ml/min; Est GFR (African American) 148.1 ml/min; Est GFR (Non-African American) 127.7 ml/min; Potassium 4.2 mmol/L (3.5-5.1)
[2022-03-11] MEDS: NICOTINE 14 MG/24 HR PATCH TD SCH (08:33)
[2022-03-11] MEDS: ENOXAPARIN INJ 40 MG/0.4 ML SYR SQ SCH (08:34)
[2022-03-11] MEDS: INSULIN ASPART PER UNIT SC SCH (08:35)
[2022-03-11] MEDS ORDERED: INSULIN ASPART 100 UNITS/ML VIAL SC PRN (08:45)
[2022-03-11] MEDS ORDERED: NovoLOG INSULIN PUMP SCH ×2 (09:30→11:30)
--- NOTE | 2022-03-11 11:08 | Pharmacy Report ---
Pharmacy Glycemic Short Note 2 - Date of Service March 11, 2022 - Glycemic Short BSG Results (Last 24 hours): 03/10/22 03/10/22 03/10/22 12:04 16:58 20:27 Glucose POC Glucose 236 H 72 252 H 03/10/22 03/10/22 03/11/22 23:35 23:52 00:17 Glucose POC Glucose 36 L* 71 44 L* 03/11/22 03/11/22 03/11/22 00:18 00:45 04:30 Glucose POC Glucose 54 L* 130 H 351 H* 03/11/22 03/11/22 03/11/22 06:51 08:11 08:12 Glucose 469 H* POC Glucose 420 H* 383 H* 03/11/22 08:13 Glucose POC Glucose 404 H* OUTPATIENT ANTIDIABETIC REGIMEN: * Novolog pump - [id number] : 1.1 unit/hr [id number] : 1.2 unit/hr = ~27.2 basal total daily / CF 50 / CR 11 ASSESSMENT: 03/11 * Patient received total of 55 units of insulin yesterday, of which 30 units were basal insulin * Patient given 10 units of novolog at HS time last night. No carbs documented, so unclear if patient ate at HS time? RN from this morning was not sure. BSGs dropping at midnight. Patient reports he doesn't think he had anything to eat at that time. * Discussed with patient and because he had low BSG at midnight, RN had let him eat snacks overnight without coverage. * Fasting BSG elevated this morning in the 400s. Notified provider. Patient given insulin SQ coverage for breakfast. Discussed with provider and had patient reattach insulin pump back on as patient likely to be discharged today. Would anticipate BSGs to improve with pump attached, will monitor 03/10 * Patient received total of 47 units of insulin + insulin drip yesterday. Insulin drip stopped yesterday evening * Fasting BSG 194 mg/dL - had received 30 units of basal yesterday. Will continue same basal today, may consider small titration tomorrow if fasting still >180 * Will continue with stress of 2 dosing for novolog which is similar to home insulin pump settings (tighter CF) 03/09 * 36 year old admitted with DKA, started on insulin infusion last evening. Insulin drip rate at 2.4 unit/hr since 0600 this morning. Per notes, patient had run out of novolog insulin for pump at home. * Labs improving this morning, reasonable to transition off insulin drip. Patient does not have tubing for insulin pump with him, therefore will use SQ basal/bolus insulin for now. Notified provider. * Drip at 2.4 units/hr for last several hours, equivalent to ~58 units/day - will split 50/50 with basal bolus - plan to give Lantus 30 units x 1 now to help with drip transition * Lunch BSG trending down to 90 mg/dL - will have RN use looser CR for lunch cov erage since now prompted to hold insulin drip. Patient already eating clear diet. Will have her recheck in an hour to ensure stable and likely will need to resume insulin drip for a couple hours while Lantus absorbed PLAN FOR INPATIENT GLYCEMIC CONTROL: * Insulin pump resumed this morning around ~1000. Discussed with patient and he feels comfortable with managing his own pump. Patient filled out required paperwork for hospital insulin pump policy.
--- NOTE | 2022-03-11 14:07 | Discharge Summary ---
Date of Service March 11, 2022 Admission HPI Per Admitting Provider History obtained from patient, family, and records. Medical history significant for DM 1,, anxiety/mood disorder, history pneumomediastinum as per records, chronic diarrhea, ongoing tobacco abuse. Last confinement January 2021 for DKA. Last week, patient ran out of prescribed insulin aspart for his insulin pump. No refills given inability to follow[facility]up with [facility]. Patient used leftover NovoLog. Blood sugars noted to be 700s the last 2 days. Patient under a lot of stress with his girlfriend having a recent accident. Worsening of achy abdominal pain and chronic diarrhea symptoms which she has had for the last 9 months. Colonoscopy still has to be scheduled as per patient. No fever, no chills. No unusual chest pain, SOB. BSG 700s upon arrival at the ER IV insulin initiated at the ER. Medical Historyas above Surgical History : Dental surgery Family History : Breast cancer, psychiatric illness Personal/Social history : Half pack daily, occasional EtOH intake, prior work at the [employer] Admission Exam Per Admitting Provider GENERAL: uncomfortable, anxious, older than stated age, no respiratory distress SKIN: Normal color, warm HEENT: Bespectacled, [place] palpebral conjunctivae, no ptosis, dry buccal mucosa NECK : Supple, no tenderness CHEST : CTA, no tenderness HEART : RRR, no obvious murmurs ABDOMEN: Flat, central abdominal tenderness EXTREMITIES : No LE swelling/tenderness, no other conspicuous deformities noted NEUROLOGIC : Coherent, no facial asymmetry, no other gross focality Principal Diagnosis DKA Chronic diarrhea Discharge Exam Constitutional + well hydrated; no acute distress Eyes PERRL, conjunctivae normal, anicteric sclerae ENMT external ear and nose normal, oropharynx normal Respiratory normal respiratory effort, lungs clear to auscultation Cardiovascular RRR, no murmur, no edema Gastrointestinal (Abdomen) normal bowel sounds, soft, nontender, no hepatosplenomegaly Musculoskeletal no cyanosis or clubbing, extremities motor strength 5/5 Neurologic PERRL, EOMI, accommodation nl, no face palsy, no dysarthria Psychiatric A+Ox3, euthymic affect Discharge Data Allergies Allergy/AdvReac Type Severity Reaction Status Date / Time methyl salicylate Allergy Intermediate HIVES, Verified 03/08/22 21:22 "FEELS LIKE FIRE ON MY SKIN" codeine AdvReac Intermediate BECOMES Verified 03/08/22 21:22 VERY AGGRESSIVE Consultations 03/08/22 21:45 ED Decision to Admit Stat 03/09/22 14:44 Consult Behavioral Health Liaison Routine 03/09/22 20:19 Consult Gastroenterology Routine Ordered Studies 03/08/22 22:29 CT abd pelvis IV con only Urgent Lower chest: No acute abnormality Liver: Unremarkable. No focal lesions are seen. Gallbladder and biliary tree: No calcified gallstones. Normal caliber wall. No intra- or extrahepatic biliary ductal dilation. Pancreas: Unremarkable, no focal lesions. Spleen: Unremarkable. Adrenals: Unremarkable. Kidneys and ureters: Subcentimeter hypodensities are too small to characterize. Bladder: Unremarkable. Reproductive organs: Unremarkable. Bowel: Mucosal thickening is seen in the rectum, although evaluation is limited by a paucity of intra-abdominal fat. Lymph nodes Retroperitoneal: Unremarkable. Mesenteric: Unremarkable. Pelvic: Unremarkable. Peritoneum: Normal. Vessels: Unremarkable. Abdominal wall: Unremarkable. Bones: Degenerative changes in the visualized spine. IMPRESSION: Possible wall thickening in the rectum, clinical correlation for proctitis is recommended. Otherwise no acute abnormalities are seen. Diabetes Follow up Diabetes Follow-up Needed for HgbA1c >9% Hospital Course (1) Hyperglycemic crisis in diabetes mellitus: Diabetes type 1 DKA (diabetic ketoacidoses): Present on admission with abdominal pain, diarrhea with glucose above 700 Pt said that he was given the wrong insulin that was not working to keep his sugar down On admission Glucose was 722, Sodium of 125 and anion gap 14. Received IVF and started on IV insulin drip in the ER Anion gap closed Insulin drip transitioned to Pharmacy on board for glycemic management Most recent hab1c 9 Provided DM education Patient's insulin pump refilled inpatient and applied I also sent scripts to his pharm Needs to follow up with [facility] Chronic Diarrhea Stool analysis was negative GI evaluated patient and will call patient for outpatient endoscopies Reports loperamide helps with his diarrhea while inpt. Was prescribed on discharge Depression Anxiety ?ADHD Patient to follow up with [facility] outpatient Ongoing tobacco abuse Counseled to quit smoking Nicotine patch Total Time Total Time Spent Total Time Spent (In Minutes): 40 Total Time Includes: Examination of the Patient, Discharge Planning, Medication Reconciliation and Communication With Other Providers Discharge Plan Discharge Items Patient Disposition: Home - Self-Care Reason For Visit: HYPERGLYCEMIC CRISIS Discharge Diagnosis: Diabetic ketoacidosis Activity: Resume your previous activity Non-emergency contact: Primary Care Provider and Resort Desk Clerk Call non-emergency contact if: you have any medication questions and your symptoms worsen Follow-up/Referrals: [facility] [Other] (The [facility] will contact you regarding your Diabetic Management. ) [facility] [Outside] - 04/02/22 10:15 am Didi Pandya MD [Outside Practitioners] - 03/17/22 2:00 pm (Date & Time 03/17/2022 2:00 PM Provider Didi Pandya MD [facility] ) Diet: Carb Count or DM1 Addtl Attending Provider Instructions: Mr Gonzalez You came to the hospital complaining of abdominal discomfort, chronic diarrhea and high blood glucose. You were managed for diabetic ketoacidosis. Your insulin pump was refilled. You were also seen by Gastroenterology and need to follow up with them for endoscopy You should also follow up with [facility] for your anxiety and related problems. Please ensure follow up with your Primary Doctor. It was a pleasure taking care of you. Pending Studies at Discharge: No Stand-Alone Forms: My [facility] [place], Work/School Release, Smoking Cessation Medications and DC Order Prescriptions: New loperamide 2 mg Capsule 2 mg PO Q6H PRN (Reason: loose stool) Qty: 30 RF: 0 Continued dicyclomine 10 mg capsule 10 mg PO Q6H PRN (Reason: IBS) RF: 0 Changed insulin aspart U-100 100 unit/mL solution See Rx Instructions .ROUTE .COMPLEX 30 Days Qty: 10 RF: 1 Discharge Orders: Discharge Order (Routine); Ordered 03/11/22 Ordered By: Zahida Ahumada Admission Data Admit Date/Time: 03/08/22 22:31 Attending Provider: Zahida Ahumada I. Admit Provider: Erick Villagran Primary Care Provider: Kylah Orellana Other Providers: Erick Villagran ; Rick Cruz ; Casi Bojorquez ; Dc Hanson ; Griselda Gonzalez ; Jeffrey Tuttle ; Milton Rashid ; Andreea Cabrera ; Manolo Jose ; Shana Restrepo ; Julianne Joiner ; Nadiya Sparrow ; Melany Messina ; Marcel Ramirez ; Jesus Rhodes Other Interventions: Discharge Summary Assessment (RN) Last Done: 03/11/22 14:11
== END 2022-03-11 15:01 | disposition home or self-care (01) | DRG 638 ==
LOC: ED 20:12 → SUATTDRO 22:31 → 3W 22:31

== ENCOUNTER 2022-09-28 13:17 | Inpatient (IN) ==
[2022-09-28] MEDS ORDERED: ONDANSETRON INJ 2 MG/ML 2 ML VIAL ONE (13:54)
[2022-09-28 14:29] LABS: Basophils # (auto) 0.02 K/uL (0-0.2); Basophils % (auto) 0.1 %; Hematocrit (blood only) 47.1 % (40.1-51.0); Hemoglobin 17.9 g/dl (14.0-18.0); Immature Granulocytes # (auto) 0.12 K/uL (0.00-0.02); Immature Granulocytes % (auto) 0.6 %; Lymphocytes # (auto) 0.73 K/uL (1.2-3.4); Lymphocytes % (auto) 3.6 %; Mean Corpuscular Hemoglobin 32.1 pg (25.0-34.0); Mean Corpuscular Volume 84.6 fL (80.0-100.0); Mean Platelet Volume 9.6 fL (9.4-12.4); Monocytes # (auto) 1.18 K/uL (0.24-0.82); Monocytes % (auto) 5.9 %; Neutrophils % (auto) 89.8 %; Platelet Count 300 K/uL (130-400); RDW Coefficient of Variation 12.4 % (11.5-14.5); Red Blood Count 5.57 M/uL (4.63-6.08); White Blood Count 20.15 K/ul (4.8-10.8)
[2022-09-28 14:48] LABS: Appearance Urine Clear (Clear); Bacteria Urine Automated Negative (Negative); Bilirubin Urine Negative (Negative); Blood Urine Negative (Negative); Color Urine Yellow; Glucose Urine UA 3+ (Negative); Ketones Urine 3+ (Negative); Leukocyte Esterase Urine Negative (Negative); Nitrite Urine Negative (Negative); Protein Urine 1+ (Negative); Specific Gravity Urine 1.028 (1.000-1.030); Urobilinogen Urine Negative (Negative); pH Urine 5.5 (4.5-7.5)
[2022-09-28 14:58] LABS: Albumin Globulin Ratio 1.8 (0.9-2); Albumin Level 5.1 gm/dl (3.4-5.0); BUN Creatinine Ratio 22.6 (10-20); Bilirubin,Total 1.6 mg/dl (0.2-1.0); Creatinine Clr Calc Pharmacy 75.2 ml/min; Est GFR (African American) 71.2 ml/min; Est GFR (Non-African American) 61.4 ml/min; Globulin 2.9 gm/dl (2.5-4.0); Potassium 3.8 mmol/L (3.5-5.1)
[2022-09-28] MEDS ORDERED: SODIUM CHLORIDE 0.9% 1000ML 2,000 ML IV ONE (15:05)
--- NOTE | 2022-09-28 15:40 | Emergency Department Note ---
Impression & Plan DKA (diabetic ketoacidoses), Vomiting, Type 1 diabetes mellitus, Dehydration, JESSIE (acute kidney injury) ED Provider Note NAME: RICK VICTOR AGE: 37 SEX: M : 1985 ARRIVES VIA: Walk-In INFORMANT: Patient, ED PROVIDER(S): Rufino Raymundo DO CHIEF COMPLAINT: Vomiting HPI: The patient is a 37-year-old male who presented to the emergency department for an evaluation of nausea vomiting. The patient has been experiencing symptoms over the course the last 2 to 3 days. He does have a history of insulin-dependent diabetes. He also has a history of DKA. He has been noticing increased urinary frequency. He also notices chest pain and increase in his GERD symptoms. He has not been seen by his family doctor for the symptoms. He is continue to use his insulin pump. The patient's had significant decreased p.o. intake over the course the last 24 hours especially. Has had multiple episodes of emesis. ROS: See above HPI for pertinent positives & negatives. A total of 10 systems reviewed and were otherwise negative. PAST MEDICAL HISTORY: See Below PAST SURGICAL HISTORY: See Below FAMILY HISTORY: See Below SOCIAL HISTORY: See Below HOME MEDICATIONS: See Below ALLERGIES: See Below VITALS: See Below PHYSICAL EXAMINATION: GENERAL: Patient is awake alert in no acute distress patient is resting comfort ably and showing no signs of anxiety EYES: The conjunctivae are clear. The pupils are round and reactive. EARS, NOSE, MOUTH AND THROAT: The nose is without any evidence of any deformity. Mucous membranes are dry. NECK: The neck is nontender and supple. RESPIRATORY: Normal respiratory effort is noted there is no evidence of wheezing rhonchi or rales CARDIOVASCULAR: Tachycardic with regular heart sounds were noted auscultation. There is no definite murmur. GASTROINTESTINAL: The abdomen is soft. Abdomen is nontender. MUSCULOSKELETAL/EXTREMITIES: There is no evidence of gross deformity full range of motion is noted in the hips and shoulders. SKIN: There is no obvious evidence of any rash. There are no petechiae, pallor or cyanosis noted. NEUROLOGIC: Patient is awake alert and oriented x3 strength is symmetric patellar reflexes are 2+ bilaterally MEDICAL DECISION MAKING: The patient is a 37-year-old male who presented to the emergency department for an evaluation of nausea and vomiting. He has a history of diabetes. He has had diabetes with DKA in the past. He does have an insulin pump which is likely why he is still not in severe DKA. He was treated with IV fluids and IV antiemetics. I discussed the patient's laboratory and radiographic studies with him. He still continues to have significant nausea. The patient was reevaluate d multiple times. He was feeling much better on subsequent reevaluation however given his underlying condition I discussed his condition with the on-call [facility] hospitalist group. They have agreed to evaluate the patient in the emergency department for further management and disposition. Triage Nursing notes reviewed. Prior medical records reviewed Vital Signs: reviewed and remarkable for tachycardia. Differential diagnosis: Gastroenteritis, food borne illness, infections, appendicitis, diverticulitis, inflammatory bowel disease, obstruction, GI bleed, biliary pathology, volvulus, as well as other pathologies. ER treatment provided: See below Diagnostics interpreted by me: ECG: EKG was obtained in the emergency department. My interpretation is normal sinus rhythm at 99 bpm. There is no ectopy. There is no acute ST segment abnormalities noted. This was compared to a tracing from January 31, 2021. No changes were noted. Cardiac Monitoring: An order was placed for continuous cardiac monitoring. The monitor shows a rate of 107 bpm with sinus tachycardia. Laboratory studies: As stated above and show below. Imaging studies: See below. Radiographic imaging was reviewed by myself Consultation(s): I discussed this case with Meenakshi who is on-call for the [facility] hospitalist group. Past Med/Surg History Medical History Diabetes Disorder of male genital organs, unspecified DKA (diabetic ketoacidoses) Epigastric pain GERD (gastroesophageal reflux disease) Hx of psoriasis Hypertension Major depressive disorder, recurrent episode Rectal/anal hemorrhage Sebaceous cyst Suicidal ideation Tobacco abuse disorder Surgical History No pertinent past surgical history Family History Father Cardiovascular disease Diabetes Mother Diabetes Other No significant family history Social History Smoking Status: Current every day smoker Tobacco Type: Cigarettes Cigarettes Per Day: 1 PPD; Hx Alcohol Use: No Hx Substance Use: No Preferred Language: Irish Communication Ability: Effective Supervisor [employer] Required: No Beliefs That Will Affect Care: None marital status: Single Current Living Situation: Significant Other current occupational status: employed Feels Safe at Home: Yes Assistive Devices: None Allergies Allergies Allergy/AdvReac Type Severity Reaction Status Date / Time methyl salicylate Allergy Intermediate HIVES, Verified 09/28/22 18:53 "FEELS LIKE FIRE ON MY SKIN" codeine AdvReac Intermediate BECOMES Verified 09/28/22 18:53 VERY AGGRESSIVE Home Meds Home Medications Medication Instructions Recorded Confirmed insulin aspart U-100 100 unit/mL 0 unit continuous subcutaneous 09/28/22 09/28/22 subcutaneous solution infusion CONTINOUS Results & Data (ED) Vital Signs Vital Signs - 24 hr 09/28/22 13:21 09/28/22 17:00 09/28/22 19:00 Temperature 36.7 C Temperature Source Temporal Artery Scan Pulse Rate 118 H Pulse Rate [Apical] 120 H 107 H Respiratory Rate 18 16 18 Respiratory Effort / Characteristics Non-Labored Non-Labored Non-Labored Respiratory Depth Normal Normal Normal Respiratory Pattern Regular Blood Pressure 149/91 H Blood Pressure [Left Arm] 130/73 119/65 Blood Pressure Mean 110 Blood Pressure Mean [Left Arm] 92 83 Blood Pressure Position Sitting Pulse Oximetry 100 99 98 Oxygen Delivery Method Room Air Room Air Room Air Sepsis Recent Fever Within 48 Hours No Sepsis New/Unexplained Change in Mental Status No Sepsis Action Taken by Nursing No Action Required Home Medications Current Medication List: was personally reviewed by me Laboratory Data Attestation: I reviewed the patient's lab results. 09/28/22 14:00 09/28/22 14:00 Lab Results 09/28/22 09/28/22 09/28/22 Range/Units 14:00 14:00 14:00 WBC 20.15 H (4.8-10.8) K/ul RBC 5.57 (4.63-6.08) M/uL Hgb 17.9 (14.0-18.0) g/dl Hct 47.1 (40.1-51.0) % MCV 84.6 (80.0-100.0) fL MCH 32.1 (25.0-34.0) pg MCHC 38.0 H (32.0-36.0) g/dL RDW Std Deviation 38.0 (36.4-46.3) fL RDW Coeff of Bhavik 12.4 (11.5-14.5) % Plt Count 300 (130-400) K/uL MPV 9.6 (9.4-12.4) fL Immature Gran % (Auto) 0.6 % Neut % (Auto) 89.8 % Lymph % (Auto) 3.6 % [place] % (Auto) 5.9 % Eos % (Auto) 0.0 % Baso % (Auto) 0.1 % Neut # (Auto) 18.10 H (1.4-6.5) K/uL Lymph # (Auto) 0.73 L (1.2-3.4) K/uL [place] # (Auto) 1.18 H (0.24-0.82) K/uL Eos # (Auto) 0.00 (0-0.50) K/uL Baso # (Auto) 0.02 (0-0.2) K/uL Immature Gran # (Auto) 0.12 H (0.00-0.02) K/uL VBG pH (7.36-7.41) VBG pCO2 (38-50) mmHg VBG pO2 mmHg VBG HCO3 mmol/L VBG O2 Saturation % VBG Base Excess mEq/L Sodium 130 L (136-145) mmol/L Potassium 3.8 (3.5-5.1) mmol/L Chloride 87 L (98-107) mmol/L Carbon Dioxide 26 (21-32) mmol/L Anion Gap 17 H (3-11) BUN 33 H (6-23) mg/dl Creatinine 1.46 H (0.6-1.4) mg/dl Est Cr Clr Drug Dosing 75.2 ml/min Est GFR ( Amer) 71.2 ml/min Est GFR (Non-Af Amer) 61.4 ml/min BUN/Creatinine Ratio 22.6 H (10-20) Glucose 317 H* (70-99(Fasting)) mg/dl POC Glucose (70-99) mg/dl Calcium 10.0 (8.5-10.1) mg/dl Total Bilirubin 1.6 H (0.2-1.0) mg/dl AST 21 (13-39) U/L ALT 30 (7-52) U/L Alkaline Phosphatase 113 H (34-104) U/L Total Creatine Kinase 138 (30-223) U/L Troponin I High Sens 20.3 H (0-20) pg/ml Total Protein 8.0 (6.0-8.3) gm/dl Albumin 5.1 H (3.4-5.0) gm/dl Globulin 2.9 (2.5-4.0) gm/dl Albumin/Globulin Ratio 1.8 (0.9-2) Urine Color Yellow Urine Appearance Clear (Clear) Urine pH 5.5 (4.5-7.5) Ur Specific [place] 1.028 (1.000-1.030) Urine Protein 1+ H (Negative) Urine Glucose (UA) 3+ H (Negative) Urine Ketones 3+ H (Negative) Urine Blood Negative (Negative) Urine Nitrite Negative (Negative) Urine Bilirubin Negative (Negative) Urine Urobilinogen Negative (Negative) Ur Leukocyte Esterase Negative (Negative) Urine WBC (Auto) 1-5 (0-5) /hpf Urine RBC (Auto) 5-10 H (0-4) /hpf U Hyaline Cast (Auto) 10-30 H (0-5) /lpf U Epithel Cells (Auto) 10-20 H (0-5) /lpf Urine Bacteria (Auto) Negative (Negative) SARS-CoV-2 (PCR) (Negative) Influenza Type A (PCR) (Neg) Influenza Type B (PCR) (Neg) RSV (RT-PCR) (Neg) 09/28/22 09/28/22 09/28/22 Range/Units 17:17 17:33 Unknown WBC (4.8-10.8) K/ul RBC (4.63-6.08) M/uL Hgb (14.0-18.0) g/dl Hct (40.1-51.0) % MCV (80.0-100.0) fL MCH (25.0-34.0) pg MCHC (32.0-36.0) g/dL RDW Std Deviation (36.4-46.3) fL RDW Coeff of Bhavik (11.5-14.5) % Plt Count (130-400) K/uL MPV (9.4-12.4) fL Immature Gran % (Auto) % Neut % (Auto) % Lymph % (Auto) % [place] % (Auto) % Eos % (Auto) % Baso % (Auto) % Neut # (Auto) (1.4-6.5) K/uL Lymph # (Auto) (1.2-3.4) K/uL [place] # (Auto) (0.24-0.82) K/uL Eos # (Auto) (0-0.50) K/uL Baso # (Auto) (0-0.2) K/uL Immature Gran # (Auto) (0.00-0.02) K/uL VBG pH 7.41 (7.36-7.41) VBG pCO2 40 (38-50) mmHg VBG pO2 61 mmHg VBG HCO3 25 mmol/L VBG O2 Saturation 93.4 % VBG Base Excess 0.7 mEq/L Sodium (136-145) mmol/L Potassium (3.5-5.1) mmol/L Chloride (98-107) mmol/L Carbon Dioxide (21-32) mmol/L Anion Gap (3-11) BUN (6-23) mg/dl Creatinine (0.6-1.4) mg/dl Est Cr Clr Drug Dosing ml/min Est GFR ( Amer) ml/min Est GFR (Non-Af Amer) ml/min BUN/Creatinine Ratio (10-20) Glucose (70-99(Fasting)) mg/dl POC Glucose 272 H (70-99) mg/dl Calcium (8.5-10.1) mg/dl Total Bilirubin (0.2-1.0) mg/dl AST (13-39) U/L ALT (7-52) U/L Alkaline Phosphatase (34-104) U/L Total Creatine Kinase (30-223) U/L Troponin I High Sens (0-20) pg/ml Total Protein (6.0-8.3) gm/dl Albumin (3.4-5.0) gm/dl Globulin (2.5-4.0) gm/dl Albumin/Globulin Ratio (0.9-2) Urine Color Urine Appearance (Clear) Urine pH (4.5-7.5) Ur Specific [place] (1.000-1.030) Urine Protein (Negative) Urine Glucose (UA) (Negative) Urine Ketones (Negative) Urine Blood (Negative) Urine Nitrite (Negative) Urine Bilirubin (Negative) Urine Urobilinogen (Negative) Ur Leukocyte Esterase (Negative) Urine WBC (Auto) (0-5) /hpf Urine RBC (Auto) (0-4) /hpf U Hyaline Cast (Auto) (0-5) /lpf U Epithel Cells (Auto) (0-5) /lpf Urine Bacteria (Auto) (Negative) SARS-CoV-2 (PCR) NEGATIVE (Negative) Influenza Type A (PCR) Negative (Neg) Influenza Type B (PCR) Negative (Neg) RSV (RT-PCR) Negative (Neg) Administered Medications Discontinued Medications Sodium Chloride (Nss 1000ml) 2,000 mls @ 999 mls/hr IV .Q2H1M ONE Stop: 09/28/22 17:05 Last Infusion: 09/28/22 17:30 Dose: 0 mls/hr Documented By: Admin: 09/28/22 15:40 Dose: 999 mls/hr Documented By: REGINA Insulin Glargine (Lantus Per Unit Charge) 30 units SQ NOW STA Stop: 09/28/22 17:56 Last Admin: 09/28/22 18:19 Dose: 30 units Documented By: REGINA Co-signed By: MADAN Ondansetron HCl (Ondansetron Inj 2 Mg/Ml 2 Ml Vial) Confirm Administered Dose 4 mg .ROUTE .STK-MED ONE Stop: 09/28/22 13:55 Last Admin: 09/28/22 14:02 Dose: 4 mg Documented By: CARMEN Ondansetron HCl (Ondansetron Inj 2 Mg/Ml 2 Ml Vial) 4 mg IV NOW STA Stop: 09/28/22 16:01 Last Admin: 09/28/22 16:07 Dose: 4 mg Documented By: REGINA Imaging Data Radiologist's Impression: Chest X-Ray 09/28/22 15:32 XR chest 2V PA/lateral CLINICAL HISTORY: Atypical chest pain. COMPARISON STUDY: Chest CT May 21, 2019 and chest radiograph January 31, 2021. FINDINGS: Lung volumes are normal. Lungs are clear. There is no pneumothorax or pleural effusion. Cardiac size is normal. Mediastinal contours are normal. There is no evidence for pulmonary edema. Subtle interstitial prominence is noted. IMPRESSION: 1. No consolidation. 2. Mild nonspecific interstitial prominence. ACT 112: Negative or not required by law. Electronically signed by: Luiz Davey M.D. 09/28/2022 4:07 PM Discharge Plan Visit Data Chief Complaint: Flu Like Symptoms Stated Complaint: POSSIBLE DKA, FLU LIKE SYMPTOMS, VOMITING ED Provider: Rufino Raymundo Discharge Problem: DKA (diabetic ketoacidoses), Vomiting, Type 1 diabetes mellitus, Dehydration, JESSIE (acute kidney injury) Patient Disposition: Being Evaluated by Hospitalist Discharge Instructions Interventions: ED Discharge Assessment Last Done: 09/28/22 19:28 Forms Stand Alone Forms: [employer] Prescriptions Prescriptions: No Action insulin aspart U-100 100 unit/mL solution 0 unit continuous subcutaneous infusion CONTINOUS Rx Instructions: via insulin pump up to 200 units per day Referrals Referrals: Kylah Orellana DO [Outside Practitioners] -
[2022-09-28] MEDS ORDERED: ONDANSETRON INJ 2 MG/ML 2 ML VIAL IV STA (16:00)
--- NOTE | 2022-09-28 16:08 | XRay Report ---
XR chest 2V PA/lateral CLINICAL HISTORY: Atypical chest pain. COMPARISON STUDY: Chest CT May 21, 2019 and chest radiograph January 31, 2021. FINDINGS: Lung volumes are normal. Lungs are clear. There is no pneumothorax or pleural effusion. Car diac size is normal. Mediastinal contours are normal. There is no evidence for pulmonary edema. Subtl e interstitial prominence is noted. IMPRESSION: 1. No consolidation. 2. Mild nonspecific interstitial prominence. ACT 112: Negative or not required by law. Electronically signed by: Luiz Davey M.D. 09/28/2022 4:07 PM
[2022-09-28 16:41] LABS: Troponin I High Sensitivity 20.3 pg/ml (0-20)
[2022-09-28 16:47] LABS: Influenza A virus by PCR Negative (Neg); Influenza B virus by PCR Negative (Neg); RSV by PCR Negative (Neg); SARS CoV2 RNA(COVID-19) Ceph NEGATIVE (Negative)
[2022-09-28] MEDS ORDERED: ACETAMINOPHEN 325 MG TAB PO PRN (17:44)
[2022-09-28] MEDS ORDERED: cefTRIAXone SODIUM 1,000 MG in DEXTROSE 5% AD-VAN 50 ML IV SCH (17:45)
[2022-09-28 17:49] LABS: Base Excess VBG 0.7 mEq/L; HCO3 VBG 25 mmol/L; Oxygen Saturation VBG 93.4 %; PCO2 VBG 40 mmHg (38-50); PO2 VBG 61 mmHg; pH VBG 7.41 (7.36-7.41)
[2022-09-28] MEDS ORDERED: GLUCOSE 40% GEL 15 GM TUBE PO PRN (17:55)
[2022-09-28] MEDS ORDERED: PHARMACY GLYCEMIC MGMT CONSULT PRN (17:55)
[2022-09-28] MEDS ORDERED: GLUCOSE 10 TAB/TUBE PO PRN (17:55)
[2022-09-28] MEDS ORDERED: LANTUS PER UNIT CHARGE SQ STA (17:55)
[2022-09-28] MEDS ORDERED: GLUCAGON FOR INJ 1 MG VIAL SQ PRN (17:55)
[2022-09-28] MEDS ORDERED: DEXTROSE 50% 50 ML SYRINGE IV PRN (17:55)
[2022-09-28] MEDS ORDERED: INSULIN ASPART PER UNIT SC SCH (18:00)
--- NOTE | 2022-09-28 18:14 | History & Physical Report ---
Date of Service September 28, 2022 Assessment & Plan (1) Type 1 diabetes mellitus: (2) Severe hyperglycemia due to diabetes mellitus: (3) Vomiting: (4) Gastroenteritis: Plan: Past medical history of type 1 diabetes mellitus on insulin pump, history of C. difficile Presents with nausea vomiting and periumbilical abdominal pain for 2 days Leukocytosis present. Bicarb of 26. Anion gap is 17. VBG shows pH of 7.4. Plan; -Obtain CT abdomen without contrast given history of periumbilical pain and severe nausea vomiting. Obtain blood culture. Start on empiric ceftriaxone; will DC if blood culture is negative. -Obtain GI PCR panel and C. difficile. -Protonix for possible reflux esophagitis -No DKA as per VBG. Continue IV hydration with normal saline plus potassium at 150 cc/h. Stop insulin pump. Start on Lantus 30 units and 7 units every 6 hours While patient is on clear liquid diet. Blood glucose level every 6 hours. Clear liquid diet for now. Zofran for vomiting. (5) JESSIE (acute kidney injury): Plan: Likely prerenal due to dehydration. Creatinine 1.46; baseline 0.64 Obtain urine electrolytes, urine creatinine, CK. Continue on IV fluids and monitor input output. BMP tomorrow AM. Plan DVT Heparin CODE STATUS full History of Present Illness Chief Complaint: Abdominal pain, nausea, vomiting for 2 days Primary Care Provider: Didi Pandya MD History obtained from review of past medical record and interview with the patient. Past medical history of type 1 diabetes mellitus on insulin pump, history of C. difficile in 2019, history of chronic diarrhea. Last confinement in March 2022 with severe hyperglycemia. Patient presents with nausea, vomiting and periumbilical abdominal pain which started 2 days ago. Patient also reports subjective fever and chills. The vomitus contains food particles; no blood noticed. Also reports decreased urinary output in last 24 hours. He also reports a burning sensation at the back of the throat and in the epigastric region due to vomiting. He denies headache, visual changes, urinary symptoms like urgency, increased frequency, focal weakness, chest pain or shortness of breath. Reports that his diarrhea has been under control lately. He is a scheduled for outpatient GI follow-up. On presentation to the ED, he was normotensive, tachycardic, afebrile and saturating well in room air. WBC was noted to be 20.15 with predominantly neutrophils. Sodium of 130. BUN/creatinine are elevated consistent with acute kidney injury. His blood glucose level was 317 with bicarb of 26 and anion gap of 17. VBG does not show any acidosis. Allergies Allergy/AdvReac Type Severity Reaction Status Date / Time methyl salicylate Allergy Intermediate HIVES, Verified 03/08/22 21:22 "FEELS LIKE FIRE ON MY SKIN" codeine AdvReac Intermediate BECOMES Verified 03/08/22 21:22 VERY AGGRESSIVE Home Medications Medication Instructions Recorded Confirmed Type dicyclomine 10 mg capsule 10 mg PO Q6H PRN IBS 04/14/20 03/08/22 History insulin aspart U-100 100 unit/mL See Rx Instructions .Route 03/11/22 Rx subcutaneous solution .COMPLEX 30 days #10 mL loperamide 2 mg capsule 2 mg PO Q6H PRN loose stool #30 03/11/22 Rx caps Past Med/Surg History Medical History Diabetes Disorder of male genital organs, unspecified DKA (diabetic ketoacidoses) Epigastric pain GERD (gastroesophageal reflux disease) Hx of psoriasis Hypertension Major depressive disorder, recurrent episode Rectal/anal hemorrhage Sebaceous cyst Suicidal ideation Tobacco abuse disorder Surgical History No pertinent past surgical history Family History Father Cardiovascular disease Diabetes Mother Diabetes Other No significant family history Social History Smoking Status: Current every day smoker Tobacco Type: Cigarettes Cigarettes Per Day: 1 PPD; Hx Alcohol Use: No Hx Substance Use: No Preferred Language: [place] Leonean Communication Ability: Effective Radiographer Required: No Beliefs That Will Affect Care: None marital status: Single Current Living Situation: Significant Other current occupational status: employed Feels Safe at Home: Yes Assistive Devices: None Review of Systems Review of Systems: All systems reviewed & are unremarkable except as noted in Subjective Physical Exam Physical Exam: Constitutional: Tired looking; in mild distress. Alert orient x3. Respiratory: normal respiratory effort, lungs clear to auscultation, no wheeze, rales, rhonchi. Normal insp/exp effort, no accessory muscle use Cardiovascular: RRR, no murmur, no edema Vessels: no JVD or carotid bruit Chest: normal inspection of chest Abdomen: normal bowel sounds, soft, nontender, no hepatosplenomegaly Musculoskeletal: no cyanosis or clubbing, extremities motor strength 5/5 Skin: no rashes, warm and dry normal turgor Neurologic: PERRL, EOMI, accommodation nl, no face palsy, no dysarthria CN's II- XI intact bilaterally and moves all extremities Psychiatric: A+Ox3, euthymic affect Lymphatic: no cervical or axillary lymphadenopathy : deferred Results & Data Results & Data ([facility]) Vital Signs (Past 12 Hours) Vital Signs Temp Pulse Pulse Resp BP BP Pulse Ox 09/28/22 17:00 120 H 16 130/73 99 09/28/22 13:21 36.7 C 118 H 18 149/91 H 100 O2 Del Method 09/28/22 17:00 Room Air 09/28/22 13:21 Room Air Laboratory Results Laboratory Results WBC 20.15 K/ul (4.8-10.8) H 09/28/22 14:00 RBC 5.57 M/uL (4.63-6.08) 09/28/22 14:00 Hgb 17.9 g/dl (14.0-18.0) 09/28/22 14:00 Hct 47.1 % (40.1-51.0) 09/28/22 14:00 MCV 84.6 fL (80.0-100.0) 09/28/22 14:00 MCH 32.1 pg (25.0-34.0) 09/28/22 14:00 MCHC 38.0 g/dL (32.0-36.0) H 09/28/22 14:00 RDW Std Deviation 38.0 fL (36.4-46.3) 09/28/22 14:00 RDW Coeff of Bhavik 12.4 % (11.5-14.5) 09/28/22 14:00 Plt Count 300 K/uL (130-400) 09/28/22 14:00 MPV 9.6 fL (9.4-12.4) 09/28/22 14:00 Immature Gran % (Auto) 0.6 % 09/28/22 14:00 Neut % (Auto) 89.8 % 09/28/22 14:00 Lymph % (Auto) 3.6 % 09/28/22 14:00 [place] % (Auto) 5.9 % 09/28/22 14:00 Eos % (Auto) 0.0 % 09/28/22 14:00 Baso % (Auto) 0.1 % 09/28/22 14:00 Neut # (Auto) 18.10 K/uL (1.4-6.5) H 09/28/22 14:00 Lymph # (Auto) 0.73 K/uL (1.2-3.4) L 09/28/22 14:00 [place] # (Auto) 1.18 K/uL (0.24-0.82) H 09/28/22 14:00 Eos # (Auto) 0.00 K/uL (0-0.50) 09/28/22 14:00 Baso # (Auto) 0.02 K/uL (0-0.2) 09/28/22 14:00 Immature Gran # (Auto) 0.12 K/uL (0.00-0.02) H 09/28/22 14:00 VBG pH 7.41 (7.36-7.41) 09/28/22 17:33 VBG pCO2 40 mmHg (38-50) 09/28/22 17:33 VBG pO2 61 mmHg 09/28/22 17:33 VBG HCO3 25 mmol/L 09/28/22 17:33 VBG O2 Saturation 93.4 % 09/28/22 17:33 VBG Base Excess 0.7 mEq/L 09/28/22 17:33 Sodium 130 mmol/L (136-145) L 09/28/22 14:00 Potassium 3.8 mmol/L (3.5-5.1) 09/28/22 14:00 Chloride 87 mmol/L (98-107) L 09/28/22 14:00 Carbon Dioxide 26 mmol/L (21-32) 09/28/22 14:00 Anion Gap 17 (3-11) H 09/28/22 14:00 BUN 33 mg/dl (6-23) H 09/28/22 14:00 Creatinine 1.46 mg/dl (0.6-1.4) H 09/28/22 14:00 Est Cr Clr Drug Dosing 75.2 ml/min 09/28/22 14:00 Est GFR ( Amer) 71.2 ml/min 09/28/22 14:00 Est GFR (Non-Af Amer) 61.4 ml/min 09/28/22 14:00 BUN/Creatinine Ratio 22.6 (10-20) H 09/28/22 14:00 Glucose 317 mg/dl (70-99(Fasting)) H* 09/28/22 14:00 POC Glucose 272 mg/dl (70-99) H 09/28/22 17:17 Calcium 10.0 mg/dl (8.5-10.1) 09/28/22 14:00 Total Bilirubin 1.6 mg/dl (0.2-1.0) H 09/28/22 14:00 AST 21 U/L (13-39) 09/28/22 14:00 ALT 30 U/L (7-52) 09/28/22 14:00 Alkaline Phosphatase 113 U/L (34-104) H 09/28/22 14:00 Troponin I High Sens 20.3 pg/ml (0-20) H 09/28/22 14:00 Total Protein 8.0 gm/dl (6.0-8.3) 09/28/22 14:00 Albumin 5.1 gm/dl (3.4-5.0) H 09/28/22 14:00 Globulin 2.9 gm/dl (2.5-4.0) 09/28/22 14:00 Albumin/Globulin Ratio 1.8 (0.9-2) 09/28/22 14:00 Urine Color Yellow 09/28/22 14:00 Urine Appearance Clear (Clear) 09/28/22 14:00 Urine pH 5.5 (4.5-7.5) 09/28/22 14:00 Ur Specific [place] 1.028 (1.000-1.030) 09/28/22 14:00 Urine Protein 1+ (Negative) H 09/28/22 14:00 Urine Glucose (UA) 3+ (Negative) H 09/28/22 14:00 Urine Ketones 3+ (Negative) H 09/28/22 14:00 Urine Blood Negative (Negative) 09/28/22 14:00 Urine Nitrite Negative (Negative) 09/28/22 14:00 Urine Bilirubin Negative (Negative) 09/28/22 14:00 Urine Urobilinogen Negative (Negative) 09/28/22 14:00 Ur Leukocyte Esterase Negative (Negative) 09/28/22 14:00 Urine WBC (Auto) 1-5 /hpf (0-5) 09/28/22 14:00 Urine RBC (Auto) 5-10 /hpf (0-4) H 09/28/22 14:00 U Hyaline Cast (Auto) 10-30 /lpf (0-5) H 09/28/22 14:00 U Epithel Cells (Auto) 10-20 /lpf (0-5) H 09/28/22 14:00 Urine Bacteria (Auto) Negative (Negative) 09/28/22 14:00 SARS-CoV-2 (PCR) NEGATIVE (Negative) 09/28/22 Unknown Influenza Type A (PCR) Negative (Neg) 09/28/22 Unknown Influenza Type B (PCR) Negative (Neg) 09/28/22 Unknown RSV (RT-PCR) Negative (Neg) 09/28/22 Unknown Impressions Chest X-Ray 09/28/22 15:32 XR chest 2V PA/lateral CLINICAL HISTORY: Atypical chest pain. COMPARISON STUDY: Chest CT May 21, 2019 and chest radiograph January 31, 2021. FINDINGS: Lung volumes are normal. Lungs are clear. There is no pneumothorax or pleural effusion. Cardiac size is normal. Mediastinal contours are normal. There is no evidence for pulmonary edema. Subtle interstitial prominence is noted. IMPRESSION: 1. No consolidation. 2. Mild nonspecific interstitial prominence. ACT 112: Negative or not required by law. Electronically signed by: Luiz Davey M.D. 09/28/2022 4:07 PM Code Status & VTE Plan VTE Prophylaxis Plan VTE Prophylaxis will be ordered: Yes (1) Type 1 diabetes mellitus Diabetes mellitus complication status: with hyperglycemia Qualified Code(s): E10.65 - Type 1 diabetes mellitus with hyperglycemia (2) Vomiting Nausea presence: with nausea Vomiting Intractability: non-intractable Vomiting type: unspecified Qualified Code(s): R11.2 - Nausea with vomiting, unspecified
--- NOTE | 2022-09-28 18:31 | Electrocardiogram Report ---
Test Reason : Blood Pressure : / mmHG Vent. Rate : 099 BPM Atrial Rate : 099 BPM P-R Int : 132 ms QRS Dur : 092 ms QT Int : 340 ms P-R-T Axes : 068 077 076 degrees QTc Int : 436 ms Normal sinus rhythm Normal ECG When compared with ECG of 31-JAN-2021 16:36, T wave amplitude has decreased in Lateral leads Confirmed by Dwight Desai ([id number]) on 09/28/2022 6:30:43 PM Referred By: REFERRED SELF Confirmed By:Sukhdev Desai
--- NOTE | 2022-09-28 20:04 | CT Scan Report ---
CT abdomen wo con CLINICAL HISTORY: Periumbilical abdominal pain/ Nausea and vomiting TECHNIQUE: Helical axial images of the abdomen and pelvis were obtained. Automated dose lowering tech niques and/or adjustment according to patient size were utilized for this exam. This exam was perfor med without intravenous contrast. CT DOSE: 216.50 mGy.cm COMPARISON: Comparison is made to CT abdomen pelvis 03/09/2022 FINDINGS: Lower chest: No acute abnormality. Liver: Unremarkable. No focal lesions are seen. Gallbladder and biliary tree: No calcified gallstones. Normal caliber wall. No intra- or extrahepatic biliary ductal dilation. Pancreas: Unremarkable, no focal lesions. Spleen: Unremarkable. Adrenals: Unremarkable. Kidneys and ureters: Unremarkable. Bowel: Diverticulosis is seen without evidence of diverticulitis. The appendix is visualized and is n ormal. Lymph nodes Retroperitoneal: Unremarkable. Mesenteric: Unremarkable. Peritoneum: Normal. Vessels: Unremarkable. Abdominal wall: Unremarkable. Bones: Degenerative changes in the visualized spine. IMPRESSION: No acute abnormalities. In particular, the appendix is normal and there is no evidence of bowel obstr uction. ACT 112: Negative or not required by law. Electronically signed by: Mahin Corrales M.D. 09/28/2022 8:02 PM
[2022-09-28] MEDS: INSULIN ASPART PER UNIT SC SCH (20:48)
[2022-09-28] MEDS: PANTOprazole 40 MG in SYRINGE 0 ML IV SCH (20:58)
[2022-09-28] MEDS: NSS + 20MEQ KCL 20 MEQ/1,000 ML BAG IV SCH (20:59)
[2022-09-28] MEDS: ONDANSETRON INJ 2 MG/ML 2 ML VIAL IV PRN (20:59)
[2022-09-28] MEDS: cefTRIAXone SODIUM 2,000 MG in DEXTROSE 5% 50 ML IV SCH (21:00)
[2022-09-29] MEDS ORDERED: INSULIN ASPART PER UNIT SC SCH
[2022-09-29] MEDS ORDERED: CHLORASEPTIC 1.4% SOLN 180 ML BTL MT PRN (00:12)
[2022-09-29] MEDS: INSULIN ASPART PER UNIT SC SCH ×6 (00:14→20:55)
[2022-09-29 01:40] LABS: Creatinine Urine Random 94.9 mg/dl
[2022-09-29] MEDS: NSS + 20MEQ KCL 20 MEQ/1,000 ML BAG IV SCH ×3 (04:03→16:57)
[2022-09-29] MEDS: ONDANSETRON INJ 2 MG/ML 2 ML VIAL IV PRN ×3 (04:13→20:50)
[2022-09-29 07:30] LABS: Albumin Globulin Ratio 1.7 (0.9-2); Albumin Level 3.8 gm/dl (3.4-5.0); BUN Creatinine Ratio 17.6 (10-20); Bilirubin,Total 1.1 mg/dl (0.2-1.0); Calcium 8.6 mg/dl (8.5-10.1); Creatinine Clr Calc Pharmacy 120.7 ml/min; Est GFR (African American) 126.1 ml/min; Est GFR (Non-African American) 108.8 ml/min; Globulin 2.2 gm/dl (2.5-4.0); Potassium 3.8 mmol/L (3.5-5.1)
[2022-09-29 07:59] LABS: Basophils # (auto) 0.02 K/uL (0-0.2); Basophils % (auto) 0.1 %; Eosinophils # (auto) 0.02 K/uL (0-0.50); Eosinophils % (auto) 0.1 %; Hematocrit (blood only) 39.3 % (40.1-51.0); Hemoglobin 14.9 g/dl (14.0-18.0); Immature Granulocytes # (auto) 0.09 K/uL (0.00-0.02); Immature Granulocytes % (auto) 0.5 %; Lymphocytes % (auto) 4.8 %; Mean Corpuscular Hemoglobin 32.1 pg (25.0-34.0); Mean Corpuscular Hgb Conc 37.9 g/dL (32.0-36.0); Mean Corpuscular Volume 84.7 fL (80.0-100.0); Mean Platelet Volume 9.3 fL (9.4-12.4); Monocytes # (auto) 1.53 K/uL (0.24-0.82); Monocytes % (auto) 9.2 %; Neutrophils # (auto) 14.21 K/uL (1.4-6.5); Neutrophils % (auto) 85.3 %; Platelet Count 200 K/uL (130-400); RDW Coefficient of Variation 12.5 % (11.5-14.5); RDW Standard Deviation 38.3 fL (36.4-46.3); Red Blood Count 4.64 M/uL (4.63-6.08); White Blood Count 16.67 K/ul (4.8-10.8)
[2022-09-29] MEDS: PANTOprazole 40 MG in SYRINGE 0 ML IV SCH (09:23)
[2022-09-29] MEDS: HEPARIN SOD 5,000 UNIT/0.5 ML VIAL SQ SCH ×2 (12:13→20:41)
[2022-09-29 12:20] LABS: Estimated Average Glucose 223 mg/dl; Hemoglobin A1C 9.4 % (4.5-5.6)
[2022-09-29] MEDS ORDERED: NICOTINE POLACRILEX 2 MG GUM MT PRN (12:29)
--- NOTE | 2022-09-29 12:32 | Pharmacy Report ---
Pharmacy Glycemic Short Note 2 - Date of Service September 29, 2022 - Glycemic Short BSG Results (Last 24 hours): 09/28/22 09/28/22 09/28/22 14:00 17:17 20:01 Glucose 317 H* POC Glucose 272 H 255 H 09/29/22 09/29/22 09/29/22 00:10 04:00 06:42 Glucose 184 H POC Glucose 252 H 249 H 09/29/22 07:30 Glucose POC Glucose 161 H 09/29/22 11:06 POC Glucose 250 H OUTPATIENT ANTIDIABETIC REGIMEN: * Pump settings in March 2022: Novolog via Medtronic [id number] insulin pump Basal: 8997-2161: 1.1 units/hr 6052-8226: 1.2 units/hr Total: 27.2 units ICR: 11 SF:50 BG Target: 90-140 TDD: 36 units Basal: 27 units (75%) Bolus: 9 units (25%) ASSESSMENT: * 37 yo male, type 1 DM managed by insulin pump, admitted w/ N/V and periumbilical abdominal pain x 2 days, started on IV fluids, Protonix, and ceftriaxone. Hx of Cdiff, on clear liquids at this time. * Patient unable to be interviewed at this time regarding current pump settings, was just incontinent of bowel and vomiting. * Insulin pump stopped last night, and patient given 30 units of Lantus * Blood sugar better this morning, but patient did refuse NovoLog with breakfast, resulting in BSG 250mg/dl prior to lunch. * Will attempt to get updated pump settings when patient feeling better for discussion. PLAN FOR INPATIENT GLYCEMIC CONTROL: * Hold outpatient insulin pump * Basal insulin * Lantus 30 units SQ daily at 1630 * Bolus insulin * NovoLog per scale ACHS or Q6hrs while NPO * Goal Range: Low 110 mg/dL - High 140 mg/dL * Correction Factor: 30 mg/dL/unit * Nutritional / Prandial insulin per carb ratio of 1 unit per 10 grams CHO consumed
[2022-09-29] MEDS ORDERED: ALUMINUM/MAGNESIUM SUSP 18 ML, LIDOCAINE VISCOUS 2% SOLN 6 ML, BARCODE IDENTIFIER 1 EACH PO ONE (12:45)
--- NOTE | 2022-09-29 13:11 | Hospitalist Progress Note ---
Date of Service September 29, 2022 Assessment & Plan (1) Type 1 diabetes mellitus: (2) Severe hyperglycemia due to diabetes mellitus: (3) Vomiting: (4) Gastroenteritis: Plan: Past medical history of type 1 diabetes mellitus on insulin pump, history of C. difficile Presents with nausea vomiting and periumbilical abdominal pain for 2 days Leukocytosis present. Bicarb of 26. Anion gap is 17. VBG shows pH of 7.4. CT abdomen without contrast done on admission due to severe periumbilical pain. No acute abnormality found. Leukocytosis slightly improved. Blood culture pending Plan; -Continue on on empiric ceftriaxone; will DC if blood culture is negative in 48 hours. -Follow-up on GI PCR panel and C. difficile. -Protonix for possible reflux esophagitis. GI consulted for severe nausea, vomiting. 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 -Decreased rate of IV hydration with normal saline plus potassium to 100 cc/h from 150 cc -Advance diet as tolerated His insulin pump is on hold. He is currently on Lantus 30 units at bedtime; NovoLog AC HS; pharmacy on board. (5) JESSIE (acute kidney injury): Plan: Likely prerenal due to dehydration. Creatinine 1.46 on admission; baseline 0.64 Improvement of creatinine by her IV hydration. Urine electrolytes suggest prerenal cause. Continue IV fluids for now. Daily BMP. Plan DVT Heparin CODE STATUS full Admission and Anticipated Discharge Date Admission Date: September 28, 2022 Subjective Patient seen and examined at the bedside. He reports retrosternal burning sensation and epigastric pain due to repeated vomiting. Review of Systems Review of Systems: All systems reviewed & are unremarkable except as noted in Subjective Physical Exam Physical Exam: Constitutional: Awake, alert orient x3; not in any distress. Respiratory: normal respiratory effort, lungs clear to auscultation, no wheeze, rales, rhonchi. Normal insp/exp effort, no accessory muscle use Cardiovascular: RRR, no murmur, no edema Vessels: no JVD or carotid bruit Chest: normal inspection of chest Abdomen: normal bowel sounds, soft, nontender, no hepatosplenomegaly Musculoskeletal: no cyanosis or clubbing, extremities motor strength 5/5 Skin: no rashes, warm and dry normal turgor Neurologic: PERRL, EOMI, accommodation nl, no face palsy, no dysarthria CN's II- XI intact bilaterally and moves all extremities Psychiatric: A+Ox3, euthymic affect Lymphatic: no cervical or axillary lymphadenopathy : deferred Results & Data Results & Data ([facility]) Vital Signs (Past 12 Hours) Vital Signs Temp Pulse Pulse Resp BP Pulse Ox O2 Del Method 09/29/22 11:21 36.5 C 99 H 18 121/67 97 Room Air 09/29/22 05:55 91 H 09/29/22 08:09 36.7 C 97 H 18 144/79 H 97 Room Air 09/29/22 03:00 36.6 C 97 H 20 137/77 97 Room Air Laboratory Results Laboratory Results WBC 16.67 K/ul (4.8-10.8) H 09/29/22 06:42 RBC 4.64 M/uL (4.63-6.08) 09/29/22 06:42 Hgb 14.9 g/dl (14.0-18.0) D 09/29/22 06:42 Hct 39.3 % (40.1-51.0) L 09/29/22 06:42 MCV 84.7 fL (80.0-100.0) 09/29/22 06:42 MCH 32.1 pg (25.0-34.0) 09/29/22 06:42 MCHC 37.9 g/dL (32.0-36.0) H 09/29/22 06:42 RDW Std Deviation 38.3 fL (36.4-46.3) 09/29/22 06:42 RDW Coeff of Bhavik 12.5 % (11.5-14.5) 09/29/22 06:42 Plt Count 200 K/uL (130-400) 09/29/22 06:42 MPV 9.3 fL (9.4-12.4) L 09/29/22 06:42 Immature Gran % (Auto) 0.5 % 09/29/22 06:42 Neut % (Auto) 85.3 % 09/29/22 06:42 Lymph % (Auto) 4.8 % 09/29/22 06:42 [place] % (Auto) 9.2 % 09/29/22 06:42 Eos % (Auto) 0.1 % 09/29/22 06:42 Baso % (Auto) 0.1 % 09/29/22 06:42 Neut # (Auto) 14.21 K/uL (1.4-6.5) H 09/29/22 06:42 Lymph # (Auto) 0.80 K/uL (1.2-3.4) L 09/29/22 06:42 [place] # (Auto) 1.53 K/uL (0.24-0.82) H 09/29/22 06:42 Eos # (Auto) 0.02 K/uL (0-0.50) 09/29/22 06:42 Baso # (Auto) 0.02 K/uL (0-0.2) 09/29/22 06:42 Immature Gran # (Auto) 0.09 K/uL (0.00-0.02) H 09/29/22 06:42 VBG pH 7.41 (7.36-7.41) 09/28/22 17:33 VBG pCO2 40 mmHg (38-50) 09/28/22 17:33 VBG pO2 61 mmHg 09/28/22 17:33 VBG HCO3 25 mmol/L 09/28/22 17:33 VBG O2 Saturation 93.4 % 09/28/22 17:33 VBG Base Excess 0.7 mEq/L 09/28/22 17:33 Sodium 136 mmol/L (136-145) 09/29/22 06:42 Potassium 3.8 mmol/L (3.5-5.1) 09/29/22 06:42 Chloride 102 mmol/L (98-107) 09/29/22 06:42 Carbon Dioxide 27 mmol/L (21-32) 09/29/22 06:42 Anion Gap 7 (3-11) 09/29/22 06:42 BUN 16 mg/dl (6-23) 09/29/22 06:42 Creatinine 0.91 mg/dl (0.6-1.4) D 09/29/22 06:42 Est Cr Clr Drug Dosing 120.7 ml/min 09/29/22 06:42 Est GFR ( Amer) 126.1 ml/min 09/29/22 06:42 Est GFR (Non-Af Amer) 108.8 ml/min 09/29/22 06:42 BUN/Creatinine Ratio 17.6 (10-20) 09/29/22 06:42 Glucose 184 mg/dl (70-99(Fasting)) H 09/29/22 06:42 POC Glucose 250 mg/dl (70-99) H 09/29/22 11:06 Estimat Average Glucose 223 mg/dl 09/29/22 06:42 Hemoglobin A1c 9.4 % (4.5-5.6) H 09/29/22 06:42 Calcium 8.6 mg/dl (8.5-10.1) 09/29/22 06:42 Total Bilirubin 1.1 mg/dl (0.2-1.0) H 09/29/22 06:42 AST 17 U/L (13-39) 09/29/22 06:42 ALT 21 U/L (7-52) 09/29/22 06:42 Alkaline Phosphatase 84 U/L (34-104) 09/29/22 06:42 Total Creatine Kinase 138 U/L (30-223) 09/28/22 14:00 Troponin I High Sens 17.4 pg/ml (0-20) 09/28/22 20:24 Total Protein 6.0 gm/dl (6.0-8.3) D 09/29/22 06:42 Albumin 3.8 gm/dl (3.4-5.0) 09/29/22 06:42 Globulin 2.2 gm/dl (2.5-4.0) L 09/29/22 06:42 Albumin/Globulin Ratio 1.7 (0.9-2) 09/29/22 06:42 Urine Color Yellow 09/28/22 14:00 Urine Appearance Clear (Clear) 09/28/22 14:00 Urine pH 5.5 (4.5-7.5) 09/28/22 14:00 Ur Specific [place] 1.028 (1.000-1.030) 09/28/22 14:00 Urine Protein 1+ (Negative) H 09/28/22 14:00 Urine Glucose (UA) 3+ (Negative) H 09/28/22 14:00 Urine Ketones 3+ (Negative) H 09/28/22 14:00 Urine Blood Negative (Negative) 09/28/22 14:00 Urine Nitrite Negative (Negative) 09/28/22 14:00 Urine Bilirubin Negative (Negative) 09/28/22 14:00 Urine Urobilinogen Negative (Negative) 09/28/22 14:00 Ur Leukocyte Esterase Negative (Negative) 09/28/22 14:00 Urine WBC (Auto) 1-5 /hpf (0-5) 09/28/22 14:00 Urine RBC (Auto) 5-10 /hpf (0-4) H 09/28/22 14:00 U Hyaline Cast (Auto) 10-30 /lpf (0-5) H 09/28/22 14:00 U Epithel Cells (Auto) 10-20 /lpf (0-5) H 09/28/22 14:00 Urine Bacteria (Auto) Negative (Negative) 09/28/22 14:00 Urine Osmolality 715 mOsm/kg (500-800) 09/29/22 00:49 Ur Random Creatinine 94.9 mg/dl 09/29/22 00:49 Urine Sodium 13 mmol/L 09/29/22 00:49 Urine Potassium 19.0 mmol/L 09/29/22 00:49 Urine Chloride 16 mmol/L 09/29/22 00:49 SARS-CoV-2 (PCR) NEGATIVE (Negative) 09/28/22 Unknown Influenza Type A (PCR) Negative (Neg) 09/28/22 Unknown Influenza Type B (PCR) Negative (Neg) 09/28/22 Unknown RSV (RT-PCR) Negative (Neg) 09/28/22 Unknown Impressions Chest X-Ray 09/28/22 15:32 XR chest 2V PA/lateral CLINICAL HISTORY: Atypical chest pain. COMPARISON STUDY: Chest CT May 21, 2019 and chest radiograph January 31, 2021. FINDINGS: Lung volumes are normal. Lungs are clear. There is no pneumothorax or pleural effusion. Cardiac size is normal. Mediastinal contours are normal. There is no evidence for pulmonary edema. Subtle interstitial prominence is noted. IMPRESSION: 1. No consolidation. 2. Mild nonspecific interstitial prominence. ACT 112: Negative or not required by law. Electronically signed by: Luiz Davey M.D. 09/28/2022 4:[address] 09/28/22 17:44 CT abdomen wo con CLINICAL HISTORY: Periumbilical abdominal pain/ Nausea and vomiting TECHNIQUE: Helical axial images of the abdomen and pelvis were obtained. Automated dose lowering techniques and/or adjustment according to patient size were utilized for this exam. This exam was performed without intravenous contrast. CT DOSE: 216.50 mGy.cm COMPARISON: Comparison is made to CT abdomen pelvis 03/09/2022 FINDINGS: Lower chest: No acute abnormality. Liver: Unremarkable. No focal lesions are seen. Gallbladder and biliary tree: No calcified gallstones. Normal caliber wall. No intra- or extrahepatic biliary ductal dilation. Pancreas: Unremarkable, no focal lesions. Spleen: Unremarkable. Adrenals: Unremarkable. Kidneys and ureters: Unremarkable. Bowel: Diverticulosis is seen without evidence of diverticulitis. The appendix is visualized and is normal. Lymph nodes Retroperitoneal: Unremarkable. Mesenteric: Unremarkable. Peritoneum: Normal. Vessels: Unremarkable. Abdominal wall: Unremarkable. Bones: Degenerative changes in the visualized spine. IMPRESSION: No acute abnormalities. In particular, the appendix is normal and there is no evidence of bowel obstruction. ACT 112: Negative or not required by law. Electronically signed by: Mahin Corrales M.D. 09/28/2022 8:02 PM
--- NOTE | 2022-09-29 13:13 | Gastrointestinal Consultation ---
Date of Consultation September 29, 2022 Assessment & Plan (1) Diarrhea: (2) Vomiting: (3) Abdominal pain: Plan Patient is a 37 years old male with diabetes mellitus type 1, GERD, hypertension, MDD, who presented yesterday with periumbilical abdominal pain, nausea and vomiting symptoms. CT abdomen pelvis without contrast quite unremarkable. Especially no obstructive processes. He was found to have elevated blood sugars over 300s with anion gap of 17 & JESSIE. On my exam today he denies any more pain, nausea or vomiting but is complaining of chronic diarrhea which has been going on for over 3 years now associated with nocturnal awakening and sometimes fecal incontinence but no gross GI bleeding. He had been attempted to get EGD and colonoscopy scheduled in outpatient setting however had to cancel several times due to elevated blood sugar levels. - Repeat stool studies to r/o infections - Check fecal elastase - Previously tried Imodium and generic equivalents wo much relief. Will try bile acid binder while he's here if not infectious noted - Will plan for OP egd/colonoscopy for chronic diarrhea - Recommend marijuana and tobacco cessation; avoid NSAIDs, ETOH Supervising Physician Co-Signing Physician Notes 37 y/o M with hx of poorly controlled diabetes and hx of C. diff in 2020 who presented with abdominal pain, N/V, and chronic diarrhea. Ct abd/pelvis unremarkable. Patient found to be in DKA currently on an insulin gtt as well as JESSIE with Cr of 1.4. Reports 3 year history of watery diarrhea, fecal incontinence, heartburn, nausea, and vomiting. No hematemesis, melena, or hematochezia. Sugars have been poorly controlled and last a1c was 9.4%. He has followed up with GI in the past. On exam he is tearful but abdomen is soft, non- tender, non-distended. Recommend stool studies, fecal elastase, gastrin levels, VIP levels. Celiac studies negative. Will plan for outpatient EGD and colonoscopy for biopsies which we were able to arrange for next Tuesday at [facility]. Ok to use imodium or lomotil PRN for diarrhea. Would recommend charting all bowel movements to assess how many bowel movements patient is truly having. Discussed with patient about better control of his diabetes. He states he does currently not have an forensic engineer as they left the practice so I recommend him establishing with one. Wendy Skinner, DO Gastroenterology and Hepatology History of Present Illness Reason for Consultation: Abdominal pain, diarrhea Requesting Physician: Dr. Randy Villatoro Attending Physician: Dr. Wendy Skinner History of Present Illness Patient is a 37 years old male with past medical history of diabetes mellitus type 1, history of C. difficile in 2019 who presented yesterday with complaints of periumbilical abdominal pain x2 days, nausea and vomiting symptoms. He also reports having fevers and chills but has been afebrile since admission. Upon evaluation he was noted to have elevated WBC, low sodium, JESSIE, BSG of over 300s with bicarb 26 anion gap of 17. CT abdomen and pelvis without contrast showed no acute findings, no obstructions. On my evaluation, he denies any more nausea or vomiting also no abdominal pain however he reports having issues with diarrhea and fecal incontinence and sometimes nocturnal diarrhea for 3 years. Denies any rectal bleeding or dark tarry stools he had been attempted to get set up for EGD and colonoscopy as an outpatient however had to cancel because his blood sugars have been too high. States that he has tried Imodium and other generic equivalent antidiarrheals without much relief in the past. Last 2 studies over a year ago negative for infections. Celiac antibody testings were previously normal as well. Patient reports that few family members have history of Crohn's and colitis. Denies any family history of colorectal cancer. He has been trying to cut down his tobacco usage, is vaping. Also admits to marijuana uses but denies any alcohol or any other illicit drugs. Allergies Allergy/AdvReac Type Severity Reaction Status Date / Time methyl salicylate Allergy Intermediate HIVES, Verified 09/28/22 18:53 "FEELS LIKE FIRE ON MY SKIN" codeine AdvReac Intermediate BECOMES Verified 09/28/22 18:53 VERY AGGRESSIVE Home Medications Medication Instructions Recorded Confirmed Type insulin aspart U-100 100 unit/mL 0 unit continuous subcutaneous 09/28/22 09/28/22 History subcutaneous solution infusion CONTINOUS Patient History Medical History Diabetes Disorder of male genital organs, unspecified DKA (diabetic ketoacidoses) Epigastric pain GERD (gastroesophageal reflux disease) Hx of psoriasis Hypertension Major depressive disorder, recurrent episode Rectal/anal hemorrhage Sebaceous cyst Suicidal ideation Tobacco abuse disorder Surgical History No pertinent past surgical history Family History Father Cardiovascular disease Diabetes Mother Diabetes Other No significant family history Social History Smoking Status: Current every day smoker Tobacco Type: Cigarettes Cigarettes Per Day: 1 pack a day; Hx Alcohol Use: No Hx Substance Use: Yes Non-Prescribed Medications: Marijuana Preferred Language: Georgian Communication Ability: Effective 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: No Beliefs That Will Affect Care: None marital status: Single Current Living Situation: Significant Other Current Living Situation Comment: lives with roomates current occupational status: employed Other Information That Helps Us Care for You: No Feels Safe at Home: Yes Safety Concerns: Feels Safe At This Time Assistive Devices: Glasses Review of Systems Review of Systems: All systems reviewed & are unremarkable except as noted in HPI & below Physical Exam Constitutional: WD/WN, vitals as above well groomed, cooperative and comfortable Eyes: PERRL, conjunctivae normal, anicteric sclerae ENMT: external ear and nose normal, oropharynx normal Respiratory: normal respiratory effort, lungs clear to auscultation Cardiovascular: RRR, no murmur, no edema Gastrointestinal (Abdomen): normal bowel sounds, soft, nontender, no hepatosplenomegaly Skin: no rashes, warm and dry no jaundice Psychiatric: A+Ox3, euthymic affect Lymphatic: no lymphedema Results & Data ([facility]) Vital Signs (Past 12 Hours) Vital Signs Temp Pulse Pulse Resp BP Pulse Ox O2 Del Method 09/29/22 11:21 36.5 C 99 H 18 121/67 97 Room Air 09/29/22 05:55 91 H 09/29/22 08:09 36.7 C 97 H 18 144/79 H 97 Room Air 09/29/22 03:00 36.6 C 97 H 20 137/77 97 Room Air
[2022-09-29] MEDS: NICOTINE 21 MG/24 HR TDSY TD SCH (13:29)
[2022-09-29] MEDS ORDERED: LANTUS PER UNIT CHARGE SQ SCH (16:30)
[2022-09-29] MEDS: cefTRIAXone SODIUM 2,000 MG in DEXTROSE 5% 50 ML IV SCH (20:41)
[2022-09-29] MEDS ORDERED: ACETAMINOPHEN 1,000 MG/100 ML VIAL IV PRN (22:50)
[2022-09-30] MEDS: NSS + 20MEQ KCL 20 MEQ/1,000 ML BAG IV SCH ×3 (01:11→18:02)
[2022-09-30] MEDS: ONDANSETRON INJ 2 MG/ML 2 ML VIAL IV PRN (03:04)
[2022-09-30 08:20] LABS: Albumin Globulin Ratio 1.7 (0.9-2); Albumin Level 3.5 gm/dl (3.4-5.0); BUN Creatinine Ratio 10.7 (10-20); Bilirubin,Total 1.1 mg/dl (0.2-1.0); Calcium 8.4 mg/dl (8.5-10.1); Creatinine Clr Calc Pharmacy 146.4 ml/min; Est GFR (African American) 137.7 ml/min; Est GFR (Non-African American) 118.8 ml/min; Globulin 2.1 gm/dl (2.5-4.0); Potassium 3.5 mmol/L (3.5-5.1); Total Protein 5.6 gm/dl (6.0-8.3)
[2022-09-30] MEDS: HEPARIN SOD 5,000 UNIT/0.5 ML VIAL SQ SCH ×2 (08:31→20:21)
[2022-09-30] MEDS: NICOTINE 21 MG/24 HR TDSY TD SCH (08:32)
[2022-09-30] MEDS: PANTOprazole 40 MG in SYRINGE 0 ML IV SCH (08:33)
[2022-09-30] MEDS: INSULIN ASPART PER UNIT SC SCH ×4 (08:43→20:14)
--- NOTE | 2022-09-30 08:59 | Communication Note ---
Date of Service: September 30, 2022 We have scheduled pt for EGD and Colonoscopy on 10/05/2022 at 9AM at [facility]. Pt informed and instructed that he will receive phone call for pre op assessment/instructions
[2022-09-30 09:28] LABS: Basophils # (auto) 0.03 K/uL (0-0.2); Basophils % (auto) 0.4 %; Eosinophils # (auto) 0.06 K/uL (0-0.50); Eosinophils % (auto) 0.8 %; Hematocrit (blood only) 37.6 % (42.0-52.0); Hemoglobin 13.8 g/dl (14.0-18.0); Immature Granulocytes # (auto) 0.04 K/uL (0.01-0.20); Immature Granulocytes % (auto) 0.6 %; Lymphocytes # (auto) 1.21 K/uL (1.2-3.4); Lymphocytes % (auto) 17.1 %; Mean Corpuscular Hemoglobin 32.2 pg (25.0-34.0); Mean Corpuscular Hgb Conc 36.7 g/dL (32.0-36.0); Mean Corpuscular Volume 87.6 fL (80.0-100.0); Mean Platelet Volume 9.5 fL (9.4-12.4); Monocytes # (auto) 0.73 K/uL (0.11-0.59); Monocytes % (auto) 10.3 %; Neutrophils % (auto) 70.8 %; Platelet Count 167 K/uL (130-400); RDW Coefficient of Variation 12.2 % (11.5-14.5); Red Blood Count 4.29 M/uL (4.70-6.10); White Blood Count 7.07 K/ul (4.8-10.8)
[2022-09-30] MEDS ORDERED: FIRST - Mouthwash BLM 5 ML UDP PO ONE (09:39)
[2022-09-30] MEDS: SUCRALFATE 1 GM/10 ML UDC PO SCH ×3 (10:32→20:23)
--- NOTE | 2022-09-30 12:36 | Hospitalist Progress Note ---
Date of Service September 30, 2022 Assessment & Plan (1) Type 1 diabetes mellitus: (2) Severe hyperglycemia due to diabetes mellitus: (3) Vomiting: (4) Gastroenteritis: Plan: per Dr. Pantoja's notes with addendum: Past medical history of type 1 diabetes mellitus on insulin pump, history of C. difficile Presents with nausea vomiting and periumbilical abdominal pain for 2 days Leukocytosis present. Bicarb of 26. Anion gap is 17. VBG shows pH of 7.4. CT abdomen without contrast done on admission due to severe periumbilical pain. No acute abnormality found. Leukocytosis slightly improved. Blood culture pending Plan; -Continue on on empiric ceftriaxone; will DC if blood culture is negative in 48 hours. -Follow-up on GI PCR panel and C. difficile. -Protonix for possible reflux esophagitis. GI consulted for severe nausea, vomiting. 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 -Decreased rate of IV hydration with normal saline plus potassium to 100 cc/h from 150 cc -Advance diet as tolerated His insulin pump is on hold. He is currently on Lantus 30 units at bedtime; NovoLog AC HS; pharmacy on board. 09/30 stool panel pending diarrhea resolved on empiric Ceftriaxone IV main symptom is severe reflux, intermittent nausea, difficulty keeping food down will order Magic Mouthwash PRN, Sucralfate QID clear liquid diet discussed with GI, no slot for EGD/Colonoscopy as inpatient outpatient EGD/Colonoscopy scheduled for Tuesday (5) JESSIE (acute kidney injury): Plan: Likely prerenal due to dehydration. Creatinine 1.46 on admission; baseline 0.64 Improvement of creatinine by her IV hydration. Urine electrolytes suggest prerenal cause. Continue IV fluids for now. Daily BMP. 09/30 resolved continue IV fluids until oral intake improves Plan DVT Heparin CODE STATUS full plan of care discussed with patient in detail and at length all questions answered he is understanding, agreeable, comfortable with the plan of care Admission and Anticipated Discharge Date Admission Date: September 28, 2022 Subjective ff up for gastroenteritis, etc seen resting in bed,not in distress reports severe reflux, intermittent nausea no abdominal pain, diarrhea, fever/chiills no other symptoms Review of Systems Review of Systems: all noted and negative except for above Physical Exam Physical Exam: General- oriented x 3, not in distress, speaks in sentences with no effort or accessory muscle use Eyes- anicteric Neck- no JVD Lungs- clear BS bilaterally, no rales/wheezes Heart- normal rate, regular rhythm; no murmurs Abdomen- normal bowel sounds, nondistended, soft, no tenderness Extremities- no pretibial edema, no calf tenderness Neuro- alert, oriented x 3; no gross focal neurologic deficits Skin- warm & dry Results & Data Results & Data ([facility]) Vital Signs (Past 12 Hours) Vital Signs Temp Pulse Pulse Resp BP Pulse Ox O2 Del Method 09/30/22 05:55 79 09/30/22 10:45 36.8 C 83 17 148/90 H 97 Room Air 09/30/22 08:04 36.2 C L 77 17 143/86 H 99 Room Air 09/30/22 03:14 36.9 C 78 14 131/85 97 Room Air all noted and reviewed including below
--- NOTE | 2022-09-30 14:24 | Pharmacy Report ---
Pharmacy Glycemic Short Note 2 - Date of Service September 30, 2022 - Glycemic Short BSG Results (Last 24 hours): 09/29/22 09/29/22 09/29/22 16:37 19:35 23:58 Glucose POC Glucose 255 H 254 H 148 H 09/30/22 09/30/22 09/30/22 05:28 07:27 08:07 Glucose 137 H POC Glucose 115 H 165 H 09/30/22 11:18 Glucose POC Glucose 166 H OUTPATIENT ANTIDIABETIC REGIMEN: * Pump settings in March 2022: Novolog via Medtronic [id number] insulin pump Basal: 6851-1046: 1.1 units/hr 3661-6873: 1.2 units/hr Total: 27.2 units ICR: 11 SF:50 BG Target: 90-140 TDD: 36 units Basal: 27 units (75%) Bolus: 9 units (25%) ASSESSMENT: 09/30 * Patient received total of 51 units of insulin yesterday, of which 30 units were basal insulin * Fasting BSG improving much more 115 mg/dL - PO intake remains low today, will scale back slightly on basal ~10% (this will be same basal as insulin pump settings at home) * No change CF/CR for now 09/29 * 37 yo male, type 1 DM managed by insulin pump, admitted w/ N/V and periumbilical abdominal pain x 2 days, started on IV fluids, Protonix, and ceftriaxone. Hx of Cdiff, on clear liquids at this time. * Patient unable to be interviewed at this time regarding current pump settings, was just incontinent of bowel and vomiting. * Insulin pump stopped last night, and patient given 30 units of Lantus * Blood sugar better this morning, but patient did refuse NovoLog with breakfast, resulting in BSG 250mg/dl prior to lunch. * Will attempt to get updated pump settings when patient feeling better for discussion. PLAN FOR INPATIENT GLYCEMIC CONTROL: * Hold outpatient insulin pump * Basal insulin * Lantus 27 units SQ daily at 1630 * Bolus insulin * NovoLog per scale ACHS or Q6hrs while NPO * Goal Range: Low 110 mg/dL - High 140 mg/dL * Correction Factor: 30 mg/dL/unit * Nutritional / Prandial insulin per carb ratio of 1 unit per 10 grams CHO consumed
[2022-09-30] MEDS ORDERED: LANTUS PER UNIT CHARGE SQ SCH (16:30)
[2022-09-30 16:33] LABS: Adenovirus F 40/41 PCR Not Detected (NotDetected); Astrovirus PCR Not Detected (NotDetected); Campylobacter PCR Not Detected (NotDetected); Cryptosporidium PCR Not Detected (NotDetected); Cyclospora cayetanensis PCR Not Detected (NotDetected); Entamoeba histolytica PCR Not Detected (NotDetected); Enteroaggregative E.coli(EAEC) Not Detected (NotDetected); Enteropathogenic E.coli (EPEC) Not Detected (NotDetected); Enterotoxigenic E.coli (ETEC) Not Detected (NotDetected); Giardia lamblia PCR Not Detected (NotDetected); Norovirus GI/GII PCR Not Detected (NotDetected); Plesiomonas shigelloides PCR Not Detected (NotDetected); Rotavirus A PCR Not Detected (NotDetected); Salmonella PCR Not Detected (NotDetected); Sapovirus PCR Not Detected (NotDetected); Shiga-like Toxin E.coli (STEC) Not Detected (NotDetected); Shigella/Enteroinvasive E.coli Not Detected (NotDetected); Vibrio cholerae PCR Not Detected (NotDetected); Vibrio species PCR Not Detected (NotDetected); Yersinia enterocolitica PCR Not Detected (NotDetected)
[2022-10-01] MEDS: CARBOHYDRATES FOR HYPOGLYCEMIA PO PRN (07:20)
[2022-10-01] MEDS: SUCRALFATE 1 GM/10 ML UDC PO SCH ×4 (07:26→19:28)
[2022-10-01] MEDS: NICOTINE 21 MG/24 HR TDSY TD SCH (07:26)
[2022-10-01] MEDS: PANTOprazole 40 MG in SYRINGE 0 ML IV SCH (07:27)
[2022-10-01] MEDS: NSS + 20MEQ KCL 20 MEQ/1,000 ML BAG IV SCH ×2 (07:28→21:30)
[2022-10-01] MEDS: HEPARIN SOD 5,000 UNIT/0.5 ML VIAL SQ SCH ×2 (07:31→19:42)
[2022-10-01] MEDS: INSULIN ASPART PER UNIT SC SCH ×4 (08:59→19:22)
--- NOTE | 2022-10-01 11:17 | Pharmacy Report ---
Pharmacy Glycemic Short Note 2 - Date of Service October 01, 2022 - Glycemic Short BSG Results (Last 24 hours): 09/30/22 09/30/22 09/30/22 11:18 16:25 19:33 POC Glucose 166 H 194 H 242 H 10/01/22 10/01/22 10/01/22 07:06 07:10 07:21 POC Glucose 65 L* 56 L* 63 L* 10/01/22 07:41 POC Glucose 104 H OUTPATIENT ANTIDIABETIC REGIMEN: * Pump settings in March 2022: Novolog via Medtronic 670G insulin pump Basal: 8977-6691: 1.1 units/hr 6875-9435: 1.2 units/hr Total: 27.2 units ICR: 11 SF:50 BG Target: 90-140 TDD: 36 units Basal: 27 units (75%) Bolus: 9 units (25%) ASSESSMENT: 10/01 * Patient received total of 41 units of insulin yesterday, of which 27 units were basal * Fasting BSG low at 65 mg/dL - treated per hypoglycemia protocol, repeat 104 mg/dL * Per notes, patient with intermittent nausea, PO intake still lower * Will plan to scale back more on basal this evening ~18% 09/30 * Patient received total of 51 units of insulin yesterday, of which 30 units were basal insulin * Fasting BSG improving much more 115 mg/dL - PO intake remains low today, will scale back slightly on basal ~10% (this will be same basal as insulin pump settings at home) * No change CF/CR for now 09/29 * 37 yo male, type 1 DM managed by insulin pump, admitted w/ N/V and periumbilical abdominal pain x 2 days, started on IV fluids, Protonix, and ceftriaxone. Hx of Cdiff, on clear liquids at this time. * Patient unable to be interviewed at this time regarding current pump settings, was just incontinent of bowel and vomiting. * Insulin pump stopped last night, and patient given 30 units of Lantus * Blood sugar better this morning, but patient did refuse NovoLog with breakfast, resulting in BSG 250mg/dl prior to lunch. * Will attempt to get updated pump settings when patient feeling better for discussion. PLAN FOR INPATIENT GLYCEMIC CONTROL: * Hold outpatient insulin pump * Basal insulin - decrease * Lantus 22 units SQ daily at 1630 * Bolus insulin * NovoLog per scale ACHS or Q6hrs while NPO * Goal Range: Low 110 mg/dL - High 140 mg/dL * Correction Factor: 55 mg/dL/unit * Nutritional / Prandial insulin per carb ratio of 1 unit per 10 grams CHO consumed
--- NOTE | 2022-10-01 14:17 | Hospitalist Progress Note ---
Date of Service October 01, 2022 Assessment & Plan (1) Type 1 diabetes mellitus: (2) Severe hyperglycemia due to diabetes mellitus: (3) Vomiting: (4) Gastroenteritis: Plan: per Dr. Pantoja's notes with addendum: Past medical history of type 1 diabetes mellitus on insulin pump, history of C. difficile Presents with nausea vomiting and periumbilical abdominal pain for 2 days Leukocytosis present. Bicarb of 26. Anion gap is 17. VBG shows pH of 7.4. CT abdomen without contrast done on admission due to severe periumbilical pain. No acute abnormality found. Leukocytosis slightly improved. Blood culture pending Plan; -Continue on on empiric ceftriaxone; will DC if blood culture is negative in 48 hours. -Follow-up on GI PCR panel and C. difficile. -Protonix for possible reflux esophagitis. GI consulted for severe nausea, vomiting. 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 -Decreased rate of IV hydration with normal saline plus potassium to 100 cc/h from 150 cc -Advance diet as tolerated His insulin pump is on hold. He is currently on Lantus 30 units at bedtime; NovoLog AC HS; pharmacy on board. 10/01 Diarrhea improving, had 3 bowel movements since yesterday which is usual for patient Stool PCR panel including C. difficile: Negative Discontinue Ceftriaxone IV main symptom is severe reflux, intermittent nausea, difficulty keeping food down will order Magic Mouthwash PRN, Sucralfate QID --Resolving Advance diet discussed with GI, no slot for EGD/Colonoscopy as inpatient outpatient EGD/Colonoscopy scheduled for Tuesday Will add lipase enzymes for possible pancreatic insufficiency Continue to monitor (5) JESSIE (acute kidney injury): Plan: Likely prerenal due to dehydration. Creatinine 1.46 on admission; baseline 0.64 Improvement of creatinine by her IV hydration. Urine electrolytes suggest prerenal cause. Continue IV fluids for now. Daily BMP. 10/01 resolved continue IV fluids until oral intake improves Plan DVT Heparin CODE STATUS full plan of care discussed with patient in detail and at length all questions answered he is understanding, agreeable, comfortable with the plan of care Admission and Anticipated Discharge Date Admission Date: September 28, 2022 Subjective Follow-up for gastroenteritis, nausea vomiting of epigastric pain, etc. Seen sitting up in bed, not in distress States epigastric pain, nausea improving today Able to tolerate TV, eggs with breakfast Had 3 loose bowel movements since yesterday, no abdominal pain, fevers or chills No other symptoms Review of Systems Review of Systems: all noted and negative except for above Physical Exam Physical Exam: General- oriented x 3, not in distress, speaks in sentences with no effort or accessory muscle use Eyes- anicteric Neck- no JVD Lungs- clear BS bilaterally, no crackles, no wheezing Heart- normal rate, regular rhythm; no murmurs Abdomen- normal bowel sounds, nondistended, soft, mild epigastric tenderness Extremities- no pretibial edema, no calf tenderness Neuro- alert, oriented x 3; no gross focal neurologic deficits Skin- warm & dry Results & Data Results & Data ([facility]) Vital Signs (Past 12 Hours) Vital Signs Temp Pulse Pulse Resp BP Pulse Ox O2 Del Method 10/01/22 06:30 36.7 C 73 18 149/91 H 97 Room Air 10/01/22 04:04 36.8 C 78 16 128/82 98 Room Air all noted and reviewed including below
[2022-10-01] MEDS: PANCREAZE (LIPASE 10,500U) CAP PO SCH ×2 (15:03→19:28)
[2022-10-01] MEDS ORDERED: LANTUS PER UNIT CHARGE SQ SCH (16:30)
[2022-10-02] MEDS: NSS + 20MEQ KCL 20 MEQ/1,000 ML BAG IV SCH (05:37)
[2022-10-02] MEDS: PANCREAZE (LIPASE 10,500U) CAP PO SCH ×3 (07:47→17:27)
[2022-10-02] MEDS: SUCRALFATE 1 GM/10 ML UDC PO SCH ×4 (07:47→19:55)
[2022-10-02] MEDS: INSULIN ASPART PER UNIT SC SCH ×4 (07:57→19:49)
[2022-10-02] MEDS: NICOTINE 21 MG/24 HR TDSY TD SCH (07:58)
[2022-10-02] MEDS: PANTOprazole 40 MG in SYRINGE 0 ML IV SCH (07:58)
[2022-10-02] MEDS: HEPARIN SOD 5,000 UNIT/0.5 ML VIAL SQ SCH ×2 (08:47→19:58)
[2022-10-02 11:43] LABS: Calcium 8.3 mg/dl (8.5-10.1); Potassium 4.1 mmol/L (3.5-5.1)
[2022-10-02 11:48] LABS: BUN Creatinine Ratio 12.2 (10-20); Creatinine Clr Calc Pharmacy 148.4 ml/min; Est GFR (African American) 138.5 ml/min; Est GFR (Non-African American) 119.5 ml/min
--- NOTE | 2022-10-02 16:10 | Hospitalist Progress Note ---
Date of Service October 02, 2022 Assessment & Plan (1) Type 1 diabetes mellitus: (2) Severe hyperglycemia due to diabetes mellitus: (3) Vomiting: (4) Gastroenteritis: Plan: per Dr. Pantoja's notes with addendum: Past medical history of type 1 diabetes mellitus on insulin pump, history of C. difficile Presents with nausea vomiting and periumbilical abdominal pain for 2 days Leukocytosis present. Bicarb of 26. Anion gap is 17. VBG shows pH of 7.4. CT abdomen without contrast done on admission due to severe periumbilical pain. No acute abnormality found. Leukocytosis slightly improved. Blood culture pending Plan; -Continue on on empiric ceftriaxone; will DC if blood culture is negative in 48 hours. -Follow-up on GI PCR panel and C. difficile. -Protonix for possible reflux esophagitis. GI consulted for severe nausea, vomiting. 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 -Decreased rate of IV hydration with normal saline plus potassium to 100 cc/h from 150 cc -Advance diet as tolerated His insulin pump is on hold. He is currently on Lantus 30 units at bedtime; NovoLog AC HS; pharmacy on board. 10/01 Diarrhea improving, had 3 bowel movements since yesterday which is usual for patient Stool PCR panel including C. difficile: Negative Discontinue Ceftriaxone IV main symptom is severe reflux, intermittent nausea, difficulty keeping food down will order Magic Mouthwash PRN, Sucralfate QID --Resolving Advance diet 10/02 Patient further improving Diarrhea resolved, continue pancreas enzymes 3 times daily Continue to monitor Anticipate discharge tomorrow discussed with GI, no slot for EGD/Colonoscopy as inpatient outpatient EGD/Colonoscopy scheduled for Tuesday (5) JESSIE (acute kidney injury): Plan: Likely prerenal due to dehydration. Creatinine 1.46 on admission; baseline 0.64 Improvement of creatinine by her IV hydration. Urine electrolytes suggest prerenal cause. Continue IV fluids for now. Daily BMP. 10/02 resolved Plan DVT Heparin CODE STATUS full plan of care discussed with patient in detail and at length all questions answered he is understanding, agreeable, comfortable with the plan of care Admission and Anticipated Discharge Date Admission Date: September 28, 2022 Subjective Follow-up for viral gastro enteritis, nausea vomiting, etc. Seen sitting up in bed, comfortable, not in distress, in good spirits States he continues to feel better overall No diarrhea since yesterday, feels pancreas enzymes helping No nausea and vomiting, able to tolerate food with no pain over the esophagus/epigastric area No abdominal pain No fevers or chills No other symptoms Review of Systems Review of Systems: all noted and negative except for above Physical Exam Physical Exam: General- oriented x 3, not in distress, speaks in sentences with no effort or accessory muscle use Eyes- anicteric Neck- no JVD Lungs- clear BS bilaterally, no rales/wheezes Heart- normal rate, regular rhythm; no murmurs Abdomen- normal bowel sounds, nondistended, soft, no tenderness Extremities- no pretibial edema, no calf tenderness Neuro- alert, oriented x 3; no gross focal neurologic deficits Skin- warm & dry Results & Data Results & Data ([facility]) Vital Signs (Past 12 Hours) Vital Signs Temp Pulse Resp BP Pulse Ox O2 Del Method 10/02/22 15:56 36.5 C 79 18 142/85 H 98 Room Air 10/02/22 12:12 36.8 C 93 H 17 147/87 H 96 Room Air 10/02/22 07:44 36.7 C 80 18 149/89 H 97 Room Air all noted and reviewed including below
[2022-10-02] MEDS ORDERED: LANTUS PER UNIT CHARGE SQ SCH (16:30)
[2022-10-02] MEDS: CARBOHYDRATES FOR HYPOGLYCEMIA PO PRN ×2 (23:30→23:45)
[2022-10-03] MEDS: CARBOHYDRATES FOR HYPOGLYCEMIA PO PRN (00:15)
[2022-10-03] MEDS ORDERED: PANCREAZE (LIPASE 10,500U) CAP PO SCH (08:00)
[2022-10-03] MEDS: NICOTINE 21 MG/24 HR TDSY TD SCH (08:03)
[2022-10-03] MEDS: SUCRALFATE 1 GM/10 ML UDC PO SCH (08:03)
[2022-10-03] MEDS: PANTOprazole 40 MG in SYRINGE 0 ML IV SCH (08:04)
[2022-10-03] MEDS: INSULIN ASPART PER UNIT SC SCH (08:27)
[2022-10-03] MEDS: HEPARIN SOD 5,000 UNIT/0.5 ML VIAL SQ SCH (10:29)
[2022-10-03] MEDS ORDERED: INSULIN ASPART 100 UNITS/ML VIAL SC PRN (10:30)
[2022-10-03] MEDS ORDERED: INSULIN ASPART PER UNIT SC ONE (10:30)
[2022-10-03] MEDS ORDERED: INSULIN, Rapid-Acting PUMP SCH (11:30)
--- NOTE | 2022-10-03 16:40 | Hospitalist Progress Note ---
Date of Service October 03, 2022 Assessment & Plan (1) Type 1 diabetes mellitus: (2) Severe hyperglycemia due to diabetes mellitus: (3) Vomiting: (4) Gastroenteritis: Plan: per Dr. Pantoja's notes with addendum: Past medical history of type 1 diabetes mellitus on insulin pump, history of C. difficile Presents with nausea vomiting and periumbilical abdominal pain for 2 days Leukocytosis present. Bicarb of 26. Anion gap is 17. VBG shows pH of 7.4. CT abdomen without contrast done on admission due to severe periumbilical pain. No acute abnormality found. Leukocytosis slightly improved. Blood culture negative given empiric Ceftraxone Stool PCR panel including C. difficile: Negative Discontinued Ceftriaxone IV main symptom is severe reflux, intermittent nausea, difficulty keeping food down ordered Magic Mouthwash PRN, Sucralfate QID discussed with telehealth nurse educator, patient may have exocrine pancreatic insufficiency Recommend pancreas enzymes to hopefully help with diarrhea Started Pancrease 3 times daily, diarrhea improved 10/03 clinically much better Diarrhea resolved, continue pancreas enzymes 3 times daily continue 3 days of Sucralfate, 1 week of Protonix EGD/Colonoscopy scheduled this coming Tuesday PCP in 1 week (5) JESSIE (acute kidney injury): Plan: Likely prerenal due to dehydration. Creatinine 1.46 on admission; baseline 0.64 Given IV fluids Resolved Plan DVT Heparin CODE STATUS full plan of care discussed with patient in detail and at length all questions answered he is understanding, agreeable, comfortable with the plan of care Admission and Anticipated Discharge Date Admission Date: September 28, 2022 Subjective Follow-up for possible viral gastroenteritis, nausea vomiting, etc. Seen sitting up in bed comfortable, not in distress In good spirits No diarrhea x2 days, epigastric/esophageal pain continues to improve Tolerating diet well No fevers or chills States he is ready for discharge today No other symptoms Review of Systems Review of Systems: all noted and negative except for above Physical Exam Physical Exam: General- oriented x 3, not in distress, speaks in sentences with no effort or accessory muscle use Eyes- anicteric Neck- no JVD Lungs- clear BS bilaterally, no rales/wheezes Heart- normal rate, regular rhythm; no murmurs Abdomen- normal bowel sounds, nondistended, soft, no tenderness Extremities- no pretibial edema, no calf tenderness Neuro- alert, oriented x 3; no gross focal neurologic deficits Skin- warm & dry Results & Data Results & Data ([facility]) Vital Signs (Past 12 Hours) Vital Signs Temp Pulse Pulse Resp BP Pulse Ox O2 Del Method 10/03/22 11:14 36.6 C 104 H 18 138/86 97 Room Air 10/03/22 10:32 36.6 C 78 89 18 123/77 96 10/03/22 07:20 36.6 C 89 18 123/77 96 Room Air all noted and reviewed including below
--- NOTE | 2022-10-03 16:48 | Discharge Summary ---
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 Past medical history of type 1 diabetes mellitus on insulin pump, history of C. difficile in 2019, history of chronic diarrhea. Last confinement in March 2022 with severe hyperglycemia. Patient presents with nausea, vomiting and periumbilical abdominal pain which started 2 days ago. Patient also reports subjective fever and chills. The vomitus contains food particles; no blood noticed. Also reports decreased urinary output in last 24 hours. He also reports a burning sensation at the back of the throat and in the epigastric region due to vomiting. He denies headache, visual changes, urinary symptoms like urgency, increased frequency, focal weakness, chest pain or shortness of breath. Reports that his diarrhea has been under control lately. He is a scheduled for outpatient GI follow-up. On presentation to the ED, he was normotensive, tachycardic, afebrile and saturating well in room air. WBC was noted to be 20.15 with predominantly neutrophils. Sodium of 130. BUN/creatinine are elevated consistent with acute kidney injury. His blood glucose level was 317 with bicarb of 26 and anion gap of 17. VBG does not show any acidosis. Admission Exam Per Admitting Provider Constitutional: Tired looking; in mild distress. Alert orient x3. Respiratory: normal respiratory effort, lungs clear to auscultation, no wheeze, rales, rhonchi. Normal insp/exp effort, no accessory muscle use Cardiovascular: RRR, no murmur, no edema Vessels: no JVD or carotid bruit Chest: normal inspection of chest Abdomen: normal bowel sounds, soft, nontender, no hepatosplenomegaly Musculoskeletal: no cyanosis or clubbing, extremities motor strength 5/5 Skin: no rashes, warm and dry normal turgor Neurologic: PERRL, EOMI, accommodation nl, no face palsy, no dysarthria CN's II- XI intact bilaterally and moves all extremities Psychiatric: A+Ox3, euthymic affect Lymphatic: no cervical or axillary lymphadenopathy : deferred Principal Dx & Hospital Course #1 = Principal Diagnosis (1) Type 1 diabetes mellitus: (2) Severe hyperglycemia due to diabetes mellitus: (3) Vomiting: (4) Gastroenteritis: per Dr. Pantoja's notes with addendum: Past medical history of type 1 diabetes mellitus on insulin pump, history of C. difficile Presents with nausea vomiting and periumbilical abdominal pain for 2 days Leukocytosis present. Bicarb of 26. Anion gap is 17. VBG shows pH of 7.4. CT abdomen without contrast done on admission due to severe periumbilical pain. No acute abnormality found. Leukocytosis slightly improved. Blood culture negative given empiric Ceftraxone Stool PCR panel including C. difficile: Negative Discontinued Ceftriaxone IV main symptom is severe reflux, intermittent nausea, difficulty keeping food down ordered Magic Mouthwash PRN, Sucralfate QID discussed with certified adapted physical educator, patient may have exocrine pancreatic insufficiency Recommend pancreas enzymes to hopefully help with diarrhea Started Pancrease 3 times daily, diarrhea improved 10/03 clinically much better Diarrhea resolved, continue pancreas enzymes 3 times daily continue 3 days of Sucralfate, 1 week of Protonix EGD/Colonoscopy scheduled this coming Tuesday PCP in 1 week (5) JESSIE (acute kidney injury): Likely prerenal due to dehydration. Creatinine 1.46 on admission; baseline 0.64 Given IV fluids Resolved Plan DVT Heparin CODE STATUS full plan of care discussed with patient in detail and at length all questions answered he is understanding, agreeable, comfortable with the plan of care Discharge Exam General- oriented x 3, not in distress, speaks in sentences with no effort or accessory muscle use Eyes- anicteric Neck- no JVD Lungs- clear BS bilaterally, no rales/wheezes Heart- normal rate, regular rhythm; no murmurs Abdomen- normal bowel sounds, nondistended, soft, no tenderness Extremities- no pretibial edema, no calf tenderness Neuro- alert, oriented x 3; no gross focal neurologic deficits Skin- warm & dry Updated Medication List Medication Instructions Recorded Confirmed Type insulin aspart U-100 100 unit/mL 0 unit continuous subcutaneous 09/28/22 History subcutaneous solution infusion CONTINOUS [id number] 1 cap PO TIDM 30 days #90 caps 10/03/22 Rx 36,000-114,000-180,000 unit capsule,delay rel (Creon) pantoprazole 40 mg tablet,delayed 40 mg PO DAILY 7 days #7 tabs 10/03/22 Rx release sucralfate 100 mg/mL oral 1 g (10 mL) PO ACHS 3 days #30 mL 10/03/22 Rx suspension Hospital Stay Data Consultations 09/28/22 17:15 ED Decision to Admit Stat 09/29/22 11:21 Consult Gastroenterology Routine Diagnostic Imagining Performed 09/28/22 17:44 CT abdomen wo con Urgent CT DOSE: 216.50 mGy.cm COMPARISON: Comparison is made to CT abdomen pelvis 03/09/2022 FINDINGS: Lower chest: No acute abnormality. Liver: Unremarkable. No focal lesions are seen. Gallbladder and biliary tree: No calcified gallstones. Normal caliber wall. No intra- or extrahepatic biliary ductal dilation. Pancreas: Unremarkable, no focal lesions. Spleen: Unremarkable. Adrenals: Unremarkable. Kidneys and ureters: Unremarkable. Bowel: Diverticulosis is seen without evidence of diverticulitis. The appendix is visualized and is normal. Lymph nodes Retroperitoneal: Unremarkable. Mesenteric: Unremarkable. Peritoneum: Normal. Vessels: Unremarkable. Abdominal wall: Unremarkable. Bones: Degenerative changes in the visualized spine. IMPRESSION: No acute abnormalities. In particular, the appendix is normal and there is no evidence of bowel obstruction. ACT 112: Negative or not required by law. Pending Results Patient Have Any Pending Studies at Discharge: No Discharge Instructions Given to Patient (Per Discharging Provider) PLEASE REFER TO YOUR NEW MEDICATION LIST AND FOLLOW INSTRUCTIONS CAREFULLY. YOUR NEW MEDICATIONS INCLUDE: Pancreaze- pancreatic enzyme Protonix- antacid Sucralfate- to coat lining of esophagus, stomach PLEASE CALL YOUR PRIMARY CARE PHYSICIAN OR RETURN TO THE ER IF WITH WORSENING OF SYMPTOMS, INCLUDING diarrhea, abdominal pain, fever/chills, etc FOLLOW UP WITH PRIMARY CARE PHYSICIAN OUTLINED ABOVE. COLONOSCOPY SCHEDULED THIS WEEK. Total Time Total Time Spent Total Time Spent (In Minutes): >30 minutes
== END 2022-10-03 14:47 | disposition home or self-care (01) | DRG 638 ==
LOC: ED 13:17 → 2S 17:44 → SUATTDRO 17:44 → 2S 19:28

== ENCOUNTER 2024-03-26 12:16 | Inpatient (IN) ==
--- NOTE | 2024-03-26 12:39 | Emergency Department Note ---
Impression & Plan DKA (diabetic ketoacidosis) Admission ED Provider Note HPI: History obtained from patient and his fiance at the bedside. The patient is a 38-year-old gentleman with history of insulin-dependent diabetes, presents to the emergency department with a chief complaint of nausea and vomiting since earlier this morning. Patient states he normally takes his insulin before meals but he stopped doing it over the past several days secondary to nausea and not eating any food. Patient stated he did take a dose of his 70/30 insulin about 1 hour prior to arrival to the ED. On arrival here to the ED the patient was noted to have a blood sugar greater than 500. Patient is alert and oriented on arrival, he is nauseated but otherwise he is hemodynamically stable and alert, he is saturating well on room air, patient is afebrile on arrival. ROS: - Per HPI Differential Diagnosis: Diabetic ketoacidosis, viral gastroenteritis, acute dehydration/acute kidney injury, sepsis, acute appendicitis, small bowel obstruction, amongst other potential pathologies. *Outpatient medications and allergy history reviewed. PE: General: Alert, frail-appearing HEENT: Normocephalic, trachea midline Eyes: Extraocular eye movement is intact, no scleral erythema Pulmonary: Clear to auscultation bilaterally, no wheezing Cardio: Tachycardic rate with regular rhythm GI: Abdomen is soft to palpation, nondistended : No suprapubic tenderness MSK: No evidence of trauma or malformation of the extremities, no edema Skin: No evidence of rash Neuro: Alert, no focal deficits Psychiatric: Cooperative INDEPENDENT INTERPRETATIONS: potline monitor: (As interpreted by myself): - An order was placed for continuous cardiac monitoring - Patient was noted to be in sinus tachycardia with a rate of 109 EKG: (As interpreted by myself): Rate: 99 Rhythm: Normal sinus rhythm Intervals: Within normal limits ST changes: No ST elevation Time: 1236 Chest x-ray: (As interpreted by myself): No acute disease Interventions provided in ED: -IV fluid bolus, IV Zofran, insulin drip Medical Decision Making: IV was established and lab work obtained, patient was placed on school lunch monitor. Lab work shows no leukocytosis, hemoglobin is normal, platelet count is normal, venous blood gas was obtained that shows mild acidosis with pH 7.29, CMP shows potassium within normal limits, no evidence of acute kidney injury, glucose is elevated at 494, anion gap is also elevated with serum bicarbonate level at 18. Urinalysis shows ketones. I suspect DKA. Patient's abdomen is nontender on my exam, I do not feel CT imaging of the abdomen pelvis is indicated at this time. Patient was placed on insulin drip after IV fluid boluses were initiated. I discussed the patient's presentation with the on-call hospitalist service for [facility] and the patient was admitted to the service of Dr. Unger for further management. Patient was in agreement to the above plan on my reassessment and remained hemodynamically stable at the time of my reassessment. Consultants/Discussions held with other healthcare providers: -Hospitalist, Dr. Unger Disposition discussion held by myself with: -Patient * CRITICAL CARE TIME: (37) minutes -Management of patient with diabetic ketoacidosis requiring initiation of insulin drip for stabilization and correction of hyperglycemia, time spent at the bedside, discussion with other healthcare providers and arrangement of admission Diagnosis: 1. Diabetic ketoacidosis, acute 2. Nausea and vomiting, acute Disposition: Admission Milo Gagr DO Emergency Medicine Past Med/Surg History Problem List (Updated 03/26/24 @ 17:14 by Milo Garg DO) DKA (diabetic ketoacidosis) (Acute) Verbalizes suicidal thoughts Insurance coverage problems Financial insecurity Abdominal pain Gastroenteritis Severe hyperglycemia due to diabetes mellitus (Acute) Chronic diarrhea Hyperglycemic crisis in diabetes mellitus DKA (diabetic ketoacidosis) (Acute) Diarrhea JESSIE (acute kidney injury) (Acute) Elevated lactic acid level (Acute) Dehydration (Acute) Pneumomediastinum Left otitis media with effusion Type 1 diabetes mellitus (Acute) Esophageal perforation (Acute) Vomiting (Acute) Upper abdominal pain (Acute) DKA (diabetic ketoacidoses) (Acute) Epigastric pain (Acute) GERD (gastroesophageal reflux disease) (Acute) Diabetes (Chronic) Hypertension (Chronic) Major depressive disorder, recurrent episode Sebaceous cyst (Acute) Suicidal ideation (Acute) Tobacco abuse disorder Medical History Disorder of male genital organs, unspecified Rectal/anal hemorrhage Hx of psoriasis Surgical History No pertinent past surgical history Family History Father Cardiovascular disease Diabetes Mother Diabetes Other No significant family history Social History Smoking Status: Current every day smoker Tobacco Type: E-cigarettes / Vaping Cigarettes Per Day: 1 pack a day; Do You Dip or Chew Tobacco: No; Hx Alcohol Use: No Hx Substance Use: Yes Non-Prescribed Medications: Marijuana Preferred Language: Bolivian Communication Ability: Effective Fuel Technician Required: No Beliefs That Will Affect Care: None marital status: Single Current Living Situation: Significant Other Current Living Situation Comment: lives with roomates current occupational status: employed Feels Safe at Home: Yes Gender Identity: Male Assistive Devices: None Allergies Allergies Allergy/AdvReac Type Severity Reaction Status Date / Time methyl salicylate Allergy Intermediate HIVES, Verified 03/05/24 08:55 "FEELS LIKE FIRE ON MY SKIN" codeine AdvReac Intermediate BECOMES Verified 03/05/24 08:55 VERY AGGRESSIVE Home Meds Home Medications Medication Instructions Recorded Confirmed insulin NPH-regular 70-30 U-100 See Rx Instructions .Route .COMPLEX 03/05/24 03/26/24 insulin 100 unit/mL subcutaneous pen (Novolin 70-30 FlexPen U-100 Insulin) Results & Data (ED) Vital Signs Vital Signs - 24 hr 03/26/24 12:26 03/26/24 12:43 03/26/24 12:46 Temperature 36.5 C Temperature Source Temporal Artery Scan Pulse Rate 101 H 63 78 Respiratory Rate 24 17 Respiratory Effort / Characteristics Non-Labored Spontaneous Respiratory Depth Normal Blood Pressure 144/89 H Blood Pressure Mean 107 Pulse Oximetry 100 99 Oxygen Delivery Method Room Air Room Air Sepsis Recent Fever Within 48 Hours No Sepsis New/Unexplained Change in Mental Status N/A Sepsis Action Taken by Nursing No Action Required 03/26/24 13:06 03/26/24 13:36 03/26/24 14:15 Temperature Temperature Source Pulse Rate 96 H 97 H 67 Respiratory Rate 12 19 Respiratory Effort / Characteristics Respiratory Depth Blood Pressure Blood Pressure Mean Pulse Oximetry Oxygen Delivery Method Sepsis Recent Fever Within 48 Hours Sepsis New/Unexplained Change in Mental Status Sepsis Action Taken by Nursing 03/26/24 14:22 03/26/24 14:22 03/26/24 14:36 Temperature Temperature Source Pulse Rate 70 Respiratory Rate Respiratory Effort / Characteristics Respiratory Depth Blood Pressure 140/89 140/89 Blood Pressure Mean 101 101 Pulse Oximetry Oxygen Delivery Method Sepsis Recent Fever Within 48 Hours Sepsis New/Unexplained Change in Mental Status Sepsis Action Taken by Nursing 03/26/24 15:12 03/26/24 15:33 Temperature Temperature Source Pulse Rate 106 H 102 H Respiratory Rate 15 19 Respiratory Effort / Characteristics Respiratory Depth Blood Pressure Blood Pressure Mean Pulse Oximetry Oxygen Delivery Method Sepsis Recent Fever Within 48 Hours Sepsis New/Unexplained Change in Mental Status Sepsis Action Taken by Nursing Laboratory Data 03/26/24 13:45 03/26/24 13:45 Lab Results 03/26/24 03/26/24 03/26/24 Range/Units 12:27 12:41 12:42 WBC Cancelled RBC Cancelled Hgb Cancelled POC Hgb (14.0-18.0) g/dl Hct Cancelled POC Hct (42-52) % MCV Cancelled MCH Cancelled MCHC Cancelled RDW Std Deviation Cancelled RDW Coeff of Bhavik Cancelled Plt Count Cancelled MPV Cancelled Immature Gran % (Auto) Cancelled Neut % (Auto) Cancelled Lymph % (Auto) Cancelled [place] % (Auto) Cancelled Eos % (Auto) Cancelled Baso % (Auto) Cancelled Neut # (Auto) Cancelled Lymph # (Auto) Cancelled [place] # (Auto) Cancelled Eos # (Auto) Cancelled Baso # (Auto) Cancelled Immature Gran # (Auto) Cancelled Absolute Nucleated RBC Cancelled Nucleated RBC % (auto) Cancelled Neutrophils % (Manual) Cancelled Band Neutrophils % Cancelled Lymphocytes % (Manual) Cancelled Prolymphocyte % Cancelled Reactive Lymphs % (Man) Cancelled Monocytes % (Manual) Cancelled Eosinophils % (Manual) Cancelled Basophils % (Manual) Cancelled Metamyelocytes % (Man) Cancelled Myelocytes % (Man) Cancelled Promyelocytes % (Man) Cancelled Blast Cells % (Manual) Cancelled Plasma Cell % (Manual) Cancelled Other Cells % Cancelled Nucleated RBC % Cancelled Neutrophils # (Manual) Cancelled Band Neutrophils # Cancelled Total Absolute Neuts Cancelled Lymphocytes # (Manual) Cancelled Prolymphocyte # Cancelled Reactive Lymphs # Cancelled Total Abs Lymphocytes Cancelled Monocytes # (Manual) Cancelled Eosinophils # (Manual) Cancelled Basophils # (Manual) Cancelled Metamyelocytes # (Man) Cancelled Myelocytes # (Manual) Cancelled Promyelocytes # (Man) Cancelled Blast Cells # (Man) Cancelled Plasma Cell # (Manual) Cancelled Other Cells # Cancelled Nucleated RBCs # (Man) Cancelled Hypersegmented Neuts Cancelled Hyposegmented Neuts Cancelled Hypogranular Neuts Cancelled Large Granular Lymphs Cancelled # Lrg Granular Lymphs Cancelled Hairy Cells Cancelled Smudge Cells Cancelled Toxic Granulation Cancelled Toxic Vacuolation Cancelled Dohle Bodies Cancelled Lillian Rods Cancelled Platelet Estimate Cancelled Hypogranular Platelets Cancelled Giant Platelets Cancelled Platelet Satelliting Cancelled RBC Morphology Cancelled Polychromasia Cancelled Hypochromasia Cancelled Poikilocytosis Cancelled Basophilic Stippling Cancelled Anisocytosis Cancelled Microcytosis Cancelled Macrocytosis Cancelled Spherocytes Cancelled Pappenheimer Bodies Cancelled Sickle Cells Cancelled Target Cells Cancelled Tear Drop Cells Cancelled Ovalocytes Cancelled Stomatocytes Cancelled Adams-[place] Bodies Cancelled Echinocytes Cancelled Acanthocytes (Spur) Cancelled Rouleaux Cancelled RBC Agglutinates Cancelled Schistocytes Cancelled Sezary Cell Cancelled PT 9.8 (9.0-12.0) Seconds INR 0.9 (0.9-1.1) VBG pH 7.29 L (7.36-7.41) VBG pCO2 39 (38-50) mmHg VBG pO2 29 mmHg VBG HCO3 19 mmol/L VBG O2 Saturation < 60.0 % VBG Base Excess -7.3 mEq/L POC Sodium (135-144) mmol/L Sodium TNP POC Potassium (3.3-5.0) mmol/L Potassium TNP POC Chloride (101-112) mmol/L Chloride 95 L (98-107) mmol/L Carbon Dioxide 18 L (21-32) mmol/L POC Total CO2 (24-31) mmol/L Anion Gap TNP POC Anion Gap (16-25) mmol/L POC BUN (7-18) mg/dl BUN 19 (6-23) mg/dl Creatinine 1.26 (0.6-1.4) mg/dl POC Creatinine (0.6-1.3) mg/dl Est Cr Clr Drug Dosing 83.5 ml/min Est GFR ( Amer) 84.5 ml/min Est GFR (Non-Af Amer) 72.9 ml/min BUN/Creatinine Ratio 15.1 (10-20) Glucose 494 H* (70-99(Fasting)) mg/dl POC Glucose 559 H* (70-99) mg/dl POC Glucose (other) (70-99) mg/dl Calcium 10.2 (8.6-10.3) mg/dl POC Ioniz Calcium Andrew (1.12-1.32) mmol/l Phosphorus (2.5-4.9) mg/dl Magnesium (1.7-2.4) mg/dl Total Bilirubin 1.0 (0.2-1.0) mg/dl AST TNP ALT 21 (7-52) U/L Alkaline Phosphatase 115 H (34-104) U/L Troponin I High Sens 5.8 (0-20) pg/ml Total Protein 8.6 H (6.0-8.3) gm/dl Albumin 5.1 H (3.4-5.0) gm/dl Globulin 3.5 (2.5-4.0) gm/dl Albumin/Globulin Ratio 1.5 (0.9-2) Lipase 12 (11-82) U/L Urine Color Urine Appearance (Clear) Urine pH (4.5-7.5) Ur Specific Wirt (1.000-1.030) Urine Protein (Negative) Urine Glucose (UA) (Negative) Urine Ketones (Negative) Urine Blood (Negative) Urine Nitrite (Negative) Urine Bilirubin (Negative) Urine Urobilinogen (Negative) Ur Leukocyte Esterase (Negative) Blood Parasites ID Cancelled 03/26/24 03/26/24 03/26/24 Range/Units 12:45 13:45 14:34 WBC 8.69 RBC 4.38 L Hgb 14.0 POC Hgb 15.6 (14.0-18.0) g/dl Hct 38.9 L POC Hct 46 (42-52) % MCV 88.8 MCH 32.0 MCHC 36.0 RDW Std Deviation 39.0 RDW Coeff of Bhavik 12.0 Plt Count 145 MPV 10.0 Immature Gran % (Auto) 0.3 Neut % (Auto) 86.8 Lymph % (Auto) 5.3 [place] % (Auto) 6.7 Eos % (Auto) 0.3 Baso % (Auto) 0.6 Neut # (Auto) 7.54 H Lymph # (Auto) 0.46 L [place] # (Auto) 0.58 Eos # (Auto) 0.03 Baso # (Auto) 0.05 Immature Gran # (Auto) 0.03 Absolute Nucleated RBC Nucleated RBC % (auto) Neutrophils % (Manual) Band Neutrophils % Lymphocytes % (Manual) Prolymphocyte % Reactive Lymphs % (Man) Monocytes % (Manual) Eosinophils % (Manual) Basophils % (Manual) Metamyelocytes % (Man) Myelocytes % (Man) Promyelocytes % (Man) Blast Cells % (Manual) Plasma Cell % (Manual) Other Cells % Nucleated RBC % Neutrophils # (Manual) Band Neutrophils # Total Absolute Neuts Lymphocytes # (Manual) Prolymphocyte # Reactive Lymphs # Total Abs Lymphocytes Monocytes # (Manual) Eosinophils # (Manual) Basophils # (Manual) Metamyelocytes # (Man) Myelocytes # (Manual) Promyelocytes # (Man) Blast Cells # (Man) Plasma Cell # (Manual) Other Cells # Nucleated RBCs # (Man) Hypersegmented Neuts Hyposegmented Neuts Hypogranular Neuts Large Granular Lymphs # Lrg Granular Lymphs Hairy Cells Smudge Cells Toxic Granulation Toxic Vacuolation Dohle Bodies Lillian Rods Platelet Estimate Hypogranular Platelets Giant Platelets Platelet Satelliting RBC Morphology Polychromasia Hypochromasia Poikilocytosis Basophilic Stippling Anisocytosis Microcytosis Macrocytosis Spherocytes Pappenheimer Bodies Sickle Cells Target Cells Tear Drop Cells Ovalocytes Stomatocytes Adams-[place] Bodies Echinocytes Acanthocytes (Spur) Rouleaux RBC Agglutinates Schistocytes Sezary Cell PT (9.0-12.0) Seconds INR (0.9-1.1) VBG pH (7.36-7.41) VBG pCO2 (38-50) mmHg VBG pO2 mmHg VBG HCO3 mmol/L VBG O2 Saturation % VBG Base Excess mEq/L POC Sodium 134 L (135-144) mmol/L Sodium 137 POC Potassium 5.0 (3.3-5.0) mmol/L Potassium 4.2 POC Chloride 97 L (101-112) mmol/L Chloride (98-107) mmol/L Carbon Dioxide (21-32) mmol/L POC Total CO2 19 L (24-31) mmol/L Anion Gap POC Anion Gap 24.0 (16-25) mmol/L POC BUN 22 H (7-18) mg/dl BUN (6-23) mg/dl Creatinine (0.6-1.4) mg/dl POC Creatinine 1.1 (0.6-1.3) mg/dl Est Cr Clr Drug Dosing ml/min Est GFR ( Amer) ml/min Est GFR (Non-Af Amer) ml/min BUN/Creatinine Ratio (10-20) Glucose (70-99(Fasting)) mg/dl POC Glucose 303 H* (70-99) mg/dl POC Glucose (other) 482 H* (70-99) mg/dl Calcium (8.6-10.3) mg/dl POC Ioniz Calcium Andrew 1.19 (1.12-1.32) mmol/l Phosphorus 3.1 (2.5-4.9) mg/dl Magnesium 1.8 (1.7-2.4) mg/dl Total Bilirubin (0.2-1.0) mg/dl AST 15 ALT (7-52) U/L Alkaline Phosphatase (34-104) U/L Troponin I High Sens (0-20) pg/ml Total Protein (6.0-8.3) gm/dl Albumin (3.4-5.0) gm/dl Globulin (2.5-4.0) gm/dl Albumin/Globulin Ratio (0.9-2) Lipase (11-82) U/L Urine Color Urine Appearance (Clear) Urine pH (4.5-7.5) Ur Specific Wirt (1.000-1.030) Urine Protein (Negative) Urine Glucose (UA) (Negative) Urine Ketones (Negative) Urine Blood (Negative) Urine Nitrite (Negative) Urine Bilirubin (Negative) Urine Urobilinogen (Negative) Ur Leukocyte Esterase (Negative) Blood Parasites ID 03/26/24 03/26/24 03/26/24 Range/Units 16:08 17:05 Unknown WBC RBC Hgb POC Hgb (14.0-18.0) g/dl Hct POC Hct (42-52) % MCV MCH MCHC RDW Std Deviation RDW Coeff of Bhavik Plt Count MPV Immature Gran % (Auto) Neut % (Auto) Lymph % (Auto) [place] % (Auto) Eos % (Auto) Baso % (Auto) Neut # (Auto) Lymph # (Auto) [place] # (Auto) Eos # (Auto) Baso # (Auto) Immature Gran # (Auto) Absolute Nucleated RBC Nucleated RBC % (auto) Neutrophils % (Manual) Band Neutrophils % Lymphocytes % (Manual) Prolymphocyte % Reactive Lymphs % (Man) Monocytes % (Manual) Eosinophils % (Manual) Basophils % (Manual) Metamyelocytes % (Man) Myelocytes % (Man) Promyelocytes % (Man) Blast Cells % (Manual) Plasma Cell % (Manual) Other Cells % Nucleated RBC % Neutrophils # (Manual) Band Neutrophils # Total Absolute Neuts Lymphocytes # (Manual) Prolymphocyte # Reactive Lymphs # Total Abs Lymphocytes Monocytes # (Manual) Eosinophils # (Manual) Basophils # (Manual) Metamyelocytes # (Man) Myelocytes # (Manual) Promyelocytes # (Man) Blast Cells # (Man) Plasma Cell # (Manual) Other Cells # Nucleated RBCs # (Man) Hypersegmented Neuts Hyposegmented Neuts Hypogranular Neuts Large Granular Lymphs # Lrg Granular Lymphs Hairy Cells Smudge Cells Toxic Granulation Toxic Vacuolation Dohle Bodies Lillian Rods Platelet Estimate Hypogranular Platelets Giant Platelets Platelet Satelliting RBC Morphology Polychromasia Hypochromasia Poikilocytosis Basophilic Stippling Anisocytosis Microcytosis Macrocytosis Spherocytes Pappenheimer Bodies Sickle Cells Target Cells Tear Drop Cells Ovalocytes Stomatocytes Adams-[place] Bodies Echinocytes Acanthocytes (Spur) Rouleaux RBC Agglutinates Schistocytes Sezary Cell PT (9.0-12.0) Seconds INR (0.9-1.1) VBG pH (7.36-7.41) VBG pCO2 (38-50) mmHg VBG pO2 mmHg VBG HCO3 mmol/L VBG O2 Saturation % VBG Base Excess mEq/L POC Sodium (135-144) mmol/L Sodium POC Potassium (3.3-5.0) mmol/L Potassium POC Chloride (101-112) mmol/L Chloride (98-107) mmol/L Carbon Dioxide (21-32) mmol/L POC Total CO2 (24-31) mmol/L Anion Gap POC Anion Gap (16-25) mmol/L POC BUN (7-18) mg/dl BUN (6-23) mg/dl Creatinine (0.6-1.4) mg/dl POC Creatinine (0.6-1.3) mg/dl Est Cr Clr Drug Dosing ml/min Est GFR ( Amer) ml/min Est GFR (Non-Af Amer) ml/min BUN/Creatinine Ratio (10-20) Glucose (70-99(Fasting)) mg/dl POC Glucose 163 H 121 H (70-99) mg/dl POC Glucose (other) (70-99) mg/dl Calcium (8.6-10.3) mg/dl POC Ioniz Calcium Andrew (1.12-1.32) mmol/l Phosphorus (2.5-4.9) mg/dl Magnesium (1.7-2.4) mg/dl Total Bilirubin (0.2-1.0) mg/dl AST ALT (7-52) U/L Alkaline Phosphatase (34-104) U/L Troponin I High Sens (0-20) pg/ml Total Protein (6.0-8.3) gm/dl Albumin (3.4-5.0) gm/dl Globulin (2.5-4.0) gm/dl Albumin/Globulin Ratio (0.9-2) Lipase (11-82) U/L Urine Color Yellow Urine Appearance Clear (Clear) Urine pH 5.5 (4.5-7.5) Ur Specific Wirt 1.033 H (1.000-1.030) Urine Protein Negative (Negative) Urine Glucose (UA) 3+ H (Negative) Urine Ketones 4+ H (Negative) Urine Blood Negative (Negative) Urine Nitrite Negative (Negative) Urine Bilirubin Negative (Negative) Urine Urobilinogen Negative (Negative) Ur Leukocyte Esterase Negative (Negative) Blood Parasites ID Administered Medications Insulin Human Regular 250 (units/ Sodium Chloride) 250 mls @ 0 mls/hr IV .Q0M [facility]; Protocol Stop: 04/25/24 14:44 Last Titration: 03/26/24 17:09 Dose: 0 units/hr, 0 mls/hr Documented By: JOE Co-signed By: SHINE Titration: 03/26/24 16:41 Dose: 4.3 units/hr, 4.3 mls/hr Documented By: JOE Co-signed By: SHINE Titration: 03/26/24 16:11 Dose: 0 units/hr, 0 mls/hr Documented By: JOE Co-signed By: MIGEL Admin: 03/26/24 15:05 Dose: 7.2 units/hr, 7.2 mls/hr Documented By: JOE Co-signed By: MANUEL Potassium Chloride/Dextrose/Sod Cl (D5w And 1/2nss + 20meq Kcl) 20 meq in 1,000 mls @ 200 mls/hr IV .Q5H GIL Stop: 04/25/24 16:59 Last Admin: 03/26/24 17:10 Dose: 200 mls/hr Documented By: JOE Discontinued Medications Sodium Chloride (Nss) 1,000 mls @ 999 mls/hr IV .Q1H1M STA Stop: 03/26/24 13:35 Last Infusion: 03/26/24 13:53 Dose: Infused Documented By: Admin: 03/26/24 12:40 Dose: 999 mls/hr Documented By: JOE Sodium Chloride (Nss) 1,000 mls @ 999 mls/hr IV .Q1H1M ONE Stop: 03/26/24 13:36 Last Infusion: 03/26/24 13:53 Dose: Infused Documented By: Admin: 03/26/24 12:40 Dose: 999 mls/hr Documented By: JOE Insulin Human Regular (Novolin-R Bolus From Bag) 7 units IV ONE ONE Stop: 03/26/24 14:46 Last Admin: 03/26/24 15:07 Dose: 7 units Documented By: JOE Co-signed By: MANUEL Donohue (Stat Iv Infusion Titration Per Protocol) 1 each N/A NOW STA Stop: 03/26/24 14:22 Last Admin: 03/26/24 17:09 Dose: 1 each Documented By: JOE Donohue (Dka Goal Range 150-250 Mg/Dl) 1 each N/A ONE ONE Stop: 03/26/24 14:32 Last Admin: 03/26/24 17:09 Dose: 1 each Documented By: JOE Ondansetron HCl (Ondansetron Inj 2 Mg/Ml 2 Ml Vial) 4 mg IV NOW STA Stop: 03/26/24 12:36 Last Admin: 03/26/24 12:40 Dose: 4 mg Documented By: JOE Ondansetron HCl (Ondansetron Inj 2 Mg/Ml 2 Ml Vial) Confirm Administered Dose 4 mg .ROUTE .STK-MED ONE Stop: 03/26/24 12:37 Last Admin: 03/26/24 12:40 Dose: Not Given Documented By: JOE Ondansetron HCl (Ondansetron Inj 2 Mg/Ml 2 Ml Vial) 4 mg IV NOW STA Stop: 03/26/24 14:15 Last Admin: 03/26/24 14:19 Dose: 4 mg Documented By: JOE Imaging Data Radiologist's Impression: Chest X-Ray 03/26/24 12:35 XR chest 1V portable CLINICAL HISTORY: Nausea and vomiting. COMPARISON STUDY: Chest radiograph September 28, 2022. Chest CT May 21, 2019. FINDINGS: Lung volumes are normal. Lungs are clear. There is no pneumothorax or pleural effusion. Cardiac size is normal. Mediastinal contours are normal. There is no evidence for pulmonary edema. IMPRESSION: No acute cardiopulmonary findings. ACT 112: Negative or not required by law. Electronically signed by: Luiz Davey M.D. 03/26/2024 2:06 PM Discharge Plan Visit Data Chief Complaint: Vomiting Stated Complaint: TYPE 1 DIABETIC, VOMITING 6 HOURS ED Provider: Milo Garg Discharge Problem: DKA (diabetic ketoacidosis) Forms Stand Alone Forms: [facility] [employer] Prescriptions Prescriptions: No Action Novolin 70-30 FlexPen U-100 100 unit/mL (70-30) Insulin Pen See Rx Instructions .ROUTE .COMPLEX Rx Instructions: Pt purchases this OTC at [facility] due to no insurance. Was previously on the pump. Now uses this per sliding scale with each meal. Referrals Referrals: Willian Schultz MD [Primary Care Provider] - Discharge Problem: DKA (diabetic ketoacidosis) Qualifiers: Diabetes mellitus type: due to underlying condition Diabetes mellitus complication detail: without coma Qualified Code(s): E08.10 - Diabetes mellitus due to underlying condition with ketoacidosis without coma
[2024-03-26] MEDS: ONDANSETRON INJ 2 MG/ML 2 ML VIAL IV STA ×2 (12:40→14:19)
[2024-03-26] MEDS: SODIUM CHLORIDE 0.9% 1,000 ML IV ONE (12:40)
[2024-03-26] MEDS: ONDANSETRON INJ 2 MG/ML 2 ML VIAL ONE (12:40)
[2024-03-26] MEDS: SODIUM CHLORIDE 0.9% 1,000 ML IV STA (12:40)
[2024-03-26 12:59] LABS: Base Excess VBG -7.3 mEq/L; HCO3 VBG 19 mmol/L; Oxygen Saturation VBG < 60.0 %; PCO2 VBG 39 mmHg (38-50); PO2 VBG 29 mmHg; pH VBG 7.29 (7.36-7.41)
[2024-03-26 13:15] LABS: iSTAT Creatinine 1.1 mg/dl (0.6-1.3); iSTAT Hemoglobin 15.6 g/dl (14.0-18.0); iSTAT Ionized Calcium 1.19 mmol/l (1.12-1.32)
[2024-03-26 13:26] LABS: Alanine Aminotransferase 21 U/L (7-52); Albumin Globulin Ratio 1.5 (0.9-2); Albumin Level 5.1 gm/dl (3.4-5.0); Alkaline Phosphatase 115 U/L (34-104); BUN Creatinine Ratio 15.1 (10-20); Blood Urea Nitrogen 19 mg/dl (6-23); Calcium 10.2 mg/dl (8.6-10.3); Carbon Dioxide 18 mmol/L (21-32); Chloride 95 mmol/L (98-107); Creatinine Clr Calc Pharmacy 83.5 ml/min; Est GFR (African American) 84.5 ml/min; Est GFR (Non-African American) 72.9 ml/min; Globulin 3.5 gm/dl (2.5-4.0); Glucose 494 mg/dl (70-99(Fasting)); Lipase 12 U/L (11-82); Total Protein 8.6 gm/dl (6.0-8.3); Troponin I High Sensitivity 5.8 pg/ml (0-20)
[2024-03-26 13:30] LABS: INR 0.9 (0.9-1.1); Prothrombin Time 9.8 Seconds (9.0-12.0)
[2024-03-26 13:31] LABS: Appearance Urine Clear (Clear); Bilirubin Urine Negative (Negative); Blood Urine Negative (Negative); Color Urine Yellow; Glucose Urine UA 3+ (Negative); Ketones Urine 4+ (Negative); Leukocyte Esterase Urine Negative (Negative); Nitrite Urine Negative (Negative); Protein Urine Negative (Negative); Specific Gravity Urine 1.033 (1.000-1.030); Urobilinogen Urine Negative (Negative); pH Urine 5.5 (4.5-7.5)
--- NOTE | 2024-03-26 14:07 | XRay Report ---
XR chest 1V portable CLINICAL HISTORY: Nausea and vomiting. COMPARISON STUDY: Chest radiograph September 28, 2022. Chest CT May 21, 2019. FINDINGS: Lung volumes are normal. Lungs are clear. There is no pneumothorax or pleural effusion. Car diac size is normal. Mediastinal contours are normal. There is no evidence for pulmonary edema. IMPRESSION: No acute cardiopulmonary findings. ACT 112: Negative or not required by law. Electronically signed by: Luiz Davey M.D. 03/26/2024 2:06 PM
[2024-03-26 14:18] LABS: Basophils # (auto) 0.05 K/uL (0.00-0.20); Basophils % (auto) 0.6 %; Eosinophils # (auto) 0.03 K/uL (0.00-0.50); Eosinophils % (auto) 0.3 %; Hematocrit (blood only) 38.9 % (42.0-52.0); Immature Granulocytes # (auto) 0.03 K/uL (0.01-0.20); Immature Granulocytes % (auto) 0.3 %; Lymphocytes # (auto) 0.46 K/uL (1.20-3.40); Lymphocytes % (auto) 5.3 %; Mean Corpuscular Volume 88.8 fL (80.0-100.0); Monocytes # (auto) 0.58 K/uL (0.11-0.59); Monocytes % (auto) 6.7 %; Neutrophils # (auto) 7.54 K/uL (1.40-6.50); Neutrophils % (auto) 86.8 %; Platelet Count 145 K/uL (130-400); Potassium 4.2 mmol/L (3.5-5.1); Red Blood Count 4.38 M/uL (4.70-6.10); White Blood Count 8.69 K/ul (4.8-10.8)
[2024-03-26] MEDS ORDERED: INSULIN PROTOCOL GOAL RANGE ONE (14:21)
[2024-03-26] MEDS ORDERED: INSULIN REGULAR 250 UNITS in SODIUM CHLORIDE 0.9% 247.5 ML IV SCH (14:30)
[2024-03-26] MEDS ORDERED: CARBOHYDRATES FOR HYPOGLYCEMIA PO PRN (14:31)
[2024-03-26] MEDS ORDERED: GLUCOSE 40% GEL 15 GM TUBE PO PRN (14:31)
[2024-03-26] MEDS ORDERED: GLUCAGON FOR INJ 1 MG VIAL SQ PRN (14:31)
[2024-03-26] MEDS ORDERED: STAT IV Infusion **Titration per Protocol STA (14:31)
[2024-03-26] MEDS ORDERED: DEXTROSE 50% 50 ML SYRINGE IV PRN (14:31)
[2024-03-26] MEDS ORDERED: GLUCOSE 10 TAB/TUBE PO PRN (14:31)
[2024-03-26 14:53] LABS: Magnesium 1.8 mg/dl (1.7-2.4); Phosphorus 3.1 mg/dl (2.5-4.9)
[2024-03-26] MEDS: INSULIN REGULAR 250 UNITS in SODIUM CHLORIDE 0.9% 247.5 ML IV SCH (15:05)
[2024-03-26] MEDS: NovoLIN-R BOLUS FROM BAG IV ONE (15:07)
--- NOTE | 2024-03-26 15:38 | History & Physical Report ---
Date of Service March 26, 2024 Assessment & Plan (1) DKA (diabetic ketoacidosis): Plan Pt is a 38yoM with medical history significant for DM1, anxiety/mood disorder, history pneumomediastinum, chronic diarrhea, ongoing tobacco abuse who presents with intractable N/V in the setting of DKA. Diabetic Ketoacidosis DMI intractable N/V Presenting with intractable N/V (also chronic diarrhea, see below) States has been using 70/30 insulin, seen at [facility] 2 wks ago, states "switched to the pen" Has been taking TID with meals only Denies recent infection or illness Glucose 494 on admission, hgba1c of 10.7 VBG with pH 7.29, pCO2 39, HCO3 19 Point of Care anion gap of 24 on admission Urine noting 3+ glucose, 4+ ketones Started on insulin drip in the ED with glucose levels dropping quickly to 160s by time of admission Started on D5W with 1/2 NS + 20 of KCl Insulin drip paused, BMP, VBG, mag and phos due for q4h repeat Start on SQ insulin based on repeat labs Glycemic consult 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 Will need case management f/u for med affordability on discharge Continue with q4h BMP, VBG, mag and phos trend Monitor for bloody retching, AM CBC IV Zofran prn Chronic Diarrhea Pt asking for an adult diaper on admission States he has stool incontinence about 4 times a night Notes he was diagnosed with pancreatic insufficiency and cannot afford his medication States the pancrease helped in the past, agreeable to use while in the hospital, not sure if he can afford after discharge Stool cultures ordered to r/o a superimposed acute cause/infection Consider fecal system Started on pancreaze TID Consider GI consult Tobacco abuse Nicotine patch encourage cessation Diet: NPO in setting above, advance as tolerated DVT prophylaxis: SCDs w/ concern for bloody vomitus Dispo: admit to PCU/tele History of Present Illness Chief Complaint: Nausea and vomiting Primary Care Provider: Willian Schultz MD Pt is a 38yoM with medical history significant for DM1, anxiety/mood disorder, history pneumomediastinum, chronic diarrhea, ongoing tobacco abuse who presents with intractable N/V in the setting of DKA. History obtained from pt and fiancee at bedside as well as the chart. States has been using 70/30 insulin three times a day with meals. Was seen at [facility] 2 wks ago, states "was switched to the pen". Adamant that he has been taking the insulin. States he was previously on an insulin pump but unable to afford the pods, notes without insurance it can be $3000. Pt was recently seen by psych with suicide ideation in the setting of not being able to afford his me dications. States this has been going on for the last 8 months. Notes that he usually has the nausea and vomiting but they are usually able to get it under control. They note that today though he was trying to stay hydrated, they could not seem to get it under control. They state he has not been able to eat or drink anything. He notes that he has chronic stool incontinence where he states in his sleep it just leaks out. States cannot afford the pancreatic enzymes he needs to help. Shows stool stains on the ED bed. States he is agreeable to restarting the enzymes but not sure if he will be able to afford it after he leaves the hospital. At the time of admission, notes some improvement in his symptoms. Allergies Allergy/AdvReac Type Severity Reaction Status Date / Time methyl salicylate Allergy Intermediate HIVES, Verified 03/05/24 08:55 "FEELS LIKE FIRE ON MY SKIN" codeine AdvReac Intermediate BECOMES Verified 03/05/24 08:55 VERY AGGRESSIVE Home Medications Medication Instructions Recorded Confirmed Type insulin NPH-regular 70-30 U-100 See Rx Instructions .Route .COMPLEX 03/05/24 03/26/24 History insulin 100 unit/mL subcutaneous pen (Novolin 70-30 FlexPen U-100 Insulin) Past Med/Surg History Problem List (Updated 03/26/24 @ 17:14 by Milo Garg DO) DKA (diabetic ketoacidosis) (Acute) Verbalizes suicidal thoughts Insurance coverage problems Financial insecurity Abdominal pain Gastroenteritis Severe hyperglycemia due to diabetes mellitus (Acute) Chronic diarrhea Hyperglycemic crisis in diabetes mellitus DKA (diabetic ketoacidosis) (Acute) Diarrhea JESSIE (acute kidney injury) (Acute) Elevated lactic acid level (Acute) Dehydration (Acute) Pneumomediastinum Left otitis media with effusion Type 1 diabetes mellitus (Acute) Esophageal perforation (Acute) Vomiting (Acute) Upper abdominal pain (Acute) DKA (diabetic ketoacidoses) (Acute) Epigastric pain (Acute) GERD (gastroesophageal reflux disease) (Acute) Diabetes (Chronic) Hypertension (Chronic) Major depressive disorder, recurrent episode Sebaceous cyst (Acute) Suicidal ideation (Acute) Tobacco abuse disorder Medical History Disorder of male genital organs, unspecified Rectal/anal hemorrhage Hx of psoriasis Surgical History No pertinent past surgical history Family History Father Cardiovascular disease Diabetes Mother Diabetes Other No significant family history Social History Smoking Status: Heavy tobacco smoker Tobacco Type: Cigarettes Cigarettes Per Day: 1 pack a day; Second Hand Exposure: No; Do You Dip or Chew Tobacco: No; Tobacco Cessation Education Requested by Patient: No Hx Alcohol Use: No Hx Substance Use: No Preferred Language: Mohawk Communication Ability: Effective Commercial Artist Lettering Required: No Beliefs That Will Affect Care: None marital status: Single Current Living Situation: Significant Other Current Living Situation Comment: lives with roomates current occupational status: employed Other Information That Helps Us Care for You: No Feels Safe at Home: Yes Safety Concerns: Feels Safe At This Time Gender Identity: Male Assistive Devices: Glasses Review of Systems Review of Systems: All systems reviewed & are unremarkable except as noted in Subjective Physical Exam Physical Exam: General: Alert, oriented, throwing up at times Skin: No noted rashes or bruises Psych: Appropriate mood and affect Neuro: No gross deficits HEENT: NC/AT CV: RRR Resp: Breath sounds clear bilaterally, no increased effort of breathing Abdomen: Soft, nontender Extremities: No edema in lower extremities bilaterally. Results & Data Results & Data Vital Signs (Past 12 Hours) Vital Signs Temp Pulse Resp BP Pulse Ox O2 Del Method 03/26/24 15:12 106 H 15 03/26/24 14:36 70 03/26/24 14:22 140/89 03/26/24 14:22 140/89 03/26/24 14:15 67 03/26/24 13:36 97 H 19 03/26/24 13:06 96 H 12 03/26/24 12:46 78 03/26/24 12:43 63 17 99 Room Air 03/26/24 12:26 36.5 C 101 H 24 144/89 H 100 Room Air Diagnostic Findings Chest X-Ray 03/26/24 12:35 XR chest 1V portable CLINICAL HISTORY: Nausea and vomiting. COMPARISON STUDY: Chest radiograph September 28, 2022. Chest CT May 21, 2019. FINDINGS: Lung volumes are normal. Lungs are clear. There is no pneumothorax or pleural effusion. Cardiac size is normal. Mediastinal contours are normal. There is no evidence for pulmonary edema. IMPRESSION: No acute cardiopulmonary findings. ACT 112: Negative or not required by law. Electronically signed by: Luiz Davey M.D. 03/26/2024 2:06 PM (1) DKA (diabetic ketoacidosis) Diabetes mellitus complication detail: without coma Diabetes mellitus type: due to underlying condition Qualified Code(s): E08.10 - Diabetes mellitus due to underlying condition with ketoacidosis without coma
[2024-03-26] MEDS ORDERED: PHARMACY GLYCEMIC MGMT CONSULT PRN (16:15)
[2024-03-26] MEDS ORDERED: INSULIN ASPART PER UNIT CHARGE SC SCH (16:30)
[2024-03-26] MEDS: DKA GOAL RANGE 150-250 mg/dl ONE (17:09)
[2024-03-26] MEDS: STAT IV Infusion **Titration per Protocol STA (17:09)
[2024-03-26] MEDS: D5W AND 1/2NSS + 20MEQ KCL 20 MEQ/1,000 ML BAG IV SCH (17:10)
[2024-03-26 17:44] LABS: Estimated Average Glucose 260 mg/dl; Hemoglobin A1C 10.7 % (4.5-5.6)
[2024-03-26] MEDS ORDERED: ONDANSETRON INJ 2 MG/ML 2 ML VIAL IV PRN (18:01)
[2024-03-26] MEDS: PANCREAZE (LIPASE 10,500U) CAP PO SCH (19:37)
[2024-03-26 20:11] LABS: BUN Creatinine Ratio 16.9 (10-20); Calcium 8.9 mg/dl (8.6-10.3); Creatinine Clr Calc Pharmacy 118.2 ml/min; Est GFR (African American) 127.5 ml/min; Magnesium 1.8 mg/dl (1.7-2.4); Phosphorus 2.1 mg/dl (2.5-4.9); Potassium 3.8 mmol/L (3.5-5.1)
[2024-03-26] MEDS: NICOTINE 14 MG/24 HR PATCH TD SCH (20:16)
[2024-03-26] MEDS ORDERED: POTASSIUM PHOS 3 MMOL/1 ML INFUSION IV STA (20:47)
[2024-03-26 20:53] LABS: BUN Creatinine Ratio 17.1 (10-20); Calcium 8.6 mg/dl (8.6-10.3); Creatinine Clr Calc Pharmacy 128.2 ml/min; Est GFR (African American) 131.9 ml/min; Est GFR (Non-African American) 113.8 ml/min; Potassium 3.9 mmol/L (3.5-5.1)
[2024-03-26] MEDS: INSULIN ASPART PER UNIT CHARGE SC SCH (21:43)
[2024-03-26] MEDS: POTASSIUM PHOSPHATE 15 MMOL in SODIUM CHLORIDE 0.9% 250 ML IV ONE (21:44)
--- OUTSIDE RECORDS SUMMARY | 2024-03-26 22:15 | External Medical Summary | Summary of Care ---
Author Name Unknown Organization [facility] Address [address] [place] [address] Phone [phone] Care Team Providers Care Administrative Resources Associate Name Role Phone iDdi Pandya MD Primary Care Provid er Reason for Referral * Evaluate & Treat - Unlimited Visits (Within 10 days (routine)) - Pending Review Specialty Diagnoses / Procedures Referred By Adeola cortez Referred To Contact Endocrinology/Metabolism / Endocrinology Diagnoses DM type 1, not at goal (HCC) Willian Schultz MD [address] [place] [address] Referral ID Status Reason Start Date Expiration Date Visits Requested Visits Authorized [id number] Pending Review Specialty Services Required 03/23/[phone] Question Answer Referral Priority Within 10 days (routine) Where should this appointment be scheduled? [facility] For what condition is the patient being referred? Diabetes Mellitus For which diabetes condition are you referring? Type 1 Encounter Details Date Type Department Care Team ([facility] Contact Info) Description 03/23/2024 Orders Only Access Center, [address] Ext *DO NOT REMOVE THIS DEPARTMENT* ANJEL WHITLOCK [phone] Request, External Referral DM type 1, not at goal (HCC)* Allergies Active Allergy Reactions Criticality Noted Date Comments Codeine Psych complications 07/08/2016 Icy Hot Hives,Itching 03/19/2020 documented as of this encounter (statuses as of 03/23/2024) Medications Medication Sig Dispensed Refills Start Date End Date Status Accu-Chek Guide In Vitro Strip (Glucose Blood) Use to test blood sugars 4 times a day Dx E10.9 400 Strip 3 10/19/2021 Active Accu-Chek FastClix Lancets Use to test blood sugars 4 times a day Dx E10.9 408 Each 3 10/19/2021 Active OneTouch Ultra 2 w/Device KitIndications:DM type 1, not at goal (HCC) Use to test blood sugars 4 times a day Dx E10.9 1 Each 10/28/2021 Active OneTouch Delica Lancets 33GIndications:DM type 1, not at goal (HCC) Use to test blood sugars 4 times a day Dx E10.9 400 Each 3 10/28/2021 Active OneTouch Ultra Blue In Vitro Strip (Glucose Blood)Indications:DM type 1, not at goal (HCC) Use to test blood sugars 4 times a day Dx E10.9 400 Strip 3 10/28/2021 Active Sildenafil Citrate 20 MG Oral Tablet (Revatio) Take by mouth 1-5 Tablets daily as needed for Erectile Dysfunction. 80 Tablet 11 03/17/2022 Active Dexcom G6 SensorIndications:Typ e 1 diabetes mellitus with ketoacidosis without coma (HCC) Use as directed. Change every 10 days 9 Each 1 12/07/2022 Active Dexcom G6 TransmitterIndication s:Type 1 diabetes mellitus with ketoacidosis without coma (HCC) Use as directed. Change every 90 days 1 Each 3 01/10/2023 Active Creon 80283-22648 UNIT Oral Capsule Delayed Release Particles (Pancrelipase ([id number]))Indic ations:Pancreatic insufficiency Take 1 Capsule by mouth in the morning and 1 Capsule at noon and 1 Capsule in the evening. 270 Capsule 3 02/09/2023 Active Omnipod 5 G6 Pod (Gen 5) Use as directed. Change every 2-3 days. 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), managed as type 1 (HCC),Type 1 diabetes mellitus with ketoacidosis without coma (HCC) INJECT 30 UNITS UNDER THE SKIN ONCE DAILY IN EVENT OF INSULIN PUMP FAILURE 15 mL 5 06/07/2023 Active documented as of this encounter (statuses as of 03/23/2024) Active Problems Problem Noted Date Diagnosed Date Excessive caffeine intake 12/03/2022 Pancreatic insufficiency 12/03/2022 Incontinence of feces with fecal urgency Chronic diarrhea 09/04/2022 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 History of suicidal ideation 09/03/2022 Tobacco abuse disorder 09/03/2022 Gastroesophageal reflux disease 09/03/2022 H/O Clostridium difficile infection 09/03/2022 Marijuana smoker 09/03/2022 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), 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 Impotence due to erectile dysfunction 07/01/2020 Diabetes mellitus 09/07/2017 Recurrent major depressive episodes 09/07/2017 Diabetes mellitus with ketoacidosis 09/07/2017 SLAVA (generalized anxiety disorder) 08/10/2017 documented as of this encounter (statuses as of 03/23/2024) Resolved Problems Problem Noted Date Diagnosed Date Resolved Date Type 2 diabetes mellitus wit h hemoglobin A1c goal of less than 7.0% 09/03/2022 09/03/2022 Food insecurity 04/13/2021 08/18/2023 Overview: Per [facility] Protocol documented as of this encounter (statuses as of 03/23/2024) Immunizations Name Administration Dates Next Due TME-JFOH-VCU PENTAVALENT NON-US 12/16/18 92,12/28/1988,1987,1986,1987 HIB PRP-OMP, 3 dose (Pedvax) 12/28/1988 MMR - Measles/Mumps/Rubella Vaccine 12/17/1991,1 1987 OPV - Polio Virus Vaccine (Oral) 992,07/27/1988,1987,1986 Seasonal Influenza, Quadriva lent, No Preserve, IM 09/05/2018 TDAP (age 10 and older)(Boostrix) 03/19/2021 documented as of this encounter Social History Tobacco Use Types Packs/Day Years Used Date Smoking Tobacco: Every Day Cigarettes 0.3 19.5 Started: 09/24/2004 Pipe Smokeless Tobacco: Never Comments:uses about 1/2 oz t in a wk Alcohol Use Standard Drinks/Week Comments Yes 0 (1 standard drink = 0.6 oz pur e alcohol) Rare PHQ-2 Answer Date Recorded PHQ-2 Score 0 05/19/2020 Hunger Vital Sign Answer Date Recorded Worried About Running Out of Food in the Last Ye ar Sometimes true 05/19/2020 Ran Out of Food in the Last Year Sometimes true 05/19/2020 Sex and Gender Information Value Date Recorded Sex Assigned at Not on file Gender Identity Not on file Sexual Orientation Straight 05/19/2020 11 :41 AM EDT Job Start Date Occupation Industry Not on file Not on file Not on file documented as of this encounter Plan of Treatment Scheduled Referrals Name Type Priority Associated Diagnoses Order Schedule ADULT ENDOCRINOLOGY REFERRAL OP Referral Within 10 days (routine) DM type 1, not at goal (HCC) Ordered: 03/23/2024 Health Maintenance Due Date Last Done Comments DISCUSS TOBACCO CESSATION (REFER TO SMARTSET #[id number]) 1987 Pneumococcal Vaccine: Pediatrics (0 to 5 Years) and At-Risk Patients (6 to 64 Years) (1 of 2 - PCV) 1993 Hepatitis B Vaccine (1 of 3 - 19+ 3-dose series) 2006 Depression Monitoring 05/19/2021 05/19/2020 Diabetic Eye Exam 08/21/2021 08/21/2020 Albumin/Creatinine Ratio 09/21/2022 022, 04/12/2018, 07/22/2016 HbA1c 03/04/2023 09/03/2022, 09/05, 02/02/2021, Additional history exists COVID-19 Vaccine ( - 2022- season) 2023 GFR 09/03/2023 09/03/2022, 11/04, 09/21/2021, Additional history exists Diabetic Foot Exam 10/25/2023 10/25/2022, 0 05/19/2020, 11/22/2018, Additional history exists Influenza Vaccine (FLU shot) (#1) 2024 09/05/2018 DTaP,Tdap,and Td Vaccines (2 - Td or Tdap) 03/19/2031 03/19/2021 HPV (Gardasil) Vaccine Aged Out No lo nger eligible based on patient's age to complete this topic MENINGOCOCCAL (MENACTRA/MENVEO) Aged Out No longer eligible based on patient's age to complete this topic documented as of this encounter Medical Devices Not on filedocumented as of this encounter Visit Diagnoses Diagnosis DM type 1, not at goal (HCC)- Primary Type I (juvenile type) diabetes mellitus without mention of complication, not stated as uncontrolled documented in this encounter Care Teams Administrative Resources Associate Relationship Specialty Start Date End Date Didi Pandya MD [address] [place] [address] PCP - General Family Medicine 03/10/22 documented as of this encounter
[2024-03-26 23:19] LABS: BUN Creatinine Ratio 14.4 (10-20); Calcium 8.6 mg/dl (8.6-10.3); Creatinine Clr Calc Pharmacy 116.8 ml/min; Est GFR (African American) 126.9 ml/min; Est GFR (Non-African American) 109.5 ml/min; Magnesium 1.8 mg/dl (1.7-2.4); Phosphorus 3.5 mg/dl (2.5-4.9)
[2024-03-27] MEDS: INSULIN ASPART PER UNIT CHARGE SC SCH (00:02)
[2024-03-27 03:14] LABS: BUN Creatinine Ratio 13.3 (10-20); Calcium 8.8 mg/dl (8.6-10.3); Creatinine Clr Calc Pharmacy 116.8 ml/min; Est GFR (African American) 126.9 ml/min; Est GFR (Non-African American) 109.5 ml/min; Magnesium 1.8 mg/dl (1.7-2.4); Phosphorus 3.7 mg/dl (2.5-4.9); Potassium 3.7 mmol/L (3.5-5.1)
[2024-03-27 06:36] LABS: Basophils # (auto) 0.04 K/uL (0.00-0.20); Basophils % (auto) 0.3 %; Eosinophils % (auto) 0.6 %; Hematocrit (blood only) 37.5 % (42.0-52.0); Hemoglobin 13.6 g/dl (14.0-18.0); Immature Granulocytes # (auto) 0.05 K/uL (0.01-0.20); Immature Granulocytes % (auto) 0.3 %; Lymphocytes # (auto) 1.18 K/uL (1.20-3.40); Lymphocytes % (auto) 7.5 %; Mean Corpuscular Hemoglobin 31.9 pg (25.0-34.0); Mean Corpuscular Hgb Conc 36.3 g/dL (32.0-36.0); Mean Corpuscular Volume 87.8 fL (80.0-100.0); Mean Platelet Volume 9.9 fL (9.4-12.4); Monocytes # (auto) 1.23 K/uL (0.11-0.59); Monocytes % (auto) 7.8 %; Neutrophils # (auto) 13.07 K/uL (1.40-6.50); Neutrophils % (auto) 83.5 %; Platelet Count 168 K/uL (130-400); RDW Standard Deviation 38.9 fL (36.4-46.3); Red Blood Count 4.27 M/uL (4.70-6.10); White Blood Count 15.67 K/ul (4.8-10.8)
[2024-03-27 06:50] LABS: BUN Creatinine Ratio 13.3 (10-20); Calcium 8.6 mg/dl (8.6-10.3); Creatinine Clr Calc Pharmacy 126.7 ml/min; Est GFR (African American) 131.2 ml/min; Est GFR (Non-African American) 113.2 ml/min; Magnesium 1.8 mg/dl (1.7-2.4); Phosphorus 2.9 mg/dl (2.5-4.9); Potassium 3.5 mmol/L (3.5-5.1)
[2024-03-27 06:56] LABS: Albumin Globulin Ratio 1.8 (0.9-2); Albumin Level 3.8 gm/dl (3.4-5.0); BUN Creatinine Ratio 13.1 (10-20); Bilirubin,Total 0.9 mg/dl (0.2-1.0); Calcium 8.6 mg/dl (8.6-10.3); Creatinine Clr Calc Pharmacy 125.2 ml/min; Est GFR (African American) 130.6 ml/min; Est GFR (Non-African American) 112.6 ml/min; Globulin 2.1 gm/dl (2.5-4.0); Potassium 3.5 mmol/L (3.5-5.1); Total Protein 5.9 gm/dl (6.0-8.3)
--- NOTE | 2024-03-27 07:08 | Electrocardiogram Report ---
Test Reason : Blood Pressure : / mmHG Vent. Rate : 099 BPM Atrial Rate : 099 BPM P-R Int : 144 ms QRS Dur : 084 ms QT Int : 382 ms P-R-T Axes : 078 087 080 degrees QTc Int : 490 ms Normal sinus rhythm Normal ECG When compared with ECG of 28-SEP-2022 15:51, No significant change Confirmed by Chivo Rockwell ([id number]) on 03/27/2024 7:08:28 AM Referred By: REFERRED SELF Confirmed By:Chivo Rockwell
[2024-03-27] MEDS: LANTUS PER UNIT CHARGE SC SCH (08:44)
[2024-03-27] MEDS ORDERED: LANTUS PER UNIT CHARGE SC SCH (09:30)
--- NOTE | 2024-03-27 10:35 | Pharmacy Report ---
Pharmacy Glycemic Short Note 2 - Date of Service March 27, 2024 - Glycemic Short BSG Results (Last 24 hours): 03/26/24 03/26/24 03/26/24 12:27 12:41 12:45 Glucose 494 H* POC Glucose 559 H* POC Glucose (other) 482 H* 03/26/24 03/26/24 03/26/24 14:34 16:08 17:05 Glucose POC Glucose 303 H* 163 H 121 H POC Glucose (other) 03/26/24 03/26/24 03/26/24 17:20 17:36 18:01 Glucose POC Glucose 127 H 122 H 133 H POC Glucose (other) 03/26/24 03/26/24 03/26/24 18:19 18:29 18:45 Glucose POC Glucose 136 H 149 H 132 H POC Glucose (other) 03/26/24 03/26/24 03/26/24 19:00 19:15 19:17 Glucose 131 H POC Glucose 132 H 133 H POC Glucose (other) 03/26/24 03/26/24 03/26/24 19:40 20:18 20:20 Glucose 150 H POC Glucose 151 H 151 H POC Glucose (other) 03/26/24 03/26/24 03/26/24 21:42 22:38 23:58 Glucose 151 H POC Glucose 161 H 146 H POC Glucose (other) 03/27/24 03/27/24 03/27/24 02:36 03:54 05:52 Glucose 120 H 129 H POC Glucose 165 H POC Glucose (other) 03/27/24 03/27/24 05:52 07:24 Glucose 128 H POC Glucose 213 H POC Glucose (other) OUTPATIENT ANTIDIABETIC REGIMEN: * Patient was on a pump, but this was stopped fue to insurance issues * Patient obtained 70/30 and administered 50 units of this yesterday before presenting to the ED. ASSESSMENT: * Patient is a T1DM who presented in DKA after administering 50 units of 70/30 insulin yesterday ~1 hour prior to arrival. Patient was then started on an insulin infusion until metabolic derangements and BSG improved at which time the drip was discontinued. Overnight patient was maintained on ~3 units of novolog using CR/CF data from last admission in 2022. After reviewing this, basal insulin was added this morning. Continued adjustments to basal bolus regimen are likely given unknown current needs. * Patient is ordered a diet. PLAN FOR INPATIENT GLYCEMIC CONTROL: * Hold outpatient oral diabetes medications * Basal insulin * Lantus 20 units SQ x 1 this morning * Bolus insulin * NovoLog per scale ACHS or Q6hrs while NPO * Goal Range: Low 110 mg/dL - High 140 mg/dL * Correction Factor: 50 mg/dL/unit * Nutritional / Prandial insulin per carb ratio of 1 unit per 11 grams CHO consumed
[2024-03-27] MEDS ORDERED: ALUMINUM/MAGNESIUM/SIMETH (MAALOX MAX) 30 ML UDC PO PRN (10:44)
[2024-03-27 11:15] LABS: BUN Creatinine Ratio 10.1 (10-20); Calcium 8.7 mg/dl (8.6-10.3); Creatinine Clr Calc Pharmacy 118.2 ml/min; Est GFR (African American) 127.5 ml/min; Magnesium 1.7 mg/dl (1.7-2.4); Phosphorus 2.6 mg/dl (2.5-4.9); Potassium 3.4 mmol/L (3.5-5.1)
[2024-03-27] MEDS: PANTOprazole 40 MG in SYRINGE 0 ML IV SCH (12:00)
--- NOTE | 2024-03-27 12:05 | Hospitalist Progress Note ---
Date of Service March 27, 2024 Assessment & Plan (1) DKA (diabetic ketoacidosis): Plan Pt is a 38yoM with medical history significant for DM1, anxiety/mood disorder, history pneumomediastinum, chronic diarrhea, ongoing tobacco abuse who presents with intractable N/V in the setting of DKA. Diabetic Ketoacidosis with intractable N/V in setting of Uncontrolled Type 1 DM- improving. DKA resolved. Previously on insulin pump but can not afford once he lost medicaid and now on insulin 70/30 which he gets through [facility]. Continue lantus, humalog, diabetic diet. Glycemic pharmacist managing. tapper hand consulted. - On admission, BG 494 , HA1c 10. VBG pH 7.29, pCO2 39, HCO3 19. UA with 3+ glucose, 4+ ketones. AG resolved. Hypokalemia- repleted, recheck in am Chronic Diarrhea with stool incontinence- states this might be related to his stress. Stool culture pending. Will start on fibers, creon. GI consulted. States he saw GI more than a year ago but never had colonoscopy before. Tobacco abuse- Nicotine patch. encourage cessation GERD- complains of heart burn. Will start on PPI and maalox prn. Leucocytosis- likely reactive. recheck in am Diet: Carb controlled, low fat, lactose free, easy to digest DVT prophylaxis: ambulation Dispo: Pending medical stability, GI and psych eval Time spent: Approx 35 mins Admission and Anticipated Discharge Date Admission Date: March 26, 2024 Subjective Patient was seen and examined at bedside. Ambulating independently. Feels better. Tolerating full liquid diet without any nausea, vomiting, although some abd discomfort. Complains of severe stress as well as chronic diarrhea with nocturnal stool incontinence. States his incontinence might be related to his stress and would appreciate any help with regards to that. He states he had medicaid but did not qualify anymore once his hourly wage was above the state threshold. He currently gets his medications and doctors appointment through [facility]. He also states mi would not give him lantus despite having the doctor's prescription. His diabetes was well controlled when he was on insulin pump when he had medicaid but not anymore as he can't afford that- he is currently on insulin 70/30. States he saw behavioral health last week but is not on any meds. He would like to see psychiatry and GI. Review of Systems Review of Systems: All systems reviewed & are unremarkable except as noted in Subjective Physical Exam Physical Exam: General: Lying comfortably in bed, not in distress, on room air HEENT: EOMI, MARCO A, MMM Chest: Clear breath sounds bilaterally, no wheezes or crackles CVS: Regular rate and rhythm, normal heart sounds, no murmur Abdomen: Soft, non tender, not distended, normal bowel sounds Neuro: Awake, alert, oriented, conversing well, non focal Extremities: No cyanosis, clubbing or edema Psych: Anxious Results & Data Results & Data Vital Signs (Past 12 Hours) Vital Signs Temp Pulse Pulse Resp BP Pulse Ox O2 Del Method 03/27/24 08:11 36.9 C 92 H 18 115/72 98 Room Air 03/27/24 07:30 90 03/27/24 03:55 36.7 C 93 H 18 117/65 98 Room Air 03/26/24 23:58 36.7 C 86 18 95/63 L 96 Room Air Laboratory Results Short CBC 03/26/24 03/26/24 03/27/24 Range/Units 12:41 13:45 05:52 WBC Cancelled 8.69 15.67 H Hgb Cancelled 14.0 13.6 L Hct Cancelled 38.9 L 37.5 L Plt Count Cancelled 145 168 BMP 03/26/24 03/26/24 03/26/24 12:41 13:45 19:15 Sodium TNP 137 140 Potassium TNP 4.2 3.8 Chloride 95 L 105 Carbon Dioxide 18 L 27 BUN 19 15 Creatinine 1.26 0.89 D Glucose 494 H* 131 H Calcium 10.2 8.9 03/26/24 03/26/24 03/27/24 20:20 22:38 02:36 Sodium 139 139 140 Potassium 3.9 4.0 3.7 Chloride 105 105 105 Carbon Dioxide BUN 14 13 12 Creatinine 0.82 0.90 0.90 Glucose 150 H 151 H 120 H Calcium 8.6 8.6 8.8 03/27/24 03/27/24 03/27/24 05:52 05:52 05:52 Sodium 138 139 Potassium 3.5 3.5 Chloride 104 Carbon Dioxide BUN Creatinine Glucose Calcium 03/27/24 03/27/24 03/27/24 05:52 05:52 05:52 Sodium Potassium Chloride 104 Carbon Dioxide 22 23 BUN 11 11 Creatinine 0.83 Glucose Calcium 03/27/24 03/27/24 03/27/24 05:52 05:52 05:52 Sodium Potassium Chloride Carbon Dioxide BUN Creatinine 0.84 Glucose 129 H 128 H Calcium 8.6 8.6 03/27/24 10:25 Sodium 136 Potassium 3.4 L Chloride 101 Carbon Dioxide 24 BUN 9 Creatinine 0.89 Glucose 177 H Calcium 8.7 Liver Function 03/26/24 03/26/24 03/27/24 Range/Units 12:41 13:45 05:52 Total Bilirubin 1.0 0.9 (0.2-1.0) mg/dl AST TNP 15 13 ALT 21 12 (7-52) U/L Alkaline Phosphatase 115 H 79 (34-104) U/L Albumin 5.1 H 3.8 (3.4-5.0) gm/dl Urine 03/26/24 Range/Units Unknown Urine Color Yellow Urine Appearance Clear (Clear) Urine pH 5.5 (4.5-7.5) Ur Specific [place] 1.033 H (1.000-1.030) Urine Protein Negative (Negative) Urine Glucose (UA) 3+ H (Negative) (1) DKA (diabetic ketoacidosis) Diabetes mellitus complication detail: without coma Diabetes mellitus type: due to underlying condition Qualified Code(s): E08.10 - Diabetes mellitus due to underlying condition with ketoacidosis without coma
[2024-03-27] MEDS: PSYLLIUM or GUAR GUM FIBER 4GM PACKET PO SCH (12:53)
--- NOTE | 2024-03-27 13:00 | Gastrointestinal Consultation ---
Date of Consultation March 27, 2024 Assessment & Plan (1) Diarrhea: This is not a new issue and attempts have been made to work up this problem in the past with [facility], but compliance has been an issue. Unclear if this is an infectious process, diabetic diarrhea, pancreatic insufficiency, inflammatory process, as patient has not pursued the recommended studies. -OK to continue Creon prior to meals and snacks as patient has had some relief of symptoms with this. Consider discussing cost with social work as the [employer] does have income based assistance programs to make the med affordable. -We should obtain a stool PCR/C diff to exclude any new infectious process as he notes nocturnal symptoms have presented lately; pending results can consider imaging -Ultimately will need to re-establish with [facility] to complete his work-up with further send-out labs, EGD, & colonoscopies at at time when he is not admitted for DKA. -If stool studies unremarkable, can temporarily utilize Imodium as needed to supportively care for symptoms until seen by [facility]. Supervising Physician Co-Signing Physician Notes I personally saw and examined the patient. I have reviewed the chart and agree with the documentation provided by the EDI CONSULTANT including discussion about the assessment, treatment and plan. Briefly, 38 yo male with type 1 diabetes mellitus, anxiety/mood disorder, history of pneumomediastinum, tobacco abuse, & chronic diarrhea. He presented to the ED due to nausea and vomiting and was found to be in DKA. GI has been consulted as patient has had 6 years of diarrhea. He notes diarrhea is worse after eating. He does feel like his symptoms are worse than previous. He notes he is now experiencing nocturnal stooling and incontinence. A1C is 10.7. No bleeding. On creon without much benefit. DDX: Diabetic diarrhea, microscopic colitis, lower risk for IBD given length of diarrhea w/o treatment, vs functional bowel disease. Suggest cholestyramine 4 gm bid for treatment. Suggest outpt colonoscopy outpt (especially as in setting for DKA). Outpt compliance is an issue. History of Present Illness Reason for Consultation: Diarrhea Attending Physician: Ludwin Stanley MD History of Present Illness Patient is a 38 yo male with type 1 diabetes mellitus, anxiety/mood disorder, history of pneumomediastinum, tobacco abuse, & chronic diarrhea. He presented to the ED due to nausea and vomiting and was found to be in DKA. GI has been consulted as patient has had 6 years of diarrhea. He notes diarrhea is worse after eating. He does feel like his symptoms are worse than previous. He notes he is now experiencing nocturnal stooling and incontinence. He notes cramping prior to bowel movements but resolution after. It is important to note that this patient has been evaluated for these symptoms in the past with [facility]. He has been scheduled for EGD & colonoscopy on numerous occasions but has not followed through. He had a negative Celiac panel. He has been on pancreatic enzymes as a trial with some improvement in his symptoms, however notes that he could not afford them. [facility] in the past has advised stool studies, fecal elastase, gastrin levels, & VIP levels which he did not follow through with. His current HA1C is 10.7. Allergies Allergy/AdvReac Type Severity Reaction Status Date / Time methyl salicylate Allergy Intermediate HIVES, Verified 03/05/24 08:55 "FEELS LIKE FIRE ON MY SKIN" codeine AdvReac Intermediate BECOMES Verified 03/05/24 08:55 VERY AGGRESSIVE Home Medications Medication Instructions Recorded Confirmed Type insulin NPH-regular 70-30 U-100 See Rx Instructions .Route .COMPLEX 03/05/24 03/26/24 History insulin 100 unit/mL subcutaneous pen (Novolin 70-30 FlexPen U-100 Insulin) Patient History Medical History Disorder of male genital organs, unspecified Rectal/anal hemorrhage Hx of psoriasis Surgical History No pertinent past surgical history Family History Father Cardiovascular disease Diabetes Mother Diabetes Other No significant family history Social History Smoking Status: Heavy tobacco smoker Tobacco Type: Cigarettes Cigarettes Per Day: 1 pack a day; Second Hand Exposure: No; Do You Dip or Chew Tobacco: No; Tobacco Cessation Education Requested by Patient: No Hx Alcohol Use: No Hx Substance Use: No Preferred Language: Azerbaijani Communication Ability: Effective Power Plant 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 Required: No Beliefs That Will Affect Care: None marital status: Single Current Living Situation: Significant Other Current Living Situation Comment: lives with roomates current occupational status: employed Other Information That Helps Us Care for You: No Feels Safe at Home: Yes Safety Concerns: Feels Safe At This Time Gender Identity: Male Assistive Devices: None Review of Systems Constitutional: no fever and no chills Respiratory: no cough and no dyspnea Cardiovascular: no chest pain Gastrointestinal: no abdominal pain Psychiatric: no problem reported Physical Exam Constitutional: well developed Respiratory: normal respiratory effort Cardiovascular: Rate/Rhythm: regular rate Gastrointestinal (Abdomen): normal bowel sounds, soft, nontender, no hepatosplenomegaly Psychiatric: Orientation: alert and oriented x 3 Results & Data Vital Signs (Past 12 Hours) Vital Signs Temp Pulse Pulse Resp BP Pulse Ox O2 Del Method 03/27/24 11:50 36.7 C 90 18 124/77 98 Room Air 03/27/24 08:11 36.9 C 92 H 18 115/72 98 Room Air 03/27/24 07:30 90 03/27/24 03:55 36.7 C 93 H 18 117/65 98 Room Air PG Care Time/CCT Total # of Minutes Spent Total Time Spent with Patient: Total time spent is greater than 50% in coordination of care (as documented) at patient's floor/unit and/or counseling patient: Coding Level of Care Code 68430 IN/OBS CONSULT LVL 4,60M Diagnoses Diarrhea R19.7
[2024-03-27 14:20] LABS: C Reactive Protein 1.93 mg/dl (0-0.5)
[2024-03-27] MEDS: POTASSIUM CHLORIDE CRTAB 20 MEQ TABCR PO STA (15:09)
--- NOTE | 2024-03-27 15:47 | Psychiatric Consultation ---
Date of Consultation March 27, 2024 Impression / Recommendations Yrn Gonzalez is a 38 yo man with a history of T1DM, anxiety, depression, chronic diarrhea, and tobacco use admitted medically for DKA. Psychiatry consulted for "severe stress/anxiety". Diagnostically consistent with unspecified anxiety likely a combination of SLAVA, adjustment disorder and possible PTSD component given history of childhood trauma vs secondary to ongoing medical conditions. Certainly anxiety disorders can present with GI symptoms/diarrhea/nausea though fecal incontinence driven primarily by anxiety would be very atypical. Agree with GI involvement. Acute risk of self-harm is low given denial of current depressive symptoms, denial of SI, future-oriented and feels well supported by [facility]. Chronic risk is high given multiple non-modifiable risk factors including chronic illness, multiple prior attempts, limited social supports, financial strain, and prior psychiatric hospitalizations. Counseled on ways to reduce modifiable acute and chronic risk factors by continuing to engage with outpatient services and consideration for psychiatric medication trial. Reviewed various psychiatric medication options. Based on his history of significant medication side effects, suspect he may be a slow metabolizer and would encourage starting with lower than typical dosages to reduce risk for side effects. Recommend SSRI trial, he would like to avoid this while in the inpatient setting given possible risk for increased GI symptoms on initiation. He is interested in Vistaril, reviewed this can be very effective for anxiety and anticholinergic effects sometimes cause constipation which theoretically may reduce risk of incontinence/diarrhea issues. Will defer to hospitalists regarding benefits of any further GI workup regarding these symptoms. Overall, I spent a total of 60 minutes with this case including review of chart records, review of labwork, review of EKG QTc, direct evaluation of the patient at bedside, counseling the patient, discussion of the patient with the Nurse and with the hospitalist provider, discussion with the psychiatric liason during clinical rounds and documentation in the electronic health record. (1) Anxiety: (2) DKA (diabetic ketoacidosis): Diabetes mellitus complication detail: without coma Diabetes mellitus type: due to underlying condition Qualified Code(s): E08.10 - Diabetes mellitus due to underlying condition with ketoacidosis without coma (3) Diarrhea: Plan -Consider use of Vistaril 25mg q4h prn for anxiety and 50mg HS prn for insomnia (ensure QTc remains <500ms if frequent doses are utilized) -In future recommend consideration for SSRI trial such as sertraline 25mg qd or escitalopram 5mg qd if fecal incontinence and anxiety symptoms persist -Psych liason to get CRIS this psych consult note can be sent to [facility] for coordination of care Psych History Identifying Data Yosvany Gonzalez is a 38 yo man with a history of T1DM, anxiety, depression, chronic diarrhea, and tobacco use admitted medically for DKA. Psychiatry consulted for "severe stress/anxiety" Chief Complaint "I'm trying to get a handle on my health". History of Present Illness Yosvany was admitted for DKA and reported ongoing stressors including nighttime fecal incontinence which he feels is worse on days when he is feeling more stressed and anxious. He was seen by the psychiatry consult service earlier this month on 03/05/2024 for suicide risk assessment. He denies any recent suicidal ideation (last occurred two weeks ago) and feels his depression has improved which he credits to starting to get care at [facility]. He reports the providers and CM there have been incredibly supportive and helpful and are working with him to get his health under control and helping him apply for financial assistance programs. He feels his main psychiatric symptom is anxiety and that when anxiety builds it seems to worsen his fecal incontinence and leads to depression if anxiety "builds and builds until it bursts". He's interested in any medication options which might help with anxiety as he's hopeful this could also help reduce fecal incontinence. He has a history of more than 30 suicide attempts, primarily through overdosing and hanging. Since being diagnosed with diabetes, he has also attempted suicide via insulin overdose and inducing high blood sugar levels leading to coma. He's been psychiatrically hospitalized twice, with the last inpatient admission occurring three to four years ago. No access to guns. He has previously been on Effexor, which caused a bad reaction, and another medication for anxiety and sleep, possibly Remeron, which led to significant sedation and urinary incontinence. During his most recent admission he tried Ativan, which was helpful for anxiety and that evening after taking it had no episodes of incontinence. We reviewed the challenges with more frequent and long-term benzodiazepine use which he agrees with trying to avoid/limit use of. He is currently seeking a longer-term medication option for his anxiety and depression symptoms. Allergies Allergy/AdvReac Type Severity Reaction Status Date / Time methyl salicylate Allergy Intermediate HIVES, Verified 03/05/24 08:55 "FEELS LIKE FIRE ON MY SKIN" codeine AdvReac Intermediate BECOMES Verified 03/05/24 08:55 VERY AGGRESSIVE Home Medications Medication Instructions Recorded Confirmed Type insulin NPH-regular 70-30 U-100 See Rx Instructions .Route .COMPLEX 03/05/24 03/26/24 History insulin 100 unit/mL subcutaneous pen (Novolin 70-30 FlexPen U-100 Insulin) Patient History Medical History Disorder of male genital organs, unspecified Rectal/anal hemorrhage Hx of psoriasis Surgical History No pertinent past surgical history Family History Father Cardiovascular disease Diabetes Mother Diabetes Other No significant family history Social History Smoking Status: Heavy tobacco smoker Tobacco Type: Cigarettes Cigarettes Per Day: 1 pack a day; Second Hand Exposure: No; Do You Dip or Chew Tobacco: No; Tobacco Cessation Education Requested by Patient: No Hx Alcohol Use: No Hx Substance Use: No Preferred Language: Gibraltarian Communication Ability: Effective Quarry Supervisor Required: No Beliefs That Will Affect Care: None marital status: Single Current Living Situation: Significant Other Current Living Situation Comment: lives with roomates current occupational status: employed Other Information That Helps Us Care for You: No Feels Safe at Home: Yes Safety Concerns: Feels Safe At This Time Gender Identity: Male Assistive Devices: None Physical Exam Psychiatric: Orientation: alert and oriented x 3 Apperance: appropriately dressed and appropriately groomed Eye Contact: good eye contact Motor Behavior: no abnormal motor movements Speech: normal rate/rhythm/volume of speech Affect: + anxious affect Mood: + anxious mood; no depressed mood Thought Process: goal directed thought process Thought Content: reality based without delusions Suicidal Thoughts: denies suicidal thoughts Homicidal Thoughts: denies homicidal thoughts Hallucinations: no auditory hallucinations and no visual hallucinations Cognition: attention grossly intact and language grossly intact Estimated Intelligence: consistent with education level Insight: + fair insight Judgment: + fair judgement Vital Signs (Past 24 Hours): Last Vital Signs Temp 36.7 C 03/27/24 11:50 Pulse 83 03/27/24 15:00 Resp 18 03/27/24 11:50 BP 124/77 03/27/24 11:50 Pulse Ox 98 03/27/24 11:50 O2 Del Method Room Air 03/27/24 11:50 Results & Data (PSY) Medications Administered Lipase/Protease/Amylase (Pancreaze (Lipase 10,500u) Cap) 1 cap PO TID [facility] Stop: 04/25/24 20:59 Last Admin: 03/27/24 14:40 Dose: 1 cap Documented By: Admin: 03/27/24 08:45 Dose: 1 cap Documented By: Admin: 03/26/24 19:37 Dose: 1 cap Documented By: ARTHUR Pantoprazole Sodium 40 mg/ (Syringe) 10 mls @ 5 mls/min IV BID [facility] Stop: 04/26/24 10:59 Last Admin: 03/27/24 12:00 Dose: 5 mls/min Documented By: NAEEM Insulin Aspart (Insulin Aspart Per Unit Charge) 0 units SC ACHS [facility] Stop: 04/25/24 20:59 Last Admin: 03/27/24 12:10 Dose: 3 units Documented By: NAEEM Co-signed By: LIONEL Admin: 03/27/24 08:43 Dose: 3 units Documented By: NAEEM Co-signed By: SERVANDO Admin: 03/26/24 21:43 Dose: 1 units Documented By: ARTHUR Co-signed By: ANTONY Miscellaneous (Remove Nicoderm Patch) 1 each N/A DAILY@[id number] [facility] Stop: 04/26/24 08:58 Last Admin: 03/27/24 08:57 Dose: 1 each Documented By: NAEEM Nicotine (Nicotine 14 Mg/24 Hr Patch) 1 patch TD QAM [facility] Stop: 04/25/24 19:29 Last Admin: 03/27/24 08:45 Dose: 1 patch Documented By: Admin: 03/26/24 20:16 Dose: 1 patch Documented By: ARTHUR Psyllium Hydrophilic Mucilloid (Psyllium Or Guar Gum Fiber 4gm Packet) 4 gm PO QAM [facility] Stop: 04/26/24 10:59 Last Admin: 03/27/24 12:53 Dose: 4 gm Documented By: NAEEM Coding Level of Care Code 38762 IN/OBS CONSULT LVL 4,60M Diagnoses Anxiety F41.9 DKA (diabetic ketoacidosis) E08.10 Diabetes mellitus complication detail: without coma Diabetes mellitus type: due to underlying condition Diarrhea R19.7
[2024-03-28] MEDS: INSULIN ASPART PER UNIT CHARGE SC SCH (00:27)
[2024-03-28 02:33] LABS: Adenovirus F 40/41 PCR Not Detected (NotDetected); Astrovirus PCR Not Detected (NotDetected); Campylobacter PCR Not Detected (NotDetected); Cryptosporidium PCR Not Detected (NotDetected); Cyclospora cayetanensis PCR Not Detected (NotDetected); Entamoeba histolytica PCR Not Detected (NotDetected); Enteroaggregative E.coli(EAEC) Not Detected (NotDetected); Enteropathogenic E.coli (EPEC) Not Detected (NotDetected); Enterotoxigenic E.coli (ETEC) Not Detected (NotDetected); Giardia lamblia PCR Not Detected (NotDetected); Norovirus GI/GII PCR Not Detected (NotDetected); Plesiomonas shigelloides PCR Not Detected (NotDetected); Rotavirus A PCR Not Detected (NotDetected); Salmonella PCR Not Detected (NotDetected); Sapovirus PCR Not Detected (NotDetected); Shiga-like Toxin E.coli (STEC) Not Detected (NotDetected); Shigella/Enteroinvasive E.coli Not Detected (NotDetected); Vibrio cholerae PCR Not Detected (NotDetected); Vibrio species PCR Not Detected (NotDetected); Yersinia enterocolitica PCR Not Detected (NotDetected)
[2024-03-28 06:20] LABS: Hematocrit (blood only) 39.6 % (42.0-52.0); Hemoglobin 14.2 g/dl (14.0-18.0); Mean Corpuscular Hemoglobin 32.1 pg (25.0-34.0); Mean Corpuscular Hgb Conc 35.9 g/dL (32.0-36.0); Mean Corpuscular Volume 89.6 fL (80.0-100.0); Mean Platelet Volume 9.6 fL (9.4-12.4); Platelet Count 147 K/uL (130-400); RDW Standard Deviation 39.5 fL (36.4-46.3); Red Blood Count 4.42 M/uL (4.70-6.10); White Blood Count 5.46 K/ul (4.8-10.8)
[2024-03-28 06:27] LABS: Albumin Globulin Ratio 1.6 (0.9-2); Albumin Level 3.7 gm/dl (3.4-5.0); BUN Creatinine Ratio 8.5 (10-20); Bilirubin,Total 0.8 mg/dl (0.2-1.0); Calcium 8.7 mg/dl (8.6-10.3); Creatinine Clr Calc Pharmacy 111.9 ml/min; Est GFR (African American) 120.4 ml/min; Est GFR (Non-African American) 103.9 ml/min; Globulin 2.3 gm/dl (2.5-4.0); Magnesium 1.8 mg/dl (1.7-2.4); Phosphorus 3.1 mg/dl (2.5-4.9); Potassium 3.7 mmol/L (3.5-5.1)
[2024-03-28] MEDS ORDERED: hydrOXYzine HCl 25 MG TAB PO PRN ×2 (07:36→07:37)
[2024-03-28] MEDS: LANTUS PER UNIT CHARGE SC ONE (08:50)
--- NOTE | 2024-03-28 10:28 | Pharmacy Report ---
Pharmacy Glycemic Short Note 2 - Date of Service March 28, 2024 - Glycemic Short BSG Results (Last 24 hours): 03/27/24 03/27/24 03/27/24 10:25 11:22 16:09 Glucose 177 H POC Glucose 151 H 191 H 03/27/24 03/28/24 03/28/24 20:09 00:12 03:55 Glucose POC Glucose 154 H 146 H 119 H 03/28/24 03/28/24 05:41 07:05 Glucose 162 H POC Glucose 188 H OUTPATIENT ANTIDIABETIC REGIMEN: * Patient was on a pump, but this was stopped fue to insurance issues * Patient obtained 70/30 and administered 50 units of this yesterday before presenting to the ED. * HbA1c: 10.7% (03/26/24) ASSESSMENT: 03/28: * Yosvany received 34 units of insulin yesterday, 20 basal + 14 bolus. BSGs were: [phone] mg/dL. * Fasting BSG improved to 188 mg/dL this AM. Still not at goal so will increase basal slightly today. Previous records show 30 units basal/day via pump. * No changes to Novolog for now as patient's BSG trended down nicely yesterday. * Patient is likely to be discharged today. Plan is to go home on [facility]'s 70/30 insulin. Recommended 20 units SC daily with breakfast and 10 units SC daily with dinner. 03/27: * Patient is a T1DM who presented in DKA after administering 50 units of 70/30 insulin yesterday ~1 hour prior to arrival. Patient was then started on an insulin infusion until metabolic derangements and BSG improved at which time the drip was discontinued. Overnight patient was maintained on ~3 units of novolog using CR/CF data from last admission in 2022. After reviewing this, basal insulin was added this morning. Continued adjustments to basal bolus regimen are likely given unknown current needs. * Patient is ordered a diet. PLAN FOR INPATIENT GLYCEMIC CONTROL: * Basal insulin * Lantus 22 units SC daily * Bolus insulin * NovoLog per scale ACHS or Q6hrs while NPO * Goal Range: Low 110 mg/dL - High 140 mg/dL * Correction Factor: 50 mg/dL/unit * Nutritional / Prandial insulin per carb ratio of 1 unit per 11 grams CHO consumed
--- NOTE | 2024-03-28 11:34 | Gastroenterology Progress Note ---
Date of Service March 28, 2024 Assessment & Plan (1) Chronic diarrhea: Plan: -Celiac panel pending -Stool PCR negative, so would recommend re-establishing with [facility] as an outpatient to pursue colonoscopy for further evaluation of his ongoing symptoms once his DM1 has been adequately stabilized. -Ok to use Imodium prn to supportively treat symptoms. Admission and Anticipated Discharge Date Admission Date: March 26, 2024 Supervising Physician Co-Signing Physician Notes I personally saw and examined the patient. I have reviewed the chart and agree with the documentation provided by the ENGINEER BYPRODUCT including discussion about the assessment, treatment and plan. Still with some diarrhea. Overall improvement. cdiff negative. Outpt colonoscopy. Immodium or cholestyremine to treat him supportively. Needs tighter control of glucose as diabetic diarrhea usually improves once a1c close to 8. Subjective Patient is a 38 yo male with chronic diarrhea. Patient's stool PCR is negative. Celiac panel pending. Primary team is addressing hyperglycemia that led to his hospitalization. Patient does not have new complaints. Review of Systems Gastrointestinal: + diarrhea/loose stools Physical Exam Constitutional: well developed Respiratory: normal respiratory effort Psychiatric: Orientation: alert and oriented x 3 Results & Data Results & Data Vital Signs (Past 12 Hours) Vital Signs Temp Pulse Pulse Resp BP Pulse Ox O2 Del Method 03/28/24 10:09 Room Air 03/28/24 07:39 37.1 C 83 17 128/83 99 Room Air 03/28/24 07:35 75 03/28/24 03:57 36.6 C 79 18 120/81 97 Room Air 03/28/24 00:14 36.6 C 73 18 117/72 96 Room Air PG Care Time/CCT Total # of Minutes Spent Total Time Spent with Patient: Total time spent is greater than 50% in coordination of care (as documented) at patient's floor/unit and/or counseling patient: Coding Level of Care Code 42686 SUB INP/OBS CARE 2/35MIN Diagnoses Chronic diarrhea K52.9
--- NOTE | 2024-03-28 13:23 | Discharge Summary ---
Date of Service March 28, 2024 Admission HPI Per Admitting Provider Pt is a 38yoM with medical history significant for DM1, anxiety/mood disorder, history pneumomediastinum, chronic diarrhea, ongoing tobacco abuse who presents with intractable N/V in the setting of DKA. History obtained from pt and sophia at bedside as well as the chart. has been using 70/30 insulin three times a day with meals. Was seen at [facility] 2 wks ago, states "was switched to the pen". Adamant that he has been taking the insulin. States he was previously on an insulin pump but unable to afford the pods, notes without insurance it can be $3000. Pt was recently seen by psych with suicide ideation in the setting of not being able to afford his medications. States this has been going on for the last 8 months. Notes that he usually has the nausea and vomiting but they are usually able to get it under control. They note that today though he was trying to stay hydrated, they could not seem to get it under control. They state he has not been able to eat or drink anything. He notes that he has chronic stool incontinence where he states in his sleep it just leaks out. States cannot afford the pancreatic enzymes he needs to help. Shows stool stains on the ED bed. States he is agreeable to restarting the enzymes but not sure if he will be able to afford it after he leaves the hospital. At the time of admission, notes some improvement in his symptoms. Admission Exam Per Admitting Provider General: Alert, oriented, throwing up at times Skin: No noted rashes or bruises Psych: Appropriate mood and affect Neuro: No gross deficits HEENT: NC/AT CV: RRR Resp: Breath sounds clear bilaterally, no increased effort of breathing Abdomen: Soft, nontender Extremities: No edema in lower extremities bilaterally. Principal Diagnosis DKA Discharge Exam General: Lying comfortably in bed, not in distress, on room air HEENT: EOMI, MARCO A, MMM Chest: Clear breath sounds bilaterally, no wheezes or crackles CVS: Regular rate and rhythm, normal heart sounds, no murmur Abdomen: Soft, non tender, not distended, normal bowel sounds Neuro: Awake, alert, oriented, conversing well, non focal Extremities: No cyanosis, clubbing or edema Psych: Anxious Discharge Data Allergies Allergy/AdvReac Type Severity Reaction Status Date / Time methyl salicylate Allergy Intermediate HIVES, Verified 03/05/24 08:55 "FEELS LIKE FIRE ON MY SKIN" codeine AdvReac Intermediate BECOMES Verified 03/05/24 08:55 VERY AGGRESSIVE Consultations 03/26/24 14:41 ED Decision to Admit Stat 03/27/24 10:40 Consult Gastroenterology Routine 03/27/24 10:49 Consult Psychiatry Routine Ordered Studies Laboratory Results WBC 5.46 K/ul (4.8-10.8) D 03/28/24 05:41 RBC 4.42 M/uL (4.70-6.10) L 03/28/24 05:41 Hgb 14.2 g/dl (14.0-18.0) 03/28/24 05:41 POC Hgb 15.6 g/dl (14.0-18.0) 03/26/24 12:45 Hct 39.6 % (42.0-52.0) L 03/28/24 05:41 POC Hct 46 % (42-52) 03/26/24 12:45 MCV 89.6 fL (80.0-100.0) 03/28/24 05:41 MCH 32.1 pg (25.0-34.0) 03/28/24 05:41 MCHC 35.9 g/dL (32.0-36.0) 03/28/24 05:41 RDW Std Deviation 39.5 fL (36.4-46.3) 03/28/24 05:41 RDW Coeff of Bhavik 12.0 % (11.5-14.5) 03/28/24 05:41 Plt Count 147 K/uL (130-400) 03/28/24 05:41 MPV 9.6 fL (9.4-12.4) 03/28/24 05:41 Immature Gran % (Auto) 0.3 % 03/27/24 05:52 Neut % (Auto) 83.5 % 03/27/24 05:52 Lymph % (Auto) 7.5 % 03/27/24 05:52 [place] % (Auto) 7.8 % 03/27/24 05:52 Eos % (Auto) 0.6 % 03/27/24 05:52 Baso % (Auto) 0.3 % 03/27/24 05:52 Neut # (Auto) 13.07 K/uL (1.40-6.50) H 03/27/24 05:52 Lymph # (Auto) 1.18 K/uL (1.20-3.40) L 03/27/24 05:52 [place] # (Auto) 1.23 K/uL (0.11-0.59) H 03/27/24 05:52 Eos # (Auto) 0.10 K/uL (0.00-0.50) 03/27/24 05:52 Baso # (Auto) 0.04 K/uL (0.00-0.20) 03/27/24 05:52 Immature Gran # (Auto) 0.05 K/uL (0.01-0.20) 03/27/24 05:52 Absolute Nucleated RBC Cancelled 03/26/24 12:41 Nucleated RBC % (auto) Cancelled 03/26/24 12:41 Neutrophils % (Manual) Cancelled 03/26/24 12:41 Band Neutrophils % Cancelled 03/26/24 12:41 Lymphocytes % (Manual) Cancelled 03/26/24 12:41 Prolymphocyte % Cancelled 03/26/24 12:41 Reactive Lymphs % (Man) Cancelled 03/26/24 12:41 Monocytes % (Manual) Cancelled 03/26/24 12:41 Eosinophils % (Manual) Cancelled 03/26/24 12:41 Basophils % (Manual) Cancelled 03/26/24 12:41 Metamyelocytes % (Man) Cancelled 03/26/24 12:41 Myelocytes % (Man) Cancelled 03/26/24 12:41 Promyelocytes % (Man) Cancelled 03/26/24 12:41 Blast Cells % (Manual) Cancelled 03/26/24 12:41 Plasma Cell % (Manual) Cancelled 03/26/24 12:41 Other Cells % Cancelled 03/26/24 12:41 Nucleated RBC % Cancelled 03/26/24 12:41 Neutrophils # (Manual) Cancelled 03/26/24 12:41 Band Neutrophils # Cancelled 03/26/24 12:41 Total Absolute Neuts Cancelled 03/26/24 12:41 Lymphocytes # (Manual) Cancelled 03/26/24 12:41 Prolymphocyte # Cancelled 03/26/24 12:41 Reactive Lymphs # Cancelled 03/26/24 12:41 Total Abs Lymphocytes Cancelled 03/26/24 12:41 Monocytes # (Manual) Cancelled 03/26/24 12:41 Eosinophils # (Manual) Cancelled 03/26/24 12:41 Basophils # (Manual) Cancelled 03/26/24 12:41 Metamyelocytes # (Man) Cancelled 03/26/24 12:41 Myelocytes # (Manual) Cancelled 03/26/24 12:41 Promyelocytes # (Man) Cancelled 03/26/24 12:41 Blast Cells # (Man) Cancelled 03/26/24 12:41 Plasma Cell # (Manual) Cancelled 03/26/24 12:41 Other Cells # Cancelled 03/26/24 12:41 Nucleated RBCs # (Man) Cancelled 03/26/24 12:41 Hypersegmented Neuts Cancelled 03/26/24 12:41 Hyposegmented Neuts Cancelled 03/26/24 12:41 Hypogranular Neuts Cancelled 03/26/24 12:41 Large Granular Lymphs Cancelled 03/26/24 12:41 # Lrg Granular Lymphs Cancelled 03/26/24 12:41 Hairy Cells Cancelled 03/26/24 12:41 Smudge Cells Cancelled 03/26/24 12:41 Toxic Granulation Cancelled 03/26/24 12:41 Toxic Vacuolation Cancelled 03/26/24 12:41 Dohle Bodies Cancelled 03/26/24 12:41 Lillian Rods Cancelled 03/26/24 12:41 Platelet Estimate Cancelled 03/26/24 12:41 Hypogranular Platelets Cancelled 03/26/24 12:41 Giant Platelets Cancelled 03/26/24 12:41 Platelet Satelliting Cancelled 03/26/24 12:41 RBC Morphology Cancelled 03/26/24 12:41 Polychromasia Cancelled 03/26/24 12:41 Hypochromasia Cancelled 03/26/24 12:41 Poikilocytosis Cancelled 03/26/24 12:41 Basophilic Stippling Cancelled 03/26/24 12:41 Anisocytosis Cancelled 03/26/24 12:41 Microcytosis Cancelled 03/26/24 12:41 Macrocytosis Cancelled 03/26/24 12:41 Spherocytes Cancelled 03/26/24 12:41 Pappenheimer Bodies Cancelled 03/26/24 12:41 Sickle Cells Cancelled 03/26/24 12:41 Target Cells Cancelled 03/26/24 12:41 Tear Drop Cells Cancelled 03/26/24 12:41 Ovalocytes Cancelled 03/26/24 12:41 Stomatocytes Cancelled 03/26/24 12:41 [place] Bodies Cancelled 03/26/24 12:41 Echinocytes Cancelled 03/26/24 12:41 Acanthocytes (Spur) Cancelled 03/26/24 12:41 Rouleaux Cancelled 03/26/24 12:41 RBC Agglutinates Cancelled 03/26/24 12:41 Schistocytes Cancelled 03/26/24 12:41 Sezary Cell Cancelled 03/26/24 12:41 PT 9.8 Seconds (9.0-12.0) 03/26/24 12:41 INR 0.9 (0.9-1.1) 03/26/24 12:41 VBG pH 7.40 (7.36-7.41) 03/27/24 10:25 VBG pCO2 39 mmHg (38-50) 03/26/24 12:42 VBG pO2 29 mmHg 03/26/24 12:42 VBG HCO3 19 mmol/L 03/26/24 12:42 VBG O2 Saturation < 60.0 % 03/26/24 12:42 VBG Base Excess -7.3 mEq/L 03/26/24 12:42 POC Sodium 134 mmol/L (135-144) L 03/26/24 12:45 Sodium 140 mmol/L (136-145) 03/28/24 05:41 POC Potassium 5.0 mmol/L (3.3-5.0) 03/26/24 12:45 Potassium 3.7 mmol/L (3.5-5.1) 03/28/24 05:41 POC Chloride 97 mmol/L (101-112) L 03/26/24 12:45 Chloride 105 mmol/L (98-107) 03/28/24 05:41 Carbon Dioxide 28 mmol/L (21-32) 03/28/24 05:41 POC Total CO2 19 mmol/L (24-31) L 03/26/24 12:45 Anion Gap 7 (3-11) 03/28/24 05:41 POC Anion Gap 24.0 mmol/L (16-25) 03/26/24 12:45 POC BUN 22 mg/dl (7-18) H 03/26/24 12:45 BUN 8 mg/dl (6-23) 03/28/24 05:41 Creatinine 0.94 mg/dl (0.6-1.4) 03/28/24 05:41 POC Creatinine 1.1 mg/dl (0.6-1.3) 03/26/24 12:45 Est Cr Clr Drug Dosing 111.9 ml/min 03/28/24 05:41 Est GFR ( Amer) 120.4 ml/min 03/28/24 05:41 Est GFR (Non-Af Amer) 103.9 ml/min 03/28/24 05:41 BUN/Creatinine Ratio 8.5 (10-20) L 03/28/24 05:41 Glucose 162 mg/dl (70-99(Fasting)) H 03/28/24 05:41 POC Glucose 252 mg/dl (70-99) H 03/28/24 11:29 POC Glucose (other) 482 mg/dl (70-99) H* 03/26/24 12:45 Estimat Average Glucose 260 mg/dl 03/26/24 13:45 Hemoglobin A1c 10.7 % (4.5-5.6) H 03/26/24 13:45 Calcium 8.7 mg/dl (8.6-10.3) 03/28/24 05:41 POC Ioniz Calcium Andrew 1.19 mmol/l (1.12-1.32) 03/26/24 12:45 Phosphorus 3.1 mg/dl (2.5-4.9) 03/28/24 05:41 Magnesium 1.8 mg/dl (1.7-2.4) 03/28/24 05:41 Total Bilirubin 0.8 mg/dl (0.2-1.0) 03/28/24 05:41 AST 16 U/L (13-39) 03/28/24 05:41 ALT 13 U/L (7-52) 03/28/24 05:41 Alkaline Phosphatase 79 U/L (34-104) 03/28/24 05:41 Troponin I High Sens 5.8 pg/ml (0-20) 03/26/24 12:41 C-Reactive Protein 1.93 mg/dl (0-0.5) H 03/27/24 10:25 Total Protein 6.0 gm/dl (6.0-8.3) 03/28/24 05:41 Albumin 3.7 gm/dl (3.4-5.0) 03/28/24 05:41 Globulin 2.3 gm/dl (2.5-4.0) L 03/28/24 05:41 Albumin/Globulin Ratio 1.6 (0.9-2) 03/28/24 05:41 Lipase 12 U/L (11-82) 03/26/24 12:41 Urine Color Yellow 03/26/24 Unknown Urine Appearance Clear (Clear) 03/26/24 Unknown Urine pH 5.5 (4.5-7.5) 03/26/24 Unknown Ur Specific [place] 1.033 (1.000-1.030) H 03/26/24 Unknown Urine Protein Negative (Negative) 03/26/24 Unknown Urine Glucose (UA) 3+ (Negative) H 03/26/24 Unknown Urine Ketones 4+ (Negative) H 03/26/24 Unknown Urine Blood Negative (Negative) 03/26/24 Unknown Urine Nitrite Negative (Negative) 03/26/24 Unknown Urine Bilirubin Negative (Negative) 03/26/24 Unknown Urine Urobilinogen Negative (Negative) 03/26/24 Unknown Ur Leukocyte Esterase Negative (Negative) 03/26/24 Unknown Stl C. cayetanensis PCR Not Detected (NotDetected) 03/28/24 00:50 Stool Rotavirus A PCR Not Detected (NotDetected) 03/28/24 00:50 Stl Adenov F 40/41 PCR Not Detected (NotDetected) 03/28/24 00:50 Stool Astrovirus (PCR) Not Detected (NotDetected) 03/28/24 00:50 Stool Campylobacter PCR Not Detected (NotDetected) 03/28/24 00:50 Stool Cryptosporidium PCR Not Detected (NotDetected) 03/28/24 00:50 Stl E.coli Shiga Tox PCR Not Detected (NotDetected) 03/28/24 00:50 Stl Enterotoxigenic E PCR Not Detected (NotDetected) 03/28/24 00:50 Stool EPEC (PCR) Not Detected (NotDetected) 03/28/24 00:50 Stool EAEC (PCR) Not Detected (NotDetected) 03/28/24 00:50 Stl E. histolytica PCR Not Detected (NotDetected) 03/28/24 00:50 Stool Giardia Lamblia PCR Not Detected (NotDetected) 03/28/24 00:50 Stool Salmonella PCR Not Detected (NotDetected) 03/28/24 00:50 Stool Sapovirus (PCR) Not Detected (NotDetected) 03/28/24 00:50 Stl P. shigelloides PCR Not Detected (NotDetected) 03/28/24 00:50 Stl Shigella/EIEC PCR Not Detected (NotDetected) 03/28/24 00:50 St Y.enterocolitica PCR Not Detected (NotDetected) 03/28/24 00:50 Stool Vibrio (PCR) Not Detected (NotDetected) 03/28/24 00:50 Stl Vibrio cholerae PCR Not Detected (NotDetected) 03/28/24 00:50 Stl Norovirus GI/GII PCR Not Detected (NotDetected) 03/28/24 00:50 Blood Parasites ID Cancelled 03/26/24 12:41 Impressions Chest X-Ray 03/26/24 12:35 XR chest 1V portable CLINICAL HISTORY: Nausea and vomiting. COMPARISON STUDY: Chest radiograph September 28, 2022. Chest CT May 21, 2019. FINDINGS: Lung volumes are normal. Lungs are clear. There is no pneumothorax or pleural effusion. Cardiac size is normal. Mediastinal contours are normal. There is no evidence for pulmonary edema. IMPRESSION: No acute cardiopulmonary findings. ACT 112: Negative or not required by law. Electronically signed by: Luiz Davey M.D. 03/26/2024 2:06 PM Hospital Course (1) DKA (diabetic ketoacidosis): Plan Pt is a 38yoM with medical history significant for DM1, anxiety/mood disorder, history pneumomediastinum, chronic diarrhea, ongoing tobacco abuse who presents with intractable N/V in the setting of DKA. Diabetic Ketoacidosis with intractable N/V in setting of Uncontrolled Type 1 DM- - On admission, BG 494 , HA1c 10. VBG pH 7.29, pCO2 39, HCO3 19. UA with 3+ glucose, 4+ ketones. DKA resolved. Previously on insulin pump but can not afford once he lost medicaid and now on insulin 70/30 which he gets through [facility]. Seen by telehealth nurse educator and glycemic pharmacist. Discharging on novolin 70/30 20 U am and 10 U pm with breakfast and dinner per glycemic pharmacist. Patient has been approved for MAWD as of this morning and plans to go back to insulin pump. Referral made by telehealth nurse educator for the same. He has all supplies at home. Hypokalemia- resolved Chronic Diarrhea with stool incontinence- Chronic issues. Stool PCR negative. Seen by GI. Recommend trial of metamucil and imodium prn. OP follow up with GI for further management including colonoscopy. Cleared by GI for discharge. Follow up on pending celiac panel. Tobacco abuse- Encourage cessation GERD- recommend OTC PPI and follow up with GI as OP Leucocytosis- likely reactive. resolved Anxiety- seen by GI. Recommended hydroxyzine prn. Patient is comfortable and stable for discharge home. Partner at bedside. Reviewed discharge plan. Total Time Total Time Spent Total Time Spent (In Minutes): 32 Discharge Plan Discharge Items Patient Disposition: Home - Self-Care Reason For Visit: N/V, DKA Discharge Diagnosis: DKA Activity: Resume your previous activity Non-emergency contact: Primary Care Provider Call non-emergency contact if: you have any medication questions, your symptoms worsen, your pain is concerning for you and you have a fever Follow-up/Referrals: Willian Schultz MD [Primary Care Provider] - ([address], [place] [address] [facility]- Suzi at [facility] says to keep your appointment that was scheduled on Apr 12. Please call them if you have any questions.) Diet: Carb Count or DM1 Addtl Attending Provider Instructions: You can take hydroxyzine 25 mg three times daily as needed for anxiety or sleep You can take imodium as needed for diarrhea You can take metamucil/psyllium daily to bulk up the stool Follow up with the GI doctor to consider colonoscopy Follow up with diabetes doctor to consider switching to insulin pump Pending Studies at Discharge: No Stand-Alone Forms: My [employer], Smoking Cessation Medications and DC Order Prescriptions: Changed Novolin 70-30 FlexPen U-100 100 unit/mL (70-30) Insulin Pen See Rx Instructions .ROUTE .COMPLEX Qty: 15 0RF Rx Instructions: 20 U with breakfast and 10 U with dinner Discharge Orders: Discharge Order (Routine); Ordered 03/28/24 Ordered By: Ludwin Mason/Other Patient Handouts: High Blood Sugar (Hyperglycemia), Hypoglycemia (Low Blood Sugar), Managing Type 1 Diabetes, How to Check Your Blood Sugar Admission Data Admit Date/Time: 03/26/24 15:36 Attending Provider: Ludwin Stanley Admit Provider: Ness Unger Primary Care Provider: Willian Schultz Other Providers: Ness Unger; Dru Wheeler; Sara Sanches; Musa Liao; Felix Mckay Jr; Joyce Perdomo; Odessa Oconnell; González Vidal Other Interventions: Discharge Summary Assessment (RN) Last Done: 03/28/24 12:18
[2024-03-29 14:47] LABS: IgA Serum 208 mg/dL (47-310); Tis Trans IgA <1.0 U/mL
== END 2024-03-28 12:55 | disposition home or self-care (01) | DRG 639 ==
LOC: ED 12:16 → SUATTDRO 15:36 → 2E 15:36